=== PATIENT | female | born 1980 | race Caucasian/White ===

== ENCOUNTER → 2019-07-30 13:42 | Outpatient (BNVA) | payer MEDICARE, MEDICAID, SELFPAY | PROVIDERS: Family Provider Nurse Practitioner; PCP Nurse Practitioner; Visit Provider Nurse Practitioner Psychiatric/Mental Health | DX: F33.2 Major depressive disorder, recurrent severe without psychotic features (principal); F41.0 Panic disorder [episodic paroxysmal anxiety]; F50.81 Binge eating disorder; Z91.5 Personal history of self-harm; F17.210 Nicotine dependence, cigarettes, uncomplicated | CPT/HCPCS: 99213 ==

== ENCOUNTER → 2019-09-02 13:48 | Outpatient (BNVA) | payer MEDICARE, MEDICAID, SELFPAY | PROVIDERS: Family Provider Nurse Practitioner; PCP Nurse Practitioner; Visit Provider Nurse Practitioner Psychiatric/Mental Health | DX: F33.2 Major depressive disorder, recurrent severe without psychotic features (principal); F41.0 Panic disorder [episodic paroxysmal anxiety]; F50.81 Binge eating disorder; F64.9 Gender identity disorder, unspecified; F17.210 Nicotine dependence, cigarettes, uncomplicated; Z91.5 Personal history of self-harm | CPT/HCPCS: 99213 ==

== ENCOUNTER → 2019-09-03 13:10 | Outpatient (BNVA) | payer MEDICARE, MEDICAID, SELFPAY | PROVIDERS: Family Provider Nurse Practitioner; PCP Nurse Practitioner; Visit Provider Anesthesiology | DX: M51.16 Intervertebral disc disorders with radiculopathy, lumbar region (principal); M17.0 Bilateral primary osteoarthritis of knee; F17.210 Nicotine dependence, cigarettes, uncomplicated; Z79.891 Long term (current) use of opiate analgesic | CPT/HCPCS: 99214 ==

== ENCOUNTER → 2019-09-08 16:02 | Outpatient (BNVA) | payer MEDICARE, MEDICAID, SELFPAY | PROVIDERS: Family Provider Nurse Practitioner; PCP Nurse Practitioner; Referring Provider Nurse Practitioner; Visit Provider Nurse Practitioner | DX: E03.9 Hypothyroidism, unspecified (principal); Z79.899 Other long term (current) drug therapy | CPT/HCPCS: 80053; 80061; 84443; 85025 ==

== ENCOUNTER → 2019-10-22 07:32 | Outpatient (BNVA) | payer MEDICARE, MEDICAID, SELFPAY | PROVIDERS: Family Provider Nurse Practitioner; PCP Nurse Practitioner; Visit Provider Nurse Practitioner Psychiatric/Mental Health | DX: F33.2 Major depressive disorder, recurrent severe without psychotic features (principal); F41.0 Panic disorder [episodic paroxysmal anxiety]; F50.81 Binge eating disorder; F64.9 Gender identity disorder, unspecified; F17.210 Nicotine dependence, cigarettes, uncomplicated; Z91.5 Personal history of self-harm; Z03.89 Encounter for observation for other suspected diseases and conditions ruled out; F41.1 Generalized anxiety disorder | CPT/HCPCS: 99213 ==

== ENCOUNTER → 2019-11-18 08:15 | Outpatient (BNVA) | payer MEDICARE, MEDICAID, SELFPAY | PROVIDERS: Family Provider Nurse Practitioner; PCP Nurse Practitioner; Visit Provider Nurse Practitioner Psychiatric/Mental Health | DX: F33.2 Major depressive disorder, recurrent severe without psychotic features (principal); F41.0 Panic disorder [episodic paroxysmal anxiety]; F50.81 Binge eating disorder; F64.9 Gender identity disorder, unspecified; F17.210 Nicotine dependence, cigarettes, uncomplicated; Z91.5 Personal history of self-harm | CPT/HCPCS: 99213 ==

== ENCOUNTER 2019-12-16 14:59 | Emergency (ER) | payer MEDICARE, MEDICAID, SELFPAY ==
[2019-12-16 15:42] VITALS: BP 186/122; PULSE 100; RESP 18; TEMP 36.4; O2SAT 94; BMI 59.6
--- NOTE | 2019-12-16 17:14 | W.ED.GENADLT ---
HPI - General Adult General: Chief complaint: General Medical Stated complaint: multiple complaints Time Seen by Provider: 12/16/19 17:04 Source: patient Mode of arrival: ambulatory Limitations: no limitations History of Present Illness: HPI narrative: Patient comes in today for complaints of bilateral lower extremities being erythematous. Patient believes he has a bout of cellulitis. Patient is also been concerned about some urinary difficulty and irregularity in her menstrual cycle. Patient thinks that she may be . Patient appears well. Patient appears in no pain at rest. Patient also has a history of chronic back pain and reports some mid back pain radiating around to bilateral upper abdomen. Review of Systems General: Reports: 10 or more systems reviewed and unremarkable except in HPI and below GI: Reports: abdominal pain : Reports: difficulty voiding and irregular period Skin/Breast: Reports: erythema (Bilateral lower extremities, worse on the left) PFSH ED PFSH: Medical History (Updated 12/16/19 @ 19:06 by SUSAN Chou) Acute bilateral knee pain Bilateral primary osteoarthritis of knee Binge eating disorder DDD (degenerative disc disease) Encounter for long-term opiate analgesic use Gender dysphoria Hypothyroidism Intervertebral disc disorders with radiculopathy, lumbar region Major depressive disorder, recurrent severe without psychotic features Nicotine dependence, cigarettes, uncomplicated Panic disorder without agoraphobia Personal history of self-harm Surgical History Hx of foot surgery Family History Other Diabetes Heart disease Social History Smoking and tobacco status: current every day smoker cigarettes Packs smoked per day: 0.5 Years cigarettes smoked: 20 Quit status (tobacco): not considering quitting Second hand smoke exposure: No Smoking risk assessment/counseling performed?: No Reason smoking risk assessment not done: other Alcohol intake: never History of recent travel: No Female Reproductive History: Date of last menstrual period: 11/25/19 Physical Exam Const: COMMON NORMALS: no acute distress and patient oriented x3 GENERAL APPEARANCE: cooperative HENMT: COMMON NORMALS: normocephalic, TM's normal bilaterally and Normal external nose present HEAD & SCALP: normal to inspection and normocephalic NOSE: Normal external nose present TYMPANIC MEMBRANE: TM's normal bilaterally MOUTH: Normal oral and palatal mucosa present THROAT: posterior oropharynx normal Eye: GENERAL EYE: appearance normal, both eyes and all related structures Neck/C-Spine: COMMON NORMALS: full ROM Lymph: LYMPHATIC: no lymphadenopathy noted Chest: COMMONS NORMALS: normal inspection of the chest Resp: COMMON NORMALS: normal respiratory effort EFFORT & INSPECTION: Yes able to speak in complete sentences Cardio: COMMON NORMALS: regular rate and regular rhythm RATE: regular rate RHYTHM: regular rhythm GI: PALPATION: Yes Tenderness to palpation present (GI) (Left upper and right upper quadrant abdominal tenderness to palpation. Normal bowel sounds are noted. No rigidity is noted. Abdomen is soft.) : COMMON NORMALS: Yes no CVA tenderness BLADDER/KIDNEY EXAM: Yes no CVA tenderness Back/Pelvis: COMMON NORMALS: no CVA tenderness and thoracic and lumbar spine normal to inspection Extremity: COMMON NORMALS: normal to inspection Neuro: COMMON NORMALS: patient oriented x3 and moves all extremities Psych: COMMON NORMALS: mental status grossly normal and cooperative Skin: NARRATIVE SKIN EXAM: Erythema is apparent to the left lower extremity up to mid lower leg. Pulses are intact distally. Right lower leg has less erythema without any other abnormality. Course Vital Signs: Vital signs: Vital Signs Temperature 97.5 F L 12/16/19 15:42 Pulse Rate 100 12/16/19 15:42 Respiratory Rate 18 12/16/19 15:42 Blood Pressure 186/122 12/16/19 15:42 Pulse Oximetry 94 12/16/19 15:42 MDM - General Adult [facility] Narrative: Medical decision making narrative: Patient comes in today with multiple complaints. Patient had redness to bilateral lower extremities worse on the left. Patient felt that her cellulitis may be acting up. Patient is also had some urinary difficulty with incontinence at times. Patient appears well. Vital signs were normal. Also patient complained of some right upper quadrant abdominal pain radiating to her back at times. Patient has no obese lady. Abdomen soft with normal bowel sounds. Laboratory values noted no significant white blood cell elevation. Patient did have some elevation in her liver enzymes but no elevation in lipase. Patient's blood glucose was slightly elevated at 340. Urinalysis showed a large amount of white blood cells. Reviewed with patient recommendations for treatment and further evaluation with recommendations of ultrasound of the gallbladder. I did offer to do that ultrasound this evening but patient wished to leave in order to attend a barbecue with her family. Recommended patient follow-up with primary care for further evaluation or return to the ER for worsening symptoms. Patient reported understanding. Lab Data: Labs: Lab Results 12/16/19 12/16/19 12/16/19 Range/Units 17:30 17:40 17:40 WBC 7.7 (4.0-10.0) 10^3/ uL RBC 4.84 (4.1-5.3) 10^6/u L Hgb 13.6 (11.5-15.3) g/dL Hct 43.1 (37.0-47.0) % MCV 89.0 (81-99) fL MCH 28.1 (28.0-34.0) pg MCHC 31.6 (30.0-36.0) g/dL RDW 14.5 (12.1-15.1) % Plt Count 282 (130-400) 10^3/c mm MPV 10.4 (7.4-10.4) fL Neut % (Auto) 69.3 % Lymph % (Auto) 22.8 % [place] % (Auto) 5.8 % Eos % (Auto) 1.4 % Baso % (Auto) 0.3 % Neut # (Auto) 5.4 (1.8-7.7) 10^3/u L Lymph # (Auto) 1.8 (0.8-4.8) 10^3/u L [place] # (Auto) 0.5 (0.2-0.9) 10^3/u L Eos # (Auto) 0.1 (0.0-0.8) 10^3/u L Baso # (Auto) 0.0 (0.0-0.1) 10^3/u L Nucleated RBC % (a uto) 0 % Nucleated RBCs # 0.0 /100WBC Sodium 134 L (136-145) mmol/L Potassium 4.5 (3.5-5.1) mmol/L Chloride 94 L (98-107) mmol/L Carbon Dioxide 28 (22-29) mmol/L Anion Gap 16.5 (5-19) BUN 12 (6-20) mg/dL Creatinine 0.7 (0.5-0.9) mg/dL GFR Calculation 93.6 (90-130) mL/min Glucose 346 H (65-115) mg/dL Calculated Osmolal ity 288 (285-295) mOsm/k g Calcium 9.3 (8.5-10.5) mg/dL Total Bilirubin 0.3 (0.15-1.2) mg/dL AST 84 H (0-32) U/L ALT 76 H (0-33) U/L Alkaline Phosphata se 108 H (35-105) IU/L Total Protein 7.8 (6.6-8.7) g/dL Albumin 4.2 (3.5-5.2) g/dL Globulin 3.6 (1.3-4.6) g/dL Lipase (13-60) U/L HCG, Qual (Negative) Urine Color Yellow (Yellow) Urine Appearance Cloudy (CLEAR) Urine pH 5 (5-7) Ur Specific Gravit y 1.020 (1.005-1.030) Urine Protein Neg (Negative) Urine Glucose (UA) 4+ H (Normal) Urine Ketones Negative (Negative) Urine Blood Neg (Negative) Urine Nitrate Negative (Negative) Urine Bilirubin Neg (NEGATIVE) Urine Urobilinogen Norm (Negative) mg/dL Ur Leukocyte Rosalva ase 1+ H (Negative) Urine RBC 0-4 H (0-2) /hpf Urine WBC 80-100 H (0-5) /hpf Ur Squamous Epith Cells 0-4 H (0-5) Ur Transition Epit h Cell 0-4 /hpf Urine Bacteria 1+ H (NONE) 12/16/19 12/16/19 Range/Units 17:40 17:40 WBC (4.0-10.0) 10^3/ uL RBC (4.1-5.3) 10^6/u L Hgb (11.5-15.3) g/dL Hct (37.0-47.0) % MCV (81-99) fL MCH (28.0-34.0) pg MCHC (30.0-36.0) g/dL RDW (12.1-15.1) % Plt Count (130-400) 10^3/c mm MPV (7.4-10.4) fL Neut % (Auto) % Lymph % (Auto) % [place] % (Auto) % Eos % (Auto) % Baso % (Auto) % Neut # (Auto) (1.8-7.7) 10^3/u L Lymph # (Auto) (0.8-4.8) 10^3/u L [place] # (Auto) (0.2-0.9) 10^3/u L Eos # (Auto) (0.0-0.8) 10^3/u L Baso # (Auto) (0.0-0.1) 10^3/u L Nucleated RBC % (a uto) % Nucleated RBCs # /100WBC Sodium (136-145) mmol/L Potassium (3.5-5.1) mmol/L Chloride (98-107) mmol/L Carbon Dioxide (22-29) mmol/L Anion Gap (5-19) BUN (6-20) mg/dL Creatinine (0.5-0.9) mg/dL GFR Calculation (90-130) mL/min Glucose (65-115) mg/dL Calculated Osmolal ity (285-295) mOsm/k g Calcium (8.5-10.5) mg/dL Total Bilirubin (0.15-1.2) mg/dL AST (0-32) U/L ALT (0-33) U/L Alkaline Phosphata se (35-105) IU/L Total Protein (6.6-8.7) g/dL Albumin (3.5-5.2) g/dL Globulin (1.3-4.6) g/dL Lipase 23 (13-60) U/L HCG, Qual Negative (Negative) Urine Color (Yellow) Urine Appearance (CLEAR) Urine pH (5-7) Ur Specific Gravit y (1.005-1.030) Urine Protein (Negative) Urine Glucose (UA) (Normal) Urine Ketones (Negative) Urine Blood (Negative) Urine Nitrate (Negative) Urine Bilirubin (NEGATIVE) Urine Urobilinogen (Negative) mg/dL Ur Leukocyte Rosalva ase (Negative) Urine RBC (0-2) /hpf Urine WBC (0-5) /hpf Ur Squamous Epith Cells (0-5) Ur Transition Epit h Cell /hpf Urine Bacteria (NONE) Discharge Plan Discharge Patient Disposition: Home, Self-Care Clinical Impression: UTI (urinary tract infection) Qualifiers: Urinary tract infection type: acute cystitis Hematuria presence: with hematuria Qualified Code(s): N30.01 - Acute cystitis with hematuria Cellulitis Qualifiers: Site of cellulitis: extremity Site of cellulitis of extremity: lower extremity Laterality: unspecified laterality Qualified Code(s): L03.119 - Cellulitis of unspecified part of limb Abdominal pain Qualifiers: Abdominal location: right upper quadrant Qualified Code(s): R10.11 - Right upper quadrant pain Condition: Stable Prescriptions: New cephalexin 500 mg capsule 500 mg PO Q8H 10 Days Qty: 30 RF: 0 No Action montelukast 10 mg tablet 10 mg PO DAILY RF: 0 gabapentin 600 mg tablet 1,200 mg PO TID 30 Days Qty: 180 RF: 2 quetiapine [Seroquel] 50 mg tablet 50 mg PO BID PRN (Reason: anxiety/agitation) Qty: 60 RF: 1 paroxetine HCl [Paxil] 20 mg tablet 20 mg PO QAM Qty: 30 RF: 3 paroxetine HCl [Paxil] 40 mg tablet 40 mg PO QAM Qty: 30 RF: 3 albuterol sulfate 90 mcg/actuation HFA aerosol inhaler 2 puff INHALATION 6XD PRN (Reason: shortness of breath or wheezing) Qty: 18 RF: 2 tizanidine [Zanaflex] 6 mg capsule 6 mg PO .Q4-6H PRN (Reason: muscle spasticity) 30 Days Qty: 90 RF: 2 levothyroxine 50 mcg capsule 50 mcg PO DAILY 30 Days Qty: 30 RF: 1 naproxen [Naprosyn] 500 mg tablet 500 mg PO Q12H 30 Days Qty: 60 RF: 2 amitriptyline 150 mg tablet 150 mg PO BEDTIME PRN (Reason: Sleep) RF: 0 Vyvanse 30 mg capsule 30 mg PO QAM PRN (Reason: unknown) RF: 0 trazodone 300 mg tablet 300 mg PO BEDTIME RF: 0 Tylenol 325 mg Tablet 325 mg PO PRN RF: 0 Discharge Orders: Discharge Order (Routine); Ordered 12/16/19 Ordered By: Sukhi Vigil Referrals: Gita Mary FNP [Primary Care Provider] - Discharge Diet: Usual diet Discharge Activity: Increase activity as tolerated Patient Instructions: Urinary Tract Infection in Women (ED) Activity Restrictions/Additional Instructions: Home and rest. Drink plenty of water. Take antibiotics as directed. Follow-up with primary care regarding right upper quadrant pain, would suggest having an ultrasound of the gallbladder to evaluate the gallbladder further for disease. Return to the ER for worsening symptoms or new concerns. Coding Level of Care Code ED Mobile Phone Salesperson for Chg Fwd Exam Comprehensive
[2019-12-16 17:47] LABS: Basophils % 0.3 %; Eosinophils # 0.1 10^3/uL (0.0-0.8); Eosinophils % 1.4 %; Hematocrit 43.1 % (37.0-47.0); Hemoglobin 13.6 g/dL (11.5-15.3); Lymphocytes # 1.8 10^3/uL (0.8-4.8); Lymphocytes % 22.8 %; Mean Corpuscular HGB Conc 31.6 g/dL (30.0-36.0); Mean Corpuscular Hemoglobin 28.1 pg (28.0-34.0); Mean Platelet Volume 10.4 fL (7.4-10.4); Monocytes # 0.5 10^3/uL (0.2-0.9); Monocytes % 5.8 %; Neutrophils # 5.4 10^3/uL (1.8-7.7); Neutrophils % 69.3 %; Nucleated Red Blood Cells % 0 %; Platelet Count 282 10^3/cmm (130-400); Red Blood Count 4.84 10^6/uL (4.1-5.3); Red Cell Distribution Width 14.5 % (12.1-15.1); White Blood Count 7.7 10^3/uL (4.0-10.0)
[2019-12-16 18:03] LABS: Alanine Aminotransferase 76 U/L (0-33); Albumin Level 4.2 g/dL (3.5-5.2); Alkaline Phosphatase 108 IU/L (35-105); Anion Gap 16.5 (5-19); Aspartate Amino Transferase 84 U/L (0-32); Blood Urea Nitrogen 12 mg/dL (6-20); Calcium 9.3 mg/dL (8.5-10.5); Carbon Dioxide 28 mmol/L (22-29); Chloride 94 mmol/L (98-107); Globulin 3.6 g/dL (1.3-4.6); Glomerular Filtration Rate 93.6 mL/min (90-130); Glucose 346 mg/dL (65-115); Osmolality Calculated 288 mOsm/kg (285-295); Potassium 4.5 mmol/L (3.5-5.1); Sodium 134 mmol/L (136-145); Total Bilirubin 0.3 mg/dL (0.15-1.2); Total Protein 7.8 g/dL (6.6-8.7)
[2019-12-16 18:24] LABS: HCG, Serum Qual Negative (Negative)
[2019-12-16 18:45] LABS: Urine Appearance Cloudy (CLEAR); Urine Color Yellow (Yellow); pH Urine 5 (5-7)
[2019-12-16 18:46] LABS: Add Urine Microscopic? YES; Bilirubin Urine Neg (NEGATIVE); Blood Urine Neg (Negative); Glucose Urine UA 4+ (Normal); Ketones Urine Negative (Negative); Leukocyte Esterase Urine 1+ (Negative); Nitrate Urine Negative (Negative); Protein Urine Neg (Negative); Urobilinogen Urine Norm (Negative)
[2019-12-16 18:46] LABS: Lipase 23 U/L (13-60)
[2019-12-16 18:52] LABS: Add Urine Culture? Yes; Bacteria Urine 1+; RBC Urine 0-4 /hpf (0-2); Squamous Epithelial Cell Urine 0-4 (0-5); Transitional Epi Cells Urine 0-4 /hpf; WBC Urine 80-100 /hpf (0-5)
[2019-12-16 19:20] VITALS: BP 143/121
--- NOTE | 2019-12-16 19:21 | PC.NURSE ---
Patient rang call light and expressed concern about her blood pressure, I retook her blood pressure and informed the physician and her concern if she was . I went to inform the patient of what the physician told me and he followed me in to talk to her.
[2019-12-16] MEDS: cephALEXin 500 mg Capsule PO (19:27)
[2019-12-16 19:28] VITALS: BP 143/121; RESP 16
== END 2019-12-16 19:30 | disposition home or self-care (01) ==
PROVIDERS: Physician Assistant; Emergency Provider Nurse Practitioner Family; PCP Nurse Practitioner
DX: N30.01 Acute cystitis with hematuria (principal); L03.119 Cellulitis of unspecified part of limb; F17.210 Nicotine dependence, cigarettes, uncomplicated
CPT/HCPCS: 12345; 36415; 80053; 81001; 83690; 84703; 85025; 87077; 87086; 87186; 99281; 99283

== ENCOUNTER 2019-12-21 17:50 | Emergency (ER) | payer MEDICARE, MEDICAID, SELFPAY ==
[2019-12-21 18:32] VITALS: BP 187/133; PULSE 95; RESP 14; TEMP 36.6; O2SAT 97; BMI 58.7
[2019-12-21 19:30] VITALS: BP 140/113; PULSE 90; RESP 18; O2SAT 94
--- NOTE | 2019-12-21 19:35 | W.ED.GENADLT ---
HPI - General Adult General: Chief complaint: General Medical Stated complaint: l leg pain, side pain Time Seen by Provider: 12/21/19 19:24 History of Present Illness: HPI narrative: Patient currently being treated for urinary tract infection complains about right kidney pain that radiates to her right flank been going on for a couple months worse this last week she comes the ER because he said it just hurts complaint: Right flank pain Onset (ago): month(s) Location: abdomen Severity: moderate Severity scale (1-10): 5 Quality: aching and sharp Pain Consistency: intermittent Relieving factors: none Exacerbating factors: none Associated symptoms: Reports no associated symptoms; Deny chest pain, dyspnea, headache(s), nausea, rash or vomiting Review of Systems Narrative: Dry mouth Const: Denies: fever(s), chills or body aches Eyes: Denies: change in vision or blurry vision ENMT: Denies: throat pain or nasal congestion Card: Denies: chest pain or dyspnea on exertion Resp: Denies: dyspnea, productive cough or non-productive cough GI: Denies: abdominal pain, nausea or vomiting : Reports: flank pain and urinary urgency Musc: Denies: extremity pain Skin/Breast: Denies: rash Neuro: Denies: headache(s) Psych: Denies: anxiety or depression Amilcar/Lymph: Denies: easy bruising PFS ED PFSH: Medical History (Updated 12/16/19 @ 19:06 by SUSAN Chou) Acute bilateral knee pain Bilateral primary osteoarthritis of knee Binge eating disorder DDD (degenerative disc disease) Encounter for long-term opiate analgesic use Gender dysphoria Hypothyroidism Intervertebral disc disorders with radiculopathy, lumbar region Major depressive disorder, recurrent severe without psychotic features Nicotine dependence, cigarettes, uncomplicated Panic disorder without agoraphobia Personal history of self-harm Surgical History Hx of foot surgery Family History Other Diabetes Heart disease Social History Smoking and tobacco status: current every day smoker cigarettes Packs smoked per day: 0.5 Years cigarettes smoked: 20 Quit status (tobacco): not considering quitting Second hand smoke exposure: No Smoking risk assessment/counseling performed?: No Reason smoking risk assessment not done: other Alcohol intake: never History of recent travel: No Female Reproductive History: Date of last menstrual period: 11/25/19 Physical Exam Const: COMMON NORMALS: no acute distress, average body habitus and patient oriented x3 HENMT: COMMON NORMALS: normocephalic HEAD & SCALP: normal to inspection and normocephalic FACE & SINUS: normal facial exam Eye: COMMON NORMALS: conjunctivae normal GENERAL EYE: appearance normal, both eyes and all related structures CONJUNCTIVA: Yes conjunctivae normal Neck/C-Spine: COMMON NORMALS: no JVD Chest: COMMONS NORMALS: normal inspection of the chest Resp: COMMON NORMALS: normal respiratory effort and clear to auscultation bilaterally AUSCULTATION: clear to auscultation bilaterally Cardio: COMMON NORMALS: no JVD, regular rate and regular rhythm RATE: regular rate RHYTHM: regular rhythm GI: COMMON NORMALS: Normal to inspection, nondistended, normoactive bowel sounds present : BLADDER/KIDNEY EXAM: Yes CVA tenderness (Pain radiates from the right flank into her abdomen and if I touch her skin it hurts to push deep it hurts ) on the right Back/Pelvis: GENERAL BACK: Yes CVA tenderness (Pain radiates from the right flank into her abdomen and if I touch her skin it hurts to push deep it hurts ) Extremity: COMMON NORMALS: normal to inspection and full ROM Neuro: COMMON NORMALS: patient oriented x3 Course Vital Signs: Vital signs: Vital Signs Temperature 97.8 F 12/21/19 18:32 Pulse Rate 90 12/21/19 19:30 Respiratory Rate 18 12/21/19 19:30 Blood Pressure 140/113 12/21/19 19:30 Pulse Oximetry 94 12/21/19 19:30 Discharge Plan Discharge Condition: Good Prescriptions: No Action montelukast 10 mg tablet 10 mg PO DAILY RF: 0 gabapentin 600 mg tablet 1,200 mg PO TID 30 Days Qty: 180 RF: 2 quetiapine [Seroquel] 50 mg tablet 50 mg PO BID PRN (Reason: anxiety/agitation) Qty: 60 RF: 1 paroxetine HCl [Paxil] 20 mg tablet 20 mg PO QAM Qty: 30 RF: 3 paroxetine HCl [Paxil] 40 mg tablet 40 mg PO QAM Qty: 30 RF: 3 albuterol sulfate 90 mcg/actuation HFA aerosol inhaler 2 puff INHALATION 6XD PRN (Reason: shortness of breath or wheezing) Qty: 18 RF: 2 tizanidine [Zanaflex] 6 mg capsule 6 mg PO .Q4-6H PRN (Reason: muscle spasticity) 30 Days Qty: 90 RF: 2 levothyroxine 50 mcg capsule 50 mcg PO DAILY 30 Days Qty: 30 RF: 1 naproxen [Naprosyn] 500 mg tablet 500 mg PO Q12H 30 Days Qty: 60 RF: 2 amitriptyline 150 mg tablet 150 mg PO BEDTIME PRN (Reason: Sleep) RF: 0 Vyvanse 30 mg capsule 30 mg PO QAM PRN (Reason: unknown) RF: 0 trazodone 300 mg tablet 300 mg PO BEDTIME RF: 0 Tylenol 325 mg Tablet 325 mg PO PRN RF: 0 cephalexin 500 mg capsule 500 mg PO Q8H 10 Days Qty: 30 RF: 0 Coding Level of Care Code ED Reconciliation Machine Operator for Chg Shilo
[2019-12-21 19:51] VITALS: BP 140/113
[2019-12-21] MEDS: cloNIDine 0.1 mg Tablet 0.3 MG PO (19:51)
[2019-12-21 20:00] LABS: Basophils % 0.3 %; Eosinophils # 0.1 10^3/uL (0.0-0.8); Eosinophils % 1.5 %; Hematocrit 40.8 % (37.0-47.0); Lymphocytes # 1.4 10^3/uL (0.8-4.8); Lymphocytes % 20.8 %; Mean Corpuscular HGB Conc 31.9 g/dL (30.0-36.0); Mean Corpuscular Hemoglobin 28.1 pg (28.0-34.0); Mean Corpuscular Volume 88.1 fL (81-99); Mean Platelet Volume 10.6 fL (7.4-10.4); Monocytes # 0.3 10^3/uL (0.2-0.9); Monocytes % 4.8 %; Neutrophils # 4.9 10^3/uL (1.8-7.7); Neutrophils % 71.7 %; Nucleated Red Blood Cells % 0 %; Platelet Count 262 10^3/cmm (130-400); Red Blood Count 4.63 10^6/uL (4.1-5.3); Red Cell Distribution Width 14.5 % (12.1-15.1); White Blood Count 6.9 10^3/uL (4.0-10.0)
[2019-12-21] MEDS: sodium chloride 0.9% 1,000 ML 999 ML IV (20:03)
[2019-12-21 20:13] LABS: Urine Appearance Clear (CLEAR); Urine Color Yellow (Yellow); pH Urine 5 (5-7)
[2019-12-21 20:14] LABS: Add Urine Microscopic? YES; Bilirubin Urine Neg (NEGATIVE); Blood Urine 3+ (Negative); Glucose Urine UA 4+ (Normal); Ketones Urine Negative (Negative); Leukocyte Esterase Urine Negative (Negative); Nitrate Urine Negative (Negative); Protein Urine Neg (Negative); Specific Gravity, Urine 1.015 (1.005-1.030); Urobilinogen Urine Norm (Negative)
[2019-12-21 20:15] LABS: Alanine Aminotransferase 85 U/L (0-33); Albumin Level 4.1 g/dL (3.5-5.2); Alkaline Phosphatase 102 IU/L (35-105); Anion Gap 18.2 (5-19); Aspartate Amino Transferase 119 U/L (0-32); Blood Urea Nitrogen 7 mg/dL (6-20); Calcium 9.4 mg/dL (8.5-10.5); Carbon Dioxide 25 mmol/L (22-29); Chloride 95 mmol/L (98-107); Globulin 3.5 g/dL (1.3-4.6); Glomerular Filtration Rate 111.9 mL/min (90-130); Glucose 376 mg/dL (65-115); Osmolality Calculated 289 mOsm/kg (285-295); Potassium 4.2 mmol/L (3.5-5.1); Sodium 134 mmol/L (136-145); Total Bilirubin 0.4 mg/dL (0.15-1.2); Total Protein 7.6 g/dL (6.6-8.7)
[2019-12-21 20:20] LABS: Add Urine Culture? No; Bacteria Urine TRACE; RBC Urine 0-4 /hpf (0-2); Squamous Epithelial Cell Urine 0-4 (0-5); WBC Urine 0-4 /hpf (0-5)
[2019-12-21] MEDS: ketorolac 30 mg/mL INJ IVP (20:54)
[2019-12-21 21:04] VITALS: BP 122/83; PULSE 78; RESP 18; O2SAT 94
[2019-12-21] MEDS: ketorolac 10 mg Tablet PO (21:52)
[2019-12-21 21:56] VITALS: BP 137/79; PULSE 91; RESP 18; O2SAT 94
[2019-12-22 03:37] LABS: Amphetamines Screen Urine Negative (Negative); Barbiturates Screen Urine Negative (Negative); Benzodiazepines Screen Urine Negative (Negative); Cocaine Screen Urine Negative (Negative); Opiate Screen Urine Negative (Negative); PCP Screen Urine Negative (Negative); THC Screen Urine Negative (Negative)
[2019-12-22 03:39] LABS: HCG Qualitative Urine. Negative (Negative)
== END 2019-12-21 21:58 | disposition home or self-care (01) ==
PROVIDERS: Emergency Provider Nurse Practitioner Family; PCP Nurse Practitioner
DX: R10.9 Unspecified abdominal pain (principal); F17.210 Nicotine dependence, cigarettes, uncomplicated; Z79.899 Other long term (current) drug therapy
CPT/HCPCS: 12345; 36415; 80053; 80306; 81001; 81025; 85025; 96360; 96361; 96372; 96374; 96375; 99283; J1815; J1885; J7030

== ENCOUNTER 2020-01-15 15:32 | Emergency (ER) | payer MEDICARE, MEDICAID, SELFPAY ==
[2020-01-15 15:41] VITALS: BP 159/95; PULSE 85; RESP 14; TEMP 36.3; O2SAT 96; BMI 58.3
--- NOTE | 2020-01-15 16:02 | XRR_ITS ---
PROCEDURE INFORMATION: Exam: XR Right Tibia and Fibula Exam date and time: 01/15/2020 4:03 PM Age: 39 years old Clinical indication: Injury or trauma; Fall; Initial encounter; Blunt trauma; Lower leg; Right; Additional info: Trauma/fall TECHNIQUE: Imaging protocol: XR Right tibia and fibula. Views: 2 views. COMPARISON: No relevant prior studies available. FINDINGS: Bones/joints: Normal. Soft tissues: There is edema and/or hematoma in the soft tissues surrounding the lower leg most prominent anteriorly. There are benign-appearing soft tissue calcifications. XR/XR tibia fibula RT 2V [id number] IMPRESSION: There is edema and/or hematoma in the soft tissues surrounding the lower leg most prominent anteriorly.
--- NOTE | 2020-01-15 16:03 | ED_ITS ---
HPI - Extremity Problem General: Chief complaint: Extremity Injury, Lower Stated complaint: right leg pain Time Seen by Provider: 01/15/20 15:59 History of Present Illness: HPI Narrative: Patient complains about right charles pain from a fall 2 days ago off the bed. She has a swelling above her right charles that is tender to touch and bruising is able ambulate MD Complaint: extremity pain and extremity swelling Onset (ago): day(s) Pain Consistency: constant Location: right and lower extremity Severity scale (1-10): 5 Quality: aching Relieving factors: nothing Exacerbating factors: range of motion Associated symptoms: Reports no associated symptoms; Deny chest pain, fever(s) or rash Review of Systems Const: Denies: fever(s), chills or body aches Eyes: Denies: change in vision or blurry vision ENMT: Denies: throat pain or nasal congestion Card: Denies: chest pain or dyspnea on exertion Resp: Denies: dyspnea, productive cough or non-productive cough GI: Denies: abdominal pain, nausea or vomiting Musc: Denies: extremity pain Skin/Breast: Reports: other (Has swelling skin and bruising right charles and also to her right humerus area); Denies: rash Neuro: Denies: headache(s) Psych: Denies: anxiety or depression Amilcar/Lymph: Denies: easy bruising PFSH ED PFSH: Medical History (Updated 12/29/19 @ 00:00 by ) Acute bilateral knee pain Bilateral primary osteoarthritis of knee Binge eating disorder DDD (degenerative disc disease) Encounter for long-term opiate analgesic use Gender dysphoria Hypothyroidism Intervertebral disc disorders with radiculopathy, lumbar region Major depressive disorder, recurrent severe without psychotic features Nicotine dependence, cigarettes, uncomplicated Panic disorder without agoraphobia Personal history of self-harm Surgical History Hx of foot surgery Family History Other Diabetes Heart disease Social History Smoking and tobacco status: current some day smoker cigarettes Packs smoked per day: 0.5 Years cigarettes smoked: 20 Quit status (tobacco): not considering quitting Second hand smoke exposure: No Smoking risk assessment/counseling performed?: No Reason smoking risk assessment not done: other Alcohol intake: never History of recent travel: No Female Reproductive History: Date of last menstrual period: 01/14/20 Physical Exam Const: COMMON NORMALS: no acute distress, average body habitus and patient oriented x3 HENMT: COMMON NORMALS: normocephalic HEAD & SCALP: normal to inspection and normocephalic FACE & SINUS: normal facial exam Eye: COMMON NORMALS: conjunctivae normal GENERAL EYE: appearance normal, both eyes and all related structures CONJUNCTIVA: Yes conjunctivae normal Neck/C-Spine: COMMON NORMALS: no JVD Chest: COMMONS NORMALS: normal inspection of the chest Resp: COMMON NORMALS: normal respiratory effort and clear to auscultation bilaterally AUSCULTATION: clear to auscultation bilaterally Cardio: COMMON NORMALS: no JVD, regular rate and regular rhythm RATE: regular rate RHYTHM: regular rhythm GI: COMMON NORMALS: Normal to inspection, nondistended, normoactive bowel sounds present Extremity: COMMON NORMALS: normal to inspection and full ROM Neuro: COMMON NORMALS: patient oriented x3 Skin: NARRATIVE SKIN EXAM: Bruising to right humerus and then has swollen area on her right lower leg proximal that appears to be a hematoma that is tender to the touch with bruising Course Vital Signs: Vital signs: Vital Signs Temperature 97.3 F L 01/15/20 15:41 Pulse Rate 85 01/15/20 15:41 Respiratory Rate 14 01/15/20 15:41 Blood Pressure 159/95 01/15/20 15:41 Pulse Oximetry 96 01/15/20 15:41 Discharge Plan Discharge Prescriptions: No Action gabapentin 600 mg tablet 1,200 mg PO TID 30 Days Qty: 180 RF: 2 quetiapine [Seroquel] 50 mg tablet 50 mg PO BID PRN (Reason: anxiety/agitation) Qty: 60 RF: 1 paroxetine HCl [Paxil] 20 mg tablet 20 mg PO QAM Qty: 30 RF: 3 paroxetine HCl [Paxil] 40 mg tablet 40 mg PO QAM Qty: 30 RF: 3 albuterol sulfate 90 mcg/actuation HFA aerosol inhaler 2 puff INHALATION 6XD PRN (Reason: shortness of breath or wheezing) Qty: 18 RF: 2 tizanidine [Zanaflex] 6 mg capsule 6 mg PO .Q4-6H PRN (Reason: muscle spasticity) 30 Days Qty: 90 RF: 2 levothyroxine 50 mcg capsule 50 mcg PO DAILY 30 Days Qty: 30 RF: 1 naproxen [Naprosyn] 500 mg tablet 500 mg PO Q12H 30 Days Qty: 60 RF: 2 trazodone 300 mg tablet 300 mg PO BEDTIME RF: 0 acetaminophen [Tylenol] 325 mg Tablet 325 mg PO PRN RF: 0 metformin 500 mg tablet 500 mg PO BID Qty: 30 RF: 0 Coding Level of Care Code ED Human Resources Director for Milagro Lao
[2020-01-15] MEDS: TRAMadol 50 mg Tablet 100 MG PO (16:08)
[2020-01-15 16:10] VITALS: PULSE 68
[2020-01-15 16:57] VITALS: PULSE 75; RESP 18; O2SAT 96
== END 2020-01-15 16:57 | disposition home or self-care (01) ==
PROVIDERS: Emergency Provider Nurse Practitioner Family; PCP Nurse Practitioner
DX: M79.604 Pain in right leg (principal); F17.210 Nicotine dependence, cigarettes, uncomplicated
CPT/HCPCS: 12345; 73590; 99281; 99282

== ENCOUNTER → 2020-01-18 14:35 | Outpatient (BNVA) | payer MEDICARE, MEDICAID, SELFPAY | PROVIDERS: PCP Nurse Practitioner; Visit Provider Family Medicine | DX: E11.65 Type 2 diabetes mellitus with hyperglycemia (principal) | CPT/HCPCS: 80048; 83036 ==

== ENCOUNTER → 2020-02-08 15:17 | Outpatient (BNVA) | payer MEDICARE, MEDICAID, SELFPAY | PROVIDERS: PCP Family Medicine; Visit Provider Family Medicine | DX: N39.3 Stress incontinence (female) (male) (principal); I10 Essential (primary) hypertension | CPT/HCPCS: 81000 ==

== ENCOUNTER 2020-03-05 19:16 | Emergency (ER) | payer MEDICARE, MEDICAID, SELFPAY ==
[2020-03-05 19:30] VITALS: BP 187/104; PULSE 109; RESP 16; TEMP 36.3; O2SAT 94; BMI 54.8
--- NOTE | 2020-03-05 20:38 | USR_ITS ---
PROCEDURE INFORMATION: Exam: US Pelvis, Transvaginal Exam date and time: 03/05/2020 9:05 PM Age: 39 years old Clinical indication: Other: Bleeding since 08/2019; Additional info: Vaginal bleeding TECHNIQUE: Imaging protocol: Real-time transvaginal pelvic ultrasound with image documentation. Transvaginal imaging was used for better evaluation of the endometrium and adnexa. COMPARISON: No relevant prior studies available. FINDINGS: Uterus/cervix: The endometrial stripe in the uterine fundus is unremarkable an measures 1 cm. The uterus measures 7.8 x 4.3 x 5.1 cm. There is a cluster of cysts in the lower uterine segment/cervix that has a honeycomb type appearance measuring 2.5 x 1.1 x 2.0 cm. The remainder of the uterus and myometrium is unremarkable. Right adnexa: The right ovary is not visualized. Left adnexa: The left ovary measures 2.3 x 2.4 x 1.5 cm. Subcentimeter left ovarian cysts are noted. The left ovary demonstrates good color flow. No torsion. Vasculature: There does appear to be some vascularity within the abnormality. The margins are poorly defined. Free fluid: None. US/US transvaginal [id number] IMPRESSION: 1. Honeycomb like appearance to the distal endometrium/cervix with multiple tiny cysts and poorly defined borders. This appearance is atypical for nabothian cysts. This appearance is concerning for gestational trophoblastic disease or molar . This does have an increased risk of carcinoma. 2. Unremarkable left ovary. Nonvisualization of the right ovary. No left ovarian torsion.
[2020-03-05 21:02] LABS: Basophils % 0.4 %; Eosinophils # 0.1 10^3/uL (0.0-0.8); Eosinophils % 1.1 %; Hematocrit 42.6 % (37.0-47.0); Hemoglobin 13.6 g/dL (11.5-15.3); Lymphocytes # 1.6 10^3/uL (0.8-4.8); Lymphocytes % 14.8 %; Mean Corpuscular HGB Conc 31.9 g/dL (30.0-36.0); Mean Corpuscular Hemoglobin 28.5 pg (28.0-34.0); Mean Corpuscular Volume 89.3 fL (81-99); Mean Platelet Volume 10.6 fL (7.4-10.4); Monocytes # 0.4 10^3/uL (0.2-0.9); Neutrophils # 8.75 10^3/uL (1.8-7.7); Neutrophils % 79.2 %; Nucleated Red Blood Cells % 0 %; Platelet Count 313 10^3/cmm (130-400); Red Blood Count 4.77 10^6/uL (4.1-5.3); Red Cell Distribution Width 13.9 % (12.1-15.1)
[2020-03-05 21:19] LABS: Alanine Aminotransferase 109 U/L (0-33); Albumin Level 4.5 g/dL (3.5-5.2); Alkaline Phosphatase 91 IU/L (35-105); Anion Gap 20.1 (5-19); Aspartate Amino Transferase 146 U/L (0-32); Blood Urea Nitrogen 33 mg/dL (6-20); Calcium 9.9 mg/dL (8.5-10.5); Carbon Dioxide 24 mmol/L (22-29); Chloride 94 mmol/L (98-107); Globulin 3.6 g/dL (1.3-4.6); Glomerular Filtration Rate 45.8 mL/min (90-130); Glucose 215 mg/dL (65-115); Lipase 50 U/L (13-60); Osmolality Calculated 282 mOsm/kg (285-295); Potassium 4.1 mmol/L (3.5-5.1); Sodium 134 mmol/L (136-145); Total Bilirubin 0.2 mg/dL (0.15-1.2); Total Protein 8.1 g/dL (6.6-8.7)
[2020-03-05 21:31] LABS: Add Urine Microscopic? YES; Bilirubin Urine Neg (NEGATIVE); Blood Urine 3+ (Negative); Glucose Urine UA 4+ (Normal); HCG Qualitative Urine. Negative (Negative); Ketones Urine Negative (Negative); Leukocyte Esterase Urine Negative (Negative); Nitrate Urine Negative (Negative); Protein Urine Neg (Negative); Urine Color Yellow (Yellow); Urobilinogen Urine Norm (Negative); pH Urine 5 (5-7)
[2020-03-05 21:35] LABS: Bacteria Urine TRACE; RBC Urine 50-80 /hpf (0-2); Squamous Epithelial Cell Urine 0-4 (0-5); WBC Urine 0-4 /hpf (0-5)
[2020-03-05 21:36] LABS: Add Urine Culture? Yes; Amorphous Sediment Urine TRACE
--- NOTE | 2020-03-05 23:31 | ED_ITS ---
HPI - Female Genitourinary General: Chief complaint: Vaginal Bleeding Stated complaint: vaginal bleeding, nausea, AL Time Seen by Provider: 03/05/20 20:29 Source: patient and family Mode of arrival: ambulatory Limitations: no limitations History of Present Illness: HPI Narrative: 39-year-old female patient presents to the emergency department with a 6-month history of vaginal bleeding. Bleeding has gradually gotten worse and has clots. She has associated abdominal cramping. She thought she may have been 21 for started 6 months ago but has not tried to get since then. She has an appointment with a memorial designer in about a week. However because of the pain and the bleeding she came in to be evaluated. MD elicited complaint: vaginal bleeding Onset (ago): month(s) (6) Location of symptoms: vaginal Severity: moderate Associated symptoms: Reports abdominal pain; Deny headache(s) or nausea Date of Last Menstrual Period: 03/05/20 Related Data: : 0 Review of Systems General: Reports: 10 or more systems reviewed and unremarkable except in HPI and below Const: Denies: fever(s), chills or body aches Eyes: Denies: change in vision or blurry vision ENMT: Denies: throat pain, enlarged tonsils, odynophagia, hoarseness, mouth pain or swelling of lips/tongue Card: Denies: palpitations, irregular heart rhythm, edema or swelling of feet/ankles Resp: Denies: dyspnea, productive cough or non-productive cough GI: Reports: abdominal pain; Denies: nausea or vomiting : Reports: vaginal bleeding; Denies: flank pain, difficulty voiding, dysuria, urinary frequency, urinary urgency or urinary hesitancy Musc: Denies: neck pain, back pain or extremity swelling Skin/Breast: Denies: rash, pruritus or erythema Neuro: Denies: headache(s), numbness in extremities or weakness in extremities Endo: Denies: polyuria, polydipsia or tired all the time PFSH ED PFSH: Medical History Acute bilateral knee pain Bilateral primary osteoarthritis of knee Binge eating disorder DDD (degenerative disc disease) Encounter for long-term opiate analgesic use Gender dysphoria Hypothyroidism Intervertebral disc disorders with radiculopathy, lumbar region Major depressive disorder, recurrent severe without psychotic features Nicotine dependence, cigarettes, uncomplicated Panic disorder without agoraphobia Personal history of self-harm Surgical History Hx of foot surgery Family History Other Diabetes Heart disease Social History Smoking and tobacco status: current some day smoker cigarettes Packs smoked per day: 0.5 Years cigarettes smoked: 20 Quit status (tobacco): not considering quitting Second hand smoke exposure: No Smoking risk assessment/counseling performed?: No Reason smoking risk assessment not done: other Alcohol intake: never History of recent travel: No Female Reproductive History: Date of last menstrual period: 03/05/20 : 0 Physical Exam Const: COMMON NORMALS: no acute distress, average body habitus, patient oriented x3, no limitations, healthy appearing, alert and well nourished HENMT: COMMON NORMALS: normocephalic, atraumatic and moist oral mucous membranes HEAD & SCALP: normocephalic and atraumatic Neck/C-Spine: COMMON NORMALS: no meningeal signs and no JVD Resp: COMMON NORMALS: normal respiratory effort, No retractions, No use of accessory muscles, clear to auscultation bilaterally and percussion normal AUSCULTATION: clear to auscultation bilaterally PERCUSSION: percussion normal Cardio: COMMON NORMALS: no JVD, regular rate, regular rhythm, S1 normal heart sound present, S2 normal heart sound present, No gallops present (Cardio), No clicks present (Cardio), No murmurs present (Cardio), No rub (Cardio) and Peripheral pulses 2+ throughout RATE: regular rate RHYTHM: regular rhythm HEART SOUNDS: S1 normal heart sound present and S2 normal heart sound present PERIPHERAL PULSES: Peripheral pulses 2+ throughout GI: COMMON NORMALS: Normal to inspection, nondistended, normoactive bowel sounds present, Soft to palpation, No hepatosplenomegaly present, no masses and no bruits PALPATION: Yes Soft to palpation, Yes Tenderness to palpation present (GI) Details: other (Lower abdomen) and Yes No hepatosplenomegaly present Neuro: COMMON NORMALS: patient oriented x3 SENSORIUM/ORIENTATION: Yes alert MENINGEAL SIGNS: Yes no meningeal signs Skin: COMMON NORMALS: no rashes or lesions noted, no wounds, turgor normal, no jaundice, no petechiae and no mottling GENERAL SKIN EXAM: no rashes or lesions noted and turgor normal Course Vital Signs: Vital signs: Vital Signs Temperature 97.3 F L 03/05/20 19:30 Pulse Rate 94 03/06/20 00:17 Respiratory Rate 18 03/06/20 00:17 Blood Pressure 176/94 03/06/20 00:17 Pulse Oximetry 94 03/06/20 00:17 MDM - Female MDM Narrative: Medical decision making narrative: 59-year-old obese female with persistent vaginal bleeding for the last 6 months presents with abdominal pain as well as vaginal bleeding. Ultrasound done shows concerning findings that may be suggestive of a gestational trophoblastic disease, however her urine and serum test were negative making this less likely in any case the findings are concerning enough that she definitely needs to see a memorial designer for further evaluation. Thankfully she has an appointment coming up soon and she is told to follow-up. She is also informed that the findings are possibly malignant. She states that her sister got diagnosed with a gynecologic cancer at her age so she was concerned about that. She is discharged home with pain medication. Medical Records: Attestation: I reviewed the patient's medical records. Lab Data: Attestation: I reviewed the patient's lab results. Labs: Lab Results 03/05/20 03/05/20 03/05/20 Range/Units 20:41 20:41 20:41 WBC 11.0 H (4.0-10.0) 10^3/ uL RBC 4.77 (4.1-5.3) 10^6/u L Hgb 13.6 (11.5-15.3) g/dL Hct 42.6 (37.0-47.0) % MCV 89.3 (81-99) fL MCH 28.5 (28.0-34.0) pg MCHC 31.9 (30.0-36.0) g/dL RDW 13.9 (12.1-15.1) % Plt Count 313 (130-400) 10^3/c mm MPV 10.6 H (7.4-10.4) fL Neut % (Auto) 79.2 % Lymph % (Auto) 14.8 % Logan % (Auto) 4.0 % Eos % (Auto) 1.1 % Baso % (Auto) 0.4 % Neut # (Auto) 8.75 H (1.8-7.7) 10^3/u L Lymph # (Auto) 1.6 (0.8-4.8) 10^3/u L Logan # (Auto) 0.4 (0.2-0.9) 10^3/u L Eos # (Auto) 0.1 (0.0-0.8) 10^3/u L Baso # (Auto) 0.0 (0.0-0.1) 10^3/u L Nucleated RBC % (a uto) 0 % Nucleated RBCs # 0.0 /100WBC Sodium 134 L (136-145) mmol/L Potassium 4.1 (3.5-5.1) mmol/L Chloride 94 L (98-107) mmol/L Carbon Dioxide 24 (22-29) mmol/L Anion Gap 20.1 H (5-19) BUN 33 H (6-20) mg/dL Creatinine 1.3 H (0.5-0.9) mg/dL GFR Calculation 45.8 L (90-130) mL/min Glucose 215 H (65-115) mg/dL Calculated Osmolal ity 282 L (285-295) mOsm/k g Calcium 9.9 (8.5-10.5) mg/dL Total Bilirubin 0.2 (0.15-1.2) mg/dL AST 146 H (0-32) U/L ALT 109 H (0-33) U/L Alkaline Phosphata se 91 (35-105) IU/L Total Protein 8.1 (6.6-8.7) g/dL Albumin 4.5 (3.5-5.2) g/dL Globulin 3.6 (1.3-4.6) g/dL Lipase 50 (13-60) U/L HCG, Qual (Negative) Ser , Win i-Qnt 0.50 mIU/mL Urine Color (Yellow) Urine Appearance (CLEAR) Urine pH (5-7) Ur Specific Gravit y (1.005-1.030) Urine Protein (Negative) Urine Glucose (UA) (Normal) Urine Ketones (Negative) Urine Blood (Negative) Urine Nitrate (Negative) Urine Bilirubin (NEGATIVE) Urine Urobilinogen (Negative) mg/dL Ur Leukocyte Rosalva ase (Negative) Urine RBC (0-2) /hpf Urine WBC (0-5) /hpf Ur Squamous Epith Cells (0-5) Amorphous Sediment Urine Bacteria (NONE) 03/05/20 03/05/20 Range/Units 21:18 21:18 WBC (4.0-10.0) 10^3/ uL RBC (4.1-5.3) 10^6/u L Hgb (11.5-15.3) g/dL Hct (37.0-47.0) % MCV (81-99) fL MCH (28.0-34.0) pg MCHC (30.0-36.0) g/dL RDW (12.1-15.1) % Plt Count (130-400) 10^3/c mm MPV (7.4-10.4) fL Neut % (Auto) % Lymph % (Auto) % Logan % (Auto) % Eos % (Auto) % Baso % (Auto) % Neut # (Auto) (1.8-7.7) 10^3/u L Lymph # (Auto) (0.8-4.8) 10^3/u L Logan # (Auto) (0.2-0.9) 10^3/u L Eos # (Auto) (0.0-0.8) 10^3/u L Baso # (Auto) (0.0-0.1) 10^3/u L Nucleated RBC % (a uto) % Nucleated RBCs # /100WBC Sodium (136-145) mmol/L Potassium (3.5-5.1) mmol/L Chloride (98-107) mmol/L Carbon Dioxide (22-29) mmol/L Anion Gap (5-19) BUN (6-20) mg/dL Creatinine (0.5-0.9) mg/dL GFR Calculation (90-130) mL/min Glucose (65-115) mg/dL Calculated Osmolal ity (285-295) mOsm/k g Calcium (8.5-10.5) mg/dL Total Bilirubin (0.15-1.2) mg/dL AST (0-32) U/L ALT (0-33) U/L Alkaline Phosphata se (35-105) IU/L Total Protein (6.6-8.7) g/dL Albumin (3.5-5.2) g/dL Globulin (1.3-4.6) g/dL Lipase (13-60) U/L HCG, Qual Negative (Negative) Ser , Win i-Qnt mIU/mL Urine Color Yellow (Yellow) Urine Appearance Sl cloudy A (CLEAR) Urine pH 5 (5-7) Ur Specific Gravit y 1.010 (1.005-1.030) Urine Protein Neg (Negative) Urine Glucose (UA) 4+ H (Normal) Urine Ketones Negative (Negative) Urine Blood 3+ H (Negative) Urine Nitrate Negative (Negative) Urine Bilirubin Neg (NEGATIVE) Urine Urobilinogen Norm (Negative) mg/dL Ur Leukocyte Rosalva ase Negative (Negative) Urine RBC 50-80 H (0-2) /hpf Urine WBC 0-4 H (0-5) /hpf Ur Squamous Epith Cells 0-4 H (0-5) Amorphous Sediment Trace Urine Bacteria Trace (NONE) Imaging Data: US: Radiologist's impression: [address] [address] Ultrasound Report Signed Patient: Al Chacon #: [id number] : 1980Acct#:[id number] Age/Sex: 39 / FADM Date: 03/05/20 Loc: ERRoom/Bed: Attending Dr: Ordering Provider/Ordering MD: Olivia Baca MD, [facility] [place] Date of Service: 03/05/20 Procedure(s): US transvaginal 47703 Accession Number(s): [id number] Report Number: [id number] PROCEDURE INFORMATION: Exam: US Pelvis, Transvaginal Exam date and time: 03/05/2020 9:05 PM Age: 39 years old Clinical indication: Other: Bleeding since 08/2019; Additional info: Vaginal bleeding TECHNIQUE: Imaging protocol: Real-time transvaginal pelvic ultrasound with image documentation. Transvaginal imaging was used for better evaluation of the endometrium and adnexa. COMPARISON: No relevant prior studies available. FINDINGS: Uterus/cervix: The endometrial stripe in the uterine fundus is unremarkable an measures 1 cm. The uterus measures 7.8 x 4.3 x 5.1 cm. There is a cluster of cysts in the lower uterine segment/cervix that has a honeycomb type appearance measuring 2.5 x 1.1 x 2.0 cm. The remainder of the uterus and myometrium is unremarkable. Right adnexa: The right ovary is not visualized. Left adnexa: The left ovary measures 2.3 x 2.4 x 1.5 cm. Subcentimeter left ovarian cysts are noted. The left ovary demonstrates good color flow. No torsion. Vasculature: There does appear to be some vascularity within the abnormality. The margins are poorly defined. Free fluid: None. US/US transvaginal [id number] IMPRESSION: 1. Honeycomb like appearance to the distal endometrium/cervix with multiple tiny cysts and poorly defined borders. This appearance is atypical for nabothian cysts. This appearance is concerning for gestational trophoblastic disease or molar . This does have an increased risk of carcinoma. 2. Unremarkable left ovary. Nonvisualization of the right ovary. No left ovarian torsion. Dictated By:Jasmyn Waldrop Signed By:Jaimee Waldropigned Date/Time:03/05/202205 DD/ 03 Discharge Plan Discharge Patient Disposition: Home Clinical Impression: Abnormal uterine and vaginal bleeding, unspecified Condition: Stable Prescriptions: New Lorcet (hydrocodone) 5-325 mg tablet 1 tab PO Q8H PRN (Reason: pain) Qty: 12 RF: 0 Continued chlorthalidone 25 mg tablet 25 mg PO DAILY Qty: 30 RF: 0 metformin 1,000 mg tablet 1,000 mg PO BID Qty: 60 RF: 0 Victoza 2-Jean-Pierre 0.6 mg/0.1 mL (18 mg/3 mL) pen injector 0.6 mg SUBCUT DAILY Qty: 6 RF: 0 (DME) blood-glucose meter [Accu-Chek Stormy Plus Meter] Misc See Rx Instructions .ROUTE .MEDSUPPLY Qty: 1 RF: 0 (DME) Accu-Chek Stormy Plus test strp Strip See Rx Instructions .ROUTE .MEDSUPPLY Qty: 100 RF: 0 lisinopril 20 mg tablet 20 mg PO DAILY Qty: 30 RF: 0 paroxetine HCl [Paxil] 20 mg tablet 20 mg PO QAM Qty: 30 RF: 3 paroxetine HCl [Paxil] 40 mg tablet 40 mg PO QAM Qty: 30 RF: 3 albuterol sulfate [ProAir HFA] 90 mcg/actuation HFA aerosol inhaler 2 puff INHALATION QID PRN (Reason: shortness of breath or wheezing) Qty: 8.5 RF: 0 oxybutynin chloride 5 mg tablet 5 mg PO BID Qty: 60 RF: 0 gabapentin 600 mg tablet 1,200 mg PO TID 30 Days Qty: 180 RF: 0 levothyroxine 50 mcg capsule 50 mcg PO DAILY 30 Days Qty: 30 RF: 1 naproxen [Naprosyn] 500 mg tablet 500 mg PO Q12H 30 Days Qty: 60 RF: 2 montelukast [Singulair] 10 mg tablet 10 mg PO DAILY Qty: 90 RF: 1 tizanidine [Zanaflex] 6 mg capsule 6 mg PO .Q4-6H PRN (Reason: muscle spasticity) 30 Days Qty: 90 RF: 2 trazodone 300 mg tablet 300 mg PO BEDTIME RF: 0 acetaminophen [Tylenol] 325 mg Tablet 325 mg PO PRN RF: 0 Discharge Orders: Discharge Order (Routine); Ordered 03/05/20 Ordered By: Olivia Baca Referrals: Enriqueta Mann DO [Primary Care Provider] - 4-7 days Patient Instructions: Abnormal Uterine Bleeding Activity Restrictions/Additional Instructions: Return for any new or worsening symptoms. Take the pain medicine as needed for pain. Follow-up with your memorial designer as scheduled. Discharge Date/Time: 03/06/20 00:05 Coding Level of Care Code ED Fire Extinguisher Inspector for Milagro Lao
[2020-03-05 23:59] VITALS: RESP 18; O2SAT 97
[2020-03-05] MEDS: oxyCODONE-APAP 5-325 mg Tablet 1 TAB PO (23:59)
[2020-03-06 00:17] VITALS: BP 176/94; PULSE 94; RESP 18; O2SAT 94
== END 2020-03-06 00:05 | disposition home or self-care (01) ==
PROVIDERS: Emergency Provider Family Medicine; PCP Family Medicine
DX: N93.9 Abnormal uterine and vaginal bleeding, unspecified (principal); Z79.84 Long term (current) use of oral hypoglycemic drugs; F17.210 Nicotine dependence, cigarettes, uncomplicated
CPT/HCPCS: 12345; 76830; 76856; 80053; 81001; 81025; 83690; 84702; 85025; 87086; 99282; 99283

== ENCOUNTER → 2020-03-16 17:00 | Outpatient (BNVA) | payer MEDICARE, MEDICAID, SELFPAY | PROVIDERS: PCP Family Medicine; Visit Provider Obstetrics & Gynecology | DX: N93.9 Abnormal uterine and vaginal bleeding, unspecified (principal); E11.65 Type 2 diabetes mellitus with hyperglycemia | CPT/HCPCS: 83001; 84443; 84702; 85025 ==

== ENCOUNTER → 2020-03-23 11:06 | Outpatient (BNVA) | payer MEDICAID, SELFPAY | PROVIDERS: PCP Family Medicine; Visit Provider Nurse Practitioner Psychiatric/Mental Health | DX: F33.2 Major depressive disorder, recurrent severe without psychotic features (principal); F41.0 Panic disorder [episodic paroxysmal anxiety]; F50.81 Binge eating disorder; F64.9 Gender identity disorder, unspecified; F17.210 Nicotine dependence, cigarettes, uncomplicated; Z91.5 Personal history of self-harm | CPT/HCPCS: 99213 ==

== ENCOUNTER 2020-03-23 11:54 | Outpatient (CLI) | payer MEDICARE, MEDICAID, SELFPAY ==
[2020-03-23 13:01] LABS: Blood Urea Nitrogen 16 mg/dL (6-20); Calcium 9.3 mg/dL (8.5-10.5); Carbon Dioxide 23 mmol/L (22-29); Chloride 95 mmol/L (98-107); Glomerular Filtration Rate 50.3 mL/min (90-130); Glucose 194 mg/dL (65-115); Osmolality Calculated 280 mOsm/kg (285-295); Sodium 134 mmol/L (136-145)
[2020-03-23 13:02] LABS: Anion Gap 21.1 (5-19); Potassium 5.1 mmol/L (3.5-5.1)
== END 2020-03-23 11:55 | disposition home or self-care (01) ==
LOC: LAB 11:55
PROVIDERS: PCP Family Medicine; Visit Provider Family Medicine
DX: I10 Essential (primary) hypertension (principal)
CPT/HCPCS: 80048; 99213

== ENCOUNTER → 2020-04-13 12:53 | Outpatient (BNVA) | payer MEDICARE, MEDICAID, SELFPAY | PROVIDERS: PCP Family Medicine; Visit Provider Obstetrics & Gynecology | DX: N93.9 Abnormal uterine and vaginal bleeding, unspecified (principal) | CPT/HCPCS: 81025; 88305 ==

== ENCOUNTER → 2020-04-14 14:25 | Outpatient (BNVA) | payer MEDICARE, MEDICAID, SELFPAY | PROVIDERS: PCP Family Medicine; Visit Provider Nurse Practitioner | DX: Z20.828 Contact with and (suspected) exposure to other viral communicable diseases (principal) | CPT/HCPCS: 87635 ==

== ENCOUNTER 2020-04-18 16:12 | Observation (INO) | payer MEDICARE, MEDICAID, SELFPAY ==
[2020-04-18] VITALS (7 sets, daily range): BP systolic 131–164; BP diastolic 74–88; PULSE 91–104; RESP 14–18; TEMP 36.2–36.6; O2SAT 92–98; BMI 56.0
--- NOTE | 2020-04-18 16:48 | W.ED.ABDPA2 ---
Documented by User: Azar Valle DO 04/25/20 06:21 HPI - Abdominal Pain General: Chief Complaint: Abdominal Pain Stated Complaint: ABDOMINAL PAIN Time Seen by Provider: 04/18/20 16:44 History of Present Illness: HPI narrative: 39 yo male abd pain reports abdominal pain on the right side radiating around to her back. Denies dysuria urgency or frequency denies any history of kidney stones. She has had a lot of nausea she reports some vomiting at home but has not had any here. She has had some abnormal vaginal bleeding and had an endometrial biopsy last week. She is not having any cough or respiratory symptoms MD elicited complaint: abdominal pain Pertinent past history: other (Recent endometrial biopsy) Onset (ago): day(s) Pain Consistency: constant Location: RUQ Severity: severe Quality: cramping Radiation: R flank and back Exacerbating factors: movement Relieving factors: rest Associated Symptoms: Reports anorexia, bloating, chills, GI cramping, nausea, poor appetite and vomiting; Denies change in bowel habits, change in stool character, coffee ground emesis, diarrhea, dyspepsia, dysuria, excessive flatus, fever(s), heartburn, hematochezia, hematuria, hematemesis, fecal incontinence, loose stools, melena and syncope Related Data: Date of Last Menstrual Period: 03/05/20 Review of Systems Const: Reports: chills; Denies: fever(s) ENMT: Denies: throat pain, ear or mastoid pain, nasal discharge or nasal congestion Card: Denies: syncope Resp: Denies: dyspnea, productive cough or non-productive cough GI: Reports: nausea, vomiting, bloating and GI cramping; Denies: hematemesis, coffee ground emesis, heartburn, diarrhea, excessive flatus, fecal incontinence, change in bowel habits, change in stool character, hematochezia or melena : Denies: dysuria or hematuria Skin/Breast: Denies: rash or pruritus PFSH ED PFSH: Medical History Asthma Benign essential HTN Bilateral primary osteoarthritis of knee Binge eating disorder DDD (degenerative disc disease) Fatty infiltration of liver Gender dysphoria Hypothyroidism Intervertebral disc disorders with radiculopathy, lumbar region Major depressive disorder, recurrent severe without psychotic features Nicotine dependence, cigarettes, uncomplicated Panic disorder without agoraphobia Personal history of self-harm Uncontrolled type 2 diabetes mellitus, without long-term current use of insulin Surgical History History of endometrial biopsy (04/13/20) benign endocervical epithelium Hx of foot surgery S/P laparoscopic appendectomy (04/19/20) Family History Mother Diabetes Other Heart disease Social History Smoking and tobacco status: current some day smoker cigarettes Packs smoked per day: 0.5 Years cigarettes smoked: 20 Quit status (tobacco): not considering quitting Second hand smoke exposure: No Alcohol intake: current Alcohol intake frequency: holidays/special occasions only Alcohol type: beer and hard liquor Household members: other Details: partner and her mom History of recent travel: No Current gender identity: Male and Other Gender Identity Comment: Goes by Saul, considering formal transition Female Reproductive History: Date of last menstrual period: 03/05/20 Physical Exam Const: COMMON NORMALS: no acute distress GENERAL APPEARANCE: cooperative and comfortable ORIENTATION/CONSCIOUSNESS: Yes awake, Yes oriented to person, Yes oriented to place and Yes oriented to time HENMT: COMMON NORMALS: normocephalic, atraumatic and hearing grossly normal bilaterally HEAD & SCALP: normocephalic and atraumatic Neck/C-Spine: COMMON NORMALS: no JVD Resp: COMMON NORMALS: normal respiratory effort, No retractions, No use of accessory muscles and clear to auscultation bilaterally AUSCULTATION: clear to auscultation bilaterally Cardio: COMMON NORMALS: no JVD, regular rate, regular rhythm and No murmurs present (Cardio) RATE: regular rate RHYTHM: regular rhythm GI: COMMON NORMALS: No hepatosplenomegaly present AUSCULTATION: Yes normoactive bowel sounds PALPATION: Yes Tenderness to palpation present (GI) Details: RLQ and RUQ, No Guarding due to palpation present (GI) and Yes No hepatosplenomegaly present Extremity: COMMON NORMALS: normal to inspection, capillary refill normal, no clubbing, cyanosis or edema, no calf tenderness and no pedal edema Neuro: SENSORIUM/ORIENTATION: Yes oriented to person, Yes oriented to place and Yes oriented to time Skin: COMMON NORMALS: no rashes or lesions noted GENERAL SKIN EXAM: no rashes or lesions noted Course Vital Signs: Vital signs: Vital Signs Temperature 98.1 F 04/19/20 12:33 Pulse Rate 99 04/19/20 12:33 Respiratory Rate 18 04/19/20 12:33 Blood Pressure 136/85 04/19/20 12:33 Pulse Oximetry 92 04/19/20 12:33 MDM - Abdominal Pain MDM Narrative: Medical decision making narrative: Elevated white count CT is pending care turned over to Dr. Vickers at change of shift. See his notes for final diagnosis and disposition Lab Data: Labs: Lab Results 04/18/20 04/18/20 04/18/20 Range/Units 16:40 16:40 16:40 WBC Cancelled Corrected WBC Cancelled RBC Cancelled Hgb Cancelled Hct Cancelled MCV Cancelled MCH Cancelled MCHC Cancelled RDW Cancelled Plt Count Cancelled MPV Cancelled Gran % Cancelled Neut % (Auto) Cancelled Lymph % (Auto) Cancelled Bladen % (Auto) Cancelled Eos % (Auto) Cancelled Baso % (Auto) Cancelled Neut # (Auto) Cancelled Lymph # (Auto) Cancelled Bladen # (Auto) Cancelled Eos # (Auto) Cancelled Baso # (Auto) Cancelled Absolute Gran (aut o) Cancelled Nucleated RBC % (a uto) Cancelled Nucleated RBCs # Cancelled Sodium 133 L (136-145) mmol/L Potassium 3.1 L (3.5-5.1) mmol/L Chloride 96 L (98-107) mmol/L Carbon Dioxide 21 L (22-29) mmol/L Anion Gap 19.1 H (5-19) BUN 24 H (6-20) mg/dL Creatinine 1.3 H (0.5-0.9) mg/dL GFR Calculation 45.8 L (90-130) mL/min Glucose 187 H (65-115) mg/dL Calculated Osmolal ity 285 (285-295) mOsm/k g Calcium 9.4 (8.5-10.5) mg/dL Magnesium (1.7-2.3) mg/dL Total Bilirubin 0.4 (0.15-1.2) mg/dL AST 29 (0-32) U/L ALT 44 H (0-33) U/L Alkaline Phosphata se 72 (35-105) IU/L Total Protein 7.4 (6.6-8.7) g/dL Albumin 3.3 L (3.5-5.2) g/dL Globulin 4.1 (1.3-4.6) g/dL Lipase 15 (13-60) U/L HCG, Qual Negative (Negative) Urine Color (Yellow) Urine Appearance (CLEAR) Urine pH (5-7) Ur Specific Gravit y (1.005-1.030) Urine Protein (Negative) Urine Glucose (UA) (Normal) Urine Ketones (Negative) Urine Blood (Negative) Urine Nitrate (Negative) Urine Bilirubin (Negative) Urine Urobilinogen (Negative) mg/dL Ur Leukocyte Rosalva ase (Negative) Urine RBC (0-2) /hpf Urine WBC (0-5) /hpf Ur Squamous Epith Cells (0-5) /hpf Amorphous Sediment Urine Bacteria (NONE) /hpf 04/18/20 04/18/20 04/18/20 Range/Units 16:40 17:35 18:48 WBC 18.0 H Corrected WBC RBC 3.57 L Hgb 10.5 L Hct 31.8 L MCV 89.1 MCH 29.4 MCHC 33.0 RDW 14.8 Plt Count 277 MPV 9.4 Gran % Neut % (Auto) 85.5 Lymph % (Auto) 7.6 Bladen % (Auto) 4.6 Eos % (Auto) 1.3 Baso % (Auto) 0.2 Neut # (Auto) 15.35 H Lymph # (Auto) 1.4 Bladen # (Auto) 0.8 Eos # (Auto) 0.2 Baso # (Auto) 0.0 Absolute Gran (aut o) Nucleated RBC % (a uto) 0 Nucleated RBCs # 0.0 Sodium (136-145) mmol/L Potassium (3.5-5.1) mmol/L Chloride (98-107) mmol/L Carbon Dioxide (22-29) mmol/L Anion Gap (5-19) BUN (6-20) mg/dL Creatinine (0.5-0.9) mg/dL GFR Calculation (90-130) mL/min Glucose (65-115) mg/dL Calculated Osmolal ity (285-295) mOsm/k g Calcium (8.5-10.5) mg/dL Magnesium 2.0 (1.7-2.3) mg/dL Total Bilirubin (0.15-1.2) mg/dL AST (0-32) U/L ALT (0-33) U/L Alkaline Phosphata se (35-105) IU/L Total Protein (6.6-8.7) g/dL Albumin (3.5-5.2) g/dL Globulin (1.3-4.6) g/dL Lipase (13-60) U/L HCG, Qual (Negative) Urine Color Yellow (Yellow) Urine Appearance Sl hazy (CLEAR) Urine pH 5 (5-7) Ur Specific Gravit y 1.015 (1.005-1.030) Urine Protein Neg (Negative) Urine Glucose (UA) Norm (Normal) Urine Ketones Negative (Negative) Urine Blood Neg (Negative) Urine Nitrate Negative (Negative) Urine Bilirubin Neg (Negative) Urine Urobilinogen Neg (Negative) mg/dL Ur Leukocyte Rosalva ase Negative (Negative) Urine RBC None (0-2) /hpf Urine WBC 80-100 H (0-5) /hpf Ur Squamous Epith Cells 0-4 H (0-5) /hpf Amorphous Sediment Not Reportable Urine Bacteria 3+ H (NONE) /hpf Discharge Plan Discharge Patient Disposition: Placed in Observation Admit Provider: Gregorio Berry Clinical Impression: Acute appendicitis Condition: Stable Referrals: Gregorio Berry MD [Physician] - 05/02/20 3:00 pm Enriqueta Mann DO [Primary Care Provider] - 04/28/20 1:15 pm Discharge Diet: Advance as tolerated Patient Instructions: Hydrocodone/Acetaminophen (By mouth), Laxative, Stool Softeners (By mouth), Ondansetron (By mouth), Laparoscopic Appendectomy in Children (DC) Additional Instructions: 1. Up and walking as tolerated. 2. Ok to shower in 48 hours after surgery. 3. Remove Dermabond dressing in 7-10 days. 4. Do not lift more than 10 pounds. 5. Do not operate heavy machinery or drive while using pain medications. 6. Advised to return to ER or contact my office if there are any signs of infection like, increasing pain, fevers, chills, redness or drainage of pus. Discharge Date/Time: 04/18/20 20:04 Sign Out Sign Out Data: Patient Sign Out occurred on 04/18/20 at 18:36. Patient's care was discussed, and care was transferred from to Salome Dumont. Coding Level of Care Code ED Equipment Monitor Phototypesetting for Chg Fwd Documented by User: Salome Dumont 04/18/20 19:25 HPI - Abdominal Pain General: Chief Complaint: Abdominal Pain Stated Complaint: ABDOMINAL PAIN Time Seen by Provider: 04/18/20 16:44 PFSH ED PFSH: Medical History Asthma Benign essential HTN Bilateral primary osteoarthritis of knee Binge eating disorder DDD (degenerative disc disease) Fatty infiltration of liver Gender dysphoria Hypothyroidism Intervertebral disc disorders with radiculopathy, lumbar region Major depressive disorder, recurrent severe without psychotic features Nicotine dependence, cigarettes, uncomplicated Panic disorder without agoraphobia Personal history of self-harm Uncontrolled type 2 diabetes mellitus, without long-term current use of insulin Surgical History History of endometrial biopsy (04/13/20) benign endocervical epithelium Hx of foot surgery S/P laparoscopic appendectomy (04/19/20) Family History Mother Diabetes Other Heart disease Social History Smoking and tobacco status: current some day smoker cigarettes Packs smoked per day: 0.5 Years cigarettes smoked: 20 Quit status (tobacco): not considering quitting Second hand smoke exposure: No Alcohol intake: current Alcohol intake frequency: holidays/special occasions only Alcohol type: beer and hard liquor Household members: other Details: partner and her mom History of recent travel: No Current gender identity: Male and Other Gender Identity Comment: Goes by Saul, considering formal transition Course Vital Signs: Vital signs: Vital Signs Temperature 98.1 F 04/19/20 12:33 Pulse Rate 99 04/19/20 12:33 Respiratory Rate 18 04/19/20 12:33 Blood Pressure 136/85 04/19/20 12:33 Pulse Oximetry 92 04/19/20 12:33 MDM - Abdominal Pain MDM Narrative: Medical decision making narrative: 1899 -case was inherited by me at change of shift from Dr. Valle. Please see his note for his history, physical exam and medical decision-making notes. To my exam the patient does not have peritonitis but is tender in the right side of her abdomen. She has no fever and she is not currently vomiting. She is texting on her phone with no discomfort at this time. I reviewed the CT scan results with Dr. Berry who agrees to admit and would like to start her on Zosyn and he will evaluate further. Dr. Rivera will be notified about her consult for medical management. Currently patient is stable with stable vital signs and her pain is controlled. There is no sign of rupture on her CT. Lab Data: Attestation: I reviewed the patient's lab results. Labs: Lab Results 04/18/20 04/18/20 04/18/20 Range/Units 16:40 16:40 16:40 WBC Cancelled Corrected WBC Cancelled RBC Cancelled Hgb Cancelled Hct Cancelled MCV Cancelled MCH Cancelled MCHC Cancelled RDW Cancelled Plt Count Cancelled MPV Cancelled Gran % Cancelled Neut % (Auto) Cancelled Lymph % (Auto) Cancelled Bladen % (Auto) Cancelled Eos % (Auto) Cancelled Baso % (Auto) Cancelled Neut # (Auto) Cancelled Lymph # (Auto) Cancelled Bladen # (Auto) Cancelled Eos # (Auto) Cancelled Baso # (Auto) Cancelled Absolute Gran (aut o) Cancelled Nucleated RBC % (a uto) Cancelled Nucleated RBCs # Cancelled Sodium 133 L (136-145) mmol/L Potassium 3.1 L (3.5-5.1) mmol/L Chloride 96 L (98-107) mmol/L Carbon Dioxide 21 L (22-29) mmol/L Anion Gap 19.1 H (5-19) BUN 24 H (6-20) mg/dL Creatinine 1.3 H (0.5-0.9) mg/dL GFR Calculation 45.8 L (90-130) mL/min Glucose 187 H (65-115) mg/dL Calculated Osmolal ity 285 (285-295) mOsm/k g Calcium 9.4 (8.5-10.5) mg/dL Magnesium (1.7-2.3) mg/dL Total Bilirubin 0.4 (0.15-1.2) mg/dL AST 29 (0-32) U/L ALT 44 H (0-33) U/L Alkaline Phosphata se 72 (35-105) IU/L Total Protein 7.4 (6.6-8.7) g/dL Albumin 3.3 L (3.5-5.2) g/dL Globulin 4.1 (1.3-4.6) g/dL Lipase 15 (13-60) U/L HCG, Qual Negative (Negative) Urine Color (Yellow) Urine Appearance (CLEAR) Urine pH (5-7) Ur Specific Gravit y (1.005-1.030) Urine Protein (Negative) Urine Glucose (UA) (Normal) Urine Ketones (Negative) Urine Blood (Negative) Urine Nitrate (Negative) Urine Bilirubin (Negative) Urine Urobilinogen (Negative) mg/dL Ur Leukocyte Rosalva ase (Negative) Urine RBC (0-2) /hpf Urine WBC (0-5) /hpf Ur Squamous Epith Cells (0-5) /hpf Amorphous Sediment Urine Bacteria (NONE) /hpf 04/18/20 04/18/20 04/18/20 Range/Units 16:40 17:35 18:48 WBC 18.0 H Corrected WBC RBC 3.57 L Hgb 10.5 L Hct 31.8 L MCV 89.1 MCH 29.4 MCHC 33.0 RDW 14.8 Plt Count 277 MPV 9.4 Gran % Neut % (Auto) 85.5 Lymph % (Auto) 7.6 Bladen % (Auto) 4.6 Eos % (Auto) 1.3 Baso % (Auto) 0.2 Neut # (Auto) 15.35 H Lymph # (Auto) 1.4 Bladen # (Auto) 0.8 Eos # (Auto) 0.2 Baso # (Auto) 0.0 Absolute Gran (aut o) Nucleated RBC % (a uto) 0 Nucleated RBCs # 0.0 Sodium (136-145) mmol/L Potassium (3.5-5.1) mmol/L Chloride (98-107) mmol/L Carbon Dioxide (22-29) mmol/L Anion Gap (5-19) BUN (6-20) mg/dL Creatinine (0.5-0.9) mg/dL GFR Calculation (90-130) mL/min Glucose (65-115) mg/dL Calculated Osmolal ity (285-295) mOsm/k g Calcium (8.5-10.5) mg/dL Magnesium 2.0 (1.7-2.3) mg/dL Total Bilirubin (0.15-1.2) mg/dL AST (0-32) U/L ALT (0-33) U/L Alkaline Phosphata se (35-105) IU/L Total Protein (6.6-8.7) g/dL Albumin (3.5-5.2) g/dL Globulin (1.3-4.6) g/dL Lipase (13-60) U/L HCG, Qual (Negative) Urine Color Yellow (Yellow) Urine Appearance Sl hazy (CLEAR) Urine pH 5 (5-7) Ur Specific Gravit y 1.015 (1.005-1.030) Urine Protein Neg (Negative) Urine Glucose (UA) Norm (Normal) Urine Ketones Negative (Negative) Urine Blood Neg (Negative) Urine Nitrate Negative (Negative) Urine Bilirubin Neg (Negative) Urine Urobilinogen Neg (Negative) mg/dL Ur Leukocyte Rosalva ase Negative (Negative) Urine RBC None (0-2) /hpf Urine WBC 80-100 H (0-5) /hpf Ur Squamous Epith Cells 0-4 H (0-5) /hpf Amorphous Sediment Not Reportable Urine Bacteria 3+ H (NONE) /hpf Imaging Data ^: CT Abd/Pel: Radiologist's impression: [address] [address] [address] Scan Report Signed with Addenda Patient: Lorie Chacon Unit #: [id number] : 1980 Age/Sex: 39 / F ADM Date: 04/18/20 Loc: ER Room/Bed: Attending Dr: Ordering Provider/Ordering MD: Azar Valle DO Date of Service: 04/18/20 Procedure(s): CT abdomen pelvis w con* [id number] Accession Number(s): [id number] Report Number: [id number]/CT abdomen pelvis w con* [id number] Addendum: THIS REPORT CONTAINS FINDINGS THAT MAY BE CRITICAL TO PATIENT CARE. The findings were verbally communicated via telephone conference with Dr. Dumont at 7:03 PM CDT on 04/18/2020. The findings were acknowledged and understood. Radiation Dose CTDIVOL = (mGy): DLP = 2196.83 (mGy-cm) Addendum Dictated By: Nickolas Rivas Addendum Signed By: Nickolas Rivas Signed Date/Time: 04/18/20 190 4 Addendum Cosigned By: PROCEDURE INFORMATION: Exam: CT Abdomen And Pelvis With Contrast Exam date and time: 04/18/2020 6:20 PM Age: 39 years old Clinical indication: Abdominal pain; Localized; Right; Additional info: Abd pain TECHNIQUE: Imaging protocol: Computed tomography of the abdomen and pelvis with intravenous contrast. Radiation optimization: All CT scans at this facility use at least one of these dose optimization techniques: automated exposure control; mA and/or kV adjustment per patient size (includes targeted exams where dose is matched to clinical indication); or iterative reconstruction. Contrast material: OMNI 300; Contrast volume: 95 ml; Contrast route: INTRAVENOUS (IV); COMPARISON: US pelvic complete* [id number] 03/05/2020 9:33 PM RADIATION DOSE METRICS: Total DLP (mGy-cm): 2196.83 FINDINGS: Liver: There is a diffuse decrease in hepatic parenchymal density, consistent with moderate fatty infiltration. There is moderate enlargement of the liver. Liver measures 22 cm in height. Gallbladder and bile ducts: The gallbladder is normal. Pancreas: The pancreas is normal. Spleen: The spleen is normal. Adrenals: The adrenal glands are normal. Kidneys and ureters: The kidneys are normal. There is no evidence of hydronephrosis. There is no evidence of renal or ureteral calcifications. Stomach and bowel: There is no evidence of colitis/diverticulitis. Appendix: The appendix is thickened and there is inflammation in the periappendiceal fat. These findings are highly worrisome for acute appendicitis. Intraperitoneal space: Unremarkable. No free air. No significant fluid collection. Vasculature: Unremarkable. No abdominal aortic aneurysm. Lymph nodes: Unremarkable. No enlarged lymph nodes. Urinary bladder: Unremarkable as visualized. Reproductive: Unremarkable as visualized. Bones/joints: The lumbar spine demonstrates mild degenerative changes at multiple levels. There is mild scoliosis concave towards the right. Soft tissues: Unremarkable. CT/CT abdomen pelvis w con* [id number] IMPRESSION: 1. Hepatomegaly and fatty liver. 2. Acute appendicitis. Radiation Dose CTDIVOL = (mGy): DLP = 2196.83 (mGy-cm) Dictated By: Nickolas Rivas Signed By: Nickolas Rivas Signed Date/Time: 04/18/201853 DD/ 52 Discharge Plan Discharge Patient Disposition: Placed in Observation Admit Provider: Gregorio Berry Clinical Impression: Acute appendicitis Condition: Stable Referrals: Gregorio Berry MD [Physician] - 05/02/20 3:00 pm Enriqueta Mann DO [Primary Care Provider] - 04/28/20 1:15 pm Discharge Diet: Advance as tolerated Patient Instructions: Hydrocodone/Acetaminophen (By mouth), Laxative, Stool Softeners (By mouth), Ondansetron (By mouth), Laparoscopic Appendectomy in Children (DC) Additional Instructions: 1. Up and walking as tolerated. 2. Ok to shower in 48 hours after surgery. 3. Remove Dermabond dressing in 7-10 days. 4. Do not lift more than 10 pounds. 5. Do not operate heavy machinery or drive while using pain medications. 6. Advised to return to ER or contact my office if there are any signs of infection like, increasing pain, fevers, chills, redness or drainage of pus. Discharge Date/Time: 04/18/20 20:04 Sign Out Sign Out Data: Patient Sign Out occurred on 04/18/20 at 18:36. Patient's care was discussed, and care was transferred from to Salome Dumont. Coding Level of Care Code ED Equipment Monitor Phototypesetting for Milagro Lao
--- NOTE | 2020-04-18 17:07 | CTR_ITS ---
PROCEDURE INFORMATION: Exam: CT Abdomen And Pelvis With Contrast Exam date and time: 04/18/2020 6:20 PM Age: 39 years old Clinical indication: Abdominal pain; Localized; Right; Additional info: Abd pain TECHNIQUE: Imaging protocol: Computed tomography of the abdomen and pelvis with intravenous contrast. Radiation optimization: All CT scans at this facility use at least one of these dose optimization techniques: automated exposure control; mA and/or kV adjustment per patient size (includes targeted exams where dose is matched to clinical indication); or iterative reconstruction. Contrast material: OMNI 300; Contrast volume: 95 ml; Contrast route: INTRAVENOUS (IV); COMPARISON: US pelvic complete* [id number] 03/05/2020 9:33 PM RADIATION DOSE METRICS: Total DLP (mGy-cm): 2196.83 FINDINGS: Liver: There is a diffuse decrease in hepatic parenchymal density, consistent with moderate fatty infiltration. There is moderate enlargement of the liver. Liver measures 22 cm in height. Gallbladder and bile ducts: The gallbladder is normal. Pancreas: The pancreas is normal. Spleen: The spleen is normal. Adrenals: The adrenal glands are normal. Kidneys and ureters: The kidneys are normal. There is no evidence of hydronephrosis. There is no evidence of renal or ureteral calcifications. Stomach and bowel: There is no evidence of colitis/diverticulitis. Appendix: The appendix is thickened and there is inflammation in the periappendiceal fat. These findings are highly worrisome for acute appendicitis. Intraperitoneal space: Unremarkable. No free air. No significant fluid collection. Vasculature: Unremarkable. No abdominal aortic aneurysm. Lymph nodes: Unremarkable. No enlarged lymph nodes. Urinary bladder: Unremarkable as visualized. Reproductive: Unremarkable as visualized. Bones/joints: The lumbar spine demonstrates mild degenerative changes at multiple levels. There is mild scoliosis concave towards the right. Soft tissues: Unremarkable. CT/CT abdomen pelvis w con* [id number] IMPRESSION: 1. Hepatomegaly and fatty liver. 2. Acute appendicitis. Radiation Dose CTDIVOL = (mGy): DLP = 2196.83 (mGy-cm)
[2020-04-18 17:09] LABS: Alanine Aminotransferase 44 U/L (0-33); Albumin Level 3.3 g/dL (3.5-5.2); Alkaline Phosphatase 72 IU/L (35-105); Aspartate Amino Transferase 29 U/L (0-32); Blood Urea Nitrogen 24 mg/dL (6-20); Calcium 9.4 mg/dL (8.5-10.5); Carbon Dioxide 21 mmol/L (22-29); Chloride 96 mmol/L (98-107); Globulin 4.1 g/dL (1.3-4.6); Glomerular Filtration Rate 45.8 mL/min (90-130); Glucose 187 mg/dL (65-115); Lipase 15 U/L (13-60); Osmolality Calculated 285 mOsm/kg (285-295); Sodium 133 mmol/L (136-145); Total Bilirubin 0.4 mg/dL (0.15-1.2); Total Protein 7.4 g/dL (6.6-8.7)
[2020-04-18 17:17] LABS: HCG, Serum Qual Negative (Negative)
[2020-04-18 17:19] LABS: Anion Gap 19.1 (5-19); Potassium 3.1 mmol/L (3.5-5.1)
[2020-04-18] MEDS: ondansetron 2 mg/ML SDV 2 mL 4 MG IVP (17:37)
[2020-04-18] MEDS: sodium chloride 0.9% 1,000 ML 999 ML IV (17:37)
[2020-04-18] MEDS: morphine 4 mg/mL SDV 1 mL IVP ×2 (17:38→20:55)
[2020-04-18 17:39] LABS: Basophils % 0.2 %; Eosinophils # 0.2 10^3/uL (0.0-0.8); Eosinophils % 1.3 %; Hematocrit 31.8 % (37.0-47.0); Hemoglobin 10.5 g/dL (11.5-15.3); Lymphocytes # 1.4 10^3/uL (0.8-4.8); Lymphocytes % 7.6 %; Mean Corpuscular Hemoglobin 29.4 pg (28.0-34.0); Mean Corpuscular Volume 89.1 fL (81-99); Mean Platelet Volume 9.4 fL (7.4-10.4); Monocytes # 0.8 10^3/uL (0.2-0.9); Monocytes % 4.6 %; Neutrophils # 15.35 10^3/uL (1.8-7.7); Neutrophils % 85.5 %; Nucleated Red Blood Cells % 0 %; Platelet Count 277 10^3/cmm (130-400); Red Blood Count 3.57 10^6/uL (4.1-5.3); Red Cell Distribution Width 14.8 % (12.1-15.1)
[2020-04-18] MEDS: iohexol 300 mg/mL 100 mL Btl IV (18:24)
--- NOTE | 2020-04-18 19:00 | PC.NURSE ---
report received from XAVI Hartman and care transferred to XAVI Moran
[2020-04-18 19:06] LABS: Add Urine Microscopic? YES; Bilirubin Urine Neg (Negative); Blood Urine Neg (Negative); Glucose Urine UA Norm (Normal); Ketones Urine Negative (Negative); Leukocyte Esterase Urine Negative (Negative); Nitrate Urine Negative (Negative); Protein Urine Neg (Negative); Specific Gravity, Urine 1.015 (1.005-1.030); Urine Appearance SL Hazy (CLEAR); Urine Color Yellow (Yellow); Urobilinogen Urine Neg (Negative); pH Urine 5 (5-7)
[2020-04-18 19:07] LABS: Add Urine Culture? Yes; Bacteria Urine 3+ /hpf; Squamous Epithelial Cell Urine 0-4 /hpf (0-5); WBC Urine 80-100 /hpf (0-5)
[2020-04-18] MEDS: piperacillin-tazobactam 3.375 GM in sodium chloride 0.9% (plus) 50 ML IV (19:11)
--- NOTE | 2020-04-18 20:17 | PM.CONSULT ---
Providers/Reason For Consult Consulting Physican/Specialty*: Low, hospitalist Reason for Consult*: Diabetes management, other medical management Requesting Yola Berry Attending Physician: Gregorio Berry MD Primary Care Provider: Enriqueta Mann DO History of Present Illness History of Present Illness Lorie Chacon is a 39 year old female who identifies as male and prefers to be called Saul who presented to the emergency room with chief complaint of abdominal pain. Symptoms began on Friday. He had some pain in his lower quadrants that at first he thought was like menstrual cramps. He has been evaluated for abnormal uterine bleeding going on for quite a few months. He had a endometrial biopsy last week. He did not describe any symptoms after that. What he thought were menstrual cramps evolved to being right lower quadrant pain that was constant in nature. It was worse with movement. He had some nausea and one episode of vomiting yesterday. He has had some loose stools x2 days. At its worst the pain is up to a 9 out of 10. If he is not moving at all it is more achy in nature than sharp and severe but never goes away completely. He is not had much of an appetite. He tried to eat some eggs and toast this morning but only took a bite or 2 of each of them. He ate half a bowl of spaghetti yesterday. He has had chills but unsure if he has had any fevers. Pain has been radiating into his back and suprapubic area. Work-up in the emergency room ended up including a CT of the abdomen and pelvis. This revealed inflammatory changes at the appendix along with periappendiceal inflammation consistent with acute appendicitis. He had a white count of 18,000. He has been admitted to Dr. Berry service and hospitalist have been consulted for management of diabetes and other medical problems as outlined below. Saul has been scheduled for D&C next Friday by Dr. Fox. Review of Systems Const: Reports: chills and change in appetite (decreased); Denies: fever(s) Eyes: Denies: change in vision ENMT: Reports: other (No change in taste or smell); Denies: throat pain, dry mouth or nasal congestion Card: Denies: chest pain, palpitations or edema Resp: Reports: wheezing (Uses albuterol inhaler every day at least once); Denies: dyspnea, productive cough or non-productive cough GI: Reports: abdominal pain, nausea, vomiting and diarrhea; Denies: constipation : Denies: difficulty voiding Musc: Reports: back pain (Chronic) Skin/Breast: Reports: sores (On back and stomach); Denies: rash or pruritus Neuro: Denies: headache(s), numbness in extremities, weakness in extremities or dizziness Psych: Reports: anxiety, depression and other (Binge eating has been difficult to control lately); Denies: hopelessness Amilcar/Lymph: Denies: easy bruising or easy bleeding Meds/Allergies Home Medications and Allergies Home Medications Medication Instructions Recorded Confirmed Last Taken Type levothyroxine 50 mcg capsule 50 mcg PO DAILY 30 Days #30 cap 11/26/19 04/18/20 04/18/20 Rx acetaminophen [Tylenol] 325 mg PO PRN 12/16/19 04/18/20 04/18/20 History montelukast 10 mg tablet 10 mg PO DAILY #90 tab 02/14/20 04/18/20 04/18/20 Rx chlorthalidone 25 mg tablet 25 mg PO DAILY #30 tab 02/22/20 04/18/20 04/18/20 Rx liraglutide 0.6 mg/0.1 mL (18 mg/3 0.6 mg SUBCUT DAILY #6 ml 02/22/20 04/18/20 04/17/20 Rx mL) subcutaneous pen injector metformin 1,000 mg tablet 1,000 mg PO BID #60 tab 02/22/20 04/18/20 04/18/20 Rx tizanidine 6 mg capsule 6 mg PO .Q4-6H PRN 30 Days #90 cap 02/23/20 04/18/20 04/17/20 Rx lisinopril 20 mg tablet 20 mg PO DAILY #30 tab 03/02/20 04/18/20 04/18/20 Rx naproxen 500 mg tablet 500 mg PO Q12H 30 Days #60 tab 03/15/20 04/18/20 04/18/20 Rx oxybutynin chloride 5 mg tablet 5 mg PO BID #60 tab 03/21/20 04/18/20 04/18/20 Rx albuterol sulfate 90 mcg/actuation 2 puff INHALATION QID PRN #8.5 gm 0904/18/20 04/18/20 Rx aerosol inhaler blood sugar diagnostic #100 each 03/23/20 04/18/20 Unknown Rx blood-glucose meter #1 each 03/23/20 04/18/20 Unknown Rx paroxetine HCl 20 mg tablet 20 mg PO QAM #90 tab 03/23/20 04/18/20 04/18/20 Rx paroxetine HCl 40 mg tablet 40 mg PO QAM #90 tab 03/23/20 04/18/20 04/18/20 Rx quetiapine 50 mg tablet 50 mg PO BID PRN #180 tab 03/23/20 04/18/20 04/17/20 Rx trazodone 300 mg tablet 300 mg PO BEDTIME #90 tab 03/23/20 04/18/20 04/17/20 Rx lancets #100 each 03/31/20 04/18/20 Unknown Rx gabapentin 600 mg tablet 1,200 mg PO TID 30 Days #180 tab 04/05/20 04/18/20 04/18/20 Rx Allergies Allergy/AdvReac Type Severity Reaction Status Date / Time No Known Allergies Allergy Verified 04/18/20 17:43 PFSH Acute PFSH: Medical History (Updated 04/18/20 @ 22:35 by Tessa Kelsey MD) Asthma Benign essential HTN Bilateral primary osteoarthritis of knee Binge eating disorder DDD (degenerative disc disease) Fatty infiltration of liver Gender dysphoria Hypothyroidism Intervertebral disc disorders with radiculopathy, lumbar region Major depressive disorder, recurrent severe without psychotic features Morbid (severe) obesity due to excess calories Nicotine dependence, cigarettes, uncomplicated Panic disorder without agoraphobia Personal history of self-harm Uncontrolled type 2 diabetes mellitus, without long-term current use of insulin Surgical History History of endometrial biopsy (04/13/20) benign endocervical epithelium Hx of foot surgery Family History (Updated 04/18/20 @ 21:17 by Tessa Kelsey MD) Mother Diabetes Other Heart disease Social History (Updated 04/18/20 @ 21:22 by Tessa Kelsey MD) Smoking and tobacco status: current some day smoker cigarettes Packs smoked per day: 0.5 Years cigarettes smoked: 20 Quit status (tobacco): not considering quitting Second hand smoke exposure: No Alcohol intake: current Alcohol intake frequency: holidays/special occasions only Alcohol type: beer and hard liquor Substance/Drug Use: current Substance/Drug use frequency: few times a month Substance/Drug use type: Marijuana Other substance/drug use details: Occasional marijuana Household members: other Details: partner and her mom History of recent travel: No Current gender identity: Male and Other Gender Identity Comment: Goes by Saul, considering formal transition Female Reproductive History: Other female reproductive history: off/on bleeding since Aug 2019, not sure when actual last menstrual cycle was Vitals/I&O/Wt Last Vital Signs Temp 97.1 F L 04/18/20 16:23 Pulse 101 H 04/18/20 19:57 Resp 18 04/18/20 19:57 BP 146/85 04/18/20 19:57 Pulse Ox 96 04/18/20 19:57 Weight last 48 hrs Weight 187.334 kg Physical Exam Const: OTHER: Alert, oriented x3, cooperative, looks uncomfortable HENMT: OTHER: Normocephalic atraumatic, slightly dry mucous membranes, nasopharynx is clear Eye: OTHER: Pupils equally round and reactive to light Neck/C-Spine: OTHER: Supple, large Resp: OTHER: Clear to auscultation bilaterally, no rales, rhonchi or wheezes noted, no accessory muscle use noted Cardio: OTHER: Regular rate and rhythm, no murmurs gallops or rubs. Heart sounds are distant. Pulses equal throughout. GI: OTHER: Abdomen soft, tender throughout most prominent in the right lower quadrant and lower midline area. Abdomen is obese but not distended. Does appear to have some rebound but no guarding. : OTHER: Normal external genitalia Extremity: NARRATIVE EXTREMITY EXAM: No cyanosis, 1+ pitting edema more distally, no clubbing Neuro: OTHER: Face symmetric, speech clear, moves all extremities, no tremors Psych: OTHER: Normal affect after we talked a bit Skin: OTHER: Approximately 2-1/2 x 1/2 cm ulceration to the lower back in the midline. More approximately it looks like it has been opened in the past but is slowly closing. There is granulation tissue and some dried blood around the edges but no active drainage, no foul odor, a small rim of surrounding erythema but no streaks beyond this, no fluctuance or expressible purulent material. Patient has 2 scabbed over wounds to the abdominal wall on the left lower quadrant. Both look like small car that are healing. They are erythematous in the immediate vicinity but no extension beyond the sores themselves Data Labs: Other Labs: [facility] 04/18/20 16:40 Sodium 133 L Potassium 3.1 L Chloride 96 L Carbon Dioxide 21 L BUN 24 H Creatinine 1.3 H Glucose 187 H Calcium 9.4 Liver Function 04/18/20 Range/Units 16:40 Total Bilirubin 0.4 (0.15-1.2) mg/dL AST 29 (0-32) U/L ALT 44 H (0-33) U/L Alkaline Phosphata se 72 (35-105) IU/L Albumin 3.3 L (3.5-5.2) g/dL Urine 04/18/20 Range/Units 18:48 Urine Color Yellow (Yellow) Urine Appearance Sl hazy (CLEAR) Urine pH 5 (5-7) Ur Specific Gravit y 1.015 (1.005-1.030) Urine Protein Neg (Negative) Urine Glucose (UA) Norm (Normal) Laboratory Tests 04/18/20 04/18/20 04/18/20 16:40 16:40 17:35 Neut # (Auto) 15.35 H ALT 44 H Albumin 3.3 L Lipase 15 HCG, Qual Negative Imaging^: CT Abd/Pel: Radiologist's impression: FINDINGS: Liver: There is a diffuse decrease in hepatic parenchymal density, consistent with moderate fatty infiltration. There is moderate enlargement of the liver. Liver measures 22 cm in height. Gallbladder and bile ducts: The gallbladder is normal. Pancreas: The pancreas is normal. Spleen: The spleen is normal. Adrenals: The adrenal glands are normal. Kidneys and ureters: The kidneys are normal. There is no evidence of hydronephrosis. There is no evidence of renal or ureteral calcifications. Stomach and bowel: There is no evidence of colitis/diverticulitis. Appendix: The appendix is thickened and there is inflammation in the periappendiceal fat. These findings are highly worrisome for acute appendicitis. Intraperitoneal space: Unremarkable. No free air. No significant fluid collection. Vasculature: Unremarkable. No abdominal aortic aneurysm. Lymph nodes: Unremarkable. No enlarged lymph nodes. Urinary bladder: Unremarkable as visualized. Reproductive: Unremarkable as visualized. Bones/joints: The lumbar spine demonstrates mild degenerative changes at multiple levels. There is mild scoliosis concave towards the right. Soft tissues: Unremarkable. CT/CT abdomen pelvis w con* [id number] IMPRESSION: 1. Hepatomegaly and fatty liver. 2. Acute appendicitis. A&P Assessment and plan (1) Acute appendicitis: noted on CT imaging, wbc 18, presentation consistent with such Status: Acute Qualifiers: Acute appendicitis type: unspecified acute appendicitis type Qualified Code(s): K35.80 - Unspecified acute appendicitis (2) Acute kidney injury: Chronically on chlorthalidone, lisinopril, naproxen. Creatinine in December 2019 0.6. Elevated to 1.2-1.3 since then. May be secondary to medications or developing CKD related to diabetes and hypertension. Probable component acutely of dehydration. Has associated hypokalemia. Status: Acute (3) Pyuria: Without symptoms of urinary tract infection currently Status: Acute (4) Anemia: Being followed outpt for abnormal vaginal bleeding. Had benign endometrial biopsy last week. Last hgb was in normal limits at 14.6 in February. Denies significant increase in vaginal bleeding recently, in particular after endometrial biopsy last week. Status: Acute Qualifiers: Anemia type: unspecified type Qualified Code(s): D64.9 - Anemia, unspecified (5) Ulcer of back: Not sure where originated but states that it is a little bit better than it had been. Denies trauma or procedure. In addition to this has 2 smaller sores/ulcers on her abdominal wall. Status: Acute (6) Uncontrolled type 2 diabetes mellitus, without long-term current use of insulin: Chronically on Victoza and metformin Status: Chronic (7) Benign essential HTN: Chronically on lisinopril and chlorthalidone Status: Chronic (8) Abnormal uterine bleeding (AUB): Currently followed by Dr. Fox with plan for D&C next week Status: Chronic (9) Asthma: By her description would be moderate persistent asthma although I am sure there is probably a component of COPD given tobacco use. Uses her inhaler at least once a day if not more frequently Status: Chronic Qualifiers: Asthma complication type: uncomplicated Asthma persistence: persistent Asthma severity: moderate Qualified Code(s): J45.40 - Moderate persistent asthma, uncomplicated (10) Hypothyroidism: On chronic levothyroxine Status: Chronic Qualifiers: Hypothyroidism type: acquired Qualified Code(s): E03.9 - Hypothyroidism, unspecified (11) Urinary incontinence: On chronic oxybutynin Status: Acute Qualifiers: Urinary Incontinence type: urge incontinence Qualified Code(s): N39.41 - Urge incontinence (12) Fatty infiltration of liver: Status: Chronic (13) Morbid obesity with BMI of 50.0-59.9, adult: Status: Chronic (14) Nicotine dependence, cigarettes, uncomplicated: Status: Chronic Additional A&P Information Currently recommending holding chlorthalidone, lisinopril and naproxen IV fluids overnight Repeat electrolytes in the morning Monitor blood pressures for need to intervene Replace potassium, check magnesium Zosyn which was started for appendicitis will cover for possibility of urinary tract infection although I think patient simply has.. He does not currently describe symptoms to go along with UTI. Monitor for any signs of bleeding and further drop in hemoglobin, check INR given history of fatty liver disease Wound care to ulceration on back, may benefit from evaluation by wound care provider during hospital stay should they be available Sliding scale insulin currently for diabetes control, discussed with the patient that he will need to hold metformin for [address] imaging, both metformin and Victoza are currently held Continue home levothyroxine Currently scheduled for D&C and believe next week on Friday by Dr. Fox for abnormal uterine bleeding which is been going on for some time. Continue home albuterol and Singulair, monitor for need for additional respiratory therapy With current BMI at risk for respiratory compromise perioperatively. Sounds like he may have obstructive sleep apnea from some discussion but has never been formally tested so we will need to watch for apnea. Patient denies any history of anesthesia complications, bleeding disorder, known family problems with anesthesia. He has not had any coronary artery disease, stroke. None medical issues are indicated. He had questions about surgery which I answered to the best of my ability and informed him that both surgery and anesthesia should surgery be required will also speak with him Nicotine patch if needed SCDs for DVT prophylaxis currently, no pharmacological prophylaxis secondary to potential surgical intervention Continue usual home medications for insomnia, anxiety and pain to include trazodone, Seroquel, Zanaflex, gabapentin Continue home oxybutynin Supportive care otherwise Anticipate Saul going home with his partner at discharge Full code Consult Attestations Medical Necessity Statement: Currently admitted for less than 2 midnight stay for acute appendicitis to surgery service Coding Level of Care Code 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 Diagnoses Acute appendicitis K35.80 Acute appendicitis type: unspecified acute appendicitis type Acute kidney injury N17.9 Pyuria R82.81 Anemia D64.9 Anemia type: unspecified type Ulcer of back L98.429 Uncontrolled type 2 diabetes mellitus, without long-term current use of insulin E11.65 Benign essential HTN I10 Abnormal uterine bleeding (AUB) N93.9 Asthma J45.40 Asthma complication type: uncomplicated Asthma persistence: persistent Asthma severity: moderate Hypothyroidism E03.9 Hypothyroidism type: acquired Urinary incontinence N39.41 Urinary Incontinence type: urge incontinence Fatty infiltration of liver K76.0 Morbid obesity with BMI of 50.0-59.9, adult E66.01; Z68.43 Nicotine dependence, cigarettes, uncomplicated F17.210
[2020-04-18] MEDS: potassium chloride ER 10 mEq Tablet 40 MEQ PO (20:55)
[2020-04-18] MEDS: sodium chloride 0.9% 1,000 ML 150 ML IV (20:55)
[2020-04-18] MEDS: neomycin-poly-bacitracin oint 28 gm 1 APPLIC TOPICAL (23:04)
[2020-04-18] MEDS: trazodone 150 mg Tablet 300 MG PO (23:05)
[2020-04-18] MEDS: sodium chlor 0.9% + KCl 20 mEq 20 MEQ/1,000 ML BAG 150 MEQ IV (23:05)
[2020-04-18 23:22] LABS: Glucose Point of Care 122 mg/dL (70-110)
[2020-04-19] VITALS (18 sets, daily range): BP systolic 120–174; BP diastolic 74–95; PULSE 9–105; RESP 13–22; TEMP 36.3–36.9; O2SAT 91–99
[2020-04-19 03:10] LABS: Basophils % 0.1 %; Eosinophils # 0.2 10^3/uL (0.0-0.8); Eosinophils % 1.6 %; Hematocrit 29.6 % (37.0-47.0); Hemoglobin 9.5 g/dL (11.5-15.3); Lymphocytes # 1.5 10^3/uL (0.8-4.8); Lymphocytes % 10.3 %; Mean Corpuscular HGB Conc 32.1 g/dL (30.0-36.0); Mean Corpuscular Hemoglobin 29.2 pg (28.0-34.0); Mean Corpuscular Volume 91.1 fL (81-99); Mean Platelet Volume 9.8 fL (7.4-10.4); Monocytes # 0.7 10^3/uL (0.2-0.9); Monocytes % 4.9 %; Neutrophils # 12.18 10^3/uL (1.8-7.7); Neutrophils % 82.6 %; Nucleated Red Blood Cells % 0 %; Platelet Count 259 10^3/cmm (130-400); Red Blood Count 3.25 10^6/uL (4.1-5.3); Red Cell Distribution Width 15.1 % (12.1-15.1); White Blood Count 14.8 10^3/uL (4.0-10.0)
[2020-04-19] MEDS: piperacillin-tazobactam 3.375 GM in sodium chloride 0.9% (plus) 50 ML IV ×2 (03:15→07:18)
[2020-04-19] MEDS: HYDROmorphone 1 mg/mL INJ 1 mL IVP (03:15)
[2020-04-19 03:39] LABS: Anion Gap 15.1 (5-19); Blood Urea Nitrogen 18 mg/dL (6-20); Calcium 8.8 mg/dL (8.5-10.5); Carbon Dioxide 27 mmol/L (22-29); Chloride 99 mmol/L (98-107); Glomerular Filtration Rate 45.8 mL/min (90-130); Glucose 163 mg/dL (65-115); Magnesium 1.8 mg/dL (1.7-2.3); Osmolality Calculated 291 mOsm/kg (285-295); Phosphorus 2.6 mg/dL (2.5-4.5); Potassium 3.1 mmol/L (3.5-5.1); Sodium 138 mmol/L (136-145)
[2020-04-19 03:45] LABS: Estmated Average Glucose 197; Hemoglobin A1C 8.5 % (4.0-6.0)
--- NOTE | 2020-04-19 04:00 | ECG_ITS ---
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 Measurements Intervals [place] Rate: 93 P: 63 UT: 202 QRS: 65 QRSD: 98 T: 25 QT: 358 QTc: 446 Interpretive Statements SINUS RHYTHM NONSPECIFIC T-WAVE ABNORMALITY No previous ECG available for comparison Electronically Signed On 04-19-2020 18:37:19 CDT by Ian Kahn M.D. [id number]
--- NOTE | 2020-04-19 06:50 | ANES.PREANE2 ---
Pre-Anesthetic Assessment Pre-Anesthetic Assessment: Height/Weight: Height 1.83 m Weight 187.334 kg Temp Pulse Resp BP Pulse Ox 98.4 F 71 16 174/74 92 04/19/20 04:00 04/19/20 05:14 04/19/20 05:14 04/19/20 04:00 04/19/20 05:14 Preop Diagnosis: Appendicitis Proposed Procedure: Operation Date: 04/19/20 07:20 Proposed Procedures p Laparoscopic Appendectomy(Right) - Gregorio Berry MD Familial anesthetic complications: none Last intake: Intake Last Liquid Date 04/18/20 Last Liquid Time 11:55 Last Solid Date 04/18/20 Last Solid Time 15:00 Social: Social History: Tobacco Exam: Pre-Anes Outpt Exam: alert, oriented x 3, clear to auscultation bilaterally and regular rate & rhythm Airway: Cervical ROM: WNL MP: 1 Dentition: Other (edentulous) Pulmonary: Pulmonary: Asthma CV/HEM: CV/HEM: HTN : Comments: my kidneys aren't great Metabolic: Metabolic: DM, Hyperlipidemia, Morbid obesity and Thyroid Musc/skel: Musc/skel: Lower Back Pain Neuropsych: Neuropsych: None reported Anesthetic Plan: ASA status: 2 Anesthesia: General Risk of > 500 ml blood loss (7ml/kg in children): No Meds/Allergies Current Medications: Current Medications Generic Name Dose Route Start Last Admin Trade Name Freq PRN Reason Stop Dose Admin Hydromorphone HCl 1 mg 04/18/20 22:22 04/19/20 03:15 Dilaudid Inj IVP 1 mg Q4H PRN Administration SEVERE PAIN Piperacillin Sod/T azobactam 50 mls @ 12.5 mls /hr 04/19/20 03:00 04/19/20 03:15 Sod 3.375 gm/ So dium Chloride IV 12.5 mls/hr Q8H IZZY Administration Protocol Potassium Chloride /Sodium Chloride 20 meq in 1,000 m ls @ 150 mls/hr 04/18/20 22:30 04/19/20 06:39 Sodium Chlor 0.9 % + Kcl 20 Meq IV Infused .Q6H40M IZZY Infusion Paroxetine HCl 60 mg 04/19/20 06:00 04/19/20 05:55 Paxil PO Not Given QAM IZZY Trazodone HCl 300 mg 04/18/20 22:45 04/18/20 23:05 Desyrel PO 300 mg BEDTIME IZZY Administration PFSH Anesthesia PFSH: Medical History (Updated 04/18/20 @ 22:35 by Tessa Kelsey MD) Asthma Benign essential HTN Bilateral primary osteoarthritis of knee Binge eating disorder DDD (degenerative disc disease) Fatty infiltration of liver Gender dysphoria Hypothyroidism Intervertebral disc disorders with radiculopathy, lumbar region Major depressive disorder, recurrent severe without psychotic features Morbid (severe) obesity due to excess calories Nicotine dependence, cigarettes, uncomplicated Panic disorder without agoraphobia Personal history of self-harm Uncontrolled type 2 diabetes mellitus, without long-term current use of insulin Surgical History History of endometrial biopsy (04/13/20) benign endocervical epithelium Hx of foot surgery Family History (Updated 04/18/20 @ 21:17 by Tessa Kelsey MD) Mother Diabetes Other Heart disease Social History (Updated 04/18/20 @ 21:22 by Tessa Kelsey MD) Smoking and tobacco status: current some day smoker cigarettes Packs smoked per day: 0.5 Years cigarettes smoked: 20 Quit status (tobacco): not considering quitting Second hand smoke exposure: No Alcohol intake: current Alcohol intake frequency: holidays/special occasions only Alcohol type: beer and hard liquor Substance/Drug Use: current Substance/Drug use frequency: few times a month Substance/Drug use type: Marijuana Other substance/drug use details: Occasional marijuana Household members: other Details: partner and her mom History of recent travel: No Current gender identity: Male and Other Gender Identity Comment: Goes by Saul, considering formal transition Data Anesthesia CBC & Chem 7: 04/19/20 03:00 04/19/20 03:00 Other Labs: Laboratory Results - last 48 hr 04/18/20 04/18/20 04/18/20 16:40 16:40 16:40 WBC Cancelled Corrected WBC Cancelled RBC Cancelled Hgb Cancelled Hct Cancelled MCV Cancelled MCH Cancelled MCHC Cancelled RDW Cancelled Plt Count Cancelled MPV Cancelled Gran % Cancelled Neut % (Auto) Cancelled Lymph % (Auto) Cancelled [place] % (Auto) Cancelled Eos % (Auto) Cancelled Baso % (Auto) Cancelled Neut # (Auto) Cancelled Lymph # (Auto) Cancelled [place] # (Auto) Cancelled Eos # (Auto) Cancelled Baso # (Auto) Cancelled Absolute Gran (auto) Cancelled Nucleated RBC % (auto) Cancelled Nucleated RBCs # Cancelled PT INR Sodium 133 L Potassium 3.1 L Chloride 96 L Carbon Dioxide 21 L Anion Gap 19.1 H BUN 24 H Creatinine 1.3 H GFR Calculation 45.8 L Glucose 187 H POC Glucose Estimat Average Glucose Hemoglobin A1c Calculated Osmolality 285 Calcium 9.4 Phosphorus Magnesium Total Bilirubin 0.4 AST 29 ALT 44 H Alkaline Phosphatase 72 Total Protein 7.4 Albumin 3.3 L Globulin 4.1 Lipase 15 HCG, Qual Negative Urine Color Urine Appearance Urine pH Ur Specific [place] Urine Protein Urine Glucose (UA) Urine Ketones Urine Blood Urine Nitrate Urine Bilirubin Urine Urobilinogen Ur Leukocyte Esterase Urine RBC Urine WBC Ur Squamous Epith Cells Amorphous Sediment Urine Bacteria 04/18/20 04/18/20 04/18/20 16:40 17:35 18:48 WBC 18.0 H Corrected WBC RBC 3.57 L Hgb 10.5 L Hct 31.8 L MCV 89.1 MCH 29.4 MCHC 33.0 RDW 14.8 Plt Count 277 MPV 9.4 Gran % Neut % (Auto) 85.5 Lymph % (Auto) 7.6 [place] % (Auto) 4.6 Eos % (Auto) 1.3 Baso % (Auto) 0.2 Neut # (Auto) 15.35 H Lymph # (Auto) 1.4 [place] # (Auto) 0.8 Eos # (Auto) 0.2 Baso # (Auto) 0.0 Absolute Gran (auto) Nucleated RBC % (auto) 0 Nucleated RBCs # 0.0 PT INR Sodium Potassium Chloride Carbon Dioxide Anion Gap BUN Creatinine GFR Calculation Glucose POC Glucose Estimat Average Glucose Hemoglobin A1c Calculated Osmolality Calcium Phosphorus Magnesium 2.0 Total Bilirubin AST ALT Alkaline Phosphatase Total Protein Albumin Globulin Lipase HCG, Qual Urine Color Yellow Urine Appearance Sl hazy Urine pH 5 Ur Specific [place] 1.015 Urine Protein Neg Urine Glucose (UA) Norm Urine Ketones Negative Urine Blood Neg Urine Nitrate Negative Urine Bilirubin Neg Urine Urobilinogen Neg Ur Leukocyte Esterase Negative Urine RBC None Urine WBC 80-100 H Ur Squamous Epith Cells 0-4 H Amorphous Sediment Not Reportable Urine Bacteria 3+ H 04/18/20 04/19/20 04/19/20 22:56 03:00 03:00 WBC 14.8 H Corrected WBC RBC 3.25 L Hgb 9.5 L Hct 29.6 L MCV 91.1 MCH 29.2 MCHC 32.1 RDW 15.1 Plt Count 259 MPV 9.8 Gran % Neut % (Auto) 82.6 Lymph % (Auto) 10.3 [place] % (Auto) 4.9 Eos % (Auto) 1.6 Baso % (Auto) 0.1 Neut # (Auto) 12.18 H Lymph # (Auto) 1.5 [place] # (Auto) 0.7 Eos # (Auto) 0.2 Baso # (Auto) 0.0 Absolute Gran (auto) Nucleated RBC % (auto) 0 Nucleated RBCs # 0.0 PT INR Sodium 138 Potassium 3.1 L Chloride 99 Carbon Dioxide 27 Anion Gap 15.1 BUN 18 Creatinine 1.3 H GFR Calculation 45.8 L Glucose 163 H POC Glucose 122 Estimat Average Glucose Hemoglobin A1c Calculated Osmolality 291 Calcium 8.8 Phosphorus Magnesium Total Bilirubin AST ALT Alkaline Phosphatase Total Protein Albumin Globulin Lipase HCG, Qual Urine Color Urine Appearance Urine pH Ur Specific [place] Urine Protein Urine Glucose (UA) Urine Ketones Urine Blood Urine Nitrate Urine Bilirubin Urine Urobilinogen Ur Leukocyte Esterase Urine RBC Urine WBC Ur Squamous Epith Cells Amorphous Sediment Urine Bacteria 04/19/20 04/19/20 04/19/20 03:00 03:00 03:00 WBC Corrected WBC RBC Hgb Hct MCV MCH MCHC RDW Plt Count MPV Gran % Neut % (Auto) Lymph % (Auto) [place] % (Auto) Eos % (Auto) Baso % (Auto) Neut # (Auto) Lymph # (Auto) [place] # (Auto) Eos # (Auto) Baso # (Auto) Absolute Gran (auto) Nucleated RBC % (auto) Nucleated RBCs # PT 14.60 INR 1.10 Sodium Potassium Chloride Carbon Dioxide Anion Gap BUN Creatinine GFR Calculation Glucose POC Glucose Estimat Average Glucose 197 Hemoglobin A1c 8.5 H Calculated Osmolality Calcium Phosphorus 2.6 Magnesium 1.8 Total Bilirubin AST ALT Alkaline Phosphatase Total Protein Albumin Globulin Lipase HCG, Qual Urine Color Urine Appearance Urine pH Ur Specific [place] Urine Protein Urine Glucose (UA) Urine Ketones Urine Blood Urine Nitrate Urine Bilirubin Urine Urobilinogen Ur Leukocyte Esterase Urine RBC Urine WBC Ur Squamous Epith Cells Amorphous Sediment Urine Bacteria Cardiac Studies: No Data to Display
--- NOTE | 2020-04-19 06:55 | P.HP_ITS ---
Providers/Chief Complaint Admitting Physician: Gregorio Berry MD Primary Care Provider: Enriqueta Mann DO Chief Complaint: ABDOMINAL PAIN History of Present Illness Lorie Chacon is a 39 year old female who presented to the ER yesterday with abdominal pain after a large duration. Patient states that she woke up yesterday morning with right lower quadrant pain which is sharp, constant, did not radiate, no aggravating or relieving factors. This was associate with nausea and multiple episodes of vomiting. Patient also had some loose stools but denies any history of constipation. No similar episodes in the past. Denies any fevers or chills. Review of Systems General: Reports: 10 or more systems reviewed and unremarkable except in HPI and below Medications/Allergies Home Medications Medication Instructions Recorded Confirmed Last Taken Type levothyroxine 50 mcg capsule 50 mcg PO DAILY 30 Days #30 cap 11/26/19 04/18/20 04/18/20 Rx acetaminophen [Tylenol] 325 mg PO PRN 12/16/19 04/18/20 04/18/20 History montelukast 10 mg tablet 10 mg PO DAILY #90 tab 02/14/20 04/18/20 04/18/20 Rx chlorthalidone 25 mg tablet 25 mg PO DAILY #30 tab 02/22/20 04/18/20 04/18/20 Rx liraglutide 0.6 mg/0.1 mL (18 mg/3 0.6 mg SUBCUT DAILY #6 ml 02/22/20 04/18/20 04/17/20 Rx mL) subcutaneous pen injector metformin 1,000 mg tablet 1,000 mg PO BID #60 tab 02/22/20 04/18/20 04/18/20 Rx tizanidine 6 mg capsule 6 mg PO .Q4-6H PRN 30 Days #90 cap 02/23/20 04/18/20 04/17/20 Rx lisinopril 20 mg tablet 20 mg PO DAILY #30 tab 03/02/20 04/18/20 04/18/20 Rx naproxen 500 mg tablet 500 mg PO Q12H 30 Days #60 tab 03/15/20 04/18/20 04/18/20 Rx oxybutynin chloride 5 mg tablet 5 mg PO BID #60 tab 03/21/20 04/18/20 04/18/20 Rx albuterol sulfate 90 mcg/actuation 2 puff INHALATION QID PRN #8.5 gm 03/23/20 04/18/20 04/18/20 Rx aerosol inhaler blood sugar diagnostic #100 each 03/23/20 04/18/20 Unknown Rx blood-glucose meter #1 each 03/23/20 04/18/20 Unknown Rx paroxetine HCl 20 mg tablet 20 mg PO QAM #90 tab 03/23/20 04/18/20 04/18/20 Rx paroxetine HCl 40 mg tablet 40 mg PO QAM #90 tab 03/23/20 04/18/20 04/18/20 Rx quetiapine 50 mg tablet 50 mg PO BID PRN #180 tab 03/23/20 04/18/20 04/17/20 Rx trazodone 300 mg tablet 300 mg PO BEDTIME #90 tab 03/23/20 04/18/20 04/17/20 Rx lancets #100 each 03/31/20 04/18/20 Unknown Rx gabapentin 600 mg tablet 1,200 mg PO TID 30 Days #180 tab 04/05/20 04/18/20 04/18/20 Rx Allergies Allergy/AdvReac Type Severity Reaction Status Date / Time No Known Allergies Allergy Verified 04/18/20 17:43 PFSH Acute PFSH: Medical History Asthma Benign essential HTN Bilateral primary osteoarthritis of knee Binge eating disorder DDD (degenerative disc disease) Fatty infiltration of liver Gender dysphoria Hypothyroidism Intervertebral disc disorders with radiculopathy, lumbar region Major depressive disorder, recurrent severe without psychotic features Nicotine dependence, cigarettes, uncomplicated Panic disorder without agoraphobia Personal history of self-harm Uncontrolled type 2 diabetes mellitus, without long-term current use of insulin Surgical History History of endometrial biopsy (04/13/20) benign endocervical epithelium Hx of foot surgery Family History Mother Diabetes Other Heart disease Social History Smoking and tobacco status: current some day smoker cigarettes Packs smoked per day: 0.5 Years cigarettes smoked: 20 Quit status (tobacco): not considering quitting Second hand smoke exposure: No Alcohol intake: current Alcohol intake frequency: holidays/special occasions only Alcohol type: beer and hard liquor Substance/Drug Use: current Substance/Drug use frequency: few times a month Substance/Drug use type: Marijuana Other substance/drug use details: Occasional marijuana Household members: other Details: partner and her mom History of recent travel: No Current gender identity: Male and Other Gender Identity Comment: Goes by Saul, considering formal transition Vitals/I&O/Wt Last Vital Signs Temp 98.4 F 04/19/20 04:00 Pulse 71 04/19/20 05:14 Resp 16 04/19/20 05:14 BP 174/74 04/19/20 04:00 Pulse Ox 92 04/19/20 05:14 04/18/20 04/18/20 04/19/20 14:59 22:59 06:59 Intake Total 1000 / 1000 Balance 1000 / 1000 Weight last 48 hrs Weight 413 lb Physical Exam Narrative: EXAM NARRATIVE: HEENT: Normocephalic Eye: Sclera /conjunctiva normal Respiratory and chest: Bilateral clear breath sounds on auscultation Cardiovascular: Normal S1 and S2 heart sounds Abdomen: Soft to palpation, tender right lower quadrant, voluntary guarding, no rigidity Neurological: Oriented to place person and time Skin: Intact, no lesions appreciated on gross exam Data : 04/19/20 03:00 04/19/20 03:00 A&P Assessment and plan (1) Acute appendicitis: 39-year-old female, morbidly obese with multiple comorbidities with right lower quadrant pain, leukocytosis and CT scan findings consistent with acute appendicitis Plan for laparoscopic possible open appendectomy Procedure, risks, benefits and alternatives have been discussed with the patient who wishes to proceed with surgery. Status: Acute Qualifiers: Acute appendicitis type: unspecified acute appendicitis type Qualified Code(s): K35.80 - Unspecified acute appendicitis Attestations Medical Necessity Statement*: Acute appendicitis requiring hospital stay Coding Level of Care Code Acute Hospice Community Liaison for [facility] [place] Diagnoses Acute appendicitis K35.80 Acute appendicitis type: unspecified acute appendicitis type
[2020-04-19] MEDS: sodium chloride 0.9% 1,000 ML 30 ML IV (07:12)
--- NOTE | 2020-04-19 07:17 | PC.NURSE ---
Report received from Leah HURLEY. Patient is down in surgery at this time.
--- NOTE | 2020-04-19 08:48 | SUR.PHASEI ---
0839 PATIENT TO PACU FROM OR. RR EVEN AND UNLABORED. DENIES PAIN. 3 INCISIONS TO ABDOMEN, CDI, CLOSED WITH EXOFIN.
--- NOTE | 2020-04-19 08:54 | P.PCN_ITS ---
PACU note PACU note: VSS, good respiratory effort, report to TOMOGRAPHIC TECH Post-Anesthesia Exam: awake Disposition: back to floor
--- NOTE | 2020-04-19 08:54 | PM.PACU ---
PACU note PACU note: VSS, good respiratory effort, report to SOFTWARE PROJECT ENGINEER Post-Anesthesia Exam: awake Disposition: back to floor
--- NOTE | 2020-04-19 09:25 | PC.NURSE ---
Patient returned from surgery at this time. Dr. Luna at bedside. Patient denies any pain.
--- NOTE | 2020-04-19 09:37 | SUR.PHASEI ---
0908 PATIENT TO MED SURG. NO DISTRESS. INCISIONS TO ABDOMEN, CDI. PATIENT AMBULATORY FROM BED FROM [facility] ON MED SURG.
[2020-04-19] MEDS: albuterol 8 gm MDI 2 PUFF INHALATION (10:26)
[2020-04-19 10:37] LABS: Glucose Point of Care 207 mg/dL (70-110)
--- NOTE | 2020-04-19 11:17 | PC.NURSE ---
Patient has unhooked herself from the vital signs machine and states, Dr. Berry messaged my girlfriend and told her that I would be able to go home at noon. I want to get dressed and use the bathroom. Asked patient to let me walk her to the bathroom. Patient states, No I will be fine. Hat placed in the bathroom toilet to measure urine output.
[2020-04-19] MEDS: HYDROcodone-acetaminophen 5-325 mg Tablet 1 TAB PO (12:10)
--- NOTE | 2020-04-19 12:18 | PC.RESP ---
SMOKING CESSATION INFORMATION SENT TO PATIENT.
--- NOTE | 2020-04-19 12:33 | PC.NURSE ---
Reviewed discharge instructions with patient at this time. Patient verbalized understanding of medications and follow up appointments. Patient IV removed intact. Patient is A&Ox3. Respirations even and non-labored on room air. Patient denies any nausea or pain. Patient belongings sent home with her including phone, computer, 2 blankets, and book bag. Patient wheel chaired to car.
--- NOTE | 2020-04-19 14:01 | PM.PN ---
Subjective Subjective: Interval history: Patient was seen earlier this morning, directly following surgery. She had no specific complaints other than wanting to see her surgical site. Medications: Reviewed: Yes Vitals/I&O/Wt Last Vital Signs Temp 98.1 F 04/19/20 12:33 Pulse 99 04/19/20 12:33 Resp 18 04/19/20 12:33 BP 136/85 04/19/20 12:33 Pulse Ox 92 04/19/20 12:33 04/18/20 04/19/20 04/19/20 22:59 06:59 14:59 Intake Total 1000 / 1000 700 / 700 Output Total Balance 1000 / 1000 680 / 680 Weight last 48 hrs Weight 187.334 kg Physical Exam Narrative: EXAM NARRATIVE: General exam no apparent distress Cardiovascular regular rate and rhythm Lungs clear Abdomen is soft. Surgical scars without evidence of drainage Extremities no cyanosis clubbing or edema Data : 04/19/20 03:00 04/19/20 03:00 A&P Assessment and plan (1) Acute appendicitis: Directly postoperative when I saw the patient. Doing well. Status: Acute Qualifiers: Acute appendicitis type: unspecified acute appendicitis type Qualified Code(s): K35.80 - Unspecified acute appendicitis (2) Acute kidney injury: Creatinine unchanged overnight. Had associated hypokalemia, being supplemented. Will need outpatient follow-up. Status: Acute (3) Pyuria: Without symptoms of urinary tract infection currently Status: Acute (4) Anemia: Has follow-up with gynecology for abnormal vaginal bleeding. Status: Acute Qualifiers: Anemia type: unspecified type Qualified Code(s): D64.9 - Anemia, unspecified (5) Ulcer of back: Not sure where originated but states that it is a little bit better than it had been. Denies trauma or procedure. In addition to this has 2 smaller sores/ulcers on her abdominal wall. Status: Acute (6) Uncontrolled type 2 diabetes mellitus, without long-term current use of insulin: Sliding scale insulin while in hospital Status: Chronic (7) Benign essential HTN: Held on admission Status: Chronic (8) Abnormal uterine bleeding (AUB): Currently followed by Dr. Fox with plan for D&C next week Status: Chronic (9) Asthma: By her description would be moderate persistent asthma although I am sure there is probably a component of COPD given tobacco use. Uses her inhaler at least once a day if not more frequently Status: Chronic Qualifiers: Asthma severity: moderate Asthma persistence: persistent Asthma complication type: uncomplicated Qualified Code(s): J45.40 - Moderate persistent asthma, uncomplicated (10) Hypothyroidism: On chronic levothyroxine Status: Chronic Qualifiers: Hypothyroidism type: acquired Qualified Code(s): E03.9 - Hypothyroidism, unspecified (11) Urinary incontinence: On chronic oxybutynin Status: Acute Qualifiers: Urinary Incontinence type: urge incontinence Qualified Code(s): N39.41 - Urge incontinence (12) Fatty infiltration of liver: Status: Chronic (13) Morbid obesity with BMI of 50.0-59.9, adult: Status: Chronic (14) Nicotine dependence, cigarettes, uncomplicated: Status: Chronic Additional A&P Information Full code SCDs for DVT prophylaxis Discharge per surgery when recovered Attestations Medical Necessity Statement*: Per primary Coding Level of Care Code 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 [employer] Diagnoses Acute appendicitis K35.80 Acute appendicitis type: unspecified acute appendicitis type Acute kidney injury N17.9 Pyuria R82.81 Anemia D64.9 Anemia type: unspecified type Ulcer of back L98.429 Uncontrolled type 2 diabetes mellitus, without long-term current use of insulin E11.65 Benign essential HTN I10 Abnormal uterine bleeding (AUB) N93.9 Asthma J45.40 Asthma severity: moderate Asthma persistence: persistent Asthma complication type: uncomplicated Hypothyroidism E03.9 Hypothyroidism type: acquired Urinary incontinence N39.41 Urinary Incontinence type: urge incontinence Fatty infiltration of liver K76.0 Morbid obesity with BMI of 50.0-59.9, adult E66.01; Z68.43 Nicotine dependence, cigarettes, uncomplicated F17.210
--- NOTE | 2020-04-19 14:24 | PC.NURSE ---
Called patient at this time to let her know that Dr. Luna said to stop the Naproxen. Not to take her Metformin for [address] dye and to get a BNP done on her follow up visit with her primary care doctor. Also informed patient that [facility] [place] and we are rying to obtain a written prescription for her. Patient verbalized understanding to these things.
--- NOTE | 2020-04-20 10:44 | PM.OP ---
Operative Report Date of procedure: April 19, 2020 Pre-op Diagnosis: Acute appendicitis Post-op diagnosis: same Procedure Done: Laparoscopic appendectomy Specimens removed/disposition: Appendix Surgeon: Gregorio Berry Anesthesia: General Estimated blood loss (mL): 20 Condition: stable Disposition: PACU Procedure: The patient was taken to the Operating Room and intubated under general anesthesia after antibiotic had been administered. Using a 15 blade, a 1-cm infraumbilical incision was made and using open [place] technique, the peritoneal cavity was entered. A 12mm port with balloon was placed and 14 mm of pneumoperitoneum was created and 10-mm 30 degree scope was introduced. Two separate 5mm ports were placed in the left and right lower quadrant under direct visualization. The appendix was noted in the right lower quadrant and appeared acutely inflamed.. Using [place] forceps, an opening was made in the mesoappendix near the base of the appendix. An Endo MARIA FERNANDA stapler 45mm long 3.5mm blue load was introduced to divide the appendix at it's base. Using electrocautery, the mesoappendix including the appendicular artery was divided. There was no bleeding noted and the staple line appeared intact. The right lower quadrant was irrigated with saline and an EndoCatch bag was introduced to remove the appendix. All three ports were removed under direct visualization and there was no bleeding noted on the port sites. 10 cc of 0.5% Marcaine was infiltrated at the port sites. The fascia at the umbilical port was closed using figure of eight 0-Vicryl sutures and subcutaneous tissue was approximated using 3-0 Vicryl and skin at all 3 port sites was closed using 4-0 Monocryl and Dermabond.
--- NOTE | 2020-04-20 10:48 | P.DS_ITS ---
Discharge Providers Date of Admission: 04/18/20 19:21 Date of Discharge: April 20, 2020 Attending Provider at Admission: Gregorio Berry MD Attending Provider at Discharge: Gregorio Berry MD Primary Care Provider: Enriqueta Mann DO Diagnoses at Discharge Discharge Diagnosis (1) Acute appendicitis: Status: Resolved Qualifiers: Acute appendicitis type: unspecified acute appendicitis type Qualified Code(s): K35.80 - Unspecified acute appendicitis (2) Acute kidney injury: Status: Resolved (3) Pyuria: Status: Acute (4) Anemia: Status: Resolved Qualifiers: Anemia type: unspecified type Qualified Code(s): D64.9 - Anemia, unspecified (5) Ulcer of back: Status: Acute (6) Uncontrolled type 2 diabetes mellitus, without long-term current use of insulin: Status: Chronic (7) Benign essential HTN: Status: Chronic (8) Abnormal uterine bleeding (AUB): Status: Chronic (9) Asthma: Status: Chronic Qualifiers: Asthma complication type: uncomplicated Asthma persistence: persistent Asthma severity: moderate Qualified Code(s): J45.40 - Moderate persistent asthma, uncomplicated (10) Hypothyroidism: Status: Chronic Qualifiers: Hypothyroidism type: acquired Qualified Code(s): E03.9 - Hypothyroidism, unspecified (11) Urinary incontinence: Status: Acute Qualifiers: Urinary Incontinence type: urge incontinence Qualified Code(s): N39.41 - Urge incontinence (12) Fatty infiltration of liver: Status: Chronic (13) Morbid obesity with BMI of 50.0-59.9, adult: Status: Chronic (14) Nicotine dependence, cigarettes, uncomplicated: Status: Chronic Reason for Visit Reason for Visit: ABDOMINAL PAIN Hospital Course Discharge Summary: This is a 39-year-old female who was admitted to the hospital for IV antibiotics after she was diagnosed with acute appendicitis. The patient underwent laparoscopic appendectomy the following morning. At time of discharge she was tolerating a liquid diet, ambulating and pain is controlled with oral pain medications. Discharge Data Data Completed and Pending: Completed Studies During Hospitalization Category Date Time Status CT abdomen pelvis w con* [id number] Stat Cat Scan 04/18/20 17:07 Completed Pending at discharge Category Date Time Status Urine Culture Sta t Lab 04/18/20 18:48 Results Pathology: Surgic al [PTH] Routine Pth 04/19/20 08:15 Received Vitals: Last Vital Signs Temp 98.1 F 04/19/20 12:33 Pulse 99 04/19/20 12:33 Resp 18 04/19/20 12:33 BP 136/85 04/19/20 12:33 Pulse Ox 92 04/19/20 12:33 Discharge Plan Discharge Patient Disposition: Home Condition: Stable Prescriptions: New Zofran 4 mg tablet 4 mg PO Q6H PRN (Reason: nausea and vomiting) Qty: 20 RF: 0 Colace 100 mg capsule 100 mg PO BID Qty: 30 RF: 0 [place] 5-325 mg tablet 1 tab PO Q6H 7 Days Qty: 20 RF: 0 Continued chlorthalidone 25 mg tablet 25 mg PO DAILY Qty: 30 RF: 0 metformin 1,000 mg tablet 1,000 mg PO BID Qty: 60 RF: 0 Victoza 2-Jean-Pierre 0.6 mg/0.1 mL (18 mg/3 mL) pen injector 0.6 mg SUBCUT DAILY Qty: 6 RF: 0 (DME) blood-glucose meter [Accu-Chek Stormy Plus Meter] Misc See Rx Instructions .ROUTE .MEDSUPPLY Qty: 1 RF: 0 (DME) Accu-Chek Stormy Plus test strp Strip See Rx Instructions .ROUTE .MEDSUPPLY Qty: 100 RF: 0 lisinopril 20 mg tablet 20 mg PO DAILY Qty: 30 RF: 0 trazodone 300 mg tablet 300 mg PO BEDTIME Qty: 90 RF: 2 paroxetine HCl [Paxil] 20 mg tablet 20 mg PO QAM Qty: 90 RF: 2 paroxetine HCl [Paxil] 40 mg tablet 40 mg PO QAM Qty: 90 RF: 2 quetiapine [Seroquel] 50 mg tablet 50 mg PO BID PRN (Reason: anxiety/agitation) Qty: 180 RF: 2 levothyroxine 50 mcg capsule 50 mcg PO DAILY 30 Days Qty: 30 RF: 1 montelukast [Singulair] 10 mg tablet 10 mg PO DAILY Qty: 90 RF: 1 tizanidine [Zanaflex] 6 mg capsule 6 mg PO .Q4-6H PRN (Reason: muscle spasticity) 30 Days Qty: 90 RF: 2 oxybutynin chloride 5 mg tablet 5 mg PO BID Qty: 60 RF: 0 albuterol sulfate [ProAir HFA] 90 mcg/actuation HFA aerosol inhaler 2 puff INHALATION QID PRN (Reason: shortness of breath or wheezing) Qty: 8.5 RF: 1 (DME) lancets [Accu-Chek Fastclix Lancet Drum] Misc See Rx Instructions .ROUTE .MEDSUPPLY Qty: 100 RF: 4 gabapentin 600 mg tablet 1,200 mg PO TID 30 Days Qty: 180 RF: 0 acetaminophen [Tylenol] 325 mg Tablet 325 mg PO PRN RF: 0 Discontinued naproxen [Naprosyn] 500 mg tablet 500 mg PO Q12H 30 Days Qty: 60 RF: 2 Discharge Orders: Discharge Order (Routine); Ordered 04/19/20 Ordered By: Gregorio Berry Referrals: Gregorio Berry MD [Physician] - 05/02/20 3:00 pm Enriqueta Mann DO [Primary Care Provider] - 04/28/20 1:15 pm Discharge Diet: Advance as tolerated Patient Instructions: Hydrocodone/Acetaminophen (By mouth), Laxative, Stool Softeners (By mouth), Ondansetron (By mouth), Laparoscopic Appendectomy in Children (DC) Activity Restrictions/Additional Instructions: 1. Up and walking as tolerated. 2. Ok to shower in 48 hours after surgery. 3. Remove Dermabond dressing in 7-10 days. 4. Do not lift more than 10 pounds. 5. Do not operate heavy machinery or drive while using pain medications. 6. Advised to return to ER or contact my office if there are any signs of infection like, increasing pain, fevers, chills, redness or drainage of pus. 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 Diagnoses Acute appendicitis K35.80 Acute appendicitis type: unspecified acute appendicitis type Acute kidney injury N17.9 Pyuria R82.81 Anemia D64.9 Anemia type: unspecified type Ulcer of back L98.429 Uncontrolled type 2 diabetes mellitus, without long-term current use of insulin E11.65 Benign essential HTN I10 Abnormal uterine bleeding (AUB) N93.9 Asthma J45.40 Asthma complication type: uncomplicated Asthma persistence: persistent Asthma severity: moderate Hypothyroidism E03.9 Hypothyroidism type: acquired Urinary incontinence N39.41 Urinary Incontinence type: urge incontinence Fatty infiltration of liver K76.0 Morbid obesity with BMI of 50.0-59.9, adult E66.01; Z68.43 Nicotine dependence, cigarettes, uncomplicated F17.210
== END 2020-04-19 12:47 | disposition home or self-care (01) ==
LOC: ER 19:25 → MEDSURG 19:46
PROVIDERS: Family Medicine; Hospitalist; Admitting Provider Surgery; Emergency Provider Emergency Medicine; PCP Family Medicine; Visit Provider Surgery
PROC: 0DTJ4ZZ Resection of Appendix, Percutaneous Endoscopic Approach (ICD-10-PCS; CPT 44970; principal; 2020-04-19 07:00)
DX: K35.80 Unspecified acute appendicitis (principal); N17.9 Acute kidney failure, unspecified; R82.81 Pyuria; D64.9 Anemia, unspecified; L98.429 Non-pressure chronic ulcer of back with unspecified severity; E11.65 Type 2 diabetes mellitus with hyperglycemia; I10 Essential (primary) hypertension; J45.40 Moderate persistent asthma, uncomplicated; E03.9 Hypothyroidism, unspecified; N39.41 Urge incontinence; K76.0 Fatty (change of) liver, not elsewhere classified; E66.01 Morbid (severe) obesity due to excess calories; Z68.43 Body mass index [BMI] 50.0-59.9, adult; F17.210 Nicotine dependence, cigarettes, uncomplicated
CPT/HCPCS: 44970; 12345; 36415; 36416; 74177; 80048; 80053; 81001; 82962; 83036; 83690; 83735; 84100; 84703; 85025; 85610; 87077; 87086; 87186; 88304; 93005; 94640; 96365; 96375; 99283; 99285; G0378; J0131; J0330; J1100; J1170; J2270; J2405; J2543; J2704; J2710; J3010; J3490; J3535; J7030; Q9967

== ENCOUNTER → 2020-04-28 14:06 | Outpatient (BNVA) | payer MEDICARE, MEDICAID, SELFPAY | PROVIDERS: PCP Family Medicine; Visit Provider Family Medicine | DX: Z11.59 Encounter for screening for other viral diseases (principal); Z20.828 Contact with and (suspected) exposure to other viral communicable diseases; R05 Cough | CPT/HCPCS: 87635 ==

== ENCOUNTER 2020-11-30 00:26 | Emergency (ER) | payer MEDICARE, MEDICAID, SELFPAY ==
[2020-11-30 00:52] VITALS: BP 194/105; PULSE 106; RESP 15; TEMP 36.3; O2SAT 97; BMI 50.2
[2020-11-30] MEDS: LORazepam 2 mg Tablet PO (03:36)
--- NOTE | 2020-11-30 03:42 | W.ED.SKABFB ---
HPI - Skin/Abscess/Foreign Bdy General: Chief complaint: Skin/Abscess/Foreign Body Stated complaint: INFECTED WOUNDS Time Seen by Provider: 11/30/20 03:11 Source: patient Mode of arrival: ambulatory Limitations: no limitations History of Present Illness: HPI narrative: 39-year-old female history of methamphetamine abuse. States she did use meth this morning and is concerned she is on a sore in her left thigh with some erythema. States she also has some pain in her hands. She denies any fevers. Denies any worsening improving factors. She has some anxiety denies any suicidal homicidal ideations. Associated symptoms: Deny chills, fever(s), nausea or vomiting Review of Systems Const: Denies: fever(s), chills, body aches or change in appetite Eyes: Denies: blurry vision or eye discomfort ENMT: Denies: throat pain or dental pain Card: Denies: chest pain Resp: Denies: dyspnea GI: Denies: abdominal pain, nausea, vomiting or diarrhea : Denies: dysuria Musc: Denies: neck pain or back pain Skin/Breast: Reports: pruritus; Denies: rash Neuro: Denies: headache(s) Psych: Denies: depression Amilcar/Lymph: Denies: easy bruising All/Imm: Denies: urticaria PFSH ED PFSH: Medical History (Updated 11/30/20 @ 03:23 by Nolan Rodriguez MD) Asthma Benign essential HTN Bilateral primary osteoarthritis of knee Binge eating disorder DDD (degenerative disc disease) Fatty infiltration of liver Gender dysphoria Hypothyroidism Intervertebral disc disorders with radiculopathy, lumbar region Major depressive disorder, recurrent severe without psychotic features Nicotine dependence, cigarettes, uncomplicated Panic disorder without agoraphobia Personal history of self-harm Uncontrolled type 2 diabetes mellitus, without long-term current use of insulin Surgical History History of endometrial biopsy (04/13/20) benign endocervical epithelium Hx of foot surgery S/P laparoscopic appendectomy (04/19/20) Family History Mother Diabetes Other Heart disease Social History (Updated 11/30/20 @ 00:58 by Godfrey Schafer RN) Smoking and tobacco status: current some day smoker cigarettes Packs smoked per day: 0.5 Years cigarettes smoked: 20 Alcohol intake: current Alcohol intake frequency: holidays/special occasions only Alcohol type: beer and hard liquor Substance/Drug Use: current Substance/Drug use frequency: few times a month Substance/Drug use type: Amphetamines and Methamphetamine Other substance/drug use details: Occasional marijuana Household members: other Details: partner and her mom History of recent travel: No Current gender identity: Male and Other Gender Identity Comment: Goes by Saul, considering formal transition Physical Exam Const: COMMON NORMALS: no acute distress, patient oriented x3 and healthy appearing HENMT: COMMON NORMALS: normocephalic and atraumatic HEAD & SCALP: normocephalic and atraumatic Eye: COMMON NORMALS: Equal, round and reactive pupils present and EOMs intact bilaterally PUPIL: Yes Equal, round and reactive pupils present Neck/C-Spine: COMMON NORMALS: full ROM and supple Chest: COMMONS NORMALS: normal inspection of the chest and normal palpation of entire chest wall Resp: COMMON NORMALS: normal respiratory effort, No retractions, No use of accessory muscles and clear to auscultation bilaterally AUSCULTATION: clear to auscultation bilaterally Cardio: COMMON NORMALS: regular rate, regular rhythm and No murmurs present (Cardio) RATE: regular rate RHYTHM: regular rhythm GI: COMMON NORMALS: Normal to inspection, nondistended, normoactive bowel sounds present, Soft to palpation, non-tender and no masses PALPATION: Yes Soft to palpation Extremity: COMMON NORMALS: normal to inspection and full ROM Neuro: COMMON NORMALS: patient oriented x3, moves all extremities and no focal motor deficits Psych: COMMON NORMALS: mental status grossly normal, Normal thought process present and cooperative THOUGHT PROCESS: Normal thought process present Skin: COMMON NORMALS: no wounds NARRATIVE SKIN EXAM: Chronic appearing wound to left thigh that is roughly the size of a quarter with slight cellulitis no necrosis erythema to the hands with no signs of cellulitis or septic joint Course Vital Signs: Vital signs: Vital Signs Temperature 97.3 F L 11/30/20 04:02 Pulse Rate 103 H 11/30/20 04:02 Respiratory Rate 17 11/30/20 04:02 Blood Pressure 152/111 11/30/20 04:02 Pulse Oximetry 96 11/30/20 04:02 MDM - Skin/Abscess/Foreign Bdy MDM Narrative: Medical decision making narrative: Patient presents here with slight cellulitis to her leg. Is likely from IV meth use. She is little anxious here as well from methamphetamine use today. She has no signs of major infection is stable for discharge with Keflex. She is return if worsening. Discharge Plan Discharge Patient Disposition: Home Clinical Impression: Cellulitis, Methamphetamine abuse Condition: Stable Prescriptions: New cephalexin 500 mg capsule 500 mg PO TID 7 Days Qty: 21 RF: 0 No Action chlorthalidone 25 mg tablet 25 mg PO DAILY Qty: 30 RF: 0 metformin 1,000 mg tablet 1,000 mg PO BID Qty: 60 RF: 0 (DME) blood-glucose meter [Accu-Chek Stormy Plus Meter] Misc See Rx Instructions .ROUTE .MEDSUPPLY Qty: 1 RF: 0 (DME) Accu-Chek Stormy Plus test strp Strip See Rx Instructions .ROUTE .MEDSUPPLY Qty: 100 RF: 0 trazodone 300 mg tablet 300 mg PO BEDTIME Qty: 90 RF: 2 paroxetine HCl [Paxil] 20 mg tablet 20 mg PO QAM Qty: 90 RF: 2 paroxetine HCl [Paxil] 40 mg tablet 40 mg PO QAM Qty: 90 RF: 2 quetiapine [Seroquel] 50 mg tablet 50 mg PO BID PRN (Reason: anxiety/agitation) Qty: 180 RF: 2 mupirocin 2 % ointment 1 applic TOPICAL BID Qty: 22 RF: 0 levothyroxine 50 mcg capsule 50 mcg PO DAILY 30 Days Qty: 30 RF: 1 montelukast [Singulair] 10 mg tablet 10 mg PO DAILY Qty: 90 RF: 1 albuterol sulfate [ProAir HFA] 90 mcg/actuation HFA aerosol inhaler 2 puff INHALATION QID PRN (Reason: shortness of breath or wheezing) Qty: 8.5 RF: 1 (DME) lancets [Accu-Chek Fastclix Lancet Drum] Misc See Rx Instructions .ROUTE .MEDSUPPLY Qty: 100 RF: 4 Victoza 2-Jean-Pierre 0.6 mg/0.1 mL (18 mg/3 mL) pen injector 0.6 mg SUBCUT DAILY Qty: 6 RF: 0 lisinopril 20 mg tablet 20 mg PO DAILY Qty: 30 RF: 0 oxybutynin chloride 5 mg tablet 5 mg PO BID Qty: 60 RF: 0 tizanidine [Zanaflex] 6 mg capsule 6 mg PO .Q4-6H PRN (Reason: muscle spasticity) 30 Days Qty: 90 RF: 0 gabapentin 600 mg tablet 1,200 mg PO TID 30 Days Qty: 180 RF: 0 acetaminophen [Tylenol] 325 mg Tablet 325 mg PO PRN RF: 0 Zofran 4 mg tablet 4 mg PO Q6H PRN (Reason: nausea and vomiting) Qty: 20 RF: 0 Colace 100 mg capsule 100 mg PO BID Qty: 30 RF: 0 Discharge Orders: Discharge ED (Routine); Ordered 11/30/20 Ordered By: Nolan Rodriguez Referrals: Godfrey Barry [Primary Care Provider] - 1-3 days Discharge Diet: Advance as tolerated Discharge Activity: Resume usual activity Patient Instructions: Methamphetamine Abuse, Cellulitis (ED) Coding Level of Care 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
[2020-11-30 04:02] VITALS: BP 152/111; PULSE 103; RESP 17; TEMP 36.3; O2SAT 96
== END 2020-11-30 04:02 | disposition home or self-care (01) ==
PROVIDERS: Emergency Provider Emergency Medicine
DX: L03.116 Cellulitis of left lower limb (principal); F15.10 Other stimulant abuse, uncomplicated; Z79.84 Long term (current) use of oral hypoglycemic drugs; I10 Essential (primary) hypertension; E11.9 Type 2 diabetes mellitus without complications; F17.210 Nicotine dependence, cigarettes, uncomplicated
CPT/HCPCS: 99282

== ENCOUNTER 2020-12-14 00:43 | Emergency (ER) | payer MEDICARE, MEDICAID, SELFPAY ==
[2020-12-14 00:45] VITALS: BP 148/101; PULSE 84; RESP 18; TEMP 36.7; O2SAT 98; BMI 50.2
--- NOTE | 2020-12-14 00:51 | W.ED.EXTPRO ---
HPI - Extremity Problem General: Chief complaint: Extremity Injury, Upper Stated complaint: swollen fingers Time Seen by Provider: 12/14/20 00:47 Source: patient and EMS Mode of arrival: EMS Limitations: no limitations History of Present Illness: HPI Narrative: 40-year-old female states she has finger pain. She was seen here 2 weeks ago with erythema to her fingers. Her swelling is actually improved but she states that pain is still there. She rates pain a 4 out of 10. Denies any fever. Denies any open sores. Denies any worsening improving factors. Associated symptoms: Deny chest pain, fever(s) or rash Review of Systems Const: Denies: fever(s), chills, body aches or change in appetite Eyes: Denies: blurry vision or eye discomfort ENMT: Denies: throat pain or dental pain Card: Denies: chest pain Resp: Denies: dyspnea GI: Denies: abdominal pain, nausea, vomiting or diarrhea : Denies: dysuria Musc: Denies: neck pain or back pain Skin/Breast: Denies: rash Neuro: Denies: headache(s) Psych: Denies: depression Amilcar/Lymph: Denies: easy bruising All/Imm: Denies: urticaria PFSH ED PFSH: Medical History (Updated 12/14/20 @ 00:50 by Nolan Rodriguez MD) Asthma Benign essential HTN Bilateral primary osteoarthritis of knee Binge eating disorder DDD (degenerative disc disease) Fatty infiltration of liver Gender dysphoria Hypothyroidism Intervertebral disc disorders with radiculopathy, lumbar region Major depressive disorder, recurrent severe without psychotic features Nicotine dependence, cigarettes, uncomplicated Panic disorder without agoraphobia Personal history of self-harm Uncontrolled type 2 diabetes mellitus, without long-term current use of insulin Surgical History History of endometrial biopsy (04/13/20) benign endocervical epithelium Hx of foot surgery S/P laparoscopic appendectomy (04/19/20) Family History Mother Diabetes Other Heart disease Social History (Updated 11/30/20 @ 00:58 by Godfrey Schafer RN) Smoking and tobacco status: current some day smoker cigarettes Packs smoked per day: 0.5 Years cigarettes smoked: 20 Alcohol intake: current Alcohol intake frequency: holidays/special occasions only Alcohol type: beer and hard liquor Household members: other Details: partner and her mom History of recent travel: No Current gender identity: Male and Other Gender Identity Comment: Goes by Saul, considering formal transition Physical Exam Const: COMMON NORMALS: no acute distress, patient oriented x3 and healthy appearing HENMT: COMMON NORMALS: normocephalic and atraumatic HEAD & SCALP: normocephalic and atraumatic Eye: COMMON NORMALS: Equal, round and reactive pupils present and EOMs intact bilaterally PUPIL: Yes Equal, round and reactive pupils present Neck/C-Spine: COMMON NORMALS: full ROM and supple Chest: COMMONS NORMALS: normal inspection of the chest and normal palpation of entire chest wall Resp: COMMON NORMALS: normal respiratory effort, No retractions, No use of accessory muscles and clear to auscultation bilaterally AUSCULTATION: clear to auscultation bilaterally Cardio: COMMON NORMALS: regular rate, regular rhythm and No murmurs present (Cardio) RATE: regular rate RHYTHM: regular rhythm GI: COMMON NORMALS: Normal to inspection, nondistended, normoactive bowel sounds present, Soft to palpation, non-tender and no masses PALPATION: Yes Soft to palpation Extremity: COMMON NORMALS: normal to inspection and full ROM NARRATIVE EXTREMITY EXAM: Slight swelling to finger no erythema or warmth to touch Neuro: COMMON NORMALS: patient oriented x3, moves all extremities and no focal motor deficits Psych: COMMON NORMALS: mental status grossly normal, Normal thought process present and cooperative THOUGHT PROCESS: Normal thought process present Skin: COMMON NORMALS: no rashes or lesions noted and no wounds GENERAL SKIN EXAM: no rashes or lesions noted Course Vital Signs: Vital signs: Vital Signs Temperature 98.1 F 12/14/20 00:45 Pulse Rate 84 12/14/20 00:45 Respiratory Rate 18 12/14/20 00:45 Blood Pressure 148/101 12/14/20 00:45 Pulse Oximetry 98 12/14/20 00:45 MDM - Extremity (Nontraumatic) MDM Narrative: Medical decision making narrative: Patient presents with finger pain. I saw her 2 weeks ago and her fingers are much better appearing today and has no signs of cellulitis. She has finished her antibiotics. She does have some very minimal swelling but no signs of paronychia's. She is stable for discharge is to follow-up with PCP and return if worsening. Discharge Plan Discharge Patient Disposition: Home Clinical Impression: Finger pain Qualifiers: Laterality: bilateral Qualified Code(s): M79.645 - Pain in left finger(s) Condition: Stable Prescriptions: New Naprosyn 500 mg tablet 500 mg PO BID PRN (Reason: pain) Qty: 20 RF: 0 No Action chlorthalidone 25 mg tablet 25 mg PO DAILY Qty: 30 RF: 0 metformin 1,000 mg tablet 1,000 mg PO BID Qty: 60 RF: 0 (DME) blood-glucose meter [Accu-Chek Stormy Plus Meter] Misc See Rx Instructions .ROUTE .MEDSUPPLY Qty: 1 RF: 0 (DME) Accu-Chek Stormy Plus test strp Strip See Rx Instructions .ROUTE .MEDSUPPLY Qty: 100 RF: 0 trazodone 300 mg tablet 300 mg PO BEDTIME Qty: 90 RF: 2 paroxetine HCl [Paxil] 20 mg tablet 20 mg PO QAM Qty: 90 RF: 2 paroxetine HCl [Paxil] 40 mg tablet 40 mg PO QAM Qty: 90 RF: 2 quetiapine [Seroquel] 50 mg tablet 50 mg PO BID PRN (Reason: anxiety/agitation) Qty: 180 RF: 2 mupirocin 2 % ointment 1 applic TOPICAL BID Qty: 22 RF: 0 levothyroxine 50 mcg capsule 50 mcg PO DAILY 30 Days Qty: 30 RF: 1 montelukast [Singulair] 10 mg tablet 10 mg PO DAILY Qty: 90 RF: 1 albuterol sulfate [ProAir HFA] 90 mcg/actuation HFA aerosol inhaler 2 puff INHALATION QID PRN (Reason: shortness of breath or wheezing) Qty: 8.5 RF: 1 (DME) lancets [Accu-Chek Fastclix Lancet Drum] Misc See Rx Instructions .ROUTE .MEDSUPPLY Qty: 100 RF: 4 Victoza 2-Jean-Pierre 0.6 mg/0.1 mL (18 mg/3 mL) pen injector 0.6 mg SUBCUT DAILY Qty: 6 RF: 0 lisinopril 20 mg tablet 20 mg PO DAILY Qty: 30 RF: 0 oxybutynin chloride 5 mg tablet 5 mg PO BID Qty: 60 RF: 0 tizanidine [Zanaflex] 6 mg capsule 6 mg PO .Q4-6H PRN (Reason: muscle spasticity) 30 Days Qty: 90 RF: 0 gabapentin 600 mg tablet 1,200 mg PO TID 30 Days Qty: 180 RF: 0 acetaminophen [Tylenol] 325 mg Tablet 325 mg PO PRN RF: 0 Zofran 4 mg tablet 4 mg PO Q6H PRN (Reason: nausea and vomiting) Qty: 20 RF: 0 Colace 100 mg capsule 100 mg PO BID Qty: 30 RF: 0 Discharge Orders: Discharge ED (Routine); Ordered 12/14/20 Ordered By: Nolan Rodriguez Discharge Diet: Advance as tolerated Discharge Activity: Resume usual activity Patient Instructions: Finger Sprain (ED) Coding 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
[2020-12-14] MEDS: naproxen 500 mg Tablet PO (01:02)
[2020-12-14 01:07] VITALS: BP 140/76; O2SAT 97
[2020-12-14 01:09] VITALS: BP 140/66
== END 2020-12-14 01:00 | disposition home or self-care (01) ==
LOC: ER 00:56
PROVIDERS: Emergency Provider Emergency Medicine
DX: M79.645 Pain in left finger(s) (principal); M79.644 Pain in right finger(s); I10 Essential (primary) hypertension; E11.9 Type 2 diabetes mellitus without complications; F17.210 Nicotine dependence, cigarettes, uncomplicated
CPT/HCPCS: 99282

== ENCOUNTER 2021-06-23 03:53 | Emergency (ER) | payer MEDICARE, MEDICAID, SELFPAY ==
[2021-06-23 03:54] VITALS: TEMP 36.6; O2SAT 99; BMI 36.2
--- NOTE | 2021-06-23 04:06 | XRR_ITS ---
PROCEDURE INFORMATION: Exam: XR Left Ankle Exam date and time: 06/23/2021 4:06 AM Age: 40 years old Clinical indication: Swelling, leg or foot; Left; Prior surgery; Patient HX: C/O severe ankle pain with swelling. Best films obtained as patient was barely able to tolerate positioning. TECHNIQUE: Imaging protocol: XR Left ankle. Views: 1 or 2 views. COMPARISON: No relevant prior studies available. FINDINGS: Bones/joints: Two orthopedic haroon project on the calcaneus. No fracture, dislocation or other acute abnormalities are seen. The radiographs however are suboptimal due to limited positioning. Soft tissues: There is soft tissue swelling around the ankle. XR/XR ankle LT 2V [id number] IMPRESSION: Soft tissue swelling. No acute bony abnormality is seen. Radiation Dose CTDIVOL = (mGy): DLP = (mGy-cm)
--- NOTE | 2021-06-23 04:36 | ED_ITS ---
HPI - Extremity Problem General: Chief complaint: Extremity Problem,Nontraumatic Stated complaint: Left Foot Pain Time Seen by Provider: 06/23/21 04:20 History of Present Illness: HPI Narrative: 40-year-old female who says she hit her left ankle on a wooden 2 x 4 . She previously had surgery on the ankle when she was young. She complains of pain and swelling. She is unable to bear weight. She does admit to using methamphetamine in the last 24 hours MD Complaint: extremity pain and extremity swelling Onset (ago): hour(s) Pain Consistency: constant Location: left, lower extremity and other (ankle) Quality: stabbing and aching Radiation: none Relieving factors: immobilization Exacerbating factors: range of motion and weight bearing Associated symptoms: Deny chest pain, fever(s), myalgias or short of breath Review of Systems Const: Denies: fever(s) Eyes: Denies: change in vision Card: Denies: chest pain Resp: Denies: dyspnea or productive cough GI: Denies: abdominal pain, nausea or vomiting PFSH ED PFSH: Medical History (Updated 06/23/21 @ 04:42 by Binh Box DO) Asthma Benign essential HTN Bilateral primary osteoarthritis of knee Binge eating disorder DDD (degenerative disc disease) Fatty infiltration of liver Gender dysphoria Hypothyroidism Intervertebral disc disorders with radiculopathy, lumbar region Major depressive disorder, recurrent severe without psychotic features Nicotine dependence, cigarettes, uncomplicated Panic disorder without agoraphobia Personal history of self-harm Uncontrolled type 2 diabetes mellitus, without long-term current use of insulin Surgical History History of endometrial biopsy (04/13/20) benign endocervical epithelium Hx of foot surgery S/P laparoscopic appendectomy (04/19/20) Family History Mother Diabetes Other Heart disease Social History Smoking and tobacco status: current some day smoker cigarettes Packs smoked per day: 0.5 Years cigarettes smoked: 20 Alcohol intake: current Alcohol intake frequency: holidays/special occasions only Alcohol type: beer and hard liquor Household members: other Details: partner and her mom History of recent travel: No Current gender identity: Male and Other Gender Identity Comment: Goes by Saul, considering formal transition Female Reproductive History: Date of last menstrual period: 06/23/21 Physical Exam Const: EXAM LIMITATIONS: behavioral limitations GENERAL APPEARANCE: in distress, anxious and appears older than stated age NUTRITIONAL APPEARANCE: obese Chest: COMMONS NORMALS: normal inspection of the chest Resp: COMMON NORMALS: normal respiratory effort, No use of accessory muscles and clear to auscultation bilaterally AUSCULTATION: clear to auscultation bilaterally Cardio: COMMON NORMALS: regular rate and regular rhythm RATE: regular rate RHYTHM: regular rhythm Extremity: NARRATIVE EXTREMITY EXAM: Exam the left lower extremity reveals surgical scars over the medial and lateral posterior ankle. These are old. There is redness and swelling to the lateral ankle. There is no deformity. It is tender to touch, as the patient jumps with even the most lightest contact around the ankle. Sensation to the toes is intact capillary refill is normal. Course Vital Signs: Vital signs: Vital Signs Temperature 97.8 F 06/23/21 03:54 Pulse Oximetry 99 06/23/21 03:54 MDM - Extremity (Nontraumatic) MDM Narrative: Medical decision making narrative: X-ray negative for fracture. The patient will likely not tolerate a splint or a cast. She is very hypersensitive to pain, essentially too much so. We will Layo wrap her ankle, and have her weight-bear using a crutch to begin to put weight on the ankle when she feels like she can. PCP follow-up Discharge Plan Discharge Patient Disposition: Home Clinical Impression: Ankle contusion Qualifiers: Encounter type: initial encounter Laterality: left Qualified Code(s): S90.02XA - Contusion of left ankle, initial encounter Condition: Stable Prescriptions: New ketorolac 10 mg tablet 10 mg PO TID PRN (Reason: pain) Qty: 10 RF: 0 No Action (DME) blood-glucose meter [Accu-Chek Stormy Plus Meter] Misc See Rx Instructions .ROUTE .MEDSUPPLY Qty: 1 RF: 0 (DME) Accu-Chek Stormy Plus test strp Strip See Rx Instructions .ROUTE .MEDSUPPLY Qty: 100 RF: 0 trazodone 300 mg tablet 300 mg PO BEDTIME Qty: 90 RF: 2 levothyroxine 50 mcg capsule 50 mcg PO DAILY 30 Days Qty: 30 RF: 1 (DME) lancets [Accu-Chek Fastclix Lancet Drum] Misc See Rx Instructions .ROUTE .MEDSUPPLY Qty: 100 RF: 4 acetaminophen [Tylenol] 325 mg Tablet 325 mg PO PRN RF: 0 Discharge Orders: Discharge ED (Routine); Ordered 06/23/21 Ordered By: Binh Box Patient Instructions: Foot Contusion (ED) Activity Restrictions/Additional Instructions: Ice and elevate the ankle for the next week. Crutch for weightbearing. You may begin to bear weight as tolerated. Follow-up with your doctor if you continue to have pain. 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
[2021-06-23] MEDS: ketorolac 30 mg/mL INJ IM (04:48)
[2021-06-23 04:54] VITALS: BP 163/111; PULSE 102; O2SAT 97
[2021-06-23 05:12] VITALS: BP 163/111; PULSE 101; O2SAT 98
== END 2021-06-23 05:14 | disposition home or self-care (01) ==
PROVIDERS: Emergency Provider Emergency Medicine
DX: S90.02XA Contusion of left ankle, initial encounter (principal); I10 Essential (primary) hypertension; E11.9 Type 2 diabetes mellitus without complications; F17.210 Nicotine dependence, cigarettes, uncomplicated; W22.8XXA Striking against or struck by other objects, initial encounter
CPT/HCPCS: 73600; 96372; 99283; J1885

== ENCOUNTER 2021-07-01 11:05 | Emergency (ER) | payer MEDICARE, MEDICAID, SELFPAY ==
[2021-07-01 11:17] VITALS: BP 154/87; PULSE 87; RESP 16; TEMP 36.7; O2SAT 96; BMI 35.2
[2021-07-01] MEDS: ketorolac 60 mg/2 mL INJ IM (11:49)
[2021-07-01] MEDS: dexamethasone 10 mg/mL INJ 4 MG IM (11:49)
--- NOTE | 2021-07-01 11:52 | W.ED.BACK ---
HPI - Back Pain/Injury General: Chief Complaint: Back Pain/Injury Stated Complaint: leg pain no injury Time Seen by Provider: 07/01/21 11:18 History of Present Illness: HPI Narrative: Patient complains about sciatica. Patient was moving furniture from an apartment to a camper yesterday and felt she possibly pulled something now has pain going down her right leg. Has a history of sciatica. Patient currently not being treated for diabetes and told she does not have diabetes due to weight loss. MD elicited complaint: other (Sciatica) Pertinent past history: prior back pain Onset (ago): hour(s) Timing: constant Severity: mild Similar Symptoms Previously: Yes Quality: burning Location: right flank and right lower back Radiation: right upper leg and right leg below the knee Exacerbating factors: movement, sitting upright, walking and lifting Relieving factors: immobilization Context: while lifting and turning/twisting Associated symptoms: Reports no associated symptoms; Deny abdominal pain, chills, fever(s), nausea or vomiting Review of Systems Const: Denies: fever(s), chills or body aches Eyes: Denies: change in vision or blurry vision ENMT: Denies: throat pain or nasal congestion Card: Denies: chest pain or dyspnea on exertion Resp: Denies: dyspnea, productive cough or non-productive cough GI: Denies: abdominal pain, nausea or vomiting Musc: Reports: other (Sciatica right side); Denies: extremity pain Skin/Breast: Denies: rash Neuro: Denies: headache(s) Psych: Denies: anxiety or depression Amilcar/Lymph: Denies: easy bruising PFSH ED PFSH: Medical History (Updated 07/01/21 @ 11:35 by SUSAN Hines) Asthma Benign essential HTN Bilateral primary osteoarthritis of knee Binge eating disorder DDD (degenerative disc disease) Fatty infiltration of liver Gender dysphoria Hypothyroidism Intervertebral disc disorders with radiculopathy, lumbar region Major depressive disorder, recurrent severe without psychotic features Nicotine dependence, cigarettes, uncomplicated Panic disorder without agoraphobia Personal history of self-harm Uncontrolled type 2 diabetes mellitus, without long-term current use of insulin Surgical History History of endometrial biopsy (04/13/20) benign endocervical epithelium Hx of foot surgery S/P laparoscopic appendectomy (04/19/20) Family History Mother Diabetes Other Heart disease Social History Smoking and tobacco status: current some day smoker cigarettes Packs smoked per day: 0.5 Years cigarettes smoked: 20 Alcohol intake: current Alcohol intake frequency: holidays/special occasions only Alcohol type: beer and hard liquor Household members: other Details: partner and her mom History of recent travel: No Current gender identity: Male and Other Gender Identity Comment: Goes by Saul, considering formal transition Female Reproductive History: Date of last menstrual period: 06/30/21 Physical Exam Const: COMMON NORMALS: no acute distress, average body habitus and patient oriented x3 HENMT: COMMON NORMALS: normocephalic HEAD & SCALP: normal to inspection and normocephalic FACE & SINUS: normal facial exam Eye: COMMON NORMALS: conjunctivae normal GENERAL EYE: appearance normal, both eyes and all related structures CONJUNCTIVA: Yes conjunctivae normal Neck/C-Spine: COMMON NORMALS: no JVD Chest: COMMONS NORMALS: normal inspection of the chest Resp: COMMON NORMALS: normal respiratory effort and clear to auscultation bilaterally AUSCULTATION: clear to auscultation bilaterally Cardio: COMMON NORMALS: no JVD, regular rate and regular rhythm RATE: regular rate RHYTHM: regular rhythm GI: COMMON NORMALS: Normal to inspection, nondistended, normoactive bowel sounds present Back/Pelvis: LUMBAR SPINE/LOWER BACK: Yes normal to inspection, Yes lumbar ROM normal, No lumbar spinal tenderness and Yes paraspinal muscle tenderness PELVIS: Yes buttocks normal OTHER: Tenderness along sciatic nerve root upper leg down to about mid calf. Extremity: COMMON NORMALS: normal to inspection and full ROM Neuro: COMMON NORMALS: patient oriented x3 Course Vital Signs: Vital signs: Vital Signs Temperature 98.0 F 07/01/21 11:17 Pulse Rate 87 07/01/21 11:17 Respiratory Rate 16 07/01/21 11:17 Blood Pressure 154/87 07/01/21 11:17 Pulse Oximetry 96 07/01/21 11:17 Discharge Plan Discharge Patient Disposition: Home Clinical Impression: Lumbar radiculopathy, right Condition: Stable Prescriptions: New Celebrex 100 mg capsule 100 mg PO BID Qty: 20 RF: 0 No Action (DME) blood-glucose meter [Accu-Chek Stormy Plus Meter] Misc See Rx Instructions .ROUTE .MEDSUPPLY Qty: 1 RF: 0 (DME) Accu-Chek Stormy Plus test strp Strip See Rx Instructions .ROUTE .MEDSUPPLY Qty: 100 RF: 0 trazodone 300 mg tablet 300 mg PO BEDTIME Qty: 90 RF: 2 albuterol 90 mcg/actuation aerosol inhalation RF: 0 levothyroxine 50 mcg capsule 50 mcg PO DAILY 30 Days Qty: 30 RF: 1 (DME) lancets [Accu-Chek Fastclix Lancet Drum] Misc See Rx Instructions .ROUTE .MEDSUPPLY Qty: 100 RF: 4 ketorolac 10 mg tablet 10 mg PO TID PRN (Reason: pain) Qty: 10 RF: 0 acetaminophen [Tylenol] 325 mg Tablet 325 mg PO PRN RF: 0 Discharge Orders: Discharge ED (Routine); Ordered 07/01/21 Ordered By: Leonardo Mary Discharge Diet: Usual diet Discharge Activity: Limit activity as instructed Patient Instructions: Sciatica (ED), Lumbar Radiculopathy (ED) Activity Restrictions/Additional Instructions: Follow-up with medical provider as directed. Take medications as prescribed. Return to the ER or your medical provider if condition worsens. Please read and understand discharge instructions. If any questions ask please. No lifting over 10 pounds for next 3 to 4 weeks. Apply ice to lower back. Can follow-up chiropractor for adjustment if needed. 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
[2021-07-01 12:06] VITALS: PULSE 89; RESP 20; O2SAT 98
== END 2021-07-01 12:07 | disposition home or self-care (01) ==
PROVIDERS: Emergency Provider Nurse Practitioner Family
DX: M54.16 Radiculopathy, lumbar region (principal); I10 Essential (primary) hypertension; E11.9 Type 2 diabetes mellitus without complications
CPT/HCPCS: 96372; 99283; J1100; J1885

== ENCOUNTER 2021-07-16 08:21 | Outpatient (CLI) | payer MEDICARE, MEDICAID, SELFPAY ==
--- NOTE | 2021-07-16 08:31 | USCV_ITS ---
Lorie Chacon Age: 40 Gender: F : 1980 Exam Date: 07/16/2021 08:50 Ordering Phys: Trudy Junior DO Technologist: ANALIA Exam Location: [facility] [place]_ Indication: RT LE SWELLING HISTORY: Lower extremity swelling. PROCEDURES: Venous duplex imaging was performed in only the right lower extremity. The following venous structures were evaluated: common femoral vein, profunda vein, proximal portion of the greater saphenous vein, superficial femoral vein, and the popliteal vein. In addition, the posterior tibial and peroneal trunk were evaluated. FINDINGS: Normal 2-D Doppler and augmentation and compressibility throughout the lower extremity venous structures. Additional imaging through the proximal calf veins also reveals no thrombus. Limited evaluation of the greater saphenous vein is patent with no thrombus.. CONCLUSIONS No evidence of right lower extremity DVT. Roshan Morales MD (Electronically Signed) Final Date: 16 July 2021 10:49 S
--- NOTE | 2021-07-16 08:40 | XR_ITS ---
WS: [id number] Right knee, 3 views, 07/16/2021 Clinical Data: PAIN IN RIGHT KNEE Comparison: Right knee, 11/30/2018 Findings: There is narrowing of the medial and lateral joint compartments. There is spurring of the medial and lateral femoral condyles and lateral tibial plateau. The posterior patella shows irregularity. The soft tissues are normal. No fractures or dislocations are seen. XR/XR knee RT 3V* [id number] Impression: Moderate osteoarthritis of the right knee involving all 3 joint compartments. Kellgren-Lucio Classification: grade 3 (moderate): moderate multiple osteoph ytes, definite narrowing of joint space and some sclerosis and possible deformi ty of bone ends
== END 2021-07-16 08:22 | disposition home or self-care (01) ==
LOC: RAD 08:24
PROVIDERS: PCP Nurse Practitioner Family; Visit Provider Family Medicine
DX: M79.89 Other specified soft tissue disorders (principal); M17.11 Unilateral primary osteoarthritis, right knee
CPT/HCPCS: 73562; 93971

== ENCOUNTER → 2021-08-21 09:26 | Outpatient (BNVA) | payer MEDICARE, MEDICAID, SELFPAY | PROVIDERS: PCP Nurse Practitioner Family; Visit Provider Nurse Practitioner Psychiatric/Mental Health | DX: F33.2 Major depressive disorder, recurrent severe without psychotic features (principal); F17.210 Nicotine dependence, cigarettes, uncomplicated; F11.10 Opioid abuse, uncomplicated; F64.9 Gender identity disorder, unspecified; F15.20 Other stimulant dependence, uncomplicated | CPT/HCPCS: 99214 ==

== ENCOUNTER → 2021-09-20 07:34 | Outpatient (BNVA) | payer MEDICARE, MEDICAID, SELFPAY | PROVIDERS: PCP Nurse Practitioner Family; Visit Provider Nurse Practitioner Psychiatric/Mental Health | DX: F33.2 Major depressive disorder, recurrent severe without psychotic features (principal); F64.9 Gender identity disorder, unspecified; F15.20 Other stimulant dependence, uncomplicated; F11.10 Opioid abuse, uncomplicated; F17.210 Nicotine dependence, cigarettes, uncomplicated | CPT/HCPCS: 99214 ==

== ENCOUNTER 2021-10-11 06:43 | Inpatient (IN) | payer MEDICARE, MEDICAID, SELFPAY ==
[2021-10-11] VITALS (7 sets, daily range): BP systolic 130–218; BP diastolic 81–117; PULSE 63–99; RESP 16–20; TEMP 36.6–36.7; O2SAT 95–100; BMI 38.0
--- NOTE | 2021-10-11 06:47 | CTR_ITS ---
PROCEDURE INFORMATION: Exam: CT Abdomen And Pelvis With Contrast Exam date and time: 10/11/2021 7:16 AM Age: 40 years old Clinical indication: Nausea and vomiting; Abdominal pain; Localized; Upper; Prior surgery; Surgery type: Appy; Additional info: Upper abdominal pain with vomiting TECHNIQUE: Imaging protocol: Computed tomography of the abdomen and pelvis with contrast. Radiation optimization: All CT scans at this facility use at least one of these dose optimization techniques: automated exposure control; mA and/or kV adjustment per patient size (includes targeted exams where dose is matched to clinical indication); or iterative reconstruction. Contrast material: OMNI 300; Contrast volume: 95 ml; Contrast route: INTRAVENOUS (IV); COMPARISON: CT abdomen pelvis w con* [id number] 04/18/2020 6:16 PM RADIATION DOSE METRICS: Total DLP (mGy-cm): 1830.08 FINDINGS: Liver: Normal. No mass. Gallbladder and bile ducts: Normal. No calcified stones. No ductal dilation. Pancreas: Normal. No ductal dilation. Spleen: Normal. No splenomegaly. Adrenal glands: Normal. No mass. Kidneys and ureters: Mild right hydroureteronephrosis secondary to the inflammatory process in the pelvis. Stomach and bowel: No bowel obstruction. There is some mural thickening of the upper rectum and distal sigmoid colon. Appendix: Appendectomy. Intraperitoneal space: Unremarkable. No free air. No significant fluid collection. Vasculature: Unremarkable. No abdominal aortic aneurysm. Lymph nodes: Mildly enlarged mesorectal lymph nodes are seen. Mildly enlarged bilateral pelvic sidewall lymph nodes are seen. Urinary bladder: Unremarkable as visualized. Reproductive: There is a thick rimmed cystic structure in the right adnexa measuring up to 3.9 cm. There may also be small cystic structures in the left adnexa. There is a small amount of surrounding free fluid and inflammatory stranding. Bones/joints: Unremarkable. No acute fracture. Soft tissues: Unremarkable. Other findings: There is inflammatory stranding and ill-defined fluid in the pelvis. CT/CT abdomen pelvis w con* [id number] IMPRESSION: 1. Thick-rimmed cystic structure in the right adnexa with surrounding inflammatory change. Findings could reflect a tubo-ovarian abscess. This results in mild right hydroureteronephrosis. 2. Mural thickening of the upper rectum and distal sigmoid colon may be reactive or could reflect some element of colitis.
--- NOTE | 2021-10-11 06:53 | ED_ITS ---
HPI - Nausea/Vomiting/Diarrhea General: Chief complaint: Nausea/Vomiting/Diarrhea Stated complaint: N/V Time Seen by Provider: 10/11/21 06:47 History of Present Illness: 40-year-old female presents emergency department chief complaint of epigastric abdominal pain chest pain and vomiting is been ongoing for about 5 to 6 hours. Patient reports no other sick or ill contacts reports moderate pain noted to the epigastric region. She reports no fevers or chills reporting no diarrhea with her vomiting reports no blood noted in her vomit, patient recalls no other associated symptoms. She reports a known history of previous appendectomy otherwise no intra-abdominal surgeries patient reports no other associated symptoms. Description of vomiting: food contents Associated nausea: Yes Associated symtoms: Reports fatigue, malaise and nausea; Denies anxiety, change in vision, chest pain, headache(s) or palpitations Review of Systems General: Reports: 10 or more systems reviewed and unremarkable except in HPI and below Const: Reports: fatigue and malaise; Denies: fever(s) or chills Eyes: Denies: change in vision or blurry vision Card: Denies: chest pain or palpitations Resp: Denies: dyspnea or productive cough GI: Reports: abdominal pain, nausea and vomiting : Denies: flank pain Musc: Denies: extremity pain or extremity swelling Skin/Breast: Denies: rash or pruritus Neuro: Denies: headache(s) Psych: Denies: anxiety or depression Amilcar/Lymph: Denies: easy bleeding All/Imm: Denies: urticaria, throat swelling or facial swelling PFSH ED PFSH: Medical History Asthma Benign essential HTN Bilateral primary osteoarthritis of knee DDD (degenerative disc disease) Fatty infiltration of liver Gender dysphoria Hypothyroidism Intervertebral disc disorders with radiculopathy, lumbar region Major depressive disorder, recurrent severe without psychotic features Methamphetamine dependence, episodic Nicotine dependence, cigarettes, uncomplicated Opiate abuse, episodic Psychiatric care Uncontrolled type 2 diabetes mellitus, without long-term current use of insulin Surgical History History of endometrial biopsy (04/13/20) benign endocervical epithelium Hx of foot surgery S/P laparoscopic appendectomy (04/19/20) Family History Mother Diabetes Other Heart disease Social History Smoking and tobacco status: current some day smoker cigarettes Packs smoked per day: 0.5 Years cigarettes smoked: 20 Alcohol intake: current Alcohol intake frequency: holidays/special occasions only Alcohol type: beer and hard liquor Household members: other Details: partner and her mom History of recent travel: No Current gender identity: Male and Other Gender Identity Comment: Goes by Saul, considering formal transition Female Reproductive History: Date of last menstrual period: 06/30/21 Physical Exam Const: COMMON NORMALS: patient oriented x3 and healthy appearing; apparent distress (Mild dry heaves noted on exam appears to have a flat affect.) HENMT: COMMON NORMALS: normocephalic and atraumatic HEAD & SCALP: normocephalic and atraumatic Eye: COMMON NORMALS: Equal, round and reactive pupils present and EOMs intact bilaterally PUPIL: Yes Equal, round and reactive pupils present Neck/C-Spine: COMMON NORMALS: full ROM, supple and no JVD Lymph: LYMPHATIC: no lymphadenopathy noted Chest: COMMONS NORMALS: normal inspection of the chest and normal palpation of entire chest wall Resp: COMMON NORMALS: normal respiratory effort, No retractions and clear to auscultation bilaterally EFFORT & INSPECTION: Yes able to speak in complete sentences and Yes symmetric chest movement AUSCULTATION: clear to auscultation bilaterally Cardio: COMMON NORMALS: no JVD, regular rate and regular rhythm RATE: regular rate RHYTHM: regular rhythm GI: AUSCULTATION: Yes Hyperactive bowel sounds present PALPATION: Yes Tenderness to palpation present (GI) (Mild to moderate noted to the epigastric region otherwise soft nontender no) PERCUSSION: abnormal to percussion and no dullness to percussion : COMMON NORMALS: Yes no CVA tenderness BLADDER/KIDNEY EXAM: Yes no CVA tenderness Back/Pelvis: COMMON NORMALS: no CVA tenderness Extremity: COMMON NORMALS: normal to inspection and full ROM Neuro: COMMON NORMALS: patient oriented x3, CN's II-XII intact bilaterally, moves all extremities and no focal motor deficits Psych: COMMON NORMALS: mental status grossly normal, Normal thought process present, cooperative and normal affect THOUGHT PROCESS: Normal thought process present Skin: COMMON NORMALS: no rashes or lesions noted GENERAL SKIN EXAM: no rashes or lesions noted Course Vital Signs: Vital signs: Vital Signs Temperature 97.9 F 10/11/21 06:44 Pulse Rate 63 10/11/21 09:48 Respiratory Rate 17 10/11/21 14:40 Blood Pressure 218/108 10/11/21 09:48 Pulse Oximetry 100 10/11/21 09:48 MDM - Nausea/Vomiting/Diarrhea Medical Decision Making Due to the patient's symptoms and condition I will establish labwork and imaging will be obtained we will continue to follow due to patient's pre-existing hi story urinalysis urine drug screen ethanol level will be obtained. I will be provide the patient a GI cocktail as well as Zofran CT imaging will be obtained to further rule out patient's underlying reason for her abdominal discomfort we will continue to follow continues to have pain provided her several doses of pain medication which continues to vomit. There is no done on the transvaginal ultrasound that the patient had a right adnexal cyst with there is concerns of Hydroureter as well as questionable neoplasm versus other. The patient did have a small amount of fluid in the abdomen. Discussed the patient's case to Dr. Alaniz who came to the ER department to assess the patient. He independently assessed the patient did a physical exam reporting he believes that the patient's abdominal pain is unrelated to this ovarian issue which she could follow-up with him in the office for further evaluation in which the patient had a pre-existing history noncompliance in which she did not follow-up with him in her office several years before in which she was discharged due to this via alaina cy. We will continue to follow patient still has considerable amount of pain would like to admit the patient to the hospitalist service for further assessment management as she has had several episodes of nonbloody emesis as well. Discussed the patient case with the on-call hospitalist, Dr. Larson as well as on-call urologist Dr. Aguila it agrees patient should be admitted to the hospital service with consultants to consult participate as he is are new findings from her previous scans in 2019 patient was updated in guarded her status is agreeable to admission at this time. Lab Data : 10/11/21 06:30 10/11/21 06:30 Radiology Impressions Abdomen/Pelvis CT 10/11/21 06:47 IMPRESSION: 1. Thick-rimmed cystic structure in the right adnexa with surrounding inflammatory change. Findings could reflect a tubo-ovarian abscess. This results in mild right hydroureteronephrosis. 2. Mural thickening of the upper rectum and distal sigmoid colon may be reactive or could reflect some element of colitis. Transvaginal US 10/11/21 09:50 IMPRESSION: 1. Abnormal RIGHT adnexa. There is a thick wall mass with a central cyst in the RIGHT adnexa. This is probably an abnormal ovary with venous congestion. After reviewing the prior CT differential includes ovarian torsion, complex echogenic cyst and neoplasm resulting and also obstruction of the distal RIGHT ureter. The RIGHT ovary has now rotated into a more anterior position as compared to a prior CT from 2019. Ovarian torsion needs to be excluded. 2. Small amount of free fluid. Notified Jose Alberto Marie at 10/11/2021 12:02 PM. Chest X-Ray 10/11/21 13:13 Impression: Negative chest. Laboratory Results WBC 9.8 10^3/uL (4.0-10.0) 10/11/21 06:30 RBC 5.03 10^6/uL (4.1-5.3) 10/11/21 06:30 Hgb 9.8 g/dL (11.5-15.3) L 10/11/21 06:30 Hct 33.4 % (37.0-47.0) L 10/11/21 06:30 MCV 66.4 fl (81-99) L 10/11/21 06:30 MCH 19.5 pg (28.0-34.0) L 10/11/21 06:30 MCHC 29.3 g/dL (30.0-36.0) L 10/11/21 06:30 RDW 21.2 % (12.1-15.1) H 10/11/21 06:30 Plt Count 483 10^3/cmm (130-400) H 10/11/21 06:30 MPV 9.6 fL (7.4-10.4) 10/11/21 06:30 Neut % (Auto) 84.0 % 10/11/21 06:30 Lymph % (Auto) 12.2 % 10/11/21 06:30 [place] % (Auto) 3.1 % 10/11/21 06:30 Eos % (Auto) 0.1 % 10/11/21 06:30 Baso % (Auto) 0.2 % 10/11/21 06:30 Neut # (Auto) 8.23 10^3/uL (1.8-7.7) H 10/11/21 06:30 Lymph # (Auto) 1.2 10^3/uL (0.8-4.8) 10/11/21 06:30 [place] # (Auto) 0.3 10^3/uL (0.2-0.9) 10/11/21 06:30 Eos # (Auto) 0.0 10^3/uL (0.0-0.8) 10/11/21 06:30 Baso # (Auto) 0.0 10^3/uL (0.0-0.1) 10/11/21 06:30 Nucleated RBC % (auto) 0 % 10/11/21 06:30 Nucleated RBCs # 0.0 /100WBC 10/11/21 06:30 Sodium 135 mmol/L (136-145) L 10/11/21 06:30 Potassium 4.1 mmol/L (3.5-5.1) 10/11/21 06:30 Chloride 101 mmol/L (98-107) 10/11/21 06:30 Carbon Dioxide 22 mmol/L (22-29) 10/11/21 06:30 Anion Gap 16.1 (5-19) 10/11/21 06:30 BUN 20 mg/dL (6-20) 10/11/21 06:30 Creatinine 0.7 mg/dL (0.5-0.9) 10/11/21 06:30 GFR Calculation 93.2 mL/min (90-130) 10/11/21 06:30 Glucose 181 mg/dL (65-115) H 10/11/21 06:30 Calculated Osmolality 287 mOsm/kg (285-295) 10/11/21 06:30 Calcium 9.1 mg/dL (8.5-10.5) 10/11/21 06:30 Total Bilirubin 0.3 mg/dL (0.15-1.2) 10/11/21 06:30 AST 9 U/L (0-32) 10/11/21 06:30 ALT 7 U/L (0-33) 10/11/21 06:30 Alkaline Phosphatase 84 IU/L (35-105) 10/11/21 06:30 Troponin T Gen 5 ng/L 7 ng/L (0-10) 10/11/21 15:21 Troponin T 120 Minute Cancelled 10/11/21 14:50 Delta Troponin T Cancelled 10/11/21 14:50 C-Reactive Protein 11.7 mg/L (0.0-4.9) H 10/11/21 06:30 Total Protein 8.1 g/dL (6.6-8.7) 10/11/21 06:30 Albumin 4.1 g/dL (3.5-5.2) 10/11/21 06:30 Globulin 4.0 g/dL (1.3-4.6) 10/11/21 06:30 Lipase 29 U/L (13-60) 10/11/21 06:30 Procalcitonin 0.07 ng/mL (0-0.5) 10/11/21 15:21 Ser , Semi-Qnt 0.50 mIU/mL 10/11/21 06:30 Urine Color Yellow (Yellow) 10/11/21 14:46 Urine Appearance Sl hazy (CLEAR) 10/11/21 14:46 Urine pH 6 (5-7) 10/11/21 14:46 Ur Specific [place] 1.015 (1.005-1.030) 10/11/21 14:46 Urine Protein Neg (Negative) 10/11/21 14:46 Urine Glucose (UA) Norm (Normal) 10/11/21 14:46 Urine Ketones Negative (Negative) 10/11/21 14:46 Urine Blood 3+ (Negative) H 10/11/21 14:46 Urine Nitrate Negative (Negative) 10/11/21 14:46 Urine Bilirubin Neg (Negative) 10/11/21 14:46 Urine Urobilinogen Norm mg/dL (Negative) 10/11/21 14:46 Ur Leukocyte Esterase 2+ (Negative) H 10/11/21 14:46 Urine RBC 40-50 /hpf (0-2) H 10/11/21 14:46 Urine WBC 25-40 /hpf (0-5) H 10/11/21 14:46 Ur Squamous Epith Cells 0-4 /hpf (0-5) H 10/11/21 14:46 Amorphous Sediment Not Reportable 10/11/21 14:46 Urine Bacteria Trace /hpf (NONE) 10/11/21 14:46 Urine Opiates Screen Negative ng/mL (Negative) 10/11/21 14:46 Ur Barbiturates Screen Negative ng/mL (Negative) 10/11/21 14:46 Ur Phencyclidine Scrn Negative ng/mL (Negative) 10/11/21 14:46 Ur Amphetamines Screen Negative ng/mL (Negative) 10/11/21 14:46 U Benzodiazepines Scrn Negative ng/mL (Negative) 10/11/21 14:46 Urine Cocaine Screen Negative ng/mL (Negative) 10/11/21 14:46 U Marijuana (THC) Screen Positive ng/mL (Negative) H 10/11/21 14:46 Ethyl Alcohol < 10 mg/dL (0-10) 10/11/21 06:30 Critical Care Time Critical Care Time: Critical Care Time: Yes Total Critical Care Time: 60 Attestation: This case had a high probability of a clinically significant, sudden, or life threatening deterioration of this patient's condition which required my full and direct attention, intervention and personal management. Discharge Plan Discharge Patient Disposition: Admitted As Inpatient Admit Provider: Ian Larson Clinical Impression: Intractable nausea and vomiting, Chest pain at rest, Mass of right ovary Condition: Stable Coding Level of Care Code ED Reeling Operator for Lashong Fwd Exam Comprehensive
--- NOTE | 2021-10-11 06:55 | ECG_ITS ---
[facility] Test Date: 2021-10-11 Pat Name: Lorie Chacon Department: Room: Gender: Female [employer] Income: : 1980 Requested By: Jose Alberto Marie Order Number: [id number] Martine MD: Saúl Dahl M.D. Measurements Intervals [place] Rate: 73 P: 48 TX: 177 QRS: 47 QRSD: 89 T: 35 QT: 392 QTc: 432 Interpretive Statements SINUS RHYTHM WITH SINUS ARRHYTHMIA POSSIBLE LEFT ATRIAL ENLARGEMENT [-0.1mV P-WAVE IN V1/V2] Compared to ECG 04/19/2020 05:04:36 T-wave abnormality no longer present Electronically Signed On 10-11-2021 17:56:03 CDT by Saúl Dahl M.D. [id number]
[2021-10-11 06:58] LABS: Basophils % 0.2 %; Eosinophils % 0.1 %; Hematocrit 33.4 % (37.0-47.0); Hemoglobin 9.8 g/dL (11.5-15.3); Lymphocytes # 1.2 10^3/uL (0.8-4.8); Lymphocytes % 12.2 %; Mean Corpuscular HGB Conc 29.3 g/dL (30.0-36.0); Mean Corpuscular Hemoglobin 19.5 pg (28.0-34.0); Mean Corpuscular Volume 66.4 fl (81-99); Mean Platelet Volume 9.6 fL (7.4-10.4); Monocytes # 0.3 10^3/uL (0.2-0.9); Monocytes % 3.1 %; Neutrophils # 8.23 10^3/uL (1.8-7.7); Nucleated Red Blood Cells % 0 %; Platelet Count 483 10^3/cmm (130-400); Red Blood Count 5.03 10^6/uL (4.1-5.3); Red Cell Distribution Width 21.2 % (12.1-15.1); White Blood Count 9.8 10^3/uL (4.0-10.0)
[2021-10-11] MEDS: lidocaine 2% viscous 15 ML, aluminum-mag hydrox-simethicon 30 ML, sucralfate oral liq 1 GM PO (07:05)
[2021-10-11] MEDS: sodium chloride 0.9% 1,000 ML 999 ML IV (07:07)
[2021-10-11] MEDS: ondansetron 2 mg/ML SDV 2 mL 4 MG IVP ×2 (07:07→11:03)
[2021-10-11 07:11] LABS: Alanine Aminotransferase 7 U/L (0-33); Albumin Level 4.1 g/dL (3.5-5.2); Alkaline Phosphatase 84 IU/L (35-105); Anion Gap 16.1 (5-19); Aspartate Amino Transferase 9 U/L (0-32); Blood Urea Nitrogen 20 mg/dL (6-20); C Reactive Protein 11.7 mg/L (0.0-4.9); Calcium 9.1 mg/dL (8.5-10.5); Carbon Dioxide 22 mmol/L (22-29); Chloride 101 mmol/L (98-107); Glomerular Filtration Rate 93.2 mL/min (90-130); Glucose 181 mg/dL (65-115); Lipase 29 U/L (13-60); Osmolality Calculated 287 mOsm/kg (285-295); Potassium 4.1 mmol/L (3.5-5.1); Sodium 135 mmol/L (136-145); Total Bilirubin 0.3 mg/dL (0.15-1.2); Total Protein 8.1 g/dL (6.6-8.7)
[2021-10-11 07:13] LABS: Troponin T (5th) Once 11 ng/L (0-10)
[2021-10-11 07:20] LABS: Alcohol Level < 10 mg/dL (0-10)
[2021-10-11] MEDS: iohexol 300 mg/mL 100 mL Btl IV (07:26)
[2021-10-11] MEDS: ketorolac 30 mg/mL INJ 15 MG IVP (08:56)
--- NOTE | 2021-10-11 09:50 | US_ITS ---
WS: [id number] TRANSVAGINAL PELVIC ULTRASOUND HISTORY: concerns for tubo ovarian abscess on right COMPARISON: Prior ultrasound 03/05/[address] pelvis 10/11/2021 Uterus: 7.8 cm x 4.8 cm x 3.4 cm. Normal size anteverted uterus. There are numerous small tiny cystic areas in the cervix which are present on the prior ultrasound and consistent with small nabothian cy sts. No fibroid. Endometrium: 0.6 cm. Normal endometrium. Right ovary: 5.6 cm x 5.5 cm x 5.5 cm. Abnormal adnexa and RIGHT ovary. As noted on the recent CT the ovary is enlarged with a thick wall. No typical appearance for tubo-ovarian abscess. There is increa sed vascularity within the very peripheral aspect of the ovary. There is a central cyst measuring 3.9 x 3.5 x 3.3 cm. Left ovary: 2.1 cm x 2.2 cm x 2.4 cm. Normal size and vascularity, no cystic or solid masses. Small amount of free fluid in the pelvis. Complex material in the LEFT pelvis is probably hemorrhage. US/US transvaginal [id number] IMPRESSION: 1. Abnormal RIGHT adnexa. There is a thick wall mass with a central cyst in th e RIGHT adnexa. This is probably an abnormal ovary with venous congestion. Afte r reviewing the prior CT differential includes ovarian torsion, complex echogen ic cyst and neoplasm resulting and also obstruction of the distal RIGHT ureter. The RIGHT ovary has now rotated into a more anterior position as compared to a prior CT from 2019. Ovarian torsion needs to be excluded. 2. Small amount of free fluid. Notified Jose Alberto Marie at 10/11/2021 12:02 PM.
[2021-10-11] MEDS: fentaNYL 50 mcg/mL INJ 2mL IVP ×2 (10:34→14:40)
--- NOTE | 2021-10-11 13:13 | XR_ITS ---
WS: [id number] Portable AP upright chest, 10/11/2021 Clinical Data: pain Comparison: PA and lateral chest, 01/29/2018. Findings: No nodules, masses or effusions are seen. The heart is normal. The pulmonary vascularity is not increased. No pneumonia or pneumothorax is seen. There is a dextroscoliosis of the thoracic spin e. XR/XR chest 1V portable [id number] Impression: Negative chest.
[2021-10-11 14:52] LABS: Add Urine Microscopic? YES; Bilirubin Urine Neg (Negative); Blood Urine 3+ (Negative); Glucose Urine UA Norm (Normal); Ketones Urine Negative (Negative); Leukocyte Esterase Urine 2+ (Negative); Nitrate Urine Negative (Negative); Protein Urine Neg (Negative); Specific Gravity, Urine 1.015 (1.005-1.030); Urine Appearance SL Hazy (CLEAR); Urine Color Yellow (Yellow); Urobilinogen Urine Norm (Negative); pH Urine 6 (5-7)
[2021-10-11 15:02] LABS: Amphetamines Screen Urine Negative (Negative); Barbiturates Screen Urine Negative (Negative); Benzodiazepines Screen Urine Negative (Negative); Cocaine Screen Urine Negative (Negative); Opiate Screen Urine Negative (Negative); PCP Screen Urine Negative (Negative); THC Screen Urine Positive (Negative)
--- NOTE | 2021-10-11 15:06 | P.HP_ITS ---
Providers/Chief Complaint Primary Care Provider: Clarice Guido Chief Complaint: N/V History of Present Illness Lorie Chacon is a 40 year old female who presented to the hospital chief complaint of recurrent nausea and vomiting. Patient is stating that her symptoms started last night around midnight when she was watching television, she was at rest. She describes her symptoms as sharp stabbing midsternal chest pain. It was nonradiating, it started before she experienced nausea and vomiting. In total she has had more than 15 episodes of emesis. This morning she decided to come to the hospital for worsening of her chest pain which she describing midsternal sharp, shooting pain. She is also able to pinpoint and lower midsternal area which is tender. She did not experience radiation of pain, diaphoresis, shortness of breath. She does have history of IV drug abuse, her last IV methamphetamine use was about 4 months ago, last marijuana use was yesterday, She has not noticed any fever, diarrhea, she is endorsing dysuria, urinary frequency, abdominal cramps and recurrent emesis. No one else is sick at home, no recent change in medications, currently she is experiencing menstrual bleeding. Her menstrual periods are irregular. She does not take any OCPs. She is living with her female partner, endorsing weight loss secondary to use of IV meth. In the ER she was afebrile, no leukocytosis however CT abdomen pelvis showed concerning adnexal dimensions MPRESSION: 1. Thick-rimmed cystic structure in the right adnexa with surrounding inflammatory change. Findings could reflect a tubo-ovarian abscess. This results in mild right hydroureteronephrosis. 2. Mural thickening of the upper rectum and distal sigmoid colon may be reactive or could reflect some element of colitis. Transvaginal ultrasound Right ovary: 5.6 cm x 5.5 cm x 5.5 cm. Abnormal adnexa and RIGHT ovary. As noted on the recent CT the ovary is enlarged with a thick wall. No typical appearance for tubo-ovarian abscess. There is increased vascularity within the very peripheral aspect of the ovary. There is a central cyst measuring 3.9 x 3.5 x 3.3 cm. Left ovary: 2.1 cm x 2.2 cm x 2.4 cm. Normal size and vascularity, no cystic or solid masses. Small amount of free fluid in the pelvis. Complex material in the LEFT pelvis is probably hemorrhage IMPRESSION: ? 1.? Abnormal RIGHT adnexa. There is a thick wall mass with a central cyst in the RIGHT adnexa. This is probably an abnormal ovary with venous congestion. After reviewing the prior CT differential includes ovarian torsion, complex echogenic cyst and neoplasm resulting and also obstruction of the distal RIGHT ureter. The RIGHT ovary has now rotated into a more anterior position as compared to a prior CT from 2019. Ovarian torsion needs to be excluded. ? 2.? Small amount of free fluid. This case was discussed with Dr. Ruddy Aguila is available if needed for right mild hydronephrosis At the time of my eval, she was stable, comfortable, no active emesis, she asked for Jell-O Dr. Fox planning for diagnostic laparoscopy, we will keep her n.p.o after midnight Review of Systems Const: Reports: body aches; Denies: fever(s) or chills Eyes: Denies: change in vision ENMT: Denies: throat pain Card: Reports: chest pain Resp: Denies: dyspnea GI: Reports: abdominal pain, nausea, vomiting, heartburn, early satiety and GI cramping : Reports: urinary frequency and urinary urgency Musc: Denies: neck pain Skin/Breast: Denies: rash Neuro: Denies: headache(s) Psych: Reports: anxiety Endo: Denies: polyuria Amilcar/Lymph: Denies: easy bruising All/Imm: Denies: urticaria Medications/Allergies Home Medications Medication Instructions Recorded Confirmed Last Taken Type acetaminophen 325 mg tablet 325 mg PO PRN PRN 12/16/19 10/11/21 04/18/20 History (Tylenol) meloxicam 15 mg tablet 15 mg PO DAILY PRN 08/21/21 10/11/21 Unknown History trazodone 150 mg tablet 150 mg PO BEDTIME #30 tab 09/20/21 10/11/21 10/10/21 Rx albuterol sulfate 90 mcg/actuation 2 puff INHALATION Q6H PRN 10/11/21 10/11/21 Unknown History aerosol inhaler paroxetine HCl 20 mg tablet (Paxil) 20 mg PO DAILY 10/11/21 10/11/21 10/10/21 History Allergies Allergy/AdvReac Type Severity Reaction Status Date / Time No Known Allergies Allergy Verified 10/11/21 08:51 PFSH Acute PFSH: Medical History Asthma Benign essential HTN Bilateral primary osteoarthritis of knee DDD (degenerative disc disease) Fatty infiltration of liver Gender dysphoria Hypothyroidism Intervertebral disc disorders with radiculopathy, lumbar region Major depressive disorder, recurrent severe without psychotic features Methamphetamine dependence, episodic Nicotine dependence, cigarettes, uncomplicated Opiate abuse, episodic Psychiatric care Uncontrolled type 2 diabetes mellitus, without long-term current use of insulin Surgical History History of endometrial biopsy (04/13/20) benign endocervical epithelium Hx of foot surgery S/P laparoscopic appendectomy (04/19/20) Family History Mother Diabetes Other Heart disease Social History Smoking and tobacco status: current some day smoker cigarettes Packs smoked per day: 0.5 Years cigarettes smoked: 20 Alcohol intake: current Alcohol intake frequency: holidays/special occasions only Alcohol type: beer and hard liquor Household members: other Details: partner and her mom History of recent travel: No Current gender identity: Male and Other Gender Identity Comment: Goes by Saul, considering formal transition Female Reproductive History: Date of last menstrual period: 06/30/21 Vitals/I&O/Wt Last Vital Signs Temp 97.9 F 10/11/21 06:44 Pulse 63 10/11/21 09:48 Resp 17 10/11/21 14:40 BP 218/108 10/11/21 09:48 Pulse Ox 100 10/11/21 09:48 Weight last 48 hrs Weight 127.006 kg Physical Exam Narrative: Patient was sitting comfortably in her bed Saturating well on room air Reproducible chest pain noted Abdomen is soft no active signs of peritonitis, midepigastric region is tender, she is endorsing cramps in right and left lower quadrants No signs of edema of legs Looks euvolemic Signs of rapid weight loss Not in any distress Nonfocal neuro exam EOMI , PERRLA Skin tattoos, tongue piercing noted Data : 10/11/21 06:30 10/11/21 06:30 A&P Assessment and plan (1) Intractable nausea and vomiting: Status: Acute (2) Chest pain at rest: Status: Acute (3) Mass of right ovary: Status: Acute (4) Opiate abuse, episodic: Status: Chronic (5) Methamphetamine dependence, episodic: Status: Chronic (6) Pyuria: Status: Acute (7) Morbid obesity with BMI of 50.0-59.9, adult: Status: Chronic (8) Asthma: Status: Chronic Qualifiers: Asthma severity: moderate Asthma persistence: persistent Asthma complication type: uncomplicated Qualified Code(s): J45.40 - Moderate persistent asthma, uncomplicated (9) Hypothyroidism: Status: Chronic Qualifiers: Hypothyroidism type: acquired Qualified Code(s): E03.9 - Hypothyroidism, unspecified (10) Gender dysphoria: Status: Chronic Plan Right adnexal mass right adnexal mass Mild right hydroureteronephrosis Patient has pyuria, endorsing signs of UTI Start ceftriaxone Obtain urine culture Drug screen positive for marijuana Differentials include tubo-ovarian abscess, ovarian torsion, malignant mass, benign to complex cyst We will follow up with diagnostic laparoscopy findings Right hydronephrosis without any CIRILO, hematuria + Recurrent nausea vomiting Could be related to use of recreational marijuana She is not septic Does not have signs of peritonitis We will use Reglan, Zofran, check A1c level, diabetic gastroparesis? She lives with a female partner Obtain beta-hCG She has history of dysfunctional uterine bleeding Does not use any OCPs Chest pain Reproducible Midepigastric to midsternal Response to opioids Baseline troponin VII Obtain 2-hour troponin UTI: Start ceftriaxone Clear liquid diet for now N.p.o. after midnight SCDs for DVT prophylaxis Appreciate Dr. Fox's recommendations Attestations Medical Necessity Statement*: Anticipating anticipating more than 2 midnights in the hospital Time Spent in Patient Care: 40minns Coding Level of Care Code Acute Voice Pathologist for g Fwd Diagnoses Intractable nausea and vomiting R11.2 Chest pain at rest R07.9 Mass of right ovary N83.8 Opiate abuse, episodic F11.10 Methamphetamine dependence, episodic F15.20 Pyuria R82.81 Morbid obesity with BMI of 50.0-59.9, adult E66.01; Z68.43 Asthma J45.40 Asthma severity: moderate Asthma persistence: persistent Asthma complication type: uncomplicated Hypothyroidism E03.9 Hypothyroidism type: acquired Gender dysphoria F64.9
[2021-10-11 15:11] LABS: Add Urine Culture? Yes; Bacteria Urine TRACE /hpf; RBC Urine 40-50 /hpf (0-2); Squamous Epithelial Cell Urine 0-4 /hpf (0-5); WBC Urine 25-40 /hpf (0-5)
[2021-10-11 15:46] LABS: Troponin T (5th) Once 7 ng/L (0-10)
[2021-10-11 15:56] LABS: Procalcitonin 0.07 ng/mL (0-0.5)
[2021-10-11 16:31] LABS: Estmated Average Glucose 91; Hemoglobin A1C 4.8 % (4.0-6.0)
--- NOTE | 2021-10-11 16:55 | P.CONIM_ITS ---
Providers/Reason for Consult Consulting Physican/Specialty*: Parag Fox MD/BANANA RIPENING ROOM SUPERVISOR Reason for Consult*: Rught adnexal/ovarian mass Requesting Physcian: Dr. Stokes Attending Physician: Ian Larson MD Primary BANANA RIPENING ROOM SUPERVISOR: Parag Fox MD Primary Care Provider: Clarice Guido BANANA RIPENING ROOM SUPERVISOR Consult HPI History of Present Illness Lorie Chacon is a 40 year old female G1, P0 came to the emergency room with a chief complaint of upper abdominal pain and chest pain. Upon evaluation an abdominal CT scan was performed and right adnexal mass was noted with pelvic congestion and right hydronephrosis. Follow-up ultrasound showed left 5 cm ovarian mass. Patient denies any acute pelvic pain. Present Details Date of Last Menstrual Period: 06/30/21 Review of Systems General: Reports: 10 or more systems reviewed and unremarkable except in HPI and below Const: Reports: fatigue and malaise; Denies: fever(s) or chills Eyes: Denies: change in vision or blurry vision Card: Denies: chest pain or palpitations Resp: Denies: dyspnea or productive cough GI: Reports: abdominal pain, nausea and vomiting : Denies: flank pain or pelvic pain Musc: Denies: extremity pain or extremity swelling Skin/Breast: Denies: rash or pruritus Neuro: Denies: headache(s) Psych: Denies: anxiety or depression Amilcar/Lymph: Denies: easy bleeding All/Imm: Denies: urticaria, throat swelling or facial swelling Medications/Allergies Home Medications Medication Instructions Recorded Confirmed Last Taken Type acetaminophen 325 mg tablet 325 mg PO PRN PRN 12/16/19 10/11/21 04/18/20 History (Tylenol) meloxicam 15 mg tablet 15 mg PO DAILY PRN 08/21/21 10/11/21 Unknown History trazodone 150 mg tablet 150 mg PO BEDTIME #30 tab 09/20/21 10/11/21 10/10/21 Rx albuterol sulfate 90 mcg/actuation 2 puff INHALATION Q6H PRN 10/11/21 10/11/21 Unknown History aerosol inhaler paroxetine HCl 20 mg tablet (Paxil) 20 mg PO DAILY 10/11/21 10/11/21 10/10/21 History Allergies Allergy/AdvReac Type Severity Reaction Status Date / Time No Known Allergies Allergy Verified 10/11/21 08:51 PFSH BANANA RIPENING ROOM SUPERVISOR PFSH: Medical History Asthma Benign essential HTN Bilateral primary osteoarthritis of knee DDD (degenerative disc disease) Fatty infiltration of liver Gender dysphoria Hypothyroidism Intervertebral disc disorders with radiculopathy, lumbar region Major depressive disorder, recurrent severe without psychotic features Methamphetamine dependence, episodic Nicotine dependence, cigarettes, uncomplicated Opiate abuse, episodic Psychiatric care Uncontrolled type 2 diabetes mellitus, without long-term current use of insulin Surgical History History of endometrial biopsy (04/13/20) benign endocervical epithelium Hx of foot surgery S/P laparoscopic appendectomy (04/19/20) Family History Mother Diabetes Other Heart disease Social History Smoking and tobacco status: current some day smoker cigarettes Packs smoked per day: 0.5 Years cigarettes smoked: 20 Alcohol intake: current Alcohol intake frequency: holidays/special occasions only Alcohol type: beer and hard liquor Household members: other Details: partner and her mom History of recent travel: No Current gender identity: Male and Other Gender Identity Comment: Goes by Saul, considering formal transition Other Female Reproductive History: Hx Age of Menarche: 14 Duration of menses: 6-7 days Cycle Length: Irregular bleeding for the past 6 months. Menstrual flow: normal/abnormal: heavy Vitals/I&O/Wt Last Vital Signs Temp 97.9 F 10/11/21 06:44 Pulse 63 10/11/21 09:48 Resp 17 10/11/21 14:40 BP 218/108 10/11/21 09:48 Pulse Ox 100 10/11/21 09:48 10/11/21 10/11/21 10/11/21 06:59 14:59 22:59 Intake Total 1000 / 1000 Balance 1000 / 1000 Weight last 48 hrs Weight 127.006 kg Physical Exam Const: COMMON NORMALS: no acute distress, average body habitus and patient oriented x3 GENERAL APPEARANCE: cooperative and well kempt HENMT: COMMON NORMALS: normocephalic and atraumatic HEAD & SCALP: normocephalic and atraumatic Neck/C-Spine: COMMON NORMALS: full ROM Chest: COMMONS NORMALS: normal inspection of the chest Resp: COMMON NORMALS: normal respiratory effort Cardio: COMMON NORMALS: regular rate and regular rhythm RATE: regular rate RHYTHM: regular rhythm GI: COMMON NORMALS: Soft to palpation INSPECTION: Yes normal to inspection PALPATION: Yes Soft to palpation, Yes Tenderness to palpation present (GI) Details: RLQ (minimal), No Guarding due to palpation present (GI) and No Rigid due to palpation : COMMON NORMALS: Yes no CVA tenderness BLADDER/KIDNEY EXAM: Yes no CVA tenderness Back/Pelvis: COMMON NORMALS: no CVA tenderness Neuro: COMMON NORMALS: patient oriented x3 Psych: APPEARANCE: Yes well kempt Data : 10/11/21 06:30 10/11/21 06:30 US: Radiologist's impression: [address] [place] [address] Ultrasound Report Signed Patient: Lorie Chacon Unit #: [id number] : [id number] Age/Sex: 40 / F ADM Date: 10/11/21 Loc: ER Room/Bed: Attending Dr: Ordering Provider/Ordering MD: Jose Alberto Marie DO Date of Service: 10/11/21 Procedure(s): US transvaginal [id number] Accession Number(s): [id number] Report Number: [id number] WS: [id number] TRANSVAGINAL PELVIC ULTRASOUND HISTORY: concerns for tubo ovarian abscess on right COMPARISON: Prior ultrasound 03/05/[address] pelvis 10/11/2021 Uterus: 7.8 cm x 4.8 cm x 3.4 cm. Normal size anteverted uterus. There are numerous small tiny cystic areas in the cervix which are present on the prior ultrasound and consistent with small nabothian cysts. No fibroid. Endometrium: 0.6 cm. Normal endometrium. Right ovary: 5.6 cm x 5.5 cm x 5.5 cm. Abnormal adnexa and RIGHT ovary. As noted on the recent CT the ovary is enlarged with a thick wall. No typical appearance for tubo-ovarian abscess. There is increased vascularity within the very peripheral aspect of the ovary. There is a central cyst measuring 3.9 x 3.5 x 3.3 cm. Left ovary: 2.1 cm x 2.2 cm x 2.4 cm. Normal size and vascularity, no cystic or solid masses. Small amount of free fluid in the pelvis. Complex material in the LEFT pelvis is probably hemorrhage. US/US transvaginal [id number] IMPRESSION: ? 1.? Abnormal RIGHT adnexa. There is a thick wall mass with a central cyst in the RIGHT adnexa. This is probably an abnormal ovary with venous congestion. After reviewing the prior CT differential includes ovarian torsion, complex echogenic cyst and neoplasm resulting and also obstruction of the distal RIGHT ureter. The RIGHT ovary has now rotated into a more anterior position as compared to a prior CT from 2019. Ovarian torsion needs to be excluded. ? 2.? Small amount of free fluid. ? Notified Jose Alberto Marie at 10/11/2021 12:02 PM. ? Dictated By: Lissa Shah DO Signed By: Lissa Shah DO Signed Date/Time: 10/11/21 1214 DD/ 1148 CT Abd/Pel: Radiologist's impression: CT/CT abdomen pelvis w con* [id number] IMPRESSION: 1. Thick-rimmed cystic structure in the right adnexa with surrounding inflammatory change. Findings could reflect a tubo-ovarian abscess. This results in mild right hydroureteronephrosis. 2. Mural thickening of the upper rectum and distal sigmoid colon may be reactive or could reflect some element of colitis. A&P Assessment and plan (1) Mass of right ovary: Mrs. Chacon 40-year-old female admitted from the emergency room with a chief complaint of chest pain and upper abdominal pain. Upon evaluation a CT scan incidental finding of right ovarian mass measuring 5.6 x 5.5 x 5.5 cm by ultrasound and right mild hydronephrosis. Patient had been previously to our clinic due to abnormal uterine bleeding, she had been scheduled for hysteroscopy and dilation and curettage but the patient canceled surgery and did not show for follow-up visit. Eventually she was discharged from the clinic due to noncompliance with the no-show policy. She was counseled regarding CT scan findings indicating possible differential includes ovarian torsion, complex echogenic cyst and neoplasm resulting and also obstruction of the distal RIGHT ureter and recommendation for diagnostic laparoscopy with possible oophorectomy versus cystectomy. The patient was informed of the risks and benefits of diagnostic laparoscopy and dilation and currettage. Risks included but were not limited to bleeding, infection, and injury to the vagina, bladder, or urethra, internal organs and incomplete resolution of symptoms. The patient expressed understanding of the risks involved, all questions were answered, and the patient consented to the procedure and signed the informed consent. Status: Acute (2) Chest pain at rest: Status: Acute (3) Intractable nausea and vomiting: Status: Acute (4) Opiate abuse, episodic: Status: Chronic (5) Methamphetamine dependence, episodic: Status: Chronic Coding Level of Care Code Acute Hand Roller for [facility] Fwd Diagnoses Mass of right ovary N83.8 Chest pain at rest R07.9 Intractable nausea and vomiting R11.2 Opiate abuse, episodic F11.10 Methamphetamine dependence, episodic F15.20
[2021-10-11 17:44] LABS: Glucose Point of Care 111 mg/dL (70-110)
--- NOTE | 2021-10-11 18:53 | P.CONIM_ITS ---
Providers/Reason For Consult Consulting Physician/Specialty*: Aguila/urology Reason for Consult*: Right ureteral obstruction from pelvic mass Requesting Physician: Dr. Fox Attending Physician: Ian Larson MD Primary Care Provider: Clarice Guido History of Present Illness History of Present Illness Lorie Chacon is a 40 year old female who I met for the first time today in consultation for right ureteral obstruction that appears to be related to a inflammatory appearing right pelvic mass on CT scan. Presented to the emergency department increasing nausea vomiting and right flank pain suspicious for renal colic. She also has other chronic pains. Pelvic ultrasound revealed a mass in the right adnexal area. CT scan was performed that demonstrated very atypical inflammatory process in the adnexal area and evidence of right ureteral obstruction with decreased perfusion of the right kidney and dilation of the renal pelvis as well as the ureter down to the area of the inflammatory mass. Because of the refractory nature of her symptoms she was admitted for further evaluation and treatment. Patient is familiar to Dr. Fox who has recommended diagnostic laparoscopy to evaluate further the abnormal findings. I reviewed her CT scan from 2019 which showed none of the current findings of the inflammatory changes and mass in the right adnexal area. Based on her symptoms and radiographic findings, I have recommended a cystoscopy, right retrograde ureteropyelogram, right ureteral stent placement. I reviewed with Dr. Fox these findings and we will perform under the same anesthesia per his operative time tomorrow. Review of Systems Const: Reports: fever(s), fatigue and malaise Eyes: Denies: change in vision, blurry vision or eye discharge ENMT: Denies: hoarseness Card: Denies: chest pain or palpitations Resp: Denies: dyspnea or productive cough GI: Reports: abdominal pain, nausea and vomiting Musc: Reports: back pain (Consistent with right renal colicky type symptoms) Skin/Breast: Denies: rash, skin tenderness or skin swelling Neuro: Denies: Slurred speech present, difficulty communicating thoughts or seizure-like activity Psych: Reports: anxiety Endo: Denies: flushing Amilcar/Lymph: Denies: easy bruising or easy bleeding All/Imm: Denies: urticaria or acute wheezing Medications/Allergies Home Medications Medication Instructions Recorded Confirmed Last Taken Type acetaminophen 325 mg tablet 325 mg PO PRN PRN 12/16/19 10/11/21 04/18/20 History (Tylenol) meloxicam 15 mg tablet 15 mg PO DAILY PRN 08/21/21 10/11/21 Unknown History trazodone 150 mg tablet 150 mg PO BEDTIME #30 tab 09/20/21 10/11/21 10/10/21 Rx albuterol sulfate 90 mcg/actuation 2 puff INHALATION Q6H PRN 10/11/21 10/11/21 Unknown History aerosol inhaler paroxetine HCl 20 mg tablet (Paxil) 20 mg PO DAILY 10/11/21 10/11/21 10/10/21 History Allergies Allergy/AdvReac Type Severity Reaction Status Date / Time No Known Allergies Allergy Verified 10/11/21 08:51 Current Medications Generic Name Dose Route Start Last Admin Trade Name Freq PRN Reason Stop Dose Admin Insulin Human Lispro 0 unit 10/11/21 18:00 10/11/21 18:16 Insulin Lispro 100 Unit/1 Ml SUBCUT Not Given TIDWM IZZY Protocol PFSH Acute PFSH: Medical History Asthma Benign essential HTN Bilateral primary osteoarthritis of knee DDD (degenerative disc disease) Fatty infiltration of liver Gender dysphoria Hypothyroidism Intervertebral disc disorders with radiculopathy, lumbar region Major depressive disorder, recurrent severe without psychotic features Methamphetamine dependence, episodic Nicotine dependence, cigarettes, uncomplicated Opiate abuse, episodic Psychiatric care Uncontrolled type 2 diabetes mellitus, without long-term current use of insulin Surgical History History of endometrial biopsy (04/13/20) benign endocervical epithelium Hx of foot surgery S/P laparoscopic appendectomy (04/19/20) Family History Mother Diabetes Other Heart disease Social History Smoking and tobacco status: current some day smoker cigarettes Packs smoked per day: 0.5 Years cigarettes smoked: 20 Alcohol intake: current Alcohol intake frequency: holidays/special occasions only Alcohol type: beer and hard liquor Household members: other Details: partner and her mom History of recent travel: No Current gender identity: Male and Other Gender Identity Comment: Goes by Saul, considering formal transition Female Reproductive History: Date of last menstrual period: 06/30/21 Vitals/I&O/Wt Last Vital Signs Temp 97.9 F 10/11/21 06:44 Pulse 87 10/11/21 18:00 Resp 16 10/11/21 18:00 BP 199/117 10/11/21 16:56 Pulse Ox 98 10/11/21 18:00 10/11/21 10/11/21 10/11/21 06:59 14:59 22:59 Intake Total 1000 / 1000 Balance 1000 / 1000 Weight last 48 hrs Weight 280 lb Physical Exam Const: COMMON NORMALS: no acute distress, alert and well nourished GENERAL APPEARANCE: well kempt and well developed ORIENTATION/CONSCIOUSNESS: not confused HENMT: COMMON NORMALS: normocephalic and atraumatic HEAD & SCALP: normocephalic and atraumatic Eye: COMMON NORMALS: conjunctivae normal and no scleral icterus CONJUNCTIVA : Yes conjunctivae normal Neck/C-Spine: COMMON NORMALS: full ROM GENERAL: Yes normal visual inspection Resp: COMMON NORMALS: normal respiratory effort EFFORT & INSPECTION: No labored and No Actively coughing Cardio: COMMON NORMALS: regular rate and regular rhythm RATE: regular rate RHYTHM: regular rhythm GI: OTHER: Right upper quadrant right epigastric tenderness : OTHER: Right CVA tenderness Extremity: OTHER: Good range of motion. Neuro: SENSORIUM/ORIENTATION: Yes alert Psych: COMMON NORMALS: mental status grossly normal APPEARANCE: Yes grossly normal and Yes well kempt ATTITUDE: Yes calm and Yes engaged Skin: COMMON NORMALS: no rashes or lesions noted and no jaundice GENERAL SKIN EXAM: no rashes or lesions noted Data : 10/12/21 09:37 10/12/21 04:09 CT Abd/Pel: My impression: See HPI agree, with dictated report. A&P Assessment and plan (1) Extrinsic ureteral obstruction: Appears to be secondary to inflammatory process in the right adnexa. Status: Acute (2) Renal colic on right side: Secondary to ureteral obstruction at the adnexal level on the right Status: Acute (3) Hydronephrosis of right kidney: Status: Acute Plan Cystoscopy right retrograde right ureteral stent placement tomorrow with Dr. Fox Consult Attestations Medical Necessity Statement: Refractory nausea vomiting and abdominal pain with evidence of right ureteral obstruction from inflammatory pelvic mass of unclear etiology. Surgical intervention plan for relief of right ureteral obstruction with stenting and examination of diagnostic possible therapeutic laparoscopy via WEB MARKETING SPECIALIST Coding Level of Care Code Acute Clinical Trial Associate for [facility] Fwd Exam Comprehensive Diagnoses Extrinsic ureteral obstruction N13.5 Renal colic on right side N23 Hydronephrosis of right kidney N13.30
[2021-10-11 19:15] LABS: Ferritin 17 ng/mL (15-150); Iron 17 ug/dL (37-145); Total Iron Binding Capacity 334 mcg/dl; Unsaturated Iron Binding 317 ug/dL (112-347)
[2021-10-11] MEDS: oxyCODONE 5 mg IR Tab/Cap PO (19:29)
[2021-10-11 19:31] LABS: Vitamin B12 211 pg/mL (232-1245)
[2021-10-11 21:11] LABS: Troponin T (5th) Once 7 ng/L (0-10)
[2021-10-11 21:19] LABS: Glucose Point of Care 161 mg/dL (70-110)
[2021-10-12] VITALS (20 sets, daily range): BP systolic 131–187; BP diastolic 64–106; PULSE 50–92; RESP 12–20; TEMP 34.7–36.8; O2SAT 93–100
--- NOTE | 2021-10-12 | SCC_ITS ---
Procedure done: 1. Cystoscopy with right retrograde ureteropyelogram 2. Right ureteral stent placement (8.5 [place] by 30 cm double-pigtail without string) 45.9 seconds of fluoroscopic guidance, for a cumulative dose of 19.07 mGy, was provided to Dr. Aguila by the radiology department. C-arm images of the abdomen/pelvis were saved for the patient's permanent record. [facility]
[2021-10-12] MEDS: morphine 4 mg/mL SDV 1 mL 2 MG IVP ×2 (01:12→08:37)
[2021-10-12] MEDS: sodium chloride 0.9% 1,000 ML 75 ML IV (01:13)
[2021-10-12 04:15] LABS: Basophils % 0.1 %; Eosinophils % 0.3 %; Hematocrit 30.5 % (37.0-47.0); Hemoglobin 8.9 g/dL (11.5-15.3); Lymphocytes # 2.6 10^3/uL (0.8-4.8); Lymphocytes % 26.2 %; Mean Corpuscular HGB Conc 29.2 g/dL (30.0-36.0); Mean Corpuscular Hemoglobin 19.5 pg (28.0-34.0); Mean Corpuscular Volume 66.9 fl (81-99); Mean Platelet Volume 9.1 fL (7.4-10.4); Monocytes # 0.5 10^3/uL (0.2-0.9); Monocytes % 4.9 %; Neutrophils # 6.84 10^3/uL (1.8-7.7); Neutrophils % 68.2 %; Nucleated Red Blood Cells % 0 %; Platelet Count 439 10^3/cmm (130-400); Red Blood Count 4.56 10^6/uL (4.1-5.3); Red Cell Distribution Width 20.9 % (12.1-15.1)
[2021-10-12 04:41] LABS: Anion Gap 13.6 (5-19); Blood Urea Nitrogen 15 mg/dL (6-20); C Reactive Protein 6.2 mg/L (0.0-4.9); Carbon Dioxide 23 mmol/L (22-29); Chloride 103 mmol/L (98-107); Glomerular Filtration Rate 111.3 mL/min (90-130); Glucose 100 mg/dL (65-115); Magnesium 1.9 mg/dL (1.7-2.3); Osmolality Calculated 283 mOsm/kg (285-295); Potassium 3.6 mmol/L (3.5-5.1); Sodium 136 mmol/L (136-145)
[2021-10-12 06:21] LABS: Glucose Point of Care 104 mg/dL (70-110)
--- NOTE | 2021-10-12 08:00 | SC_ITS ---
WS: [id number] C-arm fluoroscopy for right retrograde ureterogram Clinical Data: Right ureteral obstruction, stent placement Comparison: CT abdomen and pelvis, 10/11/2021 Findings: Contrast material was injected into the right ureter by Dr. Aguila. SC/C-arm FL for Urology Impression: Right retrograde ureterogram.
[2021-10-12 08:11] LABS: HCG Qualitative Urine. Negative (Negative)
[2021-10-12] MEDS: cefTRIAXone 1,000 MG in sodium chloride 0.9% (plus) 50 ML 100 MG IV (08:29)
[2021-10-12] MEDS: PARoxetine 20 mg Tablet PO (08:29)
--- NOTE | 2021-10-12 09:02 | P.PN_ITS ---
Subjective Subjective: Patient is n.p.o. No active emesis since yesterday Patient is noticing feeling slightly better Still endorsing reproducible midepigastric pain in midsternal area Plan for stent placement and diagnostic laparoscopy today Hemodynamically stable Drop in hemoglobin noted, requested repeat H&H Patient experiencing active menstrual bleeding, this is her third day of menstrual bleeding Afebrile Vitals/I&O/Wt Last Vital Signs Temp 97.6 F 10/12/21 07:47 Pulse 72 10/12/21 07:47 Resp 18 10/12/21 08:37 BP 161/79 10/12/21 07:47 Pulse Ox 94 10/12/21 07:47 10/11/21 10/12/21 10/12/21 22:59 06:59 14:59 Intake Total 1800 / 1800 1260 / 3060 Output Total 0 / 0 Balance 1800 / 1800 1260 / 3060 Weight last 48 hrs Weight 127.006 kg Physical Exam Narrative: Pleasant young female Laying in right lateral position Saturating well on room air Abdomen has slight tenderness on deep palpation in mid epigastric region, she is endorsing cramps Otherwise soft no active signs of peritonitis No signs of edema EOMI, PERRLA Nonfocal neuro exam S1, S2 No audible stridor or wheezing Data : 10/12/21 04:09 10/12/21 04:09 A&P Assessment and plan (1) Intractable nausea and vomiting: Status: Acute (2) Chest pain at rest: Status: Acute (3) Mass of right ovary: Status: Acute (4) Opiate abuse, episodic: Status: Chronic (5) Methamphetamine dependence, episodic: Status: Chronic (6) Pyuria: Status: Acute (7) Benign essential HTN: Status: Chronic (8) Asthma: Status: Chronic Qualifiers: Asthma severity: moderate Asthma persistence: persistent Asthma complication type: uncomplicated Qualified Code(s): J45.40 - Moderate persistent asthma, uncomplicated (9) Abnormal uterine bleeding (AUB): Status: Chronic (10) Urinary incontinence: Status: Acute Qualifiers: Urinary Incontinence type: urge incontinence Qualified Code(s): N39.41 - Urge incontinence Plan Intractable nausea vomiting Renal colic Currently on ceftriaxone Afebrile No acute worsening of leukocytosis Nausea vomiting has improved Plan for diagnostic laparoscopy and stent placement around noon Patient is n.p.o. 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 Fox after laparoscopy Patient is endorsing abdominal cramps, third day of menstrual bleeding Right mild hydroureteronephrosis Patient endorsing dysuria, no acute worsening of creatinine, Severe anemia MCV is low Will need iron supplementation, likely related to dysfunctional uterine bleeding Reproducible chest pain, troponin without significant delta Full code Attestations Medical Necessity Statement*: Awaiting intervention today Time Spent in Patient Care: 30min Coding Level of Care Code Acute Final Operations Technician for [facility] Fwd Diagnoses Intractable nausea and vomiting R11.2 Chest pain at rest R07.9 Mass of right ovary N83.8 Opiate abuse, episodic F11.10 Methamphetamine dependence, episodic F15.20 Pyuria R82.81 Benign essential HTN I10 Asthma J45.40 Asthma severity: moderate Asthma persistence: persistent Asthma complication type: uncomplicated Abnormal uterine bleeding (AUB) N93.9 Urinary incontinence N39.41 Urinary Incontinence type: urge incontinence
[2021-10-12 09:48] LABS: Hematocrit 33.1 % (37.0-47.0); Hemoglobin 9.3 g/dL (11.5-15.3)
[2021-10-12 10:04] LABS: Troponin T (5th) Once 9 ng/L (0-10)
[2021-10-12 11:12] LABS: Glucose Point of Care 100 mg/dL (70-110)
--- NOTE | 2021-10-12 11:58 | W.PM.OPSUD ---
Surgery/Procedure H&P Update DATE OF PROCEDURE: October 12, 2021 DATE H&P PERFORMED: 10/11/21 H&P UPDATE INFORMATION: I have reviewed H&P completed within last 30 days and Changes to prior documentation as noted here PREOP DIAGNOSIS: Acute appendicitis PLANNED PROCEDURE: Operation Date: 10/12/21 12:00 Proposed Procedures p Laparoscopy Diagnostic possible oopherectomy(Not Applicable) - MD fransisco Martinez Cystoscopy(Not Applicable) - Vinicius Aguila MD s Retrograde Pyelogram(Right) - MD fransisco Lorenzo Ureteral Stent Placement(Right) - Vinicius Aguila MD
--- NOTE | 2021-10-12 12:20 | ANES.PREANE2 ---
Pre-Anesthetic Assessment Height/Weight: Height 1.83 m Weight 127.006 kg Temp Pulse Resp BP Pulse Ox 97.9 F 88 16 158/106 99 10/12/21 11:43 10/12/21 11:43 10/12/21 11:43 10/12/21 11:43 10/12/21 11:43 Preop Diagnosis: Acute appendicitis Operation Date: 10/12/21 12:00 Proposed Procedures p Laparoscopy Diagnostic possible oopherectomy(Not Applicable) - Parag Fox MD s Cystoscopy(Not Applicable) - Vinicius Aguila MD s Retrograde Pyelogram(Right) - MD fransisco Lorenzo Ureteral Stent Placement(Right) - Vinicius Aguila MD Familial anesthetic complications: None Was Beta Napoleon taken within 24 hours: N/A Was Clonidine taken within 24 hours: N/A Last intake: Intake Last Liquid Date 10/12/21 Last Liquid Time 23:59 Last Solid Date 10/12/21 Last Solid Time 17:00 Social Tobacco and No alcohol Substance abuse Exam alert, oriented x 3 and regular rate & rhythm Airway Submandibular: within normal limits Cervical ROM: within normal limits Mallampati: Class II Dentition: false Pulmonary Asthma and Chronic Obstructive Pulmonary Disease CV/HEM Hypertension Metabolic Morbid Obesity and Thyroid Disease Neuropsych Anxiety and Depression Anesthetic Plan ASA status: 3 Anesthesia: General Medications/Allergies Home Medications Medication Instructions Recorded Confirmed Last Taken Type acetaminophen 325 mg tablet 325 mg PO PRN PRN 12/16/19 10/11/21 04/18/20 History (Tylenol) meloxicam 15 mg tablet 15 mg PO DAILY PRN 08/21/21 10/11/21 Unknown History trazodone 150 mg tablet 150 mg PO BEDTIME #30 tab 09/20/21 10/11/21 10/10/21 Rx albuterol sulfate 90 mcg/actuation 2 puff INHALATION Q6H PRN 10/11/21 10/11/21 Unknown History aerosol inhaler paroxetine HCl 20 mg tablet (Paxil) 20 mg PO DAILY 10/11/21 10/11/21 10/10/21 History Allergies Allergy/AdvReac Type Severity Reaction Status Date / Time No Known Allergies Allergy Verified 10/11/21 08:51 Current Medications Generic Name Dose Route Start Last Admin Trade Name Freq PRN Reason Stop Dose Admin Sodium Chloride 1,000 mls @ 75 mls/hr 10/11/21 16:48 10/12/21 01:13 Sodium Chloride 0.9% IV 75 mls/hr .[id number] IZZY Administration Ceftriaxone Sodium 1,000 mg/ 50 mls @ 100 mls/hr 10/12/21 09:00 10/12/21 09:32 Sodium Chloride IV Infused DAILY IZZY Infusion Protocol Insulin Human Lispro 0 unit 10/11/21 18:00 10/12/21 08:40 Insulin Lispro 100 Unit/1 Ml SUBCUT Not Given TIDWM IZZY Protocol Morphine Sulfate 2 mg 10/11/21 18:42 10/12/21 08:37 Morphine 4 Mg/Ml Sdv 1 Ml IVP 2 mg Q4H PRN Administration SEVERE PAIN Oxycodone HCl 5 mg 10/11/21 18:42 10/11/21 19:29 Oxycodone 5 Mg Ir Tab/Cap PO 5 mg Q6H PRN Administration MODERATE PAIN Paroxetine HCl 20 mg 10/12/21 09:00 10/12/21 08:29 Paroxetine 20 Mg Tablet PO 20 mg DAILY IZZY Administration PFS Anesthesia Medical History Asthma Benign essential HTN Bilateral primary osteoarthritis of knee DDD (degenerative disc disease) Fatty infiltration of liver Gender dysphoria Hypothyroidism Intervertebral disc disorders with radiculopathy, lumbar region Major depressive disorder, recurrent severe without psychotic features Methamphetamine dependence, episodic Nicotine dependence, cigarettes, uncomplicated Opiate abuse, episodic Psychiatric care Uncontrolled type 2 diabetes mellitus, without long-term current use of insulin Surgical History History of endometrial biopsy (04/13/20) benign endocervical epithelium Hx of foot surgery S/P laparoscopic appendectomy (04/19/20) Family History Mother Diabetes Other Heart disease Social History Smoking and tobacco status: current some day smoker cigarettes Packs smoked per day: 0.5 Years cigarettes smoked: 20 Alcohol intake: current Alcohol intake frequency: holidays/special occasions only Alcohol type: beer and hard liquor Household members: other Details: partner and her mom History of recent travel: No Current gender identity: Male and Other Gender Identity Comment: Goes by Saul, considering formal transition Female Reproductive History Date of last menstrual period: 06/30/21 Data Anesthesia : 10/12/21 09:37 10/12/21 04:09 Short CBC 10/11/21 10/12/21 10/12/21 Range/Units 06:30 04:09 09:37 WBC 9.8 10.0 (4.0-10.0) 10^3/uL Hgb 9.8 L 8.9 L 9.3 L (11.5-15.3) g/dL Hct 33.4 L 30.5 L 33.1 L (37.0-47.0) % MCV 66.4 L 66.9 L (81-99) fl Plt Count 483 H 439 H (130-400) 10^3/cmm Neut % (Auto) 84.0 68.2 % Neut # (Auto) 8.23 H 6.84 (1.8-7.7) 10^3/uL BMP 10/11/21 10/12/21 06:30 04:09 Sodium 135 L 136 Potassium 4.1 3.6 Chloride 101 103 Carbon Dioxide 22 23 BUN 20 15 Creatinine 0.7 0.6 Glucose 181 H 100 Calcium 9.1 9.0 Cardiac Enzymes 10/11/21 10/11/21 10/11/21 Range/Units 06:30 14:50 15:21 Troponin T Gen 5 ng/L 11 H 7 (0-10) ng/L Troponin T 120 Minute Cancelled Delta Troponin T Cancelled 10/11/21 10/12/21 Range/Units 20:33 09:37 Troponin T Gen 5 ng/L 7 9 (0-10) ng/L Troponin T 120 Minute Delta Troponin T Liver Function 10/11/21 Range/Units 06:30 Total Bilirubin 0.3 (0.15-1.2) mg/dL AST 9 (0-32) U/L ALT 7 (0-33) U/L Alkaline Phosphatase 84 (35-105) IU/L Albumin 4.1 (3.5-5.2) g/dL Urine 10/11/21 Range/Units 14:46 Urine Color Yellow (Yellow) Urine Appearance Sl hazy (CLEAR) Urine pH 6 (5-7) Ur Specific [place] 1.015 (1.005-1.030) Urine Protein Neg (Negative) Urine Glucose (UA) Norm (Normal) Urine Ketones Negative (Negative) Urine Nitrate Negative (Negative) Urine Bilirubin Neg (Negative) Ur Leukocyte Esterase 2+ H (Negative) Urine RBC 40-50 H (0-2) /hpf Urine WBC 25-40 H (0-5) /hpf Coags 10/11/21 10/12/21 06:30 04:09 C-Reactive Protein 11.7 H 6.2 H Cardiac Studies: No Data to Display
[2021-10-12] MEDS: sodium chloride 0.9% 1,000 ML 30 ML IV (12:45)
[2021-10-12] MEDS: iohexol 300 mg/mL 50 mL Btl (OR ONLY) XX (13:02)
--- NOTE | 2021-10-12 13:12 | P.OP_ITS ---
Operative Report Date of procedure: October 12, 2021 Pre-op diagnosis: Preop Diagnosis right ureteral obstruction, extrinsic Post-op diagnosis: Right ureteral obstruction, extrinsic Procedure done: 1. Cystoscopy with right retrograde ureteropyelogram 2. Right ureteral stent placement (8.5 [place] by 30 cm double-pigtail without string) Specimens removed/disposition: None Pathology: None Surgeon: Mingo Estimated blood loss: None Urine output: Not measured Complications: None Findings: 1. Inflammatory changes on the right posterolateral bladder wall 2. Right retrograde ureteropyelogram demonstrated a narrowed area in the expected location of the right distal ureter based on the CT scan findings. Proximal ureteral dilation. 3. 8.5 [place] by 30 cm double-pigtail stent was placed without difficulty. Brief History: Lorie is a very pleasant 40-year-old white female admitted through the emergency department yesterday for refractory right renal colic, nausea and vomiting, abdominal pain, and CT scan findings of an inflammatory process in the right adnexal area that was not present on CT scan in 2019. It appeared that the process in the adnexal area was the source of the obstruction of the ureter based on level of dilation. She was scheduled for diagnostic laparoscopy by Dr. Fox and I recommended a stent placement based on her symptomatology under the same anesthesia. Procedure: After routine preoperative evaluation examination and obtaining of informed consent she was taken to the operating suite on 10/12/2021 where general anesthesia was administered without difficulty after appropriate timeout was performed, SCDs confirmed to be functioning, preoperative antibiotics administered, beta-danya protocol confirmed. Prepped and draped in usual sterile fashion in dorsolithotomy position paying careful attention to avoiding pressure points. 21 [place] Helenian cystoscope with 30 degree lens was introduced into urethra meatus and advanced to the bladder to videoscopy. The bladder wall showed multiple areas of diffuse inflammatory changes consistent with some intramural full inflammation over the area of the inflammatory process identified on CT scan. This corresponded with the right posterolateral bladder wall. The right ureteral orifice appeared normal. No other lesions were seen other than the inflammatory changes. An 8 [place] cone-tip catheter was intubated to the right ureteral orifice for right retrograde ureteropyelogram which demonstrated normal distal ureter course and caliber, and area of narrowing in the ureter consistent with the pelvic inflammatory masses location and then proximal to that dilated ureter demonstrating otherwise normal course. The pyelocalyceal system was as well dilated. A flexible tip guidewire was advanced up the right ureter easily bypassing the narrowed ureteral area and curling in the upper pole calyx which was highlighted with contrast. An 8.5 [place] Helenian by 30 cm double-pigtail stent was advanced over the guidewire through the cystoscope into appropriate position as confirmed via fluoroscopy and cystoscopy with a proximal curl and distal curl after removal of the wire. Stent was confirmed to be draining and the procedure was completed. She tolerated the procedure well without complications. Patient was then turned over to Dr. Fox for his portion of the procedure. Please see his dictation under separate cover. PLANS: 1. Maintain stent until full determination of the extent and involvement of the right adnexal mass.
--- NOTE | 2021-10-12 13:14 | PC.CHAP ---
Pastoral Care Encounter/Spiritual Assessment Type of Contact [] Declined child support investigator visit [] Patient/Family/Request visit [] Outpatient visit [] Follow-up visit [] Physician referral [] Code/Alert [xx] Routine visit [] Staff referral [] Actively dying [] Patient sleeping [] Family support [] [] Out of room [] Palliative care [] [] Receiving care in room [] Pre-surgical visit [] Trauma [] Long length of stay [] ICU visit [] Other: Relational/Emotional Strength [xx] Patient feels connected with others/family/visitors/staff [] Distress [] Loneliness/isolation [] Abandonment Spirituality of Patient [] Person of Becky [] Attends Catholic of their Becky [xx] Believes in Prayer [] Reads Bible or Nondenominational materials [] There are Spiritual issues to be addressed Hair Assistant Interventions [xx] Prayer [xx] Active listening [xx] Non-anxious presence [] Spiritual/emotional support [] Crisis/trauma care [] Spiritual counseling [] Bereavement support [] Provided bereavement packet [xx] Provided Bible/devotional materials [] Provided toy/stuffed animal, coloring book to patient or family member [] Provided Communion [] Anointing/Alto [] Salvation [xx] Completed spiritual assessment [] Other: Impact on Illness or Injury [] Angry [] Fearful [xx] Anxious [] Often cries [] Exhaustion [] Unable to work [] Unable to attend episcopal [] Unable to walk/stand [] Unable to read [] Unable to drive [] Unable to eat/drink [] Unable to sleep [] Unable to be with family [] Patient intubated [] Other: Summary Patient was jittery and nervous. She did not feel like talking but did agree to prayer. Time spent with patient 4 minutes
--- NOTE | 2021-10-12 14:20 | P.OP_ITS ---
Operative Report Date of procedure: October 12, 2021 Pre-op diagnosis: Preop Diagnosis Acute appendicitis Preop Diagnosis right ureteral obstruction, extrinsic Post-op diagnosis: Multiple extensive dense pelvic adhesions Post-op findings: Multiple extensive dense pelvic adhesions Procedure done: Diagnostic laparoscopy. Endocervical curettage. Specimens removed/disposition: Endocervical curettings Surgeon: Parag Fox MD Estimated blood loss (mL): 5 Complications: None Findings: Multiple dense pelvic adhesions. Procedure: After informed consent, the patient was taken to the operating room where general anesthesia was administered. Dr. Aguila urologist perform a cy stoscopy and placed a ureter stent to the right kidney due to right kidney hydronephrosis. The patient was examined under anesthesia and found to have a normal uterus with normal adnexa. She was placed in the dorsal lithotomy position and prepped and draped in sterile fashion. Pre-Procedure Time-Out verifying the correct patient identity, correct procedure verified with consent, correct site and side, correct patient position, availability of correct implants and any special equipment or requirements was performed and acknowledge by the OR team. A weighted speculum was placed in the vagina, and the anterior lip of cervix was grasped with the single toothed tenaculum. A uterine manipulator was advanced into the endocervical. Tenaculum was removed after uterine manipulator was secured. The speculum was removed from the vagina. An intraumbilical incision was made with a scalpel. While tenting up on the abdomen, a Verres needle with sleeve was admitted into the intra-abdominal cavity. A saline drop test was performed and noted to be within normal limits. Pneumoperitoneum was attained with 4 liters of carbon dioxide. The Verres needle was removed. A 5 mm trocar and sleeve were admitted into the abdomen and laparoscopic confirmation of location was achieved, A second incision was made 3 cm above the symphysis pubis, and a 5 mm trocar and sleeve were admitted into the abdomen under direct, laparoscopic visualization without complication. A 5 mm blunt probe was advanced through the second trocar sleeve, and light manipulation. A survey revealed normal abdominal anatomy but pelvic survey shows dense multiple adhesion (frozen pelvis) involving bowels, uterus adnexas and ovaries bilaterally. Ovaries could not be identified and only uterine fundus was identified. Do to suspicion of possible malignancy and risk of bowel perforation the decision was made to refer the patient to [facility] [facility] oncology. The Carbon dioxide was allowed to escape from the abdomen. The instruments were removed, and skin cover with a bandage. The instruments were removed from the vagina, and excellent hemostasis was noted. The patient tolerated the procedure well, and sponge, lap and needle count were correct times two. The patient taken to the recovery room in good condition.
[2021-10-12 17:07] LABS: Glucose Point of Care 123 mg/dL (70-110)
[2021-10-12] MEDS: ketorolac 30 mg/mL INJ IVP ×2 (17:36→22:00)
--- NOTE | 2021-10-12 17:40 | ANE.PACU2 ---
Inpatient post-anesthesia follow up: Airway intact: Yes Vital signs: Temperature 94.5 F Pulse Rate 81 Respiratory Rate 20 Blood Pressure 159/79 Pulse Oximetry 97 Oxygen Delivery Me thod Room Air Oxygen Flow Rate Fraction of Inspir ed Oxygen Hydration adequate: Yes Nausea and vomiting: No Pain level: 3 Mental status: Baseline
[2021-10-12] MEDS: dextrose 5%-lactated ringers 1,000 ML 125 ML IV (17:48)
[2021-10-12] MEDS: docusate sodium 100 mg Capsule PO (17:49)
[2021-10-12] MEDS: HYDROcodone-acetaminophen 5-325 mg Tablet PO (17:49)
[2021-10-12 21:24] LABS: Glucose Point of Care 231 mg/dL (70-110)
[2021-10-13] VITALS (7 sets, daily range): BP systolic 110–153; BP diastolic 65–87; PULSE 68–90; RESP 16–117; TEMP 36.4–36.9; O2SAT 97–99
[2021-10-13] MEDS: trazodone 150 mg Tablet PO (00:01)
[2021-10-13] MEDS: dextrose 5%-lactated ringers 1,000 ML 125 ML IV (02:07)
[2021-10-13] MEDS: ketorolac 30 mg/mL INJ IVP ×2 (03:10→08:56)
[2021-10-13 05:40] LABS: Hematocrit 27.4 % (37.0-47.0); Hemoglobin 7.7 g/dL (11.5-15.3); Mean Corpuscular HGB Conc 28.1 g/dL (30.0-36.0); Mean Corpuscular Volume 67.7 fl (81-99); Mean Platelet Volume 9.5 fL (7.4-10.4); Platelet Count 404 10^3/cmm (130-400); Red Blood Count 4.05 10^6/uL (4.1-5.3); Red Cell Distribution Width 20.9 % (12.1-15.1); White Blood Count 10.3 10^3/uL (4.0-10.0)
[2021-10-13] MEDS: HYDROcodone-acetaminophen 5-325 mg Tablet PO ×4 (05:48→18:24)
[2021-10-13 06:27] LABS: Glucose Point of Care 134 mg/dL (70-110)
[2021-10-13 08:00] LABS: Hematocrit 28.1 % (37.0-47.0); Hemoglobin 7.7 g/dL (11.5-15.3)
[2021-10-13] MEDS: iron sucrose 200 MG in sodium chloride 0.9% (100 ml) 100 ML 220 MG IV (08:54)
[2021-10-13] MEDS: docusate sodium 100 mg Capsule PO ×3 (08:56→18:25)
--- NOTE | 2021-10-13 08:59 | PM.PN ---
Subjective Subjective: Noted drop in hemoglobin I did speak with Dr. Fox who told me about the findings during diagnostic laparoscopy, Patient is stating that her menstrual bleeding flow has reduced She did not endorse any worsening of abdominal pain or chest pain Vitals/I&O/Wt Last Vital Signs Temp 97.6 F 10/13/21 07:21 Pulse 72 10/13/21 07:21 Resp 16 10/13/21 07:21 BP 123/87 10/13/21 07:21 Pulse Ox 99 10/13/21 07:21 10/12/21 10/13/21 10/13/21 22:59 06:59 14:59 Intake Total 120 / 2170 1999 Balance 120 / 2165 1999 Physical Exam Narrative: Patient was alert she was asleep On awakening she was able to tell me that there is no worsening of abdominal or chest pain Nonfocal neuro exam S1, S2 Abdomen is soft no signs of peritonitis No signs of edema Saturating well on room air Urinary Catheter Management: Hinkle Latex: Cath Placed During This Visit: yes Urinary Catheter Date of Insertion: 10/12/21 Urinary Catheter Time of Insertion: 13:27 Data : 10/13/21 07:36 10/12/21 04:09 Micro: Microbiology 10/11/21 14:46 Urine Culture - Preliminary Urine,Clean Catch Gram Negative Rods A&P Assessment and plan (1) Hydronephrosis of right kidney: Status: Acute (2) Renal colic on right side: Status: Acute (3) Extrinsic ureteral obstruction: Status: Acute (4) Intractable nausea and vomiting: Status: Acute (5) Chest pain at rest: Status: Acute (6) Mass of right ovary: Status: Acute (7) Opiate abuse, episodic: Status: Chronic (8) Methamphetamine dependence, episodic: Status: Chronic (9) Pyuria: Status: Acute (10) Morbid obesity with BMI of 50.0-59.9, adult: Status: Chronic (11) Fatty infiltration of liver: Status: Chronic Plan Intractable nausea vomiting: Improved Diagnostic laparoscopy with significant adhesions, concern for malignancy, Dr. Fox recommended outpatient follow-up with [facility] oncologist in [place] Acute on chronic anemia Low iron, low B12 We will give her 1 bag of iron, start B12 supplementation, Repeat H&H Hematuria, with concern for malignancy with involvement of the dome of the bladder not sure if this is related to significant hematuria at this point Would monitor her because of drop in hemoglobin, she is not ready to be discharged Check FOBT Status post diagnostic laparoscopy and ureteral stent placement 10/12 She is tolerating her diet Full code Hold anticoagulating agent I spoke with Dr. Fox, he is planning to be here around 11 to evaluate the patient, follow-up with recommendations, Transnaemic acid? UTI: Continue ceftriaxone Attestations Medical Necessity Statement*: Continue medical management Time Spent in Patient Care: 20mins Coding Level of Care Code Acute Specialty Foods Cook for Chg Fwd Diagnoses Hydronephrosis of right kidney N13.30 Renal colic on right side N23 Extrinsic ureteral obstruction N13.5 Intractable nausea and vomiting R11.2 Chest pain at rest R07.9 Mass of right ovary N83.8 Opiate abuse, episodic F11.10 Methamphetamine dependence, episodic F15.20 Pyuria R82.81 Morbid obesity with BMI of 50.0-59.9, adult E66.01; Z68.43 Fatty infiltration of liver K76.0
[2021-10-13] MEDS: cyanocobalamin 1,000 mcg/mL SDV 1000 MCG IM (10:40)
--- NOTE | 2021-10-13 11:16 | PM.PN ---
Subjective Subjective: Mrs. Chacon 30-year-old female status post diagnostic laparoscopy postoperative day 1. Vitals/I&O/Wt Last Vital Signs Temp 97.7 F 10/13/21 10:48 Pulse 77 10/13/21 10:48 Resp 16 10/13/21 10:48 BP 110/70 10/13/21 10:48 Pulse Ox 97 10/13/21 10:48 10/12/21 10/13/21 10/13/21 22:59 06:59 14:59 Intake Total 120 / 2170 1999 4170 0 / 910 Balance 120 / 2165 1999 / 4160 / 910 Physical Exam Narrative: GA: Alert and oriented ?3. HEENT: WNL. Heart: Regular rate and rhythm. Lungs: Clear to auscultation bilaterally. Abdomen: Bowel sounds present, minimal tenderness, incision clean and dry, no redness, pain or edema. CABLE TOOL DRILLER: spoting bleeding. Extremities: No edema, no cyanosis, no calves pain. Urinary Catheter Management: Hinkle Latex: Cath Placed During This Visit: yes Urinary Catheter Date of Insertion: 10/12/21 Urinary Catheter Time of Insertion: 13:27 Data : 10/13/21 07:36 10/12/21 04:09 Micro: Microbiology 10/11/21 14:46 Urine Culture - Final Urine,Clean Catch Escherichia coli A&P Assessment and plan (1) Mass of right ovary: Mrs. Chacon 40-year-old female admitted from the emergency room with a chief complaint of chest pain and upper abdominal pain. Upon evaluation a CT scan incidental finding of right ovarian mass measuring 5.6 x 5.5 x 5.5 cm by ultrasound and right mild hydronephrosis. Cystoscopy and stent placement by Dr. Aguila on the right ureter was performed without complication. Followed by diagnostic laparoscopy showing extensive dense adhesions in the pelvis (frozen pelvis) and involving bowel, the uterus and adnexa bilaterally making it difficult to assess the pelvis. Plan dilation and curettage was not possible due to a stenosis on the cervix. Scant tissue from the cervix was obtained and sent to pathology. Due to the appearance of the bladder dome and pelvis anatomy, and suspected for possible malignancy referral to [facility] oncology in [place] was recommended. She is afebrile and hemodynamically stable. Tolerating diet well. However she had a drop in hemoglobin. She was anemic preop with a hemoglobin of 9.3, which decreased to 7.7 mg/dl. Blood transfusion was ordered. Tranexamic acid recommended. Ideally abnormal uterine bleeding was treated with IV estrogen however with the possibility of malignancy, with a differential uterine carcinoma, TXA is a safer choice of therapy. Status: Acute (2) Chest pain at rest: Status: Acute (3) Intractable nausea and vomiting: Status: Acute (4) Opiate abuse, episodic: Status: Chronic (5) Methamphetamine dependence, episodic: Status: Chronic Attestations Medical Necessity Statement*: In my professional opinion per admitting diagnosis Coding Level of Care Code Acute Machined Parts Metal Sprayer for [facility] Fwd Diagnoses Mass of right ovary N83.8 Chest pain at rest R07.9 Intractable nausea and vomiting R11.2 Opiate abuse, episodic F11.10 Methamphetamine dependence, episodic F15.20
--- NOTE | 2021-10-13 13:06 | PM.PN ---
Subjective Subjective: Urology follow-up: Postop day #1 right ureteral stent placement for extrinsic ureteral obstruction secondary to pelvic mass. Has had some typical stent symptoms. Blood in the urine as expected from the stent. No other significant complaints. Hemoglobin decreased. Had a unit of blood. Reviewed the intraoperative findings with her. Discussed the importance of having the stent removed at some point but this will be contingent upon additional treatment pending in [place]. I asked her to call the office if there is any question about the stent moving forward postop. I do expect that if she has [facility] oncology involved stent can be managed accordingly. Vitals/I&O/Wt Last Vital Signs Temp 97.7 F 10/13/21 10:48 Pulse 77 10/13/21 10:48 Resp 16 10/13/21 10:48 BP 110/70 10/13/21 10:48 Pulse Ox 97 10/13/21 10:48 10/12/21 10/13/21 10/13/21 22:59 06:59 14:59 Intake Total 120 / 2170 1999 4170 910 / 910 Balance 120 / 2165 1999 / 4165 910 / 910 Physical Exam Const: COMMON NORMALS: no acute distress and patient oriented x3 Neck/C-Spine: COMMON NORMALS: full ROM Resp: COMMON NORMALS: normal respiratory effort EFFORT & INSPECTION: Yes able to speak in complete sentences Extremity: NARRATIVE EXTREMITY EXAM: Good range of motion. Neuro: COMMON NORMALS: patient oriented x3 OTHER: No focal defects Psych: COMMON NORMALS: Normal thought process present APPEARANCE: Yes grossly normal MOOD & AFFECT: Yes euthymic mood THOUGHT PROCESS: Normal thought process present MEMORY/COGNITION: Yes memory grossly intact Urinary Catheter Management: Hinkle Latex: Cath Placed During This Visit: yes Urinary Catheter Date of Insertion: 10/12/21 Urinary Catheter Time of Insertion: 13:27 Data : 10/13/21 07:36 10/12/21 04:09 Micro: Microbiology 10/11/21 14:46 Urine Culture - Final Urine,Clean Catch Escherichia coli A&P Assessment and plan (1) Hydronephrosis of right kidney: Secondary to pelvic mass with obstruction of the ureter extrinsically. Status post 8.5 x 30 cm double-pigtail right ureteral stent without string. Status: Acute (2) Extrinsic ureteral obstruction: Secondary to pelvic mass. Status: Acute (3) Pelvic mass in female: See Dr. Fox's note. Concern for potential malignant process with extrinsic ureteral obstruction. Status: Acute Plan Leave the stent in place until definitive treatment of the pelvic mass. Encouraged her to confirm stent removal after treatment that is pending at this point is completed. Will be available as needed per [facility] oncology. Attestations Medical Necessity Statement*: See attending Coding Level of Care Code Acute Rehabilitation Construction Specialist for Milagro Lao Diagnoses Hydronephrosis of right kidney N13.30 Extrinsic ureteral obstruction N13.5 Pelvic mass in female R19.00
[2021-10-13 15:13] LABS: Hematocrit 32.1 % (37.0-47.0)
[2021-10-13 20:49] LABS: Glucose Point of Care 126 mg/dL (70-110)
[2021-10-13 21:27] LABS: Hematocrit 29.6 % (37.0-47.0); Hemoglobin 8.2 g/dL (11.5-15.3)
[2021-10-14] MEDS: trazodone 150 mg Tablet PO (00:12)
[2021-10-14] MEDS: HYDROcodone-acetaminophen 5-325 mg Tablet PO ×5 (00:12→20:36)
--- NOTE | 2021-10-14 00:18 | PC.NURSE ---
NOTE Care of pt taken over by Leandro Turcios for remainder of shift. Had requested po Trazadone to be given when she could get her Hydrocodone again. Meds just given. Has been playing games on phone much of the evening. c/o abd pain/tenderness. Incisions to umbilicus and medial lower abdomen C&D with dermabond closure.
[2021-10-14 04:00] VITALS: BP 92/54; PULSE 70; RESP 16; TEMP 36.8; O2SAT 98
[2021-10-14 05:30] LABS: Basophils % 0.2 %; Eosinophils # 0.2 10^3/uL (0.0-0.8); Eosinophils % 3.2 %; Hematocrit 27.7 % (37.0-47.0); Hemoglobin 7.8 g/dL (11.5-15.3); Lymphocytes # 2.1 10^3/uL (0.8-4.8); Lymphocytes % 31.8 %; Mean Corpuscular HGB Conc 28.2 g/dL (30.0-36.0); Mean Corpuscular Hemoglobin 19.4 pg (28.0-34.0); Mean Corpuscular Volume 68.7 fl (81-99); Mean Platelet Volume 9.1 fL (7.4-10.4); Monocytes # 0.4 10^3/uL (0.2-0.9); Monocytes % 6.2 %; Neutrophils # 3.87 10^3/uL (1.8-7.7); Neutrophils % 58.3 %; Nucleated Red Blood Cells % 0 %; Platelet Count 377 10^3/cmm (130-400); Red Blood Count 4.03 10^6/uL (4.1-5.3); Red Cell Distribution Width 21.1 % (12.1-15.1); White Blood Count 6.6 10^3/uL (4.0-10.0)
[2021-10-14 05:53] LABS: Anion Gap 11.4 (5-19); Blood Urea Nitrogen 19 mg/dL (6-20); Calcium 8.1 mg/dL (8.5-10.5); Carbon Dioxide 21 mmol/L (22-29); Chloride 110 mmol/L (98-107); Glomerular Filtration Rate 79.9 mL/min (90-130); Glucose 112 mg/dL (65-115); Osmolality Calculated 291 mOsm/kg (285-295); Potassium 3.4 mmol/L (3.5-5.1); Sodium 139 mmol/L (136-145)
[2021-10-14 06:44] VITALS: BP 164/89
[2021-10-14 07:09] VITALS: BP 114/65; PULSE 63; RESP 14; TEMP 36.6; O2SAT 97
[2021-10-14] MEDS: docusate sodium 100 mg Capsule PO ×2 (08:27→17:48)
[2021-10-14 09:07] LABS: Hematocrit 28.5 % (37.0-47.0); Hemoglobin 8.1 g/dL (11.5-15.3)
--- NOTE | 2021-10-14 09:18 | PC.SOCIAL ---
IMM Update Pg. 2 of IMM Updated and reviewed with patient, who verbalized understanding. Copy provided.
--- NOTE | 2021-10-14 10:06 | PM.PN ---
Subjective Subjective: In response of H&H, repeat H&H today Patient is stating that she is not using any pads, menstrual bleeding has been minimal, no active GI bleed, FOBT is pending Hemodynamically stable No active complaints or concerns She is waiting to be discharged I would like to monitor her 1 more day as H&H has been labile Vitals/I&O/Wt Last Vital Signs Temp 97.9 F 10/14/21 07:09 Pulse 63 10/14/21 07:09 Resp 14 10/14/21 07:09 BP 114/65 10/14/21 07:09 Pulse Ox 97 10/14/21 07:09 10/13/21 10/14/21 10/14/21 22:59 06:59 14:59 Intake Total 725.5 / 1979.0 120 / 120 Balance 725.5 / 1979.0 120 / 120 Physical Exam Narrative: Pleasant cooperative female Laying comfortably in her bed Saturating well on room air Abdomen is soft No signs of peritonitis S1, S2 Nonfocal neuro exam Saturating well on room air Urinary Catheter Management: Hinkle Latex: Cath Placed During This Visit: yes Urinary Catheter Date of Insertion: 10/12/21 Urinary Catheter Time of Insertion: 13:27 Data : 10/14/21 08:10 10/14/21 05:10 Micro: Microbiology 10/11/21 14:46 Urine Culture - Final Urine,Clean Catch Escherichia coli A&P Assessment and plan (1) Pelvic mass in female: Status: Acute (2) Hydronephrosis of right kidney: Status: Acute (3) Renal colic on right side: Status: Acute (4) Extrinsic ureteral obstruction: Status: Acute (5) Intractable nausea and vomiting: Status: Acute (6) Hematuria: Status: Acute (7) Acute on chronic anemia: Status: Acute Plan Marijuana induced intractable nausea vomiting: Resolved Renal colic: Resolved Hydronephrosis status post ureteral stent placement, appreciate Dr. Aguila's recommendation For UTI continue ceftriaxone Afebrile No worsening leukocytosis Acute on chronic microcytic anemia, low vitamin B12 and low iron, started supplementation Hematuria noted Inadequate response of 1 unit PRBC transfusion which was given on 10/13, I would like to monitor her 1 more day in the hospital Patient will follow up with [facility] oncologist Dr. Pruett, Appreciate Dr. Fox's recommendations Patient is on regular diet Full code DVT prophylaxis contraindicated Continue SCDs Attestations Medical Necessity Statement*: Continue hospitalization Time Spent in Patient Care: 20mins Coding Level of Care Code Acute Vocational Rehabilitation Specialist for Chg Fwd Diagnoses Pelvic mass in female R19.00 Hydronephrosis of right kidney N13.30 Renal colic on right side N23 Extrinsic ureteral obstruction N13.5 Intractable nausea and vomiting R11.2 Hematuria R31.9 Acute on chronic anemia D64.9
--- NOTE | 2021-10-14 11:24 | PC.NURSE ---
patient refused accu check. states not a diabetic
[2021-10-14 11:26] VITALS: BP 125/71; PULSE 83; RESP 18; TEMP 36.4; O2SAT 98
--- NOTE | 2021-10-14 11:58 | P.PN_ITS ---
Subjective Subjective: Mrs. Chacon 30-year-old female status post diagnostic laparoscopy postoperative day 2. No complains. Pain under control. Refers menses. Vitals/I&O/Wt Last Vital Signs Temp 97.6 F 10/14/21 11:26 Pulse 83 10/14/21 11:26 Resp 18 10/14/21 11:26 BP 125/71 10/14/21 11:26 Pulse Ox 98 10/14/21 11:26 10/13/21 10/14/21 10/14/21 22:59 06:59 14:59 Intake Total 725.5 / 1979.0 1120 / 1120 Balance 725.5 / 1979.0 1120 / 1120 Physical Exam Narrative: GA: Alert and oriented ?3. HEENT: WNL. Heart: Regular rate and rhythm. Lungs: Clear to auscultation bilaterally. Abdomen: Bowel sounds present, minimal tenderness, incision clean and dry, no redness, pain or edema. SEX CRIMES DETECTIVE: bleeding. Extremities: No edema, no cyanosis, no calves pain. Urinary Catheter Management: Hinkle Latex: Cath Placed During This Visit: yes Urinary Catheter Date of Insertion: 10/12/21 Urinary Catheter Time of Insertion: 13:27 Data : 10/14/21 08:10 10/14/21 05:10 Micro: Microbiology 10/11/21 14:46 Urine Culture - Final Urine,Clean Catch Escherichia coli A&P Assessment and plan (1) Mass of right ovary: Mrs. Chacon 40-year-old female status post right ureter stent placement and diagnostic laparoscopy postoperative day 2. She is afebrile and hemodynamically stable. Tolerating diet well. However hemoglobin fluctuating. She is post blood transfusion day 1. Tranexamic acid given to treat the vaginal bleeding. She refers she still with her menses. CBC in AM recommended. Status: Acute (2) Extrinsic ureteral obstruction: Status: Acute (3) Acute on chronic anemia: Status: Acute (4) Hydronephrosis of right kidney: Status: Acute (5) Opiate abuse, episodic: Status: Chronic (6) Methamphetamine dependence, episodic: Status: Chronic Plan Continue observation. Repeat CBC in the morning. Attestations Medical Necessity Statement*: In my professional opinion per admitting diagnosis Coding Level of Care Code Acute Health Evaluator for Chg Fwd History Expanded Problem Focused Exam Expanded Problem Focused Medical Decision Making Low Complexity Diagnoses Mass of right ovary N83.8 Opiate abuse, episodic F11.10 Methamphetamine dependence, episodic F15.20 Acute on chronic anemia D64.9 Hydronephrosis of right kidney N13.30 Extrinsic ureteral obstruction N13.5
[2021-10-14 15:32] VITALS: BP 159/98; PULSE 89; RESP 16; TEMP 36.3; O2SAT 97
[2021-10-14 20:00] VITALS: BP 138/69; PULSE 74; RESP 17; TEMP 36.6; O2SAT 98
[2021-10-15] VITALS (9 sets, daily range): BP systolic 114–169; BP diastolic 65–84; PULSE 70–89; RESP 16–20; TEMP 36.4–36.8; O2SAT 96–100
[2021-10-15] MEDS: trazodone 150 mg Tablet PO (00:22)
[2021-10-15] MEDS: HYDROcodone-acetaminophen 5-325 mg Tablet PO ×6 (00:22→22:02)
[2021-10-15 04:29] LABS: Basophils % 0.1 %; Eosinophils # 0.2 10^3/uL (0.0-0.8); Eosinophils % 3.4 %; Hematocrit 27.5 % (37.0-47.0); Hemoglobin 7.7 g/dL (11.5-15.3); Mean Corpuscular Hemoglobin 19.4 pg (28.0-34.0); Mean Corpuscular Volume 69.3 fl (81-99); Mean Platelet Volume 9.3 fL (7.4-10.4); Monocytes # 0.5 10^3/uL (0.2-0.9); Monocytes % 6.8 %; Neutrophils # 4.23 10^3/uL (1.8-7.7); Neutrophils % 60.4 %; Nucleated Red Blood Cells % 0 %; Platelet Count 384 10^3/cmm (130-400); Red Blood Count 3.97 10^6/uL (4.1-5.3)
--- NOTE | 2021-10-15 09:20 | CT_ITS ---
WS: [id number] CT ABDOMEN AND PELVIS NONCONTRAST HISTORY: back pain , anemia TECHNIQUE: Imaging performed through the abdomen and pelvis. Coronal and sagittal reformats are submi tted. All CT scans at [facility] use at least one of these dose optimization techniques: auto mated exposure control; mA and/or kV adjustment per patient size (includes targeted exams where dose is matched to clinical indication); or iterative reconstruction. DLP: 1910.6 mGy.cm COMPARISON: 10/11/2021 Lower thorax: Lung bases are clear. Visualized heart is normal. No hiatal hernia. Liver: Normal size liver. No mass or bile duct dilatation. Gallbladder: Mildly contracted gallbladder. No adjacent inflammation. Pancreas: Normal size and attenuation. Normal pancreatic duct. No pancreatitis or mass. Spleen: Normal. Adrenal glands: Normal. No mass. Right kidney: In the interpolar double pigtail RIGHT ureteral stent has been placed. The previous the described mild RIGHT hydronephrosis and hydroureter has resolved. There is mild inflammation remaini ng at the RIGHT renal bed. Left kidney: Normal size kidney with no mass or hydronephrosis. Aorta: Normal abdominal aorta, no aneurysm or atherosclerosis. There is a large amount of air infiltrating the soft tissues particularly of the LEFT abdomen. Air is infiltrating the soft tissues and begins over the lower RIGHT thorax and extends inferiorly over the anterolateral LEFT abdominal wall to the pelvis. There is a large amount of air in soft tissues ante rior to the symphysis pubis. Patient had a recent surgery. There is free air in the peritoneal cavity which all may be related to surgery. There is air in the subcutaneous soft tissues of the abdominal wall and the abdominal wall musculature. GI tract: No obstruction of the GI tract. Patient status post appendectomy. Moderate fecal retention. Pelvis: Urinary bladder is minimally distended. There is a pigtail catheter in the urinary bladder fr om the RIGHT ureter. Mild inflammation soft tissue surrounding the rectum. Again noted is a large com plex partially cystic mass in the RIGHT adnexa measuring 5.6 x 6.5 cm. Osseous structures: Increase in the lumbar lordosis. Mild LEFT curvature of the lumbar spine. CT/CT abdomen pelvis wo con [id number] IMPRESSION: 1. Large amount of air dissecting air within the soft tissues beginning over t he lower LEFT thorax and extending anterior and laterally along the LEFT abdome n into the pelvis. There is a large amount of air in the soft tissues along the surgical tract of over the pelvis and a few small foci of free air in the latesha toneal cavity. The extent of air is more than typically seen postoperatively. P ossibility of a necrotizing fasciitis should be considered. The free air within the peritoneal cavity may all be related to the recent surgery. Cannot complet diana exclude or perforation. This should be clinically considered as a possible etiology. 2. Interval placement of a double pigtail RIGHT ureteral stent with resolution of the hydronephrosis. 3. Again noted is a complex mass in the RIGHT adnexa. Differential remains the same as previously described. 4. Prior appendectomy. Notified Ian Larson MD at 10/15/2021 12:12 PM.
[2021-10-15] MEDS: docusate sodium 100 mg Capsule PO ×2 (09:29→17:38)
[2021-10-15 10:58] LABS: Glucose Point of Care 89 mg/dL (70-110)
[2021-10-15] MEDS: HYDROmorphone 1 mg/mL INJ 1 mL 0.4 MG IVP (11:07)
--- NOTE | 2021-10-15 11:24 | P.PN_ITS ---
Subjective Subjective: This morning patient is complaining of pain in her back and lower abdomen, repeat H&H showed as 8.0 She is in tears Stating that she was not experiencing this pain when she presented in after her laparoscopy her pain has gotten worse I have requested CT abdomen on stat basis, repeat H&H this morning We will give her IV Dilaudid She is anxious and wants to go out and smoke Not ready to be discharged today She is still endorsing menstrual bleeding Vitals/I&O/Wt Last Vital Signs Temp 98.3 F 10/15/21 11:04 Pulse 80 10/15/21 11:04 Resp 20 H 10/15/21 11:07 BP 150/81 10/15/21 11:04 Pulse Ox 97 10/15/21 11:04 10/14/21 10/15/21 10/15/21 22:59 06:59 14:59 Intake Total 600 / 2200 240 / 240 Balance 600 / 2200 240 / 240 Physical Exam Narrative: Emotionally labile Saturating well on room air Abdomen is soft, no signs of peritonitis Paraspinal muscle tenderness on palpation right lumbar region EOMI, PERRLA Nonfocal neuro exam Looks euvolemic No audible stridor or wheezing Urinary Catheter Management: Hinkle Latex: Cath Placed During This Visit: yes Urinary Catheter Date of Insertion: 10/12/21 Urinary Catheter Time of Insertion: 13:27 Data : 10/15/21 08:39 10/14/21 05:10 A&P Assessment and plan (1) Acute on chronic anemia: Status: Acute (2) Hematuria: Status: Acute (3) Pelvic mass in female: Status: Acute (4) Hydronephrosis of right kidney: Status: Acute (5) Renal colic on right side: Status: Acute (6) Extrinsic ureteral obstruction: Status: Acute (7) Intractable nausea and vomiting: Status: Acute (8) Mass of right ovary: Status: Acute (9) Opiate abuse, episodic: Status: Chronic (10) Methamphetamine dependence, episodic: Status: Chronic (11) Pyuria: Status: Acute Plan Status post diagnostic laparoscopy Patient is experiencing excruciating pain today especially in the right paraspinal muscle area, right flank pain Requested CT abdomen pelvis on stat basis We will give her IV Dilaudid She is not ready to be discharged Repeat H&H, endorsing active menstrual bleeding, hemoglobin 8.[address] Fox updated Patient is still endorsing dysuria continue ceftriaxone No leukocytosis, she is afebrile Plan to discharge her tomorrow with outpatient follow-up with Dr. Weeks Patient is very anxious, wants to go out and smoke, Attestations Medical Necessity Statement*: Discharge tomorrow Time Spent in Patient Care: 30 Coding Level of Care Code Acute Male Infertility Specialist for Chg Fwd Diagnoses Acute on chronic anemia D64.9 Hematuria R31.9 Pelvic mass in female R19.00 Hydronephrosis of right kidney N13.30 Renal colic on right side N23 Extrinsic ureteral obstruction N13.5 Intractable nausea and vomiting R11.2 Mass of right ovary N83.8 Opiate abuse, episodic F11.10 Methamphetamine dependence, episodic F15.20 Pyuria R82.81
[2021-10-15] MEDS: HYDROmorphone 1 mg/mL INJ 1 mL 0.2 MG IVP ×2 (15:16→19:27)
[2021-10-16] VITALS (10 sets, daily range): BP systolic 113–154; BP diastolic 70–84; PULSE 69–86; RESP 16–18; TEMP 36.4–36.6; O2SAT 94–100
[2021-10-16] MEDS: HYDROmorphone 1 mg/mL INJ 1 mL 0.2 MG IVP ×3 (00:16→14:42)
[2021-10-16] MEDS: trazodone 150 mg Tablet PO (00:19)
[2021-10-16] MEDS: HYDROcodone-acetaminophen 5-325 mg Tablet PO ×3 (02:05→12:53)
[2021-10-16 06:48] LABS: Blood Urea Nitrogen 12 mg/dL (6-20); Calcium 8.4 mg/dL (8.5-10.5); Carbon Dioxide 25 mmol/L (22-29); Chloride 104 mmol/L (98-107); Glomerular Filtration Rate 93.2 mL/min (90-130); Glucose 91 mg/dL (65-115); Osmolality Calculated 279 mOsm/kg (285-295); Sodium 135 mmol/L (136-145)
[2021-10-16 07:11] LABS: Basophils % 0.3 %; Eosinophils # 0.2 10^3/uL (0.0-0.8); Eosinophils % 3.7 %; Hematocrit 30.3 % (37.0-47.0); Hemoglobin 8.4 g/dL (11.5-15.3); Lymphocytes % 31.7 %; Mean Corpuscular HGB Conc 27.7 g/dL (30.0-36.0); Mean Corpuscular Hemoglobin 19.6 pg (28.0-34.0); Mean Corpuscular Volume 70.6 fl (81-99); Mean Platelet Volume 9.4 fL (7.4-10.4); Monocytes # 0.5 10^3/uL (0.2-0.9); Monocytes % 7.2 %; Neutrophils # 3.55 10^3/uL (1.8-7.7); Neutrophils % 56.8 %; Nucleated Red Blood Cells % 0 %; Platelet Count 397 10^3/cmm (130-400); Red Blood Count 4.29 10^6/uL (4.1-5.3); Red Cell Distribution Width 21.5 % (12.1-15.1); White Blood Count 6.3 10^3/uL (4.0-10.0)
[2021-10-16] MEDS: docusate sodium 100 mg Capsule PO (08:42)
[2021-10-16] MEDS: HYDROmorphone 1 mg/mL INJ 1 mL 0.4 MG IVP (10:39)
--- NOTE | 2021-10-16 10:54 | PC.SOCIAL ---
IMM update IMM updated with patient. Copy Pg 2 provided. Initialled, dated, timed, and placed in chart.
--- NOTE | 2021-10-16 11:22 | P.DS_ITS ---
Discharge Providers Date of Admission: 10/11/21 15:24 Date of Discharge: October 16, 2021 Attending Provider at Admission: Ian Larson MD Attending Provider at Discharge: Ian Larson MD Primary Care Provider: Clarice Guido Diagnoses at Discharge Discharge Diagnosis (1) Acute on chronic anemia: Status: Acute (2) Hematuria: Status: Acute (3) Pelvic mass in female: Status: Acute (4) Hydronephrosis of right kidney: Status: Acute (5) Renal colic on right side: Status: Acute (6) Extrinsic ureteral obstruction: Status: Acute (7) Intractable nausea and vomiting: Status: Acute (8) Mass of right ovary: Status: Acute (9) Opiate abuse, episodic: Status: Chronic (10) Methamphetamine dependence, episodic: Status: Chronic (11) Pyuria: Status: Acute Reason for Visit Reason for Visit: N/V Hospital Course Hospital Course This is my admitting note Lorie Chacon is a 40 year old female who presented to the hospital chief complaint of recurrent nausea and vomiting. Patient is stating that her symptoms started last night around midnight when she was watching television, she was at rest.? She describes her symptoms as sharp stabbing midsternal chest pain.? It was nonradiating, it started before she experienced nausea and vomiting.? In total she has had more than 15 episodes of emesis.? This morning she decided to come to the hospital for worsening of her chest pain which she describing midsternal sharp, shooting pain.? She is also able to pinpoint and lower midsternal area which is tender.? She did not experience radiation of pain, diaphoresis, shortness of breath. She does have history of IV drug abuse, her last IV methamphetamine use was about 4 months ago, last marijuana use was yesterday, She has not noticed any fever, diarrhea, she is endorsing dysuria, urinary frequency, abdominal cramps and recurrent emesis. No one else is sick at home, no recent change in medications, currently she is experiencing menstrual bleeding.? Her menstrual periods are irregular.? She does not take any OCPs.? She is living with her female partner, endorsing weight loss secondary to use of IV meth. In the ER she was afebrile, no leukocytosis however CT abdomen pelvis showed concerning adnexal dimensions MPRESSION: 1. Thick-rimmed cystic structure in the right adnexa with surrounding inflammatory change. Findings could reflect a tubo-ovarian abscess. This results in mild right hydroureteronephrosis. 2. Mural thickening of the upper rectum and distal sigmoid colon may be reactive or could reflect some element of colitis. Transvaginal ultrasound Right ovary: 5.6 cm x 5.5 cm x 5.5 cm. Abnormal adnexa and RIGHT ovary. As noted on the recent CT the ovary is enlarged with a thick wall. No typical appearance for tubo-ovarian abscess. There is increased vascularity within the very peripheral aspect of the ovary. There is a central cyst measuring 3.9 x 3.5 x 3.3 cm. Left ovary: 2.1 cm x 2.2 cm x 2.4 cm. Normal size and vascularity, no cystic or solid masses. Small amount of free fluid in the pelvis. Complex material in the LEFT pelvis is probably hemorrhage IMPRESSION: ? 1.? Abnormal RIGHT adnexa. There is a thick wall mass with a central cyst in the RIGHT adnexa. This is probably an abnormal ovary with venous congestion. After reviewing the prior CT differential includes ovarian torsion, complex echogenic cyst and neoplasm resulting and also obstruction of the distal RIGHT ureter. The RIGHT ovary has now rotated into a more anterior position as compared to a prior CT from 2019. Ovarian torsion needs to be excluded. ? 2.? Small amount of free fluid. This case was discussed with Dr. Ruddy Zavaleta ?[place] is available if needed for right mild hydronephrosis At the time of my eval, she was stable, comfortable, no active emesis, she asked for [facility] course Patient was admitted for management and evaluation of renal colic, adnexal mass, hydronephrosis. She went for diagnostic laparoscopy and ureteral stent placement on 10/12.Cystoscopy and stent placement by Dr. Aguila on the right ureter was performed without complication.? 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 Plan dilation and curettage was not possible due to a stenosis on the cervix.? Scant tissue from the cervix was obtained and sent to pathology.? Due to the appearance of the bladder dome and pelvis anatomy, and suspected for possible malignancy referral to [facility] in [place] was recommended.? She is afebrile and hemodynamically stable.? Tolerating diet well.? However she had a drop in hemoglobin.? She was anemic preop with a hemoglobin of 9.3, which decreased to 7.7 mg/dl.? Blood transfusion was ordered.??Tranexamic acid ?recommended. Her hemoglobin remained stable, she was also given a bag of iron as well she was diagnosed with low vitamin B12 and iron. Repeat CT scan of abdomen pelvis was requested because of her worsening flank pain. It did show a lot of air burden however she never showed any signs of abdominal wall cellulitis, peritonitis, my suspicion for any viscus perforation was low. CT Abdo pelvis findings are more consistent with recent diagnostic laparoscopy. She was able to void urine well without any difficulty, no signs of constipation, she remained afebrile no leukocytosis, no signs of sepsis. Lactic acid normal. At the time of discharge she was given oxycodone, vitamin B12 and iron supplementation and referral to see Dr. Arzate in [place] [facility]. Pathology results 10/16 A.? Endocervix, curettage: ?Benign fragments of endocervical glandular epithelium. ?No dysplasia or malignancy identified. Physical Exam Narrative: Saturating well on room air Abdomen is soft, no signs of peritonitis Paraspinal muscle tenderness on palpation right lumbar region EOMI, PERRLA Nonfocal neuro exam Looks euvolemic No audible stridor or wheezing Urinary Catheter Management: Hinkle Latex: Cath Placed During This Visit: yes Urinary Catheter Date of Insertion: 10/12/21 Urinary Catheter Time of Insertion: 13:27 Discharge Data Studies Completed and Pending Completed Studies During Hospitalization Category Date Time Status CT abdomen pelvis w con* [id number] Urgent Cat Scan 10/11/21 06:[address] abdomen pelvis wo con [id number] Stat Cat Scan 10/15/21 09:20 Completed XR chest 1V portable [id number] Stat Exams 10/11/21 13:13 Completed Pathology: Surgical [PTH] Routine Pth 10/12/21 14:27 Completed US transvaginal [id number] Urgent Ultrasound 10/11/21 09:50 Completed Pending at discharge Category Date Time Status ES surgery / GI images Routine Exams 10/12/21 11:45 Taken Occult Blood Stool [Immunochemical Fecal OCB] Routine Lab 10/13/21 07:12 Uncollected Radiology Impressions Transvaginal US 10/11/21 09:50 IMPRESSION: 1. Abnormal RIGHT adnexa. There is a thick wall mass with a central cyst in the RIGHT adnexa. This is probably an abnormal ovary with venous congestion. After reviewing the prior CT differential includes ovarian torsion, complex echogenic cyst and neoplasm resulting and also obstruction of the distal RIGHT ureter. The RIGHT ovary has now rotated into a more anterior position as compared to a prior CT from 2019. Ovarian torsion needs to be excluded. 2. Small amount of free fluid. Notified Jose Alberto Marie at 10/11/2021 12:02 PM. Chest X-Ray 10/11/21 13:13 Impression: Negative chest. C-Arm Fluoroscopy 10/12/21 08:00 Impression: Right retrograde ureterogram. Abdomen/Pelvis CT 10/15/21 09:20 IMPRESSION: 1. Large amount of air dissecting air within the soft tissues beginning over the lower LEFT thorax and extending anterior and laterally along the LEFT abdomen into the pelvis. There is a large amount of air in the soft tissues along the surgical tract of over the pelvis and a few small foci of free air in the peritoneal cavity. The extent of air is more than typically seen postoperatively. Possibility of a necrotizing fasciitis should be considered. The free air within the peritoneal cavity may all be related to the recent surgery. Cannot completely exclude or perforation. This should be clinically considered as a possible etiology. 2. Interval placement of a double pigtail RIGHT ureteral stent with resolution of the hydronephrosis. 3. Again noted is a complex mass in the RIGHT adnexa. Differential remains the same as previously described. 4. Prior appendectomy. Notified Ian Larson MD at 10/15/2021 12:12 PM. Laboratory Results WBC 6.3 10^3/uL (4.0-10.0) 10/16/21 06:11 RBC 4.29 10^6/uL (4.1-5.3) 10/16/21 06:11 Hgb 8.4 g/dL (11.5-15.3) L 10/16/21 06:11 Hct 30.3 % (37.0-47.0) L 10/16/21 06:11 MCV 70.6 fl (81-99) L 10/16/21 06:11 MCH 19.6 pg (28.0-34.0) L 10/16/21 06:11 MCHC 27.7 g/dL (30.0-36.0) L 10/16/21 06:11 RDW 21.5 % (12.1-15.1) H 10/16/21 06:11 Plt Count 397 10^3/cmm (130-400) 10/16/21 06:11 MPV 9.4 fL (7.4-10.4) 10/16/21 06:11 Neut % (Auto) 56.8 % 10/16/21 06:11 Lymph % (Auto) 31.7 % 10/16/21 06:11 [place] % (Auto) 7.2 % 10/16/21 06:11 Eos % (Auto) 3.7 % 10/16/21 06:11 Baso % (Auto) 0.3 % 10/16/21 06:11 Neut # (Auto) 3.55 10^3/uL (1.8-7.7) 10/16/21 06:11 Lymph # (Auto) 2.0 10^3/uL (0.8-4.8) 10/16/21 06:11 [place] # (Auto) 0.5 10^3/uL (0.2-0.9) 10/16/21 06:11 Eos # (Auto) 0.2 10^3/uL (0.0-0.8) 10/16/21 06:11 Baso # (Auto) 0.0 10^3/uL (0.0-0.1) 10/16/21 06:11 Nucleated RBC % (auto) 0 % 10/16/21 06:11 Nucleated RBCs # 0.0 /100WBC 10/16/21 06:11 Sodium 135 mmol/L (136-145) L 10/16/21 06:11 Potassium 4.0 mmol/L (3.5-5.1) 10/16/21 06:11 Chloride 104 mmol/L (98-107) 10/16/21 06:11 Carbon Dioxide 25 mmol/L (22-29) 10/16/21 06:11 Anion Gap 10.0 (5-19) 10/16/21 06:11 BUN 12 mg/dL (6-20) 10/16/21 06:11 Creatinine 0.7 mg/dL (0.5-0.9) 10/16/21 06:11 GFR Calculation 93.2 mL/min (90-130) 10/16/21 06:11 Glucose 91 mg/dL (65-115) 10/16/21 06:11 POC Glucose 89 mg/dL (70-110) 10/15/21 10:41 Estimat Average Glucose 91 10/11/21 06:30 Hemoglobin A1c 4.8 % (4.0-6.0) 10/11/21 06:30 Calculated Osmolality 279 mOsm/kg (285-295) L 10/16/21 06:11 Calcium 8.4 mg/dL (8.5-10.5) L 10/16/21 06:11 Magnesium 1.9 mg/dL (1.7-2.3) 10/12/21 04:09 Iron 17 ug/dL (37-145) L 10/11/21 15:21 TIBC 334 mcg/dl 10/11/21 15:21 % Saturation 5.0 % (20-50) L 10/11/21 15:21 Unsat Iron Binding 317 ug/dL (112-347) 10/11/21 15:21 Ferritin 17 ng/mL (15-150) 10/11/21 15:21 Total Bilirubin 0.3 mg/dL (0.15-1.2) 10/11/21 06:30 AST 9 U/L (0-32) 10/11/21 06:30 ALT 7 U/L (0-33) 10/11/21 06:30 Alkaline Phosphatase 84 IU/L (35-105) 10/11/21 06:30 Troponin T Gen 5 ng/L 9 ng/L (0-10) 10/12/21 09:37 Troponin T 120 Minute Cancelled 10/11/21 14:50 Delta Troponin T Cancelled 10/11/21 14:50 C-Reactive Protein 6.2 mg/L (0.0-4.9) H 10/12/21 04:09 Total Protein 8.1 g/dL (6.6-8.7) 10/11/21 06:30 Albumin 4.1 g/dL (3.5-5.2) 10/11/21 06:30 Globulin 4.0 g/dL (1.3-4.6) 10/11/21 06:30 Lipase 29 U/L (13-60) 10/11/21 06:30 Vitamin B12 211 pg/mL (232-1245) L 10/11/21 15:21 Procalcitonin 0.07 ng/mL (0-0.5) 10/11/21 15:21 HCG, Qual Negative (Negative) 10/11/21 14:46 Ser , Semi-Qnt 0.50 mIU/mL 10/11/21 06:30 Urine Color Yellow (Yellow) 10/11/21 14:46 Urine Appearance Sl hazy (CLEAR) 10/11/21 14:46 Urine pH 6 (5-7) 10/11/21 14:46 Ur Specific [place] 1.015 (1.005-1.030) 10/11/21 14:46 Urine Protein Neg (Negative) 10/11/21 14:46 Urine Glucose (UA) Norm (Normal) 10/11/21 14:46 Urine Ketones Negative (Negative) 10/11/21 14:46 Urine Blood 3+ (Negative) H 10/11/21 14:46 Urine Nitrate Negative (Negative) 10/11/21 14:46 Urine Bilirubin Neg (Negative) 10/11/21 14:46 Urine Urobilinogen Norm mg/dL (Negative) 10/11/21 14:46 Ur Leukocyte Esterase 2+ (Negative) H 10/11/21 14:46 Urine RBC 40-50 /hpf (0-2) H 10/11/21 14:46 Urine WBC 25-40 /hpf (0-5) H 10/11/21 14:46 Ur Squamous Epith Cells 0-4 /hpf (0-5) H 10/11/21 14:46 Amorphous Sediment Not Reportable 10/11/21 14:46 Urine Bacteria Trace /hpf (NONE) 10/11/21 14:46 Urine Opiates Screen Negative ng/mL (Negative) 10/11/21 14:46 Ur Barbiturates Screen Negative ng/mL (Negative) 10/11/21 14:46 Ur Phencyclidine Scrn Negative ng/mL (Negative) 10/11/21 14:46 Ur Amphetamines Screen Negative ng/mL (Negative) 10/11/21 14:46 U Benzodiazepines Scrn Negative ng/mL (Negative) 10/11/21 14:46 Urine Cocaine Screen Negative ng/mL (Negative) 10/11/21 14:46 U Marijuana (THC) Screen Positive ng/mL (Negative) H 10/11/21 14:46 Ethyl Alcohol < 10 mg/dL (0-10) 10/11/21 06:30 Vitals Last Vital Signs Temp 97.6 F 10/16/21 07:00 Pulse 69 10/16/21 07:00 Resp 18 10/16/21 10:39 BP 131/74 10/16/21 07:00 Pulse Ox 97 10/16/21 07:00 Discharge Plan Discharge Patient Disposition: Home Condition: Stable Prescriptions: New oxycodone 10 mg tablet 10 mg PO Q12H PRN (Reason: pain) Qty: 10 0RF Senna-S 8.6-50 mg tablet 1 tab-cap PO BID PRN (Reason: constipation) Qty: 20 0RF oxycodone 10 mg tablet 10 mg PO BID PRN (Reason: pain) Qty: 2 0RF ferrous sulfate [Feosol] 325 mg (65 mg iron) tablet 325 mg PO DAILY Qty: 60 2RF cyanocobalamin (vitamin B-12) 1,000 mcg capsule 1,000 mcg PO DAILY Qty: 90 4RF Continued meloxicam 15 mg tablet 15 mg PO DAILY PRN (Reason: muscle spasm) 0RF trazodone 150 mg tablet 150 mg PO BEDTIME Qty: 30 1RF acetaminophen [Tylenol] 325 mg Tablet 325 mg PO PRN PRN (Reason: Pain) 0RF albuterol sulfate 90 mcg/actuation HFA aerosol inhaler 2 puff INHALATION Q6H PRN (Reason: Shortness Of Breath) 0RF Paxil 20 mg tablet 20 mg PO DAILY 0RF Discharge Orders: Discharge Order (Routine); Ordered 10/16/21 Ordered By: Ian Larson Referrals: Darren Mir MD [Referring] - 1-3 days (SENT REFERRAL THEY WILL CALL WITH APPOINTMENT) Clarice Guido FNP [Primary Care Provider] - 10/26/21 1:00 pm Vinicius Aguila MD [Physician] - 2 weeks Patient Instructions: Oxycodone/Acetaminophen (By mouth) (Percocet, Roxicet), Laxative, Stool Softeners (By mouth) (Doculax, Colace, Colace Clear, DSS), He maturia (GEN), Opioid Safety Discharge Attestations Time Spent in Discharge Care*: less than 30 min Quality Metrics Clinical Quality Measures [ No reported AMI, CVA or VTE this stay] Coding Level of Care Code Acute Chg FW DC note Diagnoses Acute on chronic anemia D64.9 Hematuria R31.9 Pelvic mass in female R19.00 Hydronephrosis of right kidney N13.30 Renal colic on right side N23 Extrinsic ureteral obstruction N13.5 Intractable nausea and vomiting R11.2 Mass of right ovary N83.8 Opiate abuse, episodic F11.10 Methamphetamine dependence, episodic F15.20 Pyuria R82.81
--- NOTE | 2021-10-16 19:01 | PC.NURSE ---
1829: Patient called stating that she went to [facility] pharmacy to picker machine operator her Rx and they were closed, so she was unable to pick them up. I called and spoke with Dr. Larson and informed him of this. He states that he will call in 2 tablets of Oxycodone to [facility]'s to get her through the night and she could picker machine operator the remaining at [facility] tomorrow. I spoke with the patient and informed her of this. She verbalizes understanding.
== END 2021-10-16 16:54 | disposition home or self-care (01) | DRG 744 ==
LOC: ER 07:11 → MEDSURG 15:39
PROVIDERS: Obstetrics & Gynecology; Urology; Admitting Provider Internal Medicine; Emergency Provider Emergency Medicine; PCP Nurse Practitioner Family; Visit Provider Internal Medicine
PROC: (CPT 49320; principal; 2021-10-12 12:00)
PROC: 0TJB8ZZ Inspection of Bladder, Via Natural or Artificial Opening Endoscopic (ICD-10-PCS; CPT 52000; 2021-10-12 12:00)
PROC: BT1D1ZZ Fluoroscopy of Right Kidney, Ureter and Bladder using Low Osmolar Contrast (ICD-10-PCS; CPT 74420; 2021-10-12 12:00)
PROC: BT1D1ZZ Fluoroscopy of Right Kidney, Ureter and Bladder using Low Osmolar Contrast (ICD-10-PCS; CPT 50605; 2021-10-12 12:00)
PROC: (CPT 58120; 2021-10-12 12:00)
DX: N83.8 Other noninflammatory disorders of ovary, fallopian tube and broad ligament (principal); N13.0 Hydronephrosis with ureteropelvic junction obstruction; F15.20 Other stimulant dependence, uncomplicated; N73.6 Female pelvic peritoneal adhesions (postinfective); F11.10 Opioid abuse, uncomplicated; F17.210 Nicotine dependence, cigarettes, uncomplicated; E03.9 Hypothyroidism, unspecified; N93.9 Abnormal uterine and vaginal bleeding, unspecified; I10 Essential (primary) hypertension; D50.9 Iron deficiency anemia, unspecified; R30.0 Dysuria
CPT/HCPCS: 36415; 36416; 71045; 74176; 74177; 76000; 76830; 80048; 80053; 80306; 80307; 81001; 81025; 82607; 82728; 82962; 83036; 83540; 83550; 83690; 83735; 84145; 84484; 84702; 85014; 85018; 85025; 85027; 86140; 87077; 87086; 87186; 88305; 93005; 96372; 99285; C2625; J0696; J1100; J1170; J1756; J1885; J2270; J2405; J2704; J2710; J3010; J3420; J3490; J7030; Q9967

== ENCOUNTER 2021-11-05 14:53 | Emergency (ER) | payer MEDICARE, MEDICAID, SELFPAY ==
[2021-11-05 15:17] VITALS: BP 138/82; PULSE 86; RESP 18; TEMP 36.6; O2SAT 96; BMI 35.2
--- NOTE | 2021-11-05 16:32 | CTR_ITS ---
PROCEDURE INFORMATION: Exam: CT Abdomen And Pelvis With Contrast Exam date and time: 11/05/2021 6:44 PM Age: 40 years old Clinical indication: Other: Acute vaginal bleeding; Localized; Lower; Prior surgery; Surgery date: 1-6 months; Surgery type: Stent placement RT ureter. Appy in 2019; Patient HX: Sudden onset of vaginal bleeding and low abdominal pain and back pain this a. M; Additional info: Eval for pathologies TECHNIQUE: Imaging protocol: Computed tomography of the abdomen and pelvis with contrast. Radiation optimization: All CT scans at this facility use at least one of these dose optimization techniques: automated exposure control; mA and/or kV adjustment per patient size (includes targeted exams where dose is matched to clinical indication); or iterative reconstruction. Contrast material: OMNI 300; Contrast volume: 96 ml; Contrast route: INTRAVENOUS (IV); COMPARISON: CT abdomen pelvis wo con [id number] 10/15/2021 9:58 AM RADIATION DOSE METRICS: Total DLP (mGy-cm): 1786.752 FINDINGS: Liver: Normal. No mass. Gallbladder and bile ducts: Normal. No calcified stones. No ductal dilation. Pancreas: Normal. No ductal dilation. Spleen: Normal. No splenomegaly. Adrenal glands: Normal. No mass. Kidneys and ureters: Right ureteral stent seen in place. Stomach and bowel: Unremarkable. No obstruction. No mucosal thickening. Appendix: No evidence of appendicitis. Intraperitoneal space: Unremarkable. No free air. No significant fluid collection. Arteries: Unremarkable. No abdominal aortic aneurysm. Lymph nodes: Unremarkable. No enlarged lymph nodes. Urinary bladder: Diffuse urinary bladder wall thickening may be due to nondistention, a cystitis is also a consideration. Reproductive: Right adnexal 6.5 cm partially cystic mass again seen, ultrasound could further evaluate this as clinically indicated. Bones/joints: Unremarkable. No acute fracture. Soft tissues: Unremarkable. CT/CT abdomen pelvis w con* [id number] IMPRESSION: 1. Right ureteral stent seen in place. 2. Diffuse urinary bladder wall thickening may be due to nondistention, a cystitis is also a consideration. 3. Right adnexal 6.5 cm partially cystic mass again seen, ultrasound could further evaluate this as clinically indicated.
--- NOTE | 2021-11-05 16:47 | USR_ITS ---
PROCEDURE INFORMATION: Exam: US Pelvis, Transvaginal Exam date and time: 11/05/2021 7:46 PM Age: 40 years old Clinical indication: Menstruation abnormalities; Irregular menstruation; Additional info: Eval for pathologies TECHNIQUE: Imaging protocol: Real-time transvaginal pelvic ultrasound with image documentation. Transvaginal imaging was used for better evaluation of the endometrium, adnexa, and/or cervix. COMPARISON: US transvaginal [id number] 10/11/2021 11:02 AM FINDINGS: Uterus: Endometrial stripe is normal in thickness measuring 6 mm with a somewhat cystic appearance in the lower uterine segment perhaps related to menstrual status. Right ovary/adnexa: Right ovary not visualized. Left ovary/adnexa: Left ovary not visualized. Intraperitoneal space: Trace nonspecific fluid in the pelvis. US/US transvaginal [id number] IMPRESSION: 1. Endometrial stripe is normal in thickness measuring 6 mm with a somewhat cystic appearance in the lower uterine segment perhaps related to menstrual status. 2. Right ovary not visualized. 3. Left ovary not visualized. 4. Trace nonspecific fluid in the pelvis.
--- NOTE | 2021-11-05 16:57 | W.ED.GENADLT ---
HPI - General Adult General: Chief complaint: Back Pain/Injury Stated complaint: BACK PAIN Time Seen by Provider: 11/05/21 16:29 History of Present Illness: Patient is a 40-year-old female w/ hx of appendectomy and recent right-sided urethral stent placement presenting to the emergency room for complaints of acute vaginal bleeding since 5am todeay and worsening back pain. Per chart reviewed, patient was initially mated to hospital 10/11/2021 for right-sided hydronephrosis with possible tubo-ovarian abscess. On 10/12/2021, patient underwent right-sided ureteral stent placement. A D&C was attempted through the cervix however was limited and unsuccessful by Dr. Fox upon admission. Patient was then told to follow-up with [facility] to have the lesion examined. However since her discharge, patient has not been able to follow-up with [facility] since patient does not have a way to get there. Patient tells me that she has not had any vaginal bleeding up until today. Patient denies any new vaginal discharge nausea/vomiting fever/chills. Patient reports lower abdominal pain is constant since since her uretral stent placement. Patient also reports ongoing back pain since the urethral stent placement. Patient denies any chest pain, shortness breath, palpitation, lightheadedness, cough, runny nose, sore throat, melena or hematochezia. She reports mild urinary discomfort but denies dysuria or pyuria. Onset: 5am acutely vaginal bleeding, lower abd pain and back pain since 10/11/2021 Duration:ongoing Location:home Severity:moderate Associated symptoms: Deny chest pain, dyspnea, nausea, rash, palpitations or vomiting Review of Systems Const: Denies: fever(s) or chills Eyes: Denies: change in vision ENMT: Denies: mouth pain Card: Denies: chest pain or palpitations Resp: Denies: dyspnea or non-productive cough GI: Reports: abdominal pain (+lower abd pain); Denies: nausea, vomiting or diarrhea : Reports: other (+urinary discomfort, +vaginal bleeding); Denies: dysuria Musc: Reports: back pain; Denies: extremity pain Skin/Breast: Denies: rash or new lesions Neuro: Denies: weakness in extremities Psych: Reports: other (Normal mood) Amilcar/Lymph: Denies: easy bruising PFSH ED PFSH: Medical History Abnormal uterine bleeding (AUB) Asthma Benign essential HTN Bilateral primary osteoarthritis of knee DDD (degenerative disc disease) Fatty infiltration of liver Gender dysphoria Hypothyroidism Intervertebral disc disorders with radiculopathy, lumbar region Major depressive disorder, recurrent severe without psychotic features Methamphetamine dependence, episodic Morbid obesity with BMI of 50.0-59.9, adult Nicotine dependence, cigarettes, uncomplicated Opiate abuse, episodic Psychiatric care Pyuria Uncontrolled type 2 diabetes mellitus, without long-term current use of insulin Urinary incontinence Surgical History History of endometrial biopsy (04/13/20) benign endocervical epithelium Hx of foot surgery S/P laparoscopic appendectomy (04/19/20) Family History Mother Diabetes Other Heart disease Social History Smoking and tobacco status: current some day smoker cigarettes Packs smoked per day: 0.5 Years cigarettes smoked: 20 Alcohol intake: current Alcohol intake frequency: holidays/special occasions only Alcohol type: beer and hard liquor Household members: other Details: partner and her mom History of recent travel: No Current gender identity: Male and Other Gender Identity Comment: Goes by Saul, considering formal transition Female Reproductive History: Date of last menstrual period: 06/30/21 Physical Exam Const: COMMON NORMALS: alert HENMT: COMMON NORMALS: atraumatic HEAD & SCALP: atraumatic MOUTH: moist mucous membranes not abnormal Eye: COMMON NORMALS: EOMs intact bilaterally and conjunctivae normal CONJUNCTIVA: Yes conjunctivae normal Neck/C-Spine: COMMON NORMALS: full ROM and supple Resp: COMMON NORMALS: normal respiratory effort and clear to auscultation bilaterally AUSCULTATION: clear to auscultation bilaterally Cardio: COMMON NORMALS: regular rate RATE: regular rate GI: COMMON NORMALS: Soft to palpation PALPATION: Yes Soft to palpation OTHER: +Moderate lower TTP. NO guarding rebound, guarding, rigidity. + R CVA tenderness to percussion. Neg Banerjee/Neg McBurney's point tenderness, no suprabupic tenderness to palpation. Extremity: COMMON NORMALS: full ROM Neuro: SENSORIUM/ORIENTATION: Yes alert MOTOR EXAM: No Abnormal motor strength present and Other motor observations present (no focal motor deficits) Psych: COMMON NORMALS: speech normal SPEECH: Yes normal speech MOOD & AFFECT: Yes euthymic mood Course Vital Signs: Vital signs: Vital Signs Temperature 98.3 F 11/05/21 21:47 Pulse Rate 88 11/05/21 21:47 Respiratory Rate 15 11/05/21 21:47 Blood Pressure 128/98 11/05/21 21:47 Pulse Oximetry 98 11/05/21 21:47 MDM - General Adult Medical Decision Making 40-year-old female with history of prior appendectomy and recent urethral stent placement presenting to the emergency room with worsening right-sided back pain, lower abdominal pain and new onset of vaginal bleeding since 5 AM this morning. On physical exam, patient has moderate tenderness palpation of lower abdomen right CVA tenderness. I offered patient pelvic exam however patient declined today. Patient is noted to have hemoglobin 9.9 consistent with baseline. White count 10.1K. Patient again noted to have right adnexal 6.5 partial cystic lesion possible cystitis on CT. at the present time, given the fact the patient has had similar lesion in the past, with minimal white count, no nausea/vomiting/or significant pelvic pain, I do not suspect that this is tubo-ovarian abscess or acute ovarian torsion. I have asked patient further why she could not make her appointment with Dr. Mir at [facility] in [facility]. Patient tells me that she not have a way to get to [facility]. I have given patient Dr. Mir's phone number for her to call. Patient reassures me that she will call and make an appointment Dr. Mir after she goes home. Patient has a copy of her CT report today instructed to follow-up closely with this provider. Creatinine within normal limit. Ureteral stent appears to be properly placed. We will treat her for UTI given lower abdominal pain and possible cystitis on imaging study. Because p[atient deferred vaginal exam today, I could not assess the extent/severity of vaginal bleeding. I have given patient strict return precautions for any significant bleeding, new drainage, pain, or any new concerning complaints. Patient requests for a percocet to go home with tonight and two sandwiches. Rx cephalexin BID for UTI, percocet PRN chronic pain secondary to possible cancer and stent placement Disposition: Discharge. Patient counseled regarding diagnostic impression, treatment plan. Patient given ED strict return precautions to return for continuation, worsening, or development of new symptoms. Instructed to f/u w/ Dr. 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 Patient verbalized understanding. Lab Data : 11/05/21 17:50 04 17:50 Radiology Impressions Abdomen/Pelvis CT 11/05/21 16:32 IMPRESSION: 1. Right ureteral stent seen in place. 2. Diffuse urinary bladder wall thickening may be due to nondistention, a cystitis is also a consideration. 3. Right adnexal 6.5 cm partially cystic mass again seen, ultrasound could further evaluate this as clinically indicated. Transvaginal US 11/05/21 16:47 IMPRESSION: 1. Endometrial stripe is normal in thickness measuring 6 mm with a somewhat cystic appearance in the lower uterine segment perhaps related to menstrual status. 2. Right ovary not visualized. 3. Left ovary not visualized. 4. Trace nonspecific fluid in the pelvis. Laboratory Results WBC 10.1 10^3/uL (4.0-10.0) H 11/05/21 17:50 RBC 4.87 10^6/uL (4.1-5.3) 11/05/21 17:50 Hgb 9.9 g/dL (11.5-15.3) L 11/05/21 17:50 Hct 34.2 % (37.0-47.0) L 11/05/21 17:50 MCV 70.2 fl (81-99) L 11/05/21 17:50 MCH 20.3 pg (28.0-34.0) L 11/05/21 17:50 MCHC 28.9 g/dL (30.0-36.0) L 11/05/21 17:50 RDW 22.1 % (12.1-15.1) H 11/05/21 17:50 Plt Count 381 10^3/cmm (130-400) 11/05/21 17:50 MPV 9.6 fL (7.4-10.4) 11/05/21 17:50 Neut % (Auto) 82.2 % 11/05/21 17:50 Lymph % (Auto) 11.6 % 11/05/21 17:50 Esmeralda % (Auto) 5.1 % 11/05/21 17:50 Eos % (Auto) 0.6 % 11/05/21 17:50 Baso % (Auto) 0.1 % 11/05/21 17:50 Neut # (Auto) 8.27 10^3/uL (1.8-7.7) H 11/05/21 17:50 Lymph # (Auto) 1.2 10^3/uL (0.8-4.8) 11/05/21 17:50 Esmeralda # (Auto) 0.5 10^3/uL (0.2-0.9) 11/05/21 17:50 Eos # (Auto) 0.1 10^3/uL (0.0-0.8) 11/05/21 17:50 Baso # (Auto) 0.0 10^3/uL (0.0-0.1) 11/05/21 17:50 Nucleated RBC % (auto) 0 % 11/05/21 17:50 Nucleated RBCs # 0.0 /100WBC 11/05/21 17:50 Sodium 137 mmol/L (136-145) 11/05/21 17:50 Potassium 3.7 mmol/L (3.5-5.1) 11/05/21 17:50 Chloride 102 mmol/L (98-107) 11/05/21 17:50 Carbon Dioxide 26 mmol/L (22-29) 11/05/21 17:50 Anion Gap 12.7 (5-19) 11/05/21 17:50 BUN 7 mg/dL (6-20) 11/05/21 17:50 Creatinine 0.6 mg/dL (0.5-0.9) 11/05/21 17:50 GFR Calculation 111.3 mL/min (90-130) 11/05/21 17:50 Glucose 108 mg/dL (65-115) 11/05/21 17:50 Calculated Osmolality 283 mOsm/kg (285-295) L 11/05/21 17:50 Calcium 8.9 mg/dL (8.5-10.5) 11/05/21 17:50 Total Bilirubin 0.3 mg/dL (0.15-1.2) 11/05/21 17:50 AST 9 U/L (0-32) 11/05/21 17:50 ALT < 5 U/L (0-33) 11/05/21 17:50 Alkaline Phosphatase 77 IU/L (35-105) 11/05/21 17:50 Total Protein 8.2 g/dL (6.6-8.7) 11/05/21 17:50 Albumin 3.5 g/dL (3.5-5.2) 11/05/21 17:50 Globulin 4.7 g/dL (1.3-4.6) H 11/05/21 17:50 Lipase 10 U/L (13-60) L 11/05/21 17:50 Urine Color Yellow (Yellow) 11/05/21 17:00 Urine Appearance Hazy (CLEAR) A 11/05/21 17:00 Urine pH 7 (5-7) 11/05/21 17:00 Ur Specific [place] 1.010 (1.005-1.030) 11/05/21 17:00 Urine Protein Trace (Negative) 11/05/21 17:00 Urine Glucose (UA) Norm (Normal) 11/05/21 17:00 Urine Ketones Negative (Negative) 11/05/21 17:00 Urine Blood 3+ (Negative) H 11/05/21 17:00 Urine Nitrate Negative (Negative) 11/05/21 17:00 Urine Bilirubin Neg (Negative) 11/05/21 17:00 Urine Urobilinogen Neg mg/dL (Negative) 11/05/21 17:00 Ur Leukocyte Esterase Negative (Negative) 11/05/21 17:00 Urine RBC 80-100 /hpf (0-2) H 11/05/21 17:00 Urine WBC 0-4 /hpf (0-5) H 11/05/21 17:00 Ur Squamous Epith Cells 0-4 /hpf (0-5) H 11/05/21 17:00 Amorphous Sediment Not Reportable 11/05/21 17:00 Urine Bacteria Trace /hpf (NONE) 11/05/21 17:00 Urine HCG, Qual Negative (Negative) 11/05/21 17:00 Imaging Data Other Imaging: Radiologist's impression: [address] [address] Ultrasound Report Signed Patient: Lorie Chacon Unit #: [id number] : 1980 Age/Sex: 40 / F ADM Date: 11/05/21 Loc: ER Room/Bed: Attending Dr: Ordering Provider/Ordering MD: Daiana Arredondo MD Date of Service: 11/05/21 Procedure(s): US transvaginal [id number] Accession Number(s): [id number] Report Number: [id number] PROCEDURE INFORMATION: Exam: US Pelvis, Transvaginal Exam date and time: 11/05/2021 7:46 PM Age: 40 years old Clinical indication: Menstruation abnormalities; Irregular menstruation; Additional info: Eval for pathologies TECHNIQUE: Imaging protocol: Real-time transvaginal pelvic ultrasound with image documentation. Transvaginal imaging was used for better evaluation of the endometrium, adnexa, and/or cervix. COMPARISON: US transvaginal [id number] 10/11/2021 11:02 AM FINDINGS: Uterus: Endometrial stripe is normal in thickness measuring 6 mm with a somewhat cystic appearance in the lower uterine segment perhaps related to menstrual status. Right ovary/adnexa: Right ovary not visualized. Left ovary/adnexa: Left ovary not visualized. Intraperitoneal space:? Trace nonspecific fluid in the pelvis. US/US transvaginal [id number] IMPRESSION: 1. Endometrial stripe is normal in thickness measuring 6 mm with a somewhat cystic appearance in the lower uterine segment perhaps related to menstrual status. 2. Right ovary not visualized. 3. Left ovary not visualized. 4. Trace nonspecific fluid in the pelvis. ? Dictated By: Vishnu Suh MD Signed By: Vishnu Suh MD Signed Date/Time: 11/05/212032 DD/ [address] [address] [address] Scan Report Signed Patient: Lorie Chacon Unit #: [id number] : 1980 Age/Sex: 40 / F ADM Date: 11/05/21 Loc: ER Room/Bed: Attending Dr: Ordering Provider/Ordering MD: Daiana Arredondo MD Date of Service: 11/05/21 Procedure(s): CT abdomen pelvis w con* [id number] Accession Number(s): [id number] Report Number: [id number] PROCEDURE INFORMATION: Exam: CT Abdomen And Pelvis With Contrast Exam date and time: 11/05/2021 6:44 PM Age: 40 years old Clinical indication: Other: Acute vaginal bleeding; Localized; Lower; Prior surgery; Surgery date: 1-6 months; Surgery type: Stent placement RT ureter. Appy in 2019; Patient HX: Sudden onset of vaginal bleeding and low abdominal pain and back pain this a. M; Additional info: Eval for pathologies TECHNIQUE: Imaging protocol: Computed tomography of the abdomen and pelvis with contrast. Radiation optimization: All CT scans at this facility use at least one of these dose optimization techniques: automated exposure control; mA and/or kV adjustment per patient size (includes targeted exams where dose is matched to clinical indication); or iterative reconstruction. Contrast material: OMNI 300; Contrast volume: 96 ml; Contrast route: INTRAVENOUS (IV);? COMPARISON: CT abdomen pelvis wo con [id number] 10/15/2021 9:58 AM RADIATION DOSE METRICS: Total DLP (mGy-cm): 1786.752 FINDINGS: Liver: Normal. No mass. Gallbladder and bile ducts: Normal. No calcified stones. No ductal dilation. Pancreas: Normal. No ductal dilation. Spleen: Normal. No splenomegaly. Adrenal glands: Normal. No mass. Kidneys and ureters: Right ureteral stent seen in place. Stomach and bowel: Unremarkable. No obstruction. No mucosal thickening. Appendix: No evidence of appendicitis. Intraperitoneal space: Unremarkable. No free air. No significant fluid collection. Arteries: Unremarkable. No abdominal aortic aneurysm. Lymph nodes: Unremarkable. No enlarged lymph nodes. Urinary bladder: Diffuse urinary bladder wall thickening may be due to nondistention, a cystitis is also a consideration. Reproductive: Right adnexal 6.5 cm partially cystic mass again seen, ultrasound could further evaluate this as clinically indicated. Bones/joints: Unremarkable. No acute fracture. Soft tissues: Unremarkable. CT/CT abdomen pelvis w con* [id number] IMPRESSION: 1. Right ureteral stent seen in place. 2. Diffuse urinary bladder wall thickening may be due to nondistention, a cystitis is also a consideration. 3. Right adnexal 6.5 cm partially cystic mass again seen, ultrasound could further evaluate this as clinically indicated. ? Dictated By: Vishnu Suh MD Signed By: Vishnu Suh MD Signed Date/Time: 11/05/211921 DD/ 43 Discharge Plan Discharge Patient Disposition: Home Clinical Impression: Back pain, Lower abdominal pain, Vaginal bleeding Condition: Stable Prescriptions: New Percocet 5-325 mg tablet 1 tab PO Q8H PRN (Reason: pain) Qty: 8 0RF cephalexin 500 mg capsule 500 mg PO BID 7 Days Qty: 14 0RF No Action meloxicam 15 mg tablet 15 mg PO DAILY PRN (Reason: muscle spasm) 0RF trazodone 150 mg tablet 150 mg PO BEDTIME Qty: 30 1RF albuterol sulfate 90 mcg/actuation HFA aerosol inhaler 2 puff INHALATION Q6H PRN (Reason: Shortness Of Breath) 0RF paroxetine HCl [Paxil] 20 mg tablet 20 mg PO QAM 0RF sennosides-docusate sodium [Senna-S] 8.6-50 mg tablet 1 tab-cap PO BID PRN (Reason: constipation) Qty: 20 0RF ferrous sulfate [Feosol] 325 mg (65 mg iron) tablet 325 mg PO DAILY Qty: 60 2RF Tylenol Ex Str Rapid Release 500 mg Tablet 1,500 mg PO Q4H PRN (Reason: Pain) 0RF Discharge Orders: Discharge ED (Routine); Ordered 11/05/21 Ordered By: Daiana Arredondo Referrals: Clarice Guido, [employer] [Primary Care Provider] - Patient Instructions: Abdominal Pain (ED), Opioid Safety Activity Restrictions/Additional Instructions: Please call Dr. Mir from [facility] for biopsy [address] [place] [address] Please take your antibiotics as instructed. Watch out for signs of skin changes/redness, mouth redeness or swelling, nausea/vomiting, diarrhea, blood in the urine or any new or concering complaints. Come back to the emergency room if you have any worsening vaginal bleeding, urinary complaints, nausea/vomiting, back pain, or any new or concerning complaints. Here's a copy of your CT report: Lorie Chacon?(c)??40??F??1980 ? Allergy/Adv: naltrexone Close Transvaginal Ultrasound (Signed) Vishnu Suh - 11/05/21 Abdomen/Pelvis CT (Signed) AngeliVishnu - 11/05/21 Abdomen/Pelvis CT (Signed) Lissa Shah - 10/15/21 General Surgery Image 10/12/21 C-Arm Fluoroscopy (Signed) Susi Escobar - 10/12/21 C-Arm Fluoroscopy (Signed) Vinicius Aguila - 10/12/21 Chest X-Ray (Signed) Susi Escobar - 10/11/21 Transvaginal Ultrasound (Signed) Lissa Shah - 10/11/21 Abdomen/Pelvis CT (Signed) Ondina Maradiaga - 10/11/21 Knee X-Ray (Signed) Susi Escobar - 07/16/21 Venous Duplex (Signed) Roshan Morales - 07/16/21 Ankle X-Ray (Signed) Jose Alberto Castro - 06/23/21 Abdomen/Pelvis CT (Signed) Nickolas Rivas - 04/18/20 Transvaginal Ultrasound (Signed) Jasmyn Waldrop - 03/05/20 Pelvis Ultrasound (Cancelled) 03/05/20 Tibia/Fibula X-Ray (Signed) Sara Castillo - 01/15/20 Launch?[place] [address] CT Scan Report Signed Patient: Lorie Chacon Unit #: [id number] : 1980 Age/Sex: 40 / F ADM Date: 11/05/21 Loc: ER Room/Bed: Attending Dr: Ordering Provider/Ordering MD: Daiana Arredondo MD Date of Service: 11/05/21 Procedure(s): CT abdomen pelvis w con* [id number] Accession Number(s): [id number] Report Number: [id number] PROCEDURE INFORMATION: Exam: CT Abdomen And Pelvis With Contrast Exam date and time: 11/05/2021 6:44 PM Age: 40 years old Clinical indication: Other: Acute vaginal bleeding; Localized; Lower; Prior surgery; Surgery date: 1-6 months; Surgery type: Stent placement RT ureter. Appy in 2019; Patient HX: Sudden onset of vaginal bleeding and low abdominal pain and back pain this a. M; Additional info: Eval for pathologies TECHNIQUE: Imaging protocol: Computed tomography of the abdomen and pelvis with contrast. Radiation optimization: All CT scans at this facility use at least one of these dose optimization techniques: automated exposure control; mA and/or kV adjustment per patient size (includes targeted exams where dose is matched to clinical indication); or iterative reconstruction. Contrast material: OMNI 300; Contrast volume: 96 ml; Contrast route: INTRAVENOUS (IV);? COMPARISON: CT abdomen pelvis wo con [id number] 10/15/2021 9:58 AM RADIATION DOSE METRICS: Total DLP (mGy-cm): 1786.752 FINDINGS: Liver: Normal. No mass. Gallbladder and bile ducts: Normal. No calcified stones. No ductal dilation. Pancreas: Normal. No ductal dilation. Spleen: Normal. No splenomegaly. Adrenal glands: Normal. No mass. Kidneys and ureters: Right ureteral stent seen in place. Stomach and bowel: Unremarkable. No obstruction. No mucosal thickening. Appendix: No evidence of appendicitis. Intraperitoneal space: Unremarkable. No free air. No significant fluid collection. Arteries: Unremarkable. No abdominal aortic aneurysm. Lymph nodes: Unremarkable. No enlarged lymph nodes. Urinary bladder: Diffuse urinary bladder wall thickening may be due to nondistention, a cystitis is also a consideration. Reproductive: Right adnexal 6.5 cm partially cystic mass again seen, ultrasound could further evaluate this as clinically indicated. Bones/joints: Unremarkable. No acute fracture. Soft tissues: Unremarkable. CT/CT abdomen pelvis w con* [id number] IMPRESSION: 1. Right ureteral stent seen in place. 2. Diffuse urinary bladder wall thickening may be due to nondistention, a cystitis is also a consideration. 3. Right adnexal 6.5 cm partially cystic mass again seen, ultrasound could further evaluate this as clinically indicated. ? Dictated By: Vishnu Suh MD Signed By: Vishnu Suh MD Signed Date/Time: 11/05/21 192 DD/ 184 Coding Level of Care Code ED Vp Director Of Finance for Chg Fwd Exam Comprehensive
--- NOTE | 2021-11-05 17:22 | PC.PHAR ---
pt states she takes care of her own medications-pt states she hasnt been taking any of her meds since about 10/18/21-pt states she has only been taking tylenol and trazodone-pt states she cant take naltrexone 50mg filled on 08/21/21 30d/s-pt states she doesnt take bupropion sr 150mg daily or quetiapine 50mg filled on 08/21/21 30d/s-pt states her oxycodone ir 10mg got stolen rx filled 10/16/21 1d/s pt states she only got to take 3 tabs-notes are made in the pharmacy comments
[2021-11-05 17:58] LABS: Basophils % 0.1 %; Eosinophils # 0.1 10^3/uL (0.0-0.8); Eosinophils % 0.6 %; Hematocrit 34.2 % (37.0-47.0); Hemoglobin 9.9 g/dL (11.5-15.3); Lymphocytes # 1.2 10^3/uL (0.8-4.8); Lymphocytes % 11.6 %; Mean Corpuscular HGB Conc 28.9 g/dL (30.0-36.0); Mean Corpuscular Hemoglobin 20.3 pg (28.0-34.0); Mean Corpuscular Volume 70.2 fl (81-99); Mean Platelet Volume 9.6 fL (7.4-10.4); Monocytes # 0.5 10^3/uL (0.2-0.9); Monocytes % 5.1 %; Neutrophils # 8.27 10^3/uL (1.8-7.7); Neutrophils % 82.2 %; Nucleated Red Blood Cells % 0 %; Platelet Count 381 10^3/cmm (130-400); Red Blood Count 4.87 10^6/uL (4.1-5.3); Red Cell Distribution Width 22.1 % (12.1-15.1); White Blood Count 10.1 10^3/uL (4.0-10.0)
[2021-11-05 18:21] LABS: Alanine Aminotransferase < 5 U/L (0-33); Albumin Level 3.5 g/dL (3.5-5.2); Alkaline Phosphatase 77 IU/L (35-105); Anion Gap 12.7 (5-19); Aspartate Amino Transferase 9 U/L (0-32); Blood Urea Nitrogen 7 mg/dL (6-20); Calcium 8.9 mg/dL (8.5-10.5); Carbon Dioxide 26 mmol/L (22-29); Chloride 102 mmol/L (98-107); Globulin 4.7 g/dL (1.3-4.6); Glomerular Filtration Rate 111.3 mL/min (90-130); Glucose 108 mg/dL (65-115); Lipase 10 U/L (13-60); Osmolality Calculated 283 mOsm/kg (285-295); Potassium 3.7 mmol/L (3.5-5.1); Sodium 137 mmol/L (136-145); Total Bilirubin 0.3 mg/dL (0.15-1.2); Total Protein 8.2 g/dL (6.6-8.7)
[2021-11-05] MEDS: iohexol 300 mg/mL 100 mL Btl IV (18:37)
[2021-11-05 18:40] VITALS: RESP 15
[2021-11-05] MEDS: morphine 4 mg/mL SDV 1 mL IVP (18:40)
[2021-11-05] MEDS: sodium chloride 0.9% 1,000 ML 999 ML IV (18:41)
[2021-11-05 20:22] LABS: Urine Appearance Hazy (CLEAR); Urine Color Yellow (Yellow)
[2021-11-05 20:23] LABS: Add Urine Culture? Yes; Add Urine Microscopic? YES; Bacteria Urine TRACE /hpf; Bilirubin Urine Neg (Negative); Blood Urine 3+ (Negative); Glucose Urine UA Norm (Normal); Ketones Urine Negative (Negative); Leukocyte Esterase Urine Negative (Negative); Nitrate Urine Negative (Negative); Protein Urine Trace (Negative); RBC Urine 80-100 /hpf (0-2); Squamous Epithelial Cell Urine 0-4 /hpf (0-5); Urobilinogen Urine Neg (Negative); WBC Urine 0-4 /hpf (0-5); pH Urine 7 (5-7)
[2021-11-05 20:53] VITALS: BP 157/87; PULSE 75; RESP 14; TEMP 36.7; O2SAT 98
[2021-11-05] MEDS: oxyCODONE-APAP 5-325 mg Tablet 1 TAB PO (21:27)
[2021-11-05 21:36] VITALS: RESP 15; O2SAT 96
[2021-11-05] MEDS: morphine 4 mg/mL SDV 1 mL 2 MG IVP (21:36)
[2021-11-05 21:46] VITALS: BP 128/98; PULSE 88; RESP 15; TEMP 36.8; O2SAT 98
[2021-11-05 21:47] VITALS: BP 128/98; PULSE 88; RESP 15; TEMP 36.8; O2SAT 98
--- NOTE | 2021-11-06 22:31 | PC.NURSE ---
Mutiple attempts to establish an IV failed. Dr. Arredondo got an IV by ultrasound. The Morphine was mixed in a 10 ml of NS. Nurse started the push the Morphine and the IV infiltrated, less than a 1/10th of a ml was given and medication was stopped. The patient stated the medication hurt so bad she did not want any more. The morphine was waste in the waste bin. Nurse forgot to waste the medication in SEP.
== END 2021-11-05 21:45 | disposition home or self-care (01) ==
PROVIDERS: Emergency Provider Emergency Medicine; PCP Nurse Practitioner Family
DX: R10.30 Lower abdominal pain, unspecified (principal); M54.9 Dorsalgia, unspecified; N39.0 Urinary tract infection, site not specified; Z96.0 Presence of urogenital implants; N93.9 Abnormal uterine and vaginal bleeding, unspecified; R19.09 Other intra-abdominal and pelvic swelling, mass and lump; F17.210 Nicotine dependence, cigarettes, uncomplicated
CPT/HCPCS: 74177; 76830; 80053; 81001; 81025; 83690; 85025; 87086; 96361; 96374; 96376; 99284; J2270; J7030; Q9967

== ENCOUNTER 2022-01-26 21:41 | Emergency (ER) | payer MEDICARE, MEDICAID, SELFPAY ==
[2022-01-26 21:42] VITALS: BP 149/81; PULSE 90; RESP 18; TEMP 36.6; O2SAT 97
--- NOTE | 2022-01-26 23:22 | W.ED.BACK ---
HPI - Back Pain/Injury General: Chief Complaint: Back Pain/Injury Stated Complaint: Back Pain Time Seen by Provider: 01/26/22 23:18 History of Present Illness: 41-year-old female comes in today with complaints of back pain, and purulent urine. Patient appears nontoxic. Patient appears in mild to moderate pain. Patient has a history of stent in the right kidney, uterine mass, chronic back pain, and mental health issues. Associated symptoms: Reports dysuria Review of Systems General: Reports: 10 or more systems reviewed and unremarkable except in HPI and below Card: Denies: chest pain Resp: Denies: dyspnea : Reports: dysuria Musc: Reports: back pain PFSH ED PFSH: Medical History Abnormal uterine bleeding (AUB) Asthma Benign essential HTN Bilateral primary osteoarthritis of knee DDD (degenerative disc disease) Fatty infiltration of liver Gender dysphoria Hypothyroidism Intervertebral disc disorders with radiculopathy, lumbar region Major depressive disorder, recurrent severe without psychotic features Methamphetamine dependence, episodic Morbid obesity with BMI of 50.0-59.9, adult Nicotine dependence, cigarettes, uncomplicated Opiate abuse, episodic Psychiatric care Pyuria Uncontrolled type 2 diabetes mellitus, without long-term current use of insulin Urinary incontinence Surgical History History of endometrial biopsy (04/13/20) benign endocervical epithelium Hx of foot surgery S/P laparoscopic appendectomy (04/19/20) Family History Mother Diabetes Other Heart disease Social History Smoking and tobacco status: current some day smoker cigarettes Packs smoked per day: 0.5 Years cigarettes smoked: 20 Alcohol intake: current Alcohol intake frequency: holidays/special occasions only Alcohol type: beer and hard liquor Household members: other Details: partner and her mom History of recent travel: No Current gender identity: Male and Other Gender Identity Comment: Goes by Salu, considering formal transition Female Reproductive History: Date of last menstrual period: 06/30/21 Physical Exam Const: COMMON NORMALS: alert Neck/C-Spine: COMMON NORMALS: full ROM Resp: COMMON NORMALS: normal respiratory effort and clear to auscultation bilaterally AUSCULTATION: clear to auscultation bilaterally Cardio: COMMON NORMALS: regular rate RATE: regular rate : COMMON NORMALS: Yes no CVA tenderness BLADDER/KIDNEY EXAM: Yes no CVA tenderness Back/Pelvis: COMMON NORMALS: no CVA tenderness THORACIC SPINE/UPPER BACK: Yes paraspinal muscle tenderness Extremity: COMMON NORMALS: normal to inspection Neuro: SENSORIUM/ORIENTATION: Yes alert Skin: COMMON NORMALS: no rashes or lesions noted GENERAL SKIN EXAM: no rashes or lesions noted Course Vital Signs: Vital signs: Vital Signs Temperature 97.9 F 01/26/22 21:42 Pulse Rate 90 01/26/22 21:42 Respiratory Rate 18 01/26/22 21:42 Blood Pressure 149/81 01/26/22 21:42 Pulse Oximetry 97 01/26/22 21:42 MDM - Back Pain/Injury Medical Decision Making 41-year-old female comes in today with complaints of mid back pain, and purulent urine. On exam abdomen soft nontender. Patient has muscle tenderness to the back. Vital signs are normal except for some elevated blood pressure. Patient does have a renal stent on the right side. Differential diagnosis includes musculoskeletal back pain, urinary tract infection, pyelonephritis, malingering. Urinalysis had too numerous to count white blood cells. Patient was given 2 g of Rocephin IM, given 1 dose of hydrocodone for her back pain. Patient was encouraged to drink plenty of water and fluids. We will continue on cephalexin and some hydrocodone for her pain. Patient reported understanding of care plan need for follow-up or return to the ER. Labs Laboratory Results Urine Color Yellow (Yellow) 01/26/22 23:42 Urine Appearance Cloudy (CLEAR) 01/26/22 23:42 Urine pH 6 (5-7) 01/26/22 23:42 Ur Specific [place] 1.015 (1.005-1.030) 01/26/22 23:42 Urine Protein Neg (Negative) 01/26/22 23:42 Urine Glucose (UA) Norm (Normal) 01/26/22 23:42 Urine Ketones Negative (Negative) 01/26/22 23:42 Urine Blood 2+ (Negative) H 01/26/22 23:42 Urine Nitrate Negative (Negative) 01/26/22 23:42 Urine Bilirubin Neg (Negative) 01/26/22 23:42 Urine Urobilinogen Norm mg/dL (Negative) 01/26/22 23:42 Ur Leukocyte Esterase 2+ (Negative) H 01/26/22 23:42 Urine RBC 15-25 /hpf (0-2) H 01/26/22 23:42 Urine WBC Too numerous to cnt /hpf (0-5) H 01/26/22 23:42 Ur Squamous Epith Cells 5-10 /hpf (0-5) H 01/26/22 23:42 Amorphous Sediment Not Reportable 01/26/22 23:42 Urine Bacteria 1+ /hpf (NONE) H 01/26/22 23:42 Discharge Plan Discharge Patient Disposition: Home Clinical Impression: UTI (urinary tract infection) due to Enterococcus, History of renal stent Back pain Qualifiers: Back pain location: low back pain Chronicity: chronic Back pain laterality: unspecified Sciatica presence: without sciatica Qualified Code(s): M54.50 - Low back pain, unspecified Condition: Stable Prescriptions: New cephalexin 500 mg capsule 500 mg PO TID 7 Days Qty: 21 0RF hydrocodone-acetaminophen 5-325 mg tablet 1 tab PO Q6H PRN (Reason: pain) Qty: 7 0RF No Action meloxicam 15 mg tablet 15 mg PO DAILY PRN (Reason: muscle spasm) 0RF trazodone 150 mg tablet 150 mg PO BEDTIME Qty: 30 1RF albuterol sulfate 90 mcg/actuation HFA aerosol inhaler 2 puff INHALATION Q6H PRN (Reason: Shortness Of Breath) 0RF paroxetine HCl [Paxil] 20 mg tablet 20 mg PO QAM 0RF sennosides-docusate sodium [Senna-S] 8.6-50 mg tablet 1 tab-cap PO BID PRN (Reason: constipation) Qty: 20 0RF ferrous sulfate [Feosol] 325 mg (65 mg iron) tablet 325 mg PO DAILY Qty: 60 2RF Tylenol Ex Str Rapid Release 500 mg Tablet 1,500 mg PO Q4H PRN (Reason: Pain) 0RF Percocet 5-325 mg tablet 1 tab PO Q8H PRN (Reason: pain) Qty: 8 0RF Discharge Orders: Discharge ED (Routine); Ordered 01/27/22 Ordered By: Sukhi Vigil Referrals: Hay,Clarice R, POLYS[employer] TECH [Primary Care Provider] - Discharge Diet: Usual diet Discharge Activity: Increase activity as tolerated Patient Instructions: Urinary Tract Infection in Women (ED) Activity Restrictions/Additional Instructions: Follow-up with urologist for further treatment. Follow-up with primary care as needed. Coding Level of Care Code ED [employer] Sheets Supervisor for [employer] Fwd Exam Comprehensive
[2022-01-26 23:51] LABS: Add Urine Microscopic? YES; Bilirubin Urine Neg (Negative); Blood Urine 2+ (Negative); Glucose Urine UA Norm (Normal); Ketones Urine Negative (Negative); Leukocyte Esterase Urine 2+ (Negative); Nitrate Urine Negative (Negative); Protein Urine Neg (Negative); Specific Gravity, Urine 1.015 (1.005-1.030); Urine Appearance Cloudy (CLEAR); Urine Color Yellow (Yellow); Urobilinogen Urine Norm (Negative); pH Urine 6 (5-7)
[2022-01-26 23:56] LABS: WBC Urine TOO NUMEROUS TO CNT /hpf (0-5)
[2022-01-26 23:57] LABS: Add Urine Culture? Yes; Bacteria Urine 1+ /hpf; RBC Urine 15-25 /hpf (0-2)
[2022-01-27] MEDS: HYDROcodone-acetaminophen 7.5-325 mg Tablet 1 TAB PO (00:56)
[2022-01-27 01:27] VITALS: RESP 18
--- NOTE | 2022-01-29 12:31 | DCPLANNER ---
Addendum entered by Karla Marie 02/12/22 15:12: entry level manager was told that clinic has not been able to reach patient to schedule follow up appointment. Original Note: entry level manager had message to schedule a followup appointment for patient with urology and to speak with patient about getting established with a primary care physician. entry level manager sent patients information to the front office staff at urology. Patients information will be printed and reviewed. Clinic will call patient with appointment information. entry level manager called phone number [phone] to speak with patient about getting a primary care physician. entry level manager unable to speak with patient due to phone number no longer in service.
== END 2022-01-27 01:27 | disposition home or self-care (01) ==
PROVIDERS: Emergency Provider Nurse Practitioner Family; PCP Nurse Practitioner Family
DX: M54.50 Low back pain, unspecified (principal); N39.0 Urinary tract infection, site not specified; B95.2 Enterococcus as the cause of diseases classified elsewhere; I10 Essential (primary) hypertension; E11.9 Type 2 diabetes mellitus without complications; F17.210 Nicotine dependence, cigarettes, uncomplicated
CPT/HCPCS: 81001; 87086; 96372; 99284; J0696

== ENCOUNTER 2022-02-02 21:17 | Emergency (ER) | payer MEDICARE, MEDICAID, SELFPAY ==
[2022-02-02 21:22] VITALS: BMI 34.0
--- NOTE | 2022-02-02 22:02 | XRR_ITS ---
PROCEDURE INFORMATION: Exam: XR Pelvis Exam date and time: 02/02/2022 10:13 PM Age: 41 years old Clinical indication: Bilateral; Patient HX: C/O bilat hip pain w/o specific injury; Additional info: B hip pain TECHNIQUE: Imaging protocol: Radiologic exam of the pelvis. Views: 1 or 2 view. COMPARISON: CT abdomen pelvis w con* [id number] 11/05/2021 6:44 PM FINDINGS: Tubes, catheters and devices: The distal and of a right ureteral stent is redemonstrated. Bones/joints: Stable degenerative changes in the visualized spine, hips, and sacroiliac joints. No acute fracture. No dislocation. Normal bone mineralization. Soft tissues: No soft tissue swelling. No radiopaque foreign body. XR/XR pelvis 1-2V* [id number] IMPRESSION: 1. No acute fracture. MRI would be recommended if clinical concern for fracture persists. 2. The distal and of a right ureteral stent is redemonstrated. 3. Incidental/nonacute findings are listed in the report.
[2022-02-02 22:15] VITALS: RESP 16
[2022-02-02] MEDS: oxyCODONE-APAP 5-325 mg Tablet 1 TAB PO (22:15)
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
== END 2022-02-03 00:05 | disposition home or self-care (01) ==
PROVIDERS: Emergency Provider Emergency Medicine; PCP Nurse Practitioner Family
DX: R10.2 Pelvic and perineal pain (principal); F33.2 Major depressive disorder, recurrent severe without psychotic features; I10 Essential (primary) hypertension; F17.210 Nicotine dependence, cigarettes, uncomplicated
CPT/HCPCS: 72170; 99283

== ENCOUNTER 2022-02-07 20:39 | Emergency (ER) | payer MEDICARE, MEDICAID, SELFPAY ==
[2022-02-07 21:07] VITALS: BP 170/92; PULSE 93; RESP 17; TEMP 36.8; O2SAT 97; BMI 33.5
[2022-02-08 00:57] VITALS: BP 154/93; PULSE 75; RESP 18; TEMP 36.4; O2SAT 100
--- NOTE | 2022-02-08 00:57 | W.ED.GENADLT ---
HPI - General Adult General: Chief complaint: General Medical Stated complaint: low back pain Time Seen by Provider: 02/08/22 00:55 History of Present Illness: 41-year-old female comes in today with complaints of back pain and leg swelling bilaterally. Patient appears nontoxic. Patient does appear in mild to moderate pain. Bilateral lower extremities have mild erythema and swelling. Associated symptoms: Deny chest pain or dyspnea Review of Systems General: Reports: 10 or more systems reviewed and unremarkable except in HPI and below Card: Denies: chest pain Resp: Denies: dyspnea GI: Denies: abdominal pain Musc: Reports: back pain PFSH ED PFSH: Medical History Abnormal uterine bleeding (AUB) Asthma Benign essential HTN Bilateral primary osteoarthritis of knee DDD (degenerative disc disease) Fatty infiltration of liver Gender dysphoria Hypothyroidism Intervertebral disc disorders with radiculopathy, lumbar region Major depressive disorder, recurrent severe without psychotic features Methamphetamine dependence, episodic Morbid obesity with BMI of 50.0-59.9, adult Nicotine dependence, cigarettes, uncomplicated Opiate abuse, episodic Psychiatric care Pyuria Uncontrolled type 2 diabetes mellitus, without long-term current use of insulin Urinary incontinence Surgical History History of endometrial biopsy (04/13/20) benign endocervical epithelium Hx of foot surgery S/P laparoscopic appendectomy (04/19/20) Family History Mother Diabetes Other Heart disease Social History Smoking and tobacco status: current some day smoker cigarettes Packs smoked per day: 0.5 Years cigarettes smoked: 20 Alcohol intake: current Alcohol intake frequency: holidays/special occasions only Alcohol type: beer and hard liquor Household members: other Details: partner and her mom History of recent travel: No Current gender identity: Male and Other Gender Identity Comment: Goes by Saul, considering formal transition Female Reproductive History: Date of last menstrual period: 06/30/21 Physical Exam Const: COMMON NORMALS: alert HENMT: COMMON NORMALS: normocephalic HEAD & SCALP: normocephalic Neck/C-Spine: COMMON NORMALS: full ROM Resp: COMMON NORMALS: normal respiratory effort and clear to auscultation bilaterally AUSCULTATION: clear to auscultation bilaterally Cardio: COMMON NORMALS: regular rate RATE: regular rate Back/Pelvis: THORACIC SPINE/UPPER BACK: No thoracic spinal tenderness and Yes paraspinal muscle tenderness LUMBAR SPINE/LOWER BACK: No lumbar spinal tenderness and Yes paraspinal muscle tenderness Extremity: COMMON NORMALS: no pedal edema GENERAL: Yes edema (Bilateral lower extremities with mild erythema anteriorly) Neuro: SENSORIUM/ORIENTATION: Yes alert Course Vital Signs: Vital signs: Vital Signs Temperature 97.5 F L 02/08/22 00:57 Pulse Rate 75 02/08/22 00:57 Respiratory Rate 18 02/08/22 00:57 Blood Pressure 154/93 02/08/22 00:57 Pulse Oximetry 100 02/08/22 00:57 [facility] - General Adult Medical Decision Making Patient comes in today with bilateral lower extremity swelling and redness. Patient also complains of back pain. On exam respirations are even lungs are clear to auscultation. Patient has +1 edema to bilateral lower extremities with erythema. Patient last time was seen by me he had a pretty significant urinary tract infection, patient otherwise had been seen for depression. Differential diagnosis includes but not limited to stasis dermatitis, peripheral edema, heat edema, renal insufficiency, UTI. Patient refused blood work and we were unable to address any renal dysfunction. Urinalysis was completed and showed significant improvement over the last urine sample but continues to have a large amount of white blood cells. Patient was redosed with Rocephin 2 g IM for treatment of urinary tract infection due to patient's known inability to get prescriptions filled. Patient was also given some hydrocodone for her pain. Patient was recommended to follow-up with primary care. Patient was also given Dr. Aguila's office to follow-up regarding her stent removal. Lab Data Laboratory Results Urine Color Yellow (Yellow) 02/08/22 02:00 Urine Appearance Clear (CLEAR) 02/08/22 02:00 Urine pH 5 (5-7) 02/08/22 02:00 Ur Specific [place] 1.030 (1.005-1.030) 02/08/22 02:00 Urine Protein 1+ (Negative) H 02/08/22 02:00 Urine Glucose (UA) Norm (Normal) 02/08/22 02:00 Urine Ketones Negative (Negative) 02/08/22 02:00 Urine Blood 2+ (Negative) H 02/08/22 02:00 Urine Nitrate Negative (Negative) 02/08/22 02:00 Urine Bilirubin Neg (Negative) 02/08/22 02:00 Urine Urobilinogen Norm mg/dL (Negative) 02/08/22 02:00 Ur Leukocyte Esterase 2+ (Negative) H 02/08/22 02:00 Urine RBC 0-4 /hpf (0-2) H 02/08/22 02:00 Urine WBC 55-80 /hpf (0-5) H 02/08/22 02:00 Ur Squamous Epith Cells 10-15 /hpf (0-5) H 02/08/22 02:00 Amorphous Sediment Not Reportable 02/08/22 02:00 Urine Bacteria Trace /hpf (NONE) 02/08/22 02:00 Urine Mucus Trace /hpf 02/08/22 02:00 Discharge Plan Discharge Patient Disposition: Home Clinical Impression: PVD (peripheral vascular disease), Bilateral leg pain UTI (urinary tract infection) Qualifiers: Urinary tract infection type: site unspecified Hematuria presence: without hematuria Qualified Code(s): N39.0 - Urinary tract infection, site not specified Condition: Stable Prescriptions: New cephalexin 500 mg capsule 500 mg PO TID 7 Days Qty: 21 0RF Continued hydrocodone-acetaminophen 5-325 mg tablet 1 tab PO Q6H PRN (Reason: pain) Qty: 7 0RF No Action meloxicam 15 mg tablet 15 mg PO DAILY PRN (Reason: muscle spasm) 0RF trazodone 150 mg tablet 150 mg PO BEDTIME Qty: 30 1RF albuterol sulfate 90 mcg/actuation HFA aerosol inhaler 2 puff INHALATION Q6H PRN (Reason: Shortness Of Breath) 0RF paroxetine HCl [Paxil] 20 mg tablet 20 mg PO QAM 0RF sennosides-docusate sodium [Senna-S] 8.6-50 mg tablet 1 tab-cap PO BID PRN (Reason: constipation) Qty: 20 0RF ferrous sulfate [Feosol] 325 mg (65 mg iron) tablet 325 mg PO DAILY Qty: 60 2RF Tylenol Ex Str Rapid Release 500 mg Tablet 1,500 mg PO Q4H PRN (Reason: Pain) 0RF Percocet 5-325 mg tablet 1 tab PO Q8H PRN (Reason: pain) Qty: 8 0RF ketorolac 10 mg tablet 10 mg PO TID PRN (Reason: pain) Qty: 10 0RF Discharge Orders: Discharge ED (Routine); Ordered 02/08/22 Ordered By: Sukhi Vigil Referrals: Clarice Guido FNP [Primary Care Provider] - Vinicius Aguila MD [Physician] - Discharge Diet: Usual diet Discharge Activity: Increase activity as tolerated Patient Instructions: Edema (ED), Opioid Safety Activity Restrictions/Additional Instructions: Elevate legs is much as possible. Make sure to stay well-hydrated during the summer heat. Take antibiotics as directed. Follow-up with primary care for further instructions. Return to ER for new concerns. Coding Level of Care Code ED [employer] Social Media Manager for Milagro Lao
[2022-02-08] MEDS: HYDROcodone-acetaminophen 5-325 mg Tablet 1 TAB PO (01:10)
[2022-02-08 02:13] LABS: Add Urine Microscopic? YES; Bilirubin Urine Neg (Negative); Blood Urine 2+ (Negative); Glucose Urine UA Norm (Normal); Ketones Urine Negative (Negative); Leukocyte Esterase Urine 2+ (Negative); Nitrate Urine Negative (Negative); Protein Urine 1+ (Negative); RBC Urine 0-4 /hpf (0-2); Urine Appearance Clear (CLEAR); Urine Color Yellow (Yellow); Urobilinogen Urine Norm (Negative); WBC Urine 55-80 /hpf (0-5); pH Urine 5 (5-7)
[2022-02-08 02:14] LABS: Add Urine Culture? No; Bacteria Urine TRACE /hpf; Mucus Urine TRACE /hpf
--- NOTE | 2022-02-08 10:05 | DCPLANNER ---
Addendum entered by Karla Marie 02/14/22 09:28: [place] out of state, major case detective sent message to the front office of urology to cancel the referral at this time. Original Note: field manager had message to schedule a follow up appointment for patient with urology. field manager sent patients information to the front office staff at urology. Patients information will be printed and reviewed. Clinic will call patient with appointment information.
== END 2022-02-08 03:07 | disposition home or self-care (01) ==
PROVIDERS: Emergency Provider Nurse Practitioner Family; PCP Nurse Practitioner Family
DX: I73.9 Peripheral vascular disease, unspecified (principal); N39.0 Urinary tract infection, site not specified; M79.605 Pain in left leg; M79.604 Pain in right leg; I10 Essential (primary) hypertension; E11.9 Type 2 diabetes mellitus without complications; F17.210 Nicotine dependence, cigarettes, uncomplicated
CPT/HCPCS: 81001; 96372; 99284; J0696

== ENCOUNTER 2022-02-10 12:45 | Emergency (ER) | payer MEDICARE, MEDICAID, SELFPAY ==
[2022-02-10 13:15] VITALS: BP 159/95; PULSE 81; RESP 18; TEMP 36.6; O2SAT 92; BMI 34.0
--- NOTE | 2022-02-10 14:47 | W.ED.GENADLT ---
HPI - General Adult General: Chief complaint: General Medical Stated complaint: ALISA ANKLE SWELLING Time Seen by Provider: 02/10/22 14:43 Source: patient Mode of arrival: EMS Limitations: no limitations History of Present Illness: 41-year-old homeless female presents to the ER today for bilateral lower extremity swelling x1 week. Patient reports she currently has no place to live and no place to get her feet up instead of the heat. She reports the swelling is excessive she has never had anything like this before. Patient denies any shortness of breath associated with it. She reports pain from the swelling. She reports redness in the lower legs. Patient reports she has a place to stay in [place] but cannot find a ride to get there. Patient reports she is supposed to go on a bus trip in about a week to [place] but is concerned with the swelling in her legs. Patient denies taking anything for swelling. Review of Systems General: Reports: 10 or more systems reviewed and unremarkable except in HPI and below PFSH ED PFSH: Medical History Abnormal uterine bleeding (AUB) Asthma Benign essential HTN Bilateral primary osteoarthritis of knee DDD (degenerative disc disease) Fatty infiltration of liver Gender dysphoria Hypothyroidism Intervertebral disc disorders with radiculopathy, lumbar region Major depressive disorder, recurrent severe without psychotic features Methamphetamine dependence, episodic Morbid obesity with BMI of 50.0-59.9, adult Nicotine dependence, cigarettes, uncomplicated Opiate abuse, episodic Psychiatric care Pyuria Uncontrolled type 2 diabetes mellitus, without long-term current use of insulin Urinary incontinence Surgical History History of endometrial biopsy (04/13/20) benign endocervical epithelium Hx of foot surgery S/P laparoscopic appendectomy (04/19/20) Family History Mother Diabetes Other Heart disease Social History Smoking and tobacco status: current some day smoker cigarettes Packs smoked per day: 0.5 Years cigarettes smoked: 20 Alcohol intake: current Alcohol intake frequency: holidays/special occasions only Alcohol type: beer and hard liquor Household members: other Details: partner and her mom History of recent travel: No Current gender identity: Male and Other Gender Identity Comment: Goes by Saul, considering formal transition Female Reproductive History: Date of last menstrual period: 06/30/21 Physical Exam Const: COMMON NORMALS: no acute distress, patient oriented x3, no limitations, alert and well nourished Resp: COMMON NORMALS: normal respiratory effort EFFORT & INSPECTION: Yes able to speak in complete sentences Cardio: COMMON NORMALS: regular rate and regular rhythm; negative for No murmurs present (Cardio) RATE: regular rate RHYTHM: regular rhythm OTHER: 3+ pitting edema bilaterally Extremity: NARRATIVE EXTREMITY EXAM: Patient has +3 pitting edema bilateral lower extremities with some erythema on the anterior lower tibias. No open sores are noted. Neuro: COMMON NORMALS: patient oriented x3 SENSORIUM/ORIENTATION: Yes alert Psych: COMMON NORMALS: speech normal APPEARANCE: Yes disheveled ATTITUDE: Yes agitated and Yes hostile ACTIVITY/MOTOR BEHAVIOR: Yes fidgeting, Yes restless and Yes Avoids eye contact (attititude/behavior) SPEECH: Yes normal speech MOOD & AFFECT: Yes irritable Skin: NARRATIVE SKIN EXAM: Some erythema noted on anterior tibias bilaterally. No open sores noted. No rashes. Course ED course: 41-year-old female presents to the ER via EMS today for bilateral lower extremity swelling. Patient is homeless and reports she has nowhere to stay and nowhere to get out of the heat. She reports she cannot get her feet up to get the swelling out of them. She reports they have never been like this before and are painful. Patient reports she does not want to take diuretics because she has nowhere to urinate. She reports she wants to get [place] but has no ride. Patient denies any shortness of breath. We will get basic labs today. Patient is very agitated and not willing to listen to suggestions about diuretics and removing fluid from her lower legs. She wants us to do something about her living situation. Likely this is a benign issue due to some peripheral vascular disease and unhealthy living habits. Reevaluation(s): Reevaluation #1: Care transferred to Leah Bishop PA-C at shift change. Nurse and phlebotomoist are having trouble drawing pts labs. Waiting on lab results at this time. Time: 16:46 Vital Signs: Vital signs: Vital Signs Temperature 97.9 F 07/24/22 13:15 Pulse Rate 65 02/10/22 15:12 Respiratory Rate 18 02/10/22 15:12 Blood Pressure 148/94 02/10/22 15:12 Pulse Oximetry 100 02/10/22 15:12 MDM - General Adult Medical Decision Making 41-year-old female presents to the ER via EMS today for bilateral lower extremity swelling. Patient is homeless and reports she has nowhere to stay and nowhere to get out of the heat. She reports she cannot get her feet up to get the swelling out of them. She reports they have never been like this before and are painful. Patient reports she does not want to take diuretics because she has nowhere to urinate. She reports she wants to get [place] but has no ride. Patient denies any shortness of breath. We will get basic labs today. Patient is very agitated and not willing to listen to suggestions about diuretics and removing fluid from her lower legs. She wants us to do something about her living situation. Likely this is a benign issue due to some peripheral vascular disease and unhealthy living habits. Patient given 20 of Lasix in the ER today. She is refusing lab work at this time. Patient is a difficult stick however multiple people have tried and are unable to get it other than the AC space which patient refuses. We will send patient home with 20 mg daily of Lasix and 10 M EQ's of potassium daily. Patient should follow-up PCP in 1 week. Return to the ER with new or worsening symptoms. Critical Care Time Critical Care Time: Critical Care Time: No Discharge Plan Discharge Patient Disposition: Home Clinical Impression: Bilateral lower extremity edema Condition: Stable Prescriptions: New Lasix 20 mg tablet 20 mg PO DAILY Qty: 30 0RF potassium chloride 10 mEq capsule, extended release 10 meq PO DAILY Qty: 30 0RF No Action meloxicam 15 mg tablet 15 mg PO DAILY PRN (Reason: muscle spasm) 0RF trazodone 150 mg tablet 150 mg PO BEDTIME Qty: 30 1RF albuterol sulfate 90 mcg/actuation HFA aerosol inhaler 2 puff INHALATION Q6H PRN (Reason: Shortness Of Breath) 0RF paroxetine HCl [Paxil] 20 mg tablet 20 mg PO QAM 0RF sennosides-docusate sodium [Senna-S] 8.6-50 mg tablet 1 tab-cap PO BID PRN (Reason: constipation) Qty: 20 0RF ferrous sulfate [Feosol] 325 mg (65 mg iron) tablet 325 mg PO DAILY Qty: 60 2RF Tylenol Ex Str Rapid Release 500 mg Tablet 1,500 mg PO Q4H PRN (Reason: Pain) 0RF Percocet 5-325 mg tablet 1 tab PO Q8H PRN (Reason: pain) Qty: 8 0RF ketorolac 10 mg tablet 10 mg PO TID PRN (Reason: pain) Qty: 10 0RF cephalexin 500 mg capsule 500 mg PO TID 7 Days Qty: 21 0RF hydrocodone-acetaminophen 5-325 mg tablet 1 tab PO Q6H PRN (Reason: pain) Qty: 7 0RF Discharge Orders: Discharge ED (Routine); Ordered 02/10/22 Ordered By: Edelmira Ellsworth Referrals: Clarice Guido, COMPOSITION PROFESSOR [Primary Care Provider] - Discharge Diet: Usual diet Discharge Activity: Resume usual activity Patient Instructions: Opioid Safety Activity Restrictions/Additional Instructions: Take Lasix and potassium as prescribed. Follow-up with PCP in 1 week. Return to the ER with new or worsening symptoms. Coding Level of Care Code ED Hand Former Helper for Lashong Fwd Exam Expanded Problem Focused
[2022-02-10 15:12] VITALS: BP 148/94; PULSE 65; RESP 18; O2SAT 100
[2022-02-10] MEDS: FUROsemide 20 mg Tablet PO (15:17)
--- NOTE | 2022-02-10 17:05 | PC.NURSE ---
Pt is very depressed and sad. Hx of lower edema, refuses to take Lasix because she homeless and no where to void. Refuses to allow IV or straight stick in AC of her arms. States if and when she gets discharged she will sleep and use the ER lobby bathroom. Is very tearful and sad.
[2022-02-10 17:08] VITALS: BP 142/67; PULSE 67; RESP 64; O2SAT 95
--- NOTE | 2022-02-13 13:18 | PC.SOCIAL ---
Ethan, [employer] pensions retirement plan specialist asks VINCENT to help arrange patient's bus ticket to [facility]. VINCENT located patient and spoke with her about getting a ticket this evening. She states that no one has been listening to her and that she needs a shower, clean clothes, and a bed before she can get on a bus. Patient was provided a shower and clean clothes. Bus ticket purchased for patient from [place], [place] to [place], [place]. Transportation from [facility] to [place] arranged to [facility].
== END 2022-02-10 17:11 | disposition home or self-care (01) ==
PROVIDERS: Emergency Provider Physician Assistant; PCP Nurse Practitioner Family
DX: R60.0 Localized edema (principal); I10 Essential (primary) hypertension; E11.9 Type 2 diabetes mellitus without complications; F17.210 Nicotine dependence, cigarettes, uncomplicated
CPT/HCPCS: 99283

== ENCOUNTER 2022-10-27 20:34 | Emergency (ER) | payer MEDICARE, MEDICAID, SELFPAY ==
--- NOTE | 2022-10-27 20:37 | XRR_ITS ---
PROCEDURE INFORMATION: Exam: XR Left Knee Exam date and time: 10/27/2022 9:03 PM Age: 41 years old Clinical indication: Injury or trauma; Fall; Blunt trauma; Knee; Left TECHNIQUE: Imaging protocol: Radiologic exam of the left knee. Views: 3 views. COMPARISON: CR (LOW EXM, ) 06/23/2021 4:17 AM FINDINGS: Bones/joints: Moderate-severe lateral joint compartment narrowing. Tricompartmental osteophytes and subchondral sclerosis consistent with osteoarthritis. No acute fracture dislocation. No significant joint effusion. Productive changes are also seen at the proximal tibia fibular joint. Soft tissues: Normal. Other findings: Three views submitted. XR/XR knee LT 3V* [id number] IMPRESSION: No acute findings. Degenerative changes as described.
[2022-10-27 20:48] VITALS: BP 138/95; PULSE 104; RESP 18; TEMP 36.7; O2SAT 96
--- NOTE | 2022-10-27 20:55 | W.ED.EXTPRO ---
HPI - Extremity Problem General: Chief complaint: Extremity Injury, Lower Stated complaint: fall, left knee pain Time Seen by Provider: 10/27/22 20:53 History of Present Illness: 41-year-old female comes in today with complaints of pain to the left knee. Patient reports falling 2 days ago and is able to ambulate but has some significant discomfort to the medial aspect of the knee. Patient does have a area of bruising to the knee. No obvious deformity is noted. Patient does have a history of osteoarthritis. Associated symptoms: Deny chest pain or fever(s) Review of Systems Const: Denies: fever(s) Card: Denies: chest pain Resp: Denies: dyspnea Musc: Reports: extremity pain (Left knee pain) PFS ED PFSH: Medical History (Updated 10/27/22 @ 21:18 by SUSAN Chou) Abnormal uterine bleeding (AUB) Asthma Benign essential HTN Bilateral primary osteoarthritis of knee DDD (degenerative disc disease) Fatty infiltration of liver Gender dysphoria Hypothyroidism Intervertebral disc disorders with radiculopathy, lumbar region Major depressive disorder, recurrent severe without psychotic features Methamphetamine dependence, episodic Morbid obesity with BMI of 50.0-59.9, adult Nicotine dependence, cigarettes, uncomplicated Opiate abuse, episodic Pyuria Uncontrolled type 2 diabetes mellitus, without long-term current use of insulin Urinary incontinence Surgical History History of endometrial biopsy (04/13/20) benign endocervical epithelium Hx of foot surgery S/P laparoscopic appendectomy (04/19/20) Family History Mother Diabetes Other Heart disease Social History Smoking and tobacco status: current some day smoker cigarettes Packs smoked per day: 0.5 Years cigarettes smoked: 20 Alcohol intake: current Alcohol intake frequency: holidays/special occasions only Alcohol type: beer and hard liquor Household members: other Details: partner and her mom Current gender identity: Male and Other Gender Identity Comment: Goes by Saul, considering formal transition Physical Exam Const: COMMON NORMALS: alert HENMT: COMMON NORMALS: normocephalic HEAD & SCALP: normocephalic Neck/C-Spine: COMMON NORMALS: full ROM Resp: COMMON NORMALS: normal respiratory effort Back/Pelvis: COMMON NORMALS: thoracic and lumbar spine normal to inspection Extremity: LEFT LOWER EXTREMITY: Yes knee joint (Anterior mild swelling with bruising to the medial aspect) Left knee: Yes inspection, Yes palpation and Yes ROM (Normal range of motion and weightbearing) Neuro: SENSORIUM/ORIENTATION: Yes alert Skin: COMMON NORMALS: turgor normal GENERAL SKIN EXAM: turgor normal Course Vital Signs: Vital signs: Vital Signs Temperature 98.0 F 10/27/22 20:48 Pulse Rate 104 H 10/27/22 20:48 Respiratory Rate 18 10/27/22 20:48 Blood Pressure 138/95 10/27/22 20:48 Pulse Oximetry 96 10/27/22 20:48 Oxygen Delivery Me thod 10/27/22 20:48 MDM - Extremity (Nontraumatic) Medical Decision Making 41-year-old female comes in today for complaints of injury to the left knee. On exam patient has some anterior swelling and some bruising to the left knee. Patient has normal range of motion and is able to bear weight. Differential diagnosis includes fracture, sprain, contusion. X-rays noted degenerative joint disease without signs of dislocation or fracture. Reviewed exam with patient with recommendations for treatment of contusion and osteoarthritis. Patient reported understanding. Lab Data Radiology Impressions Knee X-Ray 10/27/22 20:37 IMPRESSION: No acute findings. Degenerative changes as described. Discharge Plan Discharge Patient Disposition: Home Clinical Impression: Contusion of knee, left Qualifiers: Encounter type: initial encounter Qualified Code(s): S80.02XA - Contusion of left knee, initial encounter Degenerative joint disease of knee, left Qualifiers: Osteoarthritis type: primary Qualified Code(s): M17.12 - Unilateral primary osteoarthritis, left knee Condition: Stable Prescriptions: New hydrocodone-acetaminophen 5-325 mg tablet 1 tab PO Q8H PRN (Reason: pain (scale score 7-10)) Qty: 10 0RF Discontinued oxycodone-acetaminophen [Percocet] 5-325 mg tablet 1 tab PO Q8H PRN (Reason: pain) Qty: 8 0RF No Action meloxicam 15 mg tablet 15 mg PO DAILY PRN (Reason: muscle spasm) trazodone 150 mg tablet 150 mg PO BEDTIME Qty: 30 1RF albuterol sulfate 90 mcg/actuation HFA aerosol inhaler 2 puff INHALATION Q6H PRN (Reason: Shortness Of Breath) paroxetine HCl [Paxil] 20 mg tablet 20 mg PO QAM sennosides-docusate sodium [Senna-S] 8.6-50 mg tablet 1 tab-cap PO BID PRN (Reason: constipation) Qty: 20 0RF ferrous sulfate [Feosol] 325 mg (65 mg iron) tablet 325 mg PO DAILY Qty: 60 2RF Tylenol Ex Str Rapid Release 500 mg Tablet 1,500 mg PO Q4H PRN (Reason: Pain) ketorolac 10 mg tablet 10 mg PO TID PRN (Reason: pain) Qty: 10 0RF hydrocodone-acetaminophen 5-325 mg tablet 1 tab PO Q6H PRN (Reason: pain) Qty: 7 0RF Lasix 20 mg tablet 20 mg PO DAILY Qty: 30 0RF potassium chloride 10 mEq capsule, extended release 10 meq PO DAILY Qty: 30 0RF Discharge Orders: Discharge ED (Routine); Ordered 10/27/22 Ordered By: Sukhi Vigil Referrals: Clarice Guido, MEDICAL ASSISTANT INSTRUCTOR [Primary Care Provider] - Discharge Diet: Usual diet Discharge Activity: Increase activity as tolerated Patient Instructions: Opioid Safety, Pain Management Activity Restrictions/Additional Instructions: Home and rest. Activity as tolerated. Continue with meloxicam for pain along with acetaminophen. Use hydrocodone for severe pain. Use ice or heat for further pain relief. Drink plenty of water with medication. Follow-up with primary care for further instruction. Return to ED for new concerns. Coding Level of Care Code ED Mailing Section Clerk for Milagro Lao
[2022-10-27] MEDS: HYDROcodone-acetaminophen 5-325 mg Tablet 1 TAB PO (21:24)
== END 2022-10-27 21:27 | disposition home or self-care (01) ==
PROVIDERS: Emergency Provider Nurse Practitioner Family; PCP Nurse Practitioner Family
DX: S80.02XA Contusion of left knee, initial encounter (principal); M17.12 Unilateral primary osteoarthritis, left knee; I10 Essential (primary) hypertension; E11.9 Type 2 diabetes mellitus without complications; F17.210 Nicotine dependence, cigarettes, uncomplicated; W19.XXXA Unspecified fall, initial encounter
CPT/HCPCS: 73562; 99283

== ENCOUNTER 2022-11-07 16:12 | Emergency (ER) | payer MEDICARE, MEDICAID, SELFPAY ==
[2022-11-07 16:29] VITALS: BP 158/97; PULSE 80; RESP 16; TEMP 36.7; O2SAT 94
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
[2022-11-07 18:44] VITALS: BP 155/96; PULSE 77; RESP 16; O2SAT 98
[2022-11-07] MEDS: ketorolac 60 mg/2 mL INJ IM (18:50)
[2022-11-07] MEDS: tetanus-dipt-pertussis 0.5 mL SDV IM (18:50)
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
--- NOTE | 2022-11-08 15:06 | DCPLANNER ---
Addendum entered by Karla Marie 11/14/22 08:50: Patient had a follow up appointment scheduled with Dr. Leary - patient did not attend appointment. Original Note: communications manager called patient due to no primary care physician. communications manager called [facility], gave clinic patients information, a follow up appointment was scheduled for Sunday, November 13, 2022 at 3:[address] Leary. Patient is aware of appointment.
== END 2022-11-07 20:27 | disposition home or self-care (01) ==
PROVIDERS: Emergency Provider Nurse Practitioner Family
DX: S06.0X0A Concussion without loss of consciousness, initial encounter (principal); Y04.2XXA Assault by strike against or bumped into by another person, initial encounter; I10 Essential (primary) hypertension; E11.9 Type 2 diabetes mellitus without complications; F17.210 Nicotine dependence, cigarettes, uncomplicated; Z23 Encounter for immunization; S00.81XA Abrasion of other part of head, initial encounter
CPT/HCPCS: 70150; 90471; 90715; 96372; 99284; J1885

== ENCOUNTER 2022-12-01 09:17 | Emergency (ER) | payer MEDICARE, MEDICAID, SELFPAY ==
[2022-12-01] VITALS (8 sets, daily range): BP systolic 144–206; BP diastolic 78–150; PULSE 68–73; RESP 17; TEMP 36.4; O2SAT 95–98; BMI 41.0
--- NOTE | 2022-12-01 09:21 | PC.NURSE ---
This nurse (Avila Isabel) is unable to assume care for this patient as I am with a more critical patient. Charge nurse (Katy) informed.
--- NOTE | 2022-12-01 09:37 | XRR_ITS ---
PROCEDURE INFORMATION: Exam: XR Thoracic Spine Exam date and time: 12/01/2022 9:47 AM Age: 42 years old Clinical indication: Pain in thoracic spine; Other: N/a TECHNIQUE: Imaging protocol: Radiologic exam of the thoracic spine. Views: 3 views. COMPARISON: CT abdomen pelvis w con* [id number] 11/05/2021 6:44 PM FINDINGS: Bones/joints: Degenerative change and prominent thoracic dextroscoliosis. Anatomic alignment. Soft tissues: Unremarkable as visualized. XR/XR thoracic spine 3V* [id number] IMPRESSION: Degenerative change and prominent thoracic dextroscoliosis.
--- NOTE | 2022-12-01 09:38 | ED_ITS ---
HPI - Back Pain/Injury General: Chief Complaint: Back Pain/Injury Stated Complaint: BACK PAIN; N/V Time Seen by Provider: 12/01/22 09:19 Source: patient and EMS Mode of arrival: EMS Limitations: no limitations History of Present Illness: 42-year-old female has a history of chronic back pain patient states she has been having some right thoracic back pain over the last 3 days it got much worse overnight she states pain is currently an 8 out of 10 she had some nausea and vomiting from the pain felt slightly dizzy. Denies any headache denies any bowel or bladder incontinence denies any dysuria denies any abdominal pain or fevers. Denies any recent injury. Associated symptoms: Reports nausea and vomiting; Deny abdominal pain, chills, dysuria or fever(s) Review of Systems Const: Denies: fever(s), chills, body aches or change in appetite Eyes: Denies: blurry vision or eye discomfort ENMT: Denies: throat pain or dental pain Card: Denies: chest pain Resp: Denies: dyspnea GI: Reports: nausea and vomiting; Denies: abdominal pain or diarrhea : Denies: dysuria Musc: Reports: back pain; Denies: neck pain Skin/Breast: Denies: rash Neuro: Denies: headache(s) PFSH ED PFSH: Medical History Abnormal uterine bleeding (AUB) Asthma Benign essential HTN Bilateral primary osteoarthritis of knee DDD (degenerative disc disease) Fatty infiltration of liver Gender dysphoria Hypothyroidism Intervertebral disc disorders with radiculopathy, lumbar region Major depressive disorder, recurrent severe without psychotic features Methamphetamine dependence, episodic Morbid obesity with BMI of 50.0-59.9, adult Nicotine dependence, cigarettes, uncomplicated Opiate abuse, episodic Pyuria Uncontrolled type 2 diabetes mellitus, without long-term current use of insulin Urinary incontinence Surgical History History of endometrial biopsy (04/13/20) benign endocervical epithelium Hx of foot surgery S/P laparoscopic appendectomy (04/19/20) Family History Mother Diabetes Other Heart disease Social History Smoking and tobacco status: current some day smoker cigarettes Packs smoked per day: 0.5 Years cigarettes smoked: 20 Alcohol intake: current Alcohol intake frequency: holidays/special occasions only Alcohol type: beer and hard liquor Substance/Drug Use: current Substance/Drug use frequency: few times a month Other substance/drug use details: Occasional marijuana Household members: other Details: partner and her mom Current gender identity: Male and Other Gender Identity Comment: Goes by Saul, considering formal transition Physical Exam Const: COMMON NORMALS: no acute distress and patient oriented x3 HENMT: COMMON NORMALS: normocephalic and atraumatic HEAD & SCALP: normocephalic and atraumatic Eye: COMMON NORMALS: conjunctivae normal CONJUNCTIVA: Yes conjunctivae normal Neck/C-Spine: COMMON NORMALS: full ROM and supple Chest: COMMONS NORMALS: normal inspection of the chest and normal palpation of entire chest wall Resp: COMMON NORMALS: normal respiratory effort, No retractions, No use of accessory muscles and clear to auscultation bilaterally AUSCULTATION: clear to auscultation bilaterally Cardio: COMMON NORMALS: regular rate, regular rhythm and No murmurs present (Cardio) RATE: regular rate RHYTHM: regular rhythm GI: COMMON NORMALS: Normal to inspection, nondistended, normoactive bowel sounds present, Soft to palpation, non-tender and no masses PALPATION: Yes Soft to palpation Back/Pelvis: OTHER: Point tender to right thoracic region Extremity: COMMON NORMALS: normal to inspection and full ROM Neuro: COMMON NORMALS: patient oriented x3, moves all extremities and no focal motor deficits Psych: COMMON NORMALS: mental status grossly normal, Normal thought process present and cooperative THOUGHT PROCESS: Normal thought process present Skin: COMMON NORMALS: no rashes or lesions noted and no wounds GENERAL SKIN EXAM: no rashes or lesions noted Course Vital Signs: Vital signs: Vital Signs Temperature 97.6 F 12/01/22 09:19 Pulse Rate 68 12/01/22 09:19 Respiratory Rate 17 12/01/22 09:19 Blood Pressure 146/78 12/01/22 12:20 Pulse Oximetry 95 12/01/22 12:20 Oxygen Delivery Me thod Room Air 12/01/22 09:19 MDM - Back Pain/Injury Medical Decision Making Patient presents here with back pain on exam it is likely muscular in nature she does have a urinary tract infection as well she does have some hydronephrosis on the right no signs of a kidney stone or infected kidney stone we will start on antibiotics along with pain meds we will get her follow-up with Dr. Aguila of urology she has no signs of sepsis here did inform her if she has any vomiting or fever she is to return she understands agrees to plan. Medical Records I reviewed the patient's medical records. Labs I reviewed the patient's lab results. 12/01/22 10:23 12/01/22 10:23 Radiology Impressions Thoracic Spine X-Ray 12/01/22 09:37 IMPRESSION: Degenerative change and prominent thoracic dextroscoliosis. Abdomen/Pelvis CT 12/01/22 11:28 IMPRESSION: 1. Marked right hydronephrosis, without obstructing urolithiasis. 2. Additional findings as described above. Laboratory Results WBC 12.9 10^3/uL (4.0-10.0) H 12/01/22 10:23 RBC 4.95 10^6/uL (4.1-5.3) 12/01/22 10:23 Hgb 12.8 g/dL (11.5-15.3) 12/01/22 10:23 Hct 40.9 % (37.0-47.0) 12/01/22 10:23 MCV 82.6 fl (81-99) 12/01/22 10:23 MCH 25.9 pg (28.0-34.0) L 12/01/22 10:23 MCHC 31.3 g/dL (30.0-36.0) 12/01/22 10:23 RDW 18.7 % (12.1-15.1) H 12/01/22 10:23 Plt Count 252 10^3/cmm (130-400) 12/01/22 10:23 MPV 10.6 fL (7.4-10.4) H 12/01/22 10:23 Neut % (Auto) 87.8 % 12/01/22 10:23 Lymph % (Auto) 5.4 % 12/01/22 10:23 [place] % (Auto) 5.4 % 12/01/22 10:23 Eos % (Auto) 1.0 % 12/01/22 10:23 Baso % (Auto) 0.2 % 12/01/22 10:23 Neut # (Auto) 11.34 10^3/uL (1.8-7.7) H 12/01/22 10:23 Lymph # (Auto) 0.7 10^3/uL (0.8-4.8) L 12/01/22 10:23 [place] # (Auto) 0.7 10^3/uL (0.2-0.9) 12/01/22 10:23 Eos # (Auto) 0.1 10^3/uL (0.0-0.8) 12/01/22 10:23 Baso # (Auto) 0.0 10^3/uL (0.0-0.1) 12/01/22 10:23 Nucleated RBC % (auto) 0 % 12/01/22 10: Nucleated RBCs # 0.0 /100WBC 12/01/22 10:23 Sodium 139 mmol/L (136-145) 12/01/22 10:23 Potassium 3.7 mmol/L (3.5-5.1) 12/01/22 10:23 Chloride 104 mmol/L (98-107) 12/01/22 10:23 Carbon Dioxide 22 mmol/L (22-29) 12/01/22 10:23 Anion Gap 16.7 (5-19) 12/01/22 10:23 BUN 11 mg/dL (6-20) 12/01/22 10:23 Creatinine 0.8 mg/dL (0.5-0.9) 12/01/22 10:23 GFR Calculation 79.0 mL/min (90-130) L 12/01/22 10:23 Glucose 111 mg/dL (65-115) 12/01/22 10:23 Calculated Osmolality 288 mOsm/kg (285-295) 12/01/22 10:23 Calcium 8.9 mg/dL (8.5-10.5) 12/01/22 10:23 Total Bilirubin 0.6 mg/dL (0.15-1.2) 12/01/22 10:23 AST 14 U/L (0-32) 12/01/22 10:23 ALT 8 U/L (0-33) 12/01/22 10:23 Alkaline Phosphatase 94 U/L (35-105) 12/01/22 10:23 Total Protein 7.8 g/dL (6.6-8.7) 12/01/22 10:23 Albumin 4.2 g/dL (3.5-5.2) 12/01/22 10: Globulin 3.6 g/dL (1.3-4.6) 12/01/22 10: Lipase 14 U/L (13-60) 12/01/22 10:23 HCG, Qual Negative (Negative) 12/01/22 10:23 Urine Color Dark yellow (Yellow) 12/01/22 11:02 Urine Appearance Cloudy (CLEAR) A 12/01/22 11:02 Urine pH 5 (5-7) 12/01/22 11:02 Ur Specific [place] 1.020 (1.005-1.030) 12/01/22 11:02 Urine Protein 3+ (Negative) H 12/01/22 11:02 Urine Glucose (UA) Norm (Normal) 12/01/22 11:02 Urine Ketones Negative (Negative) 12/01/22 11:02 Urine Blood 3+ (Negative) H 12/01/22 11:02 Urine Nitrate Positive (Negative) H 12/01/22 11:02 Urine Bilirubin Neg (Negative) 12/01/22 11:02 Urine Urobilinogen Norm mg/dL (Negative) 12/01/22 11:02 Ur Leukocyte Esterase 2+ (Negative) H 12/01/22 11:02 Urine RBC Too numerous to cnt /hpf (0-2) H 12/01/22 11:02 Urine WBC Too numerous to cnt /hpf (0-5) H 12/01/22 11:02 Ur Squamous Epith Cells 0-4 /hpf (0-5) H 12/01/22 11:02 Amorphous Sediment Not Reportable 12/01/22 11:02 Urine Bacteria 3+ /hpf (NONE) H 12/01/22 11:02 Discharge Plan Discharge Patient Disposition: Home Clinical Impression: Acute cystitis, Back pain, Hydronephrosis Condition: Stable Prescriptions: New hydrocodone-acetaminophen 5-325 mg tablet 1 tab PO Q6H PRN (Reason: pain) Qty: 14 0RF levofloxacin 750 mg tablet 750 mg PO DAILY 7 Days Qty: 7 0RF No Action meloxicam 15 mg tablet 15 mg PO DAILY PRN (Reason: muscle spasm) trazodone 150 mg tablet 150 mg PO BEDTIME Qty: 30 1RF albuterol sulfate 90 mcg/actuation HFA aerosol inhaler 2 puff INHALATION Q6H PRN (Reason: Shortness Of Breath) paroxetine HCl [Paxil] 20 mg tablet 20 mg PO QAM sennosides-docusate sodium [Senna-S] 8.6-50 mg tablet 1 tab-cap PO BID PRN (Reason: constipation) Qty: 20 0RF ferrous sulfate [Feosol] 325 mg (65 mg iron) tablet 325 mg PO DAILY Qty: 60 2RF hydrocodone-acetaminophen 5-325 mg tablet 1 tab PO Q8H PRN (Reason: pain (scale score 7-10)) Qty: 10 0RF Tylenol Ex Str Rapid Release 500 mg Tablet 1,500 mg PO Q4H PRN (Reason: Pain) ketorolac 10 mg tablet 10 mg PO TID PRN (Reason: pain) Qty: 10 0RF hydrocodone-acetaminophen 5-325 mg tablet 1 tab PO Q6H PRN (Reason: pain) Qty: 7 0RF Lasix 20 mg tablet 20 mg PO DAILY Qty: 30 0RF potassium chloride 10 mEq capsule, extended release 10 meq PO DAILY Qty: 30 0RF Discharge Orders: Discharge ED (Routine); Ordered 12/01/22 Ordered By: Nolan Rodriguez Referrals: Vinicius Aguila MD [Physician] - 1-3 days Discharge Diet: Advance as tolerated Discharge Activity: Resume usual activity Patient Instructions: Urinary Tract Infection in Women (ED), Back Pain (ED) Coding Level of Care Code ED Cardiothoracic Icu Rn for Milagro Lao
[2022-12-01] MEDS: morphine 4 mg/mL SDV 1 mL IVP (10:34)
[2022-12-01] MEDS: sodium chloride 0.9% 1,000 ML 999 ML IV (10:34)
[2022-12-01] MEDS: ondansetron 2 mg/ML SDV 2 mL 4 MG IVP (10:34)
[2022-12-01 10:39] LABS: Basophils % 0.2 %; Eosinophils # 0.1 10^3/uL (0.0-0.8); Hematocrit 40.9 % (37.0-47.0); Hemoglobin 12.8 g/dL (11.5-15.3); Lymphocytes # 0.7 10^3/uL (0.8-4.8); Lymphocytes % 5.4 %; Mean Corpuscular HGB Conc 31.3 g/dL (30.0-36.0); Mean Corpuscular Hemoglobin 25.9 pg (28.0-34.0); Mean Corpuscular Volume 82.6 fl (81-99); Mean Platelet Volume 10.6 fL (7.4-10.4); Monocytes # 0.7 10^3/uL (0.2-0.9); Monocytes % 5.4 %; Neutrophils # 11.34 10^3/uL (1.8-7.7); Neutrophils % 87.8 %; Nucleated Red Blood Cells % 0 %; Platelet Count 252 10^3/cmm (130-400); Red Blood Count 4.95 10^6/uL (4.1-5.3); Red Cell Distribution Width 18.7 % (12.1-15.1); White Blood Count 12.9 10^3/uL (4.0-10.0)
[2022-12-01 10:52] LABS: HCG, Serum Qual Negative (Negative)
[2022-12-01 11:17] LABS: Alanine Aminotransferase 8 U/L (0-33); Albumin Level 4.2 g/dL (3.5-5.2); Alkaline Phosphatase 94 U/L (35-105); Aspartate Amino Transferase 14 U/L (0-32); Blood Urea Nitrogen 11 mg/dL (6-20); Calcium 8.9 mg/dL (8.5-10.5); Carbon Dioxide 22 mmol/L (22-29); Chloride 104 mmol/L (98-107); Globulin 3.6 g/dL (1.3-4.6); Glucose 111 mg/dL (65-115); Lipase 14 U/L (13-60); Osmolality Calculated 288 mOsm/kg (285-295); Sodium 139 mmol/L (136-145); Total Bilirubin 0.6 mg/dL (0.15-1.2); Total Protein 7.8 g/dL (6.6-8.7)
[2022-12-01 11:19] LABS: Anion Gap 16.7 (5-19); Potassium 3.7 mmol/L (3.5-5.1)
[2022-12-01 11:25] LABS: Protein Urine 3+ (Negative); Urine Appearance Cloudy (CLEAR); Urine Color Dark Yellow (Yellow); pH Urine 5 (5-7)
[2022-12-01 11:26] LABS: Add Urine Microscopic? YES; Bilirubin Urine Neg (Negative); Blood Urine 3+ (Negative); Glucose Urine UA Norm (Normal); Ketones Urine Negative (Negative); Leukocyte Esterase Urine 2+ (Negative); Nitrate Urine Positive (Negative); Urobilinogen Urine Norm (Negative)
[2022-12-01 11:28] LABS: RBC Urine TOO NUMEROUS TO CNT /hpf (0-2); WBC Urine TOO NUMEROUS TO CNT /hpf (0-5)
--- NOTE | 2022-12-01 11:28 | CTR_ITS ---
PROCEDURE INFORMATION: Exam: CT Abdomen And Pelvis Without Contrast Exam date and time: 12/01/2022 11:38 AM Age: 42 years old Clinical indication: Abdominal pain; Flank; Right; Prior surgery; Surgery date: 6+ months; Surgery type: Hysto; Additional info: Flank pain TECHNIQUE: Imaging protocol: Computed tomography of the abdomen and pelvis without contrast. Radiation optimization: All CT scans at this facility use at least one of these dose optimization techniques: automated exposure control; mA and/or kV adjustment per patient size (includes targeted exams where dose is matched to clinical indication); or iterative reconstruction. REPORTING DATA: Count of CT and Cardiac NM exams in prior 12 months: This patient has received 0 known CTs and 0 known cardiac nuclear medicine studies in the 12 months prior to the current study. COMPARISON: CT abdomen pelvis w con* [id number] 11/05/2021 6:44 PM RADIATION DOSE METRICS: Total DLP (mGy-cm): 1286.83 FINDINGS: Detailed evaluation of the abdominal and pelvic viscera is somewhat limited in the absence of intravenous contrast. Liver: Fatty infiltration of the liver. Gallbladder and bile ducts: Unremarkable gallbladder. Pancreas: No pancreatic mass or ductal dilatation. Spleen: Enlarged spleen measuring 14.1 cm in length. Adrenal glands: Stable left adrenal nodularity. Kidneys and ureters: Marked right hydronephrosis, without obstructing urolithiasis. Infiltration of right perinephric and periureteral fat. Stomach and bowel: Questionable wall thickening in the nondistended stomach. Colonic dilatation and prominent stool. Diverticula, without pericolonic inflammation. Appendix: Status post appendectomy. Intraperitoneal space: No significant free fluid. Vasculature: Normal caliber of the abdominal aorta. Lymph nodes: Subcentimeter lymph nodes. Urinary bladder: Nondistended bladder limiting evaluation. Reproductive: Status post hysterectomy. Endocervical air. Bones/joints: Degenerative change, disc bulging, and vacuum discs. Chronic compression deformities in the inferior thoracic spine. Soft tissues: Postoperative scarring in the anterior abdominal wall. CT/CT kidney stone [id number] IMPRESSION: 1. Marked right hydronephrosis, without obstructing urolithiasis. 2. Additional findings as described above.
[2022-12-01 11:29] LABS: Bacteria Urine 3+ /hpf; Squamous Epithelial Cell Urine 0-4 /hpf (0-5)
[2022-12-01 11:30] LABS: Add Urine Culture? Yes
[2022-12-01] MEDS: cefTRIAXone 1,000 MG in sodium chloride 0.9% (plus) 50 ML 100 MG IV (11:50)
[2022-12-01] MEDS: HYDROcodone-acetaminophen 10-325 mg Tablet 1 TAB PO (12:47)
--- NOTE | 2022-12-02 12:41 | DCPLANNER ---
Addendum entered by Karla Marie 12/04/22 13:48: Patient had a follow up appointment scheduled with urology - patient did not attend appointment. Original Note: manager of construction had message to schedule a follow up appointment for patient with urology. manager of construction sent patients information to the front office staff at urology. Patients information will be printed and reviewed. Clinic will call patient with appointment information.
--- NOTE | 2022-12-08 13:54 | DCPLANNER ---
technical training manager called patient due to no primary care physician - no answer at this time.
== END 2022-12-01 12:54 | disposition home or self-care (01) ==
PROVIDERS: Emergency Provider Emergency Medicine
DX: N30.00 Acute cystitis without hematuria (principal); N13.30 Unspecified hydronephrosis; M54.6 Pain in thoracic spine; I10 Essential (primary) hypertension; E11.9 Type 2 diabetes mellitus without complications; F17.210 Nicotine dependence, cigarettes, uncomplicated
CPT/HCPCS: 72072; 74176; 80053; 81001; 83690; 84703; 85025; 87077; 87086; 87186; 96361; 96374; 96375; 99285; J0696; J2270; J2405; J7030

== ENCOUNTER 2022-12-09 16:52 | Emergency (ER) | payer MEDICARE, MEDICAID, SELFPAY ==
[2022-12-09 16:58] VITALS: BP 165/113; PULSE 91; RESP 18; TEMP 36.7; O2SAT 97; BMI 41.8
[2022-12-09 19:01] LABS: Basophils % 0.3 %; Eosinophils # 0.1 10^3/uL (0.0-0.8); Eosinophils % 1.8 %; Hematocrit 37.1 % (37.0-47.0); Hemoglobin 11.6 g/dL (11.5-15.3); Lymphocytes # 1.6 10^3/uL (0.8-4.8); Lymphocytes % 19.7 %; Mean Corpuscular HGB Conc 31.3 g/dL (30.0-36.0); Mean Corpuscular Volume 83.2 fl (81-99); Monocytes # 0.4 10^3/uL (0.2-0.9); Monocytes % 4.6 %; Neutrophils % 72.8 %; Nucleated Red Blood Cells % 0 %; Platelet Count 290 10^3/cmm (130-400); Red Blood Count 4.46 10^6/uL (4.1-5.3); Red Cell Distribution Width 19.1 % (12.1-15.1)
[2022-12-09 19:19] LABS: Alanine Aminotransferase 9 U/L (0-33); Albumin Level 3.8 g/dL (3.5-5.2); Alkaline Phosphatase 89 U/L (35-105); Anion Gap 14.5 (5-19); Aspartate Amino Transferase 11 U/L (0-32); Blood Urea Nitrogen 20 mg/dL (6-20); Calcium 8.2 mg/dL (8.5-10.5); Carbon Dioxide 25 mmol/L (22-29); Chloride 105 mmol/L (98-107); Globulin 3.3 g/dL (1.3-4.6); Glomerular Filtration Rate 110.2 mL/min (90-130); Glucose 87 mg/dL (65-115); Lipase 23 U/L (13-60); Osmolality Calculated 292 mOsm/kg (285-295); Potassium 4.5 mmol/L (3.5-5.1); Sodium 140 mmol/L (136-145); Total Bilirubin 0.2 mg/dL (0.15-1.2); Total Protein 7.1 g/dL (6.6-8.7)
--- NOTE | 2022-12-09 21:42 | ED_ITS ---
HPI - Abdominal Pain General: Chief Complaint: Abdominal Pain Stated Complaint: rt side flank pain Time Seen by Provider: 12/09/22 21:25 History of Present Illness: Patient is a 42-year-old female who comes to the ED with right flank pain. Patient was seen here in the ED back on December 01, 2022 and diagnosed with acute cystitis. She was sent home with a prescription for hydrocodone for pain and an antibiotic. Patient took the antibiotic and hydrocodone for 3 days and then she lost her prescriptions. She said after taking the antibiotic for 3 days her symptoms were getting better but now that she has not been taking it since she lost the medication her right flank pain is coming back and getting worse. She rates her right flank pain currently an 8 out of 10. She does endorse having some visible blood in urine and says her urine has a little reddish tinge to it. Endorses nausea as well. Denies any vaginal discharge, dysuria, fevers or vomiting. Past surgical history of appendectomy, total hysterectomy and right ureter stent that was removed back in April 2022. Associated Symptoms: Reports hematuria; Denies chills, constipation, diarrhea, dysuria, fever(s), hematochezia, nausea and vomiting Review of Systems Const: Denies: fever(s), chills or fatigue Eyes: Denies: change in vision or eye discomfort ENMT: Denies: throat pain, odynophagia, nasal discharge or nasal congestion Card: Denies: chest pain, palpitations, edema, swelling of feet/ankles, dyspnea on exertion or orthopnea Resp: Denies: dyspnea, productive cough or non-productive cough GI: Denies: abdominal pain, nausea, vomiting, diarrhea, constipation or hematochezia : Reports: flank pain (Right flank) and hematuria; Denies: dysuria Musc: Denies: neck pain, back pain or extremity swelling Skin/Breast: Denies: rash or new lesions Neuro: Denies: headache(s), numbness in extremities or weakness in extremities [facility] ED PFSH: Medical History Abnormal uterine bleeding (AUB) Asthma Benign essential HTN Bilateral primary osteoarthritis of knee DDD (degenerative disc disease) Fatty infiltration of liver Gender dysphoria Hypothyroidism Intervertebral disc disorders with radiculopathy, lumbar region Major depressive disorder, recurrent severe without psychotic features Methamphetamine dependence, episodic Morbid obesity with BMI of 50.0-59.9, adult Nicotine dependence, cigarettes, uncomplicated Opiate abuse, episodic Pyuria Uncontrolled type 2 diabetes mellitus, without long-term current use of insulin Urinary incontinence Surgical History History of endometrial biopsy (04/13/20) benign endocervical epithelium Hx of foot surgery S/P laparoscopic appendectomy (04/19/20) Family History Mother Diabetes Other Heart disease Social History Smoking and tobacco status: current some day smoker cigarettes Packs smoked per day: 0.5 Years cigarettes smoked: 20 Alcohol intake: current Alcohol intake frequency: holidays/special occasions only Alcohol type: beer and hard liquor Substance/Drug Use: current Substance/Drug use frequency: few times a month Other substance/drug use details: Occasional marijuana Household members: other Details: partner and her mom Current gender identity: Male and Other Gender Identity Comment: Goes by Saul, considering formal transition Physical Exam Const: COMMON NORMALS: no acute distress, patient oriented x3 and alert HENMT: COMMON NORMALS: normocephalic HEAD & SCALP: normocephalic MOUTH: Normal oral and palatal mucosa present THROAT: posterior oropharynx normal and uvula midline Neck/C-Spine: COMMON NORMALS: supple GENERAL: Yes normal visual inspection Resp: COMMON NORMALS: normal respiratory effort, No retractions, No use of ac cessory muscles and clear to auscultation bilaterally AUSCULTATION: clear to auscultation bilaterally Cardio: COMMON NORMALS: regular rate, regular rhythm, S1 normal heart sound present, S2 normal heart sound present, No gallops present (Cardio), No clicks present (Cardio), No murmurs present (Cardio) and Peripheral pulses 2+ throughout RATE: regular rate RHYTHM: regular rhythm HEART SOUNDS: S1 normal heart sound present and S2 normal heart sound present PERIPHERAL PULSES: Peripheral pulses 2+ throughout GI: COMMON NORMALS: Normal to inspection, nondistended, normoactive bowel sounds present, Soft to palpation and no masses PALPATION: Yes Soft to palpation and Yes Tenderness to palpation present (GI) (Generalized right flank tenderness) : BLADDER/KIDNEY EXAM: Yes CVA tenderness on the right Back/Pelvis: GENERAL BACK: Yes CVA tenderness LUMBAR SPINE/LOWER BACK: Yes paraspinal muscle tenderness Lumbar paraspinal muscle tenderness: right Extremity: COMMON NORMALS: normal to inspection Neuro: COMMON NORMALS: patient oriented x3 SENSORIUM/ORIENTATION: Yes alert GAIT: Yes Normal gait present Skin: GENERAL SKIN EXAM: dry skin Course Vital Signs: Vital signs: Vital Signs Temperature 98.0 F 12/09/22 16:58 Pulse Rate 64 12/10/22 01:07 Respiratory Rate 16 12/10/22 01:07 Blood Pressure 191/115 12/10/22 01:07 Pulse Oximetry 96 12/10/22 01:07 Oxygen Delivery Me thod Room Air 12/09/22 23:46 MDM - Abdominal Pain Medical Decision Making Patient is a 42-year-old female who comes to the ED with right flank pain. Patient was seen here in the ED back on December 01, 2022 and diagnosed with acute cystitis. She was sent home with a prescription for hydrocodone for pain and an antibiotic. Patient took the antibiotic and hydrocodone for 3 days and then she lost her prescriptions. She said after taking the antibiotic for 3 days her symptoms were getting better but now that she has not been taking it since she lost the medication her right flank pain is coming back and getting worse. She rates her right flank pain currently an 8 out of 10. She does endorse having some visible blood in urine and says her urine has a little reddish tinge to it. Endorses nausea as well. Denies any vaginal discharge, dysuria, fevers or vomiting. Vitals are stable. Patient had some generalized right flank tend erness along with right CVA tenderness. She does have some right lumbar paraspinal spinal muscle tenderness. rest of her exam is benign. CBC and CMP are unremarkable. UA is unremarkable. Patient was given IV dose of antibiotic to treat her previous acute cystitis that she stopped treating previously because she lost her antibiotic. She had blood pressures that shot up while here in the ED and she had a blood pressure of 214/148. She has no other symptoms. She was treated with a dose of hydralazine and clonidine to help bring down blood pressure. She was stable for discharge home and diagnosed with acute cystitis, back pain and asymptomatic hypertensive urgency. She was sent home with a prescription for a muscle relaxer, Levaquin and hydrocodone for acute pain. Told to follow-up with her PCP within the next week for reevaluation. Return to ED precautions given. Patient understood and agreed with plan. Lab Data I reviewed the patient's lab results. 12/09/22 18:38 12/09/22 18:38 Labs/Radiology: Laboratory Results WBC 8.0 10^3/uL (4.0-10.0) 12/09/22 18: RBC 4.46 10^6/uL (4.1-5.3) 12/09/22 18:38 Hgb 11.6 g/dL (11.5-15.3) 12/09/22 18:38 Hct 37.1 % (37.0-47.0) 12/09/22 18: MCV 83.2 fl (81-99) 12/09/22 18: MCH 26.0 pg (28.0-34.0) L 12/09/22 18: MCHC 31.3 g/dL (30.0-36.0) 12/09/22 18:38 RDW 19.1 % (12.1-15.1) H 12/09/22 18:38 Plt Count 290 10^3/cmm (130-400) 12/09/22 18:38 MPV 10.0 fL (7.4-10.4) 12/09/22 18:38 Neut % (Auto) 72.8 % 12/09/22 18:38 Lymph % (Auto) 19.7 % 12/09/22 18:38 [place] % (Auto) 4.6 % 12/09/22 18:38 Eos % (Auto) 1.8 % 12/09/22 18:38 Baso % (Auto) 0.3 % 12/09/22 18:38 Neut # (Auto) 5.80 10^3/uL (1.8-7.7) 12/09/22 18: Lymph # (Auto) 1.6 10^3/uL (0.8-4.8) 12/09/22 18:38 [place] # (Auto) 0.4 10^3/uL (0.2-0.9) 12/09/22 18:38 Eos # (Auto) 0.1 10^3/uL (0.0-0.8) 12/09/22 18:38 Baso # (Auto) 0.0 10^3/uL (0.0-0.1) 12/09/22 18:38 Nucleated RBC % (auto) 0 % 12/09/22 18:38 Nucleated RBCs # 0.0 /100WBC 12/09/22 18:38 Sodium 140 mmol/L (136-145) 12/09/22 18:38 Potassium 4.5 mmol/L (3.5-5.1) 12/09/22 18:38 Chloride 105 mmol/L (98-107) 12/09/22 18:38 Carbon Dioxide 25 mmol/L (22-29) 12/09/22 18:38 Anion Gap 14.5 (5-19) 12/09/22 18:38 BUN 20 mg/dL (6-20) 12/09/22 18:38 Creatinine 0.6 mg/dL (0.5-0.9) 12/09/22 18:38 GFR Calculation 110.2 mL/min (90-130) 12/09/22 18:38 Glucose 87 mg/dL (65-115) 12/09/22 18:38 Calculated Osmolality 292 mOsm/kg (285-295) 12/09/22 18:38 Calcium 8.2 mg/dL (8.5-10.5) L 12/09/22 18:38 Total Bilirubin 0.2 mg/dL (0.15-1.2) 12/09/22 18:38 AST 11 U/L (0-32) 12/09/22 18:38 ALT 9 U/L (0-33) 12/09/22 18:38 Alkaline Phosphatase 89 U/L (35-105) 12/09/22 18:38 Total Protein 7.1 g/dL (6.6-8.7) 12/09/22 18:38 Albumin 3.8 g/dL (3.5-5.2) 12/09/22 18:38 Globulin 3.3 g/dL (1.3-4.6) 12/09/22 18:38 Lipase 23 U/L (13-60) 12/09/22 18:38 Urine Color Light yellow (Yellow) 12/09/22 23:05 Urine Appearance Clear (CLEAR) 12/09/22 23:05 Urine pH 6.5 (5-7) 12/09/22 23:05 Ur Specific [place] 1.010 (1.005-1.030) 12/09/22 23:05 Urine Protein Neg (Negative) 12/09/22 23:05 Urine Glucose (UA) Norm (Normal) 12/09/22 23:05 Urine Ketones Negative (Negative) 12/09/22 23:05 Urine Blood Neg (Negative) 12/09/22 23:05 Urine Nitrate Negative (Negative) 12/09/22 23:05 Urine Bilirubin Neg (Negative) 12/09/22 23:05 Urine Urobilinogen Norm mg/dL (Negative) 12/09/22 23:05 Ur Leukocyte Esterase Negative (Negative) 12/09/22 23:05 Discharge Plan Discharge Patient Disposition: Home Clinical Impression: Acute cystitis, Back pain, Asymptomatic hypertensive urgency Condition: Stable Prescriptions: New levofloxacin 750 mg tablet 750 mg PO DAILY 5 Days Qty: 5 0RF cyclobenzaprine 10 mg tablet 10 mg PO BID PRN (Reason: muscle spasm) Qty: 20 0RF No Action meloxicam 15 mg tablet 15 mg PO DAILY PRN (Reason: muscle spasm) trazodone 150 mg tablet 150 mg PO BEDTIME Qty: 30 1RF albuterol sulfate 90 mcg/actuation HFA aerosol inhaler 2 puff INHALATION Q6H PRN (Reason: Shortness Of Breath) paroxetine HCl [Paxil] 20 mg tablet 20 mg PO QAM sennosides-docusate sodium [Senna-S] 8.6-50 mg tablet 1 tab-cap PO BID PRN (Reason: constipation) Qty: 20 0RF ferrous sulfate [Feosol] 325 mg (65 mg iron) tablet 325 mg PO DAILY Qty: 60 2RF hydrocodone-acetaminophen 5-325 mg tablet 1 tab PO Q8H PRN (Reason: pain (scale score 7-10)) Qty: 10 0RF Tylenol Ex Str Rapid Release 500 mg Tablet 1,500 mg PO Q4H PRN (Reason: Pain) ketorolac 10 mg tablet 10 mg PO TID PRN (Reason: pain) Qty: 10 0RF hydrocodone-acetaminophen 5-325 mg tablet 1 tab PO Q6H PRN (Reason: pain) Qty: 7 0RF Lasix 20 mg tablet 20 mg PO DAILY Qty: 30 0RF potassium chloride 10 mEq capsule, extended release 10 meq PO DAILY Qty: 30 0RF hydrocodone-acetaminophen 5-325 mg tablet 1 tab PO Q6H PRN (Reason: pain) Qty: 14 0RF Discharge Orders: Discharge ED (Routine); Ordered 12/10/22 Ordered By: Xander Cabezas Discharge Diet: Regular Discharge Activity: Increase activity as tolerated Patient Instructions: Urinary Tract Infection in Women (DC), Back Pain (ED), Opioid Safety Activity Restrictions/Additional Instructions: Follow-up with medical provider as directed in the next 3 to 5 days for reevaluation. Take medications as prescribed. Make sure you drink plenty of f luids and stay hydrated. Return to the ER or your medical provider if condition worsens. Please read and understand discharge instructions. Thank you for choosing [facility] for your healthcare needs today. Please realize this is an emergency room and that we are providing you with a medical screening exam and this may not be complete and all inclusive of all the testing and or work up that you may need to determine your ailment or severity of your illness. It is very important that you follow up as instructed or that you return to the Emergency Department should you have concerns or if your condition changes or worsens in any way. Coding Level of Care Code ED New Accounts Banking Representative for Milagro Lao
[2022-12-09 22:01] VITALS: RESP 18
[2022-12-09] MEDS: ondansetron 2 mg/ML SDV 2 mL 4 MG IVP (22:01)
[2022-12-09] MEDS: morphine 4 mg/mL SDV 1 mL IVP (22:01)
[2022-12-09] MEDS: sodium chloride 0.9% 1,000 ML 999 ML IV (22:10)
[2022-12-09] MEDS: levofloxacin-dextrose 5 % 750 MG/150 ML PREMIX 100 MG IV (22:10)
[2022-12-09 22:13] VITALS: BP 214/148; PULSE 69; RESP 18; O2SAT 96
[2022-12-09] MEDS: hyDRALAzine 25 mg Tablet PO (22:13)
[2022-12-09 23:12] LABS: Add Urine Microscopic? NO; Charge for UA Resulting for Rev
[2022-12-09 23:18] LABS: Bilirubin Urine Neg (Negative); Blood Urine Neg (Negative); Glucose Urine UA Norm (Normal); Ketones Urine Negative (Negative); Leukocyte Esterase Urine Negative (Negative); Nitrate Urine Negative (Negative); Protein Urine Neg (Negative); Urine Appearance Clear (CLEAR); Urine Color Light yellow (Yellow); Urobilinogen Urine Norm (Negative); pH Urine 6.5 (5-7)
[2022-12-09 23:40] VITALS: RESP 18
[2022-12-09] MEDS: HYDROmorphone 1 mg/mL INJ 1 mL IVP (23:40)
[2022-12-09 23:46] VITALS: BP 197/122; PULSE 80; RESP 18; O2SAT 100
[2022-12-10 00:46] VITALS: BP 203/138
[2022-12-10] MEDS: HYDROcodone-acetaminophen 5-325 mg Tablet 1 TAB PO (00:46)
[2022-12-10] MEDS: cloNIDine 0.1 mg Tablet PO (00:46)
[2022-12-10 01:07] VITALS: BP 191/115; PULSE 64; RESP 16; O2SAT 96
--- NOTE | 2022-12-19 09:59 | DCPLANNER ---
TCM called patient due to no primary care physician - patient states that she sees Dr. Ham.
== END 2022-12-10 01:08 | disposition home or self-care (01) ==
PROVIDERS: Emergency Medicine; Emergency Provider Physician Assistant; PCP Family Medicine
DX: N30.00 Acute cystitis without hematuria (principal); M54.9 Dorsalgia, unspecified; I16.0 Hypertensive urgency; F17.210 Nicotine dependence, cigarettes, uncomplicated; I10 Essential (primary) hypertension; E11.9 Type 2 diabetes mellitus without complications
CPT/HCPCS: 36415; 80053; 81003; 83690; 85025; 96365; 96375; 99284; J1170; J1956; J2270; J2405; J7030

== ENCOUNTER 2022-12-17 16:20 | Emergency (ER) | payer MEDICARE, MEDICAID, SELFPAY ==
[2022-12-17 16:49] VITALS: BP 133/85; PULSE 89; RESP 16; TEMP 36.4; O2SAT 99; BMI 41.3
[2022-12-17 23:48] VITALS: BP 158/97; PULSE 75; RESP 18; TEMP 36.4; O2SAT 97
--- NOTE | 2022-12-17 23:58 | W.ED.BACK ---
HPI - Back Pain/Injury General: Chief Complaint: Back Pain/Injury Stated Complaint: FLANK PAIN Time Seen by Provider: 12/17/22 23:51 History of Present Illness: 42-year-old female comes in today with right flank pain radiating to the groin. Patient reports that she has had problems with her back and some cramping in her lower abdomen. Patient appears nontoxic. Vital signs are stable. Patient also reports bilateral knee pain. Patient has a long history of chronic pain syndrome, right hydronephrosis, recurrent renal stones. Associated symptoms: Deny nausea or vomiting Review of Systems General: Reports: 10 or more systems reviewed and unremarkable except in HPI and below Card: Denies: chest pain Resp: Denies: dyspnea GI: Denies: nausea or vomiting : Denies: difficulty voiding Musc: Reports: back pain PFSH ED PFSH: Medical History Abnormal uterine bleeding (AUB) Asthma Benign essential HTN Bilateral primary osteoarthritis of knee DDD (degenerative disc disease) Fatty infiltration of liver Gender dysphoria Hypothyroidism Intervertebral disc disorders with radiculopathy, lumbar region Major depressive disorder, recurrent severe without psychotic features Methamphetamine dependence, episodic Morbid obesity with BMI of 50.0-59.9, adult Nicotine dependence, cigarettes, uncomplicated Opiate abuse, episodic Pyuria Uncontrolled type 2 diabetes mellitus, without long-term current use of insulin Urinary incontinence Surgical History History of endometrial biopsy (04/13/20) benign endocervical epithelium History of ureter stent Hx of foot surgery S/P laparoscopic appendectomy (04/19/20) Family History Mother Diabetes Other Heart disease Social History Smoking and tobacco status: current some day smoker cigarettes Packs smoked per day: 0.5 Years cigarettes smoked: 20 Alcohol intake: current Alcohol intake frequency: holidays/special occasions only Alcohol type: beer and hard liquor Substance/Drug Use: current Substance/Drug use frequency: few times a month Other substance/drug use details: Occasional marijuana Household members: other Details: partner and her mom Current gender identity: Male and Other Gender Identity Comment: Goes by Saul, considering formal transition Physical Exam Const: COMMON NORMALS: alert HENMT: COMMON NORMALS: normocephalic HEAD & SCALP: normocephalic Neck/C-Spine: COMMON NORMALS: full ROM Resp: COMMON NORMALS: normal respiratory effort and clear to auscultation bilaterally AUSCULTATION: clear to auscultation bilaterally Cardio: COMMON NORMALS: regular rate and regular rhythm RATE: regular rate RHYTHM: regular rhythm GI: COMMON NORMALS: Soft to palpation PALPATION: Yes Soft to palpation Extremity: COMMON NORMALS: no pedal edema Neuro: SENSORIUM/ORIENTATION: Yes alert Skin: COMMON NORMALS: turgor normal GENERAL SKIN EXAM: turgor normal Course Vital Signs: Vital signs: Vital Signs Temperature 97.5 F L 12/17/22 23:48 Pulse Rate 80 12/18/22 00:15 Respiratory Rate 18 12/18/22 00:15 Blood Pressure 161/112 12/18/22 00:15 Pulse Oximetry 98 12/18/22 00:15 Oxygen Delivery Me thod Room Air 12/18/22 00:15 MDM - Back Pain/Injury Medical Decision Making 42-year-old female comes in today with complaints of back pain and cramping in the lower abdomen. On exam patient appears nontoxic. Patient appears in mild to moderate pain. Patient has some tenderness in the lower back on palpation. Patient has some lower abdominal tenderness. Bowel sounds are present throughout. Vital signs are normal. Differential diagnosis includes but not limited to urinary tract infection, renal colic, intervertebral disc disease, facet arthropathy, chronic pain syndrome, osteoarthritis. Urinalysis was clean. Patient physically appears well. Patient has a history of long standing chronic pain disorder and I believe she is just having exacerbation of her chronic back pain. Patient does have some hydronephrosis on the right which may be causing some secondary renal colic. There is no sign of infection though. Patient has been having difficulties with transportation to follow-up appointments. Recommend patient follow-up with primary care who give her short course of hydrocodone for her pain and recommend return to the ER for high fever or new concerns. Labs Laboratory Results Urine Color Light yellow (Yellow) 12/18/22 00:25 Urine Appearance Clear (CLEAR) 12/18/22 00:25 Urine pH 5 (5-7) 12/18/22 00:25 Ur Specific [place] 1.020 (1.005-1.030) 12/18/22 00:25 Urine Protein Neg (Negative) 12/18/22 00:25 Urine Glucose (UA) Norm (Normal) 12/18/22 00:25 Urine Ketones Negative (Negative) 12/18/22 00:25 Urine Blood Neg (Negative) 12/18/22 00:25 Urine Nitrate Negative (Negative) 12/18/22 00:25 Urine Bilirubin Neg (Negative) 12/18/22 00:25 Urine Urobilinogen Neg mg/dL (Negative) 12/18/22 00:25 Ur Leukocyte Esterase Negative (Negative) 12/18/22 00:25 Discharge Plan Discharge Patient Disposition: Home Clinical Impression: Lumbar pain Condition: Stable Prescriptions: Continued hydrocodone-acetaminophen 5-325 mg tablet 1 tab PO Q8H PRN (Reason: pain (scale score 7-10)) Qty: 10 0RF No Action meloxicam 15 mg tablet 15 mg PO DAILY PRN (Reason: muscle spasm) trazodone 150 mg tablet 150 mg PO BEDTIME Qty: 30 1RF albuterol sulfate 90 mcg/actuation HFA aerosol inhaler 2 puff INHALATION Q6H PRN (Reason: Shortness Of Breath) paroxetine HCl [Paxil] 20 mg tablet 20 mg PO QAM sennosides-docusate sodium [Senna-S] 8.6-50 mg tablet 1 tab-cap PO BID PRN (Reason: constipation) Qty: 20 0RF ferrous sulfate [Feosol] 325 mg (65 mg iron) tablet 325 mg PO DAILY Qty: 60 2RF Tylenol Ex Str Rapid Release 500 mg Tablet 1,500 mg PO Q4H PRN (Reason: Pain) ketorolac 10 mg tablet 10 mg PO TID PRN (Reason: pain) Qty: 10 0RF hydrocodone-acetaminophen 5-325 mg tablet 1 tab PO Q6H PRN (Reason: pain) Qty: 7 0RF Lasix 20 mg tablet 20 mg PO DAILY Qty: 30 0RF potassium chloride 10 mEq capsule, extended release 10 meq PO DAILY Qty: 30 0RF hydrocodone-acetaminophen 5-325 mg tablet 1 tab PO Q6H PRN (Reason: pain) Qty: 14 0RF cyclobenzaprine 10 mg tablet 10 mg PO BID PRN (Reason: muscle spasm) Qty: 20 0RF Discharge Orders: Discharge ED (Routine); Ordered 12/18/22 Ordered By: Sukhi Vigil Discharge Diet: Usual diet Discharge Activity: Increase activity as tolerated Patient Instructions: Opioid Safety, Pain Management Activity Restrictions/Additional Instructions: Follow-up with primary care in order to get referral to pain management. Continue with routine medications as directed. Return to ED for new concerns. Coding Level of Care Code ED Rubber Gasket Inspector Trimmer for Milagro Lao
[2022-12-18] MEDS: HYDROcodone-acetaminophen 10-325 mg Tablet 1 TAB PO (00:13)
[2022-12-18 00:15] VITALS: BP 161/112; PULSE 80; RESP 18; O2SAT 98
[2022-12-18 00:35] LABS: Add Urine Microscopic? NO; Charge for UA Resulting for Rev
[2022-12-18 00:39] LABS: Urine Color Light yellow (Yellow)
[2022-12-18 00:40] LABS: Bilirubin Urine Neg (Negative); Blood Urine Neg (Negative); Glucose Urine UA Norm (Normal); Ketones Urine Negative (Negative); Leukocyte Esterase Urine Negative (Negative); Nitrate Urine Negative (Negative); Protein Urine Neg (Negative); Urine Appearance Clear (CLEAR); Urobilinogen Urine Neg (Negative); pH Urine 5 (5-7)
[2022-12-18] MEDS: HYDROcodone-acetaminophen 5-325 mg Tablet 2 TAB PO (01:04)
--- NOTE | 2022-12-18 01:05 | PC.NURSE ---
2 Hydrocodone 5/325 mg administered for home use
[2022-12-18 01:08] VITALS: BP 140/91; PULSE 82; RESP 18; O2SAT 97
--- NOTE | 2022-12-18 08:50 | DCPLANNER ---
print shop manager had message to speak with patient about getting established with a primary care physician - no answer at this time.
== END 2022-12-18 01:10 | disposition home or self-care (01) ==
PROVIDERS: Emergency Provider Nurse Practitioner Family
DX: M54.50 Low back pain, unspecified (principal); F17.210 Nicotine dependence, cigarettes, uncomplicated; I10 Essential (primary) hypertension; E11.9 Type 2 diabetes mellitus without complications
CPT/HCPCS: 81003; 99283

== ENCOUNTER 2022-12-31 12:46 | Emergency (ER) | payer MEDICARE, MEDICAID, SELFPAY ==
[2022-12-31 13:01] VITALS: BP 157/97; PULSE 82; RESP 16; TEMP 36.4; O2SAT 99; BMI 41.8
[2022-12-31 15:44] VITALS: BP 160/95; PULSE 76; RESP 16; TEMP 36.5; O2SAT 98
[2022-12-31 16:35] LABS: Add Urine Microscopic? NO; Charge for UA Resulting for Rev
--- NOTE | 2022-12-31 16:39 | ED_ITS ---
HPI - Back Pain/Injury General: Chief Complaint: Back Pain/Injury Stated Complaint: Back Pain Time Seen by Provider: 12/31/22 13:07 History of Present Illness: Patient is a 42-year-old female comes to the ED via EMS with low back pain. She had back pain approximately a month ago and it was due to a UTI. She states that 2 days ago she started having worsening back pain. Back pain is rated 9 out of 10 and is located in the lower back. Denies any recent trauma to cause back pain. Pain radiates down into both legs bilaterally. Denies any cauda equina symptoms. Denies any UTI symptoms. Associated symptoms: Deny abdominal pain, chills, dysuria, fatigue, fever(s), hematuria, nausea or vomiting Review of Systems Const: Denies: fever(s), chills or fatigue Eyes: Denies: change in vision or eye discomfort ENMT: Denies: throat pain, odynophagia, nasal discharge or nasal congestion Card: Denies: chest pain, palpitations, edema, swelling of feet/ankles, dyspnea on exertion or orthopnea Resp: Denies: dyspnea, productive cough or non-productive cough GI: Denies: abdominal pain, nausea, vomiting, diarrhea, constipation or hematochezia : Denies: flank pain, dysuria or hematuria Musc: Reports: back pain; Denies: neck pain or extremity swelling Skin/Breast: Denies: rash or new lesions Neuro: Denies: headache(s), numbness in extremities or weakness in extremities PFSH ED PFSH: Medical History Abnormal uterine bleeding (AUB) Asthma Benign essential HTN Bilateral primary osteoarthritis of knee DDD (degenerative disc disease) Fatty infiltration of liver Gender dysphoria Hypothyroidism Intervertebral disc disorders with radiculopathy, lumbar region Major depressive disorder, recurrent severe without psychotic features Methamphetamine dependence, episodic Morbid obesity with BMI of 50.0-59.9, adult Nicotine dependence, cigarettes, uncomplicated Opiate abuse, episodic Pyuria Uncontrolled type 2 diabetes mellitus, without long-term current use of insulin Urinary incontinence Surgical History History of endometrial biopsy (04/13/20) benign endocervical epithelium History of ureter stent Hx of foot surgery S/P laparoscopic appendectomy (04/19/20) Family History Mother Diabetes Other Heart disease Social History Smoking and tobacco status: current some day smoker cigarettes Packs smoked per day: 0.5 Years cigarettes smoked: 20 Alcohol intake: current Alcohol intake frequency: holidays/special occasions only Alcohol type: beer and hard liquor Substance/Drug Use: current Substance/Drug use frequency: few times a month Other substance/drug use details: Occasional marijuana Household members: other Details: partner and her mom Current gender identity: Male and Other Gender Identity Comment: Goes by Saul, considering formal transition Physical Exam Const: COMMON NORMALS: patient oriented x3 HENMT: COMMON NORMALS: normocephalic HEAD & SCALP: normocephalic MOUTH: Normal oral and palatal mucosa present THROAT: posterior oropharynx normal and uvula midline Neck/C-Spine: COMMON NORMALS: supple GENERAL: Yes normal visual inspection Resp: COMMON NORMALS: normal respiratory effort, No retractions, No use of accessory muscles and clear to auscultation bilaterally AUSCULTATION: clear to auscultation bilaterally Cardio: COMMON NORMALS: regular rate, regular rhythm, S1 normal heart sound present, S2 normal heart sound present, No gallops present (Cardio), No clicks present (Cardio), No murmurs present (Cardio) and Peripheral pulses 2+ throughout RATE: regular rate RHYTHM: regular rhythm HEART SOUNDS: S1 normal heart sound present and S2 normal heart sound present PERIPHERAL PULSES: Peripheral pulses 2+ throughout GI: COMMON NORMALS: Normal to inspection, nondistended, normoactive bowel sounds present, Soft to palpation, non-tender and no masses PALPATION: Yes Soft to palpation : COMMON NORMALS: Yes no CVA tenderness BLADDER/KIDNEY EXAM: Yes no CVA tenderness Back/Pelvis: COMMON NORMALS: no CVA tenderness LUMBAR SPINE/LOWER BACK: Yes pain with ROM, No lumbar spinal tenderness and Yes paraspinal muscle tenderness Lumbar paraspinal muscle tenderness: bilateral Extremity: COMMON NORMALS: normal to inspection Neuro: COMMON NORMALS: patient oriented x3 GAIT: Yes Normal gait present Skin: GENERAL SKIN EXAM: dry skin Course Vital Signs: Vital signs: Vital Signs Temperature 97.7 F 12/31/22 15:44 Pulse Rate 74 12/31/22 17:26 Respiratory Rate 20 H 12/31/22 17:26 Blood Pressure 159/101 12/31/22 17:23 Pulse Oximetry 99 12/31/22 17:26 Oxygen Delivery Me thod Room Air 12/31/22 15:44 MDM - Back Pain/Injury Medical Decision Making Patient is a 42-year-old female comes to the ED via EMS with low back pain. She had back pain approximately a month ago and it was due to a UTI. She states that 2 days ago she started having worsening back pain. Back pain is rated 9 out of 10 and is located in the lower back. Denies any recent trauma to cause back pain. Pain radiates down into both legs bilaterally. Denies any cauda equina symptoms. Denies any UTI symptoms. Vitals are stable. Patient is sitting comfortably on exam chair and appears nontoxic in no acute distress or pain. She has some paraspinal muscle tenderness of the lumbar spine but rest of exam is benign. UA was unremarkable. Patient was diagnosed with low back pain with radiating pain down to her legs. She was given dose of pain med, muscle relaxer and steroid here in the ED. She was stable for discharge home and sent home with a prescription for an NSAID, muscle relaxer and Medrol Dosepak. Return to ED precautions given. Follow-up with PCP in the next week for reevaluation. Patient understood and agreed with plan. Labs I reviewed the patient's lab results. Laboratory Results Urine Color Light yellow (Yellow) 12/31/22 16:29 Urine Appearance Clear (CLEAR) 12/31/22 16:29 Urine pH 6 (5-7) 12/31/22 16:29 Ur Specific [place] 1.015 (1.005-1.030) 12/31/22 16:29 Urine Protein Neg (Negative) 12/31/22 16:29 Urine Glucose (UA) Norm (Normal) 12/31/22 16:29 Urine Ketones Negative (Negative) 12/31/22 16:29 Urine Blood Neg (Negative) 12/31/22 16:29 Urine Nitrate Negative (Negative) 12/31/22 16:29 Urine Bilirubin Neg (Negative) 12/31/22 16:29 Urine Urobilinogen Norm mg/dL (Negative) 12/31/22 16:29 Ur Leukocyte Esterase Negative (Negative) 12/31/22 16:29 Discharge Plan Discharge Patient Disposition: Home Clinical Impression: Low back pain radiating to both legs Condition: Stable Prescriptions: New tizanidine 4 mg capsule 4 mg PO Q8H PRN (Reason: muscle spasticity) Qty: 20 0RF methylprednisolone 4 mg tablets,dose pack See Rx Instructions .ROUTE .COMPLEX Qty: 21 0RF Rx Instructions: orally per package directions meloxicam 15 mg tablet 15 mg PO DAILY PRN (Reason: pain) Qty: 20 0RF No Action meloxicam 15 mg tablet 15 mg PO DAILY PRN (Reason: muscle spasm) trazodone 150 mg tablet 150 mg PO BEDTIME Qty: 30 1RF albuterol sulfate 90 mcg/actuation HFA aerosol inhaler 2 puff INHALATION Q6H PRN (Reason: Shortness Of Breath) paroxetine HCl [Paxil] 20 mg tablet 20 mg PO QAM sennosides-docusate sodium [Senna-S] 8.6-50 mg tablet 1 tab-cap PO BID PRN (Reason: constipation) Qty: 20 0RF ferrous sulfate [Feosol] 325 mg (65 mg iron) tablet 325 mg PO DAILY Qty: 60 2RF Tylenol Ex Str Rapid Release 500 mg Tablet 1,500 mg PO Q4H PRN (Reason: Pain) ketorolac 10 mg tablet 10 mg PO TID PRN (Reason: pain) Qty: 10 0RF hydrocodone-acetaminophen 5-325 mg tablet 1 tab PO Q6H PRN (Reason: pain) Qty: 7 0RF Lasix 20 mg tablet 20 mg PO DAILY Qty: 30 0RF potassium chloride 10 mEq capsule, extended release 10 meq PO DAILY Qty: 30 0RF hydrocodone-acetaminophen 5-325 mg tablet 1 tab PO Q6H PRN (Reason: pain) Qty: 14 0RF cyclobenzaprine 10 mg tablet 10 mg PO BID PRN (Reason: muscle spasm) Qty: 20 0RF hydrocodone-acetaminophen 5-325 mg tablet 1 tab PO Q8H PRN (Reason: pain (scale score 7-10)) Qty: 10 0RF Discharge Orders: Discharge ED (Routine); Ordered 12/31/22 Ordered By: Xander Cabezas Discharge Diet: Regular Discharge Activity: Increase activity as tolerated Patient Instructions: Acute Low Back Pain (ED), Lumbar Radiculopathy (ED) Activity Restrictions/Additional Instructions: Follow-up with medical provider as directed. Take medications as prescribed. Return to the ER or your medical provider if condition worsens. Please read and understand discharge instructions. Thank you for choosing [facility] for your healthcare needs today. Please realize this is an emergency room and that we are providing you with a medical screening exam and this may not be complete and all inclusive of all the testing and or work up that you may need to determine your ailment or severity of your illness. It is very important that you follow up as instructed or that you return to the Emergency Department should you have concerns or if your condition changes or worsens in any way. Coding Level of Care Code ED Gem Carver for Milagro Lao
[2022-12-31] MEDS: cyclobenzaprine 10 mg Tablet PO (16:42)
[2022-12-31 16:43] VITALS: RESP 20; O2SAT 96
[2022-12-31] MEDS: dexamethasone 10 mg/mL INJ IM (16:43)
[2022-12-31] MEDS: morphine 4 mg/mL SDV 1 mL IM (16:43)
[2022-12-31 16:46] LABS: Bilirubin Urine Neg (Negative); Blood Urine Neg (Negative); Glucose Urine UA Norm (Normal); Ketones Urine Negative (Negative); Leukocyte Esterase Urine Negative (Negative); Nitrate Urine Negative (Negative); Protein Urine Neg (Negative); Specific Gravity, Urine 1.015 (1.005-1.030); Urine Appearance Clear (CLEAR); Urine Color Light yellow (Yellow); Urobilinogen Urine Norm (Negative); pH Urine 6 (5-7)
[2022-12-31] MEDS: ketorolac 60 mg/2 mL INJ IM (16:55)
[2022-12-31 17:23] VITALS: BP 159/101; PULSE 74; RESP 20; O2SAT 99
[2022-12-31 17:26] VITALS: PULSE 74; RESP 20; O2SAT 99
--- NOTE | 2023-01-03 12:35 | DCPLANNER ---
sponsorship manager was triggered to call patient due to no primary care physician - patient sees Dr. sánchez.
== END 2022-12-31 17:27 | disposition home or self-care (01) ==
PROVIDERS: Emergency Provider Physician Assistant
DX: M54.50 Low back pain, unspecified (principal); F17.210 Nicotine dependence, cigarettes, uncomplicated; I10 Essential (primary) hypertension; E11.9 Type 2 diabetes mellitus without complications
CPT/HCPCS: 36415; 81003; 96372; 99284; J1100; J1885; J2270

== ENCOUNTER 2023-01-14 15:19 | Emergency (ER) | payer MEDICARE, MEDICAID, SELFPAY ==
[2023-01-14 16:21] VITALS: BP 165/98; PULSE 79; RESP 18; TEMP 36.4; O2SAT 96; BMI 41.8
--- NOTE | 2023-01-14 17:13 | ED_ITS ---
HPI - Back Pain/Injury General: Chief Complaint: Back Pain/Injury Stated Complaint: back pain Time Seen by Provider: 01/14/23 17:07 History of Present Illness: 42-year-old female comes in today with complaints of back pain and lower abdominal pain. Patient also reports significant knee discomfort. Patient is scheduled to follow-up with orthopedist for her chronic knee pain. Patient appears nontoxic. Patient is concerned she might be developing a urinary tract infection. Patient reports using acetaminophen and ibuprofen for her chronic pain. Patient denies any other medication use at this time. Associated symptoms: Reports chills; Deny nausea Review of Systems General: Reports: 10 or more systems reviewed and unremarkable except in HPI and below Const: Reports: chills Card: Denies: chest pain Resp: Denies: dyspnea GI: Denies: nausea, diarrhea or constipation : Reports: difficulty voiding Musc: Reports: back pain PFS ED PFSH: Medical History (Updated 01/14/23 @ 18:33 by SUSAN Chou) Abnormal uterine bleeding (AUB) Asthma Benign essential HTN Bilateral primary osteoarthritis of knee DDD (degenerative disc disease) Fatty infiltration of liver Gender dysphoria Hypothyroidism Intervertebral disc disorders with radiculopathy, lumbar region Major depressive disorder, recurrent severe without psychotic features Methamphetamine dependence, episodic Morbid obesity with BMI of 50.0-59.9, adult Nicotine dependence, cigarettes, uncomplicated Opiate abuse, episodic Pyuria Uncontrolled type 2 diabetes mellitus, without long-term current use of insulin Urinary incontinence Surgical History (Updated 01/02/23 @ 11:12 by Jayda Avilez LPN) History of endometrial biopsy (04/13/20) benign endocervical epithelium History of ureter stent Hx of foot surgery S/P laparoscopic appendectomy (04/19/20) Family History (Updated 01/02/23 @ 11:14 by Jayda Avilez LPN) Mother Diabetes Sister Cancer ovarian Other Dementia Heart disease Hypertension Psychiatric illness Denies family history of CAD (coronary artery disease) Clotting disorder Hyperlipidemia Chronic kidney disease (CKD) Anesthesia complication Bleeding disorder Lung disease Stroke Social History (Updated 01/02/23 @ 11:15 by Jayda Avilez LPN) Smoking and tobacco status: current every day smoker cigarettes Packs smoked per day: 0.5 Alcohol intake: current Alcohol intake frequency: few times a month Alcohol type: beer and hard liquor Substance/Drug Use: current Substance/Drug use frequency: few times a month Other substance/drug use details: Occasional marijuana Lives independently: Yes Household members: other Details: partner and her mom Marital status: Single Number of children: 0 Current occupational status: disabled Current gender identity: Male and Other Gender Identity Comment: Goes by Saul, considering formal transition Special hero needs: No Agree to transfusion: Yes Physical Exam Const: COMMON NORMALS: alert HENMT: COMMON NORMALS: normocephalic HEAD & SCALP: normocephalic THROAT: posterior oropharynx normal Neck/C-Spine: COMMON NORMALS: full ROM Resp: COMMON NORMALS: normal respiratory effort and clear to auscultation bila terally AUSCULTATION: clear to auscultation bilaterally Cardio: COMMON NORMALS: regular rate RATE: regular rate : BLADDER/KIDNEY EXAM: Yes CVA tenderness bilateral Back/Pelvis: GENERAL BACK: Yes CVA tenderness THORACIC SPINE/UPPER BACK: Yes paraspinal muscle tenderness LUMBAR SPINE/LOWER BACK: Yes paraspinal muscle tenderness Extremity: COMMON NORMALS: no pedal edema Neuro: SENSORIUM/ORIENTATION: Yes alert Skin: COMMON NORMALS: turgor normal GENERAL SKIN EXAM: turgor normal Course Vital Signs: Vital signs: Vital Signs Temperature 97.5 F L 01/14/23 16:21 Pulse Rate 79 01/14/23 16:21 Respiratory Rate 18 01/14/23 16:21 Blood Pressure 165/98 01/14/23 16:21 Pulse Oximetry 96 01/14/23 16:21 Oxygen Delivery Me thod Room Air 01/14/23 16:21 MDM - Back Pain/Injury Medical Decision Making 42-year-old female comes in today with complaints of dysuria and lower abdominal pain along with chronic knee and back pain. Patient is she concerned with possible urinary tract infection. On exam patient has some muscle tenderness in the back and lumbar spine. Abdomen soft with some suprapubic tenderness. Skin is warm and dry. Vital signs are normal except for elevated blood pressure. Differential diagnosis includes but not limited to urinary tract infection, malingering, intervertebral disc disease, facet arthropathy, osteoarthritis. Urinalysis showed some white blood cells and leukocyte Estrase. Recommend treatment with antibiotics sulfamethizole?trimethoprim. Patient was written for 6 tablets of hydrocodone for her severe pain. She could continue with acetaminophen and ibuprofen for mild to moderate pain. Recommend follow-up with primary care for further instruction. Labs Laboratory Results Urine Color Yellow (Yellow) 01/14/23 17:47 Urine Appearance Cloudy (CLEAR) A 01/14/23 17:47 Urine pH 5 (5-7) 01/14/23 17:47 Ur Specific [place] 1.030 (1.005-1.030) 01/14/23 17:47 Urine Protein Neg (Negative) 01/14/23 17:47 Urine Glucose (UA) Norm (Normal) 01/14/23 17:47 Urine Ketones Negative (Negative) 01/14/23 17:47 Urine Blood Neg (Negative) 01/14/23 17:47 Urine Nitrate Negative (Negative) 01/14/23 17:47 Urine Bilirubin Neg (Negative) 01/14/23 17:47 Urine Urobilinogen Norm mg/dL (Negative) 01/14/23 17:47 Ur Leukocyte Esterase 2+ (Negative) H 01/14/23 17:47 Urine RBC 0-4 /hpf (0-2) H 01/14/23 17:47 Urine WBC 25-40 /hpf (0-5) H 01/14/23 17:47 Ur Squamous Epith Cells 5-10 /hpf (0-5) H 01/14/23 17:47 Amorphous Sediment Not Reportable 01/14/23 17:47 Urine Bacteria 4+ /hpf (NONE) H 01/14/23 17:47 Discharge Plan Discharge Patient Disposition: Home Clinical Impression: UTI (urinary tract infection) due to Enterococcus Back pain Qualifiers: Back pain location: low back pain Chronicity: unspecified Back pain laterality: unspecified Sciatica presence: without sciatica Qualified Code(s): M54.50 - Low back pain, unspecified Knee osteoarthritis Qualifiers: Osteoarthritis type: unspecified Laterality: unspecified laterality Qualified Code(s): M17.9 - Osteoarthritis of knee, unspecified Condition: Stable Prescriptions: New hydrocodone-acetaminophen 5-325 mg tablet 1 tab PO BID PRN (Reason: pain (scale score 7-10)) Qty: 6 0RF sulfamethoxazole-trimethoprim 800-160 mg tablet 1 tab PO DAILY 7 Days Qty: 13 0RF No Action trazodone 150 mg tablet 150 mg PO BEDTIME Qty: 30 1RF montelukast [Singulair] 10 mg tablet 10 mg PO DAILY citalopram [Celexa] 40 mg tablet 40 mg PO DAILY Qty: 90 1RF citalopram [Celexa] 20 mg tablet 20 mg PO DAILY Qty: 90 1RF lorazepam 2 mg tablet 2 mg PO DAILY Qty: 30 0RF gabapentin 600 mg tablet 1,200 mg PO TID 30 Days Qty: 180 0RF albuterol sulfate 90 mcg/actuation HFA aerosol inhaler 2 puff INHALATION Q6H PRN (Reason: Shortness Of Breath) ferrous sulfate [Feosol] 325 mg (65 mg iron) tablet 325 mg PO DAILY Qty: 60 2RF methylprednisolone 4 mg tablets,dose pack See Rx Instructions .ROUTE .COMPLEX Qty: 21 0RF Rx Instructions: orally per package directions meloxicam 15 mg tablet 15 mg PO DAILY PRN (Reason: pain) Qty: 90 0RF Tylenol Ex Str Rapid Release 500 mg Tablet 1,500 mg PO Q4H PRN (Reason: Pain) cyclobenzaprine 10 mg tablet 10 mg PO BID PRN (Reason: muscle spasm) Qty: 20 0RF Discharge Orders: Discharge ED (Routine); Ordered 01/14/23 Ordered By: Sukhi Vigil Referrals: Willard Ham MD [Primary Care Provider] - Discharge Diet: Usual diet Discharge Activity: Increase activity as tolerated Patient Instructions: Urinary Tract Infection in Women (ED), Opioid Safety, Pain Management Activity Restrictions/Additional Instructions: Drink plenty of water and fluids. Take antibiotic as directed. Follow-up with primary care in 1 week for recheck of urine. Return to ER for new concerns. Coding Level of Care Code ED House Moving Supervisor for Milagro Lao
[2023-01-14] MEDS: HYDROcodone-acetaminophen 7.5-325 mg Tablet 1 TAB PO (18:06)
[2023-01-14 18:19] LABS: Add Urine Culture? Yes; Add Urine Microscopic? YES; Bacteria Urine 4+ /hpf; Bilirubin Urine Neg (Negative); Blood Urine Neg (Negative); Glucose Urine UA Norm (Normal); Ketones Urine Negative (Negative); Leukocyte Esterase Urine 2+ (Negative); Nitrate Urine Negative (Negative); Protein Urine Neg (Negative); RBC Urine 0-4 /hpf (0-2); Urine Appearance Cloudy (CLEAR); Urine Color Yellow (Yellow); Urobilinogen Urine Norm (Negative); WBC Urine 25-40 /hpf (0-5); pH Urine 5 (5-7)
[2023-01-14] MEDS: HYDROcodone-acetaminophen 5-325 mg Tablet 1 TAB PO (18:39)
[2023-01-14] MEDS: sulfamethoxazole-trimeth DS 160-800 mg Tablet 1 TAB PO (18:39)
--- NOTE | 2023-01-15 08:22 | PC.SOCIAL ---
Addendum entered by Karla Marie 01/29/23 11:00: actuary manager received the following message from the ortho clinic regarding follow up appointment: Attempted to contact patient - I was unable to get ahold of her, but I left a v/m and I will be mailing a letter so she knows to contact our office to schedule with Dr. Raya! Original Note: Ortho Referral Referral sent to ortho at this time. Clinic to contact patient with appt date/time.
== END 2023-01-14 18:49 | disposition home or self-care (01) ==
PROVIDERS: Emergency Provider Nurse Practitioner Family; PCP Family Medicine
DX: N39.0 Urinary tract infection, site not specified (principal); B95.2 Enterococcus as the cause of diseases classified elsewhere; M54.50 Low back pain, unspecified; M17.9 Osteoarthritis of knee, unspecified; F17.210 Nicotine dependence, cigarettes, uncomplicated; I10 Essential (primary) hypertension; E11.9 Type 2 diabetes mellitus without complications
CPT/HCPCS: 81001; 87086; 99283

== ENCOUNTER 2023-01-25 08:10 | Inpatient (IN) | payer MEDICARE, MEDICAID, SELFPAY ==
[2023-01-25] VITALS (7 sets, daily range): BP systolic 110–151; BP diastolic 53–101; PULSE 78–94; RESP 16–18; TEMP 36.3–36.7; O2SAT 95–100; BMI 41.8
--- NOTE | 2023-01-25 09:00 | XRR_ITS ---
PROCEDURE INFORMATION: Exam: XR Left Knee Exam date and time: 01/25/2023 9:38 AM Age: 42 years old Clinical indication: Pain; Knee; Left; Additional info: Left knee pain TECHNIQUE: Imaging protocol: Radiologic exam of the left knee. Views: 3 views. COMPARISON: CR (LOW EXM, ) 10/27/2022 9:03 PM FINDINGS: Bones/joints: No acute fracture or dislocation. Moderate tricompartmental nonuniform joint space narrowing, marginal osteophyte formation, and subchondral sclerosis greatest at the lateral compartment. Minimal joint effusion. Soft tissues: Normal. XR/XR knee LT 3V* [id number] IMPRESSION: 1. Minimal joint effusion without acute fracture. 2. Moderate tricompartmental osteoarthritis.
--- NOTE | 2023-01-25 10:05 | ED_ITS ---
Documented by User: JONO Gómez 01/25/23 14:24 HPI - Extremity Problem General: Chief complaint: Extremity Injury, Lower Stated complaint: Knee pains Time Seen by Provider: 01/25/23 09:00 History of Present Illness: Patient is a 42-year-old female who comes to the ED with left knee pain. Patient states she injured her left knee yesterday. Patient had a warrant out for her arrest and the police apprehended her and when they tried to put her head down to get into the back of the police car she states that she twisted her left knee. She now has pain in her left knee that she rates an 8 out of 10 pain is located on the lateral aspect of the knee. Weightbearing causes worsening pain. Patient states she has had knee problems before and they have told her in the past she is going to need to have her knee replaced. Patient states she is currently homeless and does not have a cell phone. She had an appointment with the orthopedic clinic within past week for left knee pain, but she missed the appointment because she was not sure what time it was that. Associated symptoms: Deny chest pain, fever(s) or rash Review of Systems Const: Denies: fever(s), chills or fatigue Eyes: Denies: change in vision or eye discomfort ENMT: Denies: throat pain, odynophagia, nasal discharge or nasal congestion Card: Denies: chest pain, palpitations, edema, swelling of feet/ankles, dyspnea on exertion or orthopnea Resp: Denies: dyspnea, productive cough or non-productive cough GI: Denies: abdominal pain, nausea, vomiting, diarrhea, constipation or hematochezia : Denies: flank pain, dysuria or hematuria Musc: Reports: extremity pain (Left knee pain); Denies: neck pain, back pain or extremity swelling Skin/Breast: Denies: rash or new lesions Neuro: Denies: headache(s), numbness in extremities or weakness in extremities PFSH ED PFSH: Medical History (Updated 01/25/23 @ 11:12 by JONO Gómez) Abnormal uterine bleeding (AUB) Asthma Benign essential HTN Bilateral primary osteoarthritis of knee DDD (degenerative disc disease) Fatty infiltration of liver Gender dysphoria Hypothyroidism Intervertebral disc disorders with radiculopathy, lumbar region Major depressive disorder, recurrent severe without psychotic features Methamphetamine dependence, episodic Morbid obesity with BMI of 50.0-59.9, adult Nicotine dependence, cigarettes, uncomplicated Opiate abuse, episodic Pyuria Uncontrolled type 2 diabetes mellitus, without long-term current use of insulin Urinary incontinence Surgical History (Updated 01/02/23 @ 11:12 by Jayda Avilez LPN) History of endometrial biopsy (04/13/20) benign endocervical epithelium History of ureter stent Hx of foot surgery S/P laparoscopic appendectomy (04/19/20) Family History (Updated 01/02/23 @ 11:14 by Jayda Avilez LPN) Mother Diabetes Sister Cancer ovarian Other Dementia Heart disease Hypertension Psychiatric illness Denies family history of CAD (coronary artery disease) Clotting disorder Hyperlipidemia Chronic kidney disease (CKD) Anesthesia complication Bleeding disorder Lung disease Stroke Social History (Updated 01/02/23 @ 11:15 by Jayda Avilez LPN) Smoking and tobacco status: current every day smoker cigarettes Packs smoked per day: 0.5 Alcohol intake: current Alcohol intake frequency: few times a month Alcohol type: beer and hard liquor Substance/Drug Use: current Substance/Drug use frequency: few times a month Other substance/drug use details: Occasional marijuana Lives independently: Yes Household members: other Details: partner and her mom Marital status: Single Number of children: 0 Current occupational status: disabled Current gender identity: Male and Other Gender Identity Comment: Goes by Saul, considering formal transition Special hero needs: No Agree to transfusion: Yes Physical Exam Const: COMMON NORMALS: patient oriented x3 and alert HENMT: COMMON NORMALS: normocephalic HEAD & SCALP: normocephalic MOUTH: Normal oral and palatal mucosa present THROAT: posterior oropharynx normal and uvula midline Neck/C-Spine: COMMON NORMALS: supple GENERAL: Yes normal visual inspection Resp: COMMON NORMALS: normal respiratory effort, No retractions, No use of accessory muscles and clear to auscultation bilaterally AUSCULTATION: clear to auscultation bilaterally Cardio: COMMON NORMALS: regular rate, regular rhythm, S1 normal heart sound present, S2 normal heart sound present, No gallops present (Cardio), No clicks present (Cardio), No murmurs present (Cardio) and Peripheral pulses 2+ throughou t RATE: regular rate RHYTHM: regular rhythm HEART SOUNDS: S1 normal heart sound present and S2 normal heart sound present PERIPHERAL PULSES: Peripheral pulses 2+ throughout GI: COMMON NORMALS: Normal to inspection, nondistended, normoactive bowel sounds present, Soft to palpation, non-tender and no masses PALPATION: Yes Soft to palpation : COMMON NORMALS: Yes no CVA tenderness BLADDER/KIDNEY EXAM: Yes no CVA tenderness Back/Pelvis: COMMON NORMALS: no CVA tenderness Extremity: COMMON NORMALS: normal to inspection Neuro: COMMON NORMALS: patient oriented x3 SENSORIUM/ORIENTATION: Yes alert GAIT: Yes Normal gait present Skin: GENERAL SKIN EXAM: dry skin Course Reevaluation(s): Reevaluation #1: I spoke with patient about the knee x-ray results and told her I would give her the orthopedic clinic's phone number so she can call up there to try to reschedule her previous appointment to evaluate her knee pain. Patient was okay with plan at that time. The nurse went in to go through discharge patient and she began getting emotional and crying and saying she wants to kill herself and that she does not want to live her life anymore. I went in and spoke with patient and she stated that she has nowhere to go and she was just kicked out of the place she was living and a restraining order was put arm. She is very emotional and crying and saying that she has been thinking of suicide for a while. She kept making statements that she does not want to live her life anymore. I told her I will contact the psychiatrist production cost estimator and see about admitting her to the [facility]. Time: 11:00 Vital Signs: Vital signs: Vital Signs Temperature 98.1 F 01/25/23 13:40 Pulse Rate 80 01/25/23 14:58 Respiratory Rate 18 01/25/23 14:58 Blood Pressure 151/101 01/25/23 14:58 Pulse Oximetry 95 01/25/23 14:58 Oxygen Delivery Me thod Room Air 01/25/23 13:40 MDM - Extremity (Nontraumatic) Medical Decision Making Patient is a 42-year-old female comes to the ED with left knee pain. Patient says this knee pain has been going on for a while but she reinjured it yesterday. Patient states that she missed an appointment with orthopedic clinic for evaluation of her knee pain. I spoke with patient about the knee x-ray results and told her I would give her the orthopedic clinic's phone number so she can call up there to try to reschedule her previous appointment to evaluate her knee pain. Patient was okay with plan at that time. The nurse went in to go through discharge patient and she began getting emotional and crying and saying she wants to kill herself and that she does not want to live her life anymore. I went in and spoke with patient and she stated that she has nowhere to go and she was just kicked out of the place she was living and a restraining order was put arm. She is very emotional and crying and saying that she has been thinking of suicide for a while. She kept making statements that she does not want to live her life anymore. I told her I will contact the psychiatrist production cost estimator and see about admitting her to the NPU. I contacted Dr. Eller and told him about patient case and he agreed to have patient admitted to the [facility] for further evaluation. Lab Data I reviewed the patient's lab results. 01/25/23 12:16 01/25/23 12:16 Radiology Impressions Knee X-Ray 01/25/23 09:00 IMPRESSION: 1. Minimal joint effusion without acute fracture. 2. Moderate tricompartmental osteoarthritis. Laboratory Results WBC 9.1 10^3/uL (4.0-10.0) 01/25/23 12:16 RBC 5.20 10^6/uL (4.1-5.3) 01/25/23 12:16 Hgb 13.8 g/dL (11.5-15.3) 01/25/23 12:16 Hct 44.3 % (37.0-47.0) 01/25/23 12:16 MCV 85.2 fl (81-99) 01/25/23 12:16 MCH 26.5 pg (28.0-34.0) L 01/25/23 12:16 MCHC 31.2 g/dL (30.0-36.0) 01/25/23 12:16 RDW 16.5 % (12.1-15.1) H 01/25/23 12:16 Plt Count 360 10^3/cmm (130-400) 01/25/23 12:16 MPV 10.0 fL (7.4-10.4) 01/25/23 12:16 Neut % (Auto) 79.5 % 01/25/23 12:16 Lymph % (Auto) 15.0 % 01/25/23 12:16 Kenton % (Auto) 3.8 % 01/25/23 12:16 Eos % (Auto) 1.2 % 01/25/23 12:16 Baso % (Auto) 0.2 % 01/25/23 12:16 Neut # (Auto) 7.25 10^3/uL (1.8-7.7) 01/25/23 12:16 Lymph # (Auto) 1.4 10^3/uL (0.8-4.8) 01/25/23 12:16 Kenton # (Auto) 0.4 10^3/uL (0.2-0.9) 01/25/23 12:16 Eos # (Auto) 0.1 10^3/uL (0.0-0.8) 01/25/23 12:16 Baso # (Auto) 0.0 10^3/uL (0.0-0.1) 01/25/23 12:16 Nucleated RBC % (auto) 0 % 01/25/23 12:16 Nucleated RBCs # 0.0 /100WBC 01/25/23 12:16 Sodium 137 mmol/L (136-145) 01/25/23 12:16 Potassium 3.1 mmol/L (3.5-5.1) L 01/25/23 12:16 Chloride 98 mmol/L (98-107) 01/25/23 12:16 Carbon Dioxide 26 mmol/L (22-29) 01/25/23 12:16 Anion Gap 16.1 (5-19) 01/25/23 12:16 BUN 14 mg/dL (6-20) 01/25/23 12:16 Creatinine 0.9 mg/dL (0.5-0.9) 01/25/23 12:16 GFR Calculation 69.0 mL/min (90-130) L 01/25/23 12:16 Glucose 100 mg/dL (65-115) 01/25/23 12:16 Calculated Osmolality 285 mOsm/kg (285-295) 01/25/23 12:16 Calcium 8.6 mg/dL (8.5-10.5) 01/25/23 12:16 Total Bilirubin 0.3 mg/dL (0.15-1.2) 01/25/23 12:16 AST 34 U/L (0-32) H 01/25/23 12:16 ALT 36 U/L (0-33) H 01/25/23 12:16 Alkaline Phosphatase 96 U/L (35-105) 01/25/23 12:16 Total Protein 8.4 g/dL (6.6-8.7) 01/25/23 12:16 Albumin 4.4 g/dL (3.5-5.2) 01/25/23 12:16 Globulin 4.0 g/dL (1.3-4.6) 01/25/23 12:16 Salicylates < 0.3 mg/dL (3-10) L 01/25/23 12:16 Acetaminophen < 5.0 ug/mL (10-30) L 01/25/23 12:16 Ethyl Alcohol < 10 mg/dL (0-10) 01/25/23 12:16 Discharge Plan Discharge Patient Disposition: Admitted As Inpatient Admit Provider: Jordin Levin Clinical Impression: Suicidal ideation, Left knee pain, Effusion of left knee joint Condition: Stable Discharge Diet: Regular Discharge Activity: Increase activity as tolerated Coding Level of Care Code ED Oil Dispenser for Chg Fwd Documented by User: Azar Valle DO 01/25/23 15:08 HPI - Extremity Problem General: Chief complaint: Extremity Injury, Lower Stated complaint: Knee pains Time Seen by Provider: 01/25/23 09:00 [facility] ED PFSH: Medical History (Updated 01/25/23 @ 11:12 by JONO Gómez) Abnormal uterine bleeding (AUB) Asthma Benign essential HTN Bilateral primary osteoarthritis of knee DDD (degenerative disc disease) Fatty infiltration of liver Gender dysphoria Hypothyroidism Intervertebral disc disorders with radiculopathy, lumbar region Major depressive disorder, recurrent severe without psychotic features Methamphetamine dependence, episodic Morbid obesity with BMI of 50.0-59.9, adult Nicotine dependence, cigarettes, uncomplicated Opiate abuse, episodic Pyuria Uncontrolled type 2 diabetes mellitus, without long-term current use of insulin Urinary incontinence Surgical History (Updated 01/02/23 @ 11:12 by Jayda Avilez LPN) History of endometrial biopsy (04/13/20) benign endocervical epithelium History of ureter stent Hx of foot surgery S/P laparoscopic appendectomy (04/19/20) Family History (Updated 01/02/23 @ 11:14 by Jayda Avilez LPN) Mother Diabetes Sister Cancer ovarian Other Dementia Heart disease Hypertension Psychiatric illness Denies family history of CAD (coronary artery disease) Clotting disorder Hyperlipidemia Chronic kidney disease (CKD) Anesthesia complication Bleeding disorder Lung disease Stroke Social History (Updated 01/02/23 @ 11:15 by Jayda Avilez LPN) Smoking and tobacco status: current every day smoker cigarettes Packs smoked per day: 0.5 Alcohol intake: current Alcohol intake frequency: few times a month Alcohol type: beer and hard liquor Substance/Drug Use: current Substance/Drug use frequency: few times a month Other substance/drug use details: Occasional marijuana Lives independently: Yes Household members: other Details: partner and her mom Marital status: Single Number of children: 0 Current occupational status: disabled Current gender identity: Male and Other Gender Identity Comment: Goes by Saul, considering formal transition Special hero needs: No Agree to transfusion: Yes Course Vital Signs: Vital signs: Vital Signs Temperature 98.1 F 01/25/23 13:40 Pulse Rate 80 01/25/23 14:58 Respiratory Rate 18 01/25/23 14:58 Blood Pressure 151/101 01/25/23 14:58 Pulse Oximetry 95 01/25/23 14:58 Oxygen Delivery Me thod Room Air 01/25/23 13:40 MDM - Extremity (Nontraumatic) Medical Decision Making Patient is a 42-year-old female comes to the ED with left knee pain. Patient says this knee pain has been going on for a while but she reinjured it yesterday. Patient states that she missed an appointment with orthopedic clinic for evaluation of her knee pain. I spoke with patient about the knee x-ray results and told her I would give her the orthopedic clinic's phone number so she can call up there to try to reschedule her previous appointment to evaluate her knee pain. Patient was okay with plan at that time. The nurse went in to go through discharge patient and she began getting emotional and crying and saying she wants to kill herself and that she does not want to live her life anymore. I went in and spoke with patient and she stated that she has nowhere to go and she was just kicked out of the place she was living and a restraining order was put arm. She is very emotional and crying and saying that she has been thinking of suicide for a while. She kept making statements that she does not want to live her life anymore. I told her I will contact the psychiatrist production cost estimator and see about admitting her to the NPU. I contacted Dr. Eller and told him about patient case and he agreed to have patient admitted to the NPU for further evaluation. Discussed with JONO Gómez. Seen and interviewed patient she is expressing suicidal ideation orders written will admit to Dr. Cabrera in the [facility]. Agree with Xander Cabezas's documentation findings same on my history and exam. Lab Data 01/25/23 12:16 01/25/23 12:16 Radiology Impressions Knee X-Ray 01/25/23 09:00 IMPRESSION: 1. Minimal joint effusion without acute fracture. 2. Moderate tricompartmental osteoarthritis. Laboratory Results WBC 9.1 10^3/uL (4.0-10.0) 01/25/23 12:16 RBC 5.20 10^6/uL (4.1-5.3) 01/25/23 12:16 Hgb 13.8 g/dL (11.5-15.3) 01/25/23 12:16 Hct 44.3 % (37.0-47.0) 01/25/23 12:16 MCV 85.2 fl (81-99) 01/25/23 12:16 MCH 26.5 pg (28.0-34.0) L 01/25/23 12:16 MCHC 31.2 g/dL (30.0-36.0) 01/25/23 12:16 RDW 16.5 % (12.1-15.1) H 01/25/23 12:16 Plt Count 360 10^3/cmm (130-400) 01/25/23 12:16 MPV 10.0 fL (7.4-10.4) 01/25/23 12:16 Neut % (Auto) 79.5 % 01/25/23 12:16 Lymph % (Auto) 15.0 % 01/25/23 12:16 Kenton % (Auto) 3.8 % 01/25/23 12:16 Eos % (Auto) 1.2 % 01/25/23 12:16 Baso % (Auto) 0.2 % 01/25/23 12:16 Neut # (Auto) 7.25 10^3/uL (1.8-7.7) 01/25/23 12:16 Lymph # (Auto) 1.4 10^3/uL (0.8-4.8) 01/25/23 12:16 Kenton # (Auto) 0.4 10^3/uL (0.2-0.9) 01/25/23 12:16 Eos # (Auto) 0.1 10^3/uL (0.0-0.8) 01/25/23 12:16 Baso # (Auto) 0.0 10^3/uL (0.0-0.1) 01/25/23 12:16 Nucleated RBC % (auto) 0 % 01/25/23 12:16 Nucleated RBCs # 0.0 /100WBC 01/25/23 12:16 Sodium 137 mmol/L (136-145) 01/25/23 12:16 Potassium 3.1 mmol/L (3.5-5.1) L 01/25/23 12:16 Chloride 98 mmol/L (98-107) 01/25/23 12:16 Carbon Dioxide 26 mmol/L (22-29) 01/25/23 12:16 Anion Gap 16.1 (5-19) 01/25/23 12:16 BUN 14 mg/dL (6-20) 01/25/23 12:16 Creatinine 0.9 mg/dL (0.5-0.9) 01/25/23 12:16 GFR Calculation 69.0 mL/min (90-130) L 01/25/23 12:16 Glucose 100 mg/dL (65-115) 01/25/23 12:16 Calculated Osmolality 285 mOsm/kg (285-295) 01/25/23 12:16 Calcium 8.6 mg/dL (8.5-10.5) 01/25/23 12:16 Total Bilirubin 0.3 mg/dL (0.15-1.2) 01/25/23 12:16 AST 34 U/L (0-32) H 01/25/23 12:16 ALT 36 U/L (0-33) H 01/25/23 12:16 Alkaline Phosphatase 96 U/L (35-105) 01/25/23 12:16 Total Protein 8.4 g/dL (6.6-8.7) 01/25/23 12:16 Albumin 4.4 g/dL (3.5-5.2) 01/25/23 12:16 Globulin 4.0 g/dL (1.3-4.6) 01/25/23 12:16 Salicylates < 0.3 mg/dL (3-10) L 01/25/23 12:16 Acetaminophen < 5.0 ug/mL (10-30) L 01/25/23 12:16 Ethyl Alcohol < 10 mg/dL (0-10) 01/25/23 12:16 Discharge Plan Discharge Patient Disposition: Admitted As Inpatient Admit Provider: Jordin Levin Clinical Impression: Suicidal ideation, Left knee pain, Effusion of left knee joint Condition: Stable Discharge Diet: Regular Discharge Activity: Increase activity as tolerated Coding Level of Care Code ED Oil Dispenser for Milagro Lao
[2023-01-25] MEDS: HYDROcodone-acetaminophen 5-325 mg Tablet 1 TAB PO (10:16)
--- NOTE | 2023-01-25 10:54 | PC.NURSE ---
Reviewing discharge instructions with patient when she reported she was going to kill herself, and that nobody cared. She reported this is situational, and that she has a dog to take care of. She also reported she wasn't staying here, and wanted to go home so she could take care of her dog. Xander Cabezas notified.
[2023-01-25] MEDS: LORazepam 2 mg Tablet PO (11:52)
[2023-01-25 12:54] LABS: Basophils % 0.2 %; Eosinophils # 0.1 10^3/uL (0.0-0.8); Eosinophils % 1.2 %; Hematocrit 44.3 % (37.0-47.0); Hemoglobin 13.8 g/dL (11.5-15.3); Lymphocytes # 1.4 10^3/uL (0.8-4.8); Mean Corpuscular HGB Conc 31.2 g/dL (30.0-36.0); Mean Corpuscular Hemoglobin 26.5 pg (28.0-34.0); Mean Corpuscular Volume 85.2 fl (81-99); Monocytes # 0.4 10^3/uL (0.2-0.9); Monocytes % 3.8 %; Neutrophils # 7.25 10^3/uL (1.8-7.7); Neutrophils % 79.5 %; Nucleated Red Blood Cells % 0 %; Platelet Count 360 10^3/cmm (130-400); Red Cell Distribution Width 16.5 % (12.1-15.1); White Blood Count 9.1 10^3/uL (4.0-10.0)
[2023-01-25 12:58] LABS: Alanine Aminotransferase 36 U/L (0-33); Albumin Level 4.4 g/dL (3.5-5.2); Alkaline Phosphatase 96 U/L (35-105); Anion Gap 16.1 (5-19); Aspartate Amino Transferase 34 U/L (0-32); Blood Urea Nitrogen 14 mg/dL (6-20); Calcium 8.6 mg/dL (8.5-10.5); Carbon Dioxide 26 mmol/L (22-29); Chloride 98 mmol/L (98-107); Glucose 100 mg/dL (65-115); Osmolality Calculated 285 mOsm/kg (285-295); Potassium 3.1 mmol/L (3.5-5.1); Sodium 137 mmol/L (136-145); Total Bilirubin 0.3 mg/dL (0.15-1.2); Total Protein 8.4 g/dL (6.6-8.7)
[2023-01-25 13:05] LABS: Acetaminophen < 5.0 ug/mL (10-30); Alcohol Level < 10 mg/dL (0-10); Salicylate < 0.3 mg/dL (3-10)
[2023-01-25] MEDS: potassium chloride ER 20 mEq Tablet 40 MEQ PO (13:24)
[2023-01-25] MEDS: trazodone 150 mg Tablet PO (21:00)
[2023-01-25] MEDS: gabapentin 400 mg Capsule 1200 MG PO (21:00)
[2023-01-26 06:00] VITALS: BP 116/63; PULSE 93; RESP 17; O2SAT 97; BMI 41.8
[2023-01-26] MEDS: LORazepam 2 mg Tablet PO (09:39)
[2023-01-26] MEDS: montelukast sodium 10 mg Tablet PO (09:39)
[2023-01-26] MEDS: gabapentin 400 mg Capsule 1200 MG PO ×3 (09:39→20:09)
--- NOTE | 2023-01-26 10:28 | P.NPUHP_ITS ---
Providers/Chief Complaint Admitting Physician: Jordin Levin MD Primary Care Provider: Willard Ham MD Chief Complaint: suicidal ideation HPI NPU History of Present Illness Lorie Chacon is a 42 year old female who arrived into the emergency depart ment complaining of left knee pain. Prior to her discharge from the emergency department, patient had endorsed suicidal ideation stating that she was homeless and could not live this way. The patient was admitted to the neuropsychiatric unit for further evaluation and treatment. The patient reports that she had a restraining order put on her at the previous location she was residing at and states that she and her canine were summarily removed from the home. She reports that she had been residing there for the past 6 months. She had reported strong feelings of abandonment. She has a past history of borderline personality disorder and polysubstance abuse along with depression. She states that she had been clean off methamphetamine but has relapsed over the last 6 months since moving back from [place]. She states that she cannot stay in a long-term as she will begin using meth again. She reports that she does need help with managing her depression. She reports either sleeping too much or sleeping too little. She reports sleep continuity disruption. She reports depressed mood for several months. She endorses continued feelings of hopelessness. She reports chronic feelings of abandonment. She reports a history of intense interpersonal relationships. She had endorsed that she has been avoiding alcohol but continues to use marijuana on a daily basis. She endorses no recent self-injurious behavior. She does report that her medical problems have also increased her stress level. She reports frequent panic attacks that are partially managed by lorazepam prescribed to her. She denies any psychotic symptoms nor does she endorse any symptoms suggestive of park. Patient reports low energy and difficulties with concentration. She reports depressed mood having been present for greater than 6 months. She had endorsed infrequent thoughts of suicide. She had reported increased tearfulness and increased sense of hopelessness with her declining function medically. Inpatient psychiatric history: Patient reports her last hospitalization was several years ago although she had reported greater than 5 inpatient hospitalizations in her lifetime. Outpatient psychiatric history: She had previously been diagnosed with binge eating disorder, borderline personality disorder, generalized anxiety disorder, panic disorder without agoraphobia, and major depressive disorder recurrent severe. She states that she has not been getting therapy currently but had previously seen a psychiatrist with numerous medication trials including treatment for depression. Previous medications listed in chart include Paxil, Celexa, Wellbutrin, amitriptyline, BuSpar, Effexor and trazodone. She does report a past history of multiple suicide attempts. Previous records state that she had received outpatient services through the [facility] in [facility]. She had also reported a history of treatment in [place] which was her place of . Drug and alcohol history: She had reported no prior history of inpatient treatment for addiction although she had stated outpatient treatment for addiction in the past. She had a previous history of methamphetamine use for several years including intravenous amphetamine use and recent use of oral amphetamines with the longest period of abstinence being 8 months. She had reported a past history of alcohol use but reported no history of significant alcohol abuse with no history of withdrawal symptoms. She reports that she has not used alcohol in several months. She reported chronic marijuana use. She also reports having previously used opiates but has not used them several months with a past history of methadone and Suboxone treatment Medical history: Asthma, bilateral osteoarthritis of the knee, degenerative disc disease, fatty infiltration of liver, hypothyroidism, radiculopathy, morbid obesity, pyuria, urinary incontinence, type 2 diabetes mellitus with use of insulin, Surgical history: Multiple foot surgeries beginning in childhood, history of ureter stent placement, history of very of endometrial biopsy, Current medications: Meloxicam, Advair, lorazepam 2 mg daily for panic attacks, gabapentin 600 mg 2 tablets 3 times a day, cyclobenzaprine 10 mg twice a day, Celebrex 200 mg twice a day, albuterol 2 puffs as needed Hx: none Legal Hx: She reports having been incarcerated before in the past. There have been charges of stealing. Family History: History of completed suicide in maternal aunt. Mother had a history of depression and anxiety Social History: -Born in [facility], biological father mother's sister, mother's , step father,? 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 ? -Unemployed, on disability, received disability over 30 years ago, have no idea what I got it for. She is currently homeless. She reported no history of sexual physical or emotional abuse. There had been previous reports of gender dysphoria. She reports having no social support from her family who live in [place]. Meds NPU Home Medications Medication Instructions Recorded Confirmed Last Taken Type albuterol sulfate 90 mcg/actuation 2 puff inhalation Q6H PRN 10/11/21 01/25/23 Unknown History aerosol inhaler Shortness Of Breath acetaminophen 500 mg tablet 1,500 mg PO Q4H PRN Pain 11/05/21 01/25/23 Unknown History cyclobenzaprine 10 mg tablet 10 mg PO BID PRN muscle spasm #20 12/09/22 01/25/23 Unknown Rx tabs gabapentin 600 mg tablet 1,200 mg PO TID 30 days #180 tabs 01/02/23 01/25/23 Unk nown Rx lorazepam 2 mg tablet 2 mg PO DAILY #30 tabs 01/02/23 01/25/23 Unknown Rx meloxicam 15 mg tablet 15 mg PO DAILY PRN pain #90 tabs 01/02/23 01/25/23 Unknown Rx montelukast 10 mg tablet 10 mg PO DAILY 01/02/23 01/25/23 Unknown History (Singulair) trazodone 150 mg tablet 150 mg PO BEDTIME #30 tabs 01/02/23 01/25/23 Unknown Rx celecoxib 100 mg capsule 100 mg PO BID PRN pain #20 caps 01/25/23 Unknown Rx Allergies Allergy/AdvReac Type Severity Reaction Status Date / Time naltrexone Allergy ALGY-Difficulty Verified 01/25/23 08:38 Breathing PFSH NPU PFSH: Medical History (Updated 01/26/23 @ 11:14 by Jordin Levin MD) Abnormal uterine bleeding (AUB) Asthma Benign essential HTN Bilateral primary osteoarthritis of knee DDD (degenerative disc disease) Fatty infiltration of liver Gender dysphoria Hypothyroidism Intervertebral disc disorders with radiculopathy, lumbar region Major depressive disorder, recurrent severe without psychotic features Methamphetamine dependence, episodic Morbid obesity with BMI of 50.0-59.9, adult Nicotine dependence, cigarettes, uncomplicated Opiate abuse, episodic Pyuria Uncontrolled type 2 diabetes mellitus, without long-term current use of insulin Urinary incontinence Surgical History (Updated 01/02/23 @ 11:12 by Jayda Avilez LPN) History of endometrial biopsy (04/13/20) benign endocervical epithelium History of ureter stent Hx of foot surgery S/P laparoscopic appendectomy (04/19/20) Family History (Updated 01/02/23 @ 11:14 by Jayda Avilez LPN) Mother Diabetes Sister Cancer ovarian Other Dementia Heart disease Hypertension Psychiatric illness Denies family history of CAD (coronary artery disease) Clotting disorder Hyperlipidemia Chronic kidney disease (CKD) Anesthesia complication Bleeding disorder Lung disease Stroke Social History (Updated 01/02/23 @ 11:15 by Jayda Avilez LPN) Smoking and tobacco status: current every day smoker cigarettes Packs smoked per day: 0.5 Alcohol intake: current Alcohol intake frequency: few times a month Alcohol type: beer and hard liquor Substance/Drug Use: current Substance/Drug use frequency: few times a month Other substance/drug use details: Occasional marijuana Lives independently: Yes Household members: other Details: partner and her mom Marital status: Single Number of children: 0 Current occupational status: disabled Current gender identity: Male and Other Gender Identity Comment: Goes by Saul, considering formal transition Special hero needs: No Agree to transfusion: Yes Mental Status Exam MSE Comments: Patient was lying in her bedroom in the dark and appeared to have poor hygiene. Her gait was not tested. There was evidence of mild psychomotor retardation. She was seen moderate distress. Her speech was normal in regards to rate rhythm and prosody. Her mood was described as depressed. Her affect was restricted in range and mood-congruent. She endorsed suicidal ideation with no active plan. She denied any homicidal ideation. Central themes in her conversation included feelings of abandonment. Her thought process was linear logical and goal- directed. There was no evidence of delusional thinking. She did not appear to be responding internal stimuli. Her attention span was variable today. Her recent and remote memory were intact. Her insight is poor. Her judgment is poor. Her impulse control appeared limited. Her intelligence appeared to be within normal range. Vitals/I&O/Wt Last Vital Signs Temp 97.5 F L 01/25/23 19:56 Pulse 93 01/26/23 06:00 Resp 17 01/26/23 06:00 BP 116/63 01/26/23 06:00 Pulse Ox 97 01/26/23 06:00 O2 Del Method Room Air 01/26/23 08:06 Weight last 48 hrs Weight 136.078 kg Weight 136.078 kg Data NPU 01/25/23 12:16 01/25/23 12:16 A&P Assessment and plan (1) Major depressive disorder, recurrent severe without psychotic features: (2) Suicidal ideation: (3) Anxiety: (4) Panic attacks: (5) Borderline personality disorder: Plan Patient is a 42-year-old white female with a history of multiple medical problems endorsing suicidal ideation with a active use of methamphetamine and a history of borderline personality disorder and major depression. She would likely benefit from continued inpatient hospital stay while initiating medications to target depression. 1.?Encourage individual, group and milieu therapy. 2.?Recommend sober living treatment at the highest level of care to which the patient is willing to commit. 3.??? Continue q-15 minute checks for safety.? 4. Restart outpatient medications. Initiate Paxil to target depression and an xiety. 5. Reorder electrolytes as patient's potassium was 3.1 but was given potassium chloride in the emergency department prior to admission. Involuntary Hold Information 96 Hour Hold: 96 Hour Involuntary Admission: No Attestations NPU Medical Necessity Statement*: Inpatient hospitalization is medically necessary and deemed to be the clinically appropriate intervention at this time.? We will monitor/initiate medications and make changes as indicated.? She will be in the hospital for over 2 midnights.? Likely length of stay4-7 days. Coding Level of Care Code Acute Code for g Fwd Diagnoses Major depressive disorder, recurrent severe without psychotic features F33.2 Suicidal ideation R45.851 Anxiety F41.9 Panic attacks F41.0 Borderline personality disorder F60.3
[2023-01-26 14:00] VITALS: BP 115/72; PULSE 70; RESP 16; TEMP 36.8; O2SAT 98
[2023-01-26 19:39] VITALS: BP 113/71; PULSE 78; RESP 16; O2SAT 98
[2023-01-26] MEDS: trazodone 150 mg Tablet PO (20:09)
[2023-01-27 06:00] VITALS: BP 134/83; PULSE 68; RESP 18; O2SAT 97
[2023-01-27] MEDS: montelukast sodium 10 mg Tablet PO (08:32)
[2023-01-27] MEDS: LORazepam 2 mg Tablet PO (08:32)
[2023-01-27] MEDS: gabapentin 400 mg Capsule 1200 MG PO ×3 (08:32→20:22)
[2023-01-27 14:00] VITALS: BP 120/77; PULSE 76; RESP 16; TEMP 36.5; O2SAT 95
--- NOTE | 2023-01-27 16:35 | W.PM.NPUPNS ---
Subjective NPU Subjective: 42-year-old white female admitted with suicidal ideation with a history of borderline personality disorder polysubstance abuse along with major depressive disorder. She had continued to appear demanding on the unit. She had continued to express anger at not being able to find a place to live with her canine. She reported that she continued to struggle with anxiety and continue to report wanting to . She reported continued feelings of hopelessness. She had isolated herself on the milieu and spent time resting. She continued to complain of a myriad of problems physically including knee pain. She had been minimally cooperative on the unit. She appeared somewhat guarded and stated that she had no supports here but stated that she did not wish to go back to [place] where she had resided. Mental Status Exam MSE Comments: Patient was lying in her bedroom in the dark and appeared to have poor hygiene. Her gait was not tested. There was evidence of continued psychomotor retardation. She was seen moderate distress. Her speech was normal in regards to rate rhythm and prosody. Her mood was described as depressed. Her affect was restricted in range and mood-congruent. She endorsed suicidal ideation with no active plan. She denied any homicidal ideation. Central themes in her conversation included feelings of abandonment. Her thought process was linear logical and goal-directed. There was no evidence of delusional thinking. She did not appear to be responding internal stimuli. Her attention span was variable today. Her recent and remote memory were intact. Her insight is poor. Her judgment is poor. Her impulse control appeared limited. Her intelligence appeared to be within normal range. Vitals/I&O/Wt Last Vital Signs Temp 97.7 F 01/27/23 14:00 Pulse 76 01/27/23 14:00 Resp 16 01/27/23 14:00 BP 120/77 01/27/23 14:00 Pulse Ox 95 01/27/23 14:00 O2 Del Method Room Air 01/26/23 19:39 Weight last 48 hrs Weight 136.078 kg Data NPU 01/25/23 12:16 01/25/23 12:16 A&P Assessment and plan (1) Major depressive disorder, recurrent severe without psychotic features: (2) Suicidal ideation: (3) Anxiety: (4) Panic attacks: (5) Borderline personality disorder: Plan Patient is a 42-year-old white female with a history of multiple medical problems endorsing suicidal ideation with a active use of methamphetamine and a history of borderline personality disorder and major depression. She would likely benefit from continued inpatient hospital stay while initiating medications to target depression. 1.??? Encourage individual, group and milieu therapy. 2.??? Recommend sober living treatment at the highest level of care to which the patient is willing to commit. 3.??? Continue q-15 minute checks for safety.? 4. Restart outpatient medications. Start Paxil at 20mg at night to target depression and anxiety. D/C ativan and begin Klonopin .5mg bid. 5. Reorder electrolytes as patient's potassium was 3.1 but was given potassium chloride in the emergency department prior to admission. Involuntary Hold Information 96 Hour Hold: 96 Hour Involuntary Admission: No Attestations NPU Medical Necessity Statement*: Inpatient hospitalization is medically necessary and deemed to be the clinically appropriate intervention at this time.? We will monitor/initiate medications and make changes as indicated.? Likely length of stay 4-7 days. Coding Level of Care Code Acute Code for [facility] Fwd Diagnoses Major depressive disorder, recurrent severe without psychotic features F33.2 Suicidal ideation R45.851 Anxiety F41.9 Panic attacks F41.0 Borderline personality disorder F60.3
--- NOTE | 2023-01-27 16:45 | PC.NURSE ---
NEW ORDERS RECEIVED FROM DR. BILL TO HAVE LAB COLLECT A CMP. PT K+ WAS 3.1 ON ADMISSION AND WAS GIVEN K+ REPLACEMENT AT THAT TIME. REPEAT CMP ORDERED PER REQUEST. ORDERS PLACED. PT EDUCATED ON TEST, ALL QUESTIONS ANSWERED AND SUPPORT WAS VOICED.
[2023-01-27] MEDS: CLONazepam 0.5 mg Tablet PO (18:30)
[2023-01-27 18:50] LABS: Add Urine Microscopic? NO; Charge for UA Resulting for Rev
[2023-01-27 18:53] LABS: Bilirubin Urine Neg (Negative); Blood Urine Neg (Negative); Glucose Urine UA Norm (Normal); Ketones Urine Negative (Negative); Leukocyte Esterase Urine Negative (Negative); Nitrate Urine Negative (Negative); Protein Urine Neg (Negative); Urine Appearance Clear (CLEAR); Urine Color Yellow (Yellow); Urobilinogen Urine Norm (Negative); pH Urine 5 (5-7)
[2023-01-27 19:14] LABS: Amphetamines Screen Urine Positive (Negative); Barbiturates Screen Urine Negative (Negative); Benzodiazepines Screen Urine Positive (Negative); Cocaine Screen Urine Negative (Negative); Opiate Screen Urine Negative (Negative); PCP Screen Urine Negative (Negative); THC Screen Urine Positive (Negative)
[2023-01-27 19:50] VITALS: BP 120/76; PULSE 80; RESP 18; O2SAT 97
[2023-01-27] MEDS: trazodone 150 mg Tablet PO (20:22)
[2023-01-27 20:57] LABS: Alanine Aminotransferase 14 U/L (0-33); Albumin Level 3.4 g/dL (3.5-5.2); Alkaline Phosphatase 71 U/L (35-105); Anion Gap 12.1 (5-19); Aspartate Amino Transferase 13 U/L (0-32); Blood Urea Nitrogen 13 mg/dL (6-20); Calcium 8.5 mg/dL (8.5-10.5); Carbon Dioxide 27 mmol/L (22-29); Chloride 102 mmol/L (98-107); Creatinine Clr Calc Pharmacy 141.5812; Glucose 107 mg/dL (65-115); Osmolality Calculated 285 mOsm/kg (285-295); Potassium 4.1 mmol/L (3.5-5.1); Sodium 137 mmol/L (136-145); Total Bilirubin 0.2 mg/dL (0.15-1.2); Total Protein 6.4 g/dL (6.6-8.7)
[2023-01-28 06:00] VITALS: BP 101/66; PULSE 64; RESP 15; O2SAT 96
[2023-01-28] MEDS: gabapentin 400 mg Capsule 1200 MG PO ×3 (09:05→20:04)
[2023-01-28] MEDS: PARoxetine 20 mg Tablet PO (09:05)
[2023-01-28] MEDS: montelukast sodium 10 mg Tablet PO (09:05)
[2023-01-28] MEDS: CLONazepam 0.5 mg Tablet PO ×2 (09:05→18:19)
[2023-01-28 13:31] VITALS: BP 133/86; PULSE 81; RESP 16; TEMP 36.8; O2SAT 95
--- NOTE | 2023-01-28 16:27 | P.NPUPN_ITS ---
Subjective NPU Subjective: 42-year-old white female admitted with suicidal ideation with a history of borderline personality disorder, polysubstance abuse ,along with major depressive disorder. Patient had been agreeable to considering receiving intensive services through [facility]. She continued to report that she could not go to a detention as she would go back to using methamphetamine. She continued to perseverate about wanting to have her dog back despite the patient having a restraining order against her from the person who currently had her canine. She had continued to complain about a myriad of medical issues. She had continue to report depressed mood and reported that she had no desire to return to [place] at this time. Patient reported no side effects from her Klonopin at this time. Mental Status Exam MSE Comments: Patient is an obese white female who appeared her stated age. She had a wide- based gait. She had poor hygiene. There was evidence of continued psychomotor retardation. She was seen moderate distress. Her speech was normal in regards to rate rhythm and prosody. Her mood was described as depressed. Her affect was labile And irritable. She endorsed suicidal ideation with no active plan. She denied any homicidal ideation. Central themes in her conversation included feelings of abandonment, with use of projection. Her thought process was linear, logical, and goal-directed. There was no evidence of delusional thinking. She did not appear to be responding internal stimuli. Her attention span was variable today. Her recent and remote memory were intact. Her insight is limited. Her judgment is poor. Her impulse control appeared limited. Her intelligence appeared to be within normal range. Vitals/I&O/Wt Last Vital Signs Temp 98.2 F 01/28/23 13:31 Pulse 81 01/28/23 13:31 Resp 16 01/28/23 13:31 BP 133/86 01/28/23 13:31 Pulse Ox 95 01/28/23 13:31 O2 Del Method Room Air 01/28/23 06:00 Data NPU 01/25/23 12:16 01/27/23 20:07 A&P Assessment and plan (1) Major depressive disorder, recurrent severe without psychotic features: (2) Suicidal ideation: (3) Anxiety: (4) Panic attacks: (5) Borderline personality disorder: Plan Patient is a 42-year-old white female with a history of multiple medical problems endorsing suicidal ideation with a active use of methamphetamine and a history of borderline personality disorder and major depression. She would likely benefit from continued inpatient hospital stay while initiating medications to target depression. 1.??? Encourage individual, group and milieu therapy. 2.??? Recommend sober living treatment at the highest level of care to which the patient is willing to commit. 3.??? Continue q-15 minute checks for safety.? 4. Restart outpatient medications. Increase Paxil to 30mg daily to target depression and anxiety. Continue Klonopin .5mg bid. 5. Reorder electrolytes as patient's potassium was 3.1 but was given potassium chloride in the emergency department prior to admission. Involuntary Hold Information 96 Hour Hold: 96 Hour Involuntary Admission: No Attestations NPU Medical Necessity Statement*: Inpatient hospitalization is medically necessary and deemed to be the clinically appropriate intervention at this time.? We will monitor/initiate medications and make changes as indicated.? Likely length of stay 4-7 days. Coding Level of Care Code Acute Code for [facility] Fwd Diagnoses Major depressive disorder, recurrent severe without psychotic features F33.2 Suicidal ideation R45.851 Anxiety F41.9 Panic attacks F41.0 Borderline personality disorder F60.3
[2023-01-28 19:20] VITALS: BP 112/68; PULSE 71; RESP 18; O2SAT 96
[2023-01-28] MEDS: trazodone 150 mg Tablet PO (20:04)
[2023-01-28] MEDS: acetaminophen 325 mg Tablet 650 MG PO (20:41)
[2023-01-29] MEDS: acetaminophen 500 mg Tablet 1500 MG PO ×2 (05:49→18:52)
[2023-01-29 06:00] VITALS: BP 104/70; PULSE 77; RESP 16; TEMP 36.6; O2SAT 94
[2023-01-29] MEDS: cyclobenzaprine 10 mg Tablet PO ×2 (09:05→20:28)
[2023-01-29] MEDS: gabapentin 400 mg Capsule 1200 MG PO ×3 (09:05→20:24)
[2023-01-29] MEDS: montelukast sodium 10 mg Tablet PO (09:05)
[2023-01-29] MEDS: PARoxetine 20 mg Tablet 30 MG PO (09:05)
[2023-01-29] MEDS: CLONazepam 0.5 mg Tablet PO ×2 (09:05→18:30)
--- NOTE | 2023-01-29 09:11 | PC.NURSE ---
limited shift assessment r/t behavior, irritable affect noted, cursing at staff because she had to stand at the nurses station a few minutes to receive medications.
[2023-01-29 13:23] VITALS: BP 97/59; PULSE 75; RESP 18; O2SAT 96
--- NOTE | 2023-01-29 15:09 | P.NPUPN_ITS ---
Subjective NPU Subjective: 42-year-old white female admitted with suicidal ideation with a history of borderline personality disorder, polysubstance abuse ,along with major depressive disorder. The patient had reported that she was feeling better. She continued to report depressed mood. She continued to report feelings of abandonment and stated that she continued to have periods of intense outburst. She continued to complain of a myriad of medical issues including pain. She had continue to limit that her dog was not with her. She had reported continued anxiety although she reported some reduction in her anxiety with Klonopin. Mental Status Exam MSE Comments: Patient is an obese white female who appeared her stated age. She had a wide- based gait. She had poor hygiene. There was evidence of continued psychomotor retardation. She was seen mild distress. Her speech was normal in regards to rate rhythm and prosody. Her mood was described as depressed. Her affect was restricted in range. She endorsed suicidal ideation with no active plan. She denied any homicidal ideation. Her thought process was linear, logical, and goal-directed. There was no evidence of delusional thinking. She did not a ppear to be responding internal stimuli. Her attention span was variable today. Her recent and remote memory were intact. Her insight is limited. Her judgment is poor. Her impulse control appeared limited. Her intelligence appeared to be within normal range. Vitals/I&O/Wt Last Vital Signs Temp 97.9 F 01/29/23 06:00 Pulse 75 01/29/23 13:23 Resp 18 01/29/23 13:23 BP 97/59 01/29/23 13:23 Pulse Ox 96 01/29/23 13:23 O2 Del Method Room Air 01/29/23 13:23 Data NPU 01/25/23 12:16 01/27/23 20:07 A&P Assessment and plan (1) Major depressive disorder, recurrent severe without psychotic features: (2) Suicidal ideation: (3) Anxiety: (4) Panic attacks: (5) Borderline personality disorder: Plan Patient is a 42-year-old white female with a history of multiple medical problems endorsing suicidal ideation with a active use of methamphetamine and a history of borderline personality disorder and major depression. She would likely benefit from continued inpatient hospital stay while initiating medications to target depression. 1.??? Encourage individual, group and milieu therapy. 2.??? Recommend sober living treatment at the highest level of care to which the patient is willing to commit. 3.??? Continue q-15 minute checks for safety.? 4. Restart outpatient medications. Continue Paxil at 30mg daily to target depression and anxiety. Continue Klonopin .5mg bid. 5. Involuntary Hold Information 96 Hour Hold: 96 Hour Involuntary Admission: No Attestations NPU Medical Necessity Statement*: Inpatient hospitalization is medically necessary and deemed to be the clinically appropriate intervention at this time.? We will monitor/initiate medications and make changes as indicated.? Likely length of stay 4-7 days. Coding Level of Care Code Acute Code for g Fwd Diagnoses Major depressive disorder, recurrent severe without psychotic features F33.2 Suicidal ideation R45.851 Anxiety F41.9 Panic attacks F41.0 Borderline personality disorder F60.3
[2023-01-29] MEDS: trazodone 150 mg Tablet PO (20:24)
[2023-01-29 21:05] VITALS: BP 121/76; PULSE 88; RESP 18; O2SAT 95
[2023-01-30 06:00] VITALS: BP 101/69; PULSE 55; RESP 16; TEMP 36.5; O2SAT 97
[2023-01-30] MEDS: acetaminophen 500 mg Tablet 1500 MG PO ×2 (09:47→20:41)
[2023-01-30] MEDS: PARoxetine 20 mg Tablet 30 MG PO (09:48)
[2023-01-30] MEDS: cyclobenzaprine 10 mg Tablet PO ×2 (09:48→20:37)
[2023-01-30] MEDS: montelukast sodium 10 mg Tablet PO (09:48)
[2023-01-30] MEDS: CLONazepam 0.5 mg Tablet PO ×2 (09:48→17:21)
[2023-01-30] MEDS: gabapentin 400 mg Capsule 1200 MG PO ×3 (09:48→20:36)
[2023-01-30 14:00] VITALS: BP 96/61; PULSE 73; RESP 17; TEMP 36.6; O2SAT 95
--- NOTE | 2023-01-30 18:04 | P.NPUPN_ITS ---
Subjective NPU Subjective: Patient presented today reporting that she has horrible pain issues. She reports that she came down to the area from [place] and has not reestablished all the providers she needs to be well. She reports being homeless and having limited options. She reported significant psychosocial stressors that led to the challenges that she has currently. She reports she is been working with the social work team for possible safe discharge planning with hopefully residential assistance. She reports they discussed the possibility of salute's, but we discusse as having no control over their availability. Mental Status Exam MSE Comments: This is an obese versus morbidly obese white female in hospital scrubs with limited grooming and eye contact. No abnormal movements except for significant psychomotor retardation and wide-based gait and significant difficulty getting out of a chair and walking independently. Cooperative with exam in moderate to at times significant distress. Speech was normal rate tone and volume. Mood described as a little better, affect distressed. Thought process organized. Thought content: Patient denied suicidal or homicidal ideation, no delusions reported or noted, she denied auditory or visual hallucinations. Attention and concentration appeared intact and memory seem somewhat reliable but not were formally tested. Alert and oriented x3. Insight, judgment and impulse control are limited. Vitals/I&O/Wt Last Vital Signs Temp 97.8 F 01/30/23 14:00 Pulse 94 01/30/23 21:47 Resp 18 01/30/23 21:47 BP 138/85 01/30/23 21:47 Pulse Ox 95 01/30/23 21:47 O2 Del Method Room Air 01/30/23 21:47 Data NPU 01/25/23 12:16 01/27/23 20:07 A&P Assessment and plan (1) Major depressive disorder, recurrent severe without psychotic features: (2) Suicidal ideation: (3) Anxiety: (4) Panic attacks: (5) Borderline personality disorder: Plan Patient is a 42-year-old white female with a history of multiple medical problems endorsing suicidal ideation with a active use of methamphetamine and a history of borderline personality disorder and major depression. She would likely benefit from continued inpatient hospital stay while initiating medications to target depression. 1.??? Encourage individual, group and milieu therapy. 2.??? Recommend sober living treatment at the highest level of care to which the patient is willing to commit. 3.??? Continue q-15 minute checks for safety.? 4. Restart outpatient medications. Continue Paxil at 30mg daily to target depression and anxiety. Continue Klonopin .5mg bid. 5. Involuntary Hold Information 96 Hour Hold: 96 Hour Involuntary Admission: No Attestations NPU Medical Necessity Statement*: Inpatient hospitalization is medically necessary and deemed to be the clinically appropriate intervention at this time.? We will monitor/initiate medications and make changes as indicated.? Likely length of stay 3-5 days. Coding Level of Care Code Acute Code for g Fwd Diagnoses Major depressive disorder, recurrent severe without psychotic features F33.2 Suicidal ideation R45.851 Anxiety F41.9 Panic attacks F41.0 Borderline personality disorder F60.3
[2023-01-30] MEDS: trazodone 150 mg Tablet PO (20:37)
[2023-01-30 21:47] VITALS: BP 138/85; PULSE 94; RESP 18; O2SAT 95
[2023-01-31 06:00] VITALS: BP 109/65; PULSE 62; RESP 20; TEMP 36.4; O2SAT 95
[2023-01-31] MEDS: PARoxetine 20 mg Tablet 30 MG PO (08:58)
[2023-01-31] MEDS: CLONazepam 0.5 mg Tablet PO (08:58)
[2023-01-31] MEDS: gabapentin 400 mg Capsule 1200 MG PO (08:58)
[2023-01-31] MEDS: montelukast sodium 10 mg Tablet PO (08:58)
[2023-01-31] MEDS: acetaminophen 325 mg Tablet 650 MG PO (09:03)
[2023-01-31] MEDS: cyclobenzaprine 10 mg Tablet PO (09:05)
--- NOTE | 2023-01-31 11:55 | DCPLANNER ---
IMM was printed and explained and give to pt and copy put in file.
[2023-01-31] MEDS: ibuprofen 600 mg Tablet PO (12:15)
--- NOTE | 2023-01-31 13:35 | P.NPUDS_ITS ---
Diagnoses at Discharge Discharge Diagnosis (1) Major depressive disorder, recurrent severe without psychotic features: Status: Chronic (2) Suicidal ideation: Status: Resolved (3) Anxiety: Status: Acute (4) Panic attacks: Status: Acute (5) Borderline personality disorder: Status: Acute Reason for Visit Reason for Visit: suicidal ideation Brief History: History of Present Illness Lorie Chacon is a 42 year old female who arrived into the emergency department complaining of left knee pain. Prior to her discharge from the emergency department, patient had endorsed suicidal ideation stating that she was homeless and could not live this way. The patient was admitted to the neuropsychiatric unit for further evaluation and treatment. The patient reports that she had a restraining order put on her at the previous location she was residing at and states that she and her canine were summarily removed from the home. She reports that she had been residing there for the past 6 months. She had reported strong feelings of abandonment. She has a past history of borderline personality disorder and polysubstance abuse along with depression. She states that she had been clean off methamphetamine but has relapsed over the last 6 months since moving back from [place]. She states that she cannot stay in a [facility] as she will begin using meth again. She reports that she does need help with managing her depression. She reports either sleeping too much or sleeping too little. She reports sleep continuity disruption. She reports depressed mood for several months. She endorses continued feelings of hopelessness. She reports chronic feelings of abandonment. She reports a history of intense interpersonal relationships. She had endorsed that she has been avoiding alcohol but continues to use marijuana on a daily basis. She endorses no recent self-injurious behavior. She does report that her medical problems have also increased her stress level. She reports frequent panic attacks that are partially managed by lorazepam prescribed to her. She denies any psychotic symptoms nor does she endorse any symptoms suggestive of park. Patient reports low energy and difficulties with concentration. She reports depressed mood having been present for greater than 6 months. She had endorsed infrequent thoughts of suicide. She had reported increased tearfulness and increased sense of hopelessness with her declining function medically. Inpatient psychiatric history: Patient reports her last hospitalization was several years ago although she had reported greater than 5 inpatient hospitalizations in her lifetime. Outpatient psychiatric history: She had previously been diagnosed with binge eating disorder, borderline personality disorder, generalized anxiety disorder, panic disorder without agoraphobia, and major depressive disorder recurrent severe. She states that she has not been getting therapy currently but had previously seen a psychiatrist with numerous medication trials including tessa dalton for depression. Previous medications listed in chart include Paxil, Celexa, Wellbutrin, amitriptyline, BuSpar, Effexor and trazodone. She does report a past history of multiple suicide attempts. Previous records state that she had received outpatient services through the [facility] in [facility]. She had also reported a history of treatment in [place] which was her place of . Drug and alcohol history: She had reported no prior history of inpatient treatment for addiction although she had stated outpatient treatment for addiction in the past. She had a previous history of methamphetamine use for several years including intravenous amphetamine use and recent use of oral amphetamines with the longest period of abstinence being 8 months. She had reported a past history of alcohol use but reported no history of significant alcohol abuse with no history of withdrawal symptoms. She reports that she has not used alcohol in several months. She reported chronic marijuana use. She also reports having previously used opiates but has not used them several months with a past history of methadone and Suboxone treatment Medical history: Asthma, bilateral osteoarthritis of the knee, degenerative disc disease, fatty infiltration of liver, hypothyroidism, radiculopathy, morbid obesity, pyuria, urinary incontinence, type 2 diabetes mellitus with use of insulin, Surgical history: Multiple foot surgeries beginning in childhood, history of ureter stent placement, history of very of endometrial biopsy, Current medications: Meloxicam, Advair, lorazepam 2 mg daily for panic attacks, gabapentin 600 mg 2 tablets 3 times a day, cyclobenzaprine 10 mg twice a day, Celebrex 200 mg twice a day, albuterol 2 puffs as needed Hx: none Legal Hx: She reports having been incarcerated before in the past. There have been charges of stealing. Family History: History of completed suicide in maternal aunt. 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 -Unemployed, on disability, received disability over 30 years ago, have no idea what I got it for. She is currently homeless. She reported no history of sex ual physical or emotional abuse. There had been previous reports of gender dysphoria. She reports having no social support from her family who live in [place]. Hospital Course Hospital Course Patient slowly acclimated to the individual, group and milieu therapies provided. She presented with significant depression, anxiety and mood dysregulation. Her Ativan was discontinued and Klonopin was restarted in its place at 0.5 mg twice daily and Paxil was started and titrated to 30 mg p.o. daily. She worked with the social work team for appropriate follow-up and aftercare. During hospitalization she had modest improvement and was able to contract for safety outside of the hospital prior to discharge. During the ho spitalization, she had routine laboratory studies which were within normal limits except for a few outliers. Additionally she had general medical evaluation which was also within normal limits and revealed no new acute processes. Discharge Summary At the time of discharge, she denied any lethality and was absent psychosis. Mood and anxiety were well managed and she endorsed a plan to avoid all drugs of abuse, and follow-up with the recommended post hospital services. She was evaluated and deemed to be absent credible lethality and had received the maximum benefit from an inpatient hospitalization, so was discharged. Involuntary Hold Information 96 Hour Hold: 96 Hour Involuntary Admission: No Mental Status Exam MSE Comments: This is an obese versus morbidly obese white female in hospital scrubs with limited grooming and eye contact. No abnormal movements except for significant psychomotor retardation and wide-based gait and significant difficulty getting out of a chair and walking independently. Cooperative with exam in mild distress. Speech was normal rate tone and volume. Mood described as a little better, affect less distressed. Thought process organized. Thought content: Patient denied suicidal or homicidal ideation, no delusions reported or noted, she denied auditory or visual hallucinations. Attention and concentration appeared intact and memory seem somewhat reliable but not were formally tested. Alert and oriented x3. Insight, judgment and impulse control are limited. Discharge Data Studies Completed and Pending: Completed Studies During Hospitalization Category Date Time Status XR knee LT 3V* [id number] Stat Exams 01/25/23 09:00 Completed Radiology Impressions Knee X-Ray 01/25/23 09:00 IMPRESSION: 1. Minimal joint effusion without acute fracture. 2. Moderate tricompartmental osteoarthritis. Laboratory Results WBC 9.1 10^3/uL (4.0- 10.0) 01/25/23 12:16 RBC 5.20 10^6/uL (4.1 -5.3) 01/25/23 12:16 Hgb 13.8 g/dL (11.5-1 5.3) 01/25/23 12:16 Hct 44.3 % (37.0-47.0 ) 01/25/23 12:16 MCV 85.2 fl (81-99) 01/25/23 12:16 MCH 26.5 pg (28.0-34. 0) L 01/25/23 12:16 MCHC 31.2 g/dL (30.0-3 6.0) 01/25/23 12:16 RDW 16.5 % (12.1-15.1 ) H 01/25/23 12:16 Plt Count 360 10^3/cmm (130 -400) 01/25/23 12:16 MPV 10.0 fL (7.4-10.4 ) 01/25/23 12:16 Neut % (Auto) 79.5 % 01/25/23 12:16 Lymph % (Auto) 15.0 % 01/25/23 12:16 Chambers % (Auto) 3.8 % 01/25/23 12:16 Eos % (Auto) 1.2 % 01/25/23 12:16 Baso % (Auto) 0.2 % 01/25/23 12:16 Neut # (Auto) 7.25 10^3/uL (1.8 -7.7) 01/25/23 12:16 Lymph # (Auto) 1.4 10^3/uL (0.8- 4.8) 01/25/23 12:16 Chambers # (Auto) 0.4 10^3/uL (0.2- 0.9) 01/25/23 12:16 Eos # (Auto) 0.1 10^3/uL (0.0- 0.8) 01/25/23 12:16 Baso # (Auto) 0.0 10^3/uL (0.0- 0.1) 01/25/23 12:16 Nucleated RBC % (a uto) 0 % 01/25/23 12:16 Nucleated RBCs # 0.0 /100WBC 01/25/23 12:16 Sodium 137 mmol/L (136-1 45) 01/27/23 20:07 Potassium 4.1 mmol/L (3.5-5 .1) 01/27/23 20:07 Chloride 102 mmol/L (98-10 7) 01/27/23 20:07 Carbon Dioxide 27 mmol/L (22-29) 01/27/23 20:07 Anion Gap 12.1 (5-19) 01/27/23 20:07 BUN 13 mg/dL (6-20) 01/27/23 20:07 Creatinine 0.8 mg/dL (0.5-0. 9) 01/27/23 20:07 GFR Calculation 79.0 mL/min (90-1 30) L 01/27/23 20:07 Glucose 107 mg/dL (65-115 ) 01/27/23 20:07 Calculated Osmolal ity 285 mOsm/kg (285- 295) 01/27/23 20:07 Calcium 8.5 mg/dL (8.5-10 .5) 01/27/23 20:07 Total Bilirubin 0.2 mg/dL (0.15-1 .2) 01/27/23 20:07 AST 13 U/L (0-32) 01/27/23 20:07 ALT 14 U/L (0-33) 01/27/23 20:07 Alkaline Phosphata se 71 U/L (35-105) 01/27/23 20:07 Total Protein 6.4 g/dL (6.6-8.7 ) L 01/27/23 20:07 Albumin 3.4 g/dL (3.5-5.2 ) L 01/27/23 20:07 Globulin 3.0 g/dL (1.3-4.6 ) 01/27/23 20:07 Urine Color Yellow (Yellow) 01/27/23 18:25 Urine Appearance Clear (CLEAR) 01/27/23 18:25 Urine pH 5 (5-7) 01/27/23 18:25 Ur Specific Gravit y 1.010 (1.005-1.0 30) 01/27/23 18:25 Urine Protein Neg (Negative) 01/27/23 18:25 Urine Glucose (UA) Norm (Normal) 01/27/23 18:25 Urine Ketones Negative (Negati ve) 01/27/23 18:25 Urine Blood Neg (Negative) 01/27/23 18:25 Urine Nitrate Negative (Negati ve) 01/27/23 18:25 Urine Bilirubin Neg (Negative) 01/27/23 18:25 Urine Urobilinogen Norm mg/dL (Negat jeannie) 01/27/23 18:25 Ur Leukocyte Rosalva ase Negative (Negati ve) 01/27/23 18:25 Salicylates < 0.3 mg/dL (3-10 ) L 01/25/23 12:16 Urine Opiates Scre en Negative ng/mL (N egative) 01/27/23 18:25 Acetaminophen < 5.0 ug/mL (10-3 0) L 01/25/23 12:16 Ur Barbiturates Sc reen Negative ng/mL (N egative) 01/27/23 18:25 Ur Phencyclidine S crn Negative ng/mL (N egative) 01/27/23 18:25 Ur Amphetamines Sc reen Positive ng/mL (N egative) H 01/27/23 18:25 U Benzodiazepines Scrn Positive ng/mL (N egative) H 01/27/23 18:25 Urine Cocaine Scre en Negative ng/mL (N egative) 01/27/23 18:25 U Marijuana (THC) Screen Positive ng/mL (N egative) H 01/27/23 18:25 Ethyl Alcohol < 10 mg/dL (0-10) 01/25/23 12:16 Vitals: Last Vital Signs Temp 97.6 F 01/31/23 06:00 Pulse 62 01/31/23 06:00 Resp 20 H 01/31/23 06:00 BP 109/65 01/31/23 06:00 Pulse Ox 95 01/31/23 06:00 O2 Del Method Room Air 01/31/23 06:00 Discharge Plan Discharge Patient Disposition: Home Condition: Stable Prescriptions: New clonazepam 0.5 mg Tablet 0.5 mg PO BID 30 Days Qty: 60 1RF Continued meloxicam 15 mg tablet 15 mg PO DAILY PRN (Reason: pain) Qty: 90 0RF albuterol sulfate 90 mcg/actuation HFA aerosol inhaler 1 - 2 puff INHALATION Q4H PRN (Reason: Shortness Of Breath) acetaminophen 500 mg Tablet 1,500 mg PO Q6H PRN (Reason: Pain) gabapentin 600 mg tablet 1,200 mg PO TID 30 Days Qty: 180 1RF trazodone 150 mg tablet 150 mg PO BEDTIME 30 Days Qty: 30 1RF Discontinued montelukast [Singulair] 10 mg tablet 10 mg PO DAILY lorazepam 2 mg tablet 2 mg PO DAILY Qty: 30 0RF No Action ibuprofen 800 mg tablet 800 mg PO Q8H PRN (Reason: pain) Qty: 30 0RF hydrocodone-acetaminophen 7.5-325 mg tablet 1 tab PO BID PRN (Reason: pain (scale score 7-10)) Qty: 10 0RF tizanidine 4 mg tablet 4 mg PO Q8H PRN (Reason: Pain) paroxetine HCl 30 mg tablet 30 mg PO BEDTIME Singulair 10 mg tablet 10 mg PO BEDTIME tizanidine 4 mg capsule 4 mg PO Q8H PRN (Reason: muscle spasticity) Qty: 15 0RF ondansetron 4 mg tablet,disintegrating 4 mg PO Q8H PRN (Reason: nausea and vomiting) Qty: 12 0RF Discharge Orders: Discharge Order (Routine); Ordered 01/31/23 Ordered By: Bin Pineda Referrals: [facility] [Outside] - 02/03/23 11:30 am (Initial appointment with Payton Mendoza. ) Willard Ham MD [Primary Care Provider] - 02/18/23 9:30 am (Follow up) Discharge Diet: Regular Discharge Activity: Increase activity as tolerated Patient Instructions: Methamphetamine Use Disorder (GEN), Knee Pain (ED), Panic Attack (GEN), Suicide Prevention (DC), Opioid Safety Activity Restrictions/Additional Instructions: Follow-up with medical provider as directed. [facility] orthopedic clinic phone number [phone]. Give them a call to try to reset up your previous appointment. Continue taking all home medications as previously prescribed. Return to the ER or your medical provider if condition worsens. Please read and understand discharge instructions. Thank you for choosing [facility] for your healthcare needs today. Please realize this is an emergency room and that we are providing you with a medical screening exam and this may not be complete and all inclusive of all the testing and or work up that you may need to determine your ailment or severity of your illness. It is very important that you follow up as instructed or that you return to the Emergency Department should you have concerns or if your condition changes or worsens in any way. Discharge Attestations NPU Time Spent in Discharge Care*: less than 30 min Specific Discharge Activities: Specific discharge activities: educating patient, discussing with case resolution specialist/social workers/dc planners, documenting/other paperwork and evaluating patient/reviewing data Coding Level of Care Code Acute Chg DC note Diagnoses Major depressive disorder, recurrent severe without psychotic features F33.2 Suicidal ideation R45.851 Anxiety F41.9 Panic attacks F41.0 Borderline personality disorder F60.3
== END 2023-01-31 15:00 | disposition home or self-care (01) | DRG 885 ==
LOC: ER 13:24 → NP 13:31
PROVIDERS: Physician Assistant; Admitting Provider Psychiatry & Neurology Psychiatry; Emergency Provider Family Medicine; PCP Family Medicine; Visit Provider Psychiatry & Neurology Psychiatry
DX: F33.2 Major depressive disorder, recurrent severe without psychotic features (principal); R45.851 Suicidal ideations; F15.20 Other stimulant dependence, uncomplicated; F41.9 Anxiety disorder, unspecified; F60.3 Borderline personality disorder; J45.909 Unspecified asthma, uncomplicated; M25.462 Effusion, left knee; Z59.00 Homelessness unspecified
CPT/HCPCS: 36415; 73562; 80053; 80306; 80307; 81003; 85025; 97165; 99238; 99285

== ENCOUNTER 2023-01-31 15:12 | Emergency (ER) | payer MEDICARE, MEDICAID, SELFPAY ==
[2023-01-31 15:16] VITALS: BP 132/80; PULSE 90; RESP 16; TEMP 36.9; O2SAT 99; BMI 41.8
--- NOTE | 2023-01-31 15:34 | ED_ITS ---
HPI - Back Pain/Injury General: Chief Complaint: Back Pain/Injury Stated Complaint: low RT back pain/knee pain Time Seen by Provider: 01/31/23 15:29 History of Present Illness: Patient is a 42-year-old female who comes to the ED with back pain. Patient has chronic back pain and has been seen here in the ED multiple times for same complaint January 25, January 14 and December 31. Patient was just [facility] this morning and was asking for pain meds. They were not going to send her home with any pain meds so she said she was going to come straight here to the ED. Denies any reinjury or trauma to the back. Patient has an appointment with pain management clinic in February. Associated symptoms: Deny abdominal pain, chills, dysuria, fatigue, fever(s), hematuria, nausea or vomiting Review of Systems Const: Denies: fever(s), chills or fatigue Eyes: Denies: change in vision or eye discomfort ENMT: Denies: throat pain, odynophagia, nasal discharge or nasal congestion Card: Denies: chest pain, palpitations, edema, swelling of feet/ankles, dyspnea on exertion or orthopnea Resp: Denies: dyspnea, productive cough or non-productive cough GI: Denies: abdominal pain, nausea, vomiting, diarrhea, constipation or moy tochezia : Denies: flank pain, dysuria or hematuria Musc: Reports: back pain; Denies: neck pain or extremity swelling Skin/Breast: Denies: rash or new lesions Neuro: Denies: headache(s), numbness in extremities or weakness in extremities [facility] ED PFSH: Medical History (Updated 02/01/23 @ 00:02 by PURVI Lopez) Abnormal uterine bleeding (AUB) Asthma Benign essential HTN Bilateral primary osteoarthritis of knee DDD (degenerative disc disease) Fatty infiltration of liver Gender dysphoria Hypothyroidism Intervertebral disc disorders with radiculopathy, lumbar region Major depressive disorder, recurrent severe without psychotic features Methamphetamine dependence, episodic Morbid obesity with BMI of 50.0-59.9, adult Nicotine dependence, cigarettes, uncomplicated Opiate abuse, episodic Pyuria Uncontrolled type 2 diabetes mellitus, without long-term current use of insulin Urinary incontinence Surgical History (Updated 01/02/23 @ 11:12 by Jayda Avilez LPN) History of endometrial biopsy (04/13/20) benign endocervical epithelium History of ureter stent Hx of foot surgery S/P laparoscopic appendectomy (04/19/20) Family History (Updated 01/02/23 @ 11:14 by Jayda Avilez LPN) Mother Diabetes Sister Cancer ovarian Other Dementia Heart disease Hypertension Psychiatric illness Denies family history of CAD (coronary artery disease) Clotting disorder Hyperlipidemia Chronic kidney disease (CKD) Anesthesia complication Bleeding disorder Lung disease Stroke Social History (Updated 01/02/23 @ 11:15 by Jayda Avilez LPN) Smoking and tobacco status: current every day smoker cigarettes Packs smoked per day: 0.5 Alcohol intake: current Alcohol intake frequency: few times a month Alcohol type: beer and hard liquor Substance/Drug Use: current Substance/Drug use frequency: few times a month Other substance/drug use details: Occasional marijuana Lives independently: Yes Household members: other Details: partner and her mom Marital status: Single Number of children: 0 Current occupational status: disabled Current gender identity: Male and Other Gender Identity Comment: Goes by Saul, considering formal transition Special hero needs: No Agree to transfusion: Yes Physical Exam Const: COMMON NORMALS: no acute distress, patient oriented x3 and alert HENMT: COMMON NORMALS: normocephalic HEAD & SCALP: normocephalic MOUTH: Normal oral and palatal mucosa present THROAT: posterior oropharynx normal and uvula midline Neck/C-Spine: COMMON NORMALS: supple GENERAL: Yes normal visual inspection Resp: COMMON NORMALS: normal respiratory effort, No retractions, No use of accessory muscles and clear to auscultation bilaterally AUSCULTATION: clear to auscultation bilaterally Cardio: COMMON NORMALS: regular rate, regular rhythm, S1 normal heart sound present, S2 normal heart sound present, No gallops present (Cardio), No clicks present (Cardio), No murmurs present (Cardio) and Peripheral pulses 2+ throughout RATE: regular rate RHYTHM: regular rhythm HEART SOUNDS: S1 normal heart sound present and S2 normal heart sound present PERIPHERAL PULSES: Peripheral pulses 2+ throughout GI: COMMON NORMALS: Normal to inspection, nondistended, normoactive bowel sounds present, Soft to palpation, non-tender and no masses PALPATION: Yes Soft to palpation : COMMON NORMALS: Yes no CVA tenderness BLADDER/KIDNEY EXAM: Yes no CVA tenderness Back/Pelvis: COMMON NORMALS: no CVA tenderness LUMBAR SPINE/LOWER BACK: Yes pain with ROM, No lumbar spinal tenderness and Yes paraspinal muscle tenderness Lumbar paraspinal muscle tenderness: bilateral Extremity: COMMON NORMALS: normal to inspection Neuro: COMMON NORMALS: patient oriented x3 SENSORIUM/ORIENTATION: Yes alert GAIT: Yes Normal gait present Skin: GENERAL SKIN EXAM: dry skin Course Vital Signs: Vital signs: Vital Signs Temperature 98.5 F 01/31/23 15:16 Pulse Rate 90 01/31/23 15:16 Respiratory Rate 16 01/31/23 15:16 Blood Pressure 132/80 01/31/23 15:16 Pulse Oximetry 99 01/31/23 15:16 Oxygen Delivery Me thod Room Air 01/31/23 15:16 MDM - Back Pain/Injury Medical Decision Making Patient is a 42-year-old female who comes to the ED with back pain. Patient has chronic back pain and has been seen here in the ED multiple times for same complaint January 25, January 14 and December 31. Patient was just [facility] this morning and was asking for pain meds. They were not going to send her home with any pain meds so she said she was going to come straight here to the ED. Denies any reinjury or trauma to the back. Patient has an appointment with pain management clinic in February. Vitals are stable. She has some paraspinal muscle tenderness of the lumbar spine rest of exam is benign. She was given a dose of pain meds here in the ED along with a muscle relaxer. She was stable for discharge home and diagnosed with low back pain and discharged home with a prescription for ibuprofen 800 mg and tizanidine. Told to follow-up with PCP within the next week for reevaluation. Return to ED precautions given. Patient understood and agreed with plan. Discharge Plan Discharge Patient Disposition: Home Clinical Impression: Low back pain Qualifiers: Chronicity: acute Back pain laterality: right Sciatica presence: unspecified whether sciatica present Qualified Code(s): M54.50 - Low back pain, unspecified Condition: Stable Prescriptions: New tizanidine 4 mg capsule 4 mg PO Q8H PRN (Reason: muscle spasticity) Qty: 30 0RF ibuprofen 800 mg tablet 800 mg PO Q8H PRN (Reason: pain) Qty: 30 0RF No Action meloxicam 15 mg tablet 15 mg PO DAILY PRN (Reason: pain) Qty: 90 0RF albuterol sulfate 90 mcg/actuation HFA aerosol inhaler 2 puff INHALATION Q6H PRN (Reason: Shortness Of Breath) acetaminophen 500 mg Tablet 1,500 mg PO Q4H PRN (Reason: Pain) cyclobenzaprine 10 mg tablet 10 mg PO BID PRN (Reason: muscle spasm) Qty: 20 0RF celecoxib 100 mg capsule 100 mg PO BID PRN (Reason: pain) Qty: 20 0RF clonazepam 0.5 mg Tablet 0.5 mg PO BID 30 Days Qty: 60 1RF paroxetine HCl 30 mg tablet 30 mg PO DAILY 30 Days Qty: 30 1RF gabapentin 600 mg tablet 1,200 mg PO TID 30 Days Qty: 180 1RF trazodone 150 mg tablet 150 mg PO BEDTIME 30 Days Qty: 30 1RF Singulair 10 mg tablet 10 mg PO DAILY 30 Days Qty: 30 1RF Discharge Orders: Discharge ED (Routine); Ordered 01/31/23 Ordered By: Xander Cabezas Referrals: Willard Ham MD [Primary Care Provider] - Discharge Diet: Regular Discharge Activity: Increase activity as tolerated Activity Restrictions/Additional Instructions: Follow-up with medical provider as directed. Take medications as prescribed. Return to the ER or your medical provider if condition worsens. Please read and understand discharge instructions. Thank you for choosing [facility] for your healthcare needs today. Please realize this is an emergency room and that we are providing you with a medical screening exam and this may not be complete and all inclusive of all the testing and or work up that you may need to determine your ailment or severity of your illness. It is very important that you follow up as instructed or that you return to the Emergency Department should you have concerns or if your condition changes or worsens in any way. Coding Level of Care Code ED Chief Executive Or Managing Director for Milagro Lao
[2023-01-31] MEDS: HYDROcodone-acetaminophen 5-325 mg Tablet 1 TAB PO (15:56)
[2023-01-31] MEDS: ketorolac 60 mg/2 mL INJ IM (15:56)
== END 2023-01-31 16:00 | disposition home or self-care (01) ==
PROVIDERS: Emergency Provider Physician Assistant; PCP Family Medicine
DX: M54.50 Low back pain, unspecified (principal); F17.210 Nicotine dependence, cigarettes, uncomplicated; I10 Essential (primary) hypertension; E11.9 Type 2 diabetes mellitus without complications
CPT/HCPCS: 96372; 99284; J1885

== ENCOUNTER 2023-02-03 14:08 | Emergency (ER) | payer MEDICARE, MEDICAID, SELFPAY ==
[2023-02-03 15:26] VITALS: BP 120/86; PULSE 71; RESP 14; TEMP 36.2; O2SAT 98; BMI 41.8
--- NOTE | 2023-02-03 17:19 | ED_ITS ---
HPI - Back Pain/Injury General: Chief Complaint: Back Pain/Injury Stated Complaint: Lower back pain and knee pain Time Seen by Provider: 02/03/23 17:19 History of Present Illness: 42-year-old female patient comes in with low back pain and bilateral knee pain. Patient has bilateral severe osteoarthritis to both knees tricompartmental syndrome. Patient also has significant degenerative disc disease and arthritic changes of the spine in the thoracic and lumbar area. Patient denies any fever or chills. Patient is scheduled to follow-up with pain doggy daycare activities director at 18 February. Patient has NSAIDs and muscle relaxers at home but continues to have breakthrough pain. Patient has a history of depression and has recently been discharged from the [facility] for increased anxiety and exacerbation of major depressive disorder. Review of Systems General: Reports: 10 or more systems reviewed and unremarkable except in HPI and below Musc: Reports: back pain and joint pain (Bilateral knee) [facility] ED PFSH: Medical History (Updated 02/03/23 @ 19:06 by SUSAN Chou) Abnormal uterine bleeding (AUB) Asthma Benign essential HTN Bilateral primary osteoarthritis of knee DDD (degenerative disc disease) Fatty infiltration of liver Gender dysphoria Hypothyroidism Intervertebral disc disorders with radiculopathy, lumbar region Major depressive disorder, recurrent severe without psychotic features Methamphetamine dependence, episodic Morbid obesity with BMI of 50.0-59.9, adult Nicotine dependence, cigarettes, uncomplicated Opiate abuse, episodic Pyuria Uncontrolled type 2 diabetes mellitus, without long-term current use of insulin Urinary incontinence Surgical History (Updated 01/02/23 @ 11:12 by Jayda Avilez LPN) History of endometrial biopsy (04/13/20) benign endocervical epithelium History of ureter stent Hx of foot surgery S/P laparoscopic appendectomy (04/19/20) Family History (Updated 01/02/23 @ 11:14 by Jayda Avilez LPN) Mother Diabetes Sister Cancer ovarian Other Dementia Heart disease Hypertension Psychiatric illness Denies family history of CAD (coronary artery disease) Clotting disorder Hyperlipidemia Chronic kidney disease (CKD) Anesthesia complication Bleeding disorder Lung disease Stroke Social History (Updated 01/02/23 @ 11:15 by Jayda Avilez LPN) Smoking and tobacco status: current every day smoker cigarettes Packs smoked per day: 0.5 Alcohol intake: current Alcohol intake frequency: few times a month Alcohol type: beer and hard liquor Substance/Drug Use: current Substance/Drug use frequency: few times a month Other substance/drug use details: Occasional marijuana Lives independently: Yes Household members: other Details: partner and her mom Marital status: Single Number of children: 0 Current occupational status: disabled Current gender identity: Male and Other Gender Identity Comment: Goes by Saul, considering formal transition Special hero needs: No Agree to transfusion: Yes Physical Exam Const: COMMON NORMALS: alert HENMT: COMMON NORMALS: normocephalic HEAD & SCALP: normocephalic Neck/C-Spine: COMMON NORMALS: full ROM Resp: COMMON NORMALS: normal respiratory effort Cardio: COMMON NORMALS: regular rate RATE: regular rate Back/Pelvis: THORACIC SPINE/UPPER BACK: Yes paraspinal muscle tenderness LUMBAR SPINE/LOWER BACK: Yes paraspinal muscle tenderness Extremity: NARRATIVE EXTREMITY EXAM: Bilateral knee crepitus Neuro: SENSORIUM/ORIENTATION: Yes alert Skin: COMMON NORMALS: turgor normal GENERAL SKIN EXAM: turgor normal Course Vital Signs: Vital signs: Vital Signs Temperature 97.2 F L 02/03/23 15:26 Pulse Rate 71 02/03/23 15:26 Respiratory Rate 18 02/03/23 17:46 Blood Pressure 120/86 02/03/23 15:26 Pulse Oximetry 98 02/03/23 15:26 Oxygen Delivery Me thod Room Air 02/03/23 15:26 MDM - Back Pain/Injury Medical Decision Making Patient comes in for exacerbation of back and knee pain. On exam patient has crepitus in bilateral knees with minimal swelling and no redness. Patient has muscle tenderness of the lumbar and thoracic spine. Differential diagnosis includes but not limited to UTI, chronic kidney disease, overuse of NSAIDs, degenerative disc disease, osteoarthritis, intervertebral disc disease, facet arthritis. Laboratory values were unremarkable. Kidney function was normal. Urine was negative for urinary tract infection. Reviewed exam with patient with recommendations for treatment and follow-up. Patient reported understanding agreed to plan. Labs 02/03/23 18:02 02/03/23 18:02 Laboratory Results WBC 6.9 10^3/uL (4.0-10.0) 02/03/23 18:02 RBC 4.75 10^6/uL (4.1-5.3) 02/03/23 18:02 Hgb 12.8 g/dL (11.5-15.3) 02/03/23 18:02 Hct 40.5 % (37.0-47.0) 02/03/23 18:02 MCV 85.3 fl (81-99) 02/03/23 18:02 MCH 26.9 pg (28.0-34.0) L 02/03/23 18:02 MCHC 31.6 g/dL (30.0-36.0) 02/03/23 18:02 RDW 16.1 % (12.1-15.1) H 02/03/23 18:02 Plt Count 275 10^3/cmm (130-400) 02/03/23 18:02 MPV 9.9 fL (7.4-10.4) 02/03/23 18:02 Neut % (Auto) 77.2 % 02/03/23 18:02 Lymph % (Auto) 17.2 % 02/03/23 18:02 [place] % (Auto) 4.2 % 02/03/23 18:02 Eos % (Auto) 1.0 % 02/03/23 18:02 Baso % (Auto) 0.1 % 02/03/23 18:02 Neut # (Auto) 5.29 10^3/uL (1.8-7.7) 02/03/23 18:02 Lymph # (Auto) 1.2 10^3/uL (0.8-4.8) 02/03/23 18:02 [place] # (Auto) 0.3 10^3/uL (0.2-0.9) 02/03/23 18:02 Eos # (Auto) 0.1 10^3/uL (0.0-0.8) 02/03/23 18:02 Baso # (Auto) 0.0 10^3/uL (0.0-0.1) 02/03/23 18:02 Nucleated RBC % (auto) 0 % 02/03/23 18:02 Nucleated RBCs # 0.0 /100WBC 02/03/23 18:02 Sodium 133 mmol/L (136-145) L 02/03/23 18:02 Potassium 4.2 mmol/L (3.5-5.1) 02/03/23 18:02 Chloride 98 mmol/L (98-107) 02/03/23 18:02 Carbon Dioxide 26 mmol/L (22-29) 02/03/23 18:02 Anion Gap 13.2 (5-19) 02/03/23 18:02 BUN 16 mg/dL (6-20) 02/03/23 18:02 Creatinine 0.9 mg/dL (0.5-0.9) 02/03/23 18:02 GFR Calculation 69.0 mL/min (90-130) L 02/03/23 18:02 Glucose 148 mg/dL (65-115) H 02/03/23 18:02 Calculated Osmolality 280 mOsm/kg (285-295) L 02/03/23 18:02 Calcium 8.6 mg/dL (8.5-10.5) 02/03/23 18:02 Total Bilirubin 0.2 mg/dL (0.15-1.2) 02/03/23 18:02 AST 24 U/L (0-32) 02/03/23 18:02 ALT 26 U/L (0-33) 02/03/23 18:02 Alkaline Phosphatase 75 U/L (35-105) 02/03/23 18:02 Total Protein 7.0 g/dL (6.6-8.7) 02/03/23 18:02 Albumin 3.7 g/dL (3.5-5.2) 02/03/23 18:02 Globulin 3.3 g/dL (1.3-4.6) 02/03/23 18:02 Urine Color Straw (Yellow) 02/03/23 18:36 Urine Appearance Clear (CLEAR) 02/03/23 18:36 Urine pH 7 (5-7) 02/03/23 18:36 Ur Specific [place] 1.005 (1.005-1.030) 02/03/23 18:36 Urine Protein Neg (Negative) 02/03/23 18:36 Urine Glucose (UA) Norm (Normal) 02/03/23 18:36 Urine Ketones Negative (Negative) 02/03/23 18:36 Urine Blood Neg (Negative) 02/03/23 18:36 Urine Nitrate Negative (Negative) 02/03/23 18:36 Urine Bilirubin Neg (Negative) 02/03/23 18:36 Urine Urobilinogen Norm mg/dL (Negative) 02/03/23 18:36 Ur Leukocyte Esterase Negative (Negative) 02/03/23 18:36 Discharge Plan Discharge Patient Disposition: Home Clinical Impression: Bilateral primary osteoarthritis of knee DDD (degenerative disc disease) Qualifiers: Spinal region: thoracolumbar Qualified Code(s): M51.35 - Other intervertebral disc degeneration, thoracolumbar region Condition: Stable Prescriptions: New hydrocodone-acetaminophen 7.5-325 mg tablet 1 tab PO BID PRN (Reason: pain (scale score 7-10)) Qty: 10 0RF No Action meloxicam 15 mg tablet 15 mg PO DAILY PRN (Reason: pain) Qty: 90 0RF albuterol sulfate 90 mcg/actuation HFA aerosol inhaler 2 puff INHALATION Q6H PRN (Reason: Shortness Of Breath) tizanidine 4 mg capsule 4 mg PO Q8H PRN (Reason: muscle spasticity) Qty: 30 0RF ibuprofen 800 mg tablet 800 mg PO Q8H PRN (Reason: pain) Qty: 30 0RF acetaminophen 500 mg Tablet 1,500 mg PO Q4H PRN (Reason: Pain) cyclobenzaprine 10 mg tablet 10 mg PO BID PRN (Reason: muscle spasm) Qty: 20 0RF celecoxib 100 mg capsule 100 mg PO BID PRN (Reason: pain) Qty: 20 0RF clonazepam 0.5 mg Tablet 0.5 mg PO BID 30 Days Qty: 60 1RF paroxetine HCl 30 mg tablet 30 mg PO DAILY 30 Days Qty: 30 1RF gabapentin 600 mg tablet 1,200 mg PO TID 30 Days Qty: 180 1RF trazodone 150 mg tablet 150 mg PO BEDTIME 30 Days Qty: 30 1RF Singulair 10 mg tablet 10 mg PO DAILY 30 Days Qty: 30 1RF Discharge Orders: Discharge ED (Routine); Ordered 02/03/23 Ordered By: Sukhi Vigil Referrals: Willard Ham MD [Primary Care Provider] - Discharge Diet: Usual diet Discharge Activity: Increase activity as tolerated Patient Instructions: Opioid Safety, Pain Management Activity Restrictions/Additional Instructions: Continue with routine medications for pain. Use hydrocodone for breakthrough pain. Follow-up with primary care for further evaluation and management of pain. Return to ER for new concerns. Coding Level of Care Code ED Fish Drier for Milagro Lao
[2023-02-03 17:46] VITALS: RESP 18
[2023-02-03] MEDS: morphine 4 mg/mL SDV 1 mL IM ×2 (17:46→19:20)
[2023-02-03] MEDS: dexamethasone 10 mg/mL INJ IM (17:47)
[2023-02-03 18:22] LABS: Basophils % 0.1 %; Eosinophils # 0.1 10^3/uL (0.0-0.8); Hematocrit 40.5 % (37.0-47.0); Hemoglobin 12.8 g/dL (11.5-15.3); Lymphocytes # 1.2 10^3/uL (0.8-4.8); Lymphocytes % 17.2 %; Mean Corpuscular HGB Conc 31.6 g/dL (30.0-36.0); Mean Corpuscular Hemoglobin 26.9 pg (28.0-34.0); Mean Corpuscular Volume 85.3 fl (81-99); Mean Platelet Volume 9.9 fL (7.4-10.4); Monocytes # 0.3 10^3/uL (0.2-0.9); Monocytes % 4.2 %; Neutrophils # 5.29 10^3/uL (1.8-7.7); Neutrophils % 77.2 %; Nucleated Red Blood Cells % 0 %; Platelet Count 275 10^3/cmm (130-400); Red Blood Count 4.75 10^6/uL (4.1-5.3); Red Cell Distribution Width 16.1 % (12.1-15.1); White Blood Count 6.9 10^3/uL (4.0-10.0)
[2023-02-03 18:39] LABS: Alanine Aminotransferase 26 U/L (0-33); Albumin Level 3.7 g/dL (3.5-5.2); Alkaline Phosphatase 75 U/L (35-105); Anion Gap 13.2 (5-19); Aspartate Amino Transferase 24 U/L (0-32); Blood Urea Nitrogen 16 mg/dL (6-20); Calcium 8.6 mg/dL (8.5-10.5); Carbon Dioxide 26 mmol/L (22-29); Chloride 98 mmol/L (98-107); Globulin 3.3 g/dL (1.3-4.6); Glucose 148 mg/dL (65-115); Osmolality Calculated 280 mOsm/kg (285-295); Potassium 4.2 mmol/L (3.5-5.1); Sodium 133 mmol/L (136-145); Total Bilirubin 0.2 mg/dL (0.15-1.2)
[2023-02-03 18:47] LABS: Add Urine Microscopic? NO; Charge for UA Resulting for Rev
[2023-02-03 18:59] LABS: Bilirubin Urine Neg (Negative); Blood Urine Neg (Negative); Glucose Urine UA Norm (Normal); Ketones Urine Negative (Negative); Leukocyte Esterase Urine Negative (Negative); Nitrate Urine Negative (Negative); Protein Urine Neg (Negative); Specific Gravity, Urine 1.005 (1.005-1.030); Urine Appearance Clear (CLEAR); Urine Color Straw (Yellow); Urobilinogen Urine Norm (Negative); pH Urine 7 (5-7)
[2023-02-03 19:20] VITALS: RESP 17
--- NOTE | 2023-02-03 19:23 | PC.NURSE ---
PT IS RECIEVING A NORCO TO GO HOME WITH DUE OT NOT BEING ABLE TO GO TO PHARMACY UNTIL TOMORROW AFTERNOON.
--- NOTE | 2023-02-04 10:11 | DCPLANNER ---
fundraising manager had message to see if patients appointment with pain management could be moved to an earlier date. fundraising manager called patient to discuss this, unable to speak with patient at this time, a voicemail was left for patient to return shelter case manager phone call.
== END 2023-02-03 19:38 | disposition home or self-care (01) ==
PROVIDERS: Emergency Provider Nurse Practitioner Family; PCP Family Medicine
DX: M51.35 Other intervertebral disc degeneration, thoracolumbar region (principal); M17.0 Bilateral primary osteoarthritis of knee; F17.210 Nicotine dependence, cigarettes, uncomplicated; I10 Essential (primary) hypertension; E11.9 Type 2 diabetes mellitus without complications
CPT/HCPCS: 80053; 81003; 85025; 96372; 99284; J1100; J2270

== ENCOUNTER 2023-02-10 12:13 | Emergency (ER) | payer MEDICARE, MEDICAID, SELFPAY ==
[2023-02-10 12:16] VITALS: BP 172/101; PULSE 71; RESP 18; TEMP 36.8; O2SAT 97; BMI 41.8
--- NOTE | 2023-02-10 12:28 | W.ED.DIZZY ---
HPI - Dizziness General: Chief Complaint: Dizziness Stated Complaint: back and knee pain Time Seen by Provider: 02/10/23 12:19 History of Present Illness: HPI Narrative: Patient is a 45-year-old female that comes to the ED via EMS with nausea and dizziness. Patient says for the past couple days she is felt dizzy and nauseous. Patient states she has chronic knee and back pain. Denies any abdominal pain, vomiting, chest pain or fevers. Patient endorses some constipation. Associated symptoms: Reports nausea; Denies chest pain, chills, headache(s), nasal congestion, palpitations or vomiting Associated neuro symptoms: Deny numbness in extremities Review of Systems Const: Denies: fever(s), chills or fatigue Eyes: Denies: change in vision or eye discomfort ENMT: Denies: throat pain, odynophagia, nasal discharge or nasal congestion Card: Denies: chest pain, palpitations, edema, swelling of feet/ankles, dyspnea on exertion or orthopnea Resp: Denies: dyspnea, productive cough or non-productive cough GI: Reports: nausea; Denies: abdominal pain, vomiting, diarrhea, constipation or hematochezia : Denies: flank pain, dysuria or hematuria Musc: Reports: back pain (Chronic low back pain) and extremity pain (Chronic knee pain); Denies: neck pain or extremity swelling Skin/Breast: Denies: rash or new lesions Neuro: Reports: dizziness; Denies: headache(s), numbness in extremities or weakness in extremities PFS ED PFSH: Medical History (Updated 02/10/23 @ 15:12 by JONO Gómez) Abnormal uterine bleeding (AUB) Asthma Benign essential HTN Bilateral primary osteoarthritis of knee DDD (degenerative disc disease) Fatty infiltration of liver Gender dysphoria Hypothyroidism Intervertebral disc disorders with radiculopathy, lumbar region Major depressive disorder, recurrent severe without psychotic features Methamphetamine dependence, episodic Morbid obesity with BMI of 50.0-59.9, adult Nicotine dependence, cigarettes, uncomplicated Opiate abuse, episodic Pyuria Uncontrolled type 2 diabetes mellitus, without long-term current use of insulin Urinary incontinence Surgical History (Updated 01/02/23 @ 11:12 by Jayda Avilez LPN) History of endometrial biopsy (04/13/20) benign endocervical epithelium History of ureter stent Hx of foot surgery S/P laparoscopic appendectomy (04/19/20) Family History (Updated 01/02/23 @ 11:14 by Jayda Avilez LPN) Mother Diabetes Sister Cancer ovarian Other Dementia Heart disease Hypertension Psychiatric illness Denies family history of CAD (coronary artery disease) Clotting disorder Hyperlipidemia Chronic kidney disease (CKD) Anesthesia complication Bleeding disorder Lung disease Stroke Social History (Updated 01/02/23 @ 11:15 by Jayda Avilez LPN) Smoking and tobacco status: current every day smoker cigarettes Packs smoked per day: 0.5 Alcohol intake: current Alcohol intake frequency: few times a month Alcohol type: beer and hard liquor Substance/Drug Use: current Substance/Drug use frequency: few times a month Other substance/drug use details: Occasional marijuana Lives independently: Yes Household members: other Details: partner and her mom Marital status: Single Number of children: 0 Current occupational status: disabled Current gender identity: Male and Other Gender Identity Comment: Goes by Sual, considering formal transition Special hero needs: No Agree to transfusion: Yes Physical Exam Const: COMMON NORMALS: no acute distress, patient oriented x3 and alert HENMT: COMMON NORMALS: normocephalic HEAD & SCALP: normocephalic MOUTH: Normal oral and palatal mucosa present THROAT: posterior oropharynx normal and uvula midline Neck/C-Spine: COMMON NORMALS: supple GENERAL: Yes normal visual inspection Resp: COMMON NORMALS: normal respiratory effort, No retractions, No use of accessory muscles and clear to auscultation bilaterally AUSCULTATION: clear to auscultation bilaterally Cardio: COMMON NORMALS: regular rate, regular rhythm, S1 normal heart sound present, S2 normal heart sound present, No gallops present (Cardio), No clicks present (Cardio), No murmurs present (Cardio) and Peripheral pulses 2+ throughout RATE: regular rate RHYTHM: regular rhythm HEART SOUNDS: S1 normal heart sound present and S2 normal heart sound present PERIPHERAL PULSES: Peripheral pulses 2+ throughout GI: COMMON NORMALS: Normal to inspection, nondistended, normoactive bowel sounds present, Soft to palpation, non-tender and no masses PALPATION: Yes Soft to palpation : COMMON NORMALS: Yes no CVA tenderness BLADDER/KIDNEY EXAM: Yes no CVA tenderness Back/Pelvis: COMMON NORMALS: no CVA tenderness LUMBAR SPINE/LOWER BACK: Yes paraspinal muscle tenderness Lumbar paraspinal muscle tenderness: bilateral Extremity: COMMON NORMALS: normal to inspection Neuro: COMMON NORMALS: patient oriented x3 SENSORIUM/ORIENTATION: Yes alert GAIT: Yes Normal gait present Skin: GENERAL SKIN EXAM: dry skin Course Vital Signs: Vital signs: Vital Signs Temperature 98.2 F 02/10/23 12:16 Pulse Rate 71 02/10/23 12:16 Respiratory Rate 16 02/10/23 15:41 Blood Pressure 172/101 02/10/23 12:16 Pulse Oximetry 98 02/10/23 15:41 Oxygen Delivery Me thod Room Air 02/10/23 12:16 MDM - Dizziness Medical Decision Making Patient is a 45-year-old female that comes to the ED via EMS with nausea and dizziness. Patient says for the past couple days she is felt dizzy and nauseous. Patient states she has chronic knee and back pain. Denies any abdominal pain, vomiting, chest pain or fevers. Patient endorses some constipation. Vitals are stable. Patient appears nontoxic in no acute distress or pain. Rest of exam is benign. CBC, CMP are unremarkable. EKG showed normal sinus rhythm with no ST segment ovation or depression seen. UA was unremarkable. Patient was given a dose of pain meds and nausea meds and her symptoms improved. She was able to keep p.o. fluids down here in the ED. Patient diagnosed with nausea chronic back pain and chronic knee pain. Told to follow-up with her PCP and pain management at her next scheduled appointment. She was sent home with a prescription for couple days of pain med muscle relaxer and nausea medication. Patient understood and agreed with plan. Lab Data I reviewed the patient's lab results. 02/10/23 13:50 02/10/23 13:50 Laboratory Results WBC 6.0 10^3/uL (4.0-10.0) 02/10/23 13:50 RBC 4.67 10^6/uL (4.1-5.3) 02/10/23 13:50 Hgb 12.6 g/dL (11.5-15.3) 02/10/23 13:50 Hct 40.0 % (37.0-47.0) 02/10/23 13:50 MCV 85.7 fl (81-99) 02/10/23 13:50 MCH 27.0 pg (28.0-34.0) L 02/10/23 13:50 MCHC 31.5 g/dL (30.0-36.0) 02/10/23 13:50 RDW 16.1 % (12.1-15.1) H 02/10/23 13:50 Plt Count 254 10^3/cmm (130-400) 02/10/23 13:50 MPV 9.8 fL (7.4-10.4) 02/10/23 13:50 Neut % (Auto) 73.3 % 02/10/23 13:50 Lymph % (Auto) 20.1 % 02/10/23 13:50 [place] % (Auto) 5.0 % 02/10/23 13:50 Eos % (Auto) 1.0 % 02/10/23 13:50 Baso % (Auto) 0.3 % 02/10/23 13:50 Neut # (Auto) 4.37 10^3/uL (1.8-7.7) 02/10/23 13:50 Lymph # (Auto) 1.2 10^3/uL (0.8-4.8) 02/10/23 13:50 [place] # (Auto) 0.3 10^3/uL (0.2-0.9) 02/10/23 13:50 Eos # (Auto) 0.1 10^3/uL (0.0-0.8) 02/10/23 13:50 Baso # (Auto) 0.0 10^3/uL (0.0-0.1) 02/10/23 13:50 Nucleated RBC % (auto) 0 % 02/10/23 13:50 Nucleated RBCs # 0.0 /100WBC 02/10/23 13:50 Sodium 130 mmol/L (136-145) L 02/10/23 13:50 Potassium 3.9 mmol/L (3.5-5.1) 02/10/23 13:50 Chloride 95 mmol/L (98-107) L 02/10/23 13:50 Carbon Dioxide 28 mmol/L (22-29) 02/10/23 13:50 Anion Gap 10.9 (5-19) 02/10/23 13:50 BUN 19 mg/dL (6-20) 02/10/23 13:50 Creatinine 0.9 mg/dL (0.5-0.9) 02/10/23 13:50 GFR Calculation 69.0 mL/min (90-130) L 02/10/23 13:50 Glucose 85 mg/dL (65-115) 02/10/23 13:50 Calculated Osmolality 272 mOsm/kg (285-295) L 02/10/23 13:50 Calcium 8.9 mg/dL (8.5-10.5) 02/10/23 13:50 Total Bilirubin 0.7 mg/dL (0.15-1.2) 02/10/23 13:50 AST 13 U/L (0-32) 02/10/23 13:50 ALT 11 U/L (0-33) 02/10/23 13:50 Alkaline Phosphatase 77 U/L (35-105) 02/10/23 13:50 Total Protein 7.3 g/dL (6.6-8.7) 02/10/23 13:50 Albumin 3.9 g/dL (3.5-5.2) 02/10/23 13:50 Globulin 3.4 g/dL (1.3-4.6) 02/10/23 13:50 Lipase 16 U/L (13-60) 02/10/23 13:50 Urine Color Yellow (Yellow) 02/10/23 14:42 Urine Appearance Sl hazy (CLEAR) A 02/10/23 14:42 Urine pH 6 (5-7) 02/10/23 14:42 Ur Specific [place] 1.010 (1.005-1.030) 02/10/23 14:42 Urine Protein Neg (Negative) 02/10/23 14:42 Urine Glucose (UA) Norm (Normal) 02/10/23 14:42 Urine Ketones Negative (Negative) 02/10/23 14:42 Urine Blood Neg (Negative) 02/10/23 14:42 Urine Nitrate Negative (Negative) 02/10/23 14:42 Urine Bilirubin Neg (Negative) 02/10/23 14:42 Urine Urobilinogen Norm mg/dL (Negative) 02/10/23 14:42 Ur Leukocyte Esterase Negative (Negative) 02/10/23 14:42 Urine RBC 0-4 /hpf (0-2) H 02/10/23 14:42 Urine WBC 0-4 /hpf (0-5) H 02/10/23 14:42 Ur Squamous Epith Cells 5-10 /hpf (0-5) H 02/10/23 14:42 Amorphous Sediment Not Reportable 02/10/23 14:42 Urine Bacteria Trace /hpf (NONE) 02/10/23 14:42 EKG Data EKG 1: EKG interpretation date: 02/10/23 Interpretation: Normal sinus rhythm, 60 bpm, no ST segment elevation or depression seen. Discharge Plan Discharge Patient Disposition: Home Clinical Impression: Nausea Back pain Qualifiers: Back pain location: low back pain Chronicity: chronic Back pain laterality: bilateral Sciatica presence: without sciatica Qualified Code(s): M54.50 - Low back pain, unspecified Chronic knee pain Qualifiers: Laterality: unspecified laterality Qualified Code(s): M25.569 - Pain in unspecified knee Condition: Stable Prescriptions: New tizanidine 4 mg capsule 4 mg PO Q8H PRN (Reason: muscle spasticity) Qty: 15 0RF ondansetron 4 mg tablet,disintegrating 4 mg PO Q8H PRN (Reason: nausea and vomiting) Qty: 12 0RF No Action meloxicam 15 mg tablet 15 mg PO DAILY PRN (Reason: pain) Qty: 90 0RF albuterol sulfate 90 mcg/actuation HFA aerosol inhaler 1 - 2 puff INHALATION Q4H PRN (Reason: Shortness Of Breath) ibuprofen 800 mg tablet 800 mg PO Q8H PRN (Reason: pain) Qty: 30 0RF acetaminophen 500 mg Tablet 1,500 mg PO Q6H PRN (Reason: Pain) clonazepam 0.5 mg Tablet 0.5 mg PO BID 30 Days Qty: 60 1RF gabapentin 600 mg tablet 1,200 mg PO TID 30 Days Qty: 180 1RF trazodone 150 mg tablet 150 mg PO BEDTIME 30 Days Qty: 30 1RF hydrocodone-acetaminophen 7.5-325 mg tablet 1 tab PO BID PRN (Reason: pain (scale score 7-10)) Qty: 10 0RF tizanidine 4 mg tablet 4 mg PO Q8H PRN (Reason: Pain) paroxetine HCl 30 mg tablet 30 mg PO BEDTIME Singulair 10 mg tablet 10 mg PO BEDTIME Discharge Orders: Discharge ED (Routine); Ordered 02/10/23 Ordered By: Xander Cabezas Referrals: Vaisler,Willard, MD [Primary Care Provider] - Discharge Diet: Regular Discharge Activity: Increase activity as tolerated Activity Restrictions/Additional Instructions: Follow-up with medical provider as directed. Take medications as prescribed. Return to the ER or your medical provider if condition worsens. Please read and understand discharge instructions. Thank you for choosing [facility] for your healthcare needs today. Please realize this is an emergency room and that we are providing you with a medical screening exam and this may not be complete and all inclusive of all the testing and or work up that you may need to determine your ailment or severity of your illness. It is very important that you follow up as instructed or that you return to the Emergency Department should you have concerns or if your condition changes or worsens in any way. Coding Level of Care Code ED Certified Nurse Operating Room for Milagro Lao
--- NOTE | 2023-02-10 12:44 | ECG_ITS ---
[facility] Test Date: 2023-02-10 Pat Name: Lorie Chacon Department: Room: Gender: Female Alteration Hand: : 1980 Requested By: Xander Cabezas Order Number: [id number] Farley MD: Arlet Briceno M.D. Measurements Intervals [place] Rate: 68 P: 52 MD: 197 QRS: 58 QRSD: 97 T: 46 QT: 373 QTc: 399 Interpretive Statements SINUS RHYTHM Compared to ECG 10/11/2021 06:53:00 Sinus arrhythmia no longer present Electronically Signed On 02-10-2023 21:06:06 CDT by Arlet Briceno M.D. [id number]
[2023-02-10 12:54] VITALS: RESP 17
[2023-02-10] MEDS: morphine 4 mg/mL SDV 1 mL IM (12:54)
[2023-02-10] MEDS: ondansetron 2 mg/ML SDV 2 mL 4 MG IM (13:11)
[2023-02-10 14:00] LABS: Basophils % 0.3 %; Eosinophils # 0.1 10^3/uL (0.0-0.8); Hemoglobin 12.6 g/dL (11.5-15.3); Lymphocytes # 1.2 10^3/uL (0.8-4.8); Lymphocytes % 20.1 %; Mean Corpuscular HGB Conc 31.5 g/dL (30.0-36.0); Mean Corpuscular Volume 85.7 fl (81-99); Mean Platelet Volume 9.8 fL (7.4-10.4); Monocytes # 0.3 10^3/uL (0.2-0.9); Neutrophils # 4.37 10^3/uL (1.8-7.7); Neutrophils % 73.3 %; Nucleated Red Blood Cells % 0 %; Platelet Count 254 10^3/cmm (130-400); Red Blood Count 4.67 10^6/uL (4.1-5.3); Red Cell Distribution Width 16.1 % (12.1-15.1)
[2023-02-10 14:16] LABS: Alanine Aminotransferase 11 U/L (0-33); Albumin Level 3.9 g/dL (3.5-5.2); Alkaline Phosphatase 77 U/L (35-105); Aspartate Amino Transferase 13 U/L (0-32); Blood Urea Nitrogen 19 mg/dL (6-20); Calcium 8.9 mg/dL (8.5-10.5); Carbon Dioxide 28 mmol/L (22-29); Chloride 95 mmol/L (98-107); Globulin 3.4 g/dL (1.3-4.6); Glucose 85 mg/dL (65-115); Lipase 16 U/L (13-60); Osmolality Calculated 272 mOsm/kg (285-295); Sodium 130 mmol/L (136-145); Total Bilirubin 0.7 mg/dL (0.15-1.2); Total Protein 7.3 g/dL (6.6-8.7)
[2023-02-10 14:21] LABS: Anion Gap 10.9 (5-19); Potassium 3.9 mmol/L (3.5-5.1)
[2023-02-10] MEDS: HYDROcodone-acetaminophen 7.5-325 mg Tablet 1 TAB PO (14:56)
[2023-02-10 15:22] LABS: Add Urine Microscopic? YES; Bacteria Urine TRACE /hpf; Bilirubin Urine Neg (Negative); Blood Urine Neg (Negative); Glucose Urine UA Norm (Normal); Ketones Urine Negative (Negative); Leukocyte Esterase Urine Negative (Negative); Nitrate Urine Negative (Negative); Protein Urine Neg (Negative); RBC Urine 0-4 /hpf (0-2); Urine Appearance SL Hazy (CLEAR); Urine Color Yellow (Yellow); Urobilinogen Urine Norm (Negative); WBC Urine 0-4 /hpf (0-5); pH Urine 6 (5-7)
[2023-02-10 15:23] LABS: Add Urine Culture? No
[2023-02-10 15:41] VITALS: RESP 16; O2SAT 98
== END 2023-02-10 15:41 | disposition home or self-care (01) ==
PROVIDERS: Emergency Provider Physician Assistant; PCP Family Medicine
DX: R11.0 Nausea (principal); G89.29 Other chronic pain; M54.50 Low back pain, unspecified; M25.569 Pain in unspecified knee; F17.210 Nicotine dependence, cigarettes, uncomplicated; I10 Essential (primary) hypertension; E11.9 Type 2 diabetes mellitus without complications
CPT/HCPCS: 36415; 80053; 81001; 83690; 85025; 93005; 96372; 99284; J2270; J2405

== ENCOUNTER 2023-02-21 02:14 | Emergency (ER) | payer MEDICARE, MEDICAID, SELFPAY ==
[2023-02-21 02:18] VITALS: BP 161/107; PULSE 91; RESP 18; TEMP 36.6; O2SAT 95; BMI 41.8
--- NOTE | 2023-02-21 02:23 | ED_ITS ---
HPI - Alcohol General: Chief Complaint: Alcohol Stated Complaint: ETOH Time Seen by Provider: 02/21/23 02:23 Source: EMS Mode of arrival: EMS Limitations: no limitations History of Present Illness: 42-year-old female is here from homeless snf has been drinking heavily tonight. Patient is under the influence of alcohol she is quite intoxicated she is able answer my questions she has no medical complaints at this time she having difficulty walking due to her intoxication level. Associated symptoms: Deny abdominal pain, depression, nausea or vomiting Review of Systems Const: Denies: fever(s), chills, body aches or change in appetite ENMT: Denies: throat pain or dental pain Card: Denies: chest pain Resp: Denies: dyspnea GI: Denies: abdominal pain, nausea, vomiting or diarrhea : Denies: dysuria Musc: Denies: neck pain or back pain Skin/Breast: Denies: rash Neuro: Denies: headache(s) Psych: Denies: depression PFSH ED PFSH: Medical History Abnormal uterine bleeding (AUB) Asthma Benign essential HTN Bilateral primary osteoarthritis of knee DDD (degenerative disc disease) Fatty infiltration of liver Gender dysphoria Hypothyroidism Intervertebral disc disorders with radiculopathy, lumbar region Major depressive disorder, recurrent severe without psychotic features Methamphetamine dependence, episodic Morbid obesity with BMI of 50.0-59.9, adult Nicotine dependence, cigarettes, uncomplicated Opiate abuse, episodic Psychiatric care Pyuria Uncontrolled type 2 diabetes mellitus, without long-term current use of insulin Urinary incontinence Surgical History History of endometrial biopsy (04/13/20) benign endocervical epithelium History of ureter stent Hx of foot surgery S/P laparoscopic appendectomy (04/19/20) Family History (Updated 01/02/23 @ 11:14 by Jayda Avilez LPN) Mother Diabetes Sister Cancer ovarian Other Dementia Heart disease Hypertension Psychiatric illness Denies family history of CAD (coronary artery disease) Clotting disorder Hyperlipidemia Chronic kidney disease (CKD) Anesthesia complication Bleeding disorder Lung disease Stroke Social History Smoking and tobacco status: current every day smoker cigarettes Packs smoked per day: 0.5 Alcohol intake: current Alcohol intake frequency: few times a month Alcohol type: beer and hard liquor Substance/Drug Use: current Substance/Drug use frequency: few times a month Other substance/drug use details: Occasional marijuana Lives independently: Yes Household members: other Details: partner and her mom Marital status: Single Number of children: 0 Current occupational status: disabled Current gender identity: Male and Other Gender Identity Comment: Goes by Saul, considering formal transition Special hero needs: No Agree to transfusion: Yes Physical Exam Const: COMMON NORMALS: patient oriented x3 GENERAL APPEARANCE: odor of alcohol detected HENMT: COMMON NORMALS: normocephalic and atraumatic HEAD & SCALP: normocephalic and atraumatic Eye: COMMON NORMALS: Equal, round and reactive pupils present and EOMs intact bilaterally PUPIL: Yes Equal, round and reactive pupils present Neck/C-Spine: COMMON NORMALS: full ROM and supple Chest: COMMONS NORMALS: normal inspection of the chest and normal palpation of entire chest wall Resp: COMMON NORMALS: normal respiratory effort, No retractions, No use of accessory muscles and clear to auscultation bilaterally AUSCULTATION: clear to auscultation bilaterally Cardio: COMMON NORMALS: regular rate, regular rhythm and No murmurs present (Cardio) RATE: regular rate RHYTHM: regular rhythm GI: COMMON NORMALS: Normal to inspection, nondistended, normoactive bowel s ounds present, Soft to palpation, non-tender and no masses PALPATION: Yes Soft to palpation Extremity: COMMON NORMALS: normal to inspection and full ROM Neuro: COMMON NORMALS: patient oriented x3, moves all extremities and no focal motor deficits Psych: COMMON NORMALS: mental status grossly normal, Normal thought process present and cooperative THOUGHT PROCESS: Normal thought process present Skin: COMMON NORMALS: no rashes or lesions noted and no wounds GENERAL SKIN EXAM: no rashes or lesions noted Course Vital Signs: Vital signs: Vital Signs Temperature 97.9 F 02/21/23 02:18 Pulse Rate 91 02/21/23 02:18 Respiratory Rate 18 02/21/23 02:18 Blood Pressure 161/107 02/21/23 02:18 Pulse Oximetry 95 02/21/23 02:18 Oxygen Delivery Me thod Room Air 02/21/23 02:18 MDM - Alcohol Medical Decision Making Patient presents here with alcohol intoxication patient's not suicidal or homicidal she is clinically sober now awake and alert ambulatory she is stable for discharge she is to follow-up PCP and return if worsening. Medical Records I reviewed the patient's medical records. Lab Data I reviewed the patient's lab results. 02/21/23 03:24 02/21/23 03:24 Laboratory Results WBC 9.5 10^3/uL (4.0-10.0) 02/21/23 03:24 RBC 4.94 10^6/uL (4.1-5.3) 02/21/23 03:24 Hgb 13.6 g/dL (11.5-15.3) 02/21/23 03:24 Hct 42.0 % (37.0-47.0) 02/21/23 03:24 MCV 85.0 fl (81-99) 02/21/23 03:24 MCH 27.5 pg (28.0-34.0) L 02/21/23 03:24 MCHC 32.4 g/dL (30.0-36.0) 02/21/23 03:24 RDW 16.6 % (12.1-15.1) H 02/21/23 03:24 Plt Count 323 10^3/cmm (130-400) 02/21/23 03:24 MPV 9.7 fL (7.4-10.4) 02/21/23 03:24 Neut % (Auto) 64.6 % 02/21/23 03:24 Lymph % (Auto) 27.4 % 02/21/23 03:24 [place] % (Auto) 6.1 % 02/21/23 03:24 Eos % (Auto) 1.3 % 02/21/23 03:24 Baso % (Auto) 0.2 % 02/21/23 03:24 Neut # (Auto) 6.15 10^3/uL (1.8-7.7) 02/21/23 03:24 Lymph # (Auto) 2.6 10^3/uL (0.8-4.8) 02/21/23 03:24 [place] # (Auto) 0.6 10^3/uL (0.2-0.9) 02/21/23 03:24 Eos # (Auto) 0.1 10^3/uL (0.0-0.8) 02/21/23 03:24 Baso # (Auto) 0.0 10^3/uL (0.0-0.1) 02/21/23 03:24 Nucleated RBC % (auto) 0 % 02/21/23 03:24 Nucleated RBCs # 0.0 /100WBC 02/21/23 03:24 Sodium 145 mmol/L (136-145) 02/21/23 03:24 Potassium 3.3 mmol/L (3.5-5.1) L 02/21/23 03:24 Chloride 106 mmol/L (98-107) 02/21/23 03:24 Carbon Dioxide 24 mmol/L (22-29) 02/21/23 03:24 Anion Gap 18.3 (5-19) 02/21/23 03:24 BUN 17 mg/dL (6-20) 02/21/23 03:24 Creatinine 0.9 mg/dL (0.5-0.9) 02/21/23 03:24 GFR Calculation 69.0 mL/min (90-130) L 02/21/23 03:24 Glucose 140 mg/dL (65-115) H 02/21/23 03:24 Calculated Osmolality 304 mOsm/kg (285-295) H 02/21/23 03:24 Calcium 8.9 mg/dL (8.5-10.5) 02/21/23 03:24 Total Bilirubin 0.3 mg/dL (0.15-1.2) 02/21/23 03:24 AST 14 U/L (0-32) 02/21/23 03:24 ALT 13 U/L (0-33) 02/21/23 03:24 Alkaline Phosphatase 88 U/L (35-105) 02/21/23 03:24 Total Protein 7.8 g/dL (6.6-8.7) 02/21/23 03:24 Albumin 4.6 g/dL (3.5-5.2) 02/21/23 03:24 Globulin 3.2 g/dL (1.3-4.6) 02/21/23 03:24 Salicylates < 0.3 mg/dL (3-10) L 02/21/23 03:24 Acetaminophen < 5.0 ug/mL (10-30) L 02/21/23 03:24 Ethyl Alcohol 239 mg/dL (0-10) H 02/21/23 03:24 Discharge Plan Discharge Patient Disposition: Home Clinical Impression: Alcoholic intoxication Condition: Stable Prescriptions: No Action meloxicam 15 mg tablet 15 mg PO DAILY PRN (Reason: pain) Qty: 90 0RF albuterol sulfate 90 mcg/actuation HFA aerosol inhaler 1 - 2 puff INHALATION Q4H PRN (Reason: Shortness Of Breath) ibuprofen 800 mg tablet 800 mg PO Q8H PRN (Reason: pain) Qty: 30 0RF acetaminophen 500 mg Tablet 1,500 mg PO Q6H PRN (Reason: Pain) clonazepam 0.5 mg Tablet 0.5 mg PO BID 30 Days Qty: 60 1RF gabapentin 600 mg tablet 1,200 mg PO TID 30 Days Qty: 180 1RF trazodone 150 mg tablet 150 mg PO BEDTIME 30 Days Qty: 30 1RF hydrocodone-acetaminophen 7.5-325 mg tablet 1 tab PO BID PRN (Reason: pain (scale score 7-10)) Qty: 10 0RF tizanidine 4 mg tablet 4 mg PO Q8H PRN (Reason: Pain) paroxetine HCl 30 mg tablet 30 mg PO BEDTIME Singulair 10 mg tablet 10 mg PO BEDTIME tizanidine 4 mg capsule 4 mg PO Q8H PRN (Reason: muscle spasticity) Qty: 15 0RF ondansetron 4 mg tablet,disintegrating 4 mg PO Q8H PRN (Reason: nausea and vomiting) Qty: 12 0RF Discharge Orders: Discharge ED (Routine); Ordered 02/21/23 Ordered By: Nolan Rodriguez Referrals: Willard Ham MD [Primary Care Provider] - Discharge Diet: Advance as tolerated Discharge Activity: Resume usual activity Patient Instructions: Alcohol Intoxication (ED) Coding Level of Care Code ED Desulfurizer Operator for Milagro Lao
--- NOTE | 2023-02-21 02:45 | PC.NURSE ---
Pt admitted to [facility] during triage. Pt room has been stripped, pt's belongings removed and labeled in bag with patient sticker.
[2023-02-21 03:30] LABS: Basophils % 0.2 %; Eosinophils # 0.1 10^3/uL (0.0-0.8); Eosinophils % 1.3 %; Hemoglobin 13.6 g/dL (11.5-15.3); Lymphocytes # 2.6 10^3/uL (0.8-4.8); Lymphocytes % 27.4 %; Mean Corpuscular HGB Conc 32.4 g/dL (30.0-36.0); Mean Corpuscular Hemoglobin 27.5 pg (28.0-34.0); Mean Platelet Volume 9.7 fL (7.4-10.4); Monocytes # 0.6 10^3/uL (0.2-0.9); Monocytes % 6.1 %; Neutrophils # 6.15 10^3/uL (1.8-7.7); Neutrophils % 64.6 %; Nucleated Red Blood Cells % 0 %; Platelet Count 323 10^3/cmm (130-400); Red Blood Count 4.94 10^6/uL (4.1-5.3); Red Cell Distribution Width 16.6 % (12.1-15.1); White Blood Count 9.5 10^3/uL (4.0-10.0)
[2023-02-21 03:49] LABS: Alanine Aminotransferase 13 U/L (0-33); Albumin Level 4.6 g/dL (3.5-5.2); Alcohol Level 239 mg/dL (0-10); Alkaline Phosphatase 88 U/L (35-105); Anion Gap 18.3 (5-19); Aspartate Amino Transferase 14 U/L (0-32); Blood Urea Nitrogen 17 mg/dL (6-20); Calcium 8.9 mg/dL (8.5-10.5); Carbon Dioxide 24 mmol/L (22-29); Chloride 106 mmol/L (98-107); Globulin 3.2 g/dL (1.3-4.6); Glucose 140 mg/dL (65-115); Osmolality Calculated 304 mOsm/kg (285-295); Potassium 3.3 mmol/L (3.5-5.1); Sodium 145 mmol/L (136-145); Total Bilirubin 0.3 mg/dL (0.15-1.2); Total Protein 7.8 g/dL (6.6-8.7)
[2023-02-21 03:50] LABS: Acetaminophen < 5.0 ug/mL (10-30); Salicylate < 0.3 mg/dL (3-10)
--- NOTE | 2023-02-21 06:54 | PC.NURSE ---
Report given to XAVI [place] who assumed care at this time
== END 2023-02-21 07:47 | disposition home or self-care (01) ==
PROVIDERS: Emergency Provider Emergency Medicine; PCP Family Medicine
DX: F10.129 Alcohol abuse with intoxication, unspecified (principal); Y90.7 Blood alcohol level of 200-239 mg/100 ml; F17.210 Nicotine dependence, cigarettes, uncomplicated; I10 Essential (primary) hypertension; E11.9 Type 2 diabetes mellitus without complications
CPT/HCPCS: 36415; 80053; 80307; 85025; 99283

== ENCOUNTER 2023-02-25 06:47 | Emergency (ER) | payer MEDICARE, MEDICAID, SELFPAY ==
[2023-02-25 06:48] VITALS: BP 174/114; PULSE 73; RESP 18; TEMP 36.5; O2SAT 97; BMI 45.3
--- NOTE | 2023-02-25 06:50 | W.ED.GENADLT ---
HPI - General Adult General: Chief complaint: Extremity Problem,Nontraumatic Stated complaint: bilateral knee, leg pain Time Seen by Provider: 02/25/23 06:49 Source: patient and EMS Mode of arrival: EMS Limitations: no limitations History of Present Illness: 42-year-old female states that she has chronic leg pain states that she has been having bilateral lower leg pain for weeks it worsened this morning she denies any severe pain she is ambulatory here she rates pain a 6 out of 10 states she does have some able to sleep. Denies any swelling. Associated symptoms: Deny chest pain, dyspnea, headache(s), nausea, rash or vomiting Review of Systems Const: Denies: fever(s) or chills Eyes: Denies: eye discomfort ENMT: Denies: throat pain or dental pain Card: Denies: chest pain Resp: Denies: dyspnea GI: Denies: abdominal pain, nausea, vomiting or diarrhea Musc: Reports: extremity pain; Denies: neck pain or back pain Skin/Breast: Denies: rash Neuro: Denies: headache(s) PFSH ED PFSH: Medical History Abnormal uterine bleeding (AUB) Asthma Benign essential HTN Bilateral primary osteoarthritis of knee DDD (degenerative disc disease) Fatty infiltration of liver Gender dysphoria Hypothyroidism Intervertebral disc disorders with radiculopathy, lumbar region Major depressive disorder, recurrent severe without psychotic features Methamphetamine dependence, episodic Morbid obesity with BMI of 50.0-59.9, adult Nicotine dependence, cigarettes, uncomplicated Opiate abuse, episodic Psychiatric care Pyuria Uncontrolled type 2 diabetes mellitus, without long-term current use of insulin Urinary incontinence Surgical History History of endometrial biopsy (04/13/20) benign endocervical epithelium History of ureter stent Hx of foot surgery S/P laparoscopic appendectomy (04/19/20) Family History Mother Diabetes Sister Cancer ovarian Other Dementia Heart disease Hypertension Psychiatric illness Denies family history of CAD (coronary artery disease) Clotting disorder Hyperlipidemia Chronic kidney disease (CKD) Anesthesia complication Bleeding disorder Lung disease Stroke Social History Smoking and tobacco status: current every day smoker cigarettes Packs smoked per day: 0.5 Alcohol intake: current Alcohol intake frequency: few times a month Alcohol type: beer and hard liquor Substance/Drug Use: current Substance/Drug use frequency: few times a month Other substance/drug use details: Occasional marijuana Lives independently: Yes Household members: other Details: partner and her mom Marital status: Single Number of children: 0 Current occupational status: disabled Current gender identity: Male and Other Gender Identity Comment: Goes by Saul, considering formal transition Special hero needs: No Agree to transfusion: Yes Physical Exam Const: COMMON NORMALS: no acute distress and patient oriented x3 HENMT: COMMON NORMALS: normocephalic and atraumatic HEAD & SCALP: normocephalic and atraumatic Eye: COMMON NORMALS: conjunctivae normal CONJUNCTIVA: Yes conjunctivae normal Neck/C-Spine: COMMON NORMALS: supple Chest: COMMONS NORMALS: normal inspection of the chest Cardio: COMMON NORMALS: regular rate RATE: regular rate GI: INSPECTION: Yes normal to inspection Extremity: OTHER: No deformities noted bilateral legs no tenderness patient is ambulatory no swelling in her calfs distal pulses intact Neuro: COMMON NORMALS: patient oriented x3 Psych: COMMON NORMALS: mental status grossly normal Skin: COMMON NORMALS: no rashes or lesions noted GENERAL SKIN EXAM: no rashes or lesions noted Course Vital Signs: Vital signs: Vital Signs Temperature 97.7 F 02/25/23 06:48 Pulse Rate 73 02/25/23 06:48 Respiratory Rate 18 02/25/23 06:48 Blood Pressure 174/114 02/25/23 06:48 Pulse Oximetry 97 02/25/23 06:48 Oxygen Delivery Me thod Room Air 02/25/23 06:48 [facility] - General Adult Medical Decision Making Patient presents here with bilateral leg pain is chronic in nature she is ambulatory well-appearing here exam is benign she is stable for discharge Patient is angry she is not getting a prescription for narcotics she has no signs of any severe injury here. Discharge Plan Discharge Patient Disposition: Home Clinical Impression: Chronic leg pain Condition: Stable Prescriptions: New Naprosyn 500 mg tablet 500 mg PO BID PRN (Reason: pain) Qty: 20 0RF No Action meloxicam 15 mg tablet 15 mg PO DAILY PRN (Reason: pain) Qty: 90 0RF albuterol sulfate 90 mcg/actuation HFA aerosol inhaler 1 - 2 puff INHALATION Q4H PRN (Reason: Shortness Of Breath) ibuprofen 800 mg tablet 800 mg PO Q8H PRN (Reason: pain) Qty: 30 0RF acetaminophen 500 mg Tablet 1,500 mg PO Q6H PRN (Reason: Pain) clonazepam 0.5 mg Tablet 0.5 mg PO BID 30 Days Qty: 60 1RF gabapentin 600 mg tablet 1,200 mg PO TID 30 Days Qty: 180 1RF trazodone 150 mg tablet 150 mg PO BEDTIME 30 Days Qty: 30 1RF hydrocodone-acetaminophen 7.5-325 mg tablet 1 tab PO BID PRN (Reason: pain (scale score 7-10)) Qty: 10 0RF tizanidine 4 mg tablet 4 mg PO Q8H PRN (Reason: Pain) paroxetine HCl 30 mg tablet 30 mg PO BEDTIME Singulair 10 mg tablet 10 mg PO BEDTIME tizanidine 4 mg capsule 4 mg PO Q8H PRN (Reason: muscle spasticity) Qty: 15 0RF ondansetron 4 mg tablet,disintegrating 4 mg PO Q8H PRN (Reason: nausea and vomiting) Qty: 12 0RF Discharge Orders: Discharge ED (Routine); Ordered 02/25/23 Ordered By: Nolan Rodriguez Referrals: Willard Ham MD [Primary Care Provider] - 1-3 days Discharge Diet: Advance as tolerated Discharge Activity: Resume usual activity Patient Instructions: Leg Pain (ED) Coding Level of Care Code ED Magnetic Testing Technician for [facility]o
[2023-02-25] MEDS: HYDROcodone-acetaminophen 5-325 mg Tablet 1 TAB PO (07:00)
== END 2023-02-25 07:48 | disposition home or self-care (01) ==
LOC: ER 06:56
PROVIDERS: Emergency Provider Emergency Medicine; PCP Family Medicine
DX: G89.29 Other chronic pain (principal); M79.605 Pain in left leg; M79.604 Pain in right leg; F17.210 Nicotine dependence, cigarettes, uncomplicated; I10 Essential (primary) hypertension; E11.9 Type 2 diabetes mellitus without complications
CPT/HCPCS: 99283

== ENCOUNTER 2023-03-10 19:12 | Emergency (ER) | payer MEDICARE, MEDICAID, SELFPAY ==
[2023-03-10 20:23] VITALS: BMI 42.4
[2023-03-10 20:26] VITALS: BP 159/96; PULSE 78; RESP 16; TEMP 36.8; O2SAT 95
--- NOTE | 2023-03-10 22:42 | ED_ITS ---
HPI - Back Pain/Injury General: Chief Complaint: Back Pain/Injury Stated Complaint: lower back pain Time Seen by Provider: 03/10/23 22:13 History of Present Illness: 42-year-old female comes in today with complaints of low back pain and increasing urinary difficulty. Patient was concerned that she may be developing an infection. Patient appears nontoxic. Patient appears in mild to moderate pain. Review of Systems General: Reports: 10 or more systems reviewed and unremarkable except in HPI and below Musc: Reports: back pain PFSH ED PFSH: Medical History Abnormal uterine bleeding (AUB) Asthma Benign essential HTN Bilateral primary osteoarthritis of knee DDD (degenerative disc disease) Fatty infiltration of liver Gender dysphoria Hypothyroidism Intervertebral disc disorders with radiculopathy, lumbar region Major depressive disorder, recurrent severe without psychotic features Methamphetamine dependence, episodic Morbid obesity with BMI of 50.0-59.9, adult Nicotine dependence, cigarettes, uncomplicated Opiate abuse, episodic Psychiatric care Pyuria Uncontrolled type 2 diabetes mellitus, without long-term current use of insulin Urinary incontinence Surgical History History of endometrial biopsy (04/13/20) benign endocervical epithelium History of ureter stent Hx of foot surgery S/P laparoscopic appendectomy (04/19/20) Family History Mother Diabetes Sister Cancer ovarian Other Dementia Heart disease Hypertension Psychiatric illness Denies family history of CAD (coronary artery disease) Clotting disorder Hyperlipidemia Chronic kidney disease (CKD) Anesthesia complication Bleeding disorder Lung disease Stroke Social History (Updated 02/28/23 @ 11:20 by Jayda Avilez LPN) Smoking and tobacco status: current every day smoker cigarettes Packs smoked per day: 0.5 Alcohol intake: current Alcohol intake frequency: few times a month Alcohol type: beer and hard liquor Substance/Drug Use: former Date of last use: 2017 Lives independently: Yes Household members: other Details: partner and her mom Marital status: Single Number of children: 0 Current occupational status: disabled Current gender identity: Male and Other Gender Identity Comment: Goes by Saul, considering formal transition Special hero needs: No Agree to transfusion: Yes Physical Exam Const: COMMON NORMALS: alert HENMT: COMMON NORMALS: normocephalic HEAD & SCALP: normocephalic Resp: COMMON NORMALS: normal respiratory effort Cardio: COMMON NORMALS: regular rate RATE: regular rate Back/Pelvis: LUMBAR SPINE/LOWER BACK: Yes lumbar spinal tenderness Neuro: SENSORIUM/ORIENTATION: Yes alert Skin: COMMON NORMALS: turgor normal GENERAL SKIN EXAM: turgor normal Course Vital Signs: Vital signs: Vital Signs Temperature 98.2 F 03/10/23 20:26 Pulse Rate 78 03/10/23 20:26 Respiratory Rate 16 03/10/23 20:26 Blood Pressure 159/96 03/10/23 20:26 Pulse Oximetry 95 03/10/23 20:26 Oxygen Delivery Me thod Room Air 03/10/23 20:26 MDM - Back Pain/Injury Medical Decision Making Has [id number] female comes in today with low back pain back pain that is exacerbated over the last 2 days. Patient reports her routine pain medi cations are not helping this pain. Patient appears nontoxic. Patient appears in mild to moderate pain. Differential diagnosis includes not limited to urinary tract infection, constipation, intervertebral disc disease, facet arthropathy. Urinalysis was clean. Believe patient probably has exacerbation of her chronic back pain. Patient was given total of 8 mg of morphine IM with recommendations for follow-up with primary care. Patient stated understanding and agreed to plan. Labs Laboratory Results HCG, Qual Negative (Negative) 03/10/23 22:32 Urine Color Yellow (Yellow) 03/10/23 22:32 Urine Appearance Clear (CLEAR) 03/10/23 22:32 Urine pH 7 (5-7) 03/10/23 22:32 Ur Specific Heppner 1.010 (1.005-1.030) 03/10/23 22:32 Urine Protein Neg (Negative) 03/10/23 22:32 Urine Glucose (UA) Norm (Normal) 03/10/23 22:32 Urine Ketones Negative (Negative) 03/10/23 22:32 Urine Blood Neg (Negative) 03/10/23 22:32 Urine Nitrate Negative (Negative) 03/10/23 22:32 Urine Bilirubin Neg (Negative) 03/10/23 22:32 Urine Urobilinogen Norm mg/dL (Negative) 03/10/23 22:32 Ur Leukocyte Esterase Negative (Negative) 03/10/23 22:32 Discharge Plan Discharge Patient Disposition: Home Clinical Impression: History of UTI Back pain Qualifiers: Back pain location: low back pain Chronicity: chronic Back pain laterality: unspecified Sciatica presence: without sciatica Qualified Code(s): M54.50 - Low back pain, unspecified Condition: Stable Prescriptions: No Action Naprosyn 500 mg tablet 500 mg PO BID PRN (Reason: pain) Qty: 120 1RF tizanidine 4 mg tablet 4 mg PO Q8H PRN (Reason: Pain) Qty: 60 1RF prednisone 20 mg tablet 60 mg PO DAILY 3 Days Qty: 9 0RF albuterol sulfate 90 mcg/actuation HFA aerosol inhaler 1 - 2 puff INHALATION Q4H PRN (Reason: Shortness Of Breath) acetaminophen 500 mg Tablet 1,500 mg PO Q6H PRN (Reason: Pain) clonazepam 0.5 mg Tablet 0.5 mg PO BID 30 Days Qty: 60 1RF gabapentin 600 mg tablet 1,200 mg PO TID 30 Days Qty: 180 1RF trazodone 150 mg tablet 150 mg PO BEDTIME 30 Days Qty: 30 1RF paroxetine HCl 30 mg tablet 30 mg PO BEDTIME Singulair 10 mg tablet 10 mg PO BEDTIME Discharge Orders: Discharge ED (Routine); Ordered 03/10/23 Ordered By: Sukhi Vigil Referrals: Willard Ham MD [Primary Care Provider] - Discharge Diet: Usual diet Discharge Activity: Increase activity as tolerated Patient Instructions: Opioid Safety, Pain Management Activity Restrictions/Additional Instructions: Home and rest. Activity as tolerated. Continue with routine care as directed. Follow-up with primary care in the morning. Return to ED for high fever, loss of bowel or bladder control, blood in vomit or stool. Coding Level of Care Code ED Director Internal Audit for [facility]
[2023-03-10 22:43] LABS: Add Urine Microscopic? NO; Charge for UA Resulting for Rev
[2023-03-10 22:45] LABS: Bilirubin Urine Neg (Negative); Blood Urine Neg (Negative); Glucose Urine UA Norm (Normal); Ketones Urine Negative (Negative); Leukocyte Esterase Urine Negative (Negative); Nitrate Urine Negative (Negative); Protein Urine Neg (Negative); Urine Appearance Clear (CLEAR); Urine Color Yellow (Yellow); Urobilinogen Urine Norm (Negative); pH Urine 7 (5-7)
[2023-03-10] MEDS: morphine 4 mg/mL SDV 1 mL IM ×2 (22:46→23:56)
[2023-03-10 22:47] LABS: HCG Qualitative Urine. Negative (Negative)
== END 2023-03-10 23:58 | disposition home or self-care (01) ==
PROVIDERS: Emergency Medicine; Emergency Provider Nurse Practitioner Family; PCP Family Medicine
DX: M54.50 Low back pain, unspecified (principal); Z87.440 Personal history of urinary (tract) infections; F17.210 Nicotine dependence, cigarettes, uncomplicated; I10 Essential (primary) hypertension; E11.9 Type 2 diabetes mellitus without complications
CPT/HCPCS: 81003; 81025; 96372; 99284; J2270

== ENCOUNTER → 2023-03-17 14:10 | Outpatient (BNVA) | payer MEDICARE, MEDICAID, SELFPAY | PROVIDERS: PCP Family Medicine; Referring Provider Family Medicine; Visit Provider Specialist | DX: M17.0 Bilateral primary osteoarthritis of knee (principal); E66.01 Morbid (severe) obesity due to excess calories; Z68.41 Body mass index [BMI] 40.0-44.9, adult | CPT/HCPCS: 20610; 73560; 73565; 99204; J1100; J2795; J3301 ==

== ENCOUNTER 2023-03-21 20:28 | Emergency (ER) | payer MEDICARE, MEDICAID, SELFPAY ==
[2023-03-21 20:30] VITALS: BP 157/103; PULSE 81; RESP 20; TEMP 36.6; O2SAT 98; BMI 43.4
--- NOTE | 2023-03-21 20:37 | ED.C_ITS ---
HPI - Psych General: Chief Complaint: Psychiatric Symptoms Stated Complaint: SI Time Seen by Provider: 03/21/23 20:31 Source: patient and police Limitations: no limitations History of Present Illness: 42-year-old female well-known to ER she is at the homeless residential today she had been drinking and they called police and arrested her she states that when she is at nursing home she was upset saying that she is suicidal they released her from nursing home and brought her here. She states she is no longer homicidal suicidal she states she is just saying that has no other complaints at this time. Associated symptoms: Reports depression Review of Systems Const: Denies: fever(s) or chills ENMT: Denies: throat pain or dental pain Card: Denies: chest pain Resp: Denies: dyspnea GI: Denies: abdominal pain, nausea, vomiting or diarrhea Musc: Denies: neck pain or back pain Skin/Breast: Denies: rash Neuro: Denies: headache(s) Psych: Reports: depression PFSH ED PFSH: Medical History Abnormal uterine bleeding (AUB) Asthma Benign essential HTN Bilateral primary osteoarthritis of knee DDD (degenerative disc disease) Fatty infiltration of liver Gender dysphoria Hypothyroidism Intervertebral disc disorders with radiculopathy, lumbar region Major depressive disorder, recurrent severe without psychotic features Methamphetamine dependence, episodic Morbid obesity with BMI of 50.0-59.9, adult Nicotine dependence, cigarettes, uncomplicated Opiate abuse, episodic Psychiatric care Pyuria Uncontrolled type 2 diabetes mellitus, without long-term current use of insulin Urinary incontinence Surgical History History of endometrial biopsy (04/13/20) benign endocervical epithelium History of ureter stent Hx of foot surgery S/P laparoscopic appendectomy (04/19/20) Family History Mother Diabetes Sister Cancer ovarian Other Dementia Heart disease Hypertension Psychiatric illness Denies family history of CAD (coronary artery disease) Clotting disorder Hyperlipidemia Chronic kidney disease (CKD) Anesthesia complication Bleeding disorder Lung disease Stroke Social History Smoking and tobacco status: current every day smoker cigarettes Packs smoked per day: 0.5 Alcohol intake: current Alcohol intake frequency: few times a month Alcohol type: beer and hard liquor Substance/Drug Use: former Date of last use: 2017 Lives independently: Yes Household members: other Details: partner and her mom Marital status: Single Number of children: 0 Current occupational status: disabled Current gender identity: Male and Other Gender Identity Comment: Goes by Saul, considering formal transition Special hero needs: No Agree to transfusion: Yes Physical Exam Const: COMMON NORMALS: no acute distress, patient oriented x3 and healthy appearing HENMT: COMMON NORMALS: normocephalic and atraumatic HEAD & SCALP: normocephalic and atraumatic Eye: COMMON NORMALS: conjunctivae normal CONJUNCTIVA: Yes conjunctivae normal Neck/C-Spine: COMMON NORMALS: full ROM Chest: COMMONS NORMALS: normal inspection of the chest Resp: COMMON NORMALS: normal respiratory effort Cardio: COMMON NORMALS: regular rate and No murmurs present (Cardio) RATE: regular rate Extremity: COMMON NORMALS: normal to inspection and full ROM Neuro: COMMON NORMALS: patient oriented x3, moves all extremities and no focal motor deficits Psych: COMMON NORMALS: mental status grossly normal, Normal thought process present and cooperative THOUGHT PROCESS: Normal thought process present Skin: COMMON NORMALS: no rashes or lesions noted and no wounds GENERAL SKIN EXAM: no rashes or lesions noted Course Vital Signs: Vital signs: Vital Signs Temperature 98 F 03/21/23 20:30 Pulse Rate 81 03/21/23 20:30 Respiratory Rate 20 H 03/21/23 20:30 Blood Pressure 157/103 03/21/23 20:30 Pulse Oximetry 98 03/21/23 20:30 MDM - Psych Medical Decision Making Patient presents with alcohol intoxication with police concern of statements she had made a believe she just made the statements that she was angry and was being arrested I do not believe that she is suicidal she denies any Spoke to Dr. Pineda and reviewed the case with him and he agrees she does not require inpatient we will discharge her at this time. Medical Records I reviewed the patient's medical records. Discharge Plan Discharge Patient Disposition: Home Clinical Impression: Alcohol abuse Condition: Stable Prescriptions: No Action Naprosyn 500 mg tablet 500 mg PO BID PRN (Reason: pain) Qty: 120 1RF tizanidine 4 mg tablet 4 mg PO Q8H PRN (Reason: Pain) Qty: 60 1RF prednisone 20 mg tablet 60 mg PO DAILY 3 Days Qty: 9 0RF albuterol sulfate 90 mcg/actuation HFA aerosol inhaler 1 - 2 puff INHALATION Q4H PRN (Reason: Shortness Of Breath) acetaminophen 500 mg Tablet 1,500 mg PO Q6H PRN (Reason: Pain) clonazepam 0.5 mg Tablet 0.5 mg PO BID 30 Days Qty: 60 1RF gabapentin 600 mg tablet 1,200 mg PO TID 30 Days Qty: 180 1RF trazodone 150 mg tablet 150 mg PO BEDTIME 30 Days Qty: 30 1RF paroxetine HCl 30 mg tablet 30 mg PO BEDTIME Singulair 10 mg tablet 10 mg PO BEDTIME Discharge Orders: Discharge ED (Routine); Ordered 03/21/23 Ordered By: Nolan Rodriguez Referrals: Willard Ham MD [Primary Care Provider] - 1-3 days Discharge Diet: Advance as tolerated Discharge Activity: Resume usual activity Patient Instructions: Abuse of Alcohol (ED) Coding Level of Care Code ED And Taxi Instructor Bus Trolley for [facility]
== END 2023-03-21 20:57 | disposition home or self-care (01) ==
PROVIDERS: Emergency Provider Emergency Medicine; PCP Family Medicine
DX: F10.10 Alcohol abuse, uncomplicated (principal); F17.210 Nicotine dependence, cigarettes, uncomplicated; I10 Essential (primary) hypertension; E11.9 Type 2 diabetes mellitus without complications; Z59.01 Sheltered homelessness
CPT/HCPCS: 99283

== ENCOUNTER 2023-03-22 02:42 | Emergency (ER) | payer MEDICARE, MEDICAID, SELFPAY ==
[2023-03-22 02:43] VITALS: BP 135/75; PULSE 98; RESP 18; TEMP 36.6; O2SAT 97; BMI 41.8
--- NOTE | 2023-03-22 02:46 | ED_ITS ---
HPI - Alcohol General: Chief Complaint: Alcohol Stated Complaint: ETOH Time Seen by Provider: 03/22/23 02:45 Source: patient, EMS and police Mode of arrival: EMS Limitations: no limitations History of Present Illness: 42-year-old female is very well-known to the ED she has been drinking heavily tonight was a residents and police were called patient is very intoxicated here she is able to answer questions she states that she has had a lot to drink tonight she denies SI and HI to me. Associated symptoms: Deny abdominal pain, nausea, suicidal ideation or vomiting Review of Systems Const: Denies: fever(s), chills, body aches or change in appetite ENMT: Denies: throat pain or dental pain Card: Denies: chest pain Resp: Denies: dyspnea GI: Denies: abdominal pain, nausea, vomiting or diarrhea : Denies: dysuria Musc: Denies: neck pain or back pain Skin/Breast: Denies: rash Neuro: Denies: headache(s) Psych: Denies: suicidal ideation PFSH ED PFSH: Medical History Abnormal uterine bleeding (AUB) Asthma Benign essential HTN Bilateral primary osteoarthritis of knee DDD (degenerative disc disease) Fatty infiltration of liver Gender dysphoria Hypothyroidism Intervertebral disc disorders with radiculopathy, lumbar region Major depressive disorder, recurrent severe without psychotic features Methamphetamine dependence, episodic Morbid obesity with BMI of 50.0-59.9, adult Nicotine dependence, cigarettes, uncomplicated Opiate abuse, episodic Psychiatric care Pyuria Uncontrolled type 2 diabetes mellitus, without long-term current use of insulin Urinary incontinence Surgical History History of endometrial biopsy (04/13/20) benign endocervical epithelium History of ureter stent Hx of foot surgery S/P laparoscopic appendectomy (04/19/20) Family History Mother Diabetes Sister Cancer ovarian Other Dementia Heart disease Hypertension Psychiatric illness Denies family history of CAD (coronary artery disease) Clotting disorder Hyperlipidemia Chronic kidney disease (CKD) Anesthesia complication Bleeding disorder Lung disease Stroke Social History Smoking and tobacco status: current every day smoker cigarettes Packs smoked per day: 0.5 Alcohol intake: current Alcohol intake frequency: few times a month Alcohol type: beer and hard liquor Substance/Drug Use: former Date of last use: 2017 Lives independently: Yes Household members: other Details: partner and her mom Marital status: Single Number of children: 0 Current occupational status: disabled Current gender identity: Male and Other Gender Identity Comment: Goes by Saul, considering formal transition Special hero needs: No Agree to transfusion: Yes Physical Exam Const: COMMON NORMALS: patient oriented x3 GENERAL APPEARANCE: odor of alcohol detected HENMT: COMMON NORMALS: normocephalic and atraumatic HEAD & SCALP: normocephalic and atraumatic Eye: COMMON NORMALS: Equal, round and reactive pupils present and EOMs intact bilaterally PUPIL: Yes Equal, round and reactive pupils present Neck/C-Spine: COMMON NORMALS: full ROM and supple Chest: COMMONS NORMALS: normal inspection of the chest and normal palpation of entire chest wall Resp: COMMON NORMALS: normal respiratory effort, No retractions, No use of accessory muscles and clear to auscultation bilaterally AUSCULTATION: clear to auscultation bilaterally Cardio: COMMON NORMALS: regular rate, regular rhythm and No murmurs present ( Cardio) RATE: regular rate RHYTHM: regular rhythm GI: COMMON NORMALS: Normal to inspection, nondistended, normoactive bowel sounds present, Soft to palpation, non-tender and no masses PALPATION: Yes Soft to palpation Extremity: COMMON NORMALS: normal to inspection and full ROM Neuro: COMMON NORMALS: patient oriented x3, moves all extremities and no focal motor deficits Psych: COMMON NORMALS: mental status grossly normal, Normal thought process present and cooperative THOUGHT PROCESS: Normal thought process present Skin: COMMON NORMALS: no rashes or lesions noted and no wounds GENERAL SKIN EXAM: no rashes or lesions noted Course Vital Signs: Vital signs: Vital Signs Temperature 98 F 03/22/23 02:43 Pulse Rate 98 03/22/23 02:43 Respiratory Rate 18 03/22/23 02:43 Blood Pressure 135/75 03/22/23 02:43 Pulse Oximetry 97 03/22/23 02:43 MDM - Alcohol Medical Decision Making Patient presents here with alcohol intoxication she is observed she is now clinically sober able to ambulate she is stable for discharge she is not suicidal or homicidal. Discharge Plan Discharge Patient Disposition: Home Clinical Impression: Alcoholic intoxication Condition: Stable Prescriptions: No Action Naprosyn 500 mg tablet 500 mg PO BID PRN (Reason: pain) Qty: 120 1RF tizanidine 4 mg tablet 4 mg PO Q8H PRN (Reason: Pain) Qty: 60 1RF prednisone 20 mg tablet 60 mg PO DAILY 3 Days Qty: 9 0RF albuterol sulfate 90 mcg/actuation HFA aerosol inhaler 1 - 2 puff INHALATION Q4H PRN (Reason: Shortness Of Breath) acetaminophen 500 mg Tablet 1,500 mg PO Q6H PRN (Reason: Pain) clonazepam 0.5 mg Tablet 0.5 mg PO BID 30 Days Qty: 60 1RF gabapentin 600 mg tablet 1,200 mg PO TID 30 Days Qty: 180 1RF trazodone 150 mg tablet 150 mg PO BEDTIME 30 Days Qty: 30 1RF paroxetine HCl 30 mg tablet 30 mg PO BEDTIME Singulair 10 mg tablet 10 mg PO BEDTIME Discharge Orders: Discharge ED (Routine); Ordered 03/22/23 Ordered By: Nolan Rodriguez Referrals: Willard Ham MD [Primary Care Provider] - 1-3 days Discharge Diet: Advance as tolerated Discharge Activity: Resume usual activity Patient Instructions: Alcohol Intoxication (ED) Coding Level of Care Code ED Water Project Engineer for [facility] Lao
== END 2023-03-22 09:42 | disposition home or self-care (01) ==
PROVIDERS: Emergency Provider Emergency Medicine; PCP Family Medicine
DX: F10.129 Alcohol abuse with intoxication, unspecified (principal); Y90.9 Presence of alcohol in blood, level not specified; F17.210 Nicotine dependence, cigarettes, uncomplicated; I10 Essential (primary) hypertension; E11.9 Type 2 diabetes mellitus without complications
CPT/HCPCS: 99283

== ENCOUNTER 2023-03-28 15:33 | Emergency (ER) | payer MEDICARE, MEDICAID, SELFPAY ==
[2023-03-28 15:34] VITALS: BP 158/99; PULSE 79; RESP 18; TEMP 36.4; O2SAT 99; BMI 43.9
[2023-03-28 15:37] VITALS: BP 158/99; PULSE 79; RESP 18; O2SAT 99
--- NOTE | 2023-03-28 15:51 | ED.C_ITS ---
HPI - Psych General: Chief Complaint: Psychiatric Symptoms Stated Complaint: depression, anxiety Time Seen by Provider: 03/28/23 15:35 Source: patient Mode of arrival: EMS History of Present Illness: 42-year-old female presents emergency room aggravated and anxious. She said she just feels stressed out. She was recently hospitalized discharged in January initially she told that nurses she had stopped taking her medications a week ago she told me it was 2 days ago. In either event she is not had her medications at least in a couple days she said she stopped taking them because she was frustrated and was not sleeping well. She feels like they were not working. She adamantly denies any suicidal or homicidal behavior. She denies any injury or recent illness. When asked patient about what is driving these events for her she states she had been staying at [facility] and found out that she was can have to pay to stay there and they were requiring $600 from her for the time she had been there. She ended up leaving she tells me she got intoxicated and they kicked her out of the same time that she was planning to leave. She has been staying with some friends and they are however the home is in very poor condition evidently there is a lot of pets its not well She said she cannot sleep or eat or shower and that she is got very aggravated and agitated by this when she was not able to sleep she stopped taking her medications. Now she feels like she is more stressed than ever. When I asked what she was hoping we could do for her she really could not give an answer or express a desire. But she continually denied being suicidal or homicidal. complaint: feels depressed and other (Anxious) Onset (ago): day(s) Duration: constant History of same: Yes Relieving factors: none Exacerbating factors: none Context: recent alcohol abuse Review of Systems Const: Denies: fever(s) or chills Card: Denies: chest pain Resp: Denies: dyspnea GI: Denies: abdominal pain Neuro: Denies: headache(s) PFS ED PFSH: Medical History Abnormal uterine bleeding (AUB) Asthma Benign essential HTN Bilateral primary osteoarthritis of knee DDD (degenerative disc disease) Fatty infiltration of liver Gender dysphoria Hypothyroidism Intervertebral disc disorders with radiculopathy, lumbar region Major depressive disorder, recurrent severe without psychotic features Methamphetamine dependence, episodic Morbid obesity with BMI of 50.0-59.9, adult Nicotine dependence, cigarettes, uncomplicated Opiate abuse, episodic Psychiatric care Pyuria Uncontrolled type 2 diabetes mellitus, without long-term current use of insulin Urinary incontinence Surgical History History of endometrial biopsy (04/13/20) benign endocervical epithelium History of ureter stent Hx of foot surgery S/P laparoscopic appendectomy (04/19/20) Family History Mother Diabetes Sister Cancer ovarian Other Dementia Heart disease Hypertension Psychiatric illness Denies family history of CAD (coronary artery disease) Clotting disorder Hyperlipidemia Chronic kidney disease (CKD) Anesthesia complication Bleeding disorder Lung disease Stroke Social History Smoking and tobacco status: current every day smoker cigarettes Packs smoked per day: 0.5 Alcohol intake: current Alcohol intake frequency: few times a month Alcohol type: beer and hard liquor Substance/Drug Use: former Date of last use: 2017 Lives independently: Yes Household members: other Details: partner and her mom Marital status: Single Number of children: 0 Current occupational status: disabled Current gender identity: Male and Other Gender Identity Comment: Goes by Saul, considering formal transition Special hero needs: No Agree to transfusion: Yes Physical Exam Const: COMMON NORMALS: no acute distress GENERAL APPEARANCE: cooperative and comfortable ORIENTATION/CONSCIOUSNESS: Yes awake, Yes oriented to person, Yes oriented to place and Yes oriented to time Neuro: SENSORIUM/ORIENTATION: Yes oriented to person, Yes oriented to place and Yes oriented to time Course Vital Signs: Vital signs: Vital Signs Temperature 97.5 F L 03/28/23 15:34 Pulse Rate 79 03/28/23 15:37 Respiratory Rate 18 03/28/23 15:37 Blood Pressure 158/99 03/28/23 15:37 Pulse Oximetry 99 03/28/23 15:37 Oxygen Delivery Me thod Room Air 03/28/23 15:37 MDM - Psych Medical Decision Making Patient denies suicidal or homicidal ideation. She is rather aggressive in conversation she is generally annoyed with even history taking. She initially told the nurse to be off her medicines for a week she tells me she has been off them for 2 days. Reviewed the discharge summary from her previous hospit alization she is still taking the same medications. She states she missed her last [facility] outpatient appointment because she was late. I discussed case with Dr. Pineda he recommends that she go with crisis stabilization and that we really have her restart her current medications increase her paroxetine to 40 daily. Medical Records I reviewed the patient's medical records. Lab Data I reviewed the patient's lab results. Discharge Plan Discharge Patient Disposition: Home Clinical Impression: Major depressive disorder, recurrent severe without psychotic features, Borderline personality disorder Condition: Stable Prescriptions: New paroxetine HCl 40 mg tablet 40 mg PO DAILY Qty: 30 0RF No Action Naprosyn 500 mg tablet 500 mg PO BID PRN (Reason: pain) Qty: 120 1RF tizanidine 4 mg tablet 4 mg PO Q8H PRN (Reason: Pain) Qty: 60 1RF albuterol sulfate 90 mcg/actuation HFA aerosol inhaler 1 - 2 puff INHALATION Q4H PRN (Reason: Shortness Of Breath) acetaminophen 500 mg Tablet 1,500 mg PO Q6H PRN (Reason: Pain) clonazepam 0.5 mg Tablet 0.5 mg PO BID 30 Days Qty: 60 1RF gabapentin 600 mg tablet 1,200 mg PO TID 30 Days Qty: 180 1RF trazodone 150 mg tablet 150 mg PO BEDTIME 30 Days Qty: 30 1RF paroxetine HCl 30 mg tablet 30 mg PO BEDTIME montelukast [Singulair] 10 mg tablet 10 mg PO BEDTIME meloxicam 15 mg tablet 15 mg PO DAILY PRN (Reason: Pain) hydrocodone-acetaminophen 10-325 mg tablet 1 tab PO Q6H PRN (Reason: Pain) Discharge Orders: Discharge ED (Routine); Ordered 03/28/23 Ordered By: Azar Valle Referrals: Willard Ham MD [Primary Care Provider] - Discharge Diet: Usual diet Patient Instructions: Opioid Safety, Pain Management Activity Restrictions/Additional Instructions: Reviewed your case with Dr. Pineda who is on-call for psychiatry he recommends that we resume your medications increase your paroxetine to 40 mg daily and have you go to the crisis stabilization unit after being discharged from the ER. 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
== END 2023-03-28 16:14 | disposition home or self-care (01) ==
PROVIDERS: Emergency Provider Family Medicine; PCP Family Medicine
DX: F33.2 Major depressive disorder, recurrent severe without psychotic features (principal); F60.3 Borderline personality disorder; F17.210 Nicotine dependence, cigarettes, uncomplicated; I10 Essential (primary) hypertension; E11.9 Type 2 diabetes mellitus without complications
CPT/HCPCS: 99283

== ENCOUNTER 2023-03-28 17:17 | Emergency (ER) | payer MEDICARE, MEDICAID, SELFPAY ==
[2023-03-28 17:18] VITALS: BP 159/93; PULSE 101; RESP 18; TEMP 36.8; O2SAT 97; BMI 43.9
[2023-03-28 17:29] VITALS: BP 153/93; PULSE 101; RESP 18; O2SAT 97
--- NOTE | 2023-03-28 17:29 | W.ED.PSYCHS ---
Documented by User: Azar Valle DO 03/29/23 12:53 HPI - Psych General: Chief Complaint: Psychiatric Symptoms Stated Complaint: si Time Seen by Provider: 03/28/23 17:18 Source: patient Mode of arrival: ambulatory History of Present Illness: Patient was here just within the last hour to after discussion I had discharged the patient to crisis stabilization unit. I did reviewed the patient with Dr. Pineda he requested that we restart her on her medications and increase her paroxetine. Patient what described stabilization evidently started making suicidal ideation comments. She was released from crisis stabilization was to come back to the emergency room when she arrived here evidently she continued to make the comments outside the waiting room doors were refused to come inside the housetrailer servicer as well as security guards talked her she continued to refuse to come inside but continued making suicidal ideation comments. [place] [employer] was called she made suicidal comments to them as well and they brought her into the emergency room to be seen. MD complaint: suicidal ideation Relieving factors: none Exacerbating factors: none Associated symptoms: Deny auditory hallucinations, visual hallucinations, delusions, depression, homicidal ideation, suicidal ideation or racing thoughts If self harm: admits thoughts of self harm Review of Systems Const: Denies: fever(s) or chills Card: Denies: chest pain GI: Denies: abdominal pain Psych: Denies: depression, visual hallucinations, auditory hallucinations, suicidal ideation or homicidal ideation PFS ED PFSH: Medical History Abnormal uterine bleeding (AUB) Asthma Benign essential HTN Bilateral primary osteoarthritis of knee DDD (degenerative disc disease) Fatty infiltration of liver Gender dysphoria Hypothyroidism Intervertebral disc disorders with radiculopathy, lumbar region Major depressive disorder, recurrent severe without psychotic features Methamphetamine dependence, episodic Morbid obesity with BMI of 50.0-59.9, adult Nicotine dependence, cigarettes, uncomplicated Opiate abuse, episodic Psychiatric care Pyuria Uncontrolled type 2 diabetes mellitus, without long-term current use of insulin Urinary incontinence Surgical History History of endometrial biopsy (04/13/20) benign endocervical epithelium History of ureter stent Hx of foot surgery S/P laparoscopic appendectomy (04/19/20) Family History Mother Diabetes Sister Cancer ovarian Other Dementia Heart disease Hypertension Psychiatric illness Denies family history of CAD (coronary artery disease) Clotting disorder Hyperlipidemia Chronic kidney disease (CKD) Anesthesia complication Bleeding disorder Lung disease Stroke Social History Smoking and tobacco status: current every day smoker cigarettes Packs smoked per day: 0.5 Alcohol intake: current Alcohol intake frequency: few times a month Alcohol type: beer and hard liquor Substance/Drug Use: former Date of last use: 2017 Lives independently: Yes Household members: other Details: partner and her mom Marital status: Single Number of children: 0 Current occupational status: disabled Current gender identity: Male and Other Gender Identity Comment: Goes by Saul, considering formal transition Special hero needs: No Agree to transfusion: Yes Physical Exam Const: GENERAL APPEARANCE: cooperative and comfortable ORIENTATION/CONSCIOUSNESS: Yes awake Psych: THOUGHT CONTENT: No delusions Course Vital Signs: Vital signs: Vital Signs Temperature 98.3 F 03/28/23 17:18 Pulse Rate 101 H 03/28/23 17:29 Respiratory Rate 18 03/28/23 17:29 Blood Pressure 153/93 03/28/23 17:29 Pulse Oximetry 97 03/28/23 17:29 Oxygen Delivery Me thod Room Air 03/28/23 17:29 MDM - Psych Medical Decision Making Patient returns now stating she is suicidal. Consulted Dr. Pineda who is come down and seen the patient in the emergency room. He does not recommend admission at this time. Care turned over to Dr. Box at change of shift they are working on discharge planning. See his notes for final disposition 42-year-old female who was checked out to me and transition at shift change by Dr. Briceno. He had spoken with psychiatry about this lady. Psychiatry has evaluated the patient in the ER. She is medically stable. Psychiatry believes that she is psychiatrically stable for discharge as well. There was some trouble getting this patient a ride back to her home. She was discharged to the waiting room while waiting for the ride, and had several outbursts out there. Police were called, and were asked if they could help provide a solution. The patient eventually left of her own accord. Medical Records I reviewed the patient's medical records. Lab Data I reviewed the patient's lab results. Discharge Plan Discharge Patient Disposition: Home Clinical Impression: Major depressive disorder, recurrent severe without psychotic features Condition: Stable Prescriptions: No Action Naprosyn 500 mg tablet 500 mg PO BID PRN (Reason: pain) Qty: 120 1RF tizanidine 4 mg tablet 4 mg PO Q8H PRN (Reason: Pain) Qty: 60 1RF albuterol sulfate 90 mcg/actuation HFA aerosol inhaler 1 - 2 puff INHALATION Q4H PRN (Reason: Shortness Of Breath) acetaminophen 500 mg Tablet 1,500 mg PO Q6H PRN (Reason: Pain) clonazepam 0.5 mg Tablet 0.5 mg PO BID 30 Days Qty: 60 1RF gabapentin 600 mg tablet 1,200 mg PO TID 30 Days Qty: 180 1RF trazodone 150 mg tablet 150 mg PO BEDTIME 30 Days Qty: 30 1RF paroxetine HCl 30 mg tablet 30 mg PO BEDTIME montelukast [Singulair] 10 mg tablet 10 mg PO BEDTIME meloxicam 15 mg tablet 15 mg PO DAILY PRN (Reason: Pain) hydrocodone-acetaminophen 10-325 mg tablet 1 tab PO Q6H PRN (Reason: Pain) Discharge Orders: Discharge ED (Routine); Ordered 03/28/23 Ordered By: Binh Box Referrals: Willard Ham MD [Primary Care Provider] - Activity Restrictions/Additional Instructions: Thank you for visiting the emergency department at [facility] today. During your stay, you have been seen and evaluated by psychiatry as well as the ER physician, and have been deemed stable for discharge. Call your doctor on Friday for follow-up. Return for any new or worsening symptoms. 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 [employer] Documented by User: Binh Box, 03/29/23 05:15 HPI - Psych General: Chief Complaint: Psychiatric Symptoms Stated Complaint: si Time Seen by Provider: 03/28/23 17:18 PFSH ED PFSH: Medical History Abnormal uterine bleeding (AUB) Asthma Benign essential HTN Bilateral primary osteoarthritis of knee DDD (degenerative disc disease) Fatty infiltration of liver Gender dysphoria Hypothyroidism Intervertebral disc disorders with radiculopathy, lumbar region Major depressive disorder, recurrent severe without psychotic features Methamphetamine dependence, episodic Morbid obesity with BMI of 50.0-59.9, adult Nicotine dependence, cigarettes, uncomplicated Opiate abuse, episodic Psychiatric care Pyuria Uncontrolled type 2 diabetes mellitus, without long-term current use of insulin Urinary incontinence Surgical History History of endometrial biopsy (04/13/20) benign endocervical epithelium History of ureter stent Hx of foot surgery S/P laparoscopic appendectomy (04/19/20) Family History Mother Diabetes Sister Cancer ovarian Other Dementia Heart disease Hypertension Psychiatric illness Denies family history of CAD (coronary artery disease) Clotting disorder Hyperlipidemia Chronic kidney disease (CKD) Anesthesia complication Bleeding disorder Lung disease Stroke Social History Smoking and tobacco status: current every day smoker cigarettes Packs smoked per day: 0.5 Alcohol intake: current Alcohol intake frequency: few times a month Alcohol type: beer and hard liquor Substance/Drug Use: former Date of last use: 2017 Lives independently: Yes Household members: other Details: partner and her mom Marital status: Single Number of children: 0 Current occupational status: disabled Current gender identity: Male and Other Gender Identity Comment: Goes by Saul, considering formal transition Special hero needs: No Agree to transfusion: Yes Course Vital Signs: Vital signs: Vital Signs Temperature 98.3 F 03/28/23 17:18 Pulse Rate 101 H 03/28/23 17:29 Respiratory Rate 18 03/28/23 17:29 Blood Pressure 153/93 03/28/23 17:29 Pulse Oximetry 97 03/28/23 17:29 Oxygen Delivery Me thod Room Air 03/28/23 17:29 MDM - Psych Medical Decision Making 42-year-old female who was checked out to me and transition at shift change by Dr. Briceno. He had spoken with psychiatry about this lady. Psychiatry has evaluated the patient in the ER. She is medically stable. Psychiatry believes that she is psychiatrically stable for discharge as well. There was some trouble getting this patient a ride back to her home. She was discharged to the waiting room while waiting for the ride, and had several outbursts out there. Police were called, and were asked if they could help provide a solution. The patient eventually left of her own accord. Discharge Plan Discharge Patient Disposition: Home Clinical Impression: Major depressive disorder, recurrent severe without psychotic features Condition: Stable Prescriptions: No Action Naprosyn 500 mg tablet 500 mg PO BID PRN (Reason: pain) Qty: 120 1RF tizanidine 4 mg tablet 4 mg PO Q8H PRN (Reason: Pain) Qty: 60 1RF albuterol sulfate 90 mcg/actuation HFA aerosol inhaler 1 - 2 puff INHALATION Q4H PRN (Reason: Shortness Of Breath) acetaminophen 500 mg Tablet 1,500 mg PO Q6H PRN (Reason: Pain) clonazepam 0.5 mg Tablet 0.5 mg PO BID 30 Days Qty: 60 1RF gabapentin 600 mg tablet 1,200 mg PO TID 30 Days Qty: 180 1RF trazodone 150 mg tablet 150 mg PO BEDTIME 30 Days Qty: 30 1RF paroxetine HCl 30 mg tablet 30 mg PO BEDTIME montelukast [Singulair] 10 mg tablet 10 mg PO BEDTIME meloxicam 15 mg tablet 15 mg PO DAILY PRN (Reason: Pain) hydrocodone-acetaminophen 10-325 mg tablet 1 tab PO Q6H PRN (Reason: Pain) Discharge Orders: Discharge ED (Routine); Ordered 03/28/23 Ordered By: Binh Box Referrals: Willard Ham MD [Primary Care Provider] - Activity Restrictions/Additional Instructions: Thank you for visiting the emergency department at [facility] today. During your stay, you have been seen and evaluated by psychiatry as well as the ER physician, and have been deemed stable for discharge. Call your doctor on Friday for follow-up. Return for any new or worsening symptoms. 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
== END 2023-03-28 20:18 | disposition home or self-care (01) ==
PROVIDERS: Emergency Provider Emergency Medicine; PCP Family Medicine
DX: F33.2 Major depressive disorder, recurrent severe without psychotic features (principal); I10 Essential (primary) hypertension; E11.9 Type 2 diabetes mellitus without complications; F17.210 Nicotine dependence, cigarettes, uncomplicated; F60.3 Borderline personality disorder
CPT/HCPCS: 99283

== ENCOUNTER → 2023-04-25 10:05 | Outpatient (BNVA) | payer MEDICARE, MEDICAID, OTHER, SELFPAY | PROVIDERS: PCP Family Medicine; Visit Provider Psychiatry & Neurology Psychiatry | DX: Z79.891 Long term (current) use of opiate analgesic (principal); F60.3 Borderline personality disorder; F41.1 Generalized anxiety disorder; F11.20 Opioid dependence, uncomplicated; F15.21 Other stimulant dependence, in remission; F17.210 Nicotine dependence, cigarettes, uncomplicated; F12.20 Cannabis dependence, uncomplicated; F11.10 Opioid abuse, uncomplicated; F15.20 Other stimulant dependence, uncomplicated | CPT/HCPCS: 80307 ==

== ENCOUNTER → 2023-05-07 13:37 | Outpatient (BNVA) | payer MEDICARE, MEDICAID, OTHER, SELFPAY | PROVIDERS: PCP Family Medicine; Visit Provider Psychiatry & Neurology Psychiatry | DX: Z79.891 Long term (current) use of opiate analgesic (principal); F12.20 Cannabis dependence, uncomplicated; F15.21 Other stimulant dependence, in remission; F11.20 Opioid dependence, uncomplicated; F41.1 Generalized anxiety disorder; F60.3 Borderline personality disorder; F33.2 Major depressive disorder, recurrent severe without psychotic features | CPT/HCPCS: 80307 ==

== ENCOUNTER → 2023-05-30 15:46 | Outpatient (BNVA) | payer MEDICARE, MEDICAID, OTHER, SELFPAY | PROVIDERS: PCP Family Medicine; Visit Provider Psychiatry & Neurology Psychiatry | DX: Z79.891 Long term (current) use of opiate analgesic (principal); F12.20 Cannabis dependence, uncomplicated; F15.21 Other stimulant dependence, in remission; F11.20 Opioid dependence, uncomplicated; F41.1 Generalized anxiety disorder; F15.20 Other stimulant dependence, uncomplicated; F60.3 Borderline personality disorder | CPT/HCPCS: 80307 ==

== ENCOUNTER 2023-07-24 10:49 | Emergency (ER) | payer MEDICAID, SELFPAY ==
[2023-07-24 10:52] VITALS: BP 226/146; PULSE 98; RESP 18; TEMP 36.8; O2SAT 96; BMI 41.8
[2023-07-24 10:55] VITALS: BP 155/90; PULSE 92; RESP 18; O2SAT 97
--- NOTE | 2023-07-24 10:58 | W.ED.BACK ---
HPI - Back Pain/Injury General: Chief Complaint: Back Pain/Injury Stated Complaint: Back pain/ Leg pain Time Seen by Provider: 07/24/23 10:52 Source: patient and EMS Mode of arrival: EMS Limitations: no limitations History of Present Illness: 42-year-old female states she has been having right-sided back pain for the last 3 weeks along with some sharp pains going down her left leg. She states the pain is sharp in nature worse with movement she rates her pain an 8 out of 10 currently denies any bowel or bladder incontinence denies any difficulty walking denies any fevers. Associated symptoms: Deny abdominal pain, chills, fever(s), nausea or vomiting Review of Systems Const: Denies: fever(s), chills, body aches or change in appetite ENMT: Denies: throat pain or dental pain Card: Denies: chest pain Resp: Denies: dyspnea GI: Denies: abdominal pain, nausea, vomiting or diarrhea Musc: Reports: back pain; Denies: neck pain Skin/Breast: Denies: rash Neuro: Denies: headache(s) PFSH ED PFSH: Medical History Psychiatric care Opiate abuse, episodic Methamphetamine dependence, episodic Pyuria Morbid obesity with BMI of 50.0-59.9, adult Fatty infiltration of liver Abnormal uterine bleeding (AUB) Urinary incontinence Asthma Benign essential HTN Uncontrolled type 2 diabetes mellitus, without long-term current use of insulin Hypothyroidism DDD (degenerative disc disease) Intervertebral disc disorders with radiculopathy, lumbar region Bilateral primary osteoarthritis of knee Gender dysphoria Nicotine dependence, cigarettes, uncomplicated Major depressive disorder, recurrent severe without psychotic features Surgical History History of ureter stent S/P laparoscopic appendectomy (04/19/20) History of endometrial biopsy (04/13/20) benign endocervical epithelium Hx of foot surgery Family History Mother Diabetes Sister Cancer ovarian Other Dementia Heart disease Hypertension Psychiatric illness Denies family history of CAD (coronary artery disease) Clotting disorder Hyperlipidemia Chronic kidney disease (CKD) Anesthesia complication Bleeding disorder Lung disease Stroke Social History Smoking and tobacco/nicotine status: current every day tobacco/nicotine user cigarettes Packs smoked per day: 1 Alcohol intake: current Alcohol intake frequency: other Alcohol type: beer and hard liquor Substance/Drug Use: former Date of last use: 2017 Lives independently: Yes Household members: other Details: partner and her mom Marital status: Single Number of children: 0 Current occupational status: disabled Current gender identity: Male and Other Gender Identity Comment: Goes by Saul, considering formal transition Special hero needs: No Agree to transfusion: Yes Course Vital Signs: Vital signs: Vital Signs Temperature 98.3 F 07/24/23 10:52 Pulse Rate 90 07/24/23 11:27 Respiratory Rate 18 07/24/23 11:27 Blood Pressure 123/90 07/24/23 11:27 Pulse Oximetry 93 07/24/23 11:27 Oxygen Delivery Me thod Room Air 07/24/23 10:55 MDM - Back Pain/Injury Medical Decision Making Patient presents with back pain no signs of epidural abscess or cauda equina patient stable for discharge she is follow-up with PCP and return if worsening she understands agrees to plan. Medical Records I reviewed the patient's medical records. No radiology studies performed this visit Discharge Plan Discharge Patient Disposition: Home Clinical Impression: Low back pain Qualifiers: Chronicity: acute Back pain laterality: right Sciatica presence: with sciatica Sciatica laterality: sciatica laterality unspecified Qualified Code(s): M54.40 - Lumbago with sciatica, unspecified side Prescriptions: New methocarbamol 750 mg tablet 750 mg PO Q6H PRN (Reason: spasms) Qty: 20 0RF Naprosyn 500 mg tablet 500 mg PO BID PRN (Reason: pain) Qty: 20 0RF No Action naproxen [Naprosyn] 500 mg tablet 500 mg PO BID PRN (Reason: pain) Qty: 120 1RF buspirone 10 mg tablet 10 mg PO BID Qty: 60 1RF prednisone 20 mg tablet 40 mg PO DAILY 5 Days Qty: 10 0RF paroxetine HCl 30 mg tablet 30 mg PO BEDTIME Qty: 30 2RF trazodone 150 mg tablet 600 mg PO BEDTIME 30 Days Qty: 120 2RF albuterol sulfate 90 mcg/actuation HFA aerosol inhaler 1 - 2 puff INHALATION Q4H PRN (Reason: Shortness Of Breath) Qty: 8.5 1RF buprenorphine-naloxone 8-2 mg tablet, sublingual 1 tab sublingual BID Qty: 45 0RF gabapentin 600 mg tablet 1,200 mg PO TID 30 Days Qty: 180 0RF tizanidine 4 mg tablet See Rx Instructions .ROUTE .COMPLEX Qty: 60 0RF Dose Instruction: TAKE ONE TABLET BY MOUTH EVERY 8 HOURS NEEDED FOR PAIN Rx Instructions: TAKE ONE TABLET BY MOUTH EVERY 8 HOURS NEEDED FOR PAIN acetaminophen 500 mg Tablet 1,500 mg PO Q6H PRN (Reason: Pain) montelukast [Singulair] 10 mg tablet 10 mg PO BEDTIME Discharge Orders: Discharge ED (Routine); Ordered 07/24/23 Ordered By: Nolan Rodriguez Referrals: Willard Ham MD [Primary Care Provider] - 1-3 days Discharge Diet: Advance as tolerated Discharge Activity: Resume usual activity Patient Instructions: Acute Low Back Pain (ED) Coding Level of Care Code 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
[2023-07-24] MEDS: ketorolac 30 mg/mL INJ IM (11:05)
[2023-07-24] MEDS: dexamethasone 10 mg/mL INJ IM (11:06)
[2023-07-24] MEDS: HYDROcodone-acetaminophen 5-325 mg Tablet 1 TAB PO (11:06)
[2023-07-24 11:27] VITALS: BP 123/90; PULSE 90; RESP 18; O2SAT 93
== END 2023-07-24 11:35 | disposition home or self-care (01) ==
PROVIDERS: Emergency Provider Emergency Medicine; PCP Family Medicine
DX: M54.50 Low back pain, unspecified (principal); F17.210 Nicotine dependence, cigarettes, uncomplicated; I10 Essential (primary) hypertension; E11.9 Type 2 diabetes mellitus without complications
CPT/HCPCS: 96372; 99284; J1100; J1885

== ENCOUNTER 2023-07-24 18:55 | Emergency (ER) | payer MEDICAID, SELFPAY ==
[2023-07-24 19:12] VITALS: BP 159/96; PULSE 98; RESP 16; TEMP 36.9; O2SAT 91; BMI 44.6
--- NOTE | 2023-07-24 19:21 | W.ED.EXTPRO ---
HPI - Extremity Problem General: Chief complaint: Extremity Injury, Lower Stated complaint: back pain, bilateral leg pain,uncontrolled urine Time Seen by Provider: 07/24/23 19:19 History of Present Illness: 42-year-old female comes in today with low back pain radiating down her left extremity. Patient reports some burning and numbness in her left extremity. Patient is also had increased difficulty with urination. Patient had been seen earlier in the day but is unable to get a ride back to her house due to loss of Medicaid and insurance support. Review of Systems General: Reports: 10 or more systems reviewed and unremarkable except in HPI and below : Reports: difficulty voiding Musc: Reports: back pain PFSH ED PFSH: Medical History Psychiatric care Opiate abuse, episodic Methamphetamine dependence, episodic Pyuria Morbid obesity with BMI of 50.0-59.9, adult Fatty infiltration of liver Abnormal uterine bleeding (AUB) Urinary incontinence Asthma Benign essential HTN Uncontrolled type 2 diabetes mellitus, without long-term current use of insulin Hypothyroidism DDD (degenerative disc disease) Intervertebral disc disorders with radiculopathy, lumbar region Bilateral primary osteoarthritis of knee Gender dysphoria Nicotine dependence, cigarettes, uncomplicated Major depressive disorder, recurrent severe without psychotic features Surgical History History of ureter stent S/P laparoscopic appendectomy (04/19/20) History of endometrial biopsy (04/13/20) benign endocervical epithelium Hx of foot surgery Family History Mother Diabetes Sister Cancer ovarian Other Dementia Heart disease Hypertension Psychiatric illness Denies family history of CAD (coronary artery disease) Clotting disorder Hyperlipidemia Chronic kidney disease (CKD) Anesthesia complication Bleeding disorder Lung disease Stroke Social History Smoking and tobacco/nicotine status: current every day tobacco/nicotine user cigarettes Packs smoked per day: 1 Alcohol intake: current Alcohol intake frequency: other Alcohol type: beer and hard liquor Substance/Drug Use: former Date of last use: 2017 Lives independently: Yes Household members: other Details: partner and her mom Marital status: Single Number of children: 0 Current occupational status: disabled Current gender identity: Male and Other Gender Identity Comment: Goes by Saul, considering formal transition Special hero needs: No Agree to transfusion: Yes Physical Exam Const: COMMON NORMALS: alert HENMT: COMMON NORMALS: normocephalic HEAD & SCALP: normocephalic Neck/C-Spine: COMMON NORMALS: full ROM Resp: COMMON NORMALS: normal respiratory effort Cardio: COMMON NORMALS: regular rate RATE: regular rate Back/Pelvis: LUMBAR SPINE/LOWER BACK: Yes paraspinal muscle tenderness Extremity: COMMON NORMALS: full ROM Neuro: SENSORIUM/ORIENTATION: Yes alert Skin: COMMON NORMALS: turgor normal GENERAL SKIN EXAM: turgor normal Course Vital Signs: Vital signs: Vital Signs Temperature 98.4 F 07/24/23 19:12 Pulse Rate 98 07/24/23 19:12 Respiratory Rate 16 07/24/23 19:12 Blood Pressure 159/96 07/24/23 19:12 Pulse Oximetry 91 07/24/23 19:12 Oxygen Delivery Me thod Room Air 07/24/23 19:12 MDM - Extremity (Nontraumatic) Medical Decision Making 42-year-old female comes in with low back pain rating down her left leg and some difficulty urinating. Is a chronic problems for this patient. Patient is recently found out that she lost her insurance and has been stranded at the hospital not being able to find a ride back to her home. On exam patient has some muscle pain and tenderness to the left lower paraspinous muscles. Patient moves all extremities well. Patient is able to ambulate with an antalgic gait. Parental diagnosis intervertebral disc disease, facet arthritis, sciatica, lumbar strain, urinary tract infection. Urinalysis had a large amount of white blood cells but was also contaminated with skin cells. Will go ahead and cover with Macrobid which was susceptible to E. coli in her urine with last growth. Patient is to continue medications as prescribed for back pain. Follow-up with primary care return to ED for new concerns. Lab Data Laboratory Results Urine Color Dark yellow (Yellow) 07/24/23 19:46 Urine Appearance Sl cloudy (CLEAR) A 07/24/23 19:46 Urine pH 5 (5-7) 07/24/23 19:46 Ur Specific [place] 1.030 (1.005-1.030) 07/24/23 19:46 Urine Protein 1+ (Negative) H 07/24/23 19:46 Urine Glucose (UA) Norm (Normal) 07/24/23 19:46 Urine Ketones 2+ (Negative) H 07/24/23 19:46 Urine Blood 2+ (Negative) H 07/24/23 19:46 Urine Nitrate Negative (Negative) 07/24/23 19:46 Urine Bilirubin 1+ (Negative) H 07/24/23 19:46 Urine Urobilinogen 4 mg/dL (Negative) H 07/24/23 19:46 Ur Leukocyte Esterase 2+ (Negative) H 07/24/23 19:46 Urine RBC 15-25 /hpf (0-2) H 07/24/23 19:46 Urine WBC 40-55 /hpf (0-5) H 07/24/23 19:46 Ur Squamous Epith Cells 25-40 /hpf (0-5) H 07/24/23 19:46 Amorphous Sediment Not Reportable 07/24/23 19:46 Urine Bacteria 2+ /hpf (NONE) H 07/24/23 19:46 Urine Mucus 3+ /hpf 07/24/23 19:46 No radiology studies performed this visit Discharge Plan Discharge Patient Disposition: Home Clinical Impression: UTI (urinary tract infection) due to Enterococcus Low back pain Qualifiers: Chronicity: acute Back pain laterality: right Sciatica presence: with sciatica Sciatica laterality: sciatica laterality unspecified Qualified Code(s): M54.40 - Lumbago with sciatica, unspecified side Condition: Stable Prescriptions: New Macrobid 100 mg capsule 100 mg PO BID 5 Days Qty: 10 0RF Rx Instructions: must administer with a meal/food No Action naproxen [Naprosyn] 500 mg tablet 500 mg PO BID PRN (Reason: pain) Qty: 120 1RF buspirone 10 mg tablet 10 mg PO BID Qty: 60 1RF prednisone 20 mg tablet 40 mg PO DAILY 5 Days Qty: 10 0RF paroxetine HCl 30 mg tablet 30 mg PO BEDTIME Qty: 30 2RF trazodone 150 mg tablet 600 mg PO BEDTIME 30 Days Qty: 120 2RF albuterol sulfate 90 mcg/actuation HFA aerosol inhaler 1 - 2 puff INHALATION Q4H PRN (Reason: Shortness Of Breath) Qty: 8.5 1RF buprenorphine-naloxone 8-2 mg tablet, sublingual 1 tab sublingual BID Qty: 45 0RF gabapentin 600 mg tablet 1,200 mg PO TID 30 Days Qty: 180 0RF tizanidine 4 mg tablet See Rx Instructions .ROUTE .COMPLEX Qty: 60 0RF Dose Instruction: TAKE ONE TABLET BY MOUTH EVERY 8 HOURS NEEDED FOR PAIN Rx Instructions: TAKE ONE TABLET BY MOUTH EVERY 8 HOURS NEEDED FOR PAIN methocarbamol 750 mg tablet 750 mg PO Q6H PRN (Reason: spasms) Qty: 20 0RF Naprosyn 500 mg tablet 500 mg PO BID PRN (Reason: pain) Qty: 20 0RF acetaminophen 500 mg Tablet 1,500 mg PO Q6H PRN (Reason: Pain) montelukast [Singulair] 10 mg tablet 10 mg PO BEDTIME Discharge Orders: Discharge ED (Routine); Ordered 07/24/23 Ordered By: Sukhi Vigil Referrals: Willard Ham MD [Primary Care Provider] - Discharge Activity: Increase activity as tolerated Patient Instructions: Back Pain (ED) Activity Restrictions/Additional Instructions: Encourage plenty of fluids. Activity as tolerated. Follow-up with primary care for further instructions. Coding Level of Care Code ED Pin Feather Machine Operator for Milagro Lao
[2023-07-24] MEDS: morphine 4 mg/mL SDV 1 mL IM (19:45)
[2023-07-24 20:09] LABS: Add Urine Microscopic? YES; Bilirubin Urine 1+ (Negative); Blood Urine 2+ (Negative); Glucose Urine UA Norm (Normal); Ketones Urine 2+ (Negative); Leukocyte Esterase Urine 2+ (Negative); Nitrate Urine Negative (Negative); Protein Urine 1+ (Negative); Urine Color Dark Yellow (Yellow); Urobilinogen Urine 4 mg/dL (Negative); pH Urine 5 (5-7)
[2023-07-24 20:11] LABS: Mucus Urine 3+ /hpf; RBC Urine 15-25 /hpf (0-2); Squamous Epithelial Cell Urine 25-40 /hpf (0-5); WBC Urine 40-55 /hpf (0-5)
[2023-07-24 20:12] LABS: Bacteria Urine 2+ /hpf
[2023-07-24 20:13] LABS: Add Urine Culture? Yes
[2023-07-24] MEDS: nitrofurantoin SR (BID) 100 mg Capsule PO (20:28)
[2023-07-24 20:35] VITALS: BP 145/88; PULSE 88; RESP 20; O2SAT 94
== END 2023-07-24 20:37 | disposition home or self-care (01) ==
PROVIDERS: Emergency Provider Nurse Practitioner Family; PCP Family Medicine
DX: M54.40 Lumbago with sciatica, unspecified side (principal); N39.0 Urinary tract infection, site not specified; B95.2 Enterococcus as the cause of diseases classified elsewhere; F17.210 Nicotine dependence, cigarettes, uncomplicated; I10 Essential (primary) hypertension; E11.9 Type 2 diabetes mellitus without complications
CPT/HCPCS: 81001; 87086; 96372; 99284; J2270

== ENCOUNTER 2023-08-12 00:10 | Inpatient (IN) | payer MEDICAID, SELFPAY ==
[2023-08-12 00:11] VITALS: BP 176/125; PULSE 106; RESP 18; TEMP 36.6; O2SAT 97; BMI 43.9
--- NOTE | 2023-08-12 00:28 | PC.NURSE ---
Patient stripped of street clothes and placed in paper scrubs. All jewelry and belongings removed. Pt placed in cleared psych room with PSA present.
[2023-08-12 00:46] LABS: Basophils % 0.1 %; Eosinophils # 0.2 10^3/uL (0.0-0.8); Eosinophils % 2.5 %; Hematocrit 45.9 % (36-47); Lymphocytes # 1.5 10^3/uL (0.8-4.8); Mean Corpuscular HGB Conc 32.7 g/dL (30-55); Mean Corpuscular Hemoglobin 28.2 pg (27-33); Mean Corpuscular Volume 86.3 fl (85-98); Mean Platelet Volume 10.8 fL (7.4-10.4); Monocytes # 0.5 10^3/uL (0.2-0.9); Monocytes % 6.1 %; Neutrophils # 5.13 10^3/uL (1.8-7.7); Nucleated Red Blood Cells % 0 %; Platelet Count 276 10^3/cmm (157-399); Red Blood Count 5.32 10^6/uL (3.85-5.65); Red Cell Distribution Width 14.7 % (12.1-15.1); White Blood Count 7.33 10^3/uL (3.29-11.43)
--- NOTE | 2023-08-12 00:46 | ED.C_ITS ---
HPI - Psych 2 General: Chief Complaint: Psychiatric Symptoms Stated Complaint: SI Time Seen by Provider: 08/12/23 00:12 History of Present Illness: Patient presents to the ER by EMS for suicidal ideation. Patient said the house she was stating that she was asked to leave. Patient says she is lost everything that she is ever had within the last month including her dog. Patient says she had made threats to kill herself. Patient says she just wants to go and jump off a bridge and . Patient admits not taking her medicines consistently for least the last 1 to 2 weeks. Patient has been to our crisis center before and is willing to go once medically cleared. Review of Systems 2 General: Reports: 10 or more systems reviewed and unremarkable except in HPI and below PFSH ED 2 PFSH: Medical History Psychiatric care Opiate abuse, episodic Methamphetamine dependence, episodic Pyuria Morbid obesity with BMI of 50.0-59.9, adult Fatty infiltration of liver Abnormal uterine bleeding (AUB) Urinary incontinence Asthma Benign essential HTN Uncontrolled type 2 diabetes mellitus, without long-term current use of insulin Hypothyroidism DDD (degenerative disc disease) Intervertebral disc disorders with radiculopathy, lumbar region Bilateral primary osteoarthritis of knee Gender dysphoria Nicotine dependence, cigarettes, uncomplicated Major depressive disorder, recurrent severe without psychotic features Surgical History History of ureter stent S/P laparoscopic appendectomy (04/19/20) History of endometrial biopsy (04/13/20) benign endocervical epithelium Hx of foot surgery Family History Mother Diabetes Sister Cancer ovarian Other Dementia Heart disease Hypertension Psychiatric illness Denies family history of CAD (coronary artery disease) Clotting disorder Hyperlipidemia Chronic kidney disease (CKD) Anesthesia complication Bleeding disorder Lung disease Stroke Social History Smoking and tobacco/nicotine status: current every day tobacco/nicotine user cigarettes Packs smoked per day: 1 Alcohol intake: current Alcohol intake frequency: other Alcohol type: beer and hard liquor Substance/Drug Use: former Date of last use: 2017 Lives independently: Yes Household members: other Details: partner and her mom Marital status: Single Number of children: 0 Current occupational status: disabled Current gender identity: Male and Other Gender Identity Comment: Goes by Saul, considering formal transition Special hero needs: No Agree to transfusion: Yes Physical Exam 2 Const: COMMON NORMALS: no acute distress, average body habitus, patient oriented x3, no limitations, healthy appearing, alert and well nourished HENMT: COMMON NORMALS: normocephalic, atraumatic, hearing grossly normal bilaterally, external ears normal, EAC's normal, Normal external nose present, moist oral mucous membranes and oropharynx normal HEAD & SCALP: normocephalic and atraumatic NOSE: Normal external nose present EXTERNAL EAR: Yes external ears normal EXTERNAL AUDITORY CANAL: EAC's normal Neck/C-Spine: COMMON NORMALS: no JVD Resp: COMMON NORMALS: normal respiratory effort, No retractions, No use of accessory muscles and clear to auscultation bilaterally AUSCULTATION: clear to auscultation bilaterally Cardio: COMMON NORMALS: no JVD, regular rate, regular rhythm, S1 normal heart sound present, S2 normal heart sound present, No gallops present (Cardio), No clicks present (Cardio), No murmurs present (Cardio) and No rub (Cardio) R ATE: regular rate RHYTHM: regular rhythm HEART SOUNDS: S1 normal heart sound present and S2 normal heart sound present GI: COMMON NORMALS: Normal to inspection, nondistended, normoactive bowel sounds present, Soft to palpation, non-tender, No hepatosplenomegaly present and no masses PALPATION: Yes Soft to palpation and Yes No hepatosplenomegaly present Neuro: COMMON NORMALS: patient oriented x3 SENSORIUM/ORIENTATION: Yes alert Course 2 Vital Signs: Vital signs: Vital Signs Temperature 97.9 F 08/12/23 00:11 Pulse Rate 106 H 08/12/23 00:11 Respiratory Rate 18 08/12/23 00:11 Blood Pressure 176/125 08/12/23 00:11 Pulse Oximetry 97 08/12/23 00:11 Oxygen Delivery Me thod Room Air 08/12/23 00:11 MDM - Psych Medical Decision Making Patient presents to the ER with suicidal ideation with plan. Patient was worked up in normal psychiatric fashion for medical clearance. Once obtained Dr. Pineda was consulted who agreed to place the patient in [facility] for further evaluation and treatment. Differential Diagnosis Likely suicidal ideation and depression Medical Records I reviewed the patient's medical records. Lab Data I reviewed the patient's lab results. 08/12/23 00:35 08/12/23 00:35 Laboratory Results WBC 7.33 10^3/uL (3.29-11.43) 08/12/23 00:35 RBC 5.32 10^6/uL (3.85-5.65) 08/12/23 00:35 Hgb 15.00 g/dL (11.27-16.99) 08/12/23 00:35 Hct 45.9 % (36-47) 08/12/23 00:35 MCV 86.3 fl (85-98) 08/12/23 00:35 MCH 28.2 pg (27-33) 08/12/23 00:35 MCHC 32.7 g/dL (30-55) 08/12/23 00:35 RDW 14.7 % (12.1-15.1) 08/12/23 00:35 Plt Count 276 10^3/cmm (157-399) 08/12/23 00:35 MPV 10.8 fL (7.4-10.4) H 08/12/23 00:35 Neut % (Auto) 70.0 % 08/12/23 00:35 Lymph % (Auto) 21.0 % 08/12/23 00:35 [place] % (Auto) 6.1 % 08/12/23 00:35 Eos % (Auto) 2.5 % 08/12/23 00:35 Baso % (Auto) 0.1 % 08/12/23 00:35 Neut # (Auto) 5.13 10^3/uL (1.8-7.7) 08/12/23 00:35 Lymph # (Auto) 1.5 10^3/uL (0.8-4.8) 08/12/23 00:35 [place] # (Auto) 0.5 10^3/uL (0.2-0.9) 08/12/23 00:35 Eos # (Auto) 0.2 10^3/uL (0.0-0.8) 08/12/23 00:35 Baso # (Auto) 0.0 10^3/uL (0.0-0.1) 08/12/23 00:35 Nucleated RBC % (auto) 0 % 08/12/23 00:35 Nucleated RBCs # 0.0 /100WBC 08/12/23 00:35 Sodium 140 mmol/L (136-145) 08/12/23 00:35 Potassium 3.8 mmol/L (3.5-5.1) 08/12/23 00:35 Chloride 106 mmol/L (98-107) 08/12/23 00:35 Carbon Dioxide 23 mmol/L (22-29) 08/12/23 00:35 Anion Gap 14.8 (5-19) 08/12/23 00:35 BUN 12 mg/dL (6-20) 08/12/23 00:35 Creatinine 0.7 mg/dL (0.5-0.9) 08/12/23 00:35 GFR Calculation 92.2 mL/min (90-130) 08/12/23 00:35 Glucose 118 mg/dL (65-115) H 08/12/23 00:35 Calculated Osmolality 291 mOsm/kg (285-295) 08/12/23 00:35 Calcium 9.0 mg/dL (8.5-10.5) 08/12/23 00:35 Total Bilirubin 0.4 mg/dL (0.15-1.2) 08/12/23 00:35 AST 13 U/L (0-32) 08/12/23 00:35 ALT 11 U/L (0-33) 08/12/23 00:35 Alkaline Phosphatase 82 U/L (35-105) 08/12/23 00:35 Total Protein 7.6 g/dL (6.6-8.7) 08/12/23 00:35 Albumin 4.0 g/dL (3.5-5.2) 08/12/23 00:35 Globulin 3.6 g/dL (1.3-4.6) 08/12/23 00:35 Salicylates < 0.3 mg/dL (3-10) L 08/12/23 00:35 Acetaminophen < 5.0 ug/mL (10-30) L 08/12/23 00:35 Ethyl Alcohol < 10 mg/dL (0-10) 08/12/23 00:35 No radiology studies performed this visit Discharge Plan Discharge Patient Disposition: Admitted As Inpatient Clinical Impression: Suicidal ideation Condition: Stable Coding Level of Care Code ED Meat Soaker for Milagro Lao
[2023-08-12] MEDS: LORazepam 2 mg/mL INJ 10 mL MDV 1 MG IM (00:56)
[2023-08-12 01:03] LABS: Alanine Aminotransferase 11 U/L (0-33); Alkaline Phosphatase 82 U/L (35-105); Aspartate Amino Transferase 13 U/L (0-32); Blood Urea Nitrogen 12 mg/dL (6-20); Carbon Dioxide 23 mmol/L (22-29); Chloride 106 mmol/L (98-107); Globulin 3.6 g/dL (1.3-4.6); Glomerular Filtration Rate 92.2 mL/min (90-130); Glucose 118 mg/dL (65-115); Osmolality Calculated 291 mOsm/kg (285-295); Sodium 140 mmol/L (136-145); Total Bilirubin 0.4 mg/dL (0.15-1.2); Total Protein 7.6 g/dL (6.6-8.7)
[2023-08-12 01:38] LABS: Acetaminophen < 5.0 ug/mL (10-30); Alcohol Level < 10 mg/dL (0-10); Salicylate < 0.3 mg/dL (3-10)
[2023-08-12 01:39] LABS: Anion Gap 14.8 (5-19); Potassium 3.8 mmol/L (3.5-5.1)
[2023-08-12 02:44] VITALS: BP 136/72; PULSE 87; RESP 16; O2SAT 94
[2023-08-12 02:53] VITALS: BP 157/104; PULSE 83; RESP 20; TEMP 36.7; O2SAT 98
[2023-08-12 06:00] VITALS: BP 160/93; PULSE 68; RESP 16; TEMP 36.4; O2SAT 95
[2023-08-12] MEDS: OLANZapine 5 mg ODT PO (12:57)
[2023-08-12 14:00] VITALS: BP 130/78; PULSE 81; RESP 16; TEMP 36.9; O2SAT 96
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
[2023-08-12] MEDS: PARoxetine 20 mg Tablet PO (16:09)
[2023-08-12 16:25] LABS: Add Urine Microscopic? NO; Charge for UA Resulting for Rev
[2023-08-12 16:30] LABS: Bilirubin Urine Neg (Negative); Blood Urine Neg (Negative); Glucose Urine UA Norm (Normal); Ketones Urine Negative (Negative); Leukocyte Esterase Urine Negative (Negative); Nitrate Urine Negative (Negative); Protein Urine Neg (Negative); Urine Appearance Clear (CLEAR); Urine Color Yellow (Yellow); Urobilinogen Urine 4 mg/dL (Negative); pH Urine 6 (5-7)
[2023-08-12 16:46] LABS: Amphetamines Screen Urine Negative (Negative); Barbiturates Screen Urine Negative (Negative); Benzodiazepines Screen Urine Positive (Negative); Cocaine Screen Urine Negative (Negative); Opiate Screen Urine Negative (Negative); PCP Screen Urine Negative (Negative); THC Screen Urine Positive (Negative)
[2023-08-12] MEDS: buprenorphine-naloxone 4-1 mg Film 1 EACH SUBLINGUAL (18:17)
[2023-08-12 20:01] VITALS: BP 129/77; PULSE 77; RESP 16; O2SAT 97
[2023-08-12] MEDS: trazodone 50 mg Tablet PO (21:38)
--- NOTE | 2023-08-12 22:12 | PC.NURSE ---
PATIENT UP TO DESK FOR NIGHT MEDS. PATIENT EDUCATED THAT DOCTOR HAS NOT ORDERED ANYTHING FOR BEDTIME, HOWEVER WE ARE ABLE TO GIVE HER TRAZODONE 50MG FOR SLEEP. WHEN PATIENT LEARNED THE DOSE OF TRAZODONE WAS 50MG AT BEDTIME WITH AN ADDITIONAL DOSE AVAILABLE AFTER 1 HOUR OF NO REST, AND NOT HER 600MG PATIENT BECAME AGITATED. PATIENT STARTED SCREAMING, I TAKE 600MG AT HOME, WHY CAN'T I HAVE MY HOME MEDS. WHAT ALL DOES HE HAVE FOR ME? PATIENT EDUCATED ON ALL SCHEDULED MEDICATIONS AND NEEDED MEDICATIONS. PATIENT VOICED THIS IS WHY I WANT TO KILL MYSELF. I CAN'T EVER GET THE MEDS I WANT. THIS IS BULLSHIT. PATIENT WAS ADVISED TO DISCUSS HER MEDICATIONS WITH DR BILL TOMORROW.
[2023-08-12] MEDS: hyDROXYzine 25 mg Capsule 50 MG PO (22:45)
--- NOTE | 2023-08-12 22:47 | PC.NURSE ---
PATIENT UP TO DESK REQUESTING MEDICATION FOR ANXIETY. HYDROXYZINE 50MG OFFERED. PATIENT STATED: THAT'S NOT EVEN GONNA TOUCH ME, BUT I'LL TAKE IT. PATIENT GIVEN SAID MEDICATION. PATIENT ASKED: WHY CAN'T I HAVE MY OWN MEDS? PATIENT EDUCATED THAT ONLY THE DOCTOR CAN SAY WHAT MEDICATION WE CAN GIVE HER. MY DOCTOR DID GIVE ME THOSE MEDICATIONS. PATIENT AGAIN EDUCATED THAT NOW WITH HER BEING HERE, THAT ONLY DOCTOR FLY CAN SAY WHAT SHE CAN HAVE. PATIENT CURSED AT THIS NURSE AND STOPPED TO HER ROOM.
[2023-08-13 00:02] LABS: HCG Qualitative Urine. Negative (Negative)
[2023-08-13] MEDS: trazodone 50 mg Tablet PO ×2 (00:29→20:08)
[2023-08-13 06:00] VITALS: RESP 16
[2023-08-13] MEDS: PARoxetine 20 mg Tablet 30 MG PO (09:12)
[2023-08-13] MEDS: buprenorphine-naloxone 4-1 mg Film 1 EACH SUBLINGUAL ×2 (09:12→19:05)
[2023-08-13 14:00] VITALS: BP 157/109; PULSE 98; RESP 20; TEMP 36.6; O2SAT 98
--- NOTE | 2023-08-13 14:47 | W.PM.NPUPNS ---
Subjective NPU Subjective: 42-year-old female with borderline personality disorder, polysubstance abuse including opiates dependence ,major depressive disorder and generalized anxiety disorder admitted with suicidal ideation. Patient continued to endorse that she was homeless. She continued to be demanding and angry to towards others on the unit. She had reported that she had nowhere to live and had reported that she was not able to attend her appointments at [facility] because she did not have insurance to afford her medications. The patient had reported that she had previously been on Paxil and buspirone. She had endorsed continued feelings of hopelessness. She had reported no recent methamphetamine abuse in several months. She had reported chronic feelings of abandonment. She had reported a lack of social supports.. Mental Status Exam MSE Comments: Obese white female who appeared older than her stated age. She had poor hygiene and was less than friendly and cooperative on interview. Her gait appeared steady and within normal limits. There was evidence of mild to moderate psychomotor agitation. Her speech was normal in regards to rate rhythm and prosody. Her mood was described as depressed. Her affect remained angry and irritable. She endorsed suicidal ideation with plan to jump off a bridge. She denied any homicidal ideation. Central themes in her conversation included feelings of abandonment, feelings of loneliness, Her thought process was linear logical and goal-directed. There was no evidence of delusional thinking. She did not appear to be responding internal stimuli. Her attention span was variable today. Her recent and remote memory were intact. Her insight is feeble. Her judgment is poor. Her impulse control appeared limited. Her intelligence appeared to be within normal range. Vitals/I&O/Wt Last Vital Signs Temp 98.5 F 08/12/23 14:00 Pulse 77 08/12/23 20:01 Resp 16 08/13/23 06:00 BP 129/77 08/12/23 20:01 Pulse Ox 97 08/12/23 20:01 O2 Del Method Room Air 08/12/23 20:01 Weight last 48 hrs Weight 142.882 kg Data NPU 08/12/23 00:35 08/12/23 00:35 A&P Assessment and plan (1) Major depressive disorder, recurrent severe without psychotic features: (2) Opioid use disorder, severe, dependence: (3) Suicidal ideation: (4) Anxiety: (5) Borderline personality disorder: (6) Methamphetamine dependence, episodic: Plan Patient is a 42-year-old white now homeless female with a history of multiple medical problems endorsing suicidal ideation with a history of BPDO, polysubstance abuse, and MDD. She would likely benefit from continued inpatient hospital stay while resuming medications. 1.?Encourage individual, group and milieu therapy. 2.?Recommend sober living treatment at the highest level of care to which the patient is willing to commit. 3.??? Continue q-15 minute checks for safety.? 4. Continue Paxil and Suboxone as prescribed. Will restart buspar as previously prescribed. Involuntary Hold Information 96 Hour Hold: 96 Hour Involuntary Admission: No Attestations NPU Medical Necessity Statement*: Inpatient hospitalization is medically necessary and deemed to be the clinically appropriate intervention at this time.? We will monitor/initiate medications and make changes as indicated.? The patient's ?likely length of stay is 4-7 days. Coding Level of Care Code Acute Code for [facility] Fwd Diagnoses Major depressive disorder, recurrent severe without psychotic features F33.2 Opioid use disorder, severe, dependence F11.20 Suicidal ideation R45.851 Anxiety F41.9 Borderline personality disorder F60.3 Methamphetamine dependence, episodic F15.20
[2023-08-13] MEDS: OLANZapine 5 mg ODT PO (20:08)
[2023-08-13 20:19] VITALS: BP 137/93; PULSE 112; RESP 20; TEMP 36.7; O2SAT 95
[2023-08-13] MEDS: trazodone 100 mg Tablet 400 MG PO (21:27)
[2023-08-14 06:00] VITALS: BP 105/65; PULSE 71; RESP 16; TEMP 36.4; O2SAT 95
[2023-08-14] MEDS: PARoxetine 20 mg Tablet 30 MG PO (09:10)
--- NOTE | 2023-08-14 13:46 | W.PM.NPUPNS ---
Subjective NPU Subjective: Patient presented today reporting that she is feeling okay. Vet then endorsed feeling crappy and being upset that other medications worked restarted. She reports now that she had only been off of her medication for 2 days but then had been talking about not having her insurance and not having access to her medication. We discussed discharge options and she got very frustrated saying that we were just trying to kick her out. But we discussed the fact that the viable options that exist here are either unavailable to her or she is refusing. She reports that she cannot go to a long term because then she will just be reactivating her addiction. She reports that there is a friend who reports a willingness to let her come there but she has not been able to get a hold of the friend. We discussed the fact that we would not be able to allow her to stay until she finds where she would like to be discharged to. She requested that she be given time to get a hold of this friend and we agreed we would take it 1 day at a time. Mental Status Exam MSE Comments: This is an obese versus morbidly obese white female in hospital scrubs with limited grooming and eye contact. No abnormal movements except for significant psychomotor retardation followed by psychomotor agitation during interview as she appeared to be frustrated with a plethora of things that were not being done the way she thinks they should be handled. Mostly uncooperative with exam in moderate to at times significant distress. Speech was increased rate and volume. Mood described as frustrated, affect distressed. Thought process organized. Thought content: Patient endorsed suicidal but denied homicidal ideation, no delusions reported or noted, she denied auditory or visual hallucinations. Attention and concentration appeared intact and memory seemed unreliable but not were formally tested. Alert and oriented x3. Insight, judgment and impulse control are limited versus impaired. Vitals/I&O/Wt Last Vital Signs Temp 97.5 F L 08/14/23 06:00 Pulse 71 08/14/23 06:00 Resp 16 08/14/23 06:00 BP 105/65 08/14/23 06:00 Pulse Ox 95 08/14/23 06:00 O2 Del Method Room Air 08/14/23 06:00 Data NPU 08/12/23 00:35 08/12/23 00:35 A&P Assessment and plan (1) Major depressive disorder, recurrent severe without psychotic features: (2) Opioid use disorder, severe, dependence: (3) Suicidal ideation: (4) Anxiety: (5) Borderline personality disorder: (6) Methamphetamine dependence, episodic: Plan Patient is a 42-year-old white now homeless female with a history of multiple medical problems endorsing suicidal ideation with a history of BPDO, polysubstance abuse, and MDD. She would likely benefit from continued inpatient hospital stay while resuming medications. 1.?Encourage individual, group and milieu therapy. 2.?Recommend sober living treatment at the highest level of care to which the patient is willing to commit. 3.??? Continue q-15 minute checks for safety.? 4. Continue Paxil and Suboxone as prescribed. Will restart buspar as previously prescribed. Evaluate remaining medications for restarting. 5. Consider discharge. Involuntary Hold Information 96 Hour Hold: 96 Hour Involuntary Admission: No Attestations NPU Medical Necessity Statement*: Inpatient hospitalization is medically necessary and deemed to be the clinically appropriate intervention at this time.? We will monitor/initiate medications and make changes as indicated.? The patient's ?likely length of stay is 1-3 days. Coding Level of Care Code Acute Code for [facility] Fwd Diagnoses Major depressive disorder, recurrent severe without psychotic features F33.2 Opioid use disorder, severe, dependence F11.20 Suicidal ideation R45.851 Anxiety F41.9 Borderline personality disorder F60.3 Methamphetamine dependence, episodic F15.20
[2023-08-14 14:00] VITALS: BP 121/72; PULSE 69; RESP 16; TEMP 36.6; O2SAT 95
[2023-08-14] MEDS: buprenorphine-naloxone 4-1 mg Film 1 EACH SUBLINGUAL (18:16)
[2023-08-14 20:14] VITALS: BP 144/90; PULSE 93; RESP 18; O2SAT 93
[2023-08-14] MEDS: acetaminophen 325 mg Tablet 650 MG PO (21:03)
[2023-08-14] MEDS: trazodone 100 mg Tablet 400 MG PO (22:08)
[2023-08-15 06:00] VITALS: BP 96/69; PULSE 61; RESP 15; TEMP 36.4; O2SAT 97
[2023-08-15] MEDS: PARoxetine 20 mg Tablet 30 MG PO (08:48)
[2023-08-15] MEDS: gabapentin 400 mg Capsule 1200 MG PO (11:42)
[2023-08-15] MEDS: naproxen 500 mg Tablet PO (11:42)
[2023-08-15 14:00] VITALS: BP 95/59; PULSE 75; RESP 16; TEMP 36.6; O2SAT 96
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
[2023-08-15 14:35] VITALS: BP 96/69; PULSE 61; RESP 15; TEMP 36.4; O2SAT 97
--- NOTE | 2023-08-15 15:59 | PC.NURSE ---
written discharge instruction discussed and left with patient. pt medication from pharmacy delivered and given to pt upon discharge. pt personal belonging returned to patient after pt examed each item. . pt friend here to take home patient.
== END 2023-08-15 16:02 | disposition home or self-care (01) | DRG 885 ==
LOC: ER 00:49 → NP 07:52
PROVIDERS: Admitting Provider Psychiatry & Neurology Psychiatry; Emergency Provider Emergency Medicine; PCP Family Medicine; Visit Provider Psychiatry & Neurology Psychiatry
DX: F33.2 Major depressive disorder, recurrent severe without psychotic features (principal); F11.20 Opioid dependence, uncomplicated; R45.851 Suicidal ideations; Z59.00 Homelessness unspecified; F41.9 Anxiety disorder, unspecified; F60.3 Borderline personality disorder; F17.210 Nicotine dependence, cigarettes, uncomplicated; Z91.141 Patient's other noncompliance with medication regimen due to financial hardship; F19.10 Other psychoactive substance abuse, uncomplicated; T50.916A Underdosing of multiple unspecified drugs, medicaments and biological substances, initial encounter
CPT/HCPCS: 36415; 80053; 80306; 80307; 81003; 81025; 85025; 96372; 97150; 97165; 99285; J0573; J2060

== ENCOUNTER 2023-09-05 12:42 | Emergency (ER) | payer MEDICAID, SELFPAY ==
[2023-09-05 13:08] VITALS: BP 151/97; PULSE 76; RESP 16; TEMP 36.6; O2SAT 92; BMI 41.5
[2023-09-05 13:32] LABS: Add Urine Microscopic? NO; Charge for UA Resulting for Rev
[2023-09-05 13:47] LABS: Bilirubin Urine Neg (Negative); Blood Urine Neg (Negative); Glucose Urine UA Norm (Normal); Ketones Urine Negative (Negative); Leukocyte Esterase Urine Negative (Negative); Nitrate Urine Negative (Negative); Protein Urine Neg (Negative); Sulfosalicylic Acid Urine Negative (Negative); Urine Appearance Clear (CLEAR); Urine Color Yellow (Yellow); Urobilinogen Urine 1 mg/dL (Negative); pH Urine 8 (5-7)
[2023-09-05 15:38] LABS: Basophils % 0.4 %; Eosinophils # 0.2 10^3/uL (0.0-0.8); Eosinophils % 1.9 %; Hematocrit 47.2 % (36-47); Lymphocytes # 1.3 10^3/uL (0.8-4.8); Lymphocytes % 15.7 %; Mean Corpuscular HGB Conc 32.6 g/dL (30-55); Mean Corpuscular Hemoglobin 28.2 pg (27-33); Mean Corpuscular Volume 86.4 fl (85-98); Mean Platelet Volume 9.7 fL (7.4-10.4); Monocytes # 0.3 10^3/uL (0.2-0.9); Monocytes % 3.7 %; Neutrophils # 6.46 10^3/uL (1.8-7.7); Neutrophils % 78.1 %; Nucleated Red Blood Cells % 0 %; Platelet Count 311 10^3/cmm (157-399); Red Blood Count 5.46 10^6/uL (3.85-5.65); Red Cell Distribution Width 14.6 % (12.1-15.1); White Blood Count 8.28 10^3/uL (3.29-11.43)
[2023-09-05 16:09] LABS: HCG, Serum Qual Negative (Negative)
--- NOTE | 2023-09-05 16:36 | USR_ITS ---
PROCEDURE INFORMATION: Exam: US Abdomen, Limited; Right Upper Quadrant Exam date and time: 09/05/2023 5:05 PM Age: 42 years old Clinical indication: Abdominal pain; Generalized; Additional info: Ruq pain TECHNIQUE: Imaging protocol: Real time ultrasound of the abdomen with image documentation. Limited exam focused on the right upper quadrant. COMPARISON: CT kidney stone [id number] 12/01/2022 11:38 AM FINDINGS: Liver: Unremarkable. Gallbladder: No gallstones. No gallbladder wall thickening or pericholecystic fluid. Negative sonographic Banerjee's sign, as per the performing disaster recovery coordinator. Biliary ducts: Normal. No stones. No dilation. Pancreas: Unremarkable as visualized. Right kidney: Atrophic. No mass. No definite stones. No hydronephrosis. US/US gall bladder [id number] IMPRESSION: No acute sonographic findings.
--- NOTE | 2023-09-05 16:37 | ED_ITS ---
HPI - Abdominal Pain 2 General: Chief Complaint: Abdominal Pain Stated Complaint: abd pain Time Seen by Provider: 09/05/23 16:31 Source: patient Mode of arrival: ambulatory Limitations: no limitations History of Present Illness: 42-year-old female states she been havin g right upper quadrant abdominal pain over the last 3 days mainly with eating. States pain sharp in nature currently pains a 2 out of 10 she denies any vomiting denies any chest pain. Associated Symptoms: Denies chills, diarrhea, fever(s), nausea and vomiting Review of Systems 2 Const: Denies: fever(s), chills, body aches or change in appetite ENMT: Denies: throat pain or dental pain Card: Denies: chest pain Resp: Denies: dyspnea GI: Reports: abdominal pain; Denies: nausea, vomiting or diarrhea Musc: Denies: neck pain or back pain Skin/Breast: Denies: rash Neuro: Denies: headache(s) PFSH ED 2 PFSH: Medical History Psychiatric care Opiate abuse, episodic Methamphetamine dependence, episodic Pyuria Morbid obesity with BMI of 50.0-59.9, adult Fatty infiltration of liver Abnormal uterine bleeding (AUB) Urinary incontinence Asthma Benign essential HTN Uncontrolled type 2 diabetes mellitus, without long-term current use of insulin Hypothyroidism DDD (degenerative disc disease) Intervertebral disc disorders with radiculopathy, lumbar region Bilateral primary osteoarthritis of knee Gender dysphoria Nicotine dependence, cigarettes, uncomplicated Major depressive disorder, recurrent severe without psychotic features Surgical History History of ureter stent S/P laparoscopic appendectomy (04/19/20) History of endometrial biopsy (04/13/20) benign endocervical epithelium Hx of foot surgery Family History Mother Diabetes Sister Cancer ovarian Other Dementia Heart disease Hypertension Psychiatric illness Denies family history of CAD (coronary artery disease) Clotting disorder Hyperlipidemia Chronic kidney disease (CKD) Anesthesia complication Bleeding disorder Lung disease Stroke Social History Smoking and tobacco/nicotine status: current every day tobacco/nicotine user cigarettes Packs smoked per day: 1 Alcohol intake: current Alcohol intake frequency: other Alcohol type: beer and hard liquor Substance/Drug Use: former Date of last use: 2017 Lives independently: Yes Household members: other Details: partner and her mom Marital status: Single Number of children: 0 Current occupational status: disabled Current gender identity: Male and Other Gender Identity Comment: Goes by Saul, considering formal transition Special hero needs: No Agree to transfusion: Yes Physical Exam 2 Const: COMMON NORMALS: no acute distress, patient oriented x3 and healthy appearing HENMT: COMMON NORMALS: normocephalic and atraumatic HEAD & SCALP: n ormocephalic and atraumatic Eye: COMMON NORMALS: conjunctivae normal CONJUNCTIVA: Yes conjunctivae normal Neck/C-Spine: COMMON NORMALS: full ROM and supple Chest: COMMONS NORMALS: normal inspection of the chest Resp: COMMON NORMALS: normal respiratory effort Cardio: COMMON NORMALS: regular rate, regular rhythm and No murmurs present (Cardio) RATE: regular rate RHYTHM: regular rhythm GI: COMMON NORMALS: Normal to inspection, nondistended, normoactive bowel sounds present, Soft to palpation, non-tender and no masses PALPATION: Yes Soft to palpation Extremity: COMMON NORMALS: normal to inspection and full ROM Neuro: COMMON NORMALS: patient oriented x3, moves all extremities and no focal motor deficits Psych: COMMON NORMALS: mental status grossly normal, Normal thought process present and cooperative THOUGHT PROCESS: Normal thought process present Skin: COMMON NORMALS: no rashes or lesions noted and no wounds GENERAL SKIN EXAM: no rashes or lesions noted Course 2 Vital Signs: Vital signs: Vital Signs Temperature 97.9 F 09/05/23 13:08 Pulse Rate 76 09/05/23 13:08 Respiratory Rate 16 09/05/23 13:08 Blood Pressure 151/97 09/05/23 13:08 Pulse Oximetry 92 09/05/23 13:08 Oxygen Delivery Me thod Room Air 09/05/23 13:08 MDM - Abdominal Pain Medical Decision Making Patient presents here with abdominal pain exam here is benign blood work is normal ultrasound showed no acute findings patient stable for discharge we will prescribe her Reglan for home she is to follow-up with her PCP and return if worsening Medical Records I reviewed the patient's medical records. Lab Data I reviewed the patient's lab results. 09/05/23 15:09 09/05/23 15:09 Labs/Radiology: Laboratory Results WBC 8.28 10^3/uL (3.29-11.43) 09/05/23 15:09 RBC 5.46 10^6/uL (3.85-5.65) 09/05/23 15:09 Hgb 15.40 g/dL (11.27-16.99) 09/05/23 15:09 Hct 47.2 % (36-47) H 09/05/23 15:09 MCV 86.4 fl (85-98) 09/05/23 15:09 MCH 28.2 pg (27-33) 09/05/23 15:09 MCHC 32.6 g/dL (30-55) 09/05/23 15:09 RDW 14.6 % (12.1-15.1) 09/05/23 15:09 Plt Count 311 10^3/cmm (157-399) 09/05/23 15:09 MPV 9.7 fL (7.4-10.4) 09/05/23 15:09 Neut % (Auto) 78.1 % 09/05/23 15:09 Lymph % (Auto) 15.7 % 09/05/23 15:09 [facility] % (Auto) 3.7 % 09/05/23 15:09 Eos % (Auto) 1.9 % 09/05/23 15:09 Baso % (Auto) 0.4 % 09/05/23 15:09 Neut # (Auto) 6.46 10^3/uL (1.8-7.7) 09/05/23 15:09 Lymph # (Auto) 1.3 10^3/uL (0.8-4.8) 09/05/23 15:09 [facility] # (Auto) 0.3 10^3/uL (0.2-0.9) 09/05/23 15:09 Eos # (Auto) 0.2 10^3/uL (0.0-0.8) 09/05/23 15:09 Baso # (Auto) 0.0 10^3/uL (0.0-0.1) 09/05/23 15:09 Nucleated RBC % (auto) 0 % 09/05/23 15:09 Nucleated RBCs # 0.0 /100WBC 09/05/23 15:09 Sodium 136 mmol/L (136-145) 09/05/23 15:09 Potassium 4.4 mmol/L (3.5-5.1) 09/05/23 15:09 Chloride 99 mmol/L (98-107) 09/05/23 15:09 Carbon Dioxide 25 mmol/L (22-29) 09/05/23 15:09 Anion Gap 16.4 (5-19) 09/05/23 15:09 BUN 11 mg/dL (6-20) 09/05/23 15:09 Creatinine 1.0 mg/dL (0.5-0.9) H 09/05/23 15:09 GFR Calculation 61.1 mL/min (90-130) L 09/05/23 15:09 Glucose 92 mg/dL (65-115) 09/05/23 15:09 Calculated Osmolality 281 mOsm/kg (285-295) L 09/05/23 15:09 Calcium 9.2 mg/dL (8.5-10.5) 09/05/23 15:09 Total Bilirubin 0.5 mg/dL (0.15-1.2) 09/05/23 15:09 AST 12 U/L (0-32) 09/05/23 15:09 ALT 7 U/L (0-33) 09/05/23 15:09 Alkaline Phosphatase 101 U/L (35-105) 09/05/23 15:09 Total Protein 7.9 g/dL (6.6-8.7) 09/05/23 15:09 Albumin 4.4 g/dL (3.5-5.2) 09/05/23 15:09 Globulin 3.5 g/dL (1.3-4.6) 09/05/23 15:09 Lipase 15 U/L (13-60) 09/05/23 15:09 HCG, Qual Negative (Negative) 09/05/23 15:09 Urine Color Yellow (Yellow) 09/05/23 13:12 Urine Appearance Clear (CLEAR) 09/05/23 13:12 Urine pH 8 (5-7) H 09/05/23 13:12 Ur Specific [place] 1.010 (1.005-1.030) 09/05/23 13:12 Urine Protein Neg (Negative) 09/05/23 13:12 Urine Glucose (UA) Norm (Normal) 09/05/23 13:12 Urine Ketones Negative (Negative) 09/05/23 13:12 Urine Blood Neg (Negative) 09/05/23 13:12 Urine Nitrate Negative (Negative) 09/05/23 13:12 Urine Bilirubin Neg (Negative) 09/05/23 13:12 Prot Sulfosalicylic Acd Negative (Negative) 09/05/23 13:12 Urine Urobilinogen 1 mg/dL (Negative) H 09/05/23 13:12 Ur Leukocyte Esterase Negative (Negative) 09/05/23 13:12 All radiology interpretation(s) finalized by discharge Discharge Plan Discharge Patient Disposition: Home Clinical Impression: Abdominal pain Condition: Stable Prescriptions: New Reglan 10 mg tablet 10 mg PO Q6H PRN (Reason: nausea and vomiting) Qty: 20 0RF No Action trazodone 300 mg Tablet Extended Release 24 Hr 600 mg PO naproxen 500 PO BID Suboxone 8-2 mg Film 1 film BUCCAL BID trazodone 150 mg Tablet 600 mg PO BEDTIME 30 Days Qty: 120 1RF gabapentin 600 mg Tablet 1,200 mg PO TID 30 Days Qty: 180 1RF tizanidine 4 mg Capsule 4 mg PO Q8H PRN (Reason: Spasms) 30 Days Qty: 90 1RF paroxetine HCl tablet 30 mg PO BEDTIME 30 Days Qty: 30 1RF Discharge Orders: Discharge ED (Routine); Ordered 09/05/23 Ordered By: Nolan Rodriguez Referrals: Willard Ham MD [Primary Care Provider] - 1-3 days Discharge Diet: Advance as tolerated Discharge Activity: Resume usual activity Patient Instructions: Abdominal Pain (ED) Coding Level of Care Code ED Volunteer Recruiter for Lashong Shilo
[2023-09-05 16:41] VITALS: BP 139/79; PULSE 82; RESP 18; O2SAT 95
[2023-09-05] MEDS: metoclopramide 5 mg/mL SDV 2 mL 10 MG IM (16:44)
[2023-09-05] MEDS: diphenhydrAMINE 50 mg/mL SDV 1mL IM (16:44)
[2023-09-05 16:56] LABS: Alanine Aminotransferase 7 U/L (0-33); Albumin Level 4.4 g/dL (3.5-5.2); Alkaline Phosphatase 101 U/L (35-105); Anion Gap 16.4 (5-19); Aspartate Amino Transferase 12 U/L (0-32); Blood Urea Nitrogen 11 mg/dL (6-20); Calcium 9.2 mg/dL (8.5-10.5); Carbon Dioxide 25 mmol/L (22-29); Chloride 99 mmol/L (98-107); Globulin 3.5 g/dL (1.3-4.6); Glomerular Filtration Rate 61.1 mL/min (90-130); Glucose 92 mg/dL (65-115); Osmolality Calculated 281 mOsm/kg (285-295); Potassium 4.4 mmol/L (3.5-5.1); Sodium 136 mmol/L (136-145); Total Bilirubin 0.5 mg/dL (0.15-1.2); Total Protein 7.9 g/dL (6.6-8.7)
[2023-09-05 17:25] LABS: Lipase 15 U/L (13-60)
[2023-09-05 18:19] VITALS: PULSE 89; RESP 16; O2SAT 95
== END 2023-09-05 18:20 | disposition home or self-care (01) ==
PROVIDERS: Emergency Provider Emergency Medicine; PCP Family Medicine
DX: R10.11 Right upper quadrant pain (principal); F17.210 Nicotine dependence, cigarettes, uncomplicated; I10 Essential (primary) hypertension; E11.9 Type 2 diabetes mellitus without complications
CPT/HCPCS: 36415; 76705; 80053; 81003; 83690; 84703; 85025; 96372; 99284; J1200; J2765

== ENCOUNTER 2023-09-09 17:37 | Emergency (ER) | payer MEDICAID, SELFPAY ==
--- NOTE | 2023-09-09 17:39 | XRR_ITS ---
PROCEDURE INFORMATION: Exam: XR Left Knee Exam date and time: 09/09/2023 6:05 PM Age: 42 years old Clinical indication: Injury or trauma; Fall; Blunt trauma; Knee; Left TECHNIQUE: Imaging protocol: Radiologic exam of the left knee. Views: 3 views. COMPARISON: CR XR knees AP WB w BI lmt ORTH 03/17/2023 2:15 PM FINDINGS: Bones/joints: There is a slight valgus alignment deformity. Alignment is otherwise intact. There is no evidence of acute fracture or dislocation. There are severe tricompartmental degenerative changes without joint effusion. Soft tissues: Normal. XR/XR knee LT 3V* [id number] IMPRESSION: No evidence of acute fracture or dislocation.
[2023-09-09 17:51] VITALS: BP 139/84; PULSE 99; RESP 15; TEMP 36.8; O2SAT 95
--- NOTE | 2023-09-09 18:37 | W.ED.EXTPRO ---
HPI - Extremity Problem General: Chief complaint: Extremity Injury, Lower Stated complaint: fall, left knee pain Time Seen by Provider: 09/09/23 17:58 Source: patient Mode of arrival: ambulatory History of Present Illness: 42-year-old female presents with left knee pain that worsened after a fall 2 days ago. Patient reports that she does have osteoarthritis in her knees. States that she is able to bear weight, but does have increased discomfort with activity to the left knee. She reports that she has previously seen orthopedics and had an injection in the knee, but has not been back. Patient also reports that she lost her medications. She is requesting refill of Suboxone and BuSpar. Associated symptoms: Deny chest pain or fever(s) Review of Systems Const: Denies: fever(s) or chills Card: Denies: chest pain Resp: Denies: dyspnea Musc: Reports: extremity pain (left knee) [facility] ED PFSH: Medical History Psychiatric care Opiate abuse, episodic Methamphetamine dependence, episodic Pyuria Morbid obesity with BMI of 50.0-59.9, adult Fatty infiltration of liver Abnormal uterine bleeding (AUB) Urinary incontinence Asthma Benign essential HTN Uncontrolled type 2 diabetes mellitus, without long-term current use of insulin Hypothyroidism DDD (degenerative disc disease) Intervertebral disc disorders with radiculopathy, lumbar region Bilateral primary osteoarthritis of knee Gender dysphoria Nicotine dependence, cigarettes, uncomplicated Major depressive disorder, recurrent severe without psychotic features Surgical History History of ureter stent S/P laparoscopic appendectomy (04/19/20) History of endometrial biopsy (04/13/20) benign endocervical epithelium Hx of foot surgery Family History Mother Diabetes Sister Cancer ovarian Other Dementia Heart disease Hypertension Psychiatric illness Denies family history of CAD (coronary artery disease) Clotting disorder Hyperlipidemia Chronic kidney disease (CKD) Anesthesia complication Bleeding disorder Lung disease Stroke Social History Smoking and tobacco/nicotine status: current every day tobacco/nicotine user cigarettes Packs smoked per day: 1 Alcohol intake: current Alcohol intake frequency: other Alcohol type: beer and hard liquor Substance/Drug Use: former Date of last use: 2017 Lives independently: Yes Household members: other Details: partner and her mom Marital status: Single Number of children: 0 Current occupational status: disabled Current gender identity: Male and Other Gender Identity Comment: Goes by Saul, considering formal transition Special hero needs: No Agree to transfusion: Yes Physical Exam Const: COMMON NORMALS: no acute distress, patient oriented x3 and alert ORIENTATION/CONSCIOUSNESS: Yes awake OTHER: Patient is sitting upright on the stretcher in no acute distress. She is able to give history with no difficulty. She is able to make position changes unassisted. No family is at bedside HENMT: COMMON NORMALS: normocephalic HEAD & SCALP: normocephalic Neck/C-Spine: COMMON NORMALS: full ROM Chest: CHEST: Yes Symmetrical chest wall rise Resp: COMMON NORMALS: normal respiratory effort Extremity: LEFT LOWER EXTREMITY: Yes knee joint Left knee: Yes palpation (tenderness across inferior knee) and Yes ROM (decreased flexion) OTHER: No tenderness to palpation to the patellar tendon, medial joint line, lateral joint line. No effusion noted. No significant ecchymosis noted Neuro: COMMON NORMALS: patient oriented x3 SENSORIUM/ORIENTATION: Yes alert Psych: COMMON NORMALS: speech normal SPEECH: Yes normal speech Course Vital Signs: Vital signs: Vital Signs Temperature 98.2 F 09/09/23 17:51 Pulse Rate 99 09/09/23 17:51 Respiratory Rate 15 09/09/23 17:51 Blood Pressure 139/84 09/09/23 17:51 Pulse Oximetry 95 09/09/23 17:51 Oxygen Delivery Me thod Room Air 09/09/23 17:51 MDM - Extremity (Nontraumatic) Medical Decision Making 42yo female here for acute on chronic left knee pain following a reported fall 2 days ago. Patient also stated that she lost her bag of medications and is requesting refill of BuSpar and Suboxone. Patient reports that she does have osteoarthritis of the left knee. She states she has not taking anything at home for her knee as she does not have any medications nor any money. Patient denies any other injury or concern at this time. Patient is nontoxic in appearance. Vital signs are stable. Discussed with patient that I would not be able to refill her Suboxone, but could cover a few days of the BuSpar. Patient declined stating that if she could not get her Suboxone then she did not need anything. Differential diagnoses include fracture, sprain, contusion, strain Discussed with patient that her knee x-ray was unremarkable. Patient did receive ketorolac and orphenadrine while in the emergency department to help with her right knee pain. Elastic wrap was applied. Prescription of ketorolac was sent to patient's pharmacy. Upon discharge, patient became verbally upset with the nurse as she was not getting hydrocodone. Discussed with patient that she does not have a fracture nor does she have a significant injury, so we would not be prescribing hydrocodone at this time. Discussed with patient the need to follow-up with her doctor for reevaluation of her knee as well as to discuss her medication needs. Recommend she return to the emergency department if any further injury, rapid worsening symptoms, and as needed. Patient does state understanding and had no further questions at this time. Medical Records I reviewed the patient's medical records. Lab Data Radiology Impressions Knee X-Ray 09/09/23 17:39 IMPRESSION: No evidence of acute fracture or dislocation. All radiology interpretation(s) finalized by discharge Discharge Plan Discharge Patient Disposition: Home Clinical Impression: Left knee pain Qualifiers: Chronicity: chronic Qualified Code(s): M25.562 - Pain in left knee Condition: Stable Prescriptions: New ketorolac 10 mg tablet 10 mg PO Q6H PRN (Reason: pain) Qty: 20 0RF No Action trazodone 300 mg Tablet Extended Release 24 Hr 600 mg PO naproxen 500 PO BID Suboxone 8-2 mg Film 1 film BUCCAL BID trazodone 150 mg Tablet 600 mg PO BEDTIME 30 Days Qty: 120 1RF gabapentin 600 mg Tablet 1,200 mg PO TID 30 Days Qty: 180 1RF tizanidine 4 mg Capsule 4 mg PO Q8H PRN (Reason: Spasms) 30 Days Qty: 90 1RF paroxetine HCl tablet 30 mg PO BEDTIME 30 Days Qty: 30 1RF Reglan 10 mg tablet 10 mg PO Q6H PRN (Reason: nausea and vomiting) Qty: 20 0RF Discharge Orders: Discharge ED (Routine); Ordered 09/09/23 Ordered By: Dirk Alvarado Referrals: Willard Ham MD [Primary Care Provider] - Discharge Diet: Usual diet Discharge Activity: Increase activity as tolerated Patient Instructions: Knee Pain (ED) Activity Restrictions/Additional Instructions: Use the provided elastic wrap to support the knee for the next several days. Slowly increase your activity level as tolerated Ketorolac has been sent to your pharmacy to help with the pain. Please do not take ibuprofen or naproxen while taking this medication Follow-up with your doctor as soon as possible for recheck of the knee as well as to discuss your medication needs Return to the emergency department if any rapid worsening symptoms and as needed Coding Level of Care Code ED Certified Procedural Coder for Milagro Lao
[2023-09-09] MEDS: orphenadrine 30 mg/mL Inj 2 mL 60 MG IM (19:01)
[2023-09-09] MEDS: ketorolac 30 mg/mL INJ IM (19:03)
[2023-09-09 19:25] VITALS: BP 157/103; PULSE 98; O2SAT 96
== END 2023-09-09 19:28 | disposition home or self-care (01) ==
PROVIDERS: Emergency Provider Nurse Practitioner; PCP Family Medicine
DX: M25.562 Pain in left knee (principal); F17.210 Nicotine dependence, cigarettes, uncomplicated; I10 Essential (primary) hypertension; E11.9 Type 2 diabetes mellitus without complications
CPT/HCPCS: 73562; 96372; 99284; J1885; J2360

== ENCOUNTER 2023-09-12 22:04 | Inpatient (IN) | payer SELFPAY ==
[2023-09-12 22:06] VITALS: BP 123/82; PULSE 97; RESP 20; TEMP 36.6; O2SAT 94; BMI 41.1
--- NOTE | 2023-09-12 22:46 | W.ED.PSYCHS ---
HPI - Psych General: Chief Complaint: Psychiatric Symptoms Stated Complaint: SI/ETOH Time Seen by Provider: 09/12/23 22:21 History of Present Illness: 42-year-old female presents to the emergency department via EMS personnel. Patient states she took a total of 28 pills of gabapentin. She states they were 600 mg tablets. She states that she also drank 1/5 of alcohol tonight. She states she is very sad and wants to kill herself because her dog , she is homeless and because she caused the woman that she loves to have a seizure. She states she has attempted to harm herself previously and has been admitted to [facility] neuropsychiatric unit previously. Associated symptoms: Reports depression and suicidal ideation; Deny auditory hallucinations, visual hallucinations or homicidal ideation Review of Systems General: Reports: 10 or more systems reviewed and unremarkable except in HPI and below Psych: Reports: depression, hopelessness and suicidal ideation; Denies: visual hallucinations, auditory hallucinations or homicidal ideation [facility] ED PFSH: Medical History Psychiatric care Opiate abuse, episodic Methamphetamine dependence, episodic Pyuria Morbid obesity with BMI of 50.0-59.9, adult Fatty infiltration of liver Abnormal uterine bleeding (AUB) Urinary incontinence Asthma Benign essential HTN Uncontrolled type 2 diabetes mellitus, without long-term current use of insulin Hypothyroidism DDD (degenerative disc disease) Intervertebral disc disorders with radiculopathy, lumbar region Bilateral primary osteoarthritis of knee Gender dysphoria Nicotine dependence, cigarettes, uncomplicated Major depressive disorder, recurrent severe without psychotic features Surgical History History of ureter stent S/P laparoscopic appendectomy (04/19/20) History of endometrial biopsy (04/13/20) benign endocervical epithelium Hx of foot surgery Family History Mother Diabetes Sister Cancer ovarian Other Dementia Heart disease Hypertension Psychiatric illness Denies family history of CAD (coronary artery disease) Clotting disorder Hyperlipidemia Chronic kidney disease (CKD) Anesthesia complication Bleeding disorder Lung disease Stroke Social History Smoking and tobacco/nicotine status: current every day tobacco/nicotine user cigarettes Packs smoked per day: 1 Alcohol intake: current Alcohol intake frequency: other Alcohol type: beer and hard liquor Substance/Drug Use: former Date of last use: 2017 Lives independently: Yes Household members: other Details: partner and her mom Marital status: Single Number of children: 0 Current occupational status: disabled Current gender identity: Male and Other Gender Identity Comment: Goes by Saul, considering formal transition Special hero needs: No Agree to transfusion: Yes Physical Exam Narrative: EXAM NARRATIVE: Constitutional: the patient appears well nourished and of normal development. Vital signs as documented. No acute distress at present. Alert and oriented-to person, place, time and situation. Intoxicated and intermittently tearful. Head, eyes, ears, nose, mouth, throat: Normocephalic, atraumatic. Pupils-equal, round, reactive to light. No scleral icterus. Normal-appearing external ears. Normal appearing nasal turbinates, no drainage. No obvious oral lesions, posterior oropharynx without erythema or exudates. Neck: Supple, trachea is midline, no lymphadenopathy, no jugular venous distension, thyromegaly, or carotid bruits. Carotid upstrokes are brisk bilaterally. Lungs: clear to auscultation to all lung keith. Symmetrical rise and fall of chest, no obvious signs of increased work of breathing at present. Cardiac: Regular rate and rhythm, positive S1, S2. No murmurs, rubs or gallops that I can appreciate Abdomen: Soft, non-tender to palpation, normal active bowel sounds to all quadrants. No palpable masses, no organomegaly and abdominal bruits. Extremities: 2+ pulses in the upper extremities that are equal bilaterally, 2+ pulses in the lower extremities that are equal bilaterally. Non-edematous. Moves all extremities well, sensation to all extremities are noted. Skin: Warm, dry, intact. Psych: Depressed, tearful, impaired judgment, alcohol intoxication. Course Vital Signs: Vital signs: Vital Signs Temperature 97.8 F 09/12/23 22:06 Pulse Rate 97 09/12/23 22:06 Respiratory Rate 20 H 09/12/23 22:06 Blood Pressure 123/82 09/12/23 22:06 Pulse Oximetry 94 09/12/23 22:06 Oxygen Delivery Me thod Room Air 09/12/23 22:06 MDM - Psych Medical Decision Making Physical exam completed and documented we will obtain psychiatric medical clearance laboratory and contact the psychiatrist on-call for admission. Medical Records I reviewed the patient's medical records. Lab Data I reviewed the patient's lab results. 09/12/23 22:54 09/12/23 22:54 Laboratory Results WBC 8.90 10^3/uL (3.29-11.43) 09/12/23 22:54 RBC 5.11 10^6/uL (3.85-5.65) 09/12/23 22:54 Hgb 14.30 g/dL (11.27-16.99) 09/12/23 22:54 Hct 43.8 % (36-47) 09/12/23 22:54 MCV 85.7 fl (85-98) 09/12/23 22:54 MCH 28.0 pg (27-33) 09/12/23 22:54 MCHC 32.6 g/dL (30-55) 09/12/23 22:54 RDW 14.8 % (12.1-15.1) 09/12/23 22:54 Plt Count 277 10^3/cmm (157-399) 09/12/23 22:54 MPV 10.2 fL (7.4-10.4) 09/12/23 22:54 Neut % (Auto) 70.6 % 09/12/23 22:54 Lymph % (Auto) 19.2 % 09/12/23 22:54 [place] % (Auto) 4.3 % 09/12/23 22:54 Eos % (Auto) 5.6 % 09/12/23 22:54 Baso % (Auto) 0.2 % 09/12/23 22:54 Neut # (Auto) 6.28 10^3/uL (1.8-7.7) 09/12/23 22:54 Lymph # (Auto) 1.7 10^3/uL (0.8-4.8) 09/12/23 22:54 [place] # (Auto) 0.4 10^3/uL (0.2-0.9) 09/12/23 22:54 Eos # (Auto) 0.5 10^3/uL (0.0-0.8) 09/12/23 22:54 Baso # (Auto) 0.0 10^3/uL (0.0-0.1) 09/12/23 22:54 Nucleated RBC % (auto) 0 % 09/12/23 22:54 Nucleated RBCs # 0.0 /100WBC 09/12/23 22:54 Sodium 139 mmol/L (136-145) 09/12/23 22:54 Potassium 3.3 mmol/L (3.5-5.1) L 09/12/23 22:54 Chloride 104 mmol/L (98-107) 09/12/23 22:54 Carbon Dioxide 23 mmol/L (22-29) 09/12/23 22:54 Anion Gap 15.3 (5-19) 09/12/23 22:54 BUN 18 mg/dL (6-20) 09/12/23 22:54 Creatinine 1.0 mg/dL (0.5-0.9) H 09/12/23 22:54 GFR Calculation 61.1 mL/min (90-130) L 09/12/23 22:54 Glucose 137 mg/dL (65-115) H 09/12/23 22:54 Calculated Osmolality 292 mOsm/kg (285-295) 09/12/23 22:54 Calcium 8.6 mg/dL (8.5-10.5) 09/12/23 22:54 Total Bilirubin 0.2 mg/dL (0.15-1.2) 09/12/23 22:54 AST 11 U/L (0-32) 09/12/23 22:54 ALT 10 U/L (0-33) 09/12/23 22:54 Alkaline Phosphatase 95 U/L (35-105) 09/12/23 22:54 Total Protein 7.8 g/dL (6.6-8.7) 09/12/23 22:54 Albumin 4.0 g/dL (3.5-5.2) 09/12/23 22:54 Globulin 3.8 g/dL (1.3-4.6) 09/12/23 22:54 TSH 1.63 uIU/mL (0.27-4.20) 09/12/23 22:54 Salicylates < 0.3 mg/dL (3-10) L 09/12/23 22:54 Acetaminophen < 5.0 ug/mL (10-30) L 09/12/23 22:54 Ethyl Alcohol 129 mg/dL (0-10) H 09/12/23 22:54 All radiology interpretation(s) finalized by discharge Discharge Plan Discharge Patient Disposition: Admitted As Inpatient Clinical Impression: Suicidal ideation Condition: Stable Prescriptions: No Action gabapentin 600 mg tablet 1,200 mg PO TID 30 Days Qty: 180 1RF trazodone 300 mg Tablet Extended Release 24 Hr 600 mg PO naproxen 500 PO BID Suboxone 8-2 mg Film 1 film BUCCAL BID trazodone 150 mg Tablet 600 mg PO BEDTIME 30 Days Qty: 120 1RF tizanidine 4 mg Capsule 4 mg PO Q8H PRN (Reason: Spasms) 30 Days Qty: 90 1RF paroxetine HCl tablet 30 mg PO BEDTIME 30 Days Qty: 30 1RF Reglan 10 mg tablet 10 mg PO Q6H PRN (Reason: nausea and vomiting) Qty: 20 0RF ketorolac 10 mg tablet 10 mg PO Q6H PRN (Reason: pain) Qty: 20 0RF Referrals: Willard Ham MD [Primary Care Provider] - Coding Level of Care Code ED Track Sweeper for Milagro Lao
[2023-09-12 22:58] LABS: Basophils % 0.2 %; Eosinophils # 0.5 10^3/uL (0.0-0.8); Eosinophils % 5.6 %; Hematocrit 43.8 % (36-47); Lymphocytes # 1.7 10^3/uL (0.8-4.8); Lymphocytes % 19.2 %; Mean Corpuscular HGB Conc 32.6 g/dL (30-55); Mean Corpuscular Volume 85.7 fl (85-98); Mean Platelet Volume 10.2 fL (7.4-10.4); Monocytes # 0.4 10^3/uL (0.2-0.9); Monocytes % 4.3 %; Neutrophils # 6.28 10^3/uL (1.8-7.7); Neutrophils % 70.6 %; Nucleated Red Blood Cells % 0 %; Platelet Count 277 10^3/cmm (157-399); Red Blood Count 5.11 10^6/uL (3.85-5.65); Red Cell Distribution Width 14.8 % (12.1-15.1)
[2023-09-12 23:26] LABS: Acetaminophen < 5.0 ug/mL (10-30); Alanine Aminotransferase 10 U/L (0-33); Alcohol Level 129 mg/dL (0-10); Alkaline Phosphatase 95 U/L (35-105); Anion Gap 15.3 (5-19); Aspartate Amino Transferase 11 U/L (0-32); Blood Urea Nitrogen 18 mg/dL (6-20); Calcium 8.6 mg/dL (8.5-10.5); Carbon Dioxide 23 mmol/L (22-29); Chloride 104 mmol/L (98-107); Globulin 3.8 g/dL (1.3-4.6); Glomerular Filtration Rate 61.1 mL/min (90-130); Glucose 137 mg/dL (65-115); Osmolality Calculated 292 mOsm/kg (285-295); Potassium 3.3 mmol/L (3.5-5.1); Salicylate < 0.3 mg/dL (3-10); Sodium 139 mmol/L (136-145); Thyroid Stimulating Hormone 1.63 uIU/mL (0.27-4.20); Total Bilirubin 0.2 mg/dL (0.15-1.2); Total Protein 7.8 g/dL (6.6-8.7)
[2023-09-13 04:59] VITALS: BP 113/68; PULSE 70; RESP 16; TEMP 36.4; O2SAT 95
[2023-09-13 05:03] VITALS: BP 113/68; PULSE 70; RESP 16; O2SAT 95
[2023-09-13 05:16] VITALS: BP 137/96; PULSE 86; RESP 18; O2SAT 98
--- NOTE | 2023-09-13 05:46 | PC.ADMIT ---
[address] [address] Admission Note: The patient,Lorie Chacon,42 y/o, was given written information regarding hospital policies, unit procedures and contact persons. Patient's smoking status: current every day smoker. 1-2 PACKS A DAY Vital Signs - 8 hr 09/12/23 22:06 09/13/23 04:59 09/13/23 05:03 Temperature 97.8 F 97.6 F Pulse Rate 97 70 70 Respiratory Rate 20 H 16 16 Blood Pressure 123/82 113/68 113/68 Pulse Oximetry 94 95 95 Oxygen Delivery Method Room Air Room Air 09/13/23 05:35 Temperature Pulse Rate Respiratory Rate Blood Pressure Pulse Oximetry Oxygen Delivery Method Room Air PT WAS ADMITTED FROM [facility] ER VIA WHEELCHAIR,SECURITY AND ER STAFF AT 0515 AM. PT IS VOLUNTARY WITH AFFIDAVIT. PT STATES SHE IS HERE DUE TO DRUNK AND SUICIDE. RN ATTEMPTED TO GIVE PT URINE CUP TO URINATE FOR UDS AND HCG TEST, PT BECAME UPSET AND YELLING LEAVE ME ALONE, YOU ALREADY MISSED IT. PT IS DEMANDING AND RUDE TO STAFF. ONCE DRESSED OUT PT STARTED TO DEMAND SNACKS, CHOCOLATE MILK, JUICE AND JUST WHATEVER YOU HAVE. PT WAS GIVEN MULTIPLE SNACKS THEN REACHED INTO SNACK BOX AND GRABBED SEVERAL MORE. PT WAS DIRECTED TO TAKE ONE SNACK AT A TIME. PT HAS BEEN TO THE NPU A FEW MONTHS AGO. PT HAS NOT BEEN TAKING HER MEDICATIONS, STATING HER PILLS WERE STOLEN, THEN SHE GAVE THEM AWAY. PT CURRENTLY DENIES PAIN. DENIES SI/HI AND AVH AT THIS TIME. WANDED PER PROTOCOL. SKIN ASSESSMENT COMPLETED AND REVEALS SMALL BRUISES TO ABDOMEN. ORIENTATED TO UNIT, RULES AND GUIDELINES.. VERBALIZED UNDERSTANDING. ALL QUESTIONS ANSWERED AND SUPPORT VOICED
[2023-09-13 06:00] VITALS: BP 137/96; PULSE 86; RESP 18; O2SAT 98
[2023-09-13] MEDS: nicotine 4 mg lozenge MUCOUS MEM (06:11)
[2023-09-13] MEDS: multivitamin therapeutic Tablet 1 TAB PO (08:45)
[2023-09-13] MEDS: folic acid 1 mg Tablet PO (08:45)
[2023-09-13] MEDS: thiamine 100 mg Tablet PO (08:46)
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
[2023-09-13 13:48] LABS: Add Urine Culture? No; Add Urine Microscopic? YES; Bacteria Urine TRACE /hpf; Bilirubin Urine Neg (Negative); Blood Urine Neg (Negative); Glucose Urine UA Norm (Normal); Ketones Urine Negative (Negative); Leukocyte Esterase Urine Trace (Negative); Nitrate Urine Negative (Negative); Protein Urine Neg (Negative); Squamous Epithelial Cell Urine RARE /hpf (0-5); Urine Appearance Clear (CLEAR); Urine Color Straw (Yellow); Urobilinogen Urine Norm (Negative); WBC Urine 0-4 /hpf (0-5); pH Urine 5 (5-7)
[2023-09-13 13:54] LABS: Amphetamines Screen Urine Negative (Negative); Barbiturates Screen Urine Negative (Negative); Benzodiazepines Screen Urine Negative (Negative); Cocaine Screen Urine Negative (Negative); Opiate Screen Urine Negative (Negative); PCP Screen Urine Negative (Negative); THC Screen Urine Positive (Negative)
[2023-09-13 14:00] VITALS: BP 154/81; PULSE 86; RESP 14; TEMP 36.3; O2SAT 96
[2023-09-13] MEDS: buprenorphine-naloxone 4-1 mg Film 2 EACH SUBLINGUAL (18:33)
[2023-09-13 19:58] VITALS: BP 163/103; PULSE 88; RESP 17; TEMP 36.4; O2SAT 97
[2023-09-13] MEDS: trazodone 150 mg Tablet 600 MG PO (20:12)
[2023-09-13] MEDS: PARoxetine 20 mg Tablet 30 MG PO (20:13)
[2023-09-13] MEDS: naproxen 500 mg Tablet PO (20:13)
[2023-09-13] MEDS: tizanidine 4 mg Tablet PO (20:13)
[2023-09-14 00:40] LABS: HCG Qualitative Urine. Negative (Negative)
[2023-09-14 06:00] VITALS: BP 106/71; PULSE 67; RESP 15; TEMP 36.8; O2SAT 98
[2023-09-14 08:36] LABS: Basophils % 0.3 %; Eosinophils # 0.4 10^3/uL (0.0-0.8); Eosinophils % 5.7 %; Hematocrit 41.7 % (36-47); Lymphocytes # 1.9 10^3/uL (0.8-4.8); Lymphocytes % 27.4 %; Mean Corpuscular HGB Conc 32.4 g/dL (30-55); Mean Corpuscular Hemoglobin 28.7 pg (27-33); Mean Corpuscular Volume 88.5 fl (85-98); Mean Platelet Volume 10.5 fL (7.4-10.4); Monocytes # 0.4 10^3/uL (0.2-0.9); Monocytes % 6.3 %; Neutrophils # 4.11 10^3/uL (1.8-7.7); Nucleated Red Blood Cells % 0 %; Platelet Count 209 10^3/cmm (157-399); Red Blood Count 4.71 10^6/uL (3.85-5.65); Red Cell Distribution Width 15.1 % (12.1-15.1); White Blood Count 6.85 10^3/uL (3.29-11.43)
--- NOTE | 2023-09-14 08:37 | PC.NURSE ---
pt refusing to take morning medication at this time. pt states she is wanting to go back to sleep and doesnt take medication before sleeping in after breakfast. informed pt that 10 am is the latest that i can give her medication and I would wake her up one time for her medicationbefore 10.
[2023-09-14 08:58] LABS: Alanine Aminotransferase 8 U/L (0-33); Albumin Level 3.5 g/dL (3.5-5.2); Alkaline Phosphatase 82 U/L (35-105); Aspartate Amino Transferase 10 U/L (0-32); Blood Urea Nitrogen 24 mg/dL (6-20); Calcium 8.4 mg/dL (8.5-10.5); Carbon Dioxide 29 mmol/L (22-29); Chloride 103 mmol/L (98-107); Creatinine Clr Calc Pharmacy 144.1788; Globulin 3.1 g/dL (1.3-4.6); Glucose 87 mg/dL (65-115); Osmolality Calculated 289 mOsm/kg (285-295); Sodium 138 mmol/L (136-145); Total Bilirubin 0.2 mg/dL (0.15-1.2); Total Protein 6.6 g/dL (6.6-8.7)
[2023-09-14] MEDS: folic acid 1 mg Tablet PO (09:51)
[2023-09-14] MEDS: multivitamin therapeutic Tablet 1 TAB PO (09:51)
[2023-09-14] MEDS: thiamine 100 mg Tablet PO (09:51)
[2023-09-14] MEDS: buprenorphine-naloxone 4-1 mg Film 2 EACH SUBLINGUAL ×2 (09:53→18:22)
[2023-09-14] MEDS: nicotine 21 mg Patch 1 PATCH TRANSDERMA (10:43)
--- NOTE | 2023-09-14 11:15 | P.NPUPN_ITS ---
Subjective NPU 2 Subjective: Patient presented today reporting that she is feeling better. She is reporting wanting to leave [facility] and no later than Friday. We discussed the issues we want worked out before leaving surrounding Suboxone etc. She denied any side effects to her medications. Mental Status Exam 2 MSE Comments: This is an obese versus morbidly obese white female in hospital scrubs with limited grooming and eye contact. No abnormal movements. Mostly cooperative with exam in mild distress. Speech was increased rate and volume. Mood described as better, affect appeared mostly euthymic. Thought process organized. Thought content: Patient denied suicidal or homicidal ideation, no delusions reported or noted, she denied auditory or visual hallucinations. Attention and concentration appeared intact and memory seemed unreliable but not were formally tested. Alert and oriented x3. Insight, judgment and impulse control are limited versus impaired. Vitals/I&O/Wt Last Vital Signs Temp 98.2 F 09/14/23 06:00 Pulse 67 09/14/23 06:00 Resp 15 09/14/23 06:00 BP 106/71 09/14/23 06:00 Pulse Ox 98 09/14/23 06:00 O2 Del Method Room Air 09/14/23 06:00 Weight last 48 hrs Weight 140.523 kg Weight 133.81 kg Data NPU 09/14/23 08:05 09/14/23 08:05 A&P Assessment and plan (1) Major depressive disorder, recurrent severe without psychotic features: (2) Opioid use disorder, severe, dependence: (3) Suicidal ideation: (4) Anxiety: (5) Borderline personality disorder: (6) Methamphetamine dependence, episodic: (7) Malingering: (8) Alcohol use: (9) Alcohol withdrawal: (10) Alcoholic intoxication: Plan Patient is a 42-year-old white now homeless female with a history of multiple medical problems endorsing suicidal ideation with a history of BPDO, polysubstance abuse, and MDD presenting with reports of significant stressors leading to suicidal thoughts or behaviors however she later recanted this and seem to be very focused on having medications restarted specifically Suboxone. 1.?Encourage individual, group and milieu therapy. 2.?Recommend sober living treatment at the highest level of care to which the patient is willing to commit. 3.??? Continue q-15 minute checks for safety.? 4. Continue current medication. We will restart medications as appropriate with increasing Paxil to 40 mg daily. Will restart Suboxone but unclear if we will continue after discharge. 5. Significant concerns for malingering. Involuntary Hold Information 2 96 Hour Hold: 96 Hour Involuntary Admission: No Attestations NPU 2 Medical Necessity Statement*: Inpatient hospitalization is medically necessary and deemed to be the clinically appropriate intervention at this time.? We will monitor/initiate medications and make changes as indicated.? Likely length of stay 1-2 days. Coding Level of Care Code Acute Code for g Fwd Diagnoses Major depressive disorder, recurrent severe without psychotic features F33.2 Opioid use disorder, severe, dependence F11.20 Suicidal ideation R45.851 Anxiety F41.9 Borderline personality disorder F60.3 Methamphetamine dependence, episodic F15.20 Malingering Z76.5 Alcohol use Z78.9 Alcohol withdrawal F10.939 Alcoholic intoxication F10.929
[2023-09-14 14:00] VITALS: BP 133/88; PULSE 80; RESP 13; O2SAT 96
[2023-09-14] MEDS: nicotine 4 mg lozenge MUCOUS MEM (20:06)
[2023-09-14 20:21] VITALS: BP 114/70; PULSE 84; RESP 18; TEMP 36.4; O2SAT 95
[2023-09-14] MEDS: naproxen 500 mg Tablet PO (21:40)
[2023-09-14] MEDS: trazodone 150 mg Tablet 600 MG PO (21:41)
[2023-09-14] MEDS: PARoxetine 20 mg Tablet 30 MG PO (21:41)
[2023-09-14] MEDS: tizanidine 4 mg Tablet PO (21:41)
[2023-09-14] MEDS: nicotine 2 mg Gum BUCCAL (22:15)
[2023-09-15 06:00] VITALS: BP 120/73; PULSE 81; RESP 16; O2SAT 98
[2023-09-15] MEDS: buprenorphine-naloxone 4-1 mg Film 2 EACH SUBLINGUAL (08:39)
[2023-09-15] MEDS: multivitamin therapeutic Tablet 1 TAB PO (08:39)
[2023-09-15] MEDS: thiamine 100 mg Tablet PO (08:39)
[2023-09-15] MEDS: tizanidine 4 mg Tablet PO (08:39)
[2023-09-15] MEDS: folic acid 1 mg Tablet PO (08:39)
[2023-09-15] MEDS: nicotine 4 mg lozenge MUCOUS MEM (09:10)
[2023-09-15] MEDS: hyDROXYzine 25 mg Capsule 50 MG PO (09:14)
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
[2023-09-15 12:00] VITALS: BP 120/73; PULSE 81; RESP 16; O2SAT 98
== END 2023-09-15 12:39 | disposition home or self-care (01) | DRG 918 ==
LOC: ER 09-13 04:32 → NP 09-13 04:41
PROVIDERS: Admitting Provider Psychiatry & Neurology Psychiatry; Emergency Provider Internal Medicine; PCP Family Medicine; Visit Provider Psychiatry & Neurology Psychiatry
DX: T42.6X2A Poisoning by other antiepileptic and sedative-hypnotic drugs, intentional self-harm, initial encounter (principal); Z59.00 Homelessness unspecified; F15.20 Other stimulant dependence, uncomplicated; Z68.41 Body mass index [BMI] 40.0-44.9, adult; F33.2 Major depressive disorder, recurrent severe without psychotic features; F10.129 Alcohol abuse with intoxication, unspecified; F11.10 Opioid abuse, uncomplicated; E66.01 Morbid (severe) obesity due to excess calories; I10 Essential (primary) hypertension; E11.9 Type 2 diabetes mellitus without complications; E03.9 Hypothyroidism, unspecified; F64.0 Transsexualism; F17.210 Nicotine dependence, cigarettes, uncomplicated; F41.9 Anxiety disorder, unspecified; F60.3 Borderline personality disorder; Z76.5 Malingerer [conscious simulation]
CPT/HCPCS: 36415; 80053; 80306; 80307; 81001; 81025; 84443; 85025; 97165; 99285; J0573

== ENCOUNTER 2023-09-19 02:40 | Emergency (ER) | payer SELFPAY ==
[2023-09-19 02:45] VITALS: BP 166/94; PULSE 86; RESP 17; TEMP 37.2; O2SAT 98; BMI 48.8
[2023-09-19 03:07] LABS: HCG Qualitative Urine. Negative (Negative)
[2023-09-19 03:14] LABS: Bilirubin Urine Neg (Negative); Blood Urine 2+ (Negative); Glucose Urine UA Norm (Normal); Ketones Urine Negative (Negative); Nitrate Urine Negative (Negative); Protein Urine Neg (Negative); Urine Appearance Hazy (CLEAR); Urine Color Yellow (Yellow); Urobilinogen Urine Neg (Negative); pH Urine 6 (5-7)
[2023-09-19 03:15] LABS: Add Urine Culture? Yes; Add Urine Microscopic? YES; Bacteria Urine 1+ /hpf; Leukocyte Esterase Urine 2+ (Negative); RBC Urine 0-4 /hpf (0-2); WBC Urine 15-25 /hpf (0-5)
[2023-09-19 03:25] LABS: Amphetamines Screen Urine Negative (Negative); Barbiturates Screen Urine Negative (Negative); Benzodiazepines Screen Urine Negative (Negative); Cocaine Screen Urine Negative (Negative); Opiate Screen Urine Negative (Negative); PCP Screen Urine Negative (Negative); THC Screen Urine Positive (Negative)
--- NOTE | 2023-09-19 03:25 | W.ED.PSYCHS ---
Documented by User: Cristi Das DO 09/19/23 04:21 HPI - Psych General: Chief Complaint: Psychiatric Symptoms Stated Complaint: ETOH, SI Time Seen by Provider: 09/19/23 02:42 History of Present Illness: Patient presents to the ER with with police presents. Patient's intoxicated with alcohol and she made suicidal comments to her family and EMS. Patient is intermittently aggressive. Patient says she wants to take all of her medicine to kill herself. Review of Systems General: Reports: 10 or more systems reviewed and unremarkable except in HPI and below PFSH ED PFSH: Medical History History of attempted suicide Psychiatric care Opiate abuse, episodic Methamphetamine dependence, episodic Pyuria Morbid obesity with BMI of 50.0-59.9, adult Fatty infiltration of liver Abnormal uterine bleeding (AUB) Urinary incontinence Asthma Benign essential HTN Uncontrolled type 2 diabetes mellitus, without long-term current use of insulin Hypothyroidism DDD (degenerative disc disease) Intervertebral disc disorders with radiculopathy, lumbar region Bilateral primary osteoarthritis of knee Gender dysphoria Nicotine dependence, cigarettes, uncomplicated Major depressive disorder, recurrent severe without psychotic features Surgical History History of ureter stent S/P laparoscopic appendectomy (04/19/20) History of endometrial biopsy (04/13/20) benign endocervical epithelium Hx of foot surgery Family History Mother Diabetes Sister Cancer ovarian Other Dementia Heart disease Hypertension Psychiatric illness Denies family history of CAD (coronary artery disease) Clotting disorder Hyperlipidemia Chronic kidney disease (CKD) Anesthesia complication Bleeding disorder Lung disease Stroke Social History Smoking and tobacco/nicotine status: current every day tobacco/nicotine user cigarettes Packs smoked per day: 0.50 Alcohol intake: current Alcohol intake frequency: other Alcohol type: beer and hard liquor Substance/Drug Use: former Date of last use: 2017 Lives independently: Yes Household members: other Details: partner and her mom Marital status: Single Number of children: 0 Current occupational status: disabled Current gender identity: Male and Other Gender Identity Comment: Goes by Saul, considering formal transition Special hero needs: No Agree to transfusion: Yes Physical Exam Const: COMMON NORMALS: no acute distress, average body habitus, patient oriented x3, healthy appearing, alert and well nourished Neck/C-Spine: COMMON NORMALS: no JVD Chest: COMMONS NORMALS: normal inspection of the chest and normal palpation of entire chest wall Resp: COMMON NORMALS: normal respiratory effort, No retractions, No use of accessory muscles and clear to auscultation bilaterally AUSCULTATION: clear to auscultation bilaterally Cardio: COMMON NORMALS: no JVD, regular rate, regular rhythm, S1 normal heart sound present, S2 normal heart sound present, No gallops present (Cardio), No clicks present (Cardio), No murmurs present (Cardio) and No rub (Cardio) RATE: regular rate RHYTHM: regular rhythm HEART SOUNDS: S1 normal heart sound present and S2 normal heart sound present GI: COMMON NORMALS: Normal to inspection, nondistended, normoactive bowel sounds present, Soft to palpation, non-tender, No hepatosplenomegaly present and no masses PALPATION: Yes Soft to palpation and Yes No hepatosplenomegaly present Neuro: COMMON NORMALS: patient oriented x3 SENSORIUM/ORIENTATION: Yes alert Course Vital Signs: Vital signs: Vital Signs Temperature 97.1 F L 09/19/23 12:38 Pulse Rate 89 09/19/23 12:38 Respiratory Rate 17 09/19/23 02:45 Blood Pressure 111/64 09/19/23 12:38 Pulse Oximetry 94 09/19/23 12:38 Oxygen Delivery Me thod Room Air 09/19/23 02:45 MDM - Psych Differential Diagnosis Likely suicidal ideation Medical Records I reviewed the patient's medical records. Lab Data I reviewed the patient's lab results. 09/19/23 03:36 09/19/23 03:36 Laboratory Results WBC 6.05 10^3/uL (3.29-11.43) 09/19/23 03:36 RBC 4.45 10^6/uL (3.85-5.65) 09/19/23 03:36 Hgb 12.90 g/dL (11.27-16.99) 09/19/23 03:36 Hct 40.6 % (36-47) 09/19/23 03:36 MCV 91.2 fl (85-98) 09/19/23 03:36 MCH 29.0 pg (27-33) 09/19/23 03:36 MCHC 31.8 g/dL (30-55) 09/19/23 03:36 RDW 15.6 % (12.1-15.1) H 09/19/23 03:36 Plt Count 225 10^3/cmm (157-399) 09/19/23 03:36 MPV 9.6 fL (7.4-10.4) 09/19/23 03:36 Neut % (Auto) 64.2 % 09/19/23 03:36 Lymph % (Auto) 26.4 % 09/19/23 03:36 [place] % (Auto) 5.0 % 09/19/23 03:36 Eos % (Auto) 3.6 % 09/19/23 03:36 Baso % (Auto) 0.3 % 09/19/23 03:36 Neut # (Auto) 3.88 10^3/uL (1.8-7.7) 09/19/23 03:36 Lymph # (Auto) 1.6 10^3/uL (0.8-4.8) 09/19/23 03:36 [place] # (Auto) 0.3 10^3/uL (0.2-0.9) 09/19/23 03:36 Eos # (Auto) 0.2 10^3/uL (0.0-0.8) 09/19/23 03:36 Baso # (Auto) 0.0 10^3/uL (0.0-0.1) 09/19/23 03:36 Nucleated RBC % (auto) 0 % 09/19/23 03:36 Nucleated RBCs # 0.0 /100WBC 09/19/23 03:36 Sodium 143 mmol/L (136-145) 09/19/23 03:36 Potassium 3.7 mmol/L (3.5-5.1) 09/19/23 03:36 Chloride 105 mmol/L (98-107) 09/19/23 03:36 Carbon Dioxide 29 mmol/L (22-29) 09/19/23 03:36 Anion Gap 12.7 (5-19) 09/19/23 03:36 BUN 12 mg/dL (6-20) 09/19/23 03:36 Creatinine 0.8 mg/dL (0.5-0.9) 09/19/23 03:36 GFR Calculation 79.0 mL/min (90-130) L 09/19/23 03:36 Glucose 141 mg/dL (65-115) H 09/19/23 03:36 Calculated Osmolality 298 mOsm/kg (285-295) H 09/19/23 03:36 Calcium 8.2 mg/dL (8.5-10.5) L 09/19/23 03:36 Total Bilirubin 0.2 mg/dL (0.15-1.2) 09/19/23 03:36 AST 16 U/L (0-32) 09/19/23 03:36 ALT 11 U/L (0-33) 09/19/23 03:36 Alkaline Phosphatase 86 U/L (35-105) 09/19/23 03:36 Total Protein 7.1 g/dL (6.6-8.7) 09/19/23 03:36 Albumin 3.5 g/dL (3.5-5.2) 09/19/23 03:36 Globulin 3.6 g/dL (1.3-4.6) 09/19/23 03:36 HCG, Qual Negative (Negative) 09/19/23 02:50 Urine Color Yellow (Yellow) 09/19/23 02:50 Urine Appearance Hazy (CLEAR) A 09/19/23 02:50 Urine pH 6 (5-7) 09/19/23 02:50 Ur Specific [place] 1.010 (1.005-1.030) 09/19/23 02:50 Urine Protein Neg (Negative) 09/19/23 02:50 Urine Glucose (UA) Norm (Normal) 09/19/23 02:50 Urine Ketones Negative (Negative) 09/19/23 02:50 Urine Blood 2+ (Negative) H 09/19/23 02:50 Urine Nitrate Negative (Negative) 09/19/23 02:50 Urine Bilirubin Neg (Negative) 09/19/23 02:50 Urine Urobilinogen Neg mg/dL (Negative) 09/19/23 02:50 Ur Leukocyte Esterase 2+ (Negative) H 09/19/23 02:50 Urine RBC 0-4 /hpf (0-2) H 09/19/23 02:50 Urine WBC 15-25 /hpf (0-5) H 09/19/23 02:50 Ur Squamous Epith Cells 5-10 /hpf (0-5) H 09/19/23 02:50 Amorphous Sediment Not Reportable 09/19/23 02:50 Urine Bacteria 1+ /hpf (NONE) H 09/19/23 02:50 Salicylates 0.8 mg/dL (3-10) L 09/19/23 03:36 Urine Opiates Screen Negative ng/mL (Negative) 09/19/23 02:50 Acetaminophen < 5.0 ug/mL (10-30) L 09/19/23 03:36 Ur Barbiturates Screen Negative ng/mL (Negative) 09/19/23 02:50 Ur Phencyclidine Scrn Negative ng/mL (Negative) 09/19/23 02:50 Ur Amphetamines Screen Negative ng/mL (Negative) 09/19/23 02:50 U Benzodiazepines Scrn Negative ng/mL (Negative) 09/19/23 02:50 Urine Cocaine Screen Negative ng/mL (Negative) 09/19/23 02:50 U Marijuana (THC) Screen Positive ng/mL (Negative) H 09/19/23 02:50 Ethyl Alcohol 148 mg/dL (0-10) H 09/19/23 03:36 Influenza Type A Ag negative (Negative) 09/19/23 09:28 Influenza Type B Ag negative (Negative) 09/19/23 09:28 SARS-CoV-2 Ag (Rapid) negative (Negative) 09/19/23 09:28 No radiology studies performed this visit Discharge Plan Discharge Patient Disposition: Home Clinical Impression: Alcohol abuse, Depression Condition: Stable Prescriptions: No Action gabapentin 600 mg tablet 600 mg PO TID hydrocodone-acetaminophen 10-325 mg tablet 1 tab PO Q4H PRN (Reason: Pain) Ventolin HFA 90 mcg/actuation HFA aerosol inhaler 1 - 2 puff INHALATION Q4H PRN (Reason: Shortness Of Breath) trazodone 150 mg Tablet 600 mg PO BEDTIME 30 Days Qty: 120 1RF metoclopramide HCl [Reglan] 10 mg tablet 10 mg PO Q6H PRN (Reason: nausea and vomiting) Qty: 20 0RF paroxetine HCl 40 mg tablet 40 mg PO BEDTIME 30 Days Qty: 30 1RF thiamine mononitrate (vit B1) [Vitamin B-1 (mononitrate)] 100 mg Tablet 100 mg PO DAILY 30 Days Qty: 30 1RF tizanidine 4 mg Capsule 4 mg PO Q8H PRN (Reason: Spasms) 15 Days Qty: 45 1RF buprenorphine-naloxone [Suboxone] 8-2 mg Film 1 film BUCCAL BID 7 Days Qty: 14 3RF Lasix 20 mg tablet 20 mg PO DAILY Qty: 5 0RF Discharge Orders: Discharge ED (Routine); Ordered 09/19/23 Ordered By: Azar Valle Referrals: Willard Ham MD [Primary Care Provider] - Discharge Diet: Usual diet Discharge Activity: Increase activity as tolerated Patient Instructions: Alcohol Intoxication (ED), Abuse of Alcohol (ED), Alcohol Dependence (ED), Alcohol Use Disorder (ED), Opioid Safety, Pain Management Activity Restrictions/Additional Instructions: Thank you for choosing [facility] for your healthcare needs today. Please realize this is an emergency room and that we are providing you with a medical screening exam and this may not be complete and all inclusive of all the testing and or work up that you may need to determine your ailment or severity of your illness. It is very important that you follow up as instructed or that you return to the Emergency Department should you have concerns or if your condition changes or worsens in any way. Abstain from alcohol. Recommend you seek treatment for alcohol abuse in an outpatient program such as [facility] or [facility]. Also recommend that you establish at [facility] for assistance with your mental health issues. Sign Out Sign Out Data: Patient Sign Out occurred on 09/19/23 at 06:08. Patient's care was discussed, and care was transferred from Cristi Das DO to Azar Valle DO. Coding Level of Care Code ED Production Team Member for Chg Fwd Documented by User: Azar Valle DO 09/22/23 07:58 HPI - Psych General: Chief Complaint: Psychiatric Symptoms Stated Complaint: ETOH, SI Time Seen by Provider: 09/19/23 02:42 PFSH ED PFSH: Medical History History of attempted suicide Psychiatric care Opiate abuse, episodic Methamphetamine dependence, episodic Pyuria Morbid obesity with BMI of 50.0-59.9, adult Fatty infiltration of liver Abnormal uterine bleeding (AUB) Urinary incontinence Asthma Benign essential HTN Uncontrolled type 2 diabetes mellitus, without long-term current use of insulin Hypothyroidism DDD (degenerative disc disease) Intervertebral disc disorders with radiculopathy, lumbar region Bilateral primary osteoarthritis of knee Gender dysphoria Nicotine dependence, cigarettes, uncomplicated Major depressive disorder, recurrent severe without psychotic features Surgical History History of ureter stent S/P laparoscopic appendectomy (04/19/20) History of endometrial biopsy (04/13/20) benign endocervical epithelium Hx of foot surgery Family History Mother Diabetes Sister Cancer ovarian Other Dementia Heart disease Hypertension Psychiatric illness Denies family history of CAD (coronary artery disease) Clotting disorder Hyperlipidemia Chronic kidney disease (CKD) Anesthesia complication Bleeding disorder Lung disease Stroke Social History Smoking and tobacco/nicotine status: current every day tobacco/nicotine user cigarettes Packs smoked per day: 0.50 Alcohol intake: current Alcohol intake frequency: other Alcohol type: beer and hard liquor Substance/Drug Use: former Date of last use: 2017 Lives independently: Yes Household members: other Details: partner and her mom Marital status: Single Number of children: 0 Current occupational status: disabled Current gender identity: Male and Other Gender Identity Comment: Goes by Saul, considering formal transition Special hero needs: No Agree to transfusion: Yes Course Vital Signs: Vital signs: Vital Signs Temperature 97.1 F L 09/19/23 12:38 Pulse Rate 89 09/19/23 12:38 Respiratory Rate 17 09/19/23 02:45 Blood Pressure 111/64 09/19/23 12:38 Pulse Oximetry 94 09/19/23 12:38 Oxygen Delivery Me thod Room Air 09/19/23 02:45 MDM - Psych Medical Decision Making Care assumed at change of shift labs reviewed patient is mildly intoxicated on arrival. Reevaluated patient she is abrasive and confrontational still claims suicidal ideation. Discussed with on-call psychiatry they do not have any beds available will begin to look for facility to transfer patient to suicidal ideation. Patient complaining of leg pain. Chart reviewed resume regular medications. Patient retractor suicide claims stating she had only made the claim because she has nowhere to go and she wanted to have a place to stay she does not want to be transferred. I discussed with psychiatry on-call. Dr. Cabrera recommends discharge and follow-up with [facility]. Patient reiterates a second time that she had only made the claim of suicidal ideation to facilitate admission because she had nowhere to go if she left here. Lab Data 09/19/23 03:36 09/19/23 03:36 Laboratory Results WBC 6.05 10^3/uL (3.29-11.43) 09/19/23 03:36 RBC 4.45 10^6/uL (3.85-5.65) 09/19/23 03:36 Hgb 12.90 g/dL (11.27-16.99) 09/19/23 03:36 Hct 40.6 % (36-47) 09/19/23 03:36 MCV 91.2 fl (85-98) 09/19/23 03:36 MCH 29.0 pg (27-33) 09/19/23 03:36 MCHC 31.8 g/dL (30-55) 09/19/23 03:36 RDW 15.6 % (12.1-15.1) H 09/19/23 03:36 Plt Count 225 10^3/cmm (157-399) 09/19/23 03:36 MPV 9.6 fL (7.4-10.4) 09/19/23 03:36 Neut % (Auto) 64.2 % 09/19/23 03:36 Lymph % (Auto) 26.4 % 09/19/23 03:36 [place] % (Auto) 5.0 % 09/19/23 03:36 Eos % (Auto) 3.6 % 09/19/23 03:36 Baso % (Auto) 0.3 % 09/19/23 03:36 Neut # (Auto) 3.88 10^3/uL (1.8-7.7) 09/19/23 03:36 Lymph # (Auto) 1.6 10^3/uL (0.8-4.8) 09/19/23 03:36 [place] # (Auto) 0.3 10^3/uL (0.2-0.9) 09/19/23 03:36 Eos # (Auto) 0.2 10^3/uL (0.0-0.8) 09/19/23 03:36 Baso # (Auto) 0.0 10^3/uL (0.0-0.1) 09/19/23 03:36 Nucleated RBC % (auto) 0 % 09/19/23 03:36 Nucleated RBCs # 0.0 /100WBC 09/19/23 03:36 Sodium 143 mmol/L (136-145) 09/19/23 03:36 Potassium 3.7 mmol/L (3.5-5.1) 09/19/23 03:36 Chloride 105 mmol/L (98-107) 09/19/23 03:36 Carbon Dioxide 29 mmol/L (22-29) 09/19/23 03:36 Anion Gap 12.7 (5-19) 09/19/23 03:36 BUN 12 mg/dL (6-20) 09/19/23 03:36 Creatinine 0.8 mg/dL (0.5-0.9) 09/19/23 03:36 GFR Calculation 79.0 mL/min (90-130) L 09/19/23 03:36 Glucose 141 mg/dL (65-115) H 09/19/23 03:36 Calculated Osmolality 298 mOsm/kg (285-295) H 09/19/23 03:36 Calcium 8.2 mg/dL (8.5-10.5) L 09/19/23 03:36 Total Bilirubin 0.2 mg/dL (0.15-1.2) 09/19/23 03:36 AST 16 U/L (0-32) 09/19/23 03:36 ALT 11 U/L (0-33) 09/19/23 03:36 Alkaline Phosphatase 86 U/L (35-105) 09/19/23 03:36 Total Protein 7.1 g/dL (6.6-8.7) 09/19/23 03:36 Albumin 3.5 g/dL (3.5-5.2) 09/19/23 03:36 Globulin 3.6 g/dL (1.3-4.6) 09/19/23 03:36 HCG, Qual Negative (Negative) 09/19/23 02:50 Urine Color Yellow (Yellow) 09/19/23 02:50 Urine Appearance Hazy (CLEAR) A 09/19/23 02:50 Urine pH 6 (5-7) 09/19/23 02:50 Ur Specific [place] 1.010 (1.005-1.030) 09/19/23 02:50 Urine Protein Neg (Negative) 09/19/23 02:50 Urine Glucose (UA) Norm (Normal) 09/19/23 02:50 Urine Ketones Negative (Negative) 09/19/23 02:50 Urine Blood 2+ (Negative) H 09/19/23 02:50 Urine Nitrate Negative (Negative) 09/19/23 02:50 Urine Bilirubin Neg (Negative) 09/19/23 02:50 Urine Urobilinogen Neg mg/dL (Negative) 09/19/23 02:50 Ur Leukocyte Esterase 2+ (Negative) H 09/19/23 02:50 Urine RBC 0-4 /hpf (0-2) H 09/19/23 02:50 Urine WBC 15-25 /hpf (0-5) H 09/19/23 02:50 Ur Squamous Epith Cells 5-10 /hpf (0-5) H 09/19/23 02:50 Amorphous Sediment Not Reportable 09/19/23 02:50 Urine Bacteria 1+ /hpf (NONE) H 09/19/23 02:50 Salicylates 0.8 mg/dL (3-10) L 09/19/23 03:36 Urine Opiates Screen Negative ng/mL (Negative) 09/19/23 02:50 Acetaminophen < 5.0 ug/mL (10-30) L 09/19/23 03:36 Ur Barbiturates Screen Negative ng/mL (Negative) 09/19/23 02:50 Ur Phencyclidine Scrn Negative ng/mL (Negative) 09/19/23 02:50 Ur Amphetamines Screen Negative ng/mL (Negative) 09/19/23 02:50 U Benzodiazepines Scrn Negative ng/mL (Negative) 09/19/23 02:50 Urine Cocaine Screen Negative ng/mL (Negative) 09/19/23 02:50 U Marijuana (THC) Screen Positive ng/mL (Negative) H 09/19/23 02:50 Ethyl Alcohol 148 mg/dL (0-10) H 09/19/23 03:36 Influenza Type A Ag negative (Negative) 09/19/23 09:28 Influenza Type B Ag negative (Negative) 09/19/23 09:28 SARS-CoV-2 Ag (Rapid) negative (Negative) 09/19/23 09:28 Discharge Plan Discharge Patient Disposition: Home Clinical Impression: Alcohol abuse, Depression Condition: Stable Prescriptions: No Action gabapentin 600 mg tablet 600 mg PO TID hydrocodone-acetaminophen 10-325 mg tablet 1 tab PO Q4H PRN (Reason: Pain) Ventolin HFA 90 mcg/actuation HFA aerosol inhaler 1 - 2 puff INHALATION Q4H PRN (Reason: Shortness Of Breath) trazodone 150 mg Tablet 600 mg PO BEDTIME 30 Days Qty: 120 1RF metoclopramide HCl [Reglan] 10 mg tablet 10 mg PO Q6H PRN (Reason: nausea and vomiting) Qty: 20 0RF paroxetine HCl 40 mg tablet 40 mg PO BEDTIME 30 Days Qty: 30 1RF thiamine mononitrate (vit B1) [Vitamin B-1 (mononitrate)] 100 mg Tablet 100 mg PO DAILY 30 Days Qty: 30 1RF tizanidine 4 mg Capsule 4 mg PO Q8H PRN (Reason: Spasms) 15 Days Qty: 45 1RF buprenorphine-naloxone [Suboxone] 8-2 mg Film 1 film BUCCAL BID 7 Days Qty: 14 3RF Lasix 20 mg tablet 20 mg PO DAILY Qty: 5 0RF Discharge Orders: Discharge ED (Routine); Ordered 09/19/23 Ordered By: Azar Valle Referrals: Willard Ham MD [Primary Care Provider] - Discharge Diet: Usual diet Discharge Activity: Increase activity as tolerated Patient Instructions: Alcohol Intoxication (ED), Abuse of Alcohol (ED), Alcohol Dependence (ED), Alcohol Use Disorder (ED), Opioid Safety, Pain Management Activity Restrictions/Additional Instructions: Thank you for choosing [facility] for your healthcare needs today. Please realize this is an emergency room and that we are providing you with a medical screening exam and this may not be complete and all inclusive of all the testing and or work up that you may need to determine your ailment or severity of your illness. It is very important that you follow up as instructed or that you return to the Emergency Department should you have concerns or if your condition changes or worsens in any way. Abstain from alcohol. Recommend you seek treatment for alcohol abuse in an outpatient program such as [facility] or [facility]. Also recommend that you establish at [facility] for assistance with your mental health issues. Sign Out Sign Out Data: Patient Sign Out occurred on 09/19/23 at 06:08. Patient's care was discussed, and care was transferred from Cristi Das DO to Azar Valle DO. Coding Level of Care Code ED Production Team Member for Milagro Lao
[2023-09-19 03:41] LABS: Basophils % 0.3 %; Eosinophils # 0.2 10^3/uL (0.0-0.8); Eosinophils % 3.6 %; Hematocrit 40.6 % (36-47); Lymphocytes # 1.6 10^3/uL (0.8-4.8); Lymphocytes % 26.4 %; Mean Corpuscular HGB Conc 31.8 g/dL (30-55); Mean Corpuscular Volume 91.2 fl (85-98); Mean Platelet Volume 9.6 fL (7.4-10.4); Monocytes # 0.3 10^3/uL (0.2-0.9); Neutrophils # 3.88 10^3/uL (1.8-7.7); Neutrophils % 64.2 %; Nucleated Red Blood Cells % 0 %; Platelet Count 225 10^3/cmm (157-399); Red Blood Count 4.45 10^6/uL (3.85-5.65); Red Cell Distribution Width 15.6 % (12.1-15.1); White Blood Count 6.05 10^3/uL (3.29-11.43)
[2023-09-19 04:04] LABS: Alanine Aminotransferase 11 U/L (0-33); Albumin Level 3.5 g/dL (3.5-5.2); Alcohol Level 148 mg/dL (0-10); Alkaline Phosphatase 86 U/L (35-105); Anion Gap 12.7 (5-19); Aspartate Amino Transferase 16 U/L (0-32); Blood Urea Nitrogen 12 mg/dL (6-20); Calcium 8.2 mg/dL (8.5-10.5); Carbon Dioxide 29 mmol/L (22-29); Chloride 105 mmol/L (98-107); Creatinine Clr Calc Pharmacy 154.8342; Globulin 3.6 g/dL (1.3-4.6); Glucose 141 mg/dL (65-115); Osmolality Calculated 298 mOsm/kg (285-295); Potassium 3.7 mmol/L (3.5-5.1); Salicylate 0.8 mg/dL (3-10); Sodium 143 mmol/L (136-145); Total Bilirubin 0.2 mg/dL (0.15-1.2); Total Protein 7.1 g/dL (6.6-8.7)
[2023-09-19 04:20] LABS: Acetaminophen < 5.0 ug/mL (10-30)
--- NOTE | 2023-09-19 07:22 | PC.PHAR ---
PT UNABLE TO VERIFY ANY MEDICATIONS. MED REC DONE BASED ON PT HOSPITAL PHARMACY LIST AND EXT MED LIST WITH DATES FILLED IN THE NOTES.
[2023-09-19] MEDS: cefTRIAXone 1,000 MG in water for injection-sterile 2.1 ML 2.10000000000000009 MG IM (09:43)
[2023-09-19 10:02] LABS: Influenza A by IFA negative (Negative); Influenza B by IFA negative (Negative); SARS Covid-2 Antigen negative (Negative)
[2023-09-19] MEDS: gabapentin 300 mg Capsule 600 MG PO (11:33)
[2023-09-19] MEDS: buprenorphine-naloxone 4-1 mg Film 2 EACH SUBLINGUAL (11:58)
[2023-09-19] MEDS: diclofenac 75 mg DR Tablet PO (11:59)
[2023-09-19] MEDS: PARoxetine 20 mg Tablet 40 MG PO (11:59)
[2023-09-19 12:38] VITALS: BP 111/64; PULSE 89; TEMP 36.2; O2SAT 94
== END 2023-09-19 14:28 | disposition home or self-care (01) ==
PROVIDERS: Emergency Medicine; Emergency Provider Family Medicine; PCP Family Medicine
DX: F10.10 Alcohol abuse, uncomplicated (principal); F32.A Depression, unspecified; Z11.52 Encounter for screening for COVID-19; F17.210 Nicotine dependence, cigarettes, uncomplicated; I10 Essential (primary) hypertension; E11.9 Type 2 diabetes mellitus without complications
CPT/HCPCS: 36415; 80053; 80306; 80307; 81001; 81025; 85025; 87086; 87426; 87804; 96372; 99284; J0573; J0696

== ENCOUNTER 2023-09-19 15:19 | Emergency (ER) | payer SELFPAY ==
[2023-09-19 15:48] VITALS: BP 126/85; PULSE 89; RESP 17; TEMP 36.3; O2SAT 94
--- NOTE | 2023-09-19 15:56 | ED_ITS ---
HPI - Extremity Problem General: Chief complaint: Extremity Problem,Nontraumatic Stated complaint: legs swollen Time Seen by Provider: 09/19/23 15:56 Source: patient Mode of arrival: ambulatory History of Present Illness: 42-year-old female was seen earlier toda y with swelling in her lower extremities. This is a chronic problem she had complained when she was here earlier today of leg pain we have given her gabapentin paroxetine a dose of Suboxone. Later during that visit it was determined which she would be discharged rather than transferred. She had retracted her suicidal ideation stating she only said it to gain admission to the hospital for place to stay we discussed that issue with the on-call psychiatrist he concurred that she could be discharged. She is requesting another dose of Suboxone at this time as well. MD Complaint: extremity swelling Location: left, right and lower extremity Quality: aching Associated symptoms: Deny arthralgias, chest pain, fever(s), myalgias, rash or short of breath Review of Systems Const: Denies: fever(s) or chills Card: Denies: chest pain Resp: Denies: dyspnea GI: Denies: abdominal pain : Denies: dysuria, urinary frequency or urinary urgency Musc: Reports: extremity swelling; Denies: neck pain or back pain Skin/Breast: Denies: rash PFSH ED PFSH: Medical History History of attempted suicide Psychiatric care Opiate abuse, episodic Methamphetamine dependence, episodic Pyuria Morbid obesity with BMI of 50.0-59.9, adult Fatty infiltration of liver Abnormal uterine bleeding (AUB) Urinary incontinence Asthma Benign essential HTN Uncontrolled type 2 diabetes mellitus, without long-term current use of insulin Hypothyroidism DDD (degenerative disc disease) Intervertebral disc disorders with radiculopathy, lumbar region Bilateral primary osteoarthritis of knee Gender dysphoria Nicotine dependence, cigarettes, uncomplicated Major depressive disorder, recurrent severe without psychotic features Surgical History History of ureter stent S/P laparoscopic appendectomy (04/19/20) History of endometrial biopsy (04/13/20) benign endocervical epithelium Hx of foot surgery Family History Mother Diabetes Sister Cancer ovarian Other Dementia Heart disease Hypertension Psychiatric illness Denies family history of CAD (coronary artery disease) Clotting disorder Hyperlipidemia Chronic kidney disease (CKD) Anesthesia complication Bleeding disorder Lung disease Stroke Social History Smoking and tobacco/nicotine status: current every day tobacco/nicotine user cigarettes Packs smoked per day: 0.50 Alcohol intake: current Alcohol intake frequency: other Alcohol type: beer and hard liquor Substance/Drug Use: former Date of last use: 2017 Lives independently: Yes Household members: other Details: partner and her mom Marital status: Single Number of children: 0 Current occupational status: disabled Current gender identity: Male and Other Gender Identity Comment: Goes by Saul, considering formal transition Special hero needs: No Agree to transfusion: Yes Physical Exam Const: COMMON NORMALS: no acute distress GENERAL APPEARANCE: cooperative and comfortable ORIENTATION/CONSCIOUSNESS: Yes awake, Yes oriented to person, Yes oriented to place and Yes oriented to time HENMT: COMMON NORMALS: normocephalic, atraumatic and hearing grossly normal bilaterally HEAD & SCALP: normocephalic and atraumatic Resp: COMMON NORMALS: normal respiratory effort, No retractions, No use of accessory muscles and clear to auscultation bilaterally AUSCULTATION: clear to auscultation bilaterally Extremity: OTHER: 2+ edema in the lower extremities to the level of fully distal third of the lower leg. There is 1 area of excoriation on the medial aspect of the left leg no redness no erythema no sign of infection. There is a little bit of serous drainage from the excoriated areas on the left leg. 2+ edema pitting. There are several scars on the ankles from previous surgeries. No deformities. Patient has normal muscle strength and weightbearing. Neuro: SENSORIUM/ORIENTATION: Yes oriented to person, Yes oriented to place and Yes oriented to time Skin: COMMON NORMALS: no rashes or lesions noted GENERAL SKIN EXAM: no rashes or lesions noted Course Vital Signs: Vital signs: Vital Signs Temperature 97.4 F L 09/19/23 15:48 Pulse Rate 89 09/19/23 15:48 Respiratory Rate 17 09/19/23 15:48 Blood Pressure 126/85 09/19/23 15:48 Pulse Oximetry 94 09/19/23 15:48 Oxygen Delivery Me thod Room Air 03/01/24 15:48 MDM - Extremity (Nontraumatic) Medical Decision Making Medical records and labs reviewed from previous visit did not repeat labs as it been done earlier today. She has no renal issues and electrolyte issues. Recommend adding Lasix 20 mg once a day for the next 5 days follow-up with her primary care doctor. She can also elevate feet whenever possible and use compression stockings on her legs. She has any worsening problems she can return to her primary care physician. Patient requested another dose of Suboxone and was angry when we declined. We have given to her earlier today because at that time we are planning on transfer at this time she is an outpatient there is no expectation of transfer she should take her regularly prescribed medications from the Suboxone clinic. Medical Records I reviewed the patient's medical records. Lab Data I reviewed the patient's lab results. No radiology studies performed this visit Discharge Plan Discharge Patient Disposition: Home Clinical Impression: Leg edema Condition: Stable Prescriptions: New Lasix 20 mg tablet 20 mg PO DAILY Qty: 5 0RF Discontinued ketorolac 10 mg tablet 10 mg PO Q6H PRN (Reason: pain) Qty: 20 0RF No Action gabapentin 600 mg tablet 600 mg PO TID hydrocodone-acetaminophen 10-325 mg tablet 1 tab PO Q4H PRN (Reason: Pain) Ventolin HFA 90 mcg/actuation HFA aerosol inhaler 1 - 2 puff INHALATION Q4H PRN (Reason: Shortness Of Breath) trazodone 150 mg Tablet 600 mg PO BEDTIME 30 Days Qty: 120 1RF metoclopramide HCl [Reglan] 10 mg tablet 10 mg PO Q6H PRN (Reason: nausea and vomiting) Qty: 20 0RF paroxetine HCl 40 mg tablet 40 mg PO BEDTIME 30 Days Qty: 30 1RF thiamine mononitrate (vit B1) [Vitamin B-1 (mononitrate)] 100 mg Tablet 100 mg PO DAILY 30 Days Qty: 30 1RF tizanidine 4 mg Capsule 4 mg PO Q8H PRN (Reason: Spasms) 15 Days Qty: 45 1RF buprenorphine-naloxone [Suboxone] 8-2 mg Film 1 film BUCCAL BID 7 Days Qty: 14 3RF Discharge Orders: Discharge ED (Routine); Ordered 09/19/23 Ordered By: Azar Valle Referrals: Willard Ham MD [Primary Care Provider] - Discharge Diet: Usual diet Discharge Activity: Resume usual activity Patient Instructions: Opioid Safety, Pain Management Activity Restrictions/Additional Instructions: Thank you for choosing [facility] for your healthcare needs today. Please realize this is an emergency room and that we are providing you with a medical screening exam and this may not be complete and all inclusive of all the testing and or work up that you may need to determine your ailment or severity of your illness. It is very important that you follow up as instructed or that you return to the Emergency Department should you have concerns or if your c ondition changes or worsens in any way. You were seen with complaints of swelling in the legs due to some mild swelling in your legs appears to be chronic. Recommend elevating legs whenever possible wearing compression stockings during the day can also be helpful. These can be purchased from local pharmacy or online. Also recommend starting Lasix 20 mg once a day for the next 3 to 5 days. You should follow-up with your primary care doctor if you have persistent swelling in your legs for further treatment options and recommendations. Medications such as your gabapentin can also have the side effects of increased swelling. You may wish to discuss this with your primary care doctor and see if a dose adjustment might be helpful. Coding Level of Care Code ED Contact Center Team Lead for Milagro Lao
== END 2023-09-19 16:17 | disposition home or self-care (01) ==
PROVIDERS: Emergency Provider Family Medicine; PCP Family Medicine
DX: R60.0 Localized edema (principal); F17.210 Nicotine dependence, cigarettes, uncomplicated; I10 Essential (primary) hypertension; E11.9 Type 2 diabetes mellitus without complications
CPT/HCPCS: 99281

== ENCOUNTER 2023-09-22 21:37 | Emergency (ER) | payer SELFPAY ==
[2023-09-22 21:42] VITALS: BP 130/84; PULSE 91; RESP 18; TEMP 36.4; O2SAT 93; BMI 41.4
--- NOTE | 2023-09-22 22:00 | W.ED.EXTPRO ---
HPI - Extremity Problem General: Chief complaint: Extremity Problem,Nontraumatic Stated complaint: bilateral leg pain and redness Time Seen by Provider: 09/22/23 21:40 History of Present Illness: Patient presents to the ER with complaints of bilateral lower leg swelling and redness. Also had complaints of knee pain. Patient states she does not have any money to buy any medicine so she was not able to get her Lasix feel that the last time she was here for the same complaint. However then she goes on and says she has a friend that has some Lasix and some doxycycline that she can take. Patient also wanting pain medicine for her knees but says Toradol does not help at all. She has no new trauma Review of Systems General: Reports: 10 or more systems reviewed and unremarkable except in HPI and below PFSH ED PFSH: Medical History History of attempted suicide Psychiatric care Opiate abuse, episodic Methamphetamine dependence, episodic Pyuria Morbid obesity with BMI of 50.0-59.9, adult Fatty infiltration of liver Abnormal uterine bleeding (AUB) Urinary incontinence Asthma Benign essential HTN Uncontrolled type 2 diabetes mellitus, without long-term current use of insulin Hypothyroidism DDD (degenerative disc disease) Intervertebral disc disorders with radiculopathy, lumbar region Bilateral primary osteoarthritis of knee Gender dysphoria Nicotine dependence, cigarettes, uncomplicated Major depressive disorder, recurrent severe without psychotic features Surgical History History of ureter stent S/P laparoscopic appendectomy (04/19/20) History of endometrial biopsy (04/13/20) benign endocervical epithelium Hx of foot surgery Family History Mother Diabetes Sister Cancer ovarian Other Dementia Heart disease Hypertension Psychiatric illness Denies family history of CAD (coronary artery disease) Clotting disorder Hyperlipidemia Chronic kidney disease (CKD) Anesthesia complication Bleeding disorder Lung disease Stroke Social History Smoking and tobacco/nicotine status: current every day tobacco/nicotine user cigarettes Packs smoked per day: 0.50 Alcohol intake: current Alcohol intake frequency: other Alcohol type: beer and hard liquor Substance/Drug Use: former Date of last use: 2017 Lives independently: Yes Household members: other Details: partner and her mom Marital status: Single Number of children: 0 Current occupational status: disabled Current gender identity: Male and Other Gender Identity Comment: Goes by Saul, considering formal transition Special hero needs: No Agree to transfusion: Yes Physical Exam Const: COMMON NORMALS: no acute distress, average body habitus, patient oriented x3, no limitations, healthy appearing, alert and well nourished Neck/C-Spine: COMMON NORMALS: no JVD Chest: COMMONS NORMALS: normal inspection of the chest and normal palpation of entire chest wall Resp: COMMON NORMALS: normal respiratory effort, No retractions, No use of accessory muscles and clear to auscultation bilaterally AUSCULTATION: clear to auscultation bilaterally Cardio: COMMON NORMALS: no JVD, regular rate, regular rhythm, S1 normal heart sound present, S2 normal heart sound present, No gallops present (Cardio), No clicks present (Cardio), No murmurs present (Cardio) and No rub (Cardio) RATE: regular rate RHYTHM: regular rhythm HEART SOUNDS: S1 normal heart sound present and S2 normal heart sound present GI: COMMON NORMALS: Normal to inspection, nondistended, normoactive bowel sounds present, Soft to palpation, non-tender, No hepatosplenomegaly present and no masses PALPATION: Yes Soft to palpation and Yes No hepatosplenomegaly present Extremity: NARRATIVE EXTREMITY EXAM: Legs 1-2+ pitting edema bilateral lower extremities up to knee, minimal redness probably more consistent with chronic venous stasis and cellulitis Neuro: COMMON NORMALS: patient oriented x3 SENSORIUM/ORIENTATION: Yes alert Course Vital Signs: Vital signs: Vital Signs Temperature 97.5 F L 09/22/23 21:42 Pulse Rate 91 09/22/23 21:42 Respiratory Rate 18 09/22/23 21:42 Blood Pressure 130/84 09/22/23 21:42 Pulse Oximetry 93 09/22/23 21:42 Oxygen Delivery Me thod Room Air 09/22/23 21:42 MDM - Extremity (Nontraumatic) Medical Decision Making Physical exam was performed patient be given 1 tramadol 50 mg, 1 doxycycline 100 mg, Lasix 40 mg all to take p.o. here in ER. Patient will be given a prescription for doxycycline and more 20 mg Lasix for 5 days. Patient should make an appointment with her primary care physician for further evaluation and treatment. Differential Diagnosis Likely cellulitis; Unlikely herpes zoster, gout, superficial thrombophlebitis, deep venous thrombosis of upper extremity, lower extremity edema or deep vein thrombosis of lower extremity Medical Records I reviewed the patient's medical records. Lab Data I reviewed the patient's lab results. No radiology studies performed this visit Discharge Plan Discharge Patient Disposition: Home Clinical Impression: Leg edema Cellulitis Qualifiers: Site of cellulitis: other site Qualified Code(s): L03.818 - Cellulitis of other sites Condition: Stable Prescriptions: New doxycycline hyclate 100 mg capsule 100 mg PO BID 7 Days Qty: 14 0RF Lasix 20 mg tablet 20 mg PO DAILY Qty: 5 0RF No Action gabapentin 600 mg tablet 600 mg PO TID hydrocodone-acetaminophen 10-325 mg tablet 1 tab PO Q4H PRN (Reason: Pain) Ventolin HFA 90 mcg/actuation HFA aerosol inhaler 1 - 2 puff INHALATION Q4H PRN (Reason: Shortness Of Breath) trazodone 150 mg Tablet 600 mg PO BEDTIME 30 Days Qty: 120 1RF metoclopramide HCl [Reglan] 10 mg tablet 10 mg PO Q6H PRN (Reason: nausea and vomiting) Qty: 20 0RF paroxetine HCl 40 mg tablet 40 mg PO BEDTIME 30 Days Qty: 30 1RF thiamine mononitrate (vit B1) [Vitamin B-1 (mononitrate)] 100 mg Tablet 100 mg PO DAILY 30 Days Qty: 30 1RF tizanidine 4 mg Capsule 4 mg PO Q8H PRN (Reason: Spasms) 15 Days Qty: 45 1RF buprenorphine-naloxone [Suboxone] 8-2 mg Film 1 film BUCCAL BID 7 Days Qty: 14 3RF Lasix 20 mg tablet 20 mg PO DAILY Qty: 5 0RF Discharge Orders: Discharge ED (Routine); Ordered 09/22/23 Ordered By: Cristi Das Referrals: Willard Ham MD [Primary Care Provider] - Patient Instructions: Cellulitis (ED), Edema (ED) Activity Restrictions/Additional Instructions: Please take all medicine as directed. Please follow-up with your family practice physician within the next 7 days for further evaluation and treatment. Please try to keep legs elevated and/or use compression stockings. Coding Level of Care Code ED Risk And Insurance Manager for Milagro Lao
[2023-09-22] MEDS: doxycycline 100 mg Tablet PO (22:03)
[2023-09-22] MEDS: FUROsemide 40 mg Tablet PO (22:03)
[2023-09-22] MEDS: TRAMadol 50 mg Tablet PO (22:03)
== END 2023-09-22 22:17 | disposition home or self-care (01) ==
PROVIDERS: Emergency Provider Emergency Medicine; PCP Family Medicine
DX: L03.116 Cellulitis of left lower limb (principal); L03.115 Cellulitis of right lower limb; R60.0 Localized edema; F17.210 Nicotine dependence, cigarettes, uncomplicated; I10 Essential (primary) hypertension; E11.9 Type 2 diabetes mellitus without complications
CPT/HCPCS: 99283

== ENCOUNTER → 2023-09-23 14:37 | Outpatient (BNVA) | payer OTHER, SELFPAY | PROVIDERS: PCP Family Medicine; Visit Provider Psychiatry & Neurology Psychiatry | DX: F11.20 Opioid dependence, uncomplicated (principal); Z79.899 Other long term (current) drug therapy; F33.2 Major depressive disorder, recurrent severe without psychotic features; F15.20 Other stimulant dependence, uncomplicated; F60.3 Borderline personality disorder; F41.1 Generalized anxiety disorder; F15.21 Other stimulant dependence, in remission; F12.20 Cannabis dependence, uncomplicated | CPT/HCPCS: 80307 ==

== ENCOUNTER 2023-10-12 19:18 | Emergency (ER) | payer MEDICAID, SELFPAY ==
[2023-10-12 19:33] VITALS: BP 172/95; PULSE 71; RESP 17; TEMP 36.3; O2SAT 98; BMI 40.6
--- NOTE | 2023-10-12 20:15 | XRR_ITS ---
PROCEDURE INFORMATION: Exam: XR Left Hip Exam date and time: 10/12/2023 8:24 PM Age: 42 years old Clinical indication: Left hip; Patient HX: Lt pelvic/hip pain that radiates to posterior left thigh; No known injury TECHNIQUE: Imaging protocol: Radiologic exam of the left hip. Views: 2 or 3 views hip with pelvis when performed. COMPARISON: CT kidney stone [id number] 12/01/2022 11:38 AM FINDINGS: Bones/joints: No acute fracture or dislocation. There is bilateral hip pincer type morphology with over coverage of the femoral head by the acetabulum, which can predispose to femoroacetabular impingement. Soft tissues: Unremarkable. 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
--- NOTE | 2023-10-12 20:16 | ED_ITS ---
HPI - Extremity Problem General: Chief complaint: Extremity Injury, Lower Stated complaint: Left Leg Pain Time Seen by Provider: 10/12/23 20:08 History of Present Illness: 42-year-old female presents emergency de partment complaints of left hip and thigh pain. She states she has chronic left hip pain but a few days ago started having intermittent shooting/burning pain down the lateral aspect of the entire left leg. She denies known injury or trauma. She states that nothing seems to make the pain better and nothing seems to make the pain worse. Review of Systems General: Reports: 10 or more systems reviewed and unremarkable except in HPI and below Musc: Reports: extremity pain and joint pain PFSH ED PFSH: Medical History History of attempted suicide Psychiatric care Opiate abuse, episodic Methamphetamine dependence, episodic Pyuria Morbid obesity with BMI of 50.0-59.9, adult Fatty infiltration of liver Abnormal uterine bleeding (AUB) Urinary incontinence Asthma Benign essential HTN Uncontrolled type 2 diabetes mellitus, without long-term current use of insulin Hypothyroidism DDD (degenerative disc disease) Intervertebral disc disorders with radiculopathy, lumbar region Bilateral primary osteoarthritis of knee Gender dysphoria Nicotine dependence, cigarettes, uncomplicated Major depressive disorder, recurrent severe without psychotic features Surgical History History of ureter stent S/P laparoscopic appendectomy (04/19/20) History of endometrial biopsy (04/13/20) benign endocervical epithelium Hx of foot surgery Family History Mother Diabetes Sister Cancer ovarian Other Dementia Heart disease Hypertension Psychiatric illness Denies family history of CAD (coronary artery disease) Clotting disorder Hyperlipidemia Chronic kidney disease (CKD) Anesthesia complication Bleeding disorder Lung disease Stroke Social History Smoking and tobacco/nicotine status: current every day tobacco/nicotine user cigarettes Packs smoked per day: 0.50 Alcohol intake: current Alcohol intake frequency: other Alcohol type: beer and hard liquor Substance/Drug Use: former Date of last use: 2017 Lives independently: Yes Household members: other Details: partner and her mom Marital status: Single Number of children: 0 Current occupational status: disabled Current gender identity: Male and Other Gender Identity Comment: Goes by Saul, considering formal transition Special hero needs: No Agree to transfusion: Yes Physical Exam Narrative: EXAM NARRATIVE: Constitutional: the patient appears well nourished and with normal development. Vital signs reviewed as documented. GCS 15, A&O x [address], [address], time and situation. HENMT: Normocephalic, atraumatic. External ears normal appearance without swati inage. Nose without drainage, normal appearance. Mucus membranes moist. Neck is supple, No jugular venous distension, trachea is midline, no appreciable carotid bruits. No lymphadenopathy. No meningeal signs. Flexion, extension and lateral rotation is without pain. Eyes: Pupils are equal, round, reactive to light and accommodation. No scleral icterus. Extra-ocular movement are intact. Thorax is symmetrical and with equal rise and fall with respirations. Resp: Lungs are clear to auscultation. No wheezes, rales, crackles or ronchi at present. Cardio: Regular rate and rhythm. Positive S1, S2. No appreciable murmurs, rubs or gallops. GI: Abdominal exam reveals normal bowel sounds to all quadrants. No organomegaly. No obvious palpable masses noted. No hepatomegally appreciated. Soft, non-tender to palpation. Extremity: Extremities are non-edematous and both femoral and pedal pulses are 2+ and equal bilaterally. Moves all extremities well, sensation in all extremities. Neuro: Alert and oriented x4, person, place, time and situation. Cranial nerves II through XII are grossly intact, there is no focal neurological deficits that I can appreciate at present. Sensation intact to all extremities. 2-point discrimination intact. Light touch intact to all extremities. Motor strength in the upper and lower extremities are equal and bilateral 5/5. Psych: Cooperative, calm, normal thought process, appropriate judgment. Skin: No lesions, rashes. No gross abnormalities noted. Back: Symmetrical, no obvious deformity, No CVA tenderness, normal alignment, Course Reevaluation(s): Reevaluation #1: Reevaluation of the patient's pain is much better after she received her injections. I did discuss the radiographic findings and advised her that I sent a prescription electronically to her pharmacy of choice. I encouraged her to follow-up with her primary care provider to discuss additional evaluation treatment and care regarding her sciatica. Time: 21:56 Vital Signs: Vital signs: Vital Signs Temperature 97.3 F L 10/12/23 19:33 Pulse Rate 71 10/12/23 19:33 Respiratory Rate 17 10/12/23 19:33 Blood Pressure 172/95 10/12/23 19:33 Pulse Oximetry 98 10/12/23 19:33 Oxygen Delivery Me thod Room Air 10/12/23 19:33 MDM - Extremity (Nontraumatic) Medical Decision Making Physical exam completed and documented I will provide the patient radiographic examination as well as Toradol intramuscular and corticosteroid. Medical Records I reviewed the patient's medical records. Lab Data Radiology Impressions Hip/Pelvis X-Ray 10/12/23 20:15 IMPRESSION: There is bilateral hip pincer type morphology with overcoverage of the femoral head by the acetabulum, which can predispose to femoroacetabular impingement. All radiology interpretation(s) finalized by discharge Discharge Plan Discharge Patient Disposition: Home Clinical Impression: Sciatica Qualifiers: Laterality: left Qualified Code(s): M54.32 - Sciatica, left side Condition: Stable Prescriptions: New naproxen 500 mg tablet 500 mg PO Q12H PRN (Reason: pain) Qty: 20 0RF No Action trazodone 150 mg tablet 600 mg PO BEDTIME 30 Days Qty: 120 1RF buprenorphine-naloxone 8-2 mg tablet, sublingual 1 tab sublingual BID Qty: 60 1RF gabapentin 600 mg tablet 600 mg PO TID hydrocodone-acetaminophen 10-325 mg tablet 1 tab PO Q4H PRN (Reason: Pain) Ventolin HFA 90 mcg/actuation HFA aerosol inhaler 1 - 2 puff INHALATION Q4H PRN (Reason: Shortness Of Breath) Lasix 20 mg tablet 20 mg PO DAILY Qty: 5 0RF metoclopramide HCl [Reglan] 10 mg tablet 10 mg PO Q6H PRN (Reason: nausea and vomiting) Qty: 20 0RF paroxetine HCl 40 mg tablet 40 mg PO BEDTIME 30 Days Qty: 30 1RF thiamine mononitrate (vit B1) [Vitamin B-1 (mononitrate)] 100 mg Tablet 100 mg PO DAILY 30 Days Qty: 30 1RF tizanidine 4 mg Capsule 4 mg PO Q8H PRN (Reason: Spasms) 15 Days Qty: 45 1RF Lasix 20 mg tablet 20 mg PO DAILY Qty: 5 0RF Discharge Orders: Discharge ED (Routine); Ordered 10/12/23 Ordered By: Nathan Martinez Referrals: Willard Ham MD [Primary Care Provider] - Discharge Diet: Usual diet Discharge Activity: Resume usual activity Patient Instructions: Opioid Safety, Pain Management Activity Restrictions/Additional Instructions: Activity Restrictions/Additional Instructions: Thank you for choosing [facility] [place] for your healthcare needs today. Please realize that you were seen in the Emergency Department and that we are providing you with an emergency medical screening exam and this may not be a complete and all inclusive of all the testing and or medical work-up that you may need to determine your ailment or severity of your illness. It is very important that you follow-up as instructed with your Primary care provider or Specialist for additional evaluation and to discuss your medical treatment plan. Coding Level of Care Code ED Food Production Manager for Milagro Lao
[2023-10-12] MEDS: methylPREDNISolone sod succ 125 mg/2 mL INJ 60 MG IM (20:59)
[2023-10-12] MEDS: ketorolac 60 mg/2 mL INJ IM (21:00)
[2023-10-12 22:04] VITALS: BP 155/91; PULSE 84; RESP 18; O2SAT 97
== END 2023-10-12 22:07 | disposition home or self-care (01) ==
PROVIDERS: Emergency Provider Internal Medicine; PCP Family Medicine
DX: M54.32 Sciatica, left side (principal); F17.210 Nicotine dependence, cigarettes, uncomplicated; I10 Essential (primary) hypertension; E11.9 Type 2 diabetes mellitus without complications
CPT/HCPCS: 73502; 96372; 99284; J1885; J2930

== ENCOUNTER → 2023-10-21 14:53 | Outpatient (BNVA) | payer MEDICAID, SELFPAY | PROVIDERS: PCP Family Medicine; Visit Provider Psychiatry & Neurology Psychiatry | DX: F33.2 Major depressive disorder, recurrent severe without psychotic features (principal); F60.3 Borderline personality disorder; F15.21 Other stimulant dependence, in remission; F11.20 Opioid dependence, uncomplicated; F12.20 Cannabis dependence, uncomplicated; F41.1 Generalized anxiety disorder | CPT/HCPCS: 80307 ==

== ENCOUNTER 2023-10-29 22:34 | Emergency (ER) | payer MEDICAID, SELFPAY ==
[2023-10-29 22:36] VITALS: BP 134/94; PULSE 87; RESP 18; TEMP 36.6; O2SAT 97; BMI 41.8
--- NOTE | 2023-10-29 23:46 | W.ED.ANIMALB ---
HPI - Animal Bite General: Chief Complaint: Animal Bite Stated Complaint: right leg pain Time Seen by Provider: 10/29/23 22:50 History of Present Illness: 42-year-old female presents emergency department with complaints of right leg pain. Patient states that she may have a spider bite to the back of her right knee. She states the area is reddened and states she noticed it after she woke up this afternoon. She states that she does have an aching throbbing pain to the same general area. She denies numbness or tingling to the extremity. The patient does have a history of sciatica to the same extremity. She denies fever, chills or night sweats. She denies nausea or vomiting. She states she is on buprenorphine. Review of Systems General: Reports: 10 or more systems reviewed and unremarkable except in HPI and below Musc: Reports: extremity pain Skin/Breast: Reports: other (Superficial abrasion right popliteal space no obvious signs of cellulitis) [facility] ED PFSH: Medical History History of attempted suicide Psychiatric care Opiate abuse, episodic Methamphetamine dependence, episodic Pyuria Morbid obesity with BMI of 50.0-59.9, adult Fatty infiltration of liver Abnormal uterine bleeding (AUB) Urinary incontinence Asthma Benign essential HTN Uncontrolled type 2 diabetes mellitus, without long-term current use of insulin Hypothyroidism DDD (degenerative disc disease) Intervertebral disc disorders with radiculopathy, lumbar region Bilateral primary osteoarthritis of knee Gender dysphoria Nicotine dependence, cigarettes, uncomplicated Major depressive disorder, recurrent severe without psychotic features Surgical History History of ureter stent S/P laparoscopic appendectomy (04/19/20) History of endometrial biopsy (04/13/20) benign endocervical epithelium Hx of foot surgery Family History Mother Diabetes Sister Cancer ovarian Other Dementia Heart disease Hypertension Psychiatric illness Denies family history of CAD (coronary artery disease) Clotting disorder Hyperlipidemia Chronic kidney disease (CKD) Anesthesia complication Bleeding disorder Lung disease Stroke Social History Smoking and tobacco/nicotine status: current every day tobacco/nicotine user cigarettes Packs smoked per day: 0.50 Alcohol intake: current Alcohol intake frequency: other Alcohol type: beer and hard liquor Substance/Drug Use: former Date of last use: 2017 Lives independently: Yes Household members: other Details: partner and her mom Marital status: Single Number of children: 0 Current occupational status: disabled Current gender identity: Male and Other Gender Identity Comment: Goes by Saul, considering formal transition Special hero needs: No Agree to transfusion: Yes Physical Exam Narrative: EXAM NARRATIVE: Constitutional: the patient appears well nourished and of normal development. Vital signs as documented. No acute distress at present. Alert and oriented-to person, place, time and situation. Head, eyes, ears, nose, mouth, throat: Normocephalic, atraumatic. Pupils-equal, round, reactive to light. No scleral icterus. Normal-appearing external ears. Normal appearing nasal turbinates, no drainage. No obvious oral lesions, posterior oropharynx without erythema or exudates. Neck: Supple, trachea is midline, no lymphadenopathy, no jugular venous distension, thyromegaly, or carotid bruits. Carotid upstrokes are brisk bilaterally. Lungs: clear to auscultation to all lung keith. Symmetrical rise and fall of chest, no obvious signs of increased work of breathing at present. Cardiac: Regular rate and rhythm, positive S1, S2. No murmurs, rubs or gallops that I can appreciate Abdomen: Soft, non-tender to palpation, normal active bowel sounds to all quadrants. No palpable masses, no organomegaly and abdominal bruits. Extremities: 2+ pulses in the upper extremities that are equal bilaterally, 2+ pulses in the lower extremities that are equal bilaterally. Non-edematous. Moves all extremities well, sensation to all extremities are noted. Superficial abrasion approximately 1 cm to the right popliteal fossa, no cellulitis or signs of active infection to the area. Skin: Warm, dry, intact. Superficial abrasion as noted. Course Vital Signs: Vital signs: Vital Signs Temperature 97.8 F 10/29/23 22:36 Pulse Rate 87 10/29/23 22:36 Respiratory Rate 18 10/29/23 22:36 Blood Pressure 134/94 10/29/23 22:36 Pulse Oximetry 97 10/29/23 22:36 Oxygen Delivery Me thod Room Air 10/29/23 22:36 MDM - Animal Bite Medical Decision Making Physical exam completed and documented, we have provided wound care antibiotic ointment and sterile dressing to the area of concern. I did provide the patient Toradol intramuscular injection for her pain. Patient has requested Percocets or Ultram or some additional pain medication and I have advised her that given her medical complaints it is unwarranted in addition the patient states that she is on buprenorphine. Medical Records I reviewed the patient's medical records. No radiology studies performed this visit Discharge Plan Discharge Patient Disposition: Home Clinical Impression: Acute pain of right lower extremity, Abrasion, right lower leg, initial encounter Condition: Stable Prescriptions: No Action buprenorphine-naloxone 8-2 mg film 1 film sublingual BID Qty: 60 1RF paroxetine HCl 40 mg tablet 40 mg PO BEDTIME 30 Days Qty: 30 2RF trazodone 150 mg tablet 600 mg PO BEDTIME PRN (Reason: insomnia) 30 Days Qty: 120 2RF bupropion HCl [Wellbutrin XL] 150 mg tablet extended release 24 hr 150 mg PO QAM Qty: 30 2RF propranolol 20 mg tablet 20 mg PO BID PRN (Reason: anxiety) Qty: 60 2RF Ventolin HFA 90 mcg/actuation HFA aerosol inhaler 1 - 2 puff INHALATION Q4H PRN (Reason: Shortness Of Breath) metoclopramide HCl [Reglan] 10 mg tablet 10 mg PO Q6H PRN (Reason: nausea and vomiting) Qty: 20 0RF tizanidine 4 mg Capsule 4 mg PO Q8H PRN (Reason: Spasms) 15 Days Qty: 45 1RF naproxen 500 mg tablet 500 mg PO Q12H PRN (Reason: pain) Qty: 20 0RF Discharge Orders: Discharge ED (Routine); Ordered 10/29/23 Ordered By: Nathan Martinez Referrals: Willard Ham MD [Primary Care Provider] - Discharge Diet: Usual diet Discharge Activity: Resume usual activity Patient Instructions: Opioid Safety, Pain Management Activity Restrictions/Additional Instructions: Activity Restrictions/Additional Instructions: Thank you for choosing [facility] for your healthcare needs today. Please realize that you were seen in the Emergency Department and that we are providing you with an emergency medical screening exam and this may not be a complete and all inclusive of all the testing and or medical work-up that you may need to determine your ailment or severity of your illness. It is very important that you follow-up as instructed with your Primary care provider or Specialist for additional evaluation and to discuss your medical treatment plan. 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
[2023-10-29] MEDS: ketorolac 60 mg/2 mL INJ IM (23:59)
[2023-10-30] VITALS: PULSE 88; RESP 18; O2SAT 98
[2023-10-30] MEDS: neomycin-poly-bacitracin oint 28 gm 1 APPLIC TOPICAL (00:23)
[2023-10-30 00:30] VITALS: BP 139/88; PULSE 84; RESP 18; O2SAT 98
== END 2023-10-30 00:31 | disposition home or self-care (01) ==
PROVIDERS: Emergency Provider Internal Medicine; PCP Family Medicine
DX: M79.604 Pain in right leg (principal); S80.811A Abrasion, right lower leg, initial encounter; F17.210 Nicotine dependence, cigarettes, uncomplicated; I10 Essential (primary) hypertension; E11.9 Type 2 diabetes mellitus without complications; X58.XXXA Exposure to other specified factors, initial encounter
CPT/HCPCS: 96372; 99284; J1885

== ENCOUNTER 2023-11-07 15:12 | Emergency (ER) | payer MEDICAID, SELFPAY ==
[2023-11-07 15:36] VITALS: BP 161/96; PULSE 69; RESP 15; O2SAT 94
--- NOTE | 2023-11-07 16:14 | W.ED.BACK ---
HPI - Back Pain/Injury General: Chief Complaint: Back Pain/Injury Stated Complaint: right side hip and leg pain Time Seen by Provider: 11/07/23 16:03 Source: patient Mode of arrival: ambulatory Limitations: no limitations History of Present Illness: Patient is a 42-year-old female presents to ED today with complaint of back pain radiating down her entire right hip and leg. She has not noticed any color or temperature changes to the leg. No swelling. States she has a longstanding history of chronic back pain. Patient states she was taken off of her gabapentin due to an intentional overdose. She states since then her nerve and back pain has been worse. She also has chronic knee pain. MD elicited complaint: back pain Pertinent past history: prior back pain Onset (ago): day(s) Timing: constant Severity: moderate Similar Symptoms Previously: Yes Quality: burning Location: lumbar spine and right lower back Radiation: right leg below the knee Exacerbating factors: movement and walking Relieving factors: none Associated symptoms: Reports no associated symptoms; Deny chills, dysuria, fatigue or fever(s) Work related injury: No Review of Systems Const: Denies: fever(s), chills, fatigue or malaise : Denies: flank pain or dysuria Musc: Reports: back pain and extremity pain; Denies: neck pain, extremity swelling, joint redness, joint warmth or limited range of motion Skin/Breast: Denies: rash Neuro: Denies: headache(s), numbness in extremities, weakness in extremities or sensory changes PFS ED PFSH: Medical History History of attempted suicide Psychiatric care Opiate abuse, episodic Methamphetamine dependence, episodic Pyuria Morbid obesity with BMI of 50.0-59.9, adult Fatty infiltration of liver Abnormal uterine bleeding (AUB) Urinary incontinence Asthma Benign essential HTN Uncontrolled type 2 diabetes mellitus, without long-term current use of insulin Hypothyroidism DDD (degenerative disc disease) Intervertebral disc disorders with radiculopathy, lumbar region Bilateral primary osteoarthritis of knee Gender dysphoria Nicotine dependence, cigarettes, uncomplicated Major depressive disorder, recurrent severe without psychotic features Surgical History History of ureter stent S/P laparoscopic appendectomy (04/19/20) History of endometrial biopsy (04/13/20) benign endocervical epithelium Hx of foot surgery Family History Mother Diabetes Sister Cancer ovarian Other Dementia Heart disease Hypertension Psychiatric illness Denies family history of CAD (coronary artery disease) Clotting disorder Hyperlipidemia Chronic kidney disease (CKD) Anesthesia complication Bleeding disorder Lung disease Stroke Social History Smoking and tobacco/nicotine status: current every day tobacco/nicotine user cigarettes Packs smoked per day: 0.50 Alcohol intake: current Alcohol intake frequency: other Alcohol type: beer and hard liquor Substance/Drug Use: former Date of last use: 2017 Lives independently: Yes Household members: other Details: partner and her mom Marital status: Single Number of children: 0 Current occupational status: disabled Current gender identity: Male and Other Gender Identity Comment: Goes by Saul, considering formal transition Special hero needs: No Agree to transfusion: Yes Physical Exam Const: COMMON NORMALS: no acute distress, patient oriented x3, no limitations and alert GENERAL APPEARANCE: cooperative NUTRITIONAL APPEARANCE: obese morbidly obese Back/Pelvis: COMMON NORMALS: thoracic and lumbar spine normal to inspection THORACIC SPINE/UPPER BACK: Yes thoracic ROM normal, No thoracic spinal tenderness, No paraspinal muscle tenderness and No paraspinal muscle spasm LUMBAR SPINE/LOWER BACK: Yes ROM limited, Yes lumbar spinal tenderness, Yes paraspinal muscle tenderness, No paraspinal muscle spasm and Yes straight leg raise positive right PELVIS: Yes buttocks normal and Yes sciatic notch tenderness on the right SACROILIAC JOINTS: Yes SI joints normal SACRUM: no tenderness COCCYX: no tenderness Extremity: COMMON NORMALS: normal to inspection, full ROM, capillary refill normal, no joint enlargement, no clubbing, cyanosis or edema, no calf tenderness and no pedal edema GENERAL: Yes normal exam except as noted Neuro: COMMON NORMALS: patient oriented x3, moves all extremities, no focal motor deficits, no sensory deficits noted and gait normal SENSORIUM/ORIENTATION: Yes alert MOTOR EXAM: 5/5 motor strength present throughout Course Vital Signs: Vital signs: Vital Signs Pulse Rate 69 11/07/23 15:36 Respiratory Rate 15 11/07/23 15:36 Blood Pressure 161/96 11/07/23 15:36 Pulse Oximetry 94 11/07/23 15:36 Oxygen Delivery Me thod Room Air 11/07/23 15:36 MDM - Back Pain/Injury Medical Decision Making Patient here with lower back pain with radicular pain into her right lower extremity. She was given anti-inflammatories and steroids prior to discharge. Place her on steroid taper at home. Recommend follow-up with primary care. Return ED precautions given. Differential Diagnosis Likely lumbar radiculopathy, sciatica and strain of lumbar region Medical Records I reviewed the patient's medical records. Labs I reviewed the patient's lab results. No radiology studies performed this visit Discharge Plan Discharge Patient Disposition: Home Clinical Impression: Acute right lumbar radiculopathy Condition: Stable Prescriptions: New Medrol (Jean-Pierre) 4 mg tablets,dose pack See Rx Instructions .ROUTE .COMPLEX Qty: 21 0RF Rx Instructions: orally per package directions No Action buprenorphine-naloxone 8-2 mg film 1 film sublingual BID Qty: 60 1RF paroxetine HCl 40 mg tablet 40 mg PO BEDTIME 30 Days Qty: 30 2RF trazodone 150 mg tablet 600 mg PO BEDTIME PRN (Reason: insomnia) 30 Days Qty: 120 2RF bupropion HCl [Wellbutrin XL] 150 mg tablet extended release 24 hr 150 mg PO QAM Qty: 30 2RF propranolol 20 mg tablet 20 mg PO BID PRN (Reason: anxiety) Qty: 60 2RF Ventolin HFA 90 mcg/actuation HFA aerosol inhaler 1 - 2 puff INHALATION Q4H PRN (Reason: Shortness Of Breath) metoclopramide HCl [Reglan] 10 mg tablet 10 mg PO Q6H PRN (Reason: nausea and vomiting) Qty: 20 0RF tizanidine 4 mg Capsule 4 mg PO Q8H PRN (Reason: Spasms) 15 Days Qty: 45 1RF naproxen 500 mg tablet 500 mg PO Q12H PRN (Reason: pain) Qty: 20 0RF Discharge Orders: Discharge ED (Routine); Ordered 11/07/23 Ordered By: Leah Bishop Referrals: Willard Ham MD [Primary Care Provider] - Coding 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
[2023-11-07] MEDS: dexamethasone 10 mg/mL INJ IM (16:17)
[2023-11-07] MEDS: ketorolac 60 mg/2 mL INJ IM (16:17)
[2023-11-07 16:24] VITALS: BP 161/96; PULSE 69; RESP 15; TEMP 36.6; O2SAT 94
== END 2023-11-07 16:25 | disposition home or self-care (01) ==
PROVIDERS: Emergency Provider Physician Assistant; PCP Family Medicine
DX: M54.16 Radiculopathy, lumbar region (principal); F17.210 Nicotine dependence, cigarettes, uncomplicated; I10 Essential (primary) hypertension; E11.9 Type 2 diabetes mellitus without complications
CPT/HCPCS: 96372; 99284; J1100; J1885

== ENCOUNTER 2023-11-11 17:41 | Emergency (ER) | payer MEDICAID, SELFPAY ==
[2023-11-11 17:44] VITALS: BP 113/80; PULSE 99; RESP 16; TEMP 36.5; O2SAT 94
[2023-11-11 19:40] VITALS: BP 127/78; PULSE 87; RESP 18; O2SAT 95
--- NOTE | 2023-11-11 19:44 | XRR_ITS ---
PROCEDURE INFORMATION: Exam: XR Thoracic Spine Exam date and time: 11/11/2023 8:22 PM Age: 42 years old Clinical indication: Pain in thoracic spine; Without myelpathy or radiculopathy; Additional info: Upper back pain TECHNIQUE: Imaging protocol: Radiologic exam of the thoracic spine. Views: 3 views. COMPARISON: CR XR thoracic spine 3V* [id number] 12/01/2022 9:47 AM FINDINGS: Bones/joints: Prominent scoliosis involves the midthoracic spine. Convexity is to the right with an apex at the C6-C7 level. Degree of angulation measures 22 degrees between T4 and T9. No acute fracture or subluxation noted. Soft tissues: Unremarkable. XR/XR thoracic spine 3V* [id number] IMPRESSION: Thoracic scoliosis
--- NOTE | 2023-11-11 19:44 | XRR_ITS ---
PROCEDURE INFORMATION: Exam: XR Cervical Spine Exam date and time: 11/11/2023 8:16 PM Age: 42 years old Clinical indication: Neck pain; Additional info: Upper back pain TECHNIQUE: Imaging protocol: Radiologic exam of the cervical spine. Views: 2 or 3 views. COMPARISON: CT neck w con* [id number] 01/29/2018 8:24 PM FINDINGS: Bones/joints: Multiple levels of degenerative disc disease and vertebral body spurring can be seen. No fracture or subluxation noted. Soft tissues: Unremarkable. XR/XR cervical spine 3V* [id number] IMPRESSION: 1. No acute findings. 2. Multilevel arthritic changes
[2023-11-11 19:48] VITALS: RESP 18; O2SAT 93
[2023-11-11] MEDS: morphine 4 mg/mL SDV 1 mL IM ×2 (19:48→21:23)
[2023-11-11] MEDS: orphenadrine 30 mg/mL Inj 2 mL 60 MG IM (19:50)
--- NOTE | 2023-11-11 20:50 | ED_ITS ---
Documented by User: JONO Fung 11/11/23 20:56 HPI - Back Pain/Injury General: Chief Complaint: Back Pain/Injury Stated Complaint: back pain Time Seen by Provider: 11/11/23 18:34 Source: patient Mode of arrival: wheelchair Limitations: no limitations History of Present Illness: Patient is a 42-year-old female presenting to the emergency department complaining of mid back pain. She does note a history of chronic back pain, though has never followed up with spine surgery or had any MRIs done. She is not reporting any red flag back symptoms such as bowel or bladder incontinence or distal paresthesias. No fevers. She notes her pain is primarily along the spine though she has some pain on both sides of her mid back. She has been taking Tylenol and ibuprofen, with minimal relief. She does request something stronger for pain at this time. No recent trauma. She notes her pain is worse with any movement, though no other specific exacerbating factors. MD elicited complaint: back pain Pertinent past history: prior back pain Timing: constant Severity: moderate Similar Symptoms Previously: Yes Location: thoracic spine Radiation: none Exacerbating factors: movement Relieving factors: none Associated symptoms: Deny abdominal pain, chills, dysuria, fatigue, fever(s), nausea or vomiting Review of Systems General: Reports: 10 or more systems reviewed and unremarkable except in HPI and below Const: Denies: fever(s), chills or fatigue Eyes: Denies: change in vision ENMT: Denies: throat pain, ear or mastoid pain or nasal discharge Card: Denies: chest pain, palpitations, swelling of feet/ankles or lightheadedness Resp: Denies: dyspnea, productive cough or wheezing GI: Denies: abdominal pain, nausea, vomiting, diarrhea or constipation : Denies: flank pain, difficulty voiding, dysuria or urinary frequency Musc: Reports: back pain; Denies: neck pain or joint pain Skin/Breast: Denies: rash Neuro: Denies: headache(s), numbness in extremities or weakness in extremities PFSH ED PFSH: Medical History History of attempted suicide Psychiatric care Opiate abuse, episodic Methamphetamine dependence, episodic Pyuria Morbid obesity with BMI of 50.0-59.9, adult Fatty infiltration of liver Abnormal uterine bleeding (AUB) Urinary incontinence Asthma Benign essential HTN Uncontrolled type 2 diabetes mellitus, without long-term current use of insulin Hypothyroidism DDD (degenerative disc disease) Intervertebral disc disorders with radiculopathy, lumbar region Bilateral primary osteoarthritis of knee Gender dysphoria Nicotine dependence, cigarettes, uncomplicated Major depressive disorder, recurrent severe without psychotic features Surgical History History of ureter stent S/P laparoscopic appendectomy (04/19/20) History of endometrial biopsy (04/13/20) benign endocervical epithelium Hx of foot surgery Family History Mother Diabetes Sister Cancer ovarian Other Dementia Heart disease Hypertension Psychiatric illness Denies family history of CAD (coronary artery disease) Clotting disorder Hyperlipidemia Chronic kidney disease (CKD) Anesthesia complication Bleeding disorder Lung disease Stroke Social History Smoking and tobacco/nicotine status: current every day tobacco/nicotine user cigarettes Packs smoked per day: 0.50 Alcohol intake: current Alcohol intake frequency: other Alcohol type: beer and hard liquor Substance/Drug Use: former Date of last use: 2017 Lives independently: Yes Household members: other Details: partner and her mom Marital status: Single Number of children: 0 Current occupational status: disabled Current gender identity: Male and Other Gender Identity Comment: Goes by Saul, considering formal transition Special hero needs: No Agree to transfusion: Yes Physical Exam Const: COMMON NORMALS: no acute distress, patient oriented x3 and no limitations GENERAL APPEARANCE: cooperative, comfortable and well developed NUTRITIONAL APPEARANCE: obese morbidly obese ORIENTATION/CONSCIOUSNESS: Yes awake, Yes oriented to person, Yes oriented to place and Yes oriented to time HENMT: COMMON NORMALS: normocephalic, atraumatic and hearing grossly normal bilaterally HEAD & SCALP: normocephalic and atraumatic Eye: COMMON NORMALS: Equal, round and reactive pupils present, EOMs intact bilaterally and conjunctivae normal CONJUNCTIVA: Yes conjunctivae normal PUPIL: Yes Equal, round and reactive pupils present Neck/C-Spine: COMMON NORMALS: full ROM, supple and no JVD Resp: COMMON NORMALS: normal respiratory effort, No retractions, No use of accessory muscles and clear to auscultation bilaterally AUSCULTATION: clear to auscultation bilaterally Cardio: COMMON NORMALS: no JVD, regular rate, regular rhythm, No clicks present (Cardio), No murmurs present (Cardio) and No rub (Cardio) RATE: regular rate RHYTHM: regular rhythm Back/Pelvis: COMMON NORMALS: thoracic and lumbar spine normal to inspection THORACIC SPINE/UPPER BACK: Yes normal to inspection, Yes ROM limited, Yes pain with ROM, Yes thoracic spinal tenderness and Yes paraspinal muscle tenderness Thoracic paraspinal muscle tenderness: bilateral LUMBAR SPINE/LOWER BACK: Yes normal to inspection and Yes lumbar ROM normal Extremity: COMMON NORMALS: normal to inspection, full ROM, capillary refill normal, no joint enlargement and no clubbing, cyanosis or edema NARRATIVE EXTREMITY EXAM: DTRs intact Neuro: COMMON NORMALS: patient oriented x3, CN's II-XII intact bilaterally, moves all extremities, no focal motor deficits and no sensory deficits noted SENSORIUM/ORIENTATION: Yes oriented to person, Yes oriented to place and Yes oriented to time Psych: COMMON NORMALS: mental status grossly normal and Normal thought process present THOUGHT PROCESS: Normal thought process present Skin: COMMON NORMALS: no rashes or lesions noted GENERAL SKIN EXAM: no rashes or lesions noted Course Vital Signs: Vital signs: Vital Signs Temperature 97.7 F 11/11/23 17:44 Pulse Rate 87 11/11/23 19:40 Respiratory Rate 18 11/11/23 21:23 Blood Pressure 127/78 11/11/23 19:40 Pulse Oximetry 93 11/11/23 19:48 Oxygen Delivery Me thod Room Air 11/11/23 19:40 MDM - Back Pain/Injury Medical Decision Making This patient seen and evaluated for acute on chronic mid back pain. She did note a history of low back pain, has never followed up with spine surgeon for any further imaging. She did not report any red flag back symptoms. On arrival patient's vitals normal and she has remained stable throughout her ED course. Examination ultimately unremarkable though she did have some mild tenderness to palpation about the thoracic spine and parathoracic muscles. I did order x-ray of thoracic spine as well as cervical spine, both of which were negative for any acute findings though demonstrated some thoracic scoliosis that could potentially be a source of the patient's pain. However I did inform her that I referred her to Ortho spine for follow-up and potentially more imaging to further evaluate her chronic back pain. Her pain was ultimately eliminated in the ED with shot of morphine and muscle relaxer, patient notes she is ready to go home and will follow-up as instructed. Return precautions given and all other questions and concerns addressed at this time. Labs Radiology Impressions Cervical Spine X-Ray 11/11/23 19:44 IMPRESSION: 1. No acute findings. 2. Multilevel arthritic changes Thoracic Spine X-Ray 11/11/23 19:44 IMPRESSION: Thoracic scoliosis All radiology interpretation(s) finalized by discharge Discharge Plan Discharge Patient Disposition: Home Clinical Impression: Back pain Qualifiers: Back pain location: thoracic back pain Chronicity: chronic Back pain laterality: midline Qualified Code(s): M54.6 - Pain in thoracic spine Condition: Stable Prescriptions: No Action buprenorphine-naloxone 8-2 mg film 1 film sublingual BID Qty: 60 1RF paroxetine HCl 40 mg tablet 40 mg PO BEDTIME 30 Days Qty: 30 2RF trazodone 150 mg tablet 600 mg PO BEDTIME PRN (Reason: insomnia) 30 Days Qty: 120 2RF bupropion HCl [Wellbutrin XL] 150 mg tablet extended release 24 hr 150 mg PO QAM Qty: 30 2RF propranolol 20 mg tablet 20 mg PO BID PRN (Reason: anxiety) Qty: 60 2RF Ventolin HFA 90 mcg/actuation HFA aerosol inhaler 1 - 2 puff INHALATION Q4H PRN (Reason: Shortness Of Breath) Medrol (Jean-Pierre) 4 mg tablets,dose pack See Rx Instructions .ROUTE .COMPLEX Qty: 21 0RF Rx Instructions: orally per package directions metoclopramide HCl [Reglan] 10 mg tablet 10 mg PO Q6H PRN (Reason: nausea and vomiting) Qty: 20 0RF tizanidine 4 mg Capsule 4 mg PO Q8H PRN (Reason: Spasms) 15 Days Qty: 45 1RF naproxen 500 mg tablet 500 mg PO Q12H PRN (Reason: pain) Qty: 20 0RF Discharge Orders: Discharge ED (Routine); Ordered 11/11/23 Ordered By: Jon Chand Referrals: Willard Ham MD [Primary Care Provider] - Discharge Diet: Usual diet Discharge Activity: Increase activity as tolerated Patient Instructions: Back Pain (ED), Opioid Safety, Pain Management Activity Restrictions/Additional Instructions: Follow-up with orthopedics as instructed. Continue to alternate Tylenol and ibuprofen for any pain. Gentle range of motion exercises as tolerated. Return with any new or concerning symptoms you may have. 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 [employer] Documented by User: Azar Valle DO 11/12/23 07:22 HPI - Back Pain/Injury General: Chief Complaint: Back Pain/Injury Stated Complaint: back pain Time Seen by Provider: 11/11/23 18:34 PFSH ED PFSH: Medical History History of attempted suicide Psychiatric care Opiate abuse, episodic Methamphetamine dependence, episodic Pyuria Morbid obesity with BMI of 50.0-59.9, adult Fatty infiltration of liver Abnormal uterine bleeding (AUB) Urinary incontinence Asthma Benign essential HTN Uncontrolled type 2 diabetes mellitus, without long-term current use of insulin Hypothyroidism DDD (degenerative disc disease) Intervertebral disc disorders with radiculopathy, lumbar region Bilateral primary osteoarthritis of knee Gender dysphoria Nicotine dependence, cigarettes, uncomplicated Major depressive disorder, recurrent severe without psychotic features Surgical History History of ureter stent S/P laparoscopic appendectomy (04/19/20) History of endometrial biopsy (04/13/20) benign endocervical epithelium Hx of foot surgery Family History Mother Diabetes Sister Cancer ovarian Other Dementia Heart disease Hypertension Psychiatric illness Denies family history of CAD (coronary artery disease) Clotting disorder Hyperlipidemia Chronic kidney disease (CKD) Anesthesia complication Bleeding disorder Lung disease Stroke Social History Smoking and tobacco/nicotine status: current every day tobacco/nicotine user cigarettes Packs smoked per day: 0.50 Alcohol intake: current Alcohol intake frequency: other Alcohol type: beer and hard liquor Substance/Drug Use: former Date of last use: 2017 Lives independently: Yes Household members: other Details: partner and her mom Marital status: Single Number of children: 0 Current occupational status: disabled Current gender identity: Male and Other Gender Identity Comment: Goes by Saul, considering formal transition Special hero needs: No Agree to transfusion: Yes Course Vital Signs: Vital signs: Vital Signs Temperature 97.7 F 11/11/23 17:44 Pulse Rate 87 11/11/23 19:40 Respiratory Rate 18 11/11/23 21:23 Blood Pressure 127/78 11/11/23 19:40 Pulse Oximetry 93 11/11/23 19:48 Oxygen Delivery Me thod Room Air 11/11/23 19:40 MDM - Back Pain/Injury Medical Decision Making This patient seen and evaluated for acute on chronic mid back pain. She did note a history of low back pain, has never followed up with spine surgeon for any further imaging. She did not report any red flag back symptoms. On arrival patient's vitals normal and she has remained stable throughout her ED course. Examination ultimately unremarkable though she did have some mild tenderness to palpation about the thoracic spine and parathoracic muscles. I did order x-ray of thoracic spine as well as cervical spine, both of which were negative for any acute findings though demonstrated some thoracic scoliosis that could potentially be a source of the patient's pain. However I did inform her that I referred her to Ortho spine for follow-up and potentially more imaging to further evaluate her chronic back pain. Her pain was ultimately eliminated in the ED with shot of morphine and muscle relaxer, patient notes she is ready to go home and will follow-up as instructed. Return precautions given and all other questions and concerns addressed at this time. Chart reviewed Labs Radiology Impressions Cervical Spine X-Ray 11/11/23 19:44 IMPRESSION: 1. No acute findings. 2. Multilevel arthritic changes Thoracic Spine X-Ray 11/11/23 19:44 IMPRESSION: Thoracic scoliosis Discharge Plan Discharge Patient Disposition: Home Clinical Impression: Back pain Qualifiers: Back pain location: thoracic back pain Chronicity: chronic Back pain laterality: midline Qualified Code(s): M54.6 - Pain in thoracic spine Condition: Stable Prescriptions: No Action buprenorphine-naloxone 8-2 mg film 1 film sublingual BID Qty: 60 1RF paroxetine HCl 40 mg tablet 40 mg PO BEDTIME 30 Days Qty: 30 2RF trazodone 150 mg tablet 600 mg PO BEDTIME PRN (Reason: insomnia) 30 Days Qty: 120 2RF bupropion HCl [Wellbutrin XL] 150 mg tablet extended release 24 hr 150 mg PO QAM Qty: 30 2RF propranolol 20 mg tablet 20 mg PO BID PRN (Reason: anxiety) Qty: 60 2RF Ventolin HFA 90 mcg/actuation HFA aerosol inhaler 1 - 2 puff INHALATION Q4H PRN (Reason: Shortness Of Breath) Medrol (Jean-Pierre) 4 mg tablets,dose pack See Rx Instructions .ROUTE .COMPLEX Qty: 21 0RF Rx Instructions: orally per package directions metoclopramide HCl [Reglan] 10 mg tablet 10 mg PO Q6H PRN (Reason: nausea and vomiting) Qty: 20 0RF tizanidine 4 mg Capsule 4 mg PO Q8H PRN (Reason: Spasms) 15 Days Qty: 45 1RF naproxen 500 mg tablet 500 mg PO Q12H PRN (Reason: pain) Qty: 20 0RF Discharge Orders: Discharge ED (Routine); Ordered 11/11/23 Ordered By: Jon Chand Referrals: Willard Ham MD [Primary Care Provider] - Discharge Diet: Usual diet Discharge Activity: Increase activity as tolerated Patient Instructions: Back Pain (ED), Opioid Safety, Pain Management Activity Restrictions/Additional Instructions: Follow-up with orthopedics as instructed. Continue to alternate Tylenol and ibuprofen for any pain. Gentle range of motion exercises as tolerated. Return with any new or concerning symptoms you may have. 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
[2023-11-11 21:23] VITALS: RESP 18
--- NOTE | 2023-11-14 12:19 | DCPLANNER ---
Called Ortho and spoke with Lorie, Lorie said she would contact the patient and arrange an appointment date and time.
== END 2023-11-11 21:27 | disposition home or self-care (01) ==
PROVIDERS: Emergency Provider Physician Assistant; PCP Family Medicine
DX: M54.6 Pain in thoracic spine (principal); F17.210 Nicotine dependence, cigarettes, uncomplicated; I10 Essential (primary) hypertension; E11.9 Type 2 diabetes mellitus without complications
CPT/HCPCS: 72040; 72072; 96372; 99284; J2270; J2360

== ENCOUNTER 2023-11-15 19:50 | Emergency (ER) | payer MEDICAID, SELFPAY ==
--- NOTE | 2023-11-15 19:54 | XRR_ITS ---
PROCEDURE INFORMATION: Exam: XR Right Knee Exam date and time: 11/15/2023 8:38 PM Age: 42 years old Clinical indication: Right; Patient HX: RT knee pain; No known injury TECHNIQUE: Imaging protocol: Radiologic exam of the right knee. Views: 3 views. COMPARISON: CR XR knees AP WB w BI lmt ORTH 03/17/2023 2:15 PM FINDINGS: Bones/joints: Negative for fracture. [id number] tricompartmental DJD most significant in the lateral compartment. Soft tissues: Normal. XR/XR knee RT 3V* [id number] IMPRESSION: No acute findings. [id number] tricompartmental DJD most significant in the lateral compartment.
[2023-11-15 20:08] VITALS: BP 136/88; PULSE 85; RESP 17; TEMP 36.9; O2SAT 92; BMI 40.6
--- NOTE | 2023-11-15 21:24 | ED_ITS ---
Documented by User: JONO Fung 11/15/23 21:30 HPI - Extremity Problem General: Chief complaint: Extremity Injury, Lower Stated complaint: Right knee pain Time Seen by Provider: 11/15/23 20:35 Source: patient Mode of arrival: ambulatory Limitations: no limitations History of Present Illness: Patient is a 42-year-old female presenting to the emergency department with right knee pain just prior to arrival. Patient notes she was bringing a friend to the emergency department to get checked out and banged her knee on the car door while getting out. She has no prior injuries or surgeries to the knee. No bruising or deformities noted. Patient has multiple recent emergency department visits. Associated symptoms: Deny chest pain, fever(s) or rash Review of Systems General: Reports: 10 or more systems reviewed and unremarkable except in HPI a nd below Const: Denies: fever(s), chills or fatigue Eyes: Denies: change in vision ENMT: Denies: throat pain, ear or mastoid pain or nasal discharge Card: Denies: chest pain, palpitations, swelling of feet/ankles or lightheadedness Resp: Denies: dyspnea, productive cough or wheezing GI: Denies: abdominal pain, nausea, vomiting, diarrhea or constipation : Denies: flank pain, difficulty voiding, dysuria or urinary frequency Musc: Reports: joint pain (Right knee); Denies: neck pain or back pain Skin/Breast: Denies: rash Neuro: Denies: headache(s), numbness in extremities or weakness in extremities PFSH ED PFSH: Medical History History of attempted suicide Psychiatric care Opiate abuse, episodic Methamphetamine dependence, episodic Pyuria Morbid obesity with BMI of 50.0-59.9, adult Fatty infiltration of liver Abnormal uterine bleeding (AUB) Urinary incontinence Asthma Benign essential HTN Uncontrolled type 2 diabetes mellitus, without long-term current use of insulin Hypothyroidism DDD (degenerative disc disease) Intervertebral disc disorders with radiculopathy, lumbar region Bilateral primary osteoarthritis of knee Gender dysphoria Nicotine dependence, cigarettes, uncomplicated Major depressive disorder, recurrent severe without psychotic features Surgical History History of ureter stent S/P laparoscopic appendectomy (04/19/20) History of endometrial biopsy (04/13/20) benign endocervical epithelium Hx of foot surgery Family History Mother Diabetes Sister Cancer ovarian Other Dementia Heart disease Hypertension Psychiatric illness Denies family history of CAD (coronary artery disease) Clotting disorder Hyperlipidemia Chronic kidney disease (CKD) Anesthesia complication Bleeding disorder Lung disease Stroke Social History Smoking and tobacco/nicotine status: current every day tobacco/nicotine user cigarettes Packs smoked per day: 0.50 Alcohol intake: current Alcohol intake frequency: other Alcohol type: beer and hard liquor Substance/Drug Use: former Date of last use: 2017 Lives independently: Yes Household members: other Details: partner and her mom Marital status: Single Number of children: 0 Current occupational status: disabled Current gender identity: Male and Other Gender Identity Comment: Goes by Saul, considering formal transition Special hero needs: No Agree to transfusion: Yes Physical Exam Const: COMMON NORMALS: no acute distress, patient oriented x3 and no limitations GENERAL APPEARANCE: cooperative, comfortable and well developed ORIENTATION/CONSCIOUSNESS: Yes awake, Yes oriented to person, Yes oriented to place and Yes oriented to time HENMT: COMMON NORMALS: normocephalic, atraumatic and hearing grossly normal bilaterally HEAD & SCALP: normocephalic and atraumatic Eye: COMMON NORMALS: Equal, round and reactive pupils present, EOMs intact bilaterally and conjunctivae normal CONJUNCTIVA: Yes conjunctivae normal PUPIL: Yes Equal, round and reactive pupils present Neck/C-Spine: COMMON NORMALS: full ROM, supple and no JVD Resp: COMMON NORMALS: normal respiratory effort, No retractions, No use of accessory muscles and clear to auscultation bilaterally AUSCULTATION: clear to auscultation bilaterally Cardio: COMMON NORMALS: no JVD, regular rate, regular rhythm, No clicks present (Cardio), No murmurs present (Cardio) and No rub (Cardio) RATE: regular rate RHYTHM: regular rhythm Extremity: COMMON NORMALS: normal to inspection, full ROM and capillary refill normal NARRATIVE EXTREMITY EXAM: No signs of trauma, bruising, edema, or other overlying skin changes to the right knee. Mild tenderness to palpation about the medial aspect. Neuro: COMMON NORMALS: patient oriented x3, moves all extremities, no focal motor deficits and no sensory deficits noted SENSORIUM/ORIENTATION: Yes oriented to person, Yes oriented to place and Yes oriented to time Psych: COMMON NORMALS: mental status grossly normal and Normal thought process present THOUGHT PROCESS: Normal thought process present Skin: COMMON NORMALS: no rashes or lesions noted GENERAL SKIN EXAM: no rashes or lesions noted Course Vital Signs: Vital signs: Vital Signs Temperature 98.5 F 11/15/23 20:08 Pulse Rate 85 11/15/23 20:08 Respiratory Rate 14 11/15/23 21:32 Blood Pressure 136/88 11/15/23 20:08 Pulse Oximetry 92 11/15/23 20:08 Oxygen Delivery Me thod Room Air 11/15/23 20:08 MDM - Extremity (Nontraumatic) Medical Decision Making Patient seen for right knee pain while getting a friend of the cough for emergency department evaluation earlier today. Knee examination normal other than some mild tenderness palpation about the medial aspect. X-ray did not demonstrate any fractures or dislocations. Patient has multiple visits to the ED recently. I did inform her to use ice and alternate Tylenol ibuprofen. Return precautions given. Lab Data Radiology Impressions Knee X-Ray 11/15/23 19:54 IMPRESSION: No acute findings. [id number] tricompartmental DJD most significant in the lateral compartment. All radiology interpretation(s) finalized by discharge Discharge Plan Discharge Patient Disposition: Home Clinical Impression: Contusion of knee, right Qualifiers: Encounter type: initial encounter Qualified Code(s): S80.01XA - Contusion of right knee, initial encounter Condition: Stable Prescriptions: No Action buprenorphine-naloxone 8-2 mg film 1 film sublingual BID Qty: 60 1RF paroxetine HCl 40 mg tablet 40 mg PO BEDTIME 30 Days Qty: 30 2RF trazodone 150 mg tablet 600 mg PO BEDTIME PRN (Reason: insomnia) 30 Days Qty: 120 2RF bupropion HCl [Wellbutrin XL] 150 mg tablet extended release 24 hr 150 mg PO QAM Qty: 30 2RF propranolol 20 mg tablet 20 mg PO BID PRN (Reason: anxiety) Qty: 60 2RF Ventolin HFA 90 mcg/actuation HFA aerosol inhaler 1 - 2 puff INHALATION Q4H PRN (Reason: Shortness Of Breath) Medrol (Jean-Pierre) 4 mg tablets,dose pack See Rx Instructions .ROUTE .COMPLEX Qty: 21 0RF Rx Instructions: orally per package directions metoclopramide HCl [Reglan] 10 mg tablet 10 mg PO Q6H PRN (Reason: nausea and vomiting) Qty: 20 0RF tizanidine 4 mg Capsule 4 mg PO Q8H PRN (Reason: Spasms) 15 Days Qty: 45 1RF naproxen 500 mg tablet 500 mg PO Q12H PRN (Reason: pain) Qty: 20 0RF Discharge Orders: Discharge ED (Routine); Ordered 11/15/23 Ordered By: Jon Chand Referrals: Willard Ham MD [Primary Care Provider] - Discharge Diet: Usual diet Discharge Activity: Increase activity as tolerated Patient Instructions: Opioid Safety, Pain Management Activity Restrictions/Additional Instructions: Ice as needed. Alternate Tylenol and ibuprofen for pain. Follow-up with primary care as needed. Return with any new or worsening symptoms. Gentle range of motion exercises as tolerated. Coding Level of Care Code ED Airworthiness Safety Inspector for [employer]g Fwd Documented by User: Azar Valle DO 11/19/23 09:19 HPI - Extremity Problem General: Chief complaint: Extremity Injury, Lower Stated complaint: Right knee pain Time Seen by Provider: 11/15/23 20:35 PFS ED PFSH: Medical History History of attempted suicide Psychiatric care Opiate abuse, episodic Methamphetamine dependence, episodic Pyuria Morbid obesity with BMI of 50.0-59.9, adult Fatty infiltration of liver Abnormal uterine bleeding (AUB) Urinary incontinence Asthma Benign essential HTN Uncontrolled type 2 diabetes mellitus, without long-term current use of insulin Hypothyroidism DDD (degenerative disc disease) Intervertebral disc disorders with radiculopathy, lumbar region Bilateral primary osteoarthritis of knee Gender dysphoria Nicotine dependence, cigarettes, uncomplicated Major depressive disorder, recurrent severe without psychotic features Surgical History History of ureter stent S/P laparoscopic appendectomy (04/19/20) History of endometrial biopsy (04/13/20) benign endocervical epithelium Hx of foot surgery Family History Mother Diabetes Sister Cancer ovarian Other Dementia Heart disease Hypertension Psychiatric illness Denies family history of CAD (coronary artery disease) Clotting disorder Hyperlipidemia Chronic kidney disease (CKD) Anesthesia complication Bleeding disorder Lung disease Stroke Social History Smoking and tobacco/nicotine status: current every day tobacco/nicotine user cigarettes Packs smoked per day: 0.50 Alcohol intake: current Alcohol intake frequency: other Alcohol type: beer and hard liquor Substance/Drug Use: former Date of last use: 2017 Lives independently: Yes Household members: other Details: partner and her mom Marital status: Single Number of children: 0 Current occupational status: disabled Current gender identity: Male and Other Gender Identity Comment: Goes by Saul, considering formal transition Special hero needs: No Agree to transfusion: Yes Course Vital Signs: Vital signs: Vital Signs Temperature 98.5 F 11/15/23 20:08 Pulse Rate 85 11/15/23 20:08 Respiratory Rate 14 11/15/23 21:32 Blood Pressure 136/88 11/15/23 20:08 Pulse Oximetry 92 11/15/23 20:08 Oxygen Delivery Me thod Room Air 11/15/23 20:08 MDM - Extremity (Nontraumatic) Medical Decision Making Patient seen for right knee pain while getting a friend of the cough for emergency department evaluation earlier today. Knee examination normal other than some mild tenderness palpation about the medial aspect. X-ray did not demonstrate any fractures or dislocations. Patient has multiple visits to the ED recently. I did inform her to use ice and alternate Tylenol ibuprofen. Return precautions given. Chart reviewed Lab Data Radiology Impressions Knee X-Ray 11/15/23 19:54 IMPRESSION: No acute findings. [id number] tricompartmental DJD most significant in the lateral compartment. Discharge Plan Discharge Patient Disposition: Home Clinical Impression: Contusion of knee, right Qualifiers: Encounter type: initial encounter Qualified Code(s): S80.01XA - Contusion of right knee, initial encounter Condition: Stable Prescriptions: No Action buprenorphine-naloxone 8-2 mg film 1 film sublingual BID Qty: 60 1RF paroxetine HCl 40 mg tablet 40 mg PO BEDTIME 30 Days Qty: 30 2RF trazodone 150 mg tablet 600 mg PO BEDTIME PRN (Reason: insomnia) 30 Days Qty: 120 2RF bupropion HCl [Wellbutrin XL] 150 mg tablet extended release 24 hr 150 mg PO QAM Qty: 30 2RF propranolol 20 mg tablet 20 mg PO BID PRN (Reason: anxiety) Qty: 60 2RF Ventolin HFA 90 mcg/actuation HFA aerosol inhaler 1 - 2 puff INHALATION Q4H PRN (Reason: Shortness Of Breath) Medrol (Jean-Pierre) 4 mg tablets,dose pack See Rx Instructions .ROUTE .COMPLEX Qty: 21 0RF Rx Instructions: orally per package directions metoclopramide HCl [Reglan] 10 mg tablet 10 mg PO Q6H PRN (Reason: nausea and vomiting) Qty: 20 0RF tizanidine 4 mg Capsule 4 mg PO Q8H PRN (Reason: Spasms) 15 Days Qty: 45 1RF naproxen 500 mg tablet 500 mg PO Q12H PRN (Reason: pain) Qty: 20 0RF Discharge Orders: Discharge ED (Routine); Ordered 11/15/23 Ordered By: Jon Chand Referrals: Willard Ham MD [Primary Care Provider] - Discharge Diet: Usual diet Discharge Activity: Increase activity as tolerated Patient Instructions: Opioid Safety, Pain Management Activity Restrictions/Additional Instructions: Ice as needed. Alternate Tylenol and ibuprofen for pain. Follow-up with primary care as needed. Return with any new or worsening symptoms. Gentle range of motion exercises as tolerated. Coding Level of Care Code ED Airworthiness Safety Inspector for Milagro Lao
[2023-11-15 21:32] VITALS: RESP 14
== END 2023-11-15 21:34 | disposition home or self-care (01) ==
PROVIDERS: Emergency Provider Physician Assistant; PCP Family Medicine
DX: S80.01XA Contusion of right knee, initial encounter (principal); F17.210 Nicotine dependence, cigarettes, uncomplicated; I10 Essential (primary) hypertension; E11.9 Type 2 diabetes mellitus without complications; W22.09XA Striking against other stationary object, initial encounter
CPT/HCPCS: 73562; 99283

== ENCOUNTER → 2023-11-20 14:14 | Outpatient (BNVA) | payer MEDICAID, SELFPAY | PROVIDERS: PCP Family Medicine; Referring Provider Physician Assistant; Visit Provider Orthopaedic Surgery | DX: M54.42 Lumbago with sciatica, left side; G89.29 Other chronic pain; M51.35 Other intervertebral disc degeneration, thoracolumbar region | CPT/HCPCS: 72110; 99204 ==

== ENCOUNTER 2023-12-16 20:51 | Emergency (ER) | payer MEDICAID, SELFPAY ==
[2023-12-16 20:52] VITALS: BMI 40.6
[2023-12-16 21:22] VITALS: BP 130/81; PULSE 79; RESP 20; TEMP 36.6; O2SAT 97
--- NOTE | 2023-12-16 22:36 | ED_ITS ---
HPI - Back Pain/Injury General: Chief Complaint: Back Pain/Injury Stated Complaint: BACK PAIN Time Seen by Provider: 12/16/23 22:30 History of Present Illness: Patient has chronic low back pain and presents today by ambulance with report of chronic low back pain. She states she is taken some ibuprofen and Tylenol. She reports by ambulance. Her vitals are completely normal on presentation. She has no focal motor deficits. No bowel or bladder loss of continence. No saddle numbness. When I first talked to her I had mentioned that is this her usual chronic back pain problems. I had read her notes and I discussed her with another provider before she had arrived. As of is leaving she said you are can asked me about my urine. Send okay I can check a urinalysis. She became angry and legs to her voice at me. Told her I would not talk to her while she is being angry like this. And I left the room Review of Systems Narrative: Constitutional symptoms: Negative except as documented in HPI. Skin symptoms: Negative except as documented in HPI. Eye symptoms: Negative except as documented in HPI. ENMT symptoms: Negative except as documented in HPI. Respiratory symptoms: Negative except as documented in HPI. Cardiovascular symptoms: Negative except as documented in HPI. Gastrointestinal symptoms: Negative except as documented in HPI. Genitourinary symptoms: Negative except as documented in HPI. Musculoskeletal symptoms: Negative except as documented in HPI. Neurologic symptoms: Negative except as documented in HPI. Psychiatric symptoms: Negative except as documented in HPI. Endocrine symptoms: Negative except as documented in HPI. [facility] ED PFSH: Medical History History of attempted suicide Psychiatric care Opiate abuse, episodic Methamphetamine dependence, episodic Pyuria Morbid obesity with BMI of 50.0-59.9, adult Fatty infiltration of liver Abnormal uterine bleeding (AUB) Urinary incontinence Asthma Benign essential HTN Uncontrolled type 2 diabetes mellitus, without long-term current use of insulin Hypothyroidism DDD (degenerative disc disease) Intervertebral disc disorders with radiculopathy, lumbar region Bilateral primary osteoarthritis of knee Gender dysphoria Nicotine dependence, cigarettes, uncomplicated Major depressive disorder, recurrent severe without psychotic features Surgical History History of ureter stent S/P laparoscopic appendectomy (04/19/20) History of endometrial biopsy (04/13/20) benign endocervical epithelium Hx of foot surgery Family History Mother Diabetes Sister Cancer ovarian Other Dementia Heart disease Hypertension Psychiatric illness Denies family history of CAD (coronary artery disease) Clotting disorder Hyperlipidemia Chronic kidney disease (CKD) Anesthesia complication Bleeding disorder Lung disease Stroke Social History Smoking and tobacco/nicotine status: current every day tobacco/nicotine user cigarettes Packs smoked per day: 0.50 Alcohol intake: current Alcohol intake frequency: other Alcohol type: beer and hard liquor Substance/Drug Use: former Date of last use: 2017 Lives independently: Yes Household members: other Details: partner and her mom Marital status: Single Number of children: 0 Current occupational status: disabled Current gender identity: Male and Other Gender Identity Comment: Goes by Saul, considering formal transition Special hero needs: No Agree to transfusion: Yes Physical Exam Narrative: EXAM NARRATIVE: General: Alert, no acute distress. Skin: warm and dry Head: Normocephalic Neck: Trachea midline Eye: Extraocular movements are intact. Ears, nose, mouth and throat: Oral mucosa moist Respiratory: Respirations are non-labored Musculoskeletal: Normal ROM Neurological: Alert and oriented, No focal neurological deficit observed. Psychiatric: Cooperative, appropriate mood & affect. Course Vital Signs: Vital signs: Vital Signs Temperature 98 F 12/16/23 21:22 Pulse Rate 79 12/16/23 21:22 Respiratory Rate 20 H 12/16/23 21:22 Blood Pressure 130/81 12/16/23 21:22 Pulse Oximetry 97 12/16/23 21:22 MDM - Back Pain/Injury Medical Decision Making Medical decision making: Differential diagnosis including but not limited to and based on the above HPI, review of systems and physical exam: Patient says she is having urinary symptoms so urinalysis was ordered. Orders placed to evaluate differential diagnosis based on the above differential, HPI and physical exam Lab Review: Laboratory results were reviewed and interpreted by myself the emergency room physician. Patient does have an early urinary tract infection. I reviewed the patient's medical record. I have also spoken with other providers and staff who all report that they will not take care of this patient because of her aggressive behavior and threatening speech. She became very argumentative with me immediately and so I left the room and told her I would not talk to her if she was going to talk to me that way. I did order urinalysis and steroids and Toradol. She refused the Toradol and says it did not work. When I went back to talk to her I discussed with her that I would not be able to write any narcotics. She became angry. Then she became very tearful. She continued to try to argue why she needed narcotics. I am definitely not comfortable giving any sort of narcotics. Reexamination: Patient remains in no distress. She has no increased work of breathing. Her vital signs are normal. She is sitting in the bed watching TV whenever I return to her room. She has no focal motor deficits. As above she is first argumentative, then angry, then tearful requesting narcotic pain medication Assessment and plan: Urinary tract infection Chronic back pain Malingering Drug-seeking behavior -Omnicef, Decadron and Toradol ordered in the emergency room. - Discharged home - Discussed plan with patient. Answered any questions. - Evaluation and treatment of this problem were appropriate in the emergency setting. Labs Laboratory Results Lactic Acid 0.6 mmol/L (0.5-2.2) 12/16/23 23:39 Urine Color Yellow (Yellow) 12/16/23 23:17 Urine Appearance Clear (CLEAR) 12/16/23 23:17 Urine pH 5 (5-7) 12/16/23 23:17 Ur Specific Butner 1.020 (1.005-1.030) 12/16/23 23:17 Urine Protein Neg (Negative) 12/16/23 23:17 Urine Glucose (UA) Norm (Normal) 12/16/23 23:17 Urine Ketones Negative (Negative) 12/16/23 23:17 Urine Blood Neg (Negative) 12/16/23 23:17 Urine Nitrate Negative (Negative) 12/16/23 23:17 Urine Bilirubin Neg (Negative) 12/16/23 23:17 Urine Urobilinogen Neg mg/dL (Negative) 12/16/23 23:17 Ur Leukocyte Esterase 1+ (Negative) H 12/16/23 23:17 Urine RBC 0-4 /hpf (0-2) H 12/16/23 23:17 Urine WBC 5-10 /hpf (0-5) H 12/16/23 23:17 Ur Squamous Epith Cells 15-25 /hpf (0-5) H 12/16/23 23:17 Amorphous Sediment Not Reportable 12/16/23 23:17 Urine Bacteria 1+ /hpf (NONE) H 12/16/23 23:17 Urine Mucus 1+ /hpf 12/16/23 23:17 Urine Opiates Screen Negative ng/mL (Negative) 12/16/23 23:17 Ur Barbiturates Screen Negative ng/mL (Negative) 12/16/23 23:17 Ur Phencyclidine Scrn Negative ng/mL (Negative) 12/16/23 23:17 Ur Amphetamines Screen Negative ng/mL (Negative) 12/16/23 23:17 U Benzodiazepines Scrn Negative ng/mL (Negative) 12/16/23 23:17 Urine Cocaine Screen Negative ng/mL (Negative) 12/16/23 23:17 U Marijuana (THC) Screen Positive ng/mL (Negative) H 12/16/23 23:17 No radiology studies performed this visit Discharge Plan Discharge Patient Disposition: Home Clinical Impression: Malingering, Drug-seeking behavior, Chronic back pain, Urinary tract infection Condition: Stable Prescriptions: New dexamethasone 6 mg tablet 6 mg PO DAILY 5 Days Qty: 5 0RF cephalexin 500 mg capsule 500 mg PO BID 5 Days Qty: 10 0RF diclofenac sodium 50 mg tablet,delayed release (DR/EC) 50 mg PO Q12H Qty: 20 0RF No Action buprenorphine-naloxone 8-2 mg film 1 film sublingual BID Qty: 60 1RF paroxetine HCl 40 mg tablet 40 mg PO BEDTIME 30 Days Qty: 30 2RF trazodone 150 mg tablet 600 mg PO BEDTIME PRN (Reason: insomnia) 30 Days Qty: 120 2RF bupropion HCl [Wellbutrin XL] 150 mg tablet extended release 24 hr 150 mg PO QAM Qty: 30 2RF propranolol 20 mg tablet 20 mg PO BID PRN (Reason: anxiety) Qty: 60 2RF gabapentin 600 mg tablet 600 mg PO TID 30 Days Qty: 90 0RF Ventolin HFA 90 mcg/actuation HFA aerosol inhaler 1 - 2 puff INHALATION Q4H PRN (Reason: Shortness Of Breath) Medrol (Jean-Pierre) 4 mg tablets,dose pack See Rx Instructions .ROUTE .COMPLEX Qty: 21 0RF Rx Instructions: orally per package directions metoclopramide HCl [Reglan] 10 mg tablet 10 mg PO Q6H PRN (Reason: nausea and vomiting) Qty: 20 0RF tizanidine 4 mg Capsule 4 mg PO Q8H PRN (Reason: Spasms) 15 Days Qty: 45 1RF naproxen 500 mg tablet 500 mg PO Q12H PRN (Reason: pain) Qty: 20 0RF Discharge Orders: Discharge ED (Routine); Ordered 12/17/23 Ordered By: Erika Armenta Referrals: Willard Ham MD [Primary Care Provider] - Discharge Diet: Usual diet Discharge Activity: Increase activity as tolerated Patient Instructions: Opioid Safety, Pain Management Activity Restrictions/Additional Instructions: Thank you for choosing [facility] for your healthcare needs today. Please realize this is an emergency room and that we are providing you with a medical screening exam and this may not be complete and all inclusive of all the testing and or work up that you may need to determine your ailment or severity of your illness. You have been screened and evaluated and felt safe for discharge. Health conditions do change or evolve sometimes and as such it is important that you follow up with your Primary Doctor to be re checked, 3-5 days is a general good time frame for follow up. You are always welcome to return to the ED for re assessment if your symptoms are worsening or you have new concerns Coding Level of Care Code ED Street Roller Engineer for Milagro Lao
[2023-12-16] MEDS: dexamethasone 10 mg/mL INJ IVP (22:45)
--- NOTE | 2023-12-16 22:53 | PC.NURSE ---
Patient refused Toradol, stating, That does nothing for me. I need something stronger. Dr Armenta notified of patient's refusal of pain medication at this time.
[2023-12-17 00:06] LABS: Bilirubin Urine Neg (Negative); Blood Urine Neg (Negative); Glucose Urine UA Norm (Normal); Ketones Urine Negative (Negative); Leukocyte Esterase Urine 1+ (Negative); Nitrate Urine Negative (Negative); Protein Urine Neg (Negative); Urine Appearance Clear (CLEAR); Urine Color Yellow (Yellow); Urobilinogen Urine Neg (Negative); pH Urine 5 (5-7)
[2023-12-17 00:07] LABS: Add Urine Culture? No; Bacteria Urine 1+ /hpf; Mucus Urine 1+ /hpf; RBC Urine 0-4 /hpf (0-2); Squamous Epithelial Cell Urine 15-25 /hpf (0-5)
[2023-12-17 00:09] LABS: Amphetamines Screen Urine Negative (Negative); Barbiturates Screen Urine Negative (Negative); Benzodiazepines Screen Urine Negative (Negative); Cocaine Screen Urine Negative (Negative); Opiate Screen Urine Negative (Negative); PCP Screen Urine Negative (Negative); THC Screen Urine Positive (Negative)
[2023-12-17 00:11] LABS: Lactic Sepsis W/Reflex 0.6 mmol/L (0.5-2.2)
[2023-12-17] MEDS: cefdinir 300 MG CAPSULE PO (00:17)
== END 2023-12-17 00:28 | disposition home or self-care (01) ==
PROVIDERS: Emergency Provider Emergency Medicine; PCP Family Medicine
DX: G89.29 Other chronic pain (principal); M54.50 Low back pain, unspecified; N39.0 Urinary tract infection, site not specified; Z76.5 Malingerer [conscious simulation]; I10 Essential (primary) hypertension; E11.9 Type 2 diabetes mellitus without complications; F17.210 Nicotine dependence, cigarettes, uncomplicated
CPT/HCPCS: 36415; 80306; 81001; 83605; 96374; 99284; J1100

== ENCOUNTER 2023-12-19 16:00 | Emergency (ER) | payer MEDICAID, SELFPAY ==
[2023-12-19 16:02] VITALS: BP 144/90; PULSE 82; RESP 16; TEMP 36.8; O2SAT 96; BMI 40.6
--- NOTE | 2023-12-19 16:04 | ED.C_ITS ---
Documented by User: JONO Jackson 12/19/23 16:57 HPI - Psych 2 General: Chief Complaint: Psychiatric Symptoms Stated Complaint: mhe Time Seen by Provider: 12/19/23 16:03 Source: patient Mode of arrival: ambulatory Limitations: no limitations History of Present Illness: Patient is a 43-year-old female who is extremely well-known to our emergency department here for suicidal ideations. Patient states she has felt suicidal over the past 4 days. She states I just cannot do it anymore . She states she feels worthless and useless. She feels hopeless regarding her life. She states she suffers from chronic pain. Patient does see Dr. Mares at [facility]-last appointment with them was approximately a month ago. Patient has no specific plan currently to kill herself. She does state she has a previous suicide attempt by overdose. MD complaint: suicidal ideation and feels depressed Onset (ago): day(s) Duration: constant History of same: Yes Relieving factors: none Exacerbating factors: none Associated psychiatric symptoms: depression and suicidal ideation Associated symptoms: Reports depression and suicidal ideation; Deny auditory hallucinations, visual hallucinations or homicidal ideation Treatments prior to arrival: none If self harm: admits thoughts of self harm Review of Systems 2 Const: Denies: fever(s), chills, body aches, fatigue or malaise Card: Denies: chest pain, palpitations, lightheadedness or syncope Resp: Denies: dyspnea GI: Denies: abdominal pain, nausea, vomiting or diarrhea Skin/Breast: Denies: rash Neuro: Denies: headache(s) Psych: Reports: anxiety, depression, hopelessness, loss of interest, irritability and suicidal ideation; Denies: visual hallucinations, auditory hallucinations or homicidal ideation PFSH ED 2 PFSH: Medical History History of attempted suicide Psychiatric care Opiate abuse, episodic Methamphetamine dependence, episodic Pyuria Morbid obesity with BMI of 50.0-59.9, adult Fatty infiltration of liver Abnormal uterine bleeding (AUB) Urinary incontinence Asthma Benign essential HTN Uncontrolled type 2 diabetes mellitus, without long-term current use of insulin Hypothyroidism DDD (degenerative disc disease) Intervertebral disc disorders with radiculopathy, lumbar region Bilateral primary osteoarthritis of knee Gender dysphoria Nicotine dependence, cigarettes, uncomplicated Major depressive disorder, recurrent severe without psychotic features Surgical History History of ureter stent S/P laparoscopic appendectomy (04/19/20) History of endometrial biopsy (04/13/20) benign endocervical epithelium Hx of foot surgery Family History Mother Diabetes Sister Cancer ovarian Other Dementia Heart disease Hypertension Psychiatric illness Denies family history of CAD (coronary artery disease) Clotting disorder Hyperlipidemia Chronic kidney disease (CKD) Anesthesia complication Bleeding disorder Lung disease Stroke Social History Smoking and tobacco/nicotine status: current every day tobacco/nicotine user cigarettes Packs smoked per day: 0.50 Alcohol intake: current Alcohol intake frequency: other Alcohol type: beer and hard liquor Substance/Drug Use: former Date of last use: 2017 Lives independently: Yes Household members: other Details: partner and her mom Marital status: Single Number of children: 0 Current occupational status: disabled Current gender identity: Male and Other Gender Identity Comment: Goes by Saul, considering formal transition Special hero needs: No Agree to transfusion: Yes Physical Exam 2 Const: COMMON NORMALS: no acute distress, patient oriented x3, no limitations, alert and well nourished GENERAL APPEARANCE: cooperative NUTRITIONAL APPEARANCE: obese ORIENTATION/CONSCIOUSNESS: Yes awake, Yes oriented to person, Yes oriented to place and Yes oriented to time Resp: COMMON NORMALS: normal respiratory effort and clear to auscultation bilaterally AUSCULTATION: clear to auscultation bilaterally Cardio: COMMON NORMALS: regular rate and regular rhythm RATE: regular rate RHYTHM: regular rhythm Neuro: COMMON NORMALS: patient oriented x3, moves all extremities, no focal motor deficits, no sensory deficits noted and gait normal S ENSORIUM/ORIENTATION: Yes alert, Yes oriented to person, Yes oriented to place and Yes oriented to time Psych: COMMON NORMALS: mental status grossly normal, Normal thought process present, cooperative, normal affect, speech normal, activity/motor behavior normal, denies hallucinations and denies homicidal ideation APPEARANCE: Yes grossly normal ATTITUDE: Yes calm ACTIVITY/MOTOR BEHAVIOR: Yes appropriate eye contact and No psychomotor agitation SPEECH: Yes normal speech MOOD & AFFECT: Yes tearful (at times) THOUGHT PROCESS: Normal thought process present THOUGHT CONTENT: Yes Suicidality present MEMORY/COGNITION: Yes memory grossly intact and Yes cognition grossly intact INSIGHT: Good insight present (Psych) JUDGEMENT: Good judgement present (Psych) Course 2 Vital Signs: Vital signs: Vital Signs Temperature 98.3 F 12/19/23 16:02 Pulse Rate 72 12/19/23 22:35 Respiratory Rate 18 12/19/23 22:35 Blood Pressure 165/88 12/19/23 22:35 Pulse Oximetry 96 12/19/23 22:35 Oxygen Delivery Me thod Room Air 12/19/23 22:35 MDM - Psych Medical Decision Making Patient was placed on a 96-hour hold due to her suicidal statements. We do not have any NPU beds here currently thus patient will require psychiatric transfer. Lab Data 12/19/23 16:32 12/19/23 16:32 Laboratory Results WBC 6.15 10^3/uL (3.29-11.43) 12/19/23 16:32 RBC 4.96 10^6/uL (3.85-5.65) 12/19/23 16:32 Hgb 14.50 g/dL (11.27-16.99) 12/19/23 16:32 Hct 44.6 % (36-47) 12/19/23 16:32 MCV 89.9 fl (85-98) 12/19/23 16:32 MCH 29.2 pg (27-33) 12/19/23 16:32 MCHC 32.5 g/dL (30-55) 12/19/23 16:32 RDW 14.3 % (12.1-15.1) 12/19/23 16:32 Plt Count 268 10^3/cmm (157-399) 12/19/23 16:32 MPV 10.2 fL (7.4-10.4) 12/19/23 16:32 Neut % (Auto) 57.2 % 12/19/23 16:32 Lymph % (Auto) 34.3 % 12/19/23 16:32 [place] % (Auto) 6.5 % 12/19/23 16:32 Eos % (Auto) 1.6 % 12/19/23 16:32 Baso % (Auto) 0.2 % 12/19/23 16:32 Neut # (Auto) 3.52 10^3/uL (1.8-7.7) 12/19/23 16:32 Lymph # (Auto) 2.1 10^3/uL (0.8-4.8) 12/19/23 16:32 [place] # (Auto) 0.4 10^3/uL (0.2-0.9) 12/19/23 16:32 Eos # (Auto) 0.1 10^3/uL (0.0-0.8) 12/19/23 16:32 Baso # (Auto) 0.0 10^3/uL (0.0-0.1) 12/19/23 16:32 Nucleated RBC % (auto) 0 % 12/19/23 16:32 Nucleated RBCs # 0.0 /100WBC 12/19/23 16:32 Sodium 137 mmol/L (136-145) 12/19/23 16:32 Potassium 3.9 mmol/L (3.5-5.1) 12/19/23 16:32 Chloride 99 mmol/L (98-107) 12/19/23 16:32 Carbon Dioxide 28 mmol/L (22-29) 12/19/23 16:32 Anion Gap 13.9 (5-19) 12/19/23 16:32 BUN 13 mg/dL (6-20) 12/19/23 16:32 Creatinine 0.8 mg/dL (0.5-0.9) 12/19/23 16:32 GFR Calculation 78.7 mL/min (90-130) L 12/19/23 16:32 Glucose 82 mg/dL (65-115) 12/19/23 16:32 Calculated Osmolality 283 mOsm/kg (285-295) L 12/19/23 16:32 Calcium 8.8 mg/dL (8.5-10.5) 12/19/23 16:32 Total Bilirubin 0.4 mg/dL (0.15-1.2) 12/19/23 16:32 AST 11 U/L (0-32) 12/19/23 16:32 ALT 7 U/L (0-33) 12/19/23 16:32 Alkaline Phosphatase 82 U/L (35-105) 12/19/23 16:32 Creatine Kinase 34 U/L (26-192) 12/19/23 16:32 Total Protein 7.3 g/dL (6.6-8.7) 12/19/23 16:32 Albumin 3.9 g/dL (3.5-5.2) 12/19/23 16:32 Globulin 3.4 g/dL (1.3-4.6) 12/19/23 16:32 TSH 4.05 uIU/mL (0.27-4.20) 12/19/23 16:32 HCG, Qual Negative (Negative) 12/19/23 16:32 Urine Color Yellow (Yellow) 12/19/23 16:27 Urine Appearance Clear (CLEAR) 12/19/23 16:27 Urine pH 5 (5-7) 12/19/23 16:27 Ur Specific [place] 1.015 (1.005-1.030) 12/19/23 16:27 Urine Protein Neg (Negative) 12/19/23 16:27 Urine Glucose (UA) Norm (Normal) 12/19/23 16:27 Urine Ketones Negative (Negative) 12/19/23 16:27 Urine Blood Neg (Negative) 12/19/23 16:27 Urine Nitrate Negative (Negative) 12/19/23 16:27 Urine Bilirubin Neg (Negative) 12/19/23 16:27 Urine Urobilinogen 1 mg/dL (Negative) H 12/19/23 16:27 Ur Leukocyte Esterase Negative (Negative) 12/19/23 16:27 Salicylates < 0.3 mg/dL (3-10) L 12/19/23 16:32 Urine Opiates Screen Positive ng/mL (Negative) H 12/19/23 16:27 Acetaminophen < 5.0 ug/mL (10-30) L 12/19/23 16:32 Ur Barbiturates Screen Negative ng/mL (Negative) 12/19/23 16:27 Ur Phencyclidine Scrn Negative ng/mL (Negative) 12/19/23 16:27 Ur Amphetamines Screen Negative ng/mL (Negative) 12/19/23 16:27 U Benzodiazepines Scrn Negative ng/mL (Negative) 12/19/23 16:27 Urine Cocaine Screen Negative ng/mL (Negative) 12/19/23 16:27 U Marijuana (THC) Screen Positive ng/mL (Negative) H 12/19/23 16:27 Ethyl Alcohol < 10 mg/dL (0-10) 12/19/23 16:32 Influenza Type A Ag negative (Negative) 12/19/23 17:51 Influenza Type B Ag negative (Negative) 12/19/23 17:51 RSV Antigen Negative (Negative) 12/19/23 17:51 SARS-CoV-2 Ag (Rapid) negative (Negative) 12/19/23 17:51 Discharge Plan Discharge Patient Disposition: er Psychiatric Hosp Clinical Impression: Suicidal ideation Condition: Stable Referrals: Willard Ham MD [Primary Care Provider] - Sign Out Sign Out Data: Patient Sign Out occurred on 12/19/23 at 17:02. Patient's care was discussed, and care was transferred from JONO Jackson to JONO Fung. Coding Level of Care Code ED Hris Administrator for Chg Fwd Documented by User: Azar Valle DO 12/20/23 15:09 HPI - Psych 2 General: Chief Complaint: Psychiatric Symptoms Stated Complaint: mhe Time Seen by Provider: 12/19/23 16:03 PFSH ED 2 PFSH: Medical History History of attempted suicide Psychiatric care Opiate abuse, episodic Methamphetamine dependence, episodic Pyuria Morbid obesity with BMI of 50.0-59.9, adult Fatty infiltration of liver Abnormal uterine bleeding (AUB) Urinary incontinence Asthma Benign essential HTN Uncontrolled type 2 diabetes mellitus, without long-term current use of insulin Hypothyroidism DDD (degenerative disc disease) Intervertebral disc disorders with radiculopathy, lumbar region Bilateral primary osteoarthritis of knee Gender dysphoria Nicotine dependence, cigarettes, uncomplicated Major depressive disorder, recurrent severe without psychotic features Surgical History History of ureter stent S/P laparoscopic appendectomy (04/19/20) History of endometrial biopsy (04/13/20) benign endocervical epithelium Hx of foot surgery Family History Mother Diabetes Sister Cancer ovarian Other Dementia Heart disease Hypertension Psychiatric illness Denies family history of CAD (coronary artery disease) Clotting disorder Hyperlipidemia Chronic kidney disease (CKD) Anesthesia complication Bleeding disorder Lung disease Stroke Social History Smoking and tobacco/nicotine status: current every day tobacco/nicotine user cigarettes Packs smoked per day: 0.50 Alcohol intake: current Alcohol intake frequency: other Alcohol type: beer and hard liquor Substance/Drug Use: former Date of last use: 2017 Lives independently: Yes Household members: other Details: partner and her mom Marital status: Single Number of children: 0 Current occupational status: disabled Current gender identity: Male and Other Gender Identity Comment: Goes by Saul, considering formal transition Special hero needs: No Agree to transfusion: Yes Course 2 Vital Signs: Vital signs: Vital Signs Temperature 98.3 F 12/19/23 16:02 Pulse Rate 72 12/19/23 22:35 Respiratory Rate 18 12/19/23 22:35 Blood Pressure 165/88 12/19/23 22:35 Pulse Oximetry 96 12/19/23 22:35 Oxygen Delivery Me thod Room Air 12/19/23 22:35 MDM - Psych Medical Decision Making Patient was placed on a 96-hour hold due to her suicidal statements. We do not have any NPU beds here currently thus patient will require psychiatric transfer. Chart reviewed and patient discussed with midlevel. Agree with assessment and plan. Patient will be transferred to [facility] in [facility]. Care assumed at change of shift. Is on a 96-hour hold was combative and EMS was unable to transfer last night. She is given Geodon and Ativan this morning EMS came to transfer the patient she is stable at this time. Medical Records I reviewed the patient's medical records. Lab Data I reviewed the patient's lab results. 12/19/23 16:32 12/19/23 16:32 Laboratory Results WBC 6.15 10^3/uL (3.29-11.43) 12/19/23 16:32 RBC 4.96 10^6/uL (3.85-5.65) 12/19/23 16:32 Hgb 14.50 g/dL (11.27-16.99) 12/19/23 16:32 Hct 44.6 % (36-47) 12/19/23 16:32 MCV 89.9 fl (85-98) 12/19/23 16:32 MCH 29.2 pg (27-33) 12/19/23 16:32 MCHC 32.5 g/dL (30-55) 12/19/23 16:32 RDW 14.3 % (12.1-15.1) 12/19/23 16:32 Plt Count 268 10^3/cmm (157-399) 12/19/23 16:32 MPV 10.2 fL (7.4-10.4) 12/19/23 16:32 Neut % (Auto) 57.2 % 12/19/23 16:32 Lymph % (Auto) 34.3 % 12/19/23 16:32 [place] % (Auto) 6.5 % 12/19/23 16:32 Eos % (Auto) 1.6 % 12/19/23 16:32 Baso % (Auto) 0.2 % 12/19/23 16:32 Neut # (Auto) 3.52 10^3/uL (1.8-7.7) 12/19/23 16:32 Lymph # (Auto) 2.1 10^3/uL (0.8-4.8) 12/19/23 16:32 [place] # (Auto) 0.4 10^3/uL (0.2-0.9) 12/19/23 16:32 Eos # (Auto) 0.1 10^3/uL (0.0-0.8) 12/19/23 16:32 Baso # (Auto) 0.0 10^3/uL (0.0-0.1) 12/19/23 16:32 Nucleated RBC % (auto) 0 % 12/19/23 16:32 Nucleated RBCs # 0.0 /100WBC 12/19/23 16:32 Sodium 137 mmol/L (136-145) 12/19/23 16:32 Potassium 3.9 mmol/L (3.5-5.1) 12/19/23 16:32 Chloride 99 mmol/L (98-107) 12/19/23 16:32 Carbon Dioxide 28 mmol/L (22-29) 12/19/23 16:32 Anion Gap 13.9 (5-19) 12/19/23 16:32 BUN 13 mg/dL (6-20) 12/19/23 16:32 Creatinine 0.8 mg/dL (0.5-0.9) 12/19/23 16:32 GFR Calculation 78.7 mL/min (90-130) L 12/19/23 16:32 Glucose 82 mg/dL (65-115) 12/19/23 16:32 Calculated Osmolality 283 mOsm/kg (285-295) L 12/19/23 16:32 Calcium 8.8 mg/dL (8.5-10.5) 12/19/23 16:32 Total Bilirubin 0.4 mg/dL (0.15-1.2) 12/19/23 16:32 AST 11 U/L (0-32) 12/19/23 16:32 ALT 7 U/L (0-33) 12/19/23 16:32 Alkaline Phosphatase 82 U/L (35-105) 12/19/23 16:32 Creatine Kinase 34 U/L (26-192) 12/19/23 16:32 Total Protein 7.3 g/dL (6.6-8.7) 12/19/23 16:32 Albumin 3.9 g/dL (3.5-5.2) 12/19/23 16:32 Globulin 3.4 g/dL (1.3-4.6) 12/19/23 16:32 TSH 4.05 uIU/mL (0.27-4.20) 12/19/23 16:32 HCG, Qual Negative (Negative) 12/19/23 16:32 Urine Color Yellow (Yellow) 12/19/23 16:27 Urine Appearance Clear (CLEAR) 12/19/23 16:27 Urine pH 5 (5-7) 12/19/23 16:27 Ur Specific [place] 1.015 (1.005-1.030) 12/19/23 16:27 Urine Protein Neg (Negative) 12/19/23 16:27 Urine Glucose (UA) Norm (Normal) 12/19/23 16: Urine Ketones Negative (Negative) 12/19/23 16: Urine Blood Neg (Negative) 12/19/23 16:27 Urine Nitrate Negative (Negative) 12/19/23 16:27 Urine Bilirubin Neg (Negative) 12/19/23 16:27 Urine Urobilinogen 1 mg/dL (Negative) H 12/19/23 16:27 Ur Leukocyte Esterase Negative (Negative) 12/19/23 16:27 Salicylates < 0.3 mg/dL (3-10) L 12/19/23 16:32 Urine Opiates Screen Positive ng/mL (Negative) H 12/19/23 16:27 Acetaminophen < 5.0 ug/mL (10-30) L 12/19/23 16:32 Ur Barbiturates Screen Negative ng/mL (Negative) 12/19/23 16:27 Ur Phencyclidine Scrn Negative ng/mL (Negative) 12/19/23 16:27 Ur Amphetamines Screen Negative ng/mL (Negative) 12/19/23 16:27 U Benzodiazepines Scrn Negative ng/mL (Negative) 12/19/23 16:27 Urine Cocaine Screen Negative ng/mL (Negative) 12/19/23 16:27 U Marijuana (THC) Screen Positive ng/mL (Negative) H 12/19/23 16:27 Ethyl Alcohol < 10 mg/dL (0-10) 12/19/23 16:32 Influenza Type A Ag negative (Negative) 12/19/23 17:51 Influenza Type B Ag negative (Negative) 12/19/23 17:51 RSV Antigen Negative (Negative) 12/19/23 17:51 SARS-CoV-2 Ag (Rapid) negative (Negative) 12/19/23 17:51 Discharge Plan Discharge Patient Disposition: Xfer Psychiatric Hosp Clinical Impression: Suicidal ideation Condition: Stable Referrals: Willard Ham MD [Primary Care Provider] - Sign Out Sign Out Data: Patient Sign Out occurred on 12/19/23 at 17:02. Patient's care was discussed, and care was transferred from JONO Jackson to JONO Fung. Coding Level of Care Code ED Hris Administrator for Chg Fwd Documented by User: JONO Fung 12/19/23 22:20 HPI - Psych 2 General: Chief Complaint: Psychiatric Symptoms Stated Complaint: mhe Time Seen by Provider: 12/19/23 16:03 [facility] ED 2 PFS: Medical History History of attempted suicide Psychiatric care Opiate abuse, episodic Methamphetamine dependence, episodic Pyuria Morbid obesity with BMI of 50.0-59.9, adult Fatty infiltration of liver Abnormal uterine bleeding (AUB) Urinary incontinence Asthma Benign essential HTN Uncontrolled type 2 diabetes mellitus, without long-term current use of insulin Hypothyroidism DDD (degenerative disc disease) Intervertebral disc disorders with radiculopathy, lumbar region Bilateral primary osteoarthritis of knee Gender dysphoria Nicotine dependence, cigarettes, uncomplicated Major depressive disorder, recurrent severe without psychotic features Surgical History History of ureter stent S/P laparoscopic appendectomy (04/19/20) History of endometrial biopsy (04/13/20) benign endocervical epithelium Hx of foot surgery Family History Mother Diabetes Sister Cancer ovarian Other Dementia Heart disease Hypertension Psychiatric illness Denies family history of CAD (coronary artery disease) Clotting disorder Hyperlipidemia Chronic kidney disease (CKD) Anesthesia complication Bleeding disorder Lung disease Stroke Social History Smoking and tobacco/nicotine status: current every day tobacco/nicotine user cigarettes Packs smoked per day: 0.50 Alcohol intake: current Alcohol intake frequency: other Alcohol type: beer and hard liquor Substance/Drug Use: former Date of last use: 2017 Lives independently: Yes Household members: other Details: partner and her mom Marital status: Single Number of children: 0 Current occupational status: disabled Current gender identity: Male and Other Gender Identity Comment: Goes by Saul, considering formal transition Special hero needs: No Agree to transfusion: Yes Course 2 Vital Signs: Vital signs: Vital Signs Temperature 98.3 F 12/19/23 16:02 Pulse Rate 72 12/19/23 22:35 Respiratory Rate 18 12/19/23 22:35 Blood Pressure 165/88 12/19/23 22:35 Pulse Oximetry 96 12/19/23 22:35 Oxygen Delivery Me thod Room Air 12/19/23 22:35 MDM - Psych Medical Decision Making Patient was placed on a 96-hour hold due to her suicidal statements. We do not have any NPU beds here currently thus patient will require psychiatric transfer. Chart reviewed and patient discussed with midlevel. Agree with assessment and plan. Patient will be transferred to [facility] in [facility]. Lab Data 12/19/23 16:32 12/19/23 16:32 Laboratory Results WBC 6.15 10^3/uL (3.29-11.43) 12/19/23 16:32 RBC 4.96 10^6/uL (3.85-5.65) 12/19/23 16:32 Hgb 14.50 g/dL (11.27-16.99) 12/19/23 16:32 Hct 44.6 % (36-47) 12/19/23 16:32 MCV 89.9 fl (85-98) 12/19/23 16:32 MCH 29.2 pg (27-33) 12/19/23 16:32 MCHC 32.5 g/dL (30-55) 12/19/23 16:32 RDW 14.3 % (12.1-15.1) 12/19/23 16:32 Plt Count 268 10^3/cmm (157-399) 12/19/23 16:32 MPV 10.2 fL (7.4-10.4) 12/19/23 16:32 Neut % (Auto) 57.2 % 12/19/23 16:32 Lymph % (Auto) 34.3 % 12/19/23 16:32 [place] % (Auto) 6.5 % 12/19/23 16:32 Eos % (Auto) 1.6 % 12/19/23 16:32 Baso % (Auto) 0.2 % 12/19/23 16:32 Neut # (Auto) 3.52 10^3/uL (1.8-7.7) 12/19/23 16:32 Lymph # (Auto) 2.1 10^3/uL (0.8-4.8) 12/19/23 16:32 [place] # (Auto) 0.4 10^3/uL (0.2-0.9) 12/19/23 16:32 Eos # (Auto) 0.1 10^3/uL (0.0-0.8) 12/19/23 16:32 Baso # (Auto) 0.0 10^3/uL (0.0-0.1) 12/19/23 16:32 Nucleated RBC % (auto) 0 % 12/19/23 16:32 Nucleated RBCs # 0.0 /100WBC 12/19/23 16:32 Sodium 137 mmol/L (136-145) 12/19/23 16:32 Potassium 3.9 mmol/L (3.5-5.1) 12/19/23 16:32 Chloride 99 mmol/L (98-107) 12/19/23 16:32 Carbon Dioxide 28 mmol/L (22-29) 12/19/23 16:32 Anion Gap 13.9 (5-19) 12/19/23 16:32 BUN 13 mg/dL (6-20) 12/19/23 16:32 Creatinine 0.8 mg/dL (0.5-0.9) 12/19/23 16:32 GFR Calculation 78.7 mL/min (90-130) L 12/19/23 16:32 Glucose 82 mg/dL (65-115) 12/19/23 16:32 Calculated Osmolality 283 mOsm/kg (285-295) L 12/19/23 16:32 Calcium 8.8 mg/dL (8.5-10.5) 12/19/23 16:32 Total Bilirubin 0.4 mg/dL (0.15-1.2) 12/19/23 16:32 AST 11 U/L (0-32) 12/19/23 16:32 ALT 7 U/L (0-33) 12/19/23 16:32 Alkaline Phosphatase 82 U/L (35-105) 12/19/23 16:32 Creatine Kinase 34 U/L (26-192) 12/19/23 16:32 Total Protein 7.3 g/dL (6.6-8.7) 12/19/23 16:32 Albumin 3.9 g/dL (3.5-5.2) 12/19/23 16:32 Globulin 3.4 g/dL (1.3-4.6) 12/19/23 16:32 TSH 4.05 uIU/mL (0.27-4.20) 12/19/23 16:32 HCG, Qual Negative (Negative) 12/19/23 16:32 Urine Color Yellow (Yellow) 12/19/23 16:27 Urine Appearance Clear (CLEAR) 12/19/23 16:27 Urine pH 5 (5-7) 12/19/23 16:27 Ur Specific [place] 1.015 (1.005-1.030) 12/19/23 16:27 Urine Protein Neg (Negative) 12/19/23 16:27 Urine Glucose (UA) Norm (Normal) 12/19/23 16:27 Urine Ketones Negative (Negative) 12/19/23 16:27 Urine Blood Neg (Negative) 12/19/23 16:27 Urine Nitrate Negative (Negative) 12/19/23 16:27 Urine Bilirubin Neg (Negative) 12/19/23 16:27 Urine Urobilinogen 1 mg/dL (Negative) H 12/19/23 16:27 Ur Leukocyte Esterase Negative (Negative) 12/19/23 16:27 Salicylates < 0.3 mg/dL (3-10) L 12/19/23 16:32 Urine Opiates Screen Positive ng/mL (Negative) H 12/19/23 16:27 Acetaminophen < 5.0 ug/mL (10-30) L 12/19/23 16:32 Ur Barbiturates Screen Negative ng/mL (Negative) 12/19/23 16:27 Ur Phencyclidine Scrn Negative ng/mL (Negative) 12/19/23 16:27 Ur Amphetamines Screen Negative ng/mL (Negative) 12/19/23 16:27 U Benzodiazepines Scrn Negative ng/mL (Negative) 12/19/23 16:27 Urine Cocaine Screen Negative ng/mL (Negative) 12/19/23 16:27 U Marijuana (THC) Screen Positive ng/mL (Negative) H 12/19/23 16:27 Ethyl Alcohol < 10 mg/dL (0-10) 12/19/23 16:32 Influenza Type A Ag negative (Negative) 12/19/23 17:51 Influenza Type B Ag negative (Negative) 12/19/23 17:51 RSV Antigen Negative (Negative) 12/19/23 17:51 SARS-CoV-2 Ag (Rapid) negative (Negative) 12/19/23 17:51 No radiology studies performed this visit Discharge Plan Discharge Patient Disposition: Xfer Psychiatric Hosp Clinical Impression: Suicidal ideation Condition: Stable Referrals: Willard Ham MD [Primary Care Provider] - Sign Out Sign Out Data: Patient Sign Out occurred on 12/19/23 at 17:02. Patient's care was discussed, and care was transferred from JONO Jackson to JONO Fung. Coding Level of Care Code ED Hris Administrator for Milagro Lao
[2023-12-19 16:09] VITALS: BP 144/90; PULSE 82; RESP 16; O2SAT 96
--- NOTE | 2023-12-19 16:17 | ECG_ITS ---
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 Measurements Intervals [place] Rate: 66 P: 70 NV: 212 QRS: 77 QRSD: 90 T: 66 QT: 366 QTc: 384 Interpretive Statements SINUS RHYTHM WITH FIRST DEGREE AV BLOCK Compared to ECG 02/10/2023 12:44:56 First degree AV block now present Electronically Signed On 12-19-2023 21:06:41 CDT by Saúl Dahl M.D. [email or web address] Venturesencompass health rehabilitation hospitalPowerCell Swedencleveland [id number]
[2023-12-19] MEDS: LORazepam 2 mg/mL INJ 10 mL MDV IM (16:29)
[2023-12-19] MEDS: diphenhydrAMINE 50 mg/mL SDV 1mL IM (16:29)
[2023-12-19 16:40] LABS: Basophils % 0.2 %; Eosinophils # 0.1 10^3/uL (0.0-0.8); Eosinophils % 1.6 %; Hematocrit 44.6 % (36-47); Lymphocytes # 2.1 10^3/uL (0.8-4.8); Lymphocytes % 34.3 %; Mean Corpuscular HGB Conc 32.5 g/dL (30-55); Mean Corpuscular Hemoglobin 29.2 pg (27-33); Mean Corpuscular Volume 89.9 fl (85-98); Mean Platelet Volume 10.2 fL (7.4-10.4); Monocytes # 0.4 10^3/uL (0.2-0.9); Monocytes % 6.5 %; Neutrophils # 3.52 10^3/uL (1.8-7.7); Neutrophils % 57.2 %; Nucleated Red Blood Cells % 0 %; Platelet Count 268 10^3/cmm (157-399); Red Blood Count 4.96 10^6/uL (3.85-5.65); Red Cell Distribution Width 14.3 % (12.1-15.1); White Blood Count 6.15 10^3/uL (3.29-11.43)
--- NOTE | 2023-12-19 17:12 | PC.NURSE ---
96 hr rights reviewed with patient @[id number] with assistance of [facility] wildlife conservation officer Bin. Pt verbalized understandment to rights. No verbalized concerns at this time made to HS. Copy of rights left with pt @bedside.
[2023-12-19 17:15] LABS: Alanine Aminotransferase 7 U/L (0-33); Albumin Level 3.9 g/dL (3.5-5.2); Alkaline Phosphatase 82 U/L (35-105); Anion Gap 13.9 (5-19); Aspartate Amino Transferase 11 U/L (0-32); Blood Urea Nitrogen 13 mg/dL (6-20); Calcium 8.8 mg/dL (8.5-10.5); Carbon Dioxide 28 mmol/L (22-29); Chloride 99 mmol/L (98-107); Creatinine Clr Calc Pharmacy 142.1468; Globulin 3.4 g/dL (1.3-4.6); Glomerular Filtration Rate 78.7 mL/min (90-130); Glucose 82 mg/dL (65-115); Osmolality Calculated 283 mOsm/kg (285-295); Potassium 3.9 mmol/L (3.5-5.1); Sodium 137 mmol/L (136-145); Thyroid Stimulating Hormone 4.05 uIU/mL (0.27-4.20); Total Bilirubin 0.4 mg/dL (0.15-1.2); Total Protein 7.3 g/dL (6.6-8.7)
[2023-12-19 17:16] LABS: Acetaminophen < 5.0 ug/mL (10-30); Alcohol Level < 10 mg/dL (0-10); Salicylate < 0.3 mg/dL (3-10)
[2023-12-19 17:20] LABS: HCG, Serum Qual Negative (Negative)
[2023-12-19 17:24] LABS: Add Urine Microscopic? NO; Charge for UA Resulting for Rev
[2023-12-19 17:27] LABS: Protein Urine Neg (Negative); Specific Gravity, Urine 1.015 (1.005-1.030); Urine Appearance Clear (CLEAR); Urine Color Yellow (Yellow); pH Urine 5 (5-7)
[2023-12-19 17:28] LABS: Bilirubin Urine Neg (Negative); Blood Urine Neg (Negative); Glucose Urine UA Norm (Normal); Ketones Urine Negative (Negative); Leukocyte Esterase Urine Negative (Negative); Nitrate Urine Negative (Negative); Urobilinogen Urine 1 mg/dL (Negative)
[2023-12-19 17:37] LABS: Amphetamines Screen Urine Negative (Negative); Barbiturates Screen Urine Negative (Negative); Benzodiazepines Screen Urine Negative (Negative); Cocaine Screen Urine Negative (Negative); Opiate Screen Urine Positive (Negative); PCP Screen Urine Negative (Negative); THC Screen Urine Positive (Negative)
[2023-12-19 18:17] LABS: Influenza A by IFA negative (Negative); Influenza B by IFA negative (Negative); SARS Covid-2 Antigen negative (Negative)
[2023-12-19 18:31] LABS: RSV Transfer Patient (ED) Negative (Negative)
--- NOTE | 2023-12-19 20:30 | PC.NURSE ---
MEAL PROVIDED PER PT REQUEST. PT REPORTS SHE WASN'T GIVEN A MEAL AT DINNER TIME. MEAL TRAY FOUND AT NURSE'S STATION FROM DAY SHIFT.
--- NOTE | 2023-12-19 21:00 | PC.NURSE ---
PT UP TO BATHROOM WITH STEADY GAIT, DENIES NEEDS AT THIS TIME, NO DISTRESS NOTE.
[2023-12-19 22:01] LABS: Creatine Phosphokinase 34 U/L (26-192)
[2023-12-19 22:35] VITALS: BP 165/88; PULSE 72; RESP 18; O2SAT 96
--- NOTE | 2023-12-19 22:35 | PC.NURSE ---
Nurse entered patient room to advise patient that the EMS crew has arrived to transport her to [place] [facility]. Patient immediately began crying and yelling that she was not going to be transported anywhere. Nurse explained to patient that [facility] neuropsych unit is at full capacity and patient is under a 96 hour hold for SI and needing psychiatric care that is unavailable here due to no beds available and will require transport to another facility. Pt advises I am being good, I can just sleep in this bed. Nurse advised pt that the ER is not a psychiatric facility and she can not stay in the ER for her 96 hour hold. Patient continues to yell and continues to state that she will not corporate with ER and EMS staff if they attempt to remove her from [facility]. The EMS crew present for transport is a BLS crew and is not capable of monitoring a chemically sedated patient or administering medications that would be needed to control psychiatric outbursts or side effects of psychiatric medications. Nurse spoke to EMS supervisory it specialist Ruben on the phone, Ruben has 2 ACLS units [facility], 1 of which is going to transfer a medically unstable pt from [facility] to [facility]. Ruben will be unable to release the other ACLS unit for this transfer because then there would be no ACLS units in the area for 911 requests. Ruben is agreeable to assigning an ACLS unit to this call first thing in the morning to complete this transport due to the likelihood of need for psychiatric medications/ACLS care. Pt was advised that the issue would be addressed in the morning. Pt resting in room with PSA supervision. Security and [employer] present for this encounter
[2023-12-20] MEDS: LORazepam 2 mg/mL INJ 10 mL MDV IM (06:43)
[2023-12-20] MEDS: ziprasidone 20 mg/mL SDV IM (06:43)
== END 2023-12-20 07:58 ==
PROVIDERS: Physician Assistant; Emergency Provider Physician Assistant; PCP Family Medicine
DX: R45.851 Suicidal ideations (principal); Z11.52 Encounter for screening for COVID-19; I10 Essential (primary) hypertension; E11.9 Type 2 diabetes mellitus without complications; F17.210 Nicotine dependence, cigarettes, uncomplicated
CPT/HCPCS: 36415; 80053; 80306; 80307; 81003; 82550; 84443; 84703; 85025; 87426; 87804; 87899; 93005; 96372; 99285; J1200; J2060; J3486

== ENCOUNTER 2024-03-10 09:16 | Inpatient (IN) | payer MEDICARE, MEDICAID, SELFPAY ==
--- NOTE | 2024-03-10 09:19 | ECG_ITS ---
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 Measurements Intervals [place] Rate: 95 P: 56 SC: 180 QRS: 59 QRSD: 88 T: 43 QT: 348 QTc: 438 Interpretive Statements SINUS RHYTHM Compared to ECG 12/19/2023 16:41:31 First degree AV block no longer present Electronically Signed On 03-11-2024 0:16:27 CDT by Jayshree Hutchinson M.D. [id number]
[2024-03-10 09:20] VITALS: BP 150/102; PULSE 98; RESP 22; O2SAT 99
[2024-03-10 09:37] VITALS: TEMP 36.7
[2024-03-10] MEDS: ibuprofen 800 mg tablet PO (09:53)
--- NOTE | 2024-03-10 09:55 | PC.NURSE ---
96 hour hold rights read and reviewed with patient. Patient verbalized understandings. Copy of rights given to patient.
[2024-03-10 09:58] LABS: Bilirubin Urine Negative (Negative); Blood Urine Negative (Negative); Glucose Urine UA Negative (Normal); Ketones Urine Negative (Negative); Leukocyte Esterase Urine Trace (Negative); Nitrate Urine Negative (Negative); Protein Urine Negative (Negative); Specific Gravity, Urine 1.018 (1.005-1.030); Urine Appearance Clear (CLEAR); Urine Color Yellow (Yellow)
[2024-03-10 10:02] LABS: Basophils % 0.1 %; Eosinophils # 0.1 10^3/uL (0.0-0.8); Eosinophils % 1.6 %; Hematocrit 40.3 % (36-47); Lymphocytes # 1.1 10^3/uL (0.8-4.8); Lymphocytes % 15.2 %; Mean Corpuscular HGB Conc 31.3 g/dL (30-55); Mean Corpuscular Hemoglobin 27.9 pg (27-33); Mean Corpuscular Volume 89.4 fl (85-98); Mean Platelet Volume 9.1 fL (7.4-10.4); Monocytes # 0.5 10^3/uL (0.2-0.9); Monocytes % 6.3 %; Neutrophils # 5.73 10^3/uL (1.8-7.7); Neutrophils % 76.4 %; Nucleated Red Blood Cells % 0 %; Platelet Count 260 10^3/cmm (157-399); Red Blood Count 4.51 10^6/uL (3.85-5.65); Red Cell Distribution Width 13.5 % (12.1-15.1)
[2024-03-10 10:03] LABS: Bacteria Urine None Seen /hpf; Hyaline Casts Urine 0.81 /lpf; RBC Urine 0-2 /hpf (0-2); Squamous Epithelial Cell Urine 0-5 /hpf (0-5); WBC Urine 0-5 /hpf (0-5)
[2024-03-10 10:07] LABS: Amphetamines Screen Urine Negative (Negative); Barbiturates Screen Urine Negative (Negative); Benzodiazepines Screen Urine Negative (Negative); Cocaine Screen Urine Negative (Negative); Opiate Screen Urine Negative (Negative); PCP Screen Urine Negative (Negative); THC Screen Urine Negative (Negative)
[2024-03-10 10:14] LABS: HCG, Serum Qual Negative (Negative)
--- NOTE | 2024-03-10 10:18 | PC.PHAR ---
Pts' most current med list differs from rx bottles and pts recollection of what she is/should be taking. Med rec completed from bottles and current med list, taking into consideration, pt's viewpoint.
[2024-03-10 10:30] LABS: Alanine Aminotransferase 10 U/L (0-33); Albumin Level 3.9 g/dL (3.5-5.2); Alkaline Phosphatase 95 U/L (35-105); Anion Gap 16.8 (5-19); Aspartate Amino Transferase 14 U/L (0-32); Blood Urea Nitrogen 17 mg/dL (6-20); Calcium 8.8 mg/dL (8.5-10.5); Carbon Dioxide 26 mmol/L (22-29); Chloride 104 mmol/L (98-107); Creatinine Clr Calc Pharmacy 160.5139; Glomerular Filtration Rate 78.7 mL/min (90-130); Glucose 124 mg/dL (65-115); Osmolality Calculated 299 mOsm/kg (285-295); Potassium 3.8 mmol/L (3.5-5.1); Sodium 143 mmol/L (136-145); Thyroid Stimulating Hormone 4.55 uIU/mL (0.27-4.20); Total Bilirubin 0.4 mg/dL (0.15-1.2); Total Protein 7.9 g/dL (6.6-8.7)
--- NOTE | 2024-03-10 10:30 | ED.C_ITS ---
HPI - Psych 2 General: Chief Complaint: Psychiatric Symptoms Stated Complaint: Weakness Time Seen by Provider: 03/10/24 09:19 History of Present Illness: 43-year-old female with a history of mor bid obesity hypertension, diabetes, hypothyroidism and depressive disorder with history of suicidal ideation. She presents to the emergency room by ambulance. Apparently she was recently discharged from a psychiatric facility and is homeless and was going back to a [facility] but apparently was not allowed back there at which point she called an ambulance because she was suicidal. When she arrives here she says she is unable to walk, however she walks to the bathroom. She is complaining of pain in her legs. She tells us that she was suicidal and she plans on taking all of her medications at once. No self-harm at this point Related Data Home Medications Medication Instructions Recorded Confirmed albuterol sulfate 90 mcg/actuation 1 - 2 puff inhalation Q4H PRN 09/19/23 03/10/24 aerosol inhaler (Ventolin HFA) Shortness Of Breath buprenorphine HCl 2 mg sublingual 4 mg sublingual .@ LUNCH 03/10/24 03/10/24 tablet buprenorphine HCl 8 mg sublingual 8 mg sublingual BID 03/10/24 03/10/24 tablet bupropion HCl 300 mg 24 hr tablet, 300 mg PO QAM 03/10/24 03/10/24 extended release (Wellbutrin XL) buspirone 10 mg tablet 20 mg PO TID 03/10/24 03/10/24 miconazole nitrate 2 % topical 1 applic topical BID PRN Rash 03/10/24 03/10/24 powder (Antifungal (miconazole)) Previous Rx's Medication Instructions Recorded tizanidine 4 mg capsule 4 mg PO Q8H PRN Spasms 15 days #45 09/15/23 caps trazodone 150 mg tablet 600 mg (4 x 150 mg) PO BEDTIME PRN 10/21/23 insomnia 30 days #120 tabs gabapentin 600 mg tablet 600 mg PO TID 30 days #90 tabs 12/17/23 Allergies Allergy/AdvReac Type Severity Reaction Status Date / Time naltrexone Allergy ALGY-Difficulty Verified 11/15/23 20:11 Breathing Review of Systems 2 Narrative: Constitutional symptoms: Negative except as documented in HPI. Skin symptoms: Negative except as documented in HPI. Eye symptoms: Negative except as documented in HPI. ENMT symptoms: Negative except as documented in HPI. Respiratory symptoms: Negative except as documented in HPI. Cardiovascular symptoms: Negative except as documented in HPI. Gastrointestinal symptoms: Negative except as documented in HPI. Genitourinary symptoms: Negative except as documented in HPI. Musculoskeletal symptoms: Negative except as documented in HPI. Neurologic symptoms: Negative except as documented in HPI. Psychiatric symptoms: Negative except as documented in HPI. Endocrine symptoms: Negative except as documented in HPI. PFSH ED 2 PFSH: Medical History History of attempted suicide Psychiatric care Opiate abuse, episodic Methamphetamine dependence, episodic Pyuria Morbid obesity with BMI of 50.0-59.9, adult Fatty infiltration of liver Abnormal uterine bleeding (AUB) Urinary incontinence Asthma Benign essential HTN Uncontrolled type 2 diabetes mellitus, without long-term current use of insulin Hypothyroidism DDD (degenerative disc disease) Intervertebral disc disorders with radiculopathy, lumbar region Bilateral primary osteoarthritis of knee Gender dysphoria Nicotine dependence, cigarettes, uncomplicated Major depressive disorder, recurrent severe without psychotic features Surgical History History of ureter stent S/P laparoscopic appendectomy (04/19/20) History of endometrial biopsy (04/13/20) benign endocervical epithelium Hx of foot surgery Family History Mother Diabetes Sister Cancer ovarian Other Dementia Heart disease Hypertension Psychiatric illness Denies family history of CAD (coronary artery disease) Clotting disorder Hyperlipidemia Chronic kidney disease (CKD) Anesthesia complication Bleeding disorder Lung disease Stroke Social History Smoking and tobacco/nicotine status: current every day tobacco/nicotine user cigarettes Packs smoked per day: 0.50 Alcohol intake: current Alcohol intake frequency: other Alcohol type: beer and hard liquor Substance/Drug Use: former Date of last use: 2017 Lives independently: Yes Household members: other Details: partner and her mom Marital status: Single Number of children: 0 Current occupational status: disabled Current gender identity: Male and Other Gender Identity Comment: Goes by Saul, considering formal transition Special hero needs: No Agree to transfusion: Yes Physical Exam 2 Narrative: EXAM NARRATIVE: General: Alert. no acute distress Skin: Warm, dry Head: Normocephalic, atraumatic. Neck: Supple, trachea midline. Eye: Extraocular movements are intact. Ears, nose, mouth and throat: Oral mucosa moist. Cardiovascular: Regular rate and rhythm, Normal peripheral perfusion. Respiratory: Lungs are clear to auscultation, respirations are non-labored, breath sounds are equal, Symmetrical chest wall expansion. Gastrointestinal: Soft, Nontender, Non distended, Normal bowel sounds. Musculoskeletal: Normal ROM, no deformity. Neurological: Alert and oriented to person, place, time, and situation, No focal neurological deficit observed. Psychiatric: Cooperative, depressed, expresses suicidal ideation. Course 2 Vital Signs: Vital signs: Vital Signs Temperature 98.1 F 03/10/24 09:37 Pulse Rate 98 03/10/24 09:20 Respiratory Rate 22 H 03/10/24 09:20 Blood Pressure 150/102 03/10/24 09:20 Pulse Oximetry 99 03/10/24 09:20 [facility] - Psych Medical Decision Making Differential diagnosis: Patient with reported depression and suicidal ideation. concerns for infection, alcohol intoxication, cardiac issues or other medical problems prior to psychiatric admission. Workup: labwork, ekg ordered to evaluate the pathologies and to clear the patient medically prior to psychiatric admission EKG: Time 9:35 AM. Rate 95. Normal sinus rhythm, No ST-T changes, no ectopy, normal VA & QRS intervals, This was reviewed and interpreted by myself the ER physician at 9:40 AM Lab Review: Laboratory results were reviewed and interpreted by myself the emergency room physician. Lab review: - Medically cleared. - EKG shows no ischemic changes. - Blood alcohol level is negative, -Tylenol and salicylate levels are negative. - Drug screen is negative - No signs of infection, urinalysis clear and white count is not elevated - No anemia. - BUN and creatinine are within normal limits. Consultation: I spoke with Dr. Pineda who is on-call for psychiatry. Assessment and plan: Depression Suicidal ideation ? Ibuprofen for her leg pain -Admission to neuropsychiatric unit for continued evaluation and treatment. - All lab work was reviewed and interpreted personally by myself, the ER physician - Evaluation and treatment of this problem were appropriate in the emergency setting Lab Data 03/10/24 09:57 03/10/24 09:57 Laboratory Results WBC 7.50 10^3/uL (3.29-11.43) 03/10/24 09:57 RBC 4.51 10^6/uL (3.85-5.65) 03/10/24 09:57 Hgb 12.60 g/dL (11.27-16.99) 03/10/24 09:57 Hct 40.3 % (36-47) 03/10/24 09:57 MCV 89.4 fl (85-98) 03/10/24 09:57 MCH 27.9 pg (27-33) 03/10/24 09:57 MCHC 31.3 g/dL (30-55) 03/10/24 09:57 RDW 13.5 % (12.1-15.1) 03/10/24 09:57 Plt Count 260 10^3/cmm (157-399) 03/10/24 09:57 MPV 9.1 fL (7.4-10.4) 03/10/24 09:57 Neut % (Auto) 76.4 % 03/10/24 09:57 Lymph % (Auto) 15.2 % 03/10/24 09:57 [place] % (Auto) 6.3 % 03/10/24 09:57 Eos % (Auto) 1.6 % 03/10/24 09:57 Baso % (Auto) 0.1 % 03/10/24 09:57 Neut # (Auto) 5.73 10^3/uL (1.8-7.7) 03/10/24 09:57 Lymph # (Auto) 1.1 10^3/uL (0.8-4.8) 03/10/24 09:57 [place] # (Auto) 0.5 10^3/uL (0.2-0.9) 03/10/24 09:57 Eos # (Auto) 0.1 10^3/uL (0.0-0.8) 03/10/24 09:57 Baso # (Auto) 0.0 10^3/uL (0.0-0.1) 03/10/24 09:57 Nucleated RBC % (auto) 0 % 03/10/24 09:57 Nucleated RBCs # 0.0 /100WBC 03/10/24 09:57 Sodium 143 mmol/L (136-145) 03/10/24 09:57 Potassium 3.8 mmol/L (3.5-5.1) 03/10/24 09:57 Chloride 104 mmol/L (98-107) 03/10/24 09:57 Carbon Dioxide 26 mmol/L (22-29) 03/10/24 09:57 Anion Gap 16.8 (5-19) 03/10/24 09:57 BUN 17 mg/dL (6-20) 03/10/24 09:57 Creatinine 0.8 mg/dL (0.5-0.9) 03/10/24 09:57 GFR Calculation 78.7 mL/min (90-130) L 03/10/24 09:57 Glucose 124 mg/dL (65-115) H 03/10/24 09:57 Calculated Osmolality 299 mOsm/kg (285-295) H 03/10/24 09:57 Calcium 8.8 mg/dL (8.5-10.5) 03/10/24 09:57 Total Bilirubin 0.4 mg/dL (0.15-1.2) 03/10/24 09:57 AST 14 U/L (0-32) 03/10/24 09:57 ALT 10 U/L (0-33) 03/10/24 09:57 Alkaline Phosphatase 95 U/L (35-105) 03/10/24 09:57 Total Protein 7.9 g/dL (6.6-8.7) 03/10/24 09:57 Albumin 3.9 g/dL (3.5-5.2) 03/10/24 09:57 Globulin 4.0 g/dL (1.3-4.6) 03/10/24 09:57 TSH 4.55 uIU/mL (0.27-4.20) H 03/10/24 09:57 HCG, Qual Negative (Negative) 03/10/24 09:57 Urine Color Yellow (Yellow) 03/10/24 09:50 Urine Appearance Clear (CLEAR) 03/10/24 09:50 Urine pH 6.0 (5-7) 03/10/24 09:50 Ur Specific [place] 1.018 (1.005-1.030) 03/10/24 09:50 Urine Protein Negative (Negative) 03/10/24 09:50 Urine Glucose (UA) Negative (Normal) 03/10/24 09:50 Urine Ketones Negative (Negative) 03/10/24 09:50 Urine Blood Negative (Negative) 03/10/24 09:50 Urine Nitrate Negative (Negative) 03/10/24 09:50 Urine Bilirubin Negative (Negative) 03/10/24 09:50 Urine Urobilinogen 1.0 mg/dL (Negative) 03/10/24 09:50 Ur Leukocyte Esterase Trace (Negative) A 03/10/24 09:50 Urine RBC 0-2 /hpf (0-2) 03/10/24 09:50 Urine WBC 0-5 /hpf (0-5) 03/10/24 09:50 Ur Squamous Epith Cells 0-5 /hpf (0-5) 03/10/24 09:50 Amorphous Sediment Not Reportable 03/10/24 09:50 Urine Bacteria None seen /hpf (NONE) 03/10/24 09:50 Hyaline Casts 0.81 /lpf 03/10/24 09:50 Salicylates < 0.3 mg/dL (3-10) L 03/10/24 09:57 Urine Opiates Screen Negative ng/mL (Negative) 03/10/24 09:50 Acetaminophen < 5.0 ug/mL (10-30) L 03/10/24 09:57 Ur Barbiturates Screen Negative ng/mL (Negative) 03/10/24 09:50 Ur Phencyclidine Scrn Negative ng/mL (Negative) 03/10/24 09:50 Ur Amphetamines Screen Negative ng/mL (Negative) 03/10/24 09:50 U Benzodiazepines Scrn Negative ng/mL (Negative) 03/10/24 09:50 Urine Cocaine Screen Negative ng/mL (Negative) 03/10/24 09:50 U Marijuana (THC) Screen Negative ng/mL (Negative) 03/10/24 09:50 Ethyl Alcohol < 10 mg/dL (0-10) 03/10/24 09:57 No radiology studies performed this visit Discharge Plan Discharge Patient Disposition: Admitted As Inpatient Clinical Impression: Suicidal ideation, Depression Condition: Stable Coding Level of Care Code ED Manual Lathe Operator for Milagro Lao
[2024-03-10 10:31] LABS: Acetaminophen < 5.0 ug/mL (10-30); Alcohol Level < 10 mg/dL (0-10); Salicylate < 0.3 mg/dL (3-10)
[2024-03-10 14:12] VITALS: BP 122/69; PULSE 90; RESP 20; O2SAT 99
[2024-03-10 14:27] VITALS: BP 119/78; PULSE 88; RESP 16; TEMP 36.6; O2SAT 97
--- NOTE | 2024-03-10 16:32 | PC.NURSE ---
PT WAS DISCHARGED FROM [facility] AND DISCHARGED TO [facility]. PT WAS REPORTED TO HAVE NOT GOTTEN A BED THERE AND PROMPTLY CALLED 911 STATING THAT SHE WAS UNABLE TO WALK. ONCE PT ARRIVED TO THE EMERGENCY DEPARTMENT PT HAD C/O LEG AND HIP PAIN. PT WAS REPORTED TO HAVE REQUESTED NARCOTICS WHICH SHE DID NOT RECEIVE THE BECAME SUICIDAL STATING THAT SHE WAS GOING TO OVERDOSE ON ALL HER MEDS TO THE ER NURSE. UPON ADMIT TO THE NPU PT STATES THAT SHE IS UNABLE TO STAND AND WALK THEN WALKED TO HER ROOM ON HER OWN. PT WAS LABILE AND TEARFUL. PT WOULD CRY THEN STOP SUDDENLY FREQUENTLY THROUGHOUT ASSESSMENT. PT STATES THAT SHE IS HOMELESS AND SHE JUST DOESN'T KNOW WHAT TO DO ANYMORE. PT STATES THAT SHE JUST NEEDS A PLACE TO LIVE, TO GET HER SOCIAL SECURITY AND HER FOOD STAMPS BACK. PT WAS COOPERATIVE WITH ASSESSMENT. PT CURRENT NEEDS ARE MET AT THIS TIME.
[2024-03-10 20:18] VITALS: BP 108/57; PULSE 93; RESP 16; TEMP 36.6; O2SAT 95
[2024-03-10] MEDS: trazodone 100 mg Tablet 200 MG PO (20:59)
[2024-03-10] MEDS: BuSPIRONE 10 mg Tablet 20 MG PO (20:59)
[2024-03-10] MEDS: gabapentin 300 mg Capsule 600 MG PO (20:59)
[2024-03-11 06:00] VITALS: BP 117/67; PULSE 88; RESP 18; TEMP 36.9; O2SAT 94
[2024-03-11] MEDS: buPROPion XL (24 HR) 300 mg Tablet PO (06:24)
[2024-03-11] MEDS: gabapentin 300 mg Capsule 600 MG PO ×3 (08:29→20:06)
[2024-03-11] MEDS: loratadine 10 mg Tablet PO (08:29)
[2024-03-11] MEDS: buprenorphine-naloxone 4-1 mg Film 2 EACH SUBLINGUAL (08:29)
[2024-03-11] MEDS: BuSPIRONE 10 mg Tablet 20 MG PO ×3 (08:29→20:07)
[2024-03-11] MEDS: lithium carbonate ER 300 mg Tablet PO ×2 (08:29→17:13)
[2024-03-11] MEDS: tizanidine 4 mg Tablet PO ×2 (08:48→20:07)
[2024-03-11] MEDS: acetaminophen 325 mg Tablet 650 MG PO (08:48)
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
[2024-03-11] MEDS: buprenorphine-naloxone 4-1 mg Film 1 EACH SUBLINGUAL (12:12)
[2024-03-11 13:40] VITALS: BP 127/74; PULSE 94; RESP 16; TEMP 36.6; O2SAT 97
[2024-03-11] MEDS: hyDROXYzine 25 mg Capsule 50 MG PO (14:49)
[2024-03-11] MEDS: nicotine 2 mg Gum BUCCAL (14:55)
[2024-03-11] MEDS: ibuprofen 600 mg Tablet PO (18:18)
[2024-03-11 19:47] VITALS: BP 162/74; PULSE 91; RESP 18; TEMP 36.6; O2SAT 97
[2024-03-11] MEDS: trazodone 100 mg Tablet 200 MG PO (20:07)
[2024-03-11] MEDS: NON-FORMULARY MEDICATION 8 EACH PO (20:10)
[2024-03-12 06:00] VITALS: BP 129/73; PULSE 88; RESP 18; TEMP 36.7; O2SAT 96
[2024-03-12] MEDS: tizanidine 4 mg Tablet PO (07:15)
[2024-03-12] MEDS: ibuprofen 600 mg Tablet PO (07:15)
[2024-03-12] MEDS: buPROPion XL (24 HR) 300 mg Tablet PO (07:16)
--- NOTE | 2024-03-12 08:13 | PC.NURSE ---
During morning assessment, patient calm and subdued. Patient denies SI, HI, AVH, depression, and anxiety. Patient stated that she now has a place to live, with a friend in [place].
[2024-03-12] MEDS: lithium carbonate ER 300 mg Tablet PO (09:38)
[2024-03-12] MEDS: loratadine 10 mg Tablet PO (09:38)
[2024-03-12] MEDS: BuSPIRONE 10 mg Tablet 20 MG PO ×2 (09:38→13:07)
[2024-03-12] MEDS: acetaminophen 325 mg Tablet 650 MG PO (09:38)
[2024-03-12] MEDS: gabapentin 300 mg Capsule 600 MG PO ×2 (09:39→13:07)
[2024-03-12] MEDS: BUPRENORPHINE 8 MG 1 EACH PO (09:50)
[2024-03-12] MEDS: BUPRENORPHINE 2 MG 2 EACH PO (12:51)
[2024-03-12 14:00] VITALS: BP 130/80; PULSE 81; RESP 16; TEMP 36.4; O2SAT 98
[2024-03-12 15:50] VITALS: BP 130/80; PULSE 81; RESP 16; TEMP 36.4; O2SAT 98
[2024-03-12 16:16] VITALS: BP 130/80; PULSE 81; RESP 16; TEMP 36.4; O2SAT 98
--- NOTE | 2024-03-12 16:20 | W.PM.NPUDCS ---
Diagnoses at Discharge Discharge Diagnosis (1) Major depressive disorder, recurrent severe without psychotic features: Status: Chronic (2) Opioid use disorder, severe, dependence: Status: Acute (3) Suicidal ideation: Status: Resolved (4) Anxiety: Status: Acute (5) Borderline personality disorder: Status: Acute (6) Methamphetamine dependence, episodic: Status: Acute (7) Malingering: Status: Acute (8) Alcohol use: Status: Acute (9) Alcohol withdrawal: Status: Resolved (10) Alcoholic intoxication: Status: Inactive Reason for Visit Reason for Visit: Weakness Involuntary Hold Information 96 Hour Hold: 96 Hour Involuntary Admission: Yes 96 Hour Hold Ending Date: 03/16/24 96 Hour Hold Ending Time: 09:47 Mental Status Exam MSE Comments: This is a morbidly obese white female in hospital scrubs with limited grooming and eye contact. No abnormal movements except for occasional psychomotor agitation. Mostly cooperative with exam in mild to moderate distress. Speech was normal rate and volume except for when she got upset. Mood described as depressed, affect appeared irritable. Thought process organized. Thought content: Patient endorsed suicidal but denied homicidal ideation, no delusions reported or noted, she denied auditory or visual hallucinations. Attention and concentration appeared intact and memory seemed unreliable but not were formally tested. Alert and oriented x3. Insight, judgment and impulse control are limited versus impaired. Discharge Data Studies Completed and Pending: Laboratory Results WBC 7.50 10^3/uL (3.2 9-11.43) 03/10/24 09:57 RBC 4.51 10^6/uL (3.8 5-5.65) 03/10/24 09:57 Hgb 12.60 g/dL (11.27 -16.99) 03/10/24 09:57 Hct 40.3 % (36-47) 03/10/24 09:57 MCV 89.4 fl (85-98) 03/10/24 09:57 MCH 27.9 pg (27-33) 03/10/24 09:57 MCHC 31.3 g/dL (30-55) 03/10/24 09:57 RDW 13.5 % (12.1-15.1 ) 03/10/24 09:57 Plt Count 260 10^3/cmm (157 -399) 03/10/24 09:57 MPV 9.1 fL (7.4-10.4) 03/10/24 09:57 Neut % (Auto) 76.4 % 03/10/24 09:57 Lymph % (Auto) 15.2 % 03/10/24 09:57 [place] % (Auto) 6.3 % 03/10/24 09:57 Eos % (Auto) 1.6 % 03/10/24 09:57 Baso % (Auto) 0.1 % 03/10/24 09:57 Neut # (Auto) 5.73 10^3/uL (1.8 -7.7) 03/10/24 09:57 Lymph # (Auto) 1.1 10^3/uL (0.8- 4.8) 03/10/24 09:57 [place] # (Auto) 0.5 10^3/uL (0.2- 0.9) 03/10/24 09:57 Eos # (Auto) 0.1 10^3/uL (0.0- 0.8) 03/10/24 09:57 Baso # (Auto) 0.0 10^3/uL (0.0- 0.1) 03/10/24 09:57 Nucleated RBC % (a uto) 0 % 03/10/24 09:57 Nucleated RBCs # 0.0 /100WBC 03/10/24 09:57 Sodium 143 mmol/L (136-1 45) 03/10/24 09:57 Potassium 3.8 mmol/L (3.5-5 .1) 03/10/24 09:57 Chloride 104 mmol/L (98-10 7) 03/10/24 09:57 Carbon Dioxide 26 mmol/L (22-29) 03/10/24 09:57 Anion Gap 16.8 (5-19) 03/10/24 09:57 BUN 17 mg/dL (6-20) 03/10/24 09:57 Creatinine 0.8 mg/dL (0.5-0. 9) 03/10/24 09:57 GFR Calculation 78.7 mL/min (90-1 30) L 03/10/24 09:57 Glucose 124 mg/dL (65-115 ) H 03/10/24 09:57 Calculated Osmolal ity 299 mOsm/kg (285- 295) H 03/10/24 09:57 Calcium 8.8 mg/dL (8.5-10 .5) 03/10/24 09:57 Total Bilirubin 0.4 mg/dL (0.15-1 .2) 03/10/24 09:57 AST 14 U/L (0-32) 03/10/24 09:57 ALT 10 U/L (0-33) 03/10/24 09:57 Alkaline Phosphata se 95 U/L (35-105) 03/10/24 09:57 Total Protein 7.9 g/dL (6.6-8.7 ) 03/10/24 09:57 Albumin 3.9 g/dL (3.5-5.2 ) 03/10/24 09:57 Globulin 4.0 g/dL (1.3-4.6 ) 03/10/24 09:57 TSH 4.55 uIU/mL (0.27 -4.20) H 03/10/24 09:57 HCG, Qual Negative (Negati ve) 03/10/24 09:57 Urine Color Yellow (Yellow) 03/10/24 09:50 Urine Appearance Clear (CLEAR) 03/10/24 09:50 Urine pH 6.0 (5-7) 03/10/24 09:50 Ur Specific Gravit y 1.018 (1.005-1.0 30) 03/10/24 09:50 Urine Protein Negative (Negati ve) 03/10/24 09:50 Urine Glucose (UA) Negative (Normal ) 03/10/24 09:50 Urine Ketones Negative (Negati ve) 03/10/24 09:50 Urine Blood Negative (Negati ve) 03/10/24 09:50 Urine Nitrate Negative (Negati ve) 03/10/24 09:50 Urine Bilirubin Negative (Negati ve) 03/10/24 09:50 Urine Urobilinogen 1.0 mg/dL (Negati ve) 03/10/24 09:50 Ur Leukocyte Rosalva ase Trace (Negative) A 03/10/24 09:50 Urine RBC 0-2 /hpf (0-2) 03/10/24 09:50 Urine WBC 0-5 /hpf (0-5) 03/10/24 09:50 Ur Squamous Epith Cells 0-5 /hpf (0-5) 03/10/24 09:50 Amorphous Sediment Not Reportable 03/10/24 09:50 Urine Bacteria None seen /hpf (N ONE) 03/10/24 09:50 Hyaline Casts 0.81 /lpf 03/10/24 09:50 Salicylates < 0.3 mg/dL (3-10 ) L 03/10/24 09:57 Urine Opiates Scre en Negative ng/mL (N egative) 03/10/24 09:50 Acetaminophen < 5.0 ug/mL (10-3 0) L 03/10/24 09:57 Ur Barbiturates Sc reen Negative ng/mL (N egative) 03/10/24 09:50 Ur Phencyclidine S crn Negative ng/mL (N egative) 03/10/24 09:50 Ur Amphetamines Sc reen Negative ng/mL (N egative) 03/10/24 09:50 U Benzodiazepines Scrn Negative ng/mL (N egative) 03/10/24 09:50 Urine Cocaine Scre en Negative ng/mL (N egative) 03/10/24 09:50 U Marijuana (THC) Screen Negative ng/mL (N egative) 03/10/24 09:50 Ethyl Alcohol < 10 mg/dL (0-10) 03/10/24 09:57 Vitals: Last Vital Signs Temp 97.6 F 03/12/24 16:16 Pulse 81 03/12/24 16:16 Resp 16 03/12/24 16:16 BP 130/80 03/12/24 16:16 Pulse Ox 98 03/12/24 16:16 O2 Del Method Room Air 03/12/24 14:00 Discharge Plan Discharge Patient Disposition: Home Condition: Stable Prescriptions: Continued gabapentin 600 mg tablet 600 mg PO TID 30 Days Qty: 90 0RF albuterol sulfate [Ventolin HFA] 90 mcg/actuation HFA aerosol inhaler 1 - 2 puff INHALATION Q4H PRN (Reason: Shortness Of Breath) Antifungal (miconazole) 2 % Powder 1 applic TOPICAL BID PRN (Reason: Rash) buspirone 10 mg tablet 20 mg PO TID buprenorphine HCl 2 mg Tablet, Sublingual 4 mg SUBLINGUAL .@ LUNCH buprenorphine HCl 8 mg Tablet, Sublingual 8 mg SUBLINGUAL BID Wellbutrin XL 300 mg Tablet Extended Release 24 Hr 300 mg PO QAM Changed trazodone 150 mg tablet 150 mg PO BEDTIME PRN (Reason: insomnia) 30 Days Qty: 30 1RF Discontinued tizanidine 4 mg Capsule 4 mg PO Q8H PRN (Reason: Spasms) 15 Days Qty: 45 1RF Discharge Orders: Discharge Order (Routine); Ordered 03/12/24 Ordered By: Bin Pinead Referrals: [facility] [Outside] - 03/19/24 11:00 am (Hospital follow up with Gael ) Willard Ham MD [Primary Care Provider] - Discharge Diet: Regular Discharge Activity: Resume usual activity Patient Instructions: Help Prevent Suicide (DC), Suicide Prevention (DC), Opioid Safety Discharge Attestations NPU Time Spent in Discharge Care*: less than 30 min Specific Discharge Activities: Specific discharge activities: educating patient, discussing with rn case mgr/social workers/dc planners, documenting/other paperwork and evaluating patient/reviewing data Coding Level of Care Code Acute Code for Chg Fwd Diagnoses Major depressive disorder, recurrent severe without psychotic features F33.2 Opioid use disorder, severe, dependence F11.20 Suicidal ideation R45.851 Anxiety F41.9 Borderline personality disorder F60.3 Methamphetamine dependence, episodic F15.20 Malingering Z76.5 Alcohol use Z78.9 Alcohol withdrawal F10.939 Alcoholic intoxication F10.929
== END 2024-03-12 16:49 | disposition home or self-care (01) | DRG 885 ==
LOC: ER 13:51 → NP 13:51
PROVIDERS: Admitting Provider Psychiatry & Neurology Psychiatry; Emergency Provider Emergency Medicine; PCP Family Medicine; Visit Provider Psychiatry & Neurology Psychiatry
DX: F33.2 Major depressive disorder, recurrent severe without psychotic features (principal); R45.851 Suicidal ideations; Z68.43 Body mass index [BMI] 50.0-59.9, adult; Z59.00 Homelessness unspecified; F11.20 Opioid dependence, uncomplicated; F15.20 Other stimulant dependence, uncomplicated; E66.01 Morbid (severe) obesity due to excess calories; I10 Essential (primary) hypertension; E11.9 Type 2 diabetes mellitus without complications; E03.9 Hypothyroidism, unspecified; M79.605 Pain in left leg; M79.604 Pain in right leg; F17.210 Nicotine dependence, cigarettes, uncomplicated; F41.9 Anxiety disorder, unspecified; F60.3 Borderline personality disorder
CPT/HCPCS: 80053; 80306; 80307; 81001; 84443; 84703; 85025; 93005; 97150; 97165; 99285; J0573

== ENCOUNTER 2024-03-19 13:07 | Emergency (ER) | payer MEDICARE, MEDICAID, SELFPAY ==
[2024-03-19 13:35] VITALS: BP 148/87; PULSE 92; RESP 16; TEMP 36.7; O2SAT 92; BMI 51.5
--- NOTE | 2024-03-19 15:07 | W.ED.EXTPRO ---
HPI - Extremity Problem General: Chief complaint: Extremity Problem,Nontraumatic Stated complaint: Knee/back pain Time Seen by Provider: 03/19/24 14:53 Source: patient Mode of arrival: wheelchair Limitations: no limitations History of Present Illness: Patient is a 43-year-old female who is well-known to the emergency department here for complaints of right knee pain. She states she has a chronic history of bilateral knee pain. She states usually it is her left knee that hurts worse however today it is her right. She has had no known injury or trauma. She has not noticed any redness or swelling to the knee joint. She reportedly had an appointment with orthopedics back in November for steroid injections to the left knee but missed this appointment and has never rescheduled. MD Complaint: joint pain Onset (ago): week(s) Pain Consistency: constant Location: right and knee Radiation: none Relieving factors: nothing Exacerbating factors: walking Associated symptoms: Reports no associated symptoms; Deny chest pain Related Data Home Medications Medication Instructions Recorded Confirmed albuterol sulfate 90 mcg/actuation 1 - 2 puff inhalation Q4H PRN 09/19/23 03/10/24 aerosol inhaler (Ventolin HFA) Shortness Of Breath buprenorphine HCl 2 mg sublingual 4 mg sublingual .@ LUNCH 03/10/24 03/10/24 tablet buprenorphine HCl 8 mg sublingual 8 mg sublingual BID 03/10/24 03/10/24 tablet bupropion HCl 300 mg 24 hr tablet, 300 mg PO QAM 03/10/24 03/10/24 extended release (Wellbutrin XL) buspirone 10 mg tablet 20 mg PO TID 03/10/24 03/10/24 miconazole nitrate 2 % topical 1 applic topical BID PRN Rash 03/10/24 03/10/24 powder (Antifungal (miconazole)) Previous Rx's Medication Instructions Recorded gabapentin 600 mg tablet 600 mg PO TID 30 days #90 tabs 12/17/23 trazodone 150 mg tablet 150 mg PO BEDTIME PRN insomnia 30 03/12/24 days #30 tabs Allergies Allergy/AdvReac Type Severity Reaction Status Date / Time naltrexone Allergy ALGY-Difficulty Verified 03/19/24 13:43 Breathing Review of Systems Card: Denies: chest pain Resp: Denies: dyspnea Musc: Reports: joint pain (bilateral knee pain); Denies: extremity pain, extremity swelling or joint swelling PFSH ED PFSH: Medical History Depression History of attempted suicide Psychiatric care Opiate abuse, episodic Methamphetamine dependence, episodic Pyuria Morbid obesity with BMI of 50.0-59.9, adult Fatty infiltration of liver Abnormal uterine bleeding (AUB) Urinary incontinence Asthma Benign essential HTN Uncontrolled type 2 diabetes mellitus, without long-term current use of insulin Hypothyroidism DDD (degenerative disc disease) Intervertebral disc disorders with radiculopathy, lumbar region Bilateral primary osteoarthritis of knee Gender dysphoria Nicotine dependence, cigarettes, uncomplicated Major depressive disorder, recurrent severe without psychotic features Surgical History History of ureter stent S/P laparoscopic appendectomy (04/19/20) History of endometrial biopsy (04/13/20) benign endocervical epithelium Hx of foot surgery Family History Mother Diabetes Sister Cancer ovarian Other Dementia Heart disease Hypertension Psychiatric illness Denies family history of CAD (coronary artery disease) Clotting disorder Hyperlipidemia Chronic kidney disease (CKD) Anesthesia complication Bleeding disorder Lung disease Stroke Social History Smoking and tobacco/nicotine status: current every day tobacco/nicotine user cigarettes Packs smoked per day: 0.50 Alcohol intake: current Alcohol intake frequency: other Alcohol type: beer and hard liquor Substance/Drug Use: former Date of last use: 2017 Lives independently: Yes Household members: other Details: partner and her mom Marital status: Single Number of children: 0 Current occupational status: disabled Current gender identity: Male and Other Gender Identity Comment: Goes by Saul, considering formal transition Special hero needs: No Agree to transfusion: Yes Physical Exam Const: COMMON NORMALS: no acute distress, patient oriented x3, no limitations and alert GENERAL APPEARANCE: cooperative NUTRITIONAL APPEARANCE: obese morbidly obese (BMI of 51.6) ORIENTATION/CONSCIOUSNESS: Yes awake, Yes oriented to person, Yes oriented to place and Yes oriented to time Resp: COMMON NORMALS: normal respiratory effort and clear to auscultation bilaterally AUSCULTATION: clear to auscultation bilaterally Cardio: COMMON NORMALS: regular rate and regular rhythm RATE: regular rate RHYTHM: regular rhythm Extremity: COMMON NORMALS: capillary refill normal and no calf tenderness GENERAL: Yes normal exam except as noted RIGHT LOWER EXTREMITY: Yes knee joint (TTP R knee; no effusion) Right knee: Yes inspection (normal gross inspection) and Yes neurovascular exam (normal) Neuro: COMMON NORMALS: patient oriented x3, moves all extremities, no focal motor deficits and no sensory deficits noted SENSORIUM/ORIENTATION: Yes alert, Yes oriented to person, Yes oriented to place and Yes oriented to time Course Vital Signs: Vital signs: Vital Signs Temperature 98.1 F 03/19/24 13:35 Pulse Rate 92 03/19/24 13:35 Respiratory Rate 16 03/19/24 13:35 Blood Pressure 148/87 03/19/24 13:35 Pulse Oximetry 92 03/19/24 13:35 Oxygen Delivery Me thod Room Air 03/19/24 13:35 MDM - Extremity (Nontraumatic) Medical Decision Making Patient is a 43-year-old female with chronic knee pain here for right knee pain. No acute injury or trauma. She does not require emergent imaging from the emergency department today. She has been using OTC analgesics which I recommend she continue doing. She was given IM Toradol and Dexamethasone prior to discharge. Medical Records I reviewed the patient's medical records. No radiology studies performed this visit Discharge Plan Discharge Patient Disposition: Home Clinical Impression: Right knee pain Qualifiers: Chronicity: acute Qualified Code(s): M25.561 - Pain in right knee Condition: Stable Prescriptions: No Action gabapentin 600 mg tablet 600 mg PO TID 30 Days Qty: 90 0RF albuterol sulfate [Ventolin HFA] 90 mcg/actuation HFA aerosol inhaler 1 - 2 puff INHALATION Q4H PRN (Reason: Shortness Of Breath) Antifungal (miconazole) 2 % Powder 1 applic TOPICAL BID PRN (Reason: Rash) buspirone 10 mg tablet 20 mg PO TID buprenorphine HCl 2 mg Tablet, Sublingual 4 mg SUBLINGUAL .@ LUNCH buprenorphine HCl 8 mg Tablet, Sublingual 8 mg SUBLINGUAL BID Wellbutrin XL 300 mg Tablet Extended Release 24 Hr 300 mg PO QAM trazodone 150 mg tablet 150 mg PO BEDTIME PRN (Reason: insomnia) 30 Days Qty: 30 1RF Discharge Orders: Discharge ED (Routine); Ordered 03/19/24 Ordered By: Leah Bishop Referrals: Willard Ham MD [Primary Care Provider] - Coding Level of Care Code ED Shredding Machine Operator for Chg Fwnina
[2024-03-19] MEDS: ketorolac 60 mg/2 mL INJ IM (15:28)
[2024-03-19] MEDS: dexamethasone 10 mg/mL INJ IM (15:28)
[2024-03-19 15:43] VITALS: BP 150/86; PULSE 89; RESP 16; TEMP 36.7; O2SAT 94
== END 2024-03-19 15:40 | disposition home or self-care (01) ==
PROVIDERS: Emergency Provider Physician Assistant; PCP Family Medicine
DX: M25.561 Pain in right knee (principal); F17.210 Nicotine dependence, cigarettes, uncomplicated; I10 Essential (primary) hypertension; E11.9 Type 2 diabetes mellitus without complications
CPT/HCPCS: 96372; 99284; J1100; J1885

== ENCOUNTER 2024-05-18 19:28 | Emergency (ER) | payer MEDICARE, MEDICAID, SELFPAY ==
--- NOTE | 2024-05-18 19:35 | XRR_ITS ---
PROCEDURE INFORMATION: Exam: XR Right Hip Exam date and time: 05/18/2024 8:57 PM Age: 43 years old Clinical indication: Injury or trauma; Fall; Blunt trauma (contusions or hematomas); Left; Hip; Prior surgery; Surgery date: 6+ months; Surgery type: Hyst TECHNIQUE: Imaging protocol: Radiologic exam of the right hip. Views: 1 view hip with pelvis when performed. COMPARISON: CT kidney stone [id number] 12/01/2022 11:38 AM FINDINGS: Bones/joints: Moderate osteoarthritis of the hips bilaterally left greater than right. Soft tissues: Unremarkable. XR/XR hip RT 2-3V wo/w pel* [id number] IMPRESSION: 1. Negative for fracture or dislocation. 2. Moderate osteoarthritis of the hips bilaterally left greater than right.
[2024-05-18 20:20] VITALS: BP 152/105; PULSE 70; RESP 16; TEMP 36.4; O2SAT 93
--- NOTE | 2024-05-18 22:11 | ED_ITS ---
HPI - Back Pain/Injury General: Chief Complaint: Back Pain/Injury Stated Complaint: right side back hip pain fall Time Seen by Provider: 05/18/24 22:04 Source: patient Mode of arrival: ambulatory Limitations: no limitations History of Present Illness: 43-year-old female states she slipped an d fell at home states she did not land on her buttocks having some hip pain states she is having some slight low back pain as well. She denies hitting her head patient is able to ambulate. Denies any other injuries rates her pain a 6 out of 10 currently Associated symptoms: Deny abdominal pain, chills, fever(s), nausea or vomiting Related Data Home Medications Medication Instructions Recorded Confirmed albuterol sulfate 90 mcg/actuation 1 - 2 puff inhalation Q4H PRN 09/19/23 03/10/24 aerosol inhaler (Ventolin HFA) Shortness Of Breath buprenorphine HCl 2 mg sublingual 4 mg sublingual .@ LUNCH 03/10/24 03/10/24 tablet buprenorphine HCl 8 mg sublingual 8 mg sublingual BID 03/10/24 03/10/24 tablet bupropion HCl 300 mg 24 hr tablet, 300 mg PO QAM 03/10/24 03/10/24 extended release (Wellbutrin XL) buspirone 10 mg tablet 20 mg PO TID 03/10/24 03/10/24 miconazole nitrate 2 % topical 1 applic topical BID PRN Rash 03/10/24 03/10/24 powder (Antifungal (miconazole)) Previous Rx's Medication Instructions Recorded gabapentin 600 mg tablet 600 mg PO TID 30 days #90 tabs 12/17/23 trazodone 150 mg tablet 150 mg PO BEDTIME PRN insomnia 30 03/12/24 days #30 tabs methocarbamol 750 mg tablet 750 mg PO Q6H PRN spasms #20 tabs 05/18/24 naproxen 500 mg tablet (Naprosyn) 500 mg PO BID PRN pain #20 tabs 05/18/24 Allergies Allergy/AdvReac Type Severity Reaction Status Date / Time naltrexone Allergy ALGY-Difficulty Verified 05/18/24 20:24 Breathing Review of Systems Const: Denies: fever(s), chills, body aches or change in appetite ENMT: Denies: throat pain or dental pain Card: Denies: chest pain Resp: Denies: dyspnea GI: Denies: abdominal pain, nausea, vomiting or diarrhea Musc: Reports: back pain and extremity pain; Denies: neck pain Skin/Breast: Denies: rash Neuro: Denies: headache(s) PFSH ED PFSH: Medical History Depression History of attempted suicide Psychiatric care Opiate abuse, episodic Methamphetamine dependence, episodic Pyuria Morbid obesity with BMI of 50.0-59.9, adult Fatty infiltration of liver Abnormal uterine bleeding (AUB) Urinary incontinence Asthma Benign essential HTN Uncontrolled type 2 diabetes mellitus, without long-term current use of insulin Hypothyroidism DDD (degenerative disc disease) Intervertebral disc disorders with radiculopathy, lumbar region Bilateral primary osteoarthritis of knee Gender dysphoria Nicotine dependence, cigarettes, uncomplicated Major depressive disorder, recurrent severe without psychotic features Surgical History History of ureter stent S/P laparoscopic appendectomy (04/19/20) History of endometrial biopsy (04/13/20) benign endocervical epithelium Hx of foot surgery Family History Mother Diabetes Sister Cancer ovarian Other Dementia Heart disease Hypertension Psychiatric illness Denies family history of CAD (coronary artery disease) Clotting disorder Hyperlipidemia Chronic kidney disease (CKD) Anesthesia complication Bleeding disorder Lung disease Stroke Social History Smoking and tobacco/nicotine status: current every day tobacco/nicotine user cigarettes Packs smoked per day: 0.50 Alcohol intake: current Alcohol intake frequency: other Alcohol type: beer and hard liquor Substance/Drug Use: former Date of last use: 2017 Lives independently: Yes Household members: other Details: partner and her mom Marital status: Single Number of children: 0 Current occupational status: disabled Current gender identity: Male and Other Gender Identity Comment: Goes by Saul, considering formal transition Special hero needs: No Agree to transfusion: Yes Physical Exam Const: COMMON NORMALS: no acute distress, patient oriented x3 and healthy appearing HENMT: COMMON NORMALS: normocephalic and atraumatic HEAD & SCALP: nor mocephalic and atraumatic Eye: COMMON NORMALS: conjunctivae normal CONJUNCTIVA: Yes conjunctivae normal Neck/C-Spine: COMMON NORMALS: full ROM and supple CERVICAL SPINE: Yes cervical ROM normal and No Cervical spine tenderness Chest: COMMONS NORMALS: normal inspection of the chest Resp: COMMON NORMALS: normal respiratory effort Cardio: COMMON NORMALS: regular rate, regular rhythm and No murmurs present (Cardio) RATE: regular rate RHYTHM: regular rhythm Back/Pelvis: OTHER: Tenderness of bilateral hips no obvious deformities has some paraspinal tende rness to lumbar spine no midline tenderness Extremity: COMMON NORMALS: normal to inspection and full ROM Neuro: COMMON NORMALS: patient oriented x3, moves all extremities and no focal motor deficits Psych: COMMON NORMALS: mental status grossly normal, Normal thought process present and cooperative THOUGHT PROCESS: Normal thought process present Skin: COMMON NORMALS: no rashes or lesions noted and no wounds GENERAL SKIN EXAM: no rashes or lesions noted Course Vital Signs: Vital signs: Vital Signs Temperature 97.5 F L 05/18/24 20:20 Pulse Rate 70 05/18/24 20:20 Respiratory Rate 16 05/18/24 20:20 Blood Pressure 152/105 05/18/24 20:20 Pulse Oximetry 93 05/18/24 20:20 MDM - Back Pain/Injury Medical Decision Making Patient presents with hip pain from a fall at home she also has some paraspinal pain along her lumbar spine no midline tenderness x-ray here is negative she has no signs of any lumbar injury she is stable for discharge she did not hit her head follow-up with PCP Medical Records I reviewed the patient's medical records. Labs Radiology Impressions Hip/Pelvis X-Ray 05/18/24 19:35 IMPRESSION: 1. Negative for fracture or dislocation. 2. Moderate osteoarthritis of the hips bilaterally left greater than right. All radiology interpretation(s) finalized by discharge Discharge Plan Discharge Patient Disposition: Home Clinical Impression: Contusion of lower back Condition: Stable Prescriptions: New methocarbamol 750 mg tablet 750 mg PO Q6H PRN (Reason: spasms) Qty: 20 0RF naproxen [Naprosyn] 500 mg tablet 500 mg PO BID PRN (Reason: pain) Qty: 20 0RF No Action gabapentin 600 mg tablet 600 mg PO TID 30 Days Qty: 90 0RF albuterol sulfate [Ventolin HFA] 90 mcg/actuation HFA aerosol inhaler 1 - 2 puff INHALATION Q4H PRN (Reason: Shortness Of Breath) Antifungal (miconazole) 2 % Powder 1 applic TOPICAL BID PRN (Reason: Rash) buspirone 10 mg tablet 20 mg PO TID buprenorphine HCl 2 mg Tablet, Sublingual 4 mg SUBLINGUAL .@ LUNCH buprenorphine HCl 8 mg Tablet, Sublingual 8 mg SUBLINGUAL BID Wellbutrin XL 300 mg Tablet Extended Release 24 Hr 300 mg PO QAM trazodone 150 mg tablet 150 mg PO BEDTIME PRN (Reason: insomnia) 30 Days Qty: 30 1RF Discharge Orders: Discharge ED (Routine); Ordered 05/18/24 Ordered By: Nolan Rodriguez Discharge Diet: Advance as tolerated Discharge Activity: Resume usual activity Patient Instructions: Back Pain (ED) Coding Level of Care Code ED Beverage Sales Consultant for Milagro Lao
[2024-05-18] MEDS: HYDROcodone-acetaminophen 7.5-325 mg Tablet 1 TAB PO (22:16)
== END 2024-05-18 22:28 | disposition home or self-care (01) ==
PROVIDERS: Emergency Provider Emergency Medicine
DX: S30.0XXA Contusion of lower back and pelvis, initial encounter (principal); W01.0XXA Fall on same level from slipping, tripping and stumbling without subsequent striking against object, initial encounter; F17.210 Nicotine dependence, cigarettes, uncomplicated; I10 Essential (primary) hypertension
CPT/HCPCS: 73502; 99283

== ENCOUNTER 2024-07-19 06:52 | Emergency (ER) | payer MEDICARE, MEDICAID, SELFPAY ==
[2024-07-19 07:02] VITALS: BP 160/86; PULSE 97; RESP 17; TEMP 36.8; O2SAT 95; BMI 50.1
--- NOTE | 2024-07-19 07:10 | W.ED.BACK ---
HPI - Back Pain/Injury General: Chief Complaint: Back Pain/Injury Stated Complaint: low back pain Time Seen by Provider: 07/19/24 06:53 Source: patient Mode of arrival: ambulatory Limitations: no limitations History of Present Illness: 43-year-old female states she been having back pain over the last few weeks states that history of chronic back pain pains in her left lower back denies any injury she is able ambulate denies any bowel or bladder incontinence. Associated symptoms: Deny abdominal pain, chills, fever(s), nausea or vomiting Related Data Home Medications Medication Instructions Recorded Confirmed albuterol sulfate 90 mcg/actuation 1 - 2 puff inhalation Q4H PRN 09/19/23 03/10/24 aerosol inhaler (Ventolin HFA) Shortness Of Breath buprenorphine HCl 2 mg sublingual 4 mg sublingual .@ LUNCH 03/10/24 03/10/24 tablet buprenorphine HCl 8 mg sublingual 8 mg sublingual BID 03/10/24 03/10/24 tablet bupropion HCl 300 mg 24 hr tablet, 300 mg PO QAM 03/10/24 03/10/24 extended release (Wellbutrin XL) buspirone 10 mg tablet 20 mg PO TID 03/10/24 03/10/24 miconazole nitrate 2 % topical 1 applic topical BID PRN Rash 03/10/24 03/10/24 powder (Antifungal (miconazole)) Previous Rx's Medication Instructions Recorded gabapentin 600 mg tablet 600 mg PO TID 30 days #90 tabs 12/17/23 trazodone 150 mg tablet 150 mg PO BEDTIME PRN insomnia 30 03/12/24 days #30 tabs methocarbamol 750 mg tablet 750 mg PO Q6H PRN spasms #20 tabs 05/18/24 naproxen 500 mg tablet (Naprosyn) 500 mg PO BID PRN pain #20 tabs 05/18/24 methocarbamol 750 mg tablet 750 mg PO Q6H PRN spasms #20 tabs 07/19/24 naproxen 500 mg tablet (Naprosyn) 500 mg PO BID PRN pain #20 tabs 07/19/24 Allergies Allergy/AdvReac Type Severity Reaction Status Date / Time naltrexone Allergy ALGY-Difficulty Verified 05/18/24 20:24 Breathing Review of Systems Const: Denies: fever(s), chills, body aches or change in appetite ENMT: Denies: throat pain or dental pain Card: Denies: chest pain Resp: Denies: dyspnea GI: Denies: abdominal pain, nausea, vomiting or diarrhea Musc: Reports: back pain; Denies: neck pain Skin/Breast: Denies: rash Neuro: Denies: headache(s) PFSH ED PFSH: Medical History Depression History of attempted suicide Psychiatric care Opiate abuse, episodic Methamphetamine dependence, episodic Pyuria Morbid obesity with BMI of 50.0-59.9, adult Fatty infiltration of liver Abnormal uterine bleeding (AUB) Urinary incontinence Asthma Benign essential HTN Uncontrolled type 2 diabetes mellitus, without long-term current use of insulin Hypothyroidism DDD (degenerative disc disease) Intervertebral disc disorders with radiculopathy, lumbar region Bilateral primary osteoarthritis of knee Gender dysphoria Nicotine dependence, cigarettes, uncomplicated Major depressive disorder, recurrent severe without psychotic features Surgical History History of ureter stent S/P laparoscopic appendectomy (04/19/20) History of endometrial biopsy (04/13/20) benign endocervical epithelium Hx of foot surgery Family History Mother Diabetes Sister Cancer ovarian Other Dementia Heart disease Hypertension Psychiatric illness Denies family history of CAD (coronary artery disease) Clotting disorder Hyperlipidemia Chronic kidney disease (CKD) Anesthesia complication Bleeding disorder Lung disease Stroke Social History Smoking and tobacco/nicotine status: current every day tobacco/nicotine user cigarettes Packs smoked per day: 0.50 Alcohol intake: current Alcohol intake frequency: other Alcohol type: beer and hard liquor Substance/Drug Use: former Date of last use: 2017 Lives independently: Yes Household members: other Details: partner and her mom Marital status: Single Number of children: 0 Current occupational status: disabled Current gender identity: Male and Other Gender Identity Comment: Goes by Saul, considering formal transition Special hero needs: No Agree to transfusion: Yes Physical Exam Const: COMMON NORMALS: no acute distress, patient oriented x3 and healthy appearing HENMT: COMMON NORMALS: normocephalic HEAD & SCALP: normocephalic Eye: COMMON NORMALS: conjunctivae normal CONJUNCTIVA: Yes conjunctivae normal Neck/C-Spine: COMMON NORMALS: full ROM and supple Chest: COMMONS NORMALS: normal inspection of the chest Resp: COMMON NORMALS: normal respiratory effort Cardio: COMMON NORMALS: regular rate, regular rhythm and No murmurs present (Cardio) RATE: regular rate RHYTHM: regular rhythm Back/Pelvis: OTHER: Tenderness left lower back no saddle anesthesia Extremity: COMMON NORMALS: normal to inspection and full ROM Neuro: COMMON NORMALS: patient oriented x3, moves all extremities and no focal motor deficits Psych: COMMON NORMALS: mental status grossly normal, Normal thought process present and cooperative THOUGHT PROCESS: Normal thought process present Skin: COMMON NORMALS: no rashes or lesions noted and no wounds GENERAL SKIN EXAM: no rashes or lesions noted Course Vital Signs: Vital signs: Vital Signs Temperature 98.3 F 07/19/24 07:02 Pulse Rate 97 07/19/24 07:02 Respiratory Rate 17 07/19/24 07:02 Blood Pressure 160/86 07/19/24 07:02 Pulse Oximetry 95 07/19/24 07:02 Oxygen Delivery Me thod Room Air 07/19/24 07:02 MDM - Back Pain/Injury Medical Decision Making Patient presents here with back pain likely muscular in nature she is well-appearing here stable for discharge follow-up with PCP return if worsening No radiology studies performed this visit Discharge Plan Discharge Patient Disposition: Home Clinical Impression: Low back pain Condition: Stable Prescriptions: New methocarbamol 750 mg tablet 750 mg PO Q6H PRN (Reason: spasms) Qty: 20 0RF naproxen [Naprosyn] 500 mg tablet 500 mg PO BID PRN (Reason: pain) Qty: 20 0RF No Action gabapentin 600 mg tablet 600 mg PO TID 30 Days Qty: 90 0RF albuterol sulfate [Ventolin HFA] 90 mcg/actuation HFA aerosol inhaler 1 - 2 puff INHALATION Q4H PRN (Reason: Shortness Of Breath) Antifungal (miconazole) 2 % Powder 1 applic TOPICAL BID PRN (Reason: Rash) buspirone 10 mg tablet 20 mg PO TID buprenorphine HCl 2 mg Tablet, Sublingual 4 mg SUBLINGUAL .@ LUNCH buprenorphine HCl 8 mg Tablet, Sublingual 8 mg SUBLINGUAL BID Wellbutrin XL 300 mg Tablet Extended Release 24 Hr 300 mg PO QAM trazodone 150 mg tablet 150 mg PO BEDTIME PRN (Reason: insomnia) 30 Days Qty: 30 1RF methocarbamol 750 mg tablet 750 mg PO Q6H PRN (Reason: spasms) Qty: 20 0RF naproxen [Naprosyn] 500 mg tablet 500 mg PO BID PRN (Reason: pain) Qty: 20 0RF Discharge Orders: Discharge ED (Routine); Ordered 07/19/24 Ordered By: Nolan Rodriguez Discharge Diet: Advance as tolerated Discharge Activity: Resume usual activity Patient Instructions: Back Pain (ED) 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
[2024-07-19] MEDS: methocarbamol 750 mg Tablet 1500 MG PO (07:17)
[2024-07-19] MEDS: HYDROcodone-acetaminophen 5-325 mg Tablet 1 TAB PO (07:18)
[2024-07-19 07:19] VITALS: BP 142/81; PULSE 92; RESP 16; O2SAT 97
== END 2024-07-19 07:21 | disposition home or self-care (01) ==
PROVIDERS: Emergency Provider Emergency Medicine
DX: M54.50 Low back pain, unspecified (principal); F17.210 Nicotine dependence, cigarettes, uncomplicated; E11.9 Type 2 diabetes mellitus without complications; I10 Essential (primary) hypertension
CPT/HCPCS: 99283

== ENCOUNTER 2024-10-04 08:06 | Emergency (ER) | payer MEDICARE, MEDICAID, SELFPAY ==
[2024-10-04 08:16] VITALS: BP 170/109; PULSE 79; RESP 26; TEMP 36.3; O2SAT 97
--- NOTE | 2024-10-04 08:41 | W.ED.BACK ---
HPI - Back Pain/Injury General: Chief Complaint: Back Pain/Injury Stated Complaint: lower back pain Time Seen by Provider: 10/04/24 08:16 History of Present Illness: 43-year-old female presents emergency room with complaint of low back pain. She states has been present over the last several months she cannot recall precipitating event there is no traumatic event. At times it radiates into her lower extremities. She has no difficulty with urinary retention or fecal incontinence. No previous surgeries to her back. Patient is moderately overweight has chronically had back issues has been seen several times in the past for same complaint. She has tried several [id number] medications with no significant relief. She does on buprenorphine regular. Associated symptoms: Deny abdominal pain, chills, dysuria, fever(s) or urinary urgency Related Data Previous Rx's ?Medication ?Instructions ?Recorded diclofenac sodium 75 mg 75 mg PO Q12H PRN pain #20 tabs 10/04/24 tablet,delayed release prednisone 20 mg tablet 20 mg PO TID #15 tabs 10/04/24 tizanidine 4 mg tablet 4 mg PO Q6H PRN muscle spasticity 10/04/24 #20 tabs Allergies Allergy/AdvReac Type Severity Reaction Status Date / Time naltrexone Allergy ALGY-Difficulty Verified 05/18/24 20:24 Breathing Review of Systems Const: Denies: fever(s) or chills Card: Denies: chest pain Resp: Denies: dyspnea GI: Denies: abdominal pain : Denies: dysuria, urinary frequency or urinary urgency Musc: Denies: neck pain or back pain Skin/Breast: Denies: rash PFSH ED PFSH: Medical History Depression History of attempted suicide Psychiatric care Opiate abuse, episodic Methamphetamine dependence, episodic Pyuria Morbid obesity with BMI of 50.0-59.9, adult Fatty infiltration of liver Abnormal uterine bleeding (AUB) Urinary incontinence Asthma Benign essential HTN Uncontrolled type 2 diabetes mellitus, without long-term current use of insulin Hypothyroidism DDD (degenerative disc disease) Intervertebral disc disorders with radiculopathy, lumbar region Bilateral primary osteoarthritis of knee Gender dysphoria Nicotine dependence, cigarettes, uncomplicated Major depressive disorder, recurrent severe without psychotic features Surgical History History of ureter stent S/P laparoscopic appendectomy (04/19/20) History of endometrial biopsy (04/13/20) benign endocervical epithelium Hx of foot surgery Family History Mother Diabetes Sister Cancer ovarian Other Dementia Heart disease Hypertension Psychiatric illness Denies family history of CAD (coronary artery disease) Clotting disorder Hyperlipidemia Chronic kidney disease (CKD) Anesthesia complication Bleeding disorder Lung disease Stroke Social History Smoking and tobacco/nicotine status: current every day tobacco/nicotine user cigarettes Packs smoked per day: 0.50 Alcohol intake: current Alcohol intake frequency: other Alcohol type: beer and hard liquor Substance/Drug Use: former Date of last use: 2017 Lives independently: Yes Household members: other Details: partner and her mom Marital status: Single Number of children: 0 Current occupational status: disabled Current gender identity: Male and Other Gender Identity Comment: Goes by Saul, considering formal transition Special hero needs: No Agree to transfusion: Yes Physical Exam Const: COMMON NORMALS: no acute distress GENERAL APPEARANCE: cooperative and comfortable ORIENTATION/CONSCIOUSNESS: Yes awake, Yes oriented to person, Yes oriented to place and Yes oriented to time HENMT: COMMON NORMALS: normocephalic, atraumatic and hearing grossly normal bilaterally HEAD & SCALP: normocephalic and atraumatic Resp: COMMON NORMALS: normal respiratory effort, No retractions, No use of accessory muscles and clear to auscultation bilaterally AUSCULTATION: clear to auscultation bilaterally Cardio: COMMON NORMALS: regular rate, regular rhythm and No murmurs present (Cardio) RATE: regular rate RHYTHM: regular rhythm Extremity: COMMON NORMALS: normal to inspection, capillary refill normal, no clubbing, cyanosis or edema, no calf tenderness and no pedal edema Neuro: SENSORIUM/ORIENTATION: Yes oriented to person, Yes oriented to place and Yes oriented to time OTHER: Lower extremities neurovascularly intact. Dorsum plantarflexion 5/5 at the the ankle. Sensation lower extremities normal unable to elicit deep tendon reflexes patellar tendon patient would not tolerate exam. Skin: COMMON NORMALS: no rashes or lesions noted GENERAL SKIN EXAM: no rashes or lesions noted Course Vital Signs: Vital signs: Vital Signs Temperature 97.4 F L 10/04/24 08:16 Pulse Rate 70 10/04/24 10:33 Respiratory Rate 22 H 10/04/24 10:02 Blood Pressure 163/107 10/04/24 10:33 Pulse Oximetry 96 10/04/24 10:33 Oxygen Delivery Me thod Room Air 10/04/24 08:16 MDM - Back Pain/Injury Medical Decision Making No trauma signs or symptoms or exam findings suggestive of cauda equina moderate relief of symptoms with meds given. Will discharge home with diclofenac tizanidine prednisone taper and have her follow-up with Dr. Smith in the office. Medical Records I reviewed the patient's medical records. Labs I reviewed the patient's lab results. No radiology studies performed this visit Discharge Plan Discharge Patient Disposition: Home Clinical Impression: Lumbar radiculopathy Condition: Stable Prescriptions: New tizanidine 4 mg tablet 4 mg PO Q6H PRN (Reason: muscle spasticity) Qty: 20 0RF Rx Instructions: do not exceed 3 doses per 24 hrs prednisone 20 mg tablet 20 mg PO TID Qty: 15 0RF Rx Instructions: 1 p.o. 3 times daily x3 days, 1 p.o. twice daily x2 days, 1 p.o. daily x2 days diclofenac sodium 75 mg tablet,delayed release (DR/EC) 75 mg PO Q12H PRN (Reason: pain) Qty: 20 0RF Discharge Orders: Discharge ED (Routine); Ordered 10/04/24 Ordered By: Azar Valle Discharge Diet: Usual diet Discharge Activity: Increase activity as tolerated Patient Instructions: Opioid Safety, Pain Management Activity Restrictions/Additional Instructions: Thank you for choosing [facility] for your healthcare needs today. It is very important that you follow up as instructed or that you return to the Emergency Department should you have concerns or if your condition changes or worsens in any way. You were seen in the emergency room today with complaints of back pain. You are given medications to help alleviate. He will be discharged home with diclofenac prednisone taper and tizanidine. Use the tizanidine diclofenac as needed. Case management will make arrangements for you to follow-up with orthopedic spine surgery to further evaluate your back. 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
--- NOTE | 2024-10-04 08:43 | PC.PHAR ---
patient states no medication currently. last fill dates on paroxetine, bupropion, propranolol and trazodone were 12/17/23 30 days. so well past overdue
[2024-10-04] MEDS: ketorolac 30 mg/mL INJ IVP (08:53)
[2024-10-04] MEDS: orphenadrine 30 mg/mL Inj 2 mL 60 MG IM (08:54)
[2024-10-04] MEDS: methylPREDNISolone sod succ 125 mg/2 mL INJ IVP (08:54)
[2024-10-04 10:02] VITALS: RESP 22; O2SAT 96
[2024-10-04] MEDS: morphine 4 mg/mL SDV 1 mL IVP (10:02)
[2024-10-04 10:33] VITALS: BP 163/107; PULSE 70; O2SAT 96
--- NOTE | 2024-10-04 16:05 | DCPLANNER ---
messaged ortho for er f/u
== END 2024-10-04 10:34 | disposition home or self-care (01) ==
PROVIDERS: Emergency Provider Family Medicine
DX: M54.16 Radiculopathy, lumbar region (principal); F17.210 Nicotine dependence, cigarettes, uncomplicated; I10 Essential (primary) hypertension; E11.9 Type 2 diabetes mellitus without complications
CPT/HCPCS: 96372; 96374; 96375; 99284; J1885; J2270; J2360; J2919

== ENCOUNTER 2024-10-12 06:24 | Emergency (ER) | payer MEDICARE, MEDICAID, SELFPAY ==
[2024-10-12 06:25] VITALS: BP 157/115; PULSE 90; RESP 18; TEMP 36.6; O2SAT 96; BMI 50.1
--- NOTE | 2024-10-12 06:30 | ED_ITS ---
HPI - Back Pain/Injury General: Chief Complaint: Back Pain/Injury Stated Complaint: back pain Time Seen by Provider: 10/12/24 06:29 History of Present Illness: 43-year-old female was seen last 8 days ago for back pain was placed on a steroid taper tizanidine diclofenac. Returns EMS reporting that her muscle relaxers were discarded by someone in her household. She has a follow-up appointment with Dr. Smith today or tomorrow she is not certain exactly when. Associated symptoms: Deny abdominal pain, chills, dysuria, fever(s) or urinary urgency Related Data Previous Rx's ?Medication ?Instructions ?Recorded diclofenac sodium 75 mg 75 mg PO Q12H PRN pain #20 t abs 10/12/24 tablet,delayed release gabapentin 600 mg tablet 600 mg PO TID 30 days #90 ta bs 10/12/24 tizanidine 4 mg tablet 4 mg PO Q6H PRN muscle spast icity 10/12/24 #20 tabs Allergies Allergy/AdvReac Type Severity Reaction Status Date / Time naltrexone Allergy ALGY-Difficulty Verified 10/12/24 06:31 Breathing Review of Systems Const: Denies: fever(s) or chills Card: Denies: chest pain Resp: Denies: dyspnea GI: Denies: abdominal pain : Denies: dysuria, urinary frequency or urinary urgency Musc: Reports: back pain; Denies: neck pain Skin/Breast: Denies: rash PFSH ED PFSH: Medical History Depression History of attempted suicide Psychiatric care Opiate abuse, episodic Methamphetamine dependence, episodic Pyuria Morbid obesity with BMI of 50.0-59.9, adult Fatty infiltration of liver Abnormal uterine bleeding (AUB) Urinary incontinence Asthma Benign essential HTN Uncontrolled type 2 diabetes mellitus, without long-term current use of insulin Hypothyroidism DDD (degenerative disc disease) Intervertebral disc disorders with radiculopathy, lumbar region Bilateral primary osteoarthritis of knee Gender dysphoria Nicotine dependence, cigarettes, uncomplicated Major depressive disorder, recurrent severe without psychotic features Surgical History History of ureter stent S/P laparoscopic appendectomy (04/19/20) History of endometrial biopsy (04/13/20) benign endocervical epithelium Hx of foot surgery Family History Mother Diabetes Sister Cancer ovarian Other Dementia Heart disease Hypertension Psychiatric illness Denies family history of CAD (coronary artery disease) Clotting disorder Hyperlipidemia Chronic kidney disease (CKD) Anesthesia complication Bleeding disorder Lung disease Stroke Social History Smoking and tobacco/nicotine status: unknown if used tobacco/nicotine Alcohol intake: current Alcohol intake frequency: other Alcohol type: beer and hard liquor Substance/Drug Use: former Date of last use: 2017 Lives independently: Yes Household members: other Details: partner and her mom Marital status: Single Number of children: 0 Current occupational status: disabled Current gender identity: Male and Other Gender Identity Comment: Goes by Saul, considering formal transition Special hero needs: No Agree to transfusion: Yes Physical Exam Const: COMMON NORMALS: no acute distress GENERAL APPEARANCE: cooperative and comfortable ORIENTATION/CONSCIOUSNESS: Yes awake, Yes oriented to person, Yes oriented to place and Yes oriented to time HENMT: COMMON NORMALS: normocephalic, atraumatic and hearing grossly normal bilaterally HEAD & SCALP: normocephalic and atraumatic Resp: COMMON NORMALS: normal respiratory effort, No retractions, No use of accessory muscles and clear to auscultation bilaterally AUSCULTATION: clear to auscultation bilaterally Cardio: COMMON NORMALS: regular rate, regular rhythm and No murmurs present (Cardio) RATE: regular rate RHYTHM: regular rhythm GI: COMMON NORMALS: Soft to palpation and No hepatosplenomegaly present AUSCULTATION: Yes normoactive bowel sounds PALPATION: Yes Soft to palpation, No Tenderness to palpation present (GI), No Guarding due to palpation present (GI) and Yes No hepatosplenomegaly present Extremity: COMMON NORMALS: normal to inspection, capillary refill normal, no clubbing, cyanosis or edema, no calf tenderness and no pedal edema Neuro: SENSORIUM/ORIENTATION: Yes oriented to person, Yes oriented to place and Yes oriented to time Skin: COMMON NORMALS: no rashes or lesions noted GENERAL SKIN EXAM: no rashes or lesions noted Course Vital Signs: Vital signs: Vital Signs Temperature 97.8 F 10/12/24 06:25 Pulse Rate 94 10/12/24 07:53 Respiratory Rate 18 10/12/24 06:25 Blood Pressure 154/100 10/12/24 07:53 Pulse Oximetry 92 03/25/25 07:53 Oxygen Delivery Me thod Room Air 10/12/24 06:25 MDM - Back Pain/Injury Medical Decision Making Chronic back pain patient was given Toradol steroids here discharge her home on tizanidine diclofenac she has an appoint with Dr. Smith today they can make further medication adjustments and imaging from there she has no new trauma or injury this is a continuation of the chronic back pain she has had in the past Medical Records I reviewed the patient's medical records. Labs I reviewed the patient's lab results. All radiology interpretation(s) finalized by discharge Discharge Plan Discharge Patient Disposition: Home Clinical Impression: Lumbar radiculopathy Condition: Stable Prescriptions: New tizanidine 4 mg tablet 4 mg PO Q6H PRN (Reason: muscle spasticity) Qty: 20 0RF Rx Instructions: do not exceed 3 doses per 24 hrs diclofenac sodium 75 mg tablet,delayed release (DR/EC) 75 mg PO Q12H PRN (Reason: pain) Qty: 20 0RF Discontinued tizanidine 4 mg tablet 4 mg PO Q6H PRN (Reason: muscle spasticity) Qty: 20 0RF Rx Instructions: do not exceed 3 doses per 24 hrs prednisone 20 mg tablet 20 mg PO TID Qty: 15 0RF Rx Instructions: 1 p.o. 3 times daily x3 days, 1 p.o. twice daily x2 days, 1 p.o. daily x2 days diclofenac sodium 75 mg tablet,delayed release (DR/EC) 75 mg PO Q12H PRN (Reason: pain) Qty: 20 0RF No Action gabapentin 600 mg tablet 600 mg PO TID 30 Days Qty: 90 0RF Discharge Orders: Discharge ED (Routine); Ordered 10/12/24 Ordered By: Azar Valle Discharge Diet: Usual diet Discharge Activity: Increase activity as tolerated Patient Instructions: Cervical Strain (ED), Acute Neck Pain (ED), Opioid Safety, Pain Management Activity Restrictions/Additional Instructions: Thank you for choosing [facility] for your healthcare needs today. It is very important that you follow up as instructed or that you return to the Emergency Department should you have concerns or if your condition changes or worsens in any way. You were seen for your chronic back pain today. We did give you another prescription for diclofenac and tizanidine. Follow-up with Dr. 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
[2024-10-12] MEDS: methylPREDNISolone sod succ 125 mg/2 mL INJ IVP (07:38)
[2024-10-12] MEDS: orphenadrine 30 mg/mL Inj 2 mL 60 MG IVP (07:38)
[2024-10-12] MEDS: ketorolac 30 mg/mL INJ IM (07:51)
--- NOTE | 2024-10-12 07:51 | PC.NURSE ---
PT initially refused toradol injection, stating that it did not help and burned too bad. when PT was informed she could not get morphine per Dr. luna she began to ask for the toradol.
[2024-10-12 07:53] VITALS: BP 154/100; PULSE 94; O2SAT 92
== END 2024-10-12 07:54 | disposition home or self-care (01) ==
PROVIDERS: Emergency Provider Family Medicine
DX: M54.16 Radiculopathy, lumbar region (principal); E11.9 Type 2 diabetes mellitus without complications; I10 Essential (primary) hypertension
CPT/HCPCS: 72110; 96372; 96374; 96375; 99213; 99284; J1885; J2360; J2919

== ENCOUNTER 2024-10-22 15:49 | Outpatient (CLI) | payer MEDICARE, MEDICAID, SELFPAY ==
--- NOTE | 2024-10-22 16:00 | MR_ITS ---
WS: [id number] MRI LUMBAR SPINE NONCONTRAST TECHNIQUE: Sagittal T1, T2 and STIR imaging. Axial T1 and T2 imaging. CLINICAL INFORMATION: back pain COMPARISON: CT 2019 FINDINGS: Some images degraded by motion Mild lumbar curve. No acute compression. L1-L2: Normal. L2-L3: Mild disc bulging. Mild facet arthropathy. Spinal canal and foramina are patent. L3-L4: Mild disc bulging with slight effacement of the ventral thecal sac. Moderate facet arthropathy. Mild LEFT foraminal narrowing with slight impingement on the exiting LEFT L3 nerve root. L4-L5: Mild disc bulging with moderate central canal stenosis. Impingement on the traversing RIGHT L5 nerve root. Advanced facet arthropathy. Moderate RIGHT foraminal narrowing. L5-S1: Mild disc bulging with slight effacement of the ventral thecal sac. Moderate LEFT foraminal narrowing. Moderate facet arthropathy. Visualized pelvic bony structures: Normal. Paravertebral soft tissues: Normal. MR/MR lumbar spine wo con* [id number] IMPRESSION: 1. Disc bulging L4-5 with impingement RIGHT subarticular recess and traversing RIGHT L5 nerve root. Moderate central canal stenosis with advanced facet arthr opathy and ligamentum flavum hypertrophy. 2. Moderate RIGHT L4-5 and LEFT L5-S1 foraminal narrowing. 3. Small LEFT foraminal protrusion L3-4 slightly impinges the exiting LEFT L3 nerve root. 4. Moderate to advanced facet arthropathy L3-L5.
== END 2024-10-22 15:50 | disposition home or self-care (01) ==
LOC: RAD 15:51
PROVIDERS: PCP Orthopaedic Surgery; Visit Provider Orthopaedic Surgery
DX: M54.16 Radiculopathy, lumbar region (principal); M51.369 Other intervertebral disc degeneration, lumbar region without mention of lumbar back pain or lower extremity pain; R93.7 Abnormal findings on diagnostic imaging of other parts of musculoskeletal system; M48.061 Spinal stenosis, lumbar region without neurogenic claudication; M47.896 Other spondylosis, lumbar region; M89.38 Hypertrophy of bone, other site; M48.07 Spinal stenosis, lumbosacral region; M51.26 Other intervertebral disc displacement, lumbar region; M43.8X6 Other specified deforming dorsopathies, lumbar region; M51.379 Other intervertebral disc degeneration, lumbosacral region without mention of lumbar back pain or lower extremity pain; M47.897 Other spondylosis, lumbosacral region
CPT/HCPCS: 72148

== ENCOUNTER → 2024-11-04 13:22 | Outpatient (BNVA) | payer MEDICARE, MEDICAID, SELFPAY | PROVIDERS: PCP Orthopaedic Surgery; Visit Provider Orthopaedic Surgery | DX: M51.16 Intervertebral disc disorders with radiculopathy, lumbar region (principal) | CPT/HCPCS: 99214 ==

== ENCOUNTER 2024-11-06 14:42 | Emergency (ER) | payer MEDICARE, MEDICAID, SELFPAY ==
[2024-11-06 14:42] VITALS: BP 117/84; PULSE 83; RESP 18; TEMP 36.7; O2SAT 97; BMI 54.2
--- NOTE | 2024-11-06 15:04 | W.ED.BACK ---
HPI - Back Pain/Injury General: Chief Complaint: Back Pain/Injury Stated Complaint: chronic back pain Time Seen by Provider: 11/06/24 14:51 Source: patient Mode of arrival: EMS Limitations: no limitations History of Present Illness: Patient is a 43-year-old female that presents to the emergency department with chronic back pain. She states her medications that she has on have been helping but she continues to have more pain. She denies any fever or chills. She denies any loss of bowel or bladder control. She denies any new injuries. She states she has been dealing with this for several years. She reports the pain is radiating down the back of her legs. She states it is starting to radiate up the right side of her mid back as well. She denies any pain or burning with urination. She denies any blood in her urine. She denies any rash or blistering. She denies and states she has had a hysterectomy. She presents to the emergency department for further evaluation and treatment. MD elicited complaint: back pain Pertinent past history: prior back pain (No recent injury) Associated symptoms: Deny abdominal pain, chills, fever(s), nausea or vomiting Related Data Home Medications ?Medication ?Instructions ?Recorded ?Confirmed acetaminophen 500 mg tablet 500 mg PO Q6H PRN Pain 11/06/24 11/06/24 Previous Rx's ?Medication ?Instructions ?Recorded gabapentin 600 mg tablet 600 mg PO TID 30 days #90 tabs 10/12/24 methocarbamol 750 mg tablet 1,500 mg (2 x 750 mg) PO TID PRN 11/06/24 muscle pain #30 tabs naproxen 500 mg tablet 500 mg PO Q12H PRN pain #10 tabs 11/06/24 prednisone 20 mg tablet 40 mg (2 x 20 mg) PO DAILY 5 days 11/06/24 #20 tabs Allergies Allergy/AdvReac Type Severity Reaction Status Date / Time naltrexone Allergy ALGY-Difficulty Verified 11/04/24 13:30 Breathing Review of Systems Const: Denies: fever(s) or chills Eyes: Denies: change in vision ENMT: Denies: throat pain or swelling of lips/tongue Card: Denies: chest pain or edema Resp: Denies: dyspnea or wheezing GI: Denies: abdominal pain, nausea or vomiting : Denies: flank pain Musc: Reports: back pain (Right low back); Denies: neck pain Skin/Breast: Denies: rash or erythema Neuro: Denies: headache(s), numbness in extremities or weakness in extremities Psych: Denies: anxiety or depression Endo: Denies: polyuria All/Imm: Denies: urticaria, throat swelling or tongue swelling PFSH ED PFSH: Medical History (Updated 11/06/24 @ 15:17 by JONO Jamison) Depression History of attempted suicide Psychiatric care Opiate abuse, episodic Methamphetamine dependence, episodic Pyuria Morbid obesity with BMI of 50.0-59.9, adult Fatty infiltration of liver Abnormal uterine bleeding (AUB) Urinary incontinence Asthma Benign essential HTN Uncontrolled type 2 diabetes mellitus, without long-term current use of insulin Hypothyroidism DDD (degenerative disc disease) Intervertebral disc disorders with radiculopathy, lumbar region Bilateral primary osteoarthritis of knee Gender dysphoria Nicotine dependence, cigarettes, uncomplicated Major depressive disorder, recurrent severe without psychotic features Surgical History (Updated 11/06/24 @ 15:09 by JONO Jamison) H/O: hysterectomy History of ureter stent S/P laparoscopic appendectomy (04/19/20) History of endometrial biopsy (04/13/20) benign endocervical epithelium Hx of foot surgery Family History Mother Diabetes Sister Cancer ovarian Other Dementia Heart disease Hypertension Psychiatric illness Denies family history of CAD (coronary artery disease) Clotting disorder Hyperlipidemia Chronic kidney disease (CKD) Anesthesia complication Bleeding disorder Lung disease Stroke Social History Smoking and tobacco/nicotine status: current every day tobacco/nicotine user cigarettes Packs smoked per day: 0.50 Alcohol intake: current Alcohol intake frequency: other Alcohol type: beer and hard liquor Substance/Drug Use: former Date of last use: 2017 Lives independently: Yes Household members: other Details: partner and her mom Marital status: Single Number of children: 0 Current occupational status: disabled Current gender identity: Male and Other Gender Identity Comment: Goes by Saul, considering formal transition Special hero needs: No Agree to transfusion: Yes Female Reproductive History: control method: other (Hysterectomy) Physical Exam Const: COMMON NORMALS: patient oriented x3 and alert GENERAL APPEARANCE: cooperative HENMT: COMMON NORMALS: normocephalic and Normal external nose present; head/scalp not atraumatic HEAD & SCALP: normocephalic; not atraumatic NOSE: Normal external nose present Eye: COMMON NORMALS: conjunctivae normal GENERAL EYE: appearance normal, both eyes and all related structures CONJUNCTIVA: Yes conjunctivae normal Neck/C-Spine: COMMON NORMALS: full ROM Resp: COMMON NORMALS: normal respiratory effort and clear to auscultation bilaterally EFFORT & INSPECTION: Yes able to speak in complete sentences AUSCULTATION: clear to auscultation bilaterally, no crackles, no rales, no rhonchi and no wheezes Cardio: COMMON NORMALS: regular rate and regular rhythm RATE: regular rate RHYTHM: regular rhythm GI: COMMON NORMALS: Soft to palpation and non-tender PALPATION: Yes Soft to palpation : COMMON NORMALS: Yes no CVA tenderness BLADDER/KIDNEY EXAM: Yes no CVA tenderness Back/Pelvis: COMMON NORMALS: no CVA tenderness LUMBAR SPINE/LOWER BACK: Yes normal to inspection (No rashes or blistering), Yes pain with ROM, Yes paraspinal muscle tenderness (In the right lumbar region) Lumbar paraspinal muscle tenderness: right and Yes paraspinal muscle spasm Extremity: COMMON NORMALS: no calf tenderness and no pedal edema NARRATIVE EXTREMITY EXAM: Patient denies any numbness and there is no weakness on exam. Neuro: COMMON NORMALS: patient oriented x3 SENSORIUM/ORIENTATION: Yes alert Psych: COMMON NORMALS: mental status grossly normal, cooperative, normal affect and speech normal SPEECH: Yes normal speech Skin: COMMON NORMALS: no rashes or lesions noted and no petechiae GENERAL SKIN EXAM: no rashes or lesions noted Course Vital Signs: Vital signs: Vital Signs Temperature 98.1 F 11/06/24 14:42 Pulse Rate 83 11/06/24 14:42 Respiratory Rate 18 11/06/24 14:42 Blood Pressure 117/84 11/06/24 14:42 Pulse Oximetry 97 11/06/24 14:42 Oxygen Delivery Me thod Room Air 11/06/24 14:42 MDM - Back Pain/Injury Medical Decision Making Patient denies any fall or traumatic injury. She has an appointment on with pain management for evaluation and treatment of her chronic back pain. She states initially they will do an assessment and then do some spinal injections for her. She states her current medications have not seemed to be helping much with the pain. We will have her discontinue the diclofenac and tizanidine and we will try her on prednisone, naproxen and Robaxin to use as directed. She was advised to follow-up with her primary care provider and the pain clinic as scheduled. I recommended she return to the emergency department with any worsening symptoms. The patient expressed understanding. Differential Diagnosis Likely lumbar radiculopathy, sciatica and strain of lumbar region Medical Records I reviewed the patient's medical records. No radiology studies performed this visit Critical Care Time Critical Care Time: Critical Care Time: No Discharge Plan Discharge Patient Disposition: Home Clinical Impression: Chronic bilateral low back pain with bilateral sciatica Condition: Stable Prescriptions: New prednisone 20 mg tablet 40 mg PO DAILY 5 Days Qty: 20 0RF methocarbamol 750 mg tablet 1,500 mg PO TID PRN (Reason: muscle pain) Qty: 30 0RF Rx Instructions: No alcohol use or driving with this medication. naproxen 500 mg tablet 500 mg PO Q12H PRN (Reason: pain) Qty: 10 0RF Discontinued tizanidine 4 mg tablet 4 mg PO Q6H PRN (Reason: muscle spasticity) Qty: 20 0RF Rx Instructions: do not exceed 3 doses per 24 hrs diclofenac sodium 75 mg tablet,delayed release (DR/EC) 75 mg PO Q12H PRN (Reason: pain) Qty: 20 0RF No Action gabapentin 600 mg tablet 600 mg PO TID 30 Days Qty: 90 0RF acetaminophen 500 mg Tablet 500 mg PO Q6H PRN (Reason: Pain) Discharge Orders: Discharge ED (Routine); Ordered 11/06/24 Ordered By: Austin Khan Referrals: Emery Smith DO [Primary Care Provider] - Discharge Diet: Usual diet Discharge Activity: Increase activity as tolerated Patient Instructions: Opioid Safety, Pain Management, Lower Back Exercises (ED), Sciatica (ED) Activity Restrictions/Additional Instructions: Take medications as directed. Your prescriptions were sent electronically to the [facility] pharmacy in [place]. Please discontinue taking the diclofenac and tizanidine while you are taking the new medications. Avoid activities that make the pain worse such as bending, lifting, twisting etc. Alternate ice and heat to the back. Ice for 20 minutes, then nothing for 20 minutes, then heat for 20 minutes. Repeat 4-5 times throughout the day. Follow-up with your doctor within 1 week for recheck. Follow-up with the pain clinic on as scheduled. Return to the emergency department with any worsening symptoms such as fever, rash, loss of bowel or bladder control or any other worsening symptoms. 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
[2024-11-06] MEDS: dexamethasone 10 mg/mL INJ IM (15:20)
[2024-11-06] MEDS: orphenadrine 30 mg/mL Inj 2 mL 60 MG IM (15:20)
== END 2024-11-06 15:35 | disposition home or self-care (01) ==
PROVIDERS: Emergency Provider Physician Assistant; PCP Orthopaedic Surgery
DX: M54.50 Low back pain, unspecified (principal); M54.32 Sciatica, left side; M54.31 Sciatica, right side; F17.210 Nicotine dependence, cigarettes, uncomplicated; E11.9 Type 2 diabetes mellitus without complications; I10 Essential (primary) hypertension
CPT/HCPCS: 12345; 96372; 99284; J1100; J2360

== ENCOUNTER 2024-11-06 23:43 | Emergency (ER) | payer MEDICARE, MEDICAID, SELFPAY ==
[2024-11-06 23:44] VITALS: PULSE 102; RESP 18; TEMP 36; O2SAT 94; BMI 47.5
--- NOTE | 2024-11-06 23:54 | W.ED.ALCOHOL ---
HPI - Alcohol General: Chief Complaint: Alcohol Stated Complaint: ETOH Time Seen by Provider: 11/06/24 23:45 Source: patient and EMS Mode of arrival: EMS Limitations: no limitations History of Present Illness: 43-year-old female well-known to the ER has a history of alcohol abuse patient states she been drinking heavily tonight does not have a ride there EMS was called she was originally combative with EMS she is now calm down. She denies any SI or HI has no other complaints besides she states she did drink too much Associated symptoms: Deny abdominal pain, nausea, suicidal ideation or vomiting Related Data Home Medications ?Medication ?Instructions ?Recorded ?Confirmed acetaminophen 500 mg tablet 500 mg PO Q6H PRN Pain 11/06/24 11/06/24 Previous Rx's ?Medication ?Instructions ?Recorded gabapentin 600 mg tablet 600 mg PO TID 30 days #90 tabs 10/12/24 methocarbamol 750 mg tablet 1,500 mg (2 x 750 mg) PO TID PRN 11/06/24 muscle pain #30 tabs naproxen 500 mg tablet 500 mg PO Q12H PRN pain #10 tabs 11/06/24 prednisone 20 mg tablet 40 mg (2 x 20 mg) PO DAILY 5 days 11/06/24 #20 tabs Allergies Allergy/AdvReac Type Severity Reaction Status Date / Time naltrexone Allergy ALGY-Difficulty Verified 11/04/24 13:30 Breathing Review of Systems Const: Denies: fever(s), chills, body aches or change in appetite ENMT: Denies: throat pain or dental pain Card: Denies: chest pain Resp: Denies: dyspnea GI: Denies: abdominal pain, nausea, vomiting or diarrhea Musc: Denies: neck pain or back pain Skin/Breast: Denies: rash Neuro: Denies: headache(s) Psych: Denies: suicidal ideation PFS ED PFSH: Medical History Depression History of attempted suicide Psychiatric care Opiate abuse, episodic Methamphetamine dependence, episodic Pyuria Morbid obesity with BMI of 50.0-59.9, adult Fatty infiltration of liver Abnormal uterine bleeding (AUB) Urinary incontinence Asthma Benign essential HTN Uncontrolled type 2 diabetes mellitus, without long-term current use of insulin Hypothyroidism DDD (degenerative disc disease) Intervertebral disc disorders with radiculopathy, lumbar region Bilateral primary osteoarthritis of knee Gender dysphoria Nicotine dependence, cigarettes, uncomplicated Major depressive disorder, recurrent severe without psychotic features Surgical History (Updated 11/06/24 @ 15:09 by OJNO Jamison) H/O: hysterectomy History of ureter stent S/P laparoscopic appendectomy (04/19/20) History of endometrial biopsy (04/13/20) benign endocervical epithelium Hx of foot surgery Family History Mother Diabetes Sister Cancer ovarian Other Dementia Heart disease Hypertension Psychiatric illness Denies family history of CAD (coronary artery disease) Clotting disorder Hyperlipidemia Chronic kidney disease (CKD) Anesthesia complication Bleeding disorder Lung disease Stroke Social History Smoking and tobacco/nicotine status: current every day tobacco/nicotine user cigarettes Packs smoked per day: 0.50 Alcohol intake: current Alcohol intake frequency: other Alcohol type: beer and hard liquor Substance/Drug Use: former Date of last use: 2017 Lives independently: Yes Household members: other Details: partner and her mom Marital status: Single Number of children: 0 Current occupational status: disabled Current gender identity: Male and Other Gender Identity Comment: Goes by Saul, considering formal transition Special hero needs: No Agree to transfusion: Yes Physical Exam Const: COMMON NORMALS: no acute distress, patient oriented x3 and healthy appearing OTHER: intoxicated HENMT: COMMON NORMALS: normocephalic and atraumatic HEAD & SCALP: normocephalic and atraumatic Eye: COMMON NORMALS: conjunctivae normal CONJUNCTIVA: Yes conjunctivae normal Neck/C-Spine: COMMON NORMALS: full ROM and supple Chest: COMMONS NORMALS: normal inspection of the chest Resp: COMMON NORMALS: normal respiratory effort Cardio: COMMON NORMALS: regular rate, regular rhythm and No murmurs present (Cardio) RATE: regular rate RHYTHM: regular rhythm GI: COMMON NORMALS: Normal to inspection, nondistended, normoactive bowel sounds present, Soft to palpation, non-tender and no masses PALPATION: Yes Soft to palpation Extremity: COMMON NORMALS: normal to inspection and full ROM Neuro: COMMON NORMALS: patient oriented x3, moves all extremities and no focal motor deficits Psych: COMMON NORMALS: mental status grossly normal, Normal thought process present and cooperative THOUGHT PROCESS: Normal thought process present Skin: COMMON NORMALS: no rashes or lesions noted and no wounds GENERAL SKIN EXAM: no rashes or lesions noted Course Vital Signs: Vital signs: Vital Signs Temperature 96.8 F L 11/06/24 23:44 Pulse Rate 102 H 11/06/24 23:44 Respiratory Rate 18 11/06/24 23:44 Pulse Oximetry 94 11/06/24 23:44 Oxygen Delivery Me thod Room Air 11/06/24 23:44 MDM - Alcohol Medical Decision Making Patient presents with alcohol intoxication she is able to ambulate answer questions appropriately did set her up with a cab ride back to her house. Medical Records I reviewed the patient's medical records. No radiology studies performed this visit Discharge Plan Discharge Patient Disposition: Home Clinical Impression: Alcoholic intoxication Condition: Stable Prescriptions: No Action gabapentin 600 mg tablet 600 mg PO TID 30 Days Qty: 90 0RF acetaminophen 500 mg Tablet 500 mg PO Q6H PRN (Reason: Pain) prednisone 20 mg tablet 40 mg PO DAILY 5 Days Qty: 20 0RF methocarbamol 750 mg tablet 1,500 mg PO TID PRN (Reason: muscle pain) Qty: 30 0RF Rx Instructions: No alcohol use or driving with this medication. 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
== END 2024-11-07 01:38 | disposition home or self-care (01) ==
PROVIDERS: Emergency Provider Emergency Medicine; PCP Orthopaedic Surgery
DX: F10.129 Alcohol abuse with intoxication, unspecified (principal); E11.9 Type 2 diabetes mellitus without complications; I10 Essential (primary) hypertension; F17.210 Nicotine dependence, cigarettes, uncomplicated
CPT/HCPCS: 99283

== ENCOUNTER 2024-11-18 06:30 | Outpatient (RCR) | payer MEDICARE, MEDICAID, SELFPAY | END 2024-12-18 23:59 | disposition home or self-care (01) | LOC: TPT 06:30 | PROVIDERS: PCP Family Medicine; Visit Provider Orthopaedic Surgery | DX: M54.50 Low back pain, unspecified (principal); G89.29 Other chronic pain | CPT/HCPCS: 97161 ==

== ENCOUNTER → 2024-11-19 09:15 | Outpatient (BNVA) | payer MEDICARE, MEDICAID, SELFPAY | PROVIDERS: PCP Family Medicine; Visit Provider Nurse Practitioner Family | DX: M54.42 Lumbago with sciatica, left side (principal); M54.41 Lumbago with sciatica, right side; G89.29 Other chronic pain; R03.0 Elevated blood-pressure reading, without diagnosis of hypertension | CPT/HCPCS: 99214 ==

== ENCOUNTER → 2024-11-26 09:13 | Outpatient (BNVA) | payer MEDICARE, MEDICAID, SELFPAY | PROVIDERS: PCP Family Medicine; Visit Provider Nurse Practitioner Family | DX: M79.18 Myalgia, other site (principal); M54.42 Lumbago with sciatica, left side; M54.41 Lumbago with sciatica, right side; G89.29 Other chronic pain; R03.0 Elevated blood-pressure reading, without diagnosis of hypertension | CPT/HCPCS: 20553; 99214; J1010; J3490 ==

== ENCOUNTER 2024-12-01 11:27 | Emergency (ER) | payer MEDICARE, MEDICAID, SELFPAY ==
[2024-12-01 11:29] VITALS: BP 148/95; PULSE 85; RESP 16; TEMP 36.4; O2SAT 96; BMI 43.4
--- NOTE | 2024-12-01 12:17 | W.ED.BACK ---
HPI - Back Pain/Injury General: Chief Complaint: Back Pain/Injury Stated Complaint: Chronic Back Pain Time Seen by Provider: 12/01/24 11:36 Source: patient and EMS Mode of arrival: EMS Limitations: no limitations History of Present Illness: 44-year-old female history of back pain states she has been having some increasing back pain does follow with pain management states the pain is in her lower back she rates it a 5 out of 10 currently denies any new injuries denies any bowel or bladder incontinence denies any numbness Associated symptoms: Deny abdominal pain, chills, fever(s), nausea or vomiting Related Data Home Medications ?Medication ?Instructions ?Recorded ?Confirmed acetaminophen 500 mg tablet 500 mg PO Q6H PRN Pain 11/06/24 11/26/24 Previous Rx's ?Medication ?Instructions ?Recorded naproxen 500 mg tablet 500 mg PO Q12H PRN pain #10 tabs 11/06/24 gabapentin 600 mg tablet 900 mg (1.5 x 600 mg) PO TID 30 11/19/24 days #120 tabs tizanidine 4 mg tablet 4 mg PO BID PRN muscle spasticity 11/19/24 #60 tabs Allergies Allergy/AdvReac Type Severity Reaction Status Date / Time naltrexone Allergy ALGY-Difficulty Verified 11/26/24 08:40 Breathing Review of Systems Const: Denies: fever(s), chills, body aches or change in appetite ENMT: Denies: throat pain or dental pain Card: Denies: chest pain Resp: Denies: dyspnea GI: Denies: abdominal pain, nausea, vomiting or diarrhea Musc: Reports: back pain; Denies: neck pain Skin/Breast: Denies: rash Neuro: Denies: headache(s) PFSH ED PFSH: Medical History Depression History of attempted suicide Psychiatric care Opiate abuse, episodic Methamphetamine dependence, episodic Pyuria Morbid obesity with BMI of 50.0-59.9, adult Fatty infiltration of liver Abnormal uterine bleeding (AUB) Urinary incontinence Asthma Benign essential HTN Uncontrolled type 2 diabetes mellitus, without long-term current use of insulin Hypothyroidism DDD (degenerative disc disease) Intervertebral disc disorders with radiculopathy, lumbar region Bilateral primary osteoarthritis of knee Gender dysphoria Nicotine dependence, cigarettes, uncomplicated Major depressive disorder, recurrent severe without psychotic features Surgical History H/O: hysterectomy History of ureter stent S/P laparoscopic appendectomy (04/19/20) History of endometrial biopsy (04/13/20) benign endocervical epithelium Hx of foot surgery Family History Mother Diabetes Sister Cancer ovarian Other Dementia Heart disease Hypertension Psychiatric illness Denies family history of CAD (coronary artery disease) Clotting disorder Hyperlipidemia Chronic kidney disease (CKD) Anesthesia complication Bleeding disorder Lung disease Stroke Social History Smoking and tobacco/nicotine status: current every day tobacco/nicotine user cigarettes Packs smoked per day: 0.50 Alcohol intake: current Alcohol intake frequency: other Alcohol type: beer and hard liquor Substance/Drug Use: former Date of last use: 2017 Lives independently: Yes Household members: other Details: partner and her mom Marital status: Single Number of children: 0 Current occupational status: disabled Current gender identity: Male and Other Gender Identity Comment: Goes by Saul, considering formal transition Special hero needs: No Agree to transfusion: Yes Physical Exam Const: COMMON NORMALS: no acute distress, patient oriented x3 and healthy appearing HENMT: COMMON NORMALS: normocephalic and atraumatic HEAD & SCALP: normocephalic and atraumatic Neck/C-Spine: COMMON NORMALS: full ROM and supple Chest: COMMONS NORMALS: normal inspection of the chest Resp: COMMON NORMALS: normal respiratory effort Cardio: COMMON NORMALS: regular rate RATE: regular rate Back/Pelvis: OTHER: Tenderness along low back no midline tenderness Extremity: COMMON NORMALS: normal to inspection and full ROM Neuro: COMMON NORMALS: patient oriented x3, moves all extremities and no focal motor deficits Psych: COMMON NORMALS: mental status grossly normal, Normal thought process present and cooperative THOUGHT PROCESS: Normal thought process present Skin: COMMON NORMALS: no rashes or lesions noted and no wounds GENERAL SKIN EXAM: no rashes or lesions noted Course Vital Signs: Vital signs: Vital Signs Temperature 97.5 F L 12/01/24 11:29 Pulse Rate 85 12/01/24 11:29 Respiratory Rate 16 12/01/24 11:29 Blood Pressure 148/95 12/01/24 11:29 Pulse Oximetry 96 05/14/25 11:29 Oxygen Delivery Me thod Room Air 12/01/24 11:29 MDM - Back Pain/Injury Medical Decision Making Patient presents with back pain chronic in nature she is well-appearing here she stable for discharge follow-up PCP return if worsening. No radiology studies performed this visit Discharge Plan Discharge Patient Disposition: Home Clinical Impression: Chronic back pain Condition: Stable Prescriptions: No Action gabapentin 600 mg tablet 900 mg PO TID 30 Days Qty: 120 0RF tizanidine 4 mg tablet 4 mg PO BID PRN (Reason: muscle spasticity) Qty: 60 0RF acetaminophen 500 mg Tablet 500 mg PO Q6H PRN (Reason: Pain) naproxen 500 mg tablet 500 mg PO Q12H PRN (Reason: pain) Qty: 10 0RF Discharge Orders: Discharge ED (Routine); Ordered 12/01/24 Ordered By: Nolan Rodriguez Referrals: Willard Ham MD [Primary Care Provider, Family Practice] - 4-7 days Discharge Diet: Advance as tolerated Discharge Activity: Resume usual activity Patient Instructions: Back Pain (ED) Print Language: Hungarian Coding 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
[2024-12-01] MEDS: morphine 4 mg/mL SDV 1 mL IM (12:38)
[2024-12-01] MEDS: dexamethasone 10 mg/mL INJ IM (12:38)
[2024-12-01 12:50] VITALS: BP 148/95; PULSE 81; O2SAT 97
== END 2024-12-01 12:56 | disposition home or self-care (01) ==
PROVIDERS: Emergency Provider Emergency Medicine; PCP Family Medicine
DX: M54.9 Dorsalgia, unspecified (principal); E11.9 Type 2 diabetes mellitus without complications; I10 Essential (primary) hypertension; F17.210 Nicotine dependence, cigarettes, uncomplicated
CPT/HCPCS: 96372; 99284; J1100; J2270

== ENCOUNTER → 2024-12-09 11:22 | Outpatient (BNVA) | payer MEDICARE, MEDICAID, SELFPAY | PROVIDERS: PCP Family Medicine; Visit Provider Nurse Practitioner Family | DX: M54.16 Radiculopathy, lumbar region (principal); M54.42 Lumbago with sciatica, left side; M54.41 Lumbago with sciatica, right side; G89.29 Other chronic pain; R03.0 Elevated blood-pressure reading, without diagnosis of hypertension | CPT/HCPCS: 99213 ==

== ENCOUNTER → 2024-12-16 07:59 | Outpatient (BNVA) | payer MEDICARE, MEDICAID, OTHER, SELFPAY | PROVIDERS: PCP Family Medicine; Visit Provider Orthopaedic Surgery | DX: M54.9 Dorsalgia, unspecified (principal); M51.16 Intervertebral disc disorders with radiculopathy, lumbar region | CPT/HCPCS: 99214 ==

== ENCOUNTER → 2024-12-24 10:32 | Outpatient (BNVA) | payer MEDICARE, MEDICAID, SELFPAY | PROVIDERS: PCP Family Medicine; Visit Provider Family Medicine | DX: Z01.818 Encounter for other preprocedural examination (principal) | CPT/HCPCS: 80053; 85007; 85027 ==

== ENCOUNTER 2025-01-05 06:23 | Day surgery (SDC) | payer MEDICARE, MEDICAID, SELFPAY ==
[2025-01-05] VITALS (14 sets, daily range): BP systolic 121–178; BP diastolic 82–125; PULSE 74–92; RESP 14–20; TEMP 36.1–36.5; O2SAT 92–97; BMI 52.2
--- NOTE | 2025-01-05 06:19 | ANES.PREANE2 ---
Pre-Anesthetic Assessment Height/Weight: Height 5 ft 10 in Preop Diagnosis: Spinal stenosis Operation Date: 01/05/25 08:00 Proposed Procedures p Lumbar Spine Decompression Lumbar Decompression(Not Applicable) - Emery Smith, DO Was Beta Napoleon taken within 24 hours: N/A Was Clonidine taken within 24 hours: N/A Social Tobacco and No alcohol Exam alert, oriented x 3 and regular rate & rhythm Airway Submandibular: within normal limits Cervical ROM: within normal limits Mallampati: Class II Comments: Comments: Edentulous Anesthetic Plan ASA status: 3 Anesthesia: General Other: No prior issues with anesthesia NPO since yesterday evening History of asthma, patient is a current smoker. Nicotine and marijuana Prior methamphetamine abuse history in remission Patient takes Suboxone daily last taken yesterday Labs reviewed from 12/24/2024 and acceptable for procedure today Prior EKG showing sinus rhythm Plan for general anesthesia Medications/Allergies Home Medications ?Medication ?Instructions ?Recorded ?Confirmed ?Last Taken ?Type acetaminophen 500 mg tablet 500 mg PO Q6H PRN Pain 11/06/24 01/05/25 Unknown History naproxen 500 mg tablet 500 mg PO Q12H PRN pain #10 tabs 11/06/24 01/04/25 Unknown Rx tizanidine 4 mg tablet 4 mg PO BID PRN muscle spasticity 11/19/24 01/04/25 Unknown Rx #60 tabs gabapentin 600 mg tablet 900 mg (1.5 x 600 mg) PO TID 30 12/09/24 01/04/25 01/04/25 Rx days #120 tabs buprenorphine 8 mg-naloxone 2 mg 1 film sublingual DAILY #30 ea 12/24/24 01/04/25 01/04/25 Rx sublingual film fluoxetine 20 mg capsule (Prozac) 20 mg PO DAILY #30 caps 12/24/24 01/04/25 01/04/25 Rx trazodone 100 mg tablet 200 mg (2 x 100 mg) PO .HS PRN 12/24/24 01/04/25 Unknown Rx insomnia #60 tabs Allergies Allergy/AdvReac Type Severity Reaction Status Date / Time naltrexone Allergy ALGY-Difficulty Verified 01/04/25 14:43 Breathing [facility] Anesthesia Medical History Depression History of attempted suicide Psychiatric care Opiate abuse, episodic Methamphetamine dependence, episodic Pyuria Morbid obesity with BMI of 50.0-59.9, adult Fatty infiltration of liver Abnormal uterine bleeding (AUB) Urinary incontinence Asthma Benign essential HTN Uncontrolled type 2 diabetes mellitus, without long-term current use of insulin Hypothyroidism DDD (degenerative disc disease) Intervertebral disc disorders with radiculopathy, lumbar region Bilateral primary osteoarthritis of knee Gender dysphoria Nicotine dependence, cigarettes, uncomplicated Major depressive disorder, recurrent severe without psychotic features Surgical History H/O: hysterectomy History of ureter stent S/P laparoscopic appendectomy (04/19/20) History of endometrial biopsy (04/13/20) benign endocervical epithelium Hx of foot surgery Family History Mother Diabetes Sister Cancer ovarian Other Dementia Heart disease Hypertension Psychiatric illness Denies family history of CAD (coronary artery disease) Clotting disorder Hyperlipidemia Chronic kidney disease (CKD) Anesthesia complication Bleeding disorder Lung disease Stroke Social History Smoking and tobacco/nicotine status: unknown if used tobacco/nicotine Alcohol intake: current Alcohol intake frequency: other Alcohol type: beer and hard liquor Substance/Drug Use: former Date of last use: 2017 Lives independently: Yes Household members: other Details: partner and her mom Marital status: Single Number of children: 0 Current occupational status: disabled Current gender identity: Male and Other Gender Identity Comment: Goes by Saul, considering formal transition Special hero needs: No Agree to transfusion: Yes
[2025-01-05] MEDS: sodium chloride 0.9% 1,000 ML 30 ML IV (06:52)
--- NOTE | 2025-01-05 06:55 | W.PM.OPSUD ---
Surgery/Procedure H&P Update DATE OF PROCEDURE: January 05, 2025 DATE H&P PERFORMED: 12/16/24 H&P UPDATE INFORMATION: I have reviewed H&P completed within last 30 days, I have examined patient prior to procedure and No changes to prior documentation PREOP DIAGNOSIS: Lumbar stenosis with neurogenic claudication PLANNED PROCEDURE: Operation Date: 01/05/25 08:00 Proposed Procedures p Lumbar Spine Decompression Lumbar Decompression(Not Applicable) - Emery Smith DO
--- NOTE | 2025-01-05 07:44 | SUR.PREOP ---
Patient stated IV was stinging and was crying in pain , after several attempts to reposition IV, with no relief, IV was pulled and a new was started with ultrasound by Dr Gaston. Patient states this IV is fine and doesn't hurt.
[2025-01-05] MEDS: ceFAZolin 3,000 MG in sodium chloride 0.9% (plus) 100 ML 200 MG IV (08:15)
[2025-01-05] MEDS: lidocaine-epi 1% 20 mL INJ INJECTION (08:50)
--- NOTE | 2025-01-05 09:25 | PM.OP ---
Operative Report Date of procedure: January 05, 2025 Pre-op diagnosis: Lumbar stenosis with neurogenic claudication Post-op diagnosis: same Procedure done: L4-5 laminectomy with partial facetectomy Surgeon: Emery Smith DO Estimated blood loss (mL): 5 Procedure: L4-5 laminectomy with partial facetectomy Patient is brought to the operative suite. After undergoing anesthesia they are placed in the prone position. All areas of impingement are well padded. Patient is then prepped and draped in the normal sterile fashion. A skin incision is made over the L4/5 level. This is confirmed under c-arm guidance. A series of dilators are passed and the tubular retractor is docked on the L4 lamina. A bovie is used to clear the soft tissue off the lamina and the L 4/5 facet joint. A high speed marianna is then used to perform the laminectomy and take down the medial aspect of the L 4/5 facet joint. A kerrison rongeure was then used to take down the remaining lamina and smooth the edge of the laminectomy up to the point where the ligamentum flavum attaches. Attention was then brought to the medial aspect of the facet joint. The remaining medial aspect of the superior and inferior aspect of the facet joint were taken down with the kerrison from the pedicle of L4 to L 5. The facet joint had significant hypertrophy. Attention was then brought to the Ligamentum Flavum. The ligament was taken down from the lamina of L4 to L5 and out medially to the remaining facet joint. The ligament was thick. The dura was then exposed. The dura was in good repair. The L4 nerve was then traced with a curette out the L4/5 foramen and found to be adequately decompressed. The L5 nerve was traced with a curette around the L5 pedicle. The lateral recess was opened with a kerrison helping to further decompress the L5 nerve. Wound is then irrigated copiously with saline and surgiflo is used to stop any bleeding. The tubular retractor is removed and the wound is closed with vicryl and monocryl suture. Glue is then used to protect the wound. A sterile dressing is then placed. Patient was then placed in the supine position and transferred to the PACU in stable condition.
[2025-01-05] MEDS: fentaNYL 50 mcg/mL INJ 2mL IVP ×2 (09:46→09:54)
[2025-01-05] MEDS: HYDROcodone-acetaminophen 5-325 mg Tablet 1 TAB PO (11:09)
--- NOTE | 2025-01-05 11:24 | ANE.PACU2 ---
Inpatient post-anesthesia follow up: Airway intact: Yes Vital signs: Temperature 97.1 F Pulse Rate 80 Respiratory Rate 17 Blood Pressure 176/119 Pulse Oximetry 97 Oxygen Delivery Me thod Room Air Oxygen Flow Rate Fraction of Inspir ed Oxygen Hydration adequate: Yes Nausea and vomiting: No Pain level: 1 Mental status: Baseline
--- NOTE | 2025-01-05 14:46 | XR_ITS ---
WS: [id number] Lumbar spine, C-arm fluoroscopy views, 01/05/2025 Clinical Data: or pic, decompression Comparison: Lumbar spine, 10/12/2024 Findings: Dr. Smith performed a lumbar decompression. XR/XR lumbar spine 1V [id number] Impression: Lumbar decompression
== END 2025-01-05 11:24 | disposition home or self-care (01) ==
PROVIDERS: PCP Family Medicine; Visit Provider Orthopaedic Surgery
PROC: (CPT 63005; principal; 2025-01-05 08:00)
DX: M48.062 Spinal stenosis, lumbar region with neurogenic claudication (principal); F17.210 Nicotine dependence, cigarettes, uncomplicated; F12.90 Cannabis use, unspecified, uncomplicated; F15.11 Other stimulant abuse, in remission; F32.A Depression, unspecified; E66.01 Morbid (severe) obesity due to excess calories; Z68.43 Body mass index [BMI] 50.0-59.9, adult; J45.909 Unspecified asthma, uncomplicated; I10 Essential (primary) hypertension
CPT/HCPCS: 63047; 72020; 76000; J0131; J0690; J1100; J1885; J2250; J2405; J2704; J3010; J3475; J3490; J7030; J9999

== ENCOUNTER 2025-01-07 04:52 | Emergency (ER) | payer MEDICARE, MEDICAID, SELFPAY ==
[2025-01-07] VITALS (10 sets, daily range): BP systolic 122–162; BP diastolic 72–96; PULSE 91–110; RESP 16–20; TEMP 36.6; O2SAT 94–99; BMI 52.2
--- NOTE | 2025-01-07 05:08 | ED_ITS ---
Documented by User: Smooth Campa MD 01/07/25 05:12 HPI - Extremity Problem 2 General: Chief complaint: Extremity Problem,Nontraumatic Stated complaint: Back Pain-post Surg Time Seen by Provider: 01/07/25 04:58 History of Present Illness: Patient comes in with right buttock/hip pain. States she had surgery on her back 2 days ago. States she did well the the same day after the surgery. States that she then woke up yesterday morning with severe pain in her right lower hip/buttock that she states has been getting worse. States it feels like a charley horse but significantly worse. Denies any perianal numbness, urinary retention, or leg muscle weakness. Denies fever. On physical exam she has a surgical dressing on her wound that has some old blood saturating the dressing. She has pain in her right upper buttock with straight leg raise on the right. After lifting her leg and setting it back down she began to complain of severe pain again which she describes as cramping/spasming. Will treat her pain with 5 mg of p.o. Valium, check labs, give her 2 mg of IV morphine, give IV fluids, and reassess. Related Data Home Medications ?Medication ?Instructions ?Recorded ?Confirmed acetaminophen 500 mg tablet 500 mg PO Q6H PRN Pain 01/07/25 Previous Rx's ?Medication ?Instructions ?Recorded naproxen 500 mg tablet 500 mg PO Q12H PRN pain #10 tabs 11/06/24 Held on 01/05/25. Instructions: Resume on 01/07/25. tizanidine 4 mg tablet 4 mg PO BID PRN muscle spast icity 11/19/24 #60 tabs gabapentin 600 mg tablet 900 mg (1.5 x 600 mg) PO TID 30 12/09/24 days #120 tabs buprenorphine 8 mg-naloxone 2 mg 1 film sublingual NICK LY #30 ea 12/24/24 sublingual film Held on 01/05/25. Instructions: Resume on 01/21/25. fluoxetine 20 mg capsule (Prozac) 20 mg PO DAILY #30 c aps 12/24/24 trazodone 100 mg tablet 200 mg (2 x 100 mg) PO .HS P RN 12/24/24 insomnia #60 tabs hydrocodone 5 mg-acetaminophen 325 1 - 2 tab PO .Q4-6H #40 tabs 01/05/25 mg tablet hydrocodone 10 mg-acetaminophen 1 - 2 tab PO Q4H PRN p ain 7 days 01/07/25 325 mg tablet #42 tabs prednisone 20 mg tablet 20 mg PO TID #15 tabs tizanidine 4 mg capsule 4 mg PO Q6H PRN muscle spast icity 01/07/25 7 days #28 caps Allergies Allergy/AdvReac Type Severity Reaction Status Date / Time naltrexone Allergy ALGY-Difficulty Verified 01/04/25 14:43 Breathing Review of Systems 2 Musc: Reports: other (Right buttock/hip pain) PFSH ED 2 PFSH: Medical History Depression History of attempted suicide Psychiatric care Opiate abuse, episodic Methamphetamine dependence, episodic Pyuria Morbid obesity with BMI of 50.0-59.9, adult Fatty infiltration of liver Abnormal uterine bleeding (AUB) Urinary incontinence Asthma Benign essential HTN Uncontrolled type 2 diabetes mellitus, without long-term current use of insulin Hypothyroidism DDD (degenerative disc disease) Intervertebral disc disorders with radiculopathy, lumbar region Bilateral primary osteoarthritis of knee Gender dysphoria Nicotine dependence, cigarettes, uncomplicated Major depressive disorder, recurrent severe without psychotic features Surgical History H/O: hysterectomy History of ureter stent S/P laparoscopic appendectomy (04/19/20) History of endometrial biopsy (04/13/20) benign endocervical epithelium Hx of foot surgery Family History Mother Diabetes Sister Cancer ovarian Other Dementia Heart disease Hypertension Psychiatric illness Denies family history of CAD (coronary artery disease) Clotting disorder Hyperlipidemia Chronic kidney disease (CKD) Anesthesia complication Bleeding disorder Lung disease Stroke Social History Smoking and tobacco/nicotine status: unknown if used tobacco/nicotine Alcohol intake: current Alcohol intake frequency: other Alcohol type: beer and hard liquor Substance/Drug Use: former Date of last use: 2017 Lives independently: Yes Household members: other Details: partner and her mom Marital status: Single Number of children: 0 Current occupational status: disabled Current gender identity: Male and Other Gender Identity Comment: Goes by Saul, considering formal transition Special hero needs: No Agree to transfusion: Yes Physical Exam 2 HENMT: COMMON NORMALS: normocephalic and atraumatic HEAD & SCALP: n ormocephalic and atraumatic Neck/C-Spine: COMMON NORMALS: full ROM and supple Resp: COMMON NORMALS: normal respiratory effort, No retractions and No use of accessory muscles GI: COMMON NORMALS: Normal to inspection, nondistended, normoactive bowel sounds present, Soft to palpation and non-tender PALPATION: Yes Soft to palpation Back/Pelvis: OTHER: Pain in the right buttock with straight leg raise test on the right, strength is 5 out of 5 in bilateral lower extremities Course 2 Vital Signs: Vital signs: Vital Signs Temperature 97.8 F 01/07/25 05:01 Pulse Rate 105 H 01/07/25 12:28 Respiratory Rate 16 01/07/25 12:28 Blood Pressure 162/84 01/07/25 12:28 Pulse Oximetry 96 01/07/25 12:28 Oxygen Delivery Me thod Room Air 01/07/25 06:31 MDM - Extremity (Nontraumatic) Lab Data 01/07/25 05:42 01/07/25 05:42 Laboratory Results WBC 11.19 10^3/uL (3.29-11.43) 01/07/25 05:42 RBC 4.39 10^6/uL (3.85-5.65) 01/07/25 05:42 Hgb 12.60 g/dL (11.27-16.99) 01/07/25 05:42 Hct 38.5 % (36-47) 01/07/25 05:42 MCV 87.7 fl (85-98) 01/07/25 05:42 MCH 28.7 pg (27-33) 01/07/25 05:42 MCHC 32.7 g/dL (30-55) 01/07/25 05:42 RDW 14.6 % (12.1-15.1) 01/07/25 05:42 Plt Count 231 10^3/cmm (157-399) 01/07/25 05:42 MPV 9.9 fL (7.4-10.4) 01/07/25 05:42 Neut % (Auto) 80.3 % 01/07/25 05:42 Lymph % (Auto) 11.3 % 01/07/25 05:42 Mcclain % (Auto) 6.6 % 01/07/25 05:42 Eos % (Auto) 1.1 % 01/07/25 05:42 Baso % (Auto) 0.2 % 01/07/25 05:42 Neut # (Auto) 8.99 10^3/uL (1.8-7.7) H 01/07/25 05:42 Lymph # (Auto) 1.3 10^3/uL (0.8-4.8) 01/07/25 05:42 Mcclain # (Auto) 0.7 10^3/uL (0.2-0.9) 01/07/25 05:42 Eos # (Auto) 0.1 10^3/uL (0.0-0.8) 01/07/25 05:42 Baso # (Auto) 0.0 10^3/uL (0.0-0.1) 01/07/25 05:42 Nucleated RBC % (auto) 0 % 01/07/25 05:42 Nucleated RBCs # 0.0 /100WBC 01/07/25 05:42 Sodium 138 mmol/L (136-145) 01/07/25 05:42 Potassium 3.9 mmol/L (3.5-5.1) 01/07/25 05:42 Chloride 102 mmol/L (98-107) 01/07/25 05:42 Carbon Dioxide 28 mmol/L (22-29) 01/07/25 05:42 Anion Gap 11.9 (5-19) 01/07/25 05:42 BUN 12 mg/dL (6-20) 01/07/25 05:42 Creatinine 0.7 mg/dL (0.5-0.9) 01/07/25 05:42 GFR Calculation 91.3 mL/min (90-130) 01/07/25 05:42 Glucose 202 mg/dL (65-115) H 01/07/25 05:42 Calculated Osmolality 292 mOsm/kg (285-295) 01/07/25 05:42 Calcium 8.5 mg/dL (8.5-10.5) 01/07/25 05:42 Discharge Plan Discharge Patient Disposition: Home Clinical Impression: Radicular pain of left lower extremity, Borderline personality disorder Condition: Stable Prescriptions: New prednisone 20 mg tablet 20 mg PO TID Qty: 15 0RF Rx Instructions: 1 p.o. 3 times daily x3 days, 1 p.o. twice daily x2 days, 1 p.o. daily x2 days hydrocodone-acetaminophen 10-325 mg tablet 1 - 2 tab PO Q4H PRN (Reason: pain) 7 Days Qty: 42 0RF tizanidine 4 mg capsule 4 mg PO Q6H PRN (Reason: muscle spasticity) 7 Days Qty: 28 0RF Rx Instructions: do not exceed 3 doses per 24 hrs No Action gabapentin 600 mg tablet 900 mg PO TID 30 Days Qty: 120 6RF buprenorphine-naloxone 8-2 mg film 1 film sublingual DAILY Qty: 30 0RF fluoxetine [Prozac] 20 mg capsule 20 mg PO DAILY Qty: 30 2RF trazodone 100 mg tablet 200 mg PO .HS PRN (Reason: insomnia) Qty: 60 2RF tizanidine 4 mg tablet 4 mg PO BID PRN (Reason: muscle spasticity) Qty: 60 0RF acetaminophen 500 mg Tablet 500 mg PO Q6H PRN (Reason: Pain) naproxen 500 mg tablet 500 mg PO Q12H PRN (Reason: pain) Qty: 10 0RF hydrocodone-acetaminophen 5-325 mg tablet 1 - 2 tab PO .Q4-6H Qty: 40 0RF Discharge Orders: Discharge ED (Routine); Ordered 01/07/25 Ordered By: Azar Valle Referrals: Willard Ham MD [Primary Care Provider, Family Practice] Discharge Diet: Usual diet Discharge Activity: Limit activity as instructed Patient Instructions: Opioid Safety, Pain Management Activity Restrictions/Additional Instructions: Thank you for choosing [facility] for your healthcare needs today. It is very important that you follow up as instructed or that you return to the Emergency Department should you have concerns or if your condition changes or worsens in any way. You are seen in the emergency room with complaints of back pain and left leg radicular pain. Dr. Smith came and seen you as well gave further recommendations. Follow his recommendations and activity limitations as per your discharge instructions from your back surgery. Your laboratory test was unremarkable you are given multiple doses of pain and steroid medications while in the emergency room. Will discharge you home on a steroid taper. Dr. Smith is planning to send in muscle relaxers and pain medications. F/U ortho clinic thursday 01/11 at 1 pm Print Language: Macedonian Sign Out Sign Out Data: Patient Sign Out occurred on 01/07/25 at 06:08. Patient's care was discussed, and care was transferred from Smooth Campa MD to Azar Valle DO. Coding Level of Care Code ED Calender Roll Press Operator for Chg Fwd Documented by User: Azar Valle DO 01/07/25 13:20 HPI - Extremity Problem 2 General: Chief complaint: Extremity Problem,Nontraumatic Stated complaint: Back Pain-post Surg Time Seen by Provider: 01/07/25 04:58 Related Data Home Medications ?Medication ?Instructions ?Recorded ?Confirmed acetaminophen 500 mg tablet 500 mg PO Q6H PRN Pain 01/07/25 Previous Rx's ?Medication ?Instructions ?Recorded naproxen 500 mg tablet 500 mg PO Q12H PRN pain #10 tabs 11/06/24 Held on 01/05/25. Instructions: Resume on 01/07/25. tizanidine 4 mg tablet 4 mg PO BID PRN muscle spast icity 11/19/24 #60 tabs gabapentin 600 mg tablet 900 mg (1.5 x 600 mg) PO TID 30 12/09/24 days #120 tabs buprenorphine 8 mg-naloxone 2 mg 1 film sublingual NICK LY #30 ea 12/24/24 sublingual film Held on 01/05/25. Instructions: Resume on 01/21/25. fluoxetine 20 mg capsule (Prozac) 20 mg PO DAILY #30 c aps 12/24/24 trazodone 100 mg tablet 200 mg (2 x 100 mg) PO .HS P RN 12/24/24 insomnia #60 tabs hydrocodone 5 mg-acetaminophen 325 1 - 2 tab PO .Q4-6H #40 tabs 01/05/25 mg tablet hydrocodone 10 mg-acetaminophen 1 - 2 tab PO Q4H PRN p ain 7 days 01/07/25 325 mg tablet #42 tabs prednisone 20 mg tablet 20 mg PO TID #15 tabs tizanidine 4 mg capsule 4 mg PO Q6H PRN muscle spast icity 01/07/25 7 days #28 caps Allergies Allergy/AdvReac Type Severity Reaction Status Date / Time naltrexone Allergy ALGY-Difficulty Verified 01/04/25 14:43 Breathing PFSH ED 2 PFSH: Medical History Depression History of attempted suicide Psychiatric care Opiate abuse, episodic Methamphetamine dependence, episodic Pyuria Morbid obesity with BMI of 50.0-59.9, adult Fatty infiltration of liver Abnormal uterine bleeding (AUB) Urinary incontinence Asthma Benign essential HTN Uncontrolled type 2 diabetes mellitus, without long-term current use of insulin Hypothyroidism DDD (degenerative disc disease) Intervertebral disc disorders with radiculopathy, lumbar region Bilateral primary osteoarthritis of knee Gender dysphoria Nicotine dependence, cigarettes, uncomplicated Major depressive disorder, recurrent severe without psychotic features Surgical History H/O: hysterectomy History of ureter stent S/P laparoscopic appendectomy (04/19/20) History of endometrial biopsy (04/13/20) benign endocervical epithelium Hx of foot surgery Family History Mother Diabetes Sister Cancer ovarian Other Dementia Heart disease Hypertension Psychiatric illness Denies family history of CAD (coronary artery disease) Clotting disorder Hyperlipidemia Chronic kidney disease (CKD) Anesthesia complication Bleeding disorder Lung disease Stroke Social History Smoking and tobacco/nicotine status: unknown if used tobacco/nicotine Alcohol intake: current Alcohol intake frequency: other Alcohol type: beer and hard liquor Substance/Drug Use: former Date of last use: 2017 Lives independently: Yes Household members: other Details: partner and her mom Marital status: Single Number of children: 0 Current occupational status: disabled Current gender identity: Male and Other Gender Identity Comment: Goes by Saul, considering formal transition Special hero needs: No Agree to transfusion: Yes Course 2 Vital Signs: Vital signs: Vital Signs Temperature 97.8 F 01/07/25 05:01 Pulse Rate 105 H 01/07/25 12:28 Respiratory Rate 16 01/07/25 12:28 Blood Pressure 162/84 01/07/25 12:28 Pulse Oximetry 96 01/07/25 12:28 Oxygen Delivery Me thod Room Air 01/07/25 06:31 MDM - Extremity (Nontraumatic) Medical Decision Making Patient aggressive and using proliferative profanity with staff and myself throughout her stay. I discussed her case with Dr. Smiht. He recommended discharge home with steroid taper muscle relaxers. Patient became angry screaming and yelling and asked that she was being discharged. Contact Dr. Smith again asked Dr. Smith to come and see the patient. He described into case the times of this to take some time to arrange he eventually did come and see the patient after talking with her he recommends discharge home he will send in tizanidine and higher dose of pain medication to he asked that we send in a steroid follow-up with her in the office as per his instructions Medical Records I reviewed the patient's medical records. Lab Data I reviewed the patient's lab results. 01/07/25 05:42 01/07/25 05:42 Laboratory Results WBC 11.19 10^3/uL (3.29-11.43) 01/07/25 05:42 RBC 4.39 10^6/uL (3.85-5.65) 01/07/25 05:42 Hgb 12.60 g/dL (11.27-16.99) 01/07/25 05:42 Hct 38.5 % (36-47) 01/07/25 05:42 MCV 87.7 fl (85-98) 01/07/25 05:42 MCH 28.7 pg (27-33) 01/07/25 05:42 MCHC 32.7 g/dL (30-55) 01/07/25 05:42 RDW 14.6 % (12.1-15.1) 01/07/25 05:42 Plt Count 231 10^3/cmm (157-399) 01/07/25 05:42 MPV 9.9 fL (7.4-10.4) 01/07/25 05:42 Neut % (Auto) 80.3 % 01/07/25 05:42 Lymph % (Auto) 11.3 % 01/07/25 05:42 Mcclain % (Auto) 6.6 % 01/07/25 05:42 Eos % (Auto) 1.1 % 01/07/25 05:42 Baso % (Auto) 0.2 % 01/07/25 05:42 Neut # (Auto) 8.99 10^3/uL (1.8-7.7) H 01/07/25 05:42 Lymph # (Auto) 1.3 10^3/uL (0.8-4.8) 01/07/25 05:42 Mcclain # (Auto) 0.7 10^3/uL (0.2-0.9) 01/07/25 05:42 Eos # (Auto) 0.1 10^3/uL (0.0-0.8) 01/07/25 05:42 Baso # (Auto) 0.0 10^3/uL (0.0-0.1) 01/07/25 05:42 Nucleated RBC % (auto) 0 % 01/07/25 05:42 Nucleated RBCs # 0.0 /100WBC 01/07/25 05:42 Sodium 138 mmol/L (136-145) 01/07/25 05:42 Potassium 3.9 mmol/L (3.5-5.1) 01/07/25 05:42 Chloride 102 mmol/L (98-107) 01/07/25 05:42 Carbon Dioxide 28 mmol/L (22-29) 01/07/25 05:42 Anion Gap 11.9 (5-19) 01/07/25 05:42 BUN 12 mg/dL (6-20) 01/07/25 05:42 Creatinine 0.7 mg/dL (0.5-0.9) 01/07/25 05:42 GFR Calculation 91.3 mL/min (90-130) 01/07/25 05:42 Glucose 202 mg/dL (65-115) H 01/07/25 05:42 Calculated Osmolality 292 mOsm/kg (285-295) 01/07/25 05:42 Calcium 8.5 mg/dL (8.5-10.5) 01/07/25 05:42 All radiology interpretation(s) finalized by discharge Discharge Plan Discharge Patient Disposition: Home Clinical Impression: Radicular pain of left lower extremity, Borderline personality disorder Condition: Stable Prescriptions: New prednisone 20 mg tablet 20 mg PO TID Qty: 15 0RF Rx Instructions: 1 p.o. 3 times daily x3 days, 1 p.o. twice daily x2 days, 1 p.o. daily x2 days hydrocodone-acetaminophen 10-325 mg tablet 1 - 2 tab PO Q4H PRN (Reason: pain) 7 Days Qty: 42 0RF tizanidine 4 mg capsule 4 mg PO Q6H PRN (Reason: muscle spasticity) 7 Days Qty: 28 0RF Rx Instructions: do not exceed 3 doses per 24 hrs No Action gabapentin 600 mg tablet 900 mg PO TID 30 Days Qty: 120 6RF buprenorphine-naloxone 8-2 mg film 1 film sublingual DAILY Qty: 30 0RF fluoxetine [Prozac] 20 mg capsule 20 mg PO DAILY Qty: 30 2RF trazodone 100 mg tablet 200 mg PO .HS PRN (Reason: insomnia) Qty: 60 2RF tizanidine 4 mg tablet 4 mg PO BID PRN (Reason: muscle spasticity) Qty: 60 0RF acetaminophen 500 mg Tablet 500 mg PO Q6H PRN (Reason: Pain) naproxen 500 mg tablet 500 mg PO Q12H PRN (Reason: pain) Qty: 10 0RF hydrocodone-acetaminophen 5-325 mg tablet 1 - 2 tab PO .Q4-6H Qty: 40 0RF Discharge Orders: Discharge ED (Routine); Ordered 01/07/25 Ordered By: Azar Valle Referrals: Willard Ham MD [Primary Care Provider, Family Practice] Discharge Diet: Usual diet Discharge Activity: Limit activity as instructed Patient Instructions: Opioid Safety, Pain Management Activity Restrictions/Additional Instructions: Thank you for choosing [facility] for your healthcare needs today. It is very important that you follow up as instructed or that you return to the Emergency Department should you have concerns or if your condition changes or worsens in any way. You are seen in the emergency room with complaints of back pain and left leg radicular pain. Dr. Smith came and seen you as well gave further recommendations. Follow his recommendations and activity limitations as per your discharge instructions from your back surgery. Your laboratory test was unremarkable you are given multiple doses of pain and steroid medications while in the emergency room. Will discharge you home on a steroid taper. Dr. Smith is planning to send in muscle relaxers and pain medications. F/U ortho clinic thursday 01/11 at 1 pm Print Language: Macedonian Sign Out Sign Out Data: Patient Sign Out occurred on 01/07/25 at 06:08. Patient's care was discussed, and care was transferred from Smooth Campa MD to Azar Valle DO. Coding Level of Care Code ED Calender Roll Press Operator for Milagro Lao
[2025-01-07] MEDS: morphine 4 mg/mL SDV 1 mL 2 MG IVP (05:33)
[2025-01-07] MEDS: sodium chloride 0.9% 500 ML IV (05:34)
[2025-01-07] MEDS: diazePAM 5 mg Tablet PO (05:34)
[2025-01-07] MEDS: predniSONE 20 mg Tablet 60 MG PO (05:34)
[2025-01-07 06:00] LABS: Basophils % 0.2 %; Eosinophils # 0.1 10^3/uL (0.0-0.8); Eosinophils % 1.1 %; Hematocrit 38.5 % (36-47); Lymphocytes # 1.3 10^3/uL (0.8-4.8); Lymphocytes % 11.3 %; Mean Corpuscular HGB Conc 32.7 g/dL (30-55); Mean Corpuscular Hemoglobin 28.7 pg (27-33); Mean Corpuscular Volume 87.7 fl (85-98); Mean Platelet Volume 9.9 fL (7.4-10.4); Monocytes # 0.7 10^3/uL (0.2-0.9); Monocytes % 6.6 %; Neutrophils # 8.99 10^3/uL (1.8-7.7); Neutrophils % 80.3 %; Nucleated Red Blood Cells % 0 %; Platelet Count 231 10^3/cmm (157-399); Red Blood Count 4.39 10^6/uL (3.85-5.65); Red Cell Distribution Width 14.6 % (12.1-15.1); White Blood Count 11.19 10^3/uL (3.29-11.43)
[2025-01-07 06:10] LABS: Anion Gap 11.9 (5-19); Blood Urea Nitrogen 12 mg/dL (6-20); Calcium 8.5 mg/dL (8.5-10.5); Carbon Dioxide 28 mmol/L (22-29); Chloride 102 mmol/L (98-107); Creatinine Clr Calc Pharmacy 180.7991; Glomerular Filtration Rate 91.3 mL/min (90-130); Glucose 202 mg/dL (65-115); Osmolality Calculated 292 mOsm/kg (285-295); Potassium 3.9 mmol/L (3.5-5.1); Sodium 138 mmol/L (136-145)
[2025-01-07] MEDS: morphine 4 mg/mL SDV 1 mL IVP ×2 (06:28→08:41)
--- NOTE | 2025-01-07 07:24 | PC.NURSE ---
PATIENT YELLING FROM ROOM ABOUT PAIN, NURSE STATES THAT THE PROVIDER HAS BEEN MADE AWARE THAT SHE IS IN PAIN AND I WILL SEE IF HE WILL ORDER SOMETHING. UPON LEAVING PATIENTS ROOM, PATIENT CALLS THIS NURSE A RUDE ASS BITCH. NURSE RETURNED TO PATIENT ROOM TO ASK PATIENT TO PLEASE NOT CALL ME THAT THIS NURSE IS TRYING TO HELP. PATIENT DOES NOT ACKNOWLEDGE NURSE AND UTILIZES PHONE INSTEAD.
--- NOTE | 2025-01-07 08:35 | PC.NURSE ---
Pt requested to use restroom via wheelchair, pt was able to transfer from er stretcher to wheelchair and then from wheelchair to toilet. Pt screaming stating her pain is excruciating and she needs knocked out and that her pain meds were given hours ago
[2025-01-07] MEDS: methylPREDNISolone sod succ 125 mg/2 mL INJ IVP (08:41)
[2025-01-07] MEDS: orphenadrine 30 mg/mL Inj 2 mL 60 MG IM (08:41)
--- NOTE | 2025-01-07 09:49 | PC.NURSE ---
verbal order for blood cultures incorrectly input on this chart for room 8 instead of room 7, blood cultures drawn before order was canceled
--- NOTE | 2025-01-07 12:34 | PM.CONSULT ---
Providers/Reason For Consult Consulting Physician/Specialty*: ER Reason for Consult*: Postop pain Primary Care Provider: Willard Ham MD History of Present Illness History of Present Illness Lorie Chacon is a 44 year old female complaining of pain in her right leg. Stated that she did fine the first day and then woke up the second day after surgery with severe pain cramping in her leg. She is point to her right leg. At this point when she is sitting in bed she seems to be somewhat comfortable. Review of Systems General: Reports: 10 or more systems reviewed and unremarkable except in HPI and below Const: Denies: fever(s), chills or body aches Eyes: Denies: change in vision Card: Denies: chest pain, dyspnea on exertion or orthopnea Resp: Denies: dyspnea, productive cough or wheezing GI: Denies: abdominal pain, nausea or vomiting Musc: Denies: neck pain, back pain, extremity pain, joint pain, joint swelling or limited range of motion Skin/Breast: Denies: changes in skin color or dry skin Neuro: Denies: numbness in extremities or weakness in extremities Psych: Denies: anxiety or depression Amilcar/Lymph: Denies: easy bruising or easy bleeding Medications/Allergies Home Medications ?Medication ?Instructions ?Recorded ?Confirmed ?Last Taken ?Type acetaminophen 500 mg tablet 500 mg PO Q6H PRN Pain 11/06/24 01/07/25 Unknown History naproxen 500 mg tablet 500 mg PO Q12H PRN pain #10 tabs 11/06/24 01/07/25 Unknown Rx Held on 01/05/25. Instructions: Resume on 01/07/25. tizanidine 4 mg tablet 4 mg PO BID PRN muscle spasticity 11/19/24 01/07/25 Unknown Rx #60 tabs gabapentin 600 mg tablet 900 mg (1.5 x 600 mg) PO TID 30 12/09/24 01/07/25 01/04/25 Rx days #120 tabs buprenorphine 8 mg-naloxone 2 mg 1 film sublingual DAILY #30 ea 12/24/24 01/07/25 01/04/25 Rx sublingual film Held on 01/05/25. Instructions: Resume on 01/21/25. fluoxetine 20 mg capsule (Prozac) 20 mg PO DAILY #30 caps 12/24/24 01/07/25 01/04/25 Rx trazodone 100 mg tablet 200 mg (2 x 100 mg) PO .HS PRN 12/24/24 01/07/25 Unknown Rx insomnia #60 tabs hydrocodone 5 mg-acetaminophen 325 1 - 2 tab PO .Q4-6H #40 tabs 01/05/25 01/07/25 01/06/25 Rx mg tablet hydrocodone 10 mg-acetaminophen 1 - 2 tab PO Q4H PRN pain 7 days 01/07/25 Unknown Rx 325 mg tablet #42 tabs prednisone 20 mg tablet 20 mg PO TID #15 tabs 01/07/25 Unknown Rx tizanidine 4 mg capsule 4 mg PO Q6H PRN muscle spasticity 01/07/25 Unknown Rx 7 days #28 caps Allergies Allergy/AdvReac Type Severity Reaction Status Date / Time naltrexone Allergy ALGY-Difficulty Verified 01/04/25 14:43 Breathing PFSH Acute PFSH: Medical History Depression History of attempted suicide Psychiatric care Opiate abuse, episodic Methamphetamine dependence, episodic Pyuria Morbid obesity with BMI of 50.0-59.9, adult Fatty infiltration of liver Abnormal uterine bleeding (AUB) Urinary incontinence Asthma Benign essential HTN Uncontrolled type 2 diabetes mellitus, without long-term current use of insulin Hypothyroidism DDD (degenerative disc disease) Intervertebral disc disorders with radiculopathy, lumbar region Bilateral primary osteoarthritis of knee Gender dysphoria Nicotine dependence, cigarettes, uncomplicated Major depressive disorder, recurrent severe without psychotic features Surgical History H/O: hysterectomy History of ureter stent S/P laparoscopic appendectomy (04/19/20) History of endometrial biopsy (04/13/20) benign endocervical epithelium Hx of foot surgery Family History Mother Diabetes Sister Cancer ovarian Other Dementia Heart disease Hypertension Psychiatric illness Denies family history of CAD (coronary artery disease) Clotting disorder Hyperlipidemia Chronic kidney disease (CKD) Anesthesia complication Bleeding disorder Lung disease Stroke Social History Smoking and tobacco/nicotine status: unknown if used tobacco/nicotine Alcohol intake: current Alcohol intake frequency: other Alcohol type: beer and hard liquor Substance/Drug Use: former Date of last use: 2017 Lives independently: Yes Household members: other Details: partner and her mom Marital status: Single Number of children: 0 Current occupational status: disabled Current gender identity: Male and Other Gender Identity Comment: Goes by Saul, considering formal transition Special hero needs: No Agree to transfusion: Yes Vitals/I&O/Wt Last Vital Signs Temp 97.8 F 01/07/25 05:01 Pulse 105 H 01/07/25 12:28 Resp 16 01/07/25 12:28 BP 162/84 01/07/25 12:28 Pulse Ox 96 01/07/25 12:28 O2 Del Method Room Air 01/07/25 06:31 01/06/25 01/07/25 01/07/25 22:59 06:59 14:59 Intake Total 500 / 500 Balance 500 / 500 Weight last 48 hrs Weight 375 lb Physical Exam Narrative: Alert and oriented x 3 Head is normocephalic atraumatic Respirations are intact No evidence of any rashes or infection 5/5 strength in bilateral upper and lower extremities Sensation intact in all extremities Data 01/07/25 05:42 01/07/25 05:42 Micro: Microbiology 01/07/25 09:40 Blood Culture - Preliminary Blood SPECIMEN COLLECTED 01/07/25 09:41 Blood Culture - Preliminary Blood SPECIMEN COLLECTED A&P Assessment and plan (1) Status post lumbar laminectomy: Patient is postop day #2 from laminectomy Will discharge on prednisone increase her pain meds and muscle relaxant. Told to take it easy this weekend and we will see her in the clinic on Friday. She can cancel the appointment if she is feeling better. PDMP PDMP Reviewed: Last Reviewed 01/07/25 13:32 EDT by Emery Smith DO Coding Level of Care Code Acute Code for Chg Fwd Diagnoses Status post lumbar laminectomy Z98.890
== END 2025-01-07 12:34 | disposition home or self-care (01) ==
PROVIDERS: Emergency Medicine; Emergency Provider Family Medicine; PCP Family Medicine
DX: M54.10 Radiculopathy, site unspecified (principal); F60.3 Borderline personality disorder; E11.9 Type 2 diabetes mellitus without complications; I10 Essential (primary) hypertension
CPT/HCPCS: 36415; 80048; 85025; 87040; 96361; 96372; 96374; 96375; 96376; 99284; J2270; J2360; J2919; J7040; J7512; J9999

== ENCOUNTER 2025-01-11 10:59 | Emergency (ER) | payer MEDICARE, MEDICAID, SELFPAY ==
[2025-01-11 11:25] VITALS: BP 176/94; PULSE 81; RESP 17; TEMP 36.5; O2SAT 95; BMI 50.8
--- NOTE | 2025-01-11 12:44 | W.ED.BACK ---
HPI - Back Pain/Injury General: Chief Complaint: Back Pain/Injury Stated Complaint: Back Pain Time Seen by Provider: 01/11/25 12:09 Source: patient Mode of arrival: ambulatory Limitations: no limitations History of Present Illness: 44-year-old female who had a lumbar surgery last week states she been having back pain since then. States pain currently 6 out of 10 she is ambulatory no fevers she has appointment with her surgeon today. Associated symptoms: Deny abdominal pain, chills, fever(s), nausea or vomiting Related Data Home Medications ?Medication ?Instructions ?Recorded ?Confirmed acetaminophen 500 mg tablet 500 mg PO Q6H PRN Pain 11/06/24 01/07/25 Previous Rx's ?Medication ?Instructions ?Recorded naproxen 500 mg tablet 500 mg PO Q12H PRN pain #10 tabs 11/06/24 Held on 01/05/25. Instructions: Resume on 01/07/25. tizanidine 4 mg tablet 4 mg PO BID PRN muscle spasticity 11/19/24 #60 tabs gabapentin 600 mg tablet 900 mg (1.5 x 600 mg) PO TID 30 12/09/24 days #120 tabs buprenorphine 8 mg-naloxone 2 mg 1 film sublingual DAILY #30 ea 12/24/24 sublingual film Held on 01/05/25. Instructions: Resume on 01/21/25. fluoxetine 20 mg capsule (Prozac) 20 mg PO DAILY #30 caps 12/24/24 trazodone 100 mg tablet 200 mg (2 x 100 mg) PO .HS PRN 12/24/24 insomnia #60 tabs hydrocodone 5 mg-acetaminophen 325 1 - 2 tab PO .Q4-6H #40 tabs 01/05/25 mg tablet hydrocodone 10 mg-acetaminophen 1 - 2 tab PO Q4H PRN pain 7 days 01/07/25 325 mg tablet #42 tabs prednisone 20 mg tablet 20 mg PO TID #15 tabs 01/07/25 tizanidine 4 mg capsule 4 mg PO Q6H PRN muscle spasticity 01/07/25 7 days #28 caps Allergies Allergy/AdvReac Type Severity Reaction Status Date / Time naltrexone Allergy ALGY-Difficulty Verified 01/04/25 14:43 Breathing Review of Systems Const: Denies: fever(s), chills, body aches or change in appetite ENMT: Denies: throat pain or dental pain Card: Denies: chest pain Resp: Denies: dyspnea GI: Denies: abdominal pain, nausea, vomiting or diarrhea Musc: Reports: back pain; Denies: neck pain Skin/Breast: Denies: rash Neuro: Denies: headache(s) PFSH ED PFSH: Medical History Depression History of attempted suicide Psychiatric care Opiate abuse, episodic Methamphetamine dependence, episodic Pyuria Morbid obesity with BMI of 50.0-59.9, adult Fatty infiltration of liver Abnormal uterine bleeding (AUB) Urinary incontinence Asthma Benign essential HTN Uncontrolled type 2 diabetes mellitus, without long-term current use of insulin Hypothyroidism DDD (degenerative disc disease) Intervertebral disc disorders with radiculopathy, lumbar region Bilateral primary osteoarthritis of knee Gender dysphoria Nicotine dependence, cigarettes, uncomplicated Major depressive disorder, recurrent severe without psychotic features Surgical History H/O: hysterectomy History of ureter stent S/P laparoscopic appendectomy (04/19/20) History of endometrial biopsy (04/13/20) benign endocervical epithelium Hx of foot surgery Family History Mother Diabetes Sister Cancer ovarian Other Dementia Heart disease Hypertension Psychiatric illness Denies family history of CAD (coronary artery disease) Clotting disorder Hyperlipidemia Chronic kidney disease (CKD) Anesthesia complication Bleeding disorder Lung disease Stroke Social History Smoking and tobacco/nicotine status: unknown if used tobacco/nicotine Alcohol intake: current Alcohol intake frequency: other Alcohol type: beer and hard liquor Substance/Drug Use: former Date of last use: 2017 Lives independently: Yes Household members: other Details: partner and her mom Marital status: Single Number of children: 0 Current occupational status: disabled Current gender identity: Male and Other Gender Identity Comment: Goes by Saul, considering formal transition Special hero needs: No Agree to transfusion: Yes Physical Exam Const: COMMON NORMALS: no acute distress, patient oriented x3 and healthy appearing HENMT: COMMON NORMALS: normocephalic and atraumatic HEAD & SCALP: normocephalic and atraumatic Eye: COMMON NORMALS: conjunctivae normal CONJUNCTIVA: Yes conjunctivae normal Neck/C-Spine: COMMON NORMALS: full ROM and supple Chest: COMMONS NORMALS: normal inspection of the chest Resp: COMMON NORMALS: normal respiratory effort Cardio: COMMON NORMALS: regular rate RATE: regular rate Back/Pelvis: OTHER: Incisions clean dry and intact no signs of erythema Extremity: COMMON NORMALS: normal to inspection and full ROM Neuro: COMMON NORMALS: patient oriented x3, moves all extremities and no focal motor deficits Psych: COMMON NORMALS: mental status grossly normal, Normal thought process present and cooperative THOUGHT PROCESS: Normal thought process present Skin: COMMON NORMALS: no rashes or lesions noted and no wounds GENERAL SKIN EXAM: no rashes or lesions noted Course Vital Signs: Vital signs: Vital Signs Temperature 97.7 F 01/11/25 11:25 Pulse Rate 81 01/11/25 11:25 Respiratory Rate 17 01/11/25 11:25 Blood Pressure 176/94 01/11/25 11:25 Pulse Oximetry 95 01/11/25 11:25 Oxygen Delivery Me thod Room Air 01/11/25 11:25 MDM - Back Pain/Injury Medical Decision Making Patient presents for back pain is likely postop pain she is well-appearing here no signs of infection she has an appointment today with her surgeon she is stable for discharge and is to follow-up as scheduled today. Medical Records I reviewed the patient's medical records. No radiology studies performed this visit Discharge Plan Discharge Patient Disposition: Home Clinical Impression: Low back pain Condition: Stable Prescriptions: No Action gabapentin 600 mg tablet 900 mg PO TID 30 Days Qty: 120 6RF buprenorphine-naloxone 8-2 mg film 1 film sublingual DAILY Qty: 30 0RF fluoxetine [Prozac] 20 mg capsule 20 mg PO DAILY Qty: 30 2RF trazodone 100 mg tablet 200 mg PO .HS PRN (Reason: insomnia) Qty: 60 2RF tizanidine 4 mg tablet 4 mg PO BID PRN (Reason: muscle spasticity) Qty: 60 0RF acetaminophen 500 mg Tablet 500 mg PO Q6H PRN (Reason: Pain) naproxen 500 mg tablet 500 mg PO Q12H PRN (Reason: pain) Qty: 10 0RF hydrocodone-acetaminophen 5-325 mg tablet 1 - 2 tab PO .Q4-6H Qty: 40 0RF prednisone 20 mg tablet 20 mg PO TID Qty: 15 0RF Rx Instructions: 1 p.o. 3 times daily x3 days, 1 p.o. twice daily x2 days, 1 p.o. 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
[2025-01-11] MEDS: HYDROcodone-acetaminophen 10-325 mg Tablet 2 TAB PO (13:02)
== END 2025-01-11 13:01 | disposition home or self-care (01) ==
PROVIDERS: Emergency Provider Emergency Medicine; PCP Family Medicine
DX: M54.50 Low back pain, unspecified (principal); E11.9 Type 2 diabetes mellitus without complications; I10 Essential (primary) hypertension; Z98.890 Other specified postprocedural states
CPT/HCPCS: 99024; 99283; J9999

== ENCOUNTER → 2025-01-20 10:30 | Outpatient (BNVA) | payer MEDICARE, MEDICAID, SELFPAY | PROVIDERS: PCP Family Medicine; Visit Provider Orthopaedic Surgery | DX: Z98.890 Other specified postprocedural states (principal) | CPT/HCPCS: 99024 ==

== ENCOUNTER → 2025-01-26 12:04 | Outpatient (BNVA) | payer MEDICARE, MEDICAID, SELFPAY | PROVIDERS: PCP Family Medicine; Visit Provider Psychiatry & Neurology Psychiatry | DX: F11.20 Opioid dependence, uncomplicated (principal); F33.2 Major depressive disorder, recurrent severe without psychotic features; F15.20 Other stimulant dependence, uncomplicated; F15.21 Other stimulant dependence, in remission; F12.20 Cannabis dependence, uncomplicated; Z79.899 Other long term (current) drug therapy; F17.210 Nicotine dependence, cigarettes, uncomplicated | CPT/HCPCS: 80307 ==

== ENCOUNTER 2025-01-30 09:37 | Emergency (ER) | payer MEDICARE, MEDICAID, SELFPAY ==
[2025-01-30 09:39] VITALS: BP 163/119; PULSE 100; RESP 18; TEMP 36.6; O2SAT 98; BMI 52.2
--- NOTE | 2025-01-30 09:45 | XRR_ITS ---
PROCEDURE INFORMATION: Exam: XR Left Knee Exam date and time: 01/30/2025 9:48 AM Age: 44 years old Clinical indication: Left; Lt knee pain after twisting injury-unable to bear weight TECHNIQUE: Imaging protocol: Radiologic exam of the left knee. Views: 3 views. COMPARISON: CR XR knee LT 3V* [id number] 09/09/2023 6:05 PM FINDINGS: Bones/joints: Tricompartment osteoarthritis is identified, greatest of the patellofemoral articulation. There is severe lateral compartment and moderate medial compartment joint space narrowing. There is no fracture, lytic, or blastic lesion. Lateral view suggests a small joint effusion. No loose bodies are seen. Soft tissues: See Vasculature finding. Vasculature: Phleboliths calcifications are seen in the pretibial soft tissues. Soft tissues are otherwise unremarkable. Other findings: AP, notch, and lateral views. XR/XR knee LT 3V* [id number] IMPRESSION: 1. Tricompartment osteoarthritic changes. 2. Probable small joint effusion.
[2025-01-30] MEDS: HYDROcodone-acetaminophen 7.5-325 mg Tablet 1 TAB PO ×2 (09:55→11:20)
--- NOTE | 2025-01-30 10:09 | W.ED.EXTPRO ---
HPI - Extremity Problem General: Chief complaint: Extremity Injury, Lower Stated complaint: left knee pain Time Seen by Provider: 01/30/25 09:45 Source: patient and EMS Mode of arrival: EMS Limitations: no limitations History of Present Illness: 44-year-old female who states she had stood up yesterday felt a pop in her left knee and has had pain in that left knee since then. States she has had a hard time walking or bearing weight on that left side she denies any other injuries. Rates her pain a 6 out of 10 currently Associated symptoms: Deny chest pain, fever(s) or rash Related Data Home Medications ?Medication ?Instructions ?Recorded ?Confirmed acetaminophen 500 mg tablet 500 mg PO Q6H PRN Pain 11/06/24 01/30/25 Previous Rx's ?Medication ?Instructions ?Recorded naproxen 500 mg tablet 500 mg PO Q12H PRN pain #10 tabs 11/06/24 Held on 01/05/25. Instructions: Resume on 01/07/25. tizanidine 4 mg tablet 4 mg PO BID PRN muscle spasticity 11/19/24 #60 tabs gabapentin 600 mg tablet 900 mg (1.5 x 600 mg) PO TID 30 12/09/24 days #120 tabs fluoxetine 20 mg capsule (Prozac) 20 mg PO DAILY #30 caps 12/24/24 trazodone 100 mg tablet 200 mg (2 x 100 mg) PO .HS PRN 12/24/24 insomnia #60 tabs buprenorphine 8 mg-naloxone 2 mg 1 film sublingual DAILY #30 ea 01/27/25 sublingual film Allergies Allergy/AdvReac Type Severity Reaction Status Date / Time naltrexone Allergy ALGY-Difficulty Verified 01/26/25 11:32 Breathing Review of Systems Const: Denies: fever(s), chills, body aches or change in appetite ENMT: Denies: throat pain or dental pain Card: Denies: chest pain Resp: Denies: dyspnea GI: Denies: abdominal pain, nausea, vomiting or diarrhea Musc: Reports: extremity pain; Denies: neck pain or back pain Skin/Breast: Denies: rash Neuro: Denies: headache(s) PFSH ED PFSH: Medical History Depression History of attempted suicide Psychiatric care Opiate abuse, episodic Methamphetamine dependence, episodic Pyuria Morbid obesity with BMI of 50.0-59.9, adult Fatty infiltration of liver Abnormal uterine bleeding (AUB) Urinary incontinence Asthma Benign essential HTN Uncontrolled type 2 diabetes mellitus, without long-term current use of insulin Hypothyroidism DDD (degenerative disc disease) Intervertebral disc disorders with radiculopathy, lumbar region Bilateral primary osteoarthritis of knee Gender dysphoria Nicotine dependence, cigarettes, uncomplicated Major depressive disorder, recurrent severe without psychotic features Surgical History H/O: hysterectomy History of ureter stent S/P laparoscopic appendectomy (04/19/20) History of endometrial biopsy (04/13/20) benign endocervical epithelium Hx of foot surgery Family History Mother Diabetes Sister Cancer ovarian Other Dementia Heart disease Hypertension Psychiatric illness Denies family history of CAD (coronary artery disease) Clotting disorder Hyperlipidemia Chronic kidney disease (CKD) Anesthesia complication Bleeding disorder Lung disease Stroke Social History Smoking and tobacco/nicotine status: current every day tobacco/nicotine user cigarettes Packs smoked per day: 0.50 Alcohol intake: current Alcohol intake frequency: other Alcohol type: beer and hard liquor Substance/Drug Use: former Date of last use: 2017 Lives independently: Yes Household members: other Details: partner and her mom Marital status: Single Number of children: 0 Current occupational status: disabled Current gender identity: Male and Other Gender Identity Comment: Goes by Saul, considering formal transition Special hero needs: No Agree to transfusion: Yes Physical Exam Const: COMMON NORMALS: no acute distress, patient oriented x3 and healthy appearing HENMT: COMMON NORMALS: normocephalic and atraumatic HEAD & SCALP: normocephalic and atraumatic Neck/C-Spine: COMMON NORMALS: full ROM and supple Chest: COMMONS NORMALS: normal inspection of the chest Resp: COMMON NORMALS: normal respiratory effort Cardio: COMMON NORMALS: regular rate RATE: regular rate Extremity: COMMON NORMALS: full ROM NARRATIVE EXTREMITY EXAM: Tenderness noted to the left knee no obvious deformity distal pulse sensation intact Neuro: COMMON NORMALS: patient oriented x3, moves all extremities and no focal motor deficits Psych: COMMON NORMALS: mental status grossly normal, Normal thought process present and cooperative THOUGHT PROCESS: Normal thought process present Skin: COMMON NORMALS: no rashes or lesions noted and no wounds GENERAL SKIN EXAM: no rashes or lesions noted Course Vital Signs: Vital signs: Vital Signs Temperature 97.9 F 01/30/25 09:39 Pulse Rate 100 01/30/25 09:39 Respiratory Rate 18 01/30/25 09:39 Blood Pressure 163/119 01/30/25 09:39 Pulse Oximetry 98 01/30/25 09:39 Oxygen Delivery Me thod Room Air 01/30/25 09:39 MDM - Extremity (Nontraumatic) Medical Decision Making Patient presents with a knee sprain x-ray here is negative I did give her crutches along the immobilizer she is to follow-up with orthopedics return if worsening. Medical Records I reviewed the patient's medical records. Lab Data Radiology Impressions Knee X-Ray 01/30/25 09:45 IMPRESSION: 1. Tricompartment osteoarthritic changes. 2. Probable small joint effusion. All radiology interpretation(s) finalized by discharge Discharge Plan Discharge Patient Disposition: Home Clinical Impression: History of knee sprain Condition: Stable Prescriptions: No Action gabapentin 600 mg tablet 900 mg PO TID 30 Days Qty: 120 6RF fluoxetine [Prozac] 20 mg capsule 20 mg PO DAILY Qty: 30 2RF trazodone 100 mg tablet 200 mg PO .HS PRN (Reason: insomnia) Qty: 60 2RF tizanidine 4 mg tablet 4 mg PO BID PRN (Reason: muscle spasticity) Qty: 60 0RF buprenorphine-naloxone 8-2 mg film 1 film sublingual DAILY Qty: 30 0RF acetaminophen 500 mg Tablet 500 mg PO Q6H PRN (Reason: Pain) naproxen 500 mg tablet 500 mg PO Q12H PRN (Reason: pain) Qty: 10 0RF Discharge Orders: Discharge ED (Routine); Ordered 01/30/25 Ordered By: Nolan Rodriguez Referrals: Emery Smith DO [Physician, Orthopedics] - 4-7 days Willard Ham MD [Primary Care Provider, Family Practice] Discharge Diet: Advance as tolerated Discharge Activity: Resume usual activity Patient Instructions: Knee Sprain (ED) Print Language: Setswana Coding Level of Care Code ED 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
[2025-01-30 11:31] VITALS: BP 189/109; PULSE 101; O2SAT 98
--- NOTE | 2025-01-30 11:40 | PC.NURSE ---
this RN attempted to place knee immobilizer on pt prior to d/c and pt was yelling that she was unable to straighten out her leg and that she doesnt know how she is going to fit in a car with immobilizer in place. pt requested that immobilizer be sent home with her instead of being applied prior to d/c. pt education provided. pt still refused to have immobilizer applied. Dr. Rodriguez notified, immobilizer and crutches sent home with patient.
--- NOTE | 2025-01-31 07:49 | DCPLANNER ---
messaged ortho for er f/u
== END 2025-01-30 11:31 | disposition home or self-care (01) ==
PROVIDERS: Emergency Provider Emergency Medicine; PCP Family Medicine
DX: M25.562 Pain in left knee (principal); Z88.8 Allergy status to other drugs, medicaments and biological substances; I10 Essential (primary) hypertension; E11.9 Type 2 diabetes mellitus without complications; E03.9 Hypothyroidism, unspecified; F17.210 Nicotine dependence, cigarettes, uncomplicated; Z87.828 Personal history of other (healed) physical injury and trauma
CPT/HCPCS: 73562; 99283; J9999

== ENCOUNTER → 2025-02-08 13:30 | Outpatient (BNVA) | payer MEDICARE, MEDICAID, SELFPAY | PROVIDERS: PCP Family Medicine; Visit Provider Orthopaedic Surgery | DX: M17.11 Unilateral primary osteoarthritis, right knee (principal); S89.91XA Unspecified injury of right lower leg, initial encounter; X58.XXXA Exposure to other specified factors, initial encounter | CPT/HCPCS: 73560; 73565; 99213 ==

== ENCOUNTER → 2025-02-24 13:50 | Outpatient (BNVA) | payer MEDICARE, MEDICAID, OTHER, SELFPAY | PROVIDERS: PCP Family Medicine; Visit Provider Psychiatry & Neurology Psychiatry | DX: F11.20 Opioid dependence, uncomplicated (principal); F15.21 Other stimulant dependence, in remission; Z79.899 Other long term (current) drug therapy | CPT/HCPCS: 80307 ==

== ENCOUNTER → 2025-02-28 09:53 | Outpatient (BNVA) | payer MEDICARE, MEDICAID, SELFPAY | PROVIDERS: PCP Family Medicine; Visit Provider Nurse Practitioner | DX: M17.0 Bilateral primary osteoarthritis of knee (principal); Z68.43 Body mass index [BMI] 50.0-59.9, adult | CPT/HCPCS: 20610; 73560; 73565; 99214; J1100; J2795; J3301; J9999 ==

== ENCOUNTER → 2025-05-16 12:57 | Outpatient (BNVA) | payer MEDICARE, MEDICAID, OTHER, SELFPAY | PROVIDERS: PCP Family Medicine; Visit Provider Psychiatry & Neurology Psychiatry | DX: F11.20 Opioid dependence, uncomplicated (principal); F15.21 Other stimulant dependence, in remission; F12.20 Cannabis dependence, uncomplicated; Z79.899 Other long term (current) drug therapy | CPT/HCPCS: 80307 ==

== ENCOUNTER → 2025-06-03 10:46 | Outpatient (BNVA) | payer MEDICARE, MEDICAID, SELFPAY | PROVIDERS: PCP Family Medicine; Visit Provider Nurse Practitioner | DX: M17.0 Bilateral primary osteoarthritis of knee (principal) | CPT/HCPCS: 20610; 99213; J1100; J2795; J3301; J9999 ==

== ENCOUNTER → 2025-06-20 13:43 | Outpatient (BNVA) | payer MEDICARE, MEDICAID, SELFPAY | PROVIDERS: PCP Family Medicine; Visit Provider Nurse Practitioner Family | DX: M54.16 Radiculopathy, lumbar region (principal); G89.29 Other chronic pain; R03.0 Elevated blood-pressure reading, without diagnosis of hypertension; M54.9 Dorsalgia, unspecified | CPT/HCPCS: 99214 ==

== ENCOUNTER → 2025-07-05 13:55 | Outpatient (BNVA) | payer MEDICARE, MEDICAID, SELFPAY | PROVIDERS: PCP Family Medicine | DX: E11.65 Type 2 diabetes mellitus with hyperglycemia (principal) | CPT/HCPCS: 80053; 80061; 83036; 85025 ==